=== PATIENT | female | born 1980 | race Caucasian/White ===

== ENCOUNTER 2022-09-04 09:19 | Outpatient (OUT) | payer OTHER, SELFPAY ==
[2022-09-04 10:25] LABS: Erythrocyte Sedimentation Rate 18 mm/hr (<=20)
[2022-09-04 11:12] LABS: Alanine Aminotransferase 35 U/L (14-59); Albumin Level 3.8 g/dL (3.4-5.0); Alkaline Phosphatase 114 U/L (46-116); Anion Gap 13.8; Aspartate Amino Transferase 26 U/L (15-37); BUN Creatinine Ratio 12.4; Bilirubin Total 0.3 mg/dL (0.2-1.0); C Reactive Protein 0.8 mg/dL (<=1.0); Calcium 8.8 mg/dL (8.5-10.1); Carbon Dioxide 25.6 mmol/L (21.0-32.0); Chloride 103 mmol/L (98-107); Estimated GFR (African America >60 (>=60); Estimated GFR (Non-African Ame 58 (>=60); Globulin 3.9 g/dL; Glucose 142 mg/dL (74-106); Potassium 3.4 mmol/L (3.5-5.1); Sodium 139 mmol/L (136-145); Thyroid Stimulating Hormone 1.884 uIU/mL (0.358-3.740); Total Protein 7.7 g/dL (6.4-8.2)
[2022-09-04 11:42] LABS: Free T4 0.64 ng/dL (0.76-1.46)
[2022-09-05 14:11] LABS: Antinuclear Antibodies, IFA Negative (.)
[2022-09-05 15:07] LABS: Albumin 3.9 g/dL (2.9-4.4); Alpha-1-Globulin 0.3 g/dL (0.0-0.4); Gamma Globulin 0.8 g/dL (0.4-1.8); Protein, Total 7.1 g/dL (6.0-8.5)
[2022-09-07 14:07] LABS: Methylmalonic Acid, Serum 168 nmol/L (0-378)
== END 2022-09-04 09:20 | disposition home or self-care (01) ==
LOC: LAB 09:26
PROVIDERS: PCP Nurse Practitioner Family; Visit Provider Physician Assistant Medical
DX: R20.2 Paresthesia of skin (principal); M79.10 Myalgia, unspecified site; M79.606 Pain in leg, unspecified
CPT/HCPCS: 36415; 80053; 82607; 82746; 83921; 84439; 84443; 85652; 86038; 86140

== ENCOUNTER 2022-10-11 10:22 | Outpatient (OUT) | payer OTHER, SELFPAY ==
[2022-10-11 10:55] LABS: Basophils Absolute Auto 0.1 10^3/uL (0.0-0.1); Basophils Percent Auto 0.8 % (0.2-2.0); Eosinophils Absolute Auto 0.2 10^3/uL (0.0-0.7); Eosinophils Percent Auto 1.8 % (0.9-7.0); Hematocrit 40.2 % (36.0-48.0); Immature Granulocytes Abs Auto 0.04 10^3/uL (0.00-0.03); Immature Granulocytes Pct Auto 0.4 % (0.0-0.5); Lymphocytes Absolute Auto 3.2 10^3/uL (1.2-3.8); Lymphocytes Percent Auto 32.9 % (20.5-60.0); Mean Corpuscular HGB Conc 32.3 g/dL (29.9-35.2); Mean Corpuscular Hemoglobin 28.3 pg (26.7-34.0); Mean Corpuscular Volume 87.6 fL (81.0-99.0); Mean Platelet Volume 8.4 fL (9.5-13.5); Monocytes Absolute Auto 0.6 10^3/uL (0.3-0.8); Neutrophils Absolute Auto 5.7 10^3/uL (1.4-6.5); Neutrophils Percent Auto 58.1 % (43.0-75.0); Platelet Count 371 10^3/uL (150-450); Red Blood Count 4.59 10^6/uL (4.20-5.40); Red Cell Distribution Width 14.9 % (11.0-15.0); White Blood Count 9.8 10^3/uL (4.0-11.0)
[2022-10-11 11:35] LABS: Estimated Average Glucose 114 mg/dL; Glycohemoglobin A1C 5.6 % (4.5-6.2)
[2022-10-11 11:50] LABS: Alanine Aminotransferase 49 U/L (14-59); Albumin Globulin Ratio 1.1; Alkaline Phosphatase 109 U/L (46-116); Anion Gap 14.3; Aspartate Amino Transferase 21 U/L (15-37); BUN Creatinine Ratio 14.8; Bilirubin Total 0.3 mg/dL (0.2-1.0); Calcium 8.9 mg/dL (8.5-10.1); Carbon Dioxide 26.7 mmol/L (21.0-32.0); Chloride 101 mmol/L (98-107); Chol HDL Ratio 4.2; Cholesterol 172 mg/dL (<=200); Estimated GFR (African America >60 (>=60); Estimated GFR (Non-African Ame 56 (>=60); Globulin 3.7 g/dL; Glucose 116 mg/dL (74-106); HDL Cholesterol 41 mg/dL (40-60); Sodium 138 mmol/L (136-145); Total Protein 7.7 g/dL (6.4-8.2); Triglycerides 60 mg/dL (<=150)
== END 2022-10-11 10:23 | disposition home or self-care (01) ==
PROVIDERS: PCP Nurse Practitioner Family; Visit Provider Nurse Practitioner Family
DX: R63.5 Abnormal weight gain (principal); E78.5 Hyperlipidemia, unspecified
CPT/HCPCS: 36415; 80053; 80061; 83036; 83540; 85025

== ENCOUNTER 2023-02-07 11:03 | Emergency (ER) | payer OTHER, SELFPAY ==
[2023-02-07 11:05] VITALS: BP 168/97; PULSE 102; RESP 16; TEMP 36.6; O2SAT 99; BMI 41.1
--- NOTE | 2023-02-07 11:28 | ED.GENADUL1 ---
HPI - General Adult General Chief complaint: Skin/Abscess/Foreign Body Stated complaint: LOCALIZED SWELLING AND REDNESS Time Seen by Provider: 02/07/23 11:20 Source: patient Mode of arrival: walk-in History of Present Illness HPI narrative: this patient's here for evaluation or redness at her site of the injection when she recently had influenza and cold vaccine. She's not had previous reactions to either. She stopped her methotrexate before getting this reaction at the advice of her physician. She has rheumatoid arthritis. She's not on any other immunosuppressants. She currently is taking all of her Augmentin, for recently diagnosed urinary tract infection. She does not believe that her facility did a culture of her urine. So she's been on the Augmentin for several days. She does not have any difficulty breathing. She says the areas just little achy and it itches. Related Data Home Medications Medication Instructions Recorded Confirmed amoxicillin 500 mg-potassium 1 tab PO BID 02/07/23 02/07/23 clavulanate 125 mg tablet buspirone 10 mg tablet 10 mg PO BID 02/07/23 02/07/23 cetirizine 5 mg-pseudoephedrine ER 1 tab PO DAILY PRN allergy symptoms 02/07/23 02/07/23 120 mg tablet,extended release,12hr (All Day Allergy-D) cyanocobalamin (vitamin B-12) 1,000 mcg IM .QMONTH 02/07/23 02/07/23 1,000 mcg/mL injection solution duloxetine 20 mg capsule,delayed 20 mg PO QPM 02/07/23 02/07/23 release (Cymbalta) furosemide 20 mg tablet (Lasix) 20 mg PO BID 02/07/23 02/07/23 meloxicam 15 mg tablet 15 mg PO QPM 02/07/23 02/07/23 multivitamin 1 tab PO DAILY 02/07/23 02/07/23 potassium chloride 10 mEq 10 meq PO BID 02/07/23 02/07/23 tablet,extended release quetiapine 50 mg tablet (Seroquel) 50 mg PO QPM 02/07/23 02/07/23 simvastatin 20 mg tablet 20 mg PO QPM 02/07/23 02/07/23 sumatriptan succinate 50 mg tablet See Rx Instructions PO .COMPLEX 02/07/23 02/07/23 (Imitrex) tizanidine 4 mg tablet 12 mg PO QPM 02/07/23 02/07/23 topiramate 25 mg tablet 75 mg PO QPM 02/07/23 02/07/23 trazodone 50 mg tablet 50 mg PO QPM PRN sleep 02/07/23 02/07/23 zolpidem 10 mg tablet (Ambien) 10 mg PO QPM PRN sleep 02/07/23 02/07/23 Allergies Allergy/AdvReac Type Severity Reaction Status Date / Time metformin Allergy Severe Verified 02/07/23 11:09 Sulfa (Sulfonamide Allergy Severe Verified 02/07/23 11:09 Antibiotics) Exam Narrative Exam Narrative: awake alert pleasant slightly elevation of her blood pressure. She does not appear ill or toxic. Her skin and integument do not show any rash with the exception of the area of erythema in her left deltoid area where she receives the injections. Her legs lips mouth tongue are normal with no swelling or difficulty breathing or speaking. She does not have generalized pruritus. There is no lymphangitis. The area of erythema is approximately 6-1/2-7 cm. This is all consistent with a localized reaction/non-anaphylactic and is not cellulitis. Constitutional Vital Signs, click to edit/add: Last Vital Signs Temp 97.9 F 02/07/23 11:05 Pulse 102 H 02/07/23 11:05 Resp 16 02/07/23 11:05 BP 168/97 H 02/07/23 11:05 Pulse Ox 99 02/07/23 11:05 O2 Del Method Room Air 02/07/23 11:05 Course Vital Signs Vital signs: Vital Signs Temperature 97.9 F 02/07/23 11:05 Pulse Rate 102 H 02/07/23 11:05 Respiratory Rate 16 02/07/23 11:05 Blood Pressure 168/97 H 02/07/23 11:05 Pulse Oximetry 99 02/07/23 11:05 Oxygen Delivery Method Room Air 02/07/23 11:05 Temperature 97.9 F 02/07/23 11:05 Pulse Rate 102 H 02/07/23 11:05 Respiratory Rate 16 02/07/23 11:05 Blood Pressure 168/97 H 02/07/23 11:05 Pulse Oximetry 99 02/07/23 11:05 Oxygen Delivery Method Room Air 02/07/23 11:[address] [facility] Narrative Medical decision making narrative: localized reaction from vaccine Discharge Plan Discharge Chief Complaint: Skin/Abscess/Foreign Body Clinical Impression: Accelerated inflammatory response to pneumococcal vaccine Patient Disposition: Home, Self-Care Time of Disposition Decision: 11:31 Prescriptions / Home Meds: No Action amoxicillin-pot clavulanate 500-125 mg tablet 1 tab PO BID buspirone 10 mg tablet 10 mg PO BID cyanocobalamin (vitamin B-12) 1,000 mcg/mL solution 1,000 mcg IM .QMONTH duloxetine [Cymbalta] 20 mg capsule,delayed release(DR/EC) 20 mg PO QPM furosemide [Lasix] 20 mg tablet 20 mg PO BID meloxicam 15 mg tablet 15 mg PO QPM multivitamin Tablet 1 tab PO DAILY potassium chloride 10 mEq tablet extended release 10 meq PO BID quetiapine [Seroquel] 50 mg tablet 50 mg PO QPM simvastatin 20 mg tablet 20 mg PO QPM tizanidine 4 mg tablet 12 mg PO QPM topiramate 25 mg tablet 75 mg PO QPM zolpidem [Ambien] 10 mg tablet 10 mg PO QPM PRN (Reason: sleep) trazodone 50 mg tablet 50 mg PO QPM PRN (Reason: sleep) cetirizine-pseudoephedrine [All Day Allergy-D] 5-120 mg tablet extended release 12 hr 1 tab PO DAILY PRN (Reason: allergy symptoms) sumatriptan succinate [Imitrex] 50 mg tablet See Rx Instructions .ROUTE .COMPLEX Rx Instructions: take 1 tab at onset of headache; if no relief may repeat 1 tab after at least 2 hrs; max = 4 tabs/24 hr Additional Instructions: apply ice to area for several days./May use Benadryl as needed Stand Alone Forms: Portal Instructions Referrals: CALVIN REIS [Primary Care Provider] - 1 week
== END 2023-02-07 11:40 | disposition home or self-care (01) ==
PROVIDERS: Emergency Provider Emergency Medicine Emergency Medical Services; PCP Nurse Practitioner Family
DX: T88.1XXA Other complications following immunization, not elsewhere classified, initial encounter (principal); M06.9 Rheumatoid arthritis, unspecified; Z79.899 Other long term (current) drug therapy; Z87.440 Personal history of urinary (tract) infections
CPT/HCPCS: 99282

== ENCOUNTER 2023-09-29 11:51 | Outpatient (OUT) | payer OTHER, SELFPAY ==
--- OUTSIDE RECORDS SUMMARY | 2023-09-29 11:56 | XMS_ITS | CCD ---
Author Organization [facility]iniSynd Care Team Providers Care Acquisition Manager Name Role Phone MD Boyd Herrera Primary Care Provider [phone] NORTH Reis Attending Provider [phone] CHATO, JENNY Admitting Unavailable CHATO, JENNY Attending Unavailable CHATO, JENNY Consulting Unavailable HOY ., DR CACERES Primary Care Unavailable CHATO, JENNY Admitting Unavailable CHATO, JENNY Attending Unavailable HOY ., DR CACERES Primary Care Unavailable CHATA ., JACEK Consulting Unavailable CHATA ., JACEK Admitting Unavailable HEMEYER ., DR CASTLE Primary Care Unavailable CHATA ., JACEK Attending Unavailable KEITH PETER Consulting Unavailable CHATO, JENNY Attending Unavailable CHATO, JENNY Admitting Unavailable HEMEYER ., DR CASTLE Primary Care Unavailable CHATO, JENNY Attending Unavailable CHATO, JENNY Admitting Unavailable HEMEYER ., DR CASTLE Primary Care Unavailable MD Boyd Herrera Primary Care Provider TATUM Duran Attending Provider MD Huey Sims Referring Provider MD Boyd Herrera Primary Care Provider TATUM Duran Attending Provider MD Huey Sims Referring Provider BLAYNE Dillard Attending Provider MD Boyd Herrera Primary Care Provider BLAYNE Dillard Attending Provider NORTH Ries Attending Provider TATUM Duran Attending Provider MD Huey Sims Referring Provider [phone] TATUM Duran Attending Provider MD Huey Sims Referring Provider MD Boyd Herrera Primary Care Provider [phone] BLAYNE Dillard Attending Provider Boyd Herrera Primary Care Unavailable Jenny Reis Admitting Unavailable Jenny Reis Attending Unavailable Gilma, Disha Attending Unavailable Boyd Herrera Primary Care Unavailable Gilma, Disha Admitting Unavailable Huey Sims Referring Unavailable Boyd Herrera Primary Care Unavailable Nicki Duran Admitting Unavail able Nicki Duran Attending Unavail able Gilma, Disha Attending Unavailable Boyd Herrera Primary Care Unavailable Disha Dillard Admitting Unavailable DISHA DILLARD Attending Unavailable ABUGHARBYEH, AYA Referring Unavailable PERKINS, CARLOS Referring Unavailable PERKINS, CARLOS Attending Unavailable PERKINS, CARLOS Referring Unavailable ABUGHARBYEH, AYA Referring Unavailable PERKINS, CARLOS Attending Unavailable PERKINS, CARLOS Referring Unavailable PERKINS, CARLOS Attending Unavailable PERKINS, CARLOS Referring Unavailable ABUGHARBYEH, AYA Referring Unavailable PERKINS, CARLOS Attending Unavailable PERKINS, CARLOS Referring Unavailable ABUGHARBYEH, AYA Referring Unavailable PERKINS, CARLOS Referring Unavailable PERKINS, CARLOS Attending Unavailable PERKINS, CARLOS Referring Unavailable ABUGHARBYEH, AYA Referring Unavailable ABUGHARBYEH, AYA Attending Unavailable ABUGHARBYEH, AYA Referring Unavailable ABUGHARBYEH, AYA Attending Unavailable PERKINS, CARLOS Attending Unavailable ABUGHARBYEH, AYA Attending Unavailable ABUGHARBYEH, AYA Attending Unavailable ABUGHARBYEH, AYA Attending Unavailable ABUGHARBYEH, AYA Attending Unavailable PERKINS, CARLOS Attending Unavailable ABUGHARBYEH, AYA Referring Unavailable ABUGHARBYEH, AYA Attending Unavailable BALDEV, ESTRELLITA Attending Unavailable PERKINS, CARLOS Referring Unavailable Allergies Allergy Classification Reported Allergen(s) Allergy Type Date of Onset Reaction(s) Facility (8 sources) metFORMIN Drug Allergy 11-05-19 Unknown Reaction, Gastrointestinal Upset [facility] [place] Repository (2 sources) pioglitazone Drug Allergy [facility] Repository (2 sources) Sulfonamides (Antibiotic) Drug allergy (disorder) 12-19-19 14 [facility] [place] Repository (8 sources) pioglitazone; Translations: [pioglitazone] Drug Allergy 11-05-19 Gastrointestinal Upset [facility] (8 sources) Sulfonamides (Antibiotic); Translations: [Sulfa (Sulfonamide Antibiotics)] Propensity to adverse reactions 08-27-19 Unknown Reaction, Difficulty Breathing [facility] (1 source) metFORMIN Drug Allergy 03-26-19 [facility] Repository (1 source) Acarbose; Translations: [ACARBOSE] Drug Allergy 08-27-19 [facility] Repository (1 source) metFORMIN; Translations: [METFORMIN HCL] Drug Allergy 08-27-19 [facility] Repository Medications Current Medications Medication Drug Class(es) Dates Sig (Normalized) Sig (Original) Cetirizine / Pseudoephedrine (6 sources) alpha-Adrenergic Agonist, Histamine-1 Receptor Antagonist Start: 11-03-2022 take 1 tablet by mouth once daily, then take 1 tablet by mouth every twelve hours Cetirizine-Pseud oephedrine (Zyrtec-D) 5-120 mg Tablet Extended Release 12 Hr Active 1 TAB PO Daily November 02, 2022 11:00pm Start: 11-03-2022 take 1 tablet by bentley th every twelve hours, then take 1 tablet by mouth every twelve hours Cetirizine-Pseudoephedrine (Zyrtec-D) 5- 120 mg Tablet Extended Release 12 Hr Active 1 TAB PO Q12H November 02, 2022 11:00pm Start: 11-03-2022 take 1 tablet by bentley th every twelve hours, then take 1 tablet by mouth every twelve hours Cetirizine-Pseudoephedrine (Zyrtec-D) 5- 120 mg Tablet Extended Release 12 Hr Active 1 TAB PO Q12H November 03, 2022 12:00am sprinkle DULoxetine 20 mg delayed release oral capsule (6 sources) Serotonin and Norepinephrine Reuptake Inhibitor Start: 11-03-2022 take 20 mg by mouth at bedtime Duloxetine Active 20 MG PO Bedtime November 02, 2022 11:00pm ferrous sulfate 325 mg oral tablet (7 sources) Start: 11-20-2022 End: 02-20-2023 take 325 mg by mouth once daily Ferrous Sulfate Active 325 MG PO Daily February 20, 2023 10:59am folic acid 1 mg oral tablet (1 source) Start: 03-26-2023 take 5 mg by mouth twice daily Folic Acid Active 5 MG PO Twice daily March 26, 2023 12:00am 1.5 ml fremanezumab-vfrm 150 mg/ml prefilled syringe (6 sources) Start: 11-03-2022 Fremanezumab-V fr m (Ajovy Autoinjector) 225 mg/1.5 mL Auto-Injector Active 225 MG SUBCUT Q30D November 02, 2022 11:00pm furosemide 20 mg oral tablet (6 sources) Loop Diuretic Start: 11-03-2022 take 1 tablet by mouth twice daily Furosemide (Lasix) 20 mg Tablet Active 20 MG PO Twice daily November 02, 2022 11:00pm Start: 11-03-2022 take 1 tablet by bentley th once daily Furosemide (Lasix) 20 mg Tablet Active 20 MG PO Daily November 02, 2022 11:00pm meloxicam 7.5 mg oral tablet (6 sources) Nonsteroidal Anti-inflammatory Drug Start: 11-04-2022 take 2 tablets by mouth at bedtime Meloxicam (Mobic) 7.5 mg Tablet Active 15 MG PO Bedtime November 03, 2022 11:00pm Start: 11-04-2022 take 1 tablet by bentley th once daily Meloxicam (Mobic) 7.5 mg Tablet Active 7.5 MG PO Daily November 03, 2022 11:00pm methotrexate 2.5 mg oral tablet (2 sources) Folate Analog Metabolic Inhibitor Start: 02-20-2023 Methotrexate Sodium (Methotrexate (Anti-Rheumatic)) 2.5 mg Tablet Active 12.5 MG PO every week February 20, 2023 12:00am On thursday night Start: 02-20-2023 take 1 tablet by bentley th every week Methotrexate Sodium (Methotrexate (Anti-Rheumatic)) 2.5 mg Tablet Active 2.5 MG PO every week February 20, 2023 12:00am Multivitamin (Multiple Vitamin) Tablet (6 sources) Start: 11-04-2022 take 1 tablet by mouth once daily Multivitamin (Multiple Vitamin) Tablet Active 1 TAB PO Daily November 03, 2022 11:00pm Start: 11-04-2022 take 1 tablet by bentley th once daily Multivitamin (Multiple Vitamin) Tablet Active 1 TAB PO Daily November 04, 2022 12:00am ondansetron 4 mg oral tablet (6 sources) Serotonin-3 Receptor Antagonist Start: 11-03-2022 take 1 tablet by mouth once daily Ondansetron Hcl (Zofran) 4 mg Tablet Active 4 MG PO Daily November 02, 2022 11:00pm phentermine hydrochloride 37.5 mg oral tablet (6 sources) Sympathomimetic Amine Anorectic Start: 11-04-2022 take 1 tablet by mouth once daily 30 minutes after breakfast Phentermine (Adipex-P) 37.5 mg Tablet Active 37.5 MG PO Daily November 03, 2022 11:00pm must administer 30 minutes before or 1-2 hours after breakfast potassium chloride 10 meq extended release oral tablet (1 source) Start: 03-26-2023 take 10 mEq by mouth twice daily Potassium Chloride Active 10 MEQ PO Twice daily March 26, 2023 12:00am predniSONE 5 mg oral tablet (2 sources) Start: 02-20-2023 Prednisone Active 5 MG PO As Directed February 20, 2023 12:00am see taper instructions QUEtiapine 25 mg oral tablet (6 sources) Atypical Antipsychotic Start: 11-03-2022 take 1 tablet by mouth once daily at bedtime Quetiapine (Seroquel) 25 mg Tablet Active 25 MG PO Daily at bedtime November 02, 2022 11:00pm simvastatin 20 mg oral tablet (6 sources) HMG-CoA Reductase Inhibitor Start: 11-03-2022 take 20 mg by mouth once daily Simvastatin Active 20 MG PO Daily November 02, 2022 11:00pm SUMAtriptan 50 mg oral tablet (6 sources) Serotonin-1b and Serotonin-1d Receptor Agonist Start: 11-03-2022 take 1 tablet by mouth once Sumatriptan Succinate (Imitrex) 50 mg Tablet Active 50 MG PO Once November 02, 2022 11:00pm tiZANidine 4 mg oral tablet (6 sources) Central alpha-2 Adrenergic Agonist Start: 11-03-2022 take 4 mg by mouth once daily at bedtime Tizanidine Active 4 MG PO Daily at bedtime November 02, 2022 11:00pm topiramate 25 mg oral tablet (6 sources) Start: 11-03-2022 take 4 tablets by mouth once daily at bedtime Topiramate (Topamax) 25 mg Tablet Active 100 MG PO Daily at bedtime November 02, 2022 11:00pm 3 tablets Start: 11-03-2022 take 1 tablet by bentley th once daily at bedtime Topiramate (Topamax) 25 mg Tablet Active 25 MG PO Daily at bedtime November 02, 2022 11:00pm 3 tablets traZODone hydrochloride 50 mg oral tablet (6 sources) Serotonin Reuptake Inhibitor Start: 11-03-2022 take 50 mg by mouth once daily at bedtime Trazodone Active 50 MG PO Daily at bedtime November 02, 2022 11:00pm zolpidem tartrate 10 mg oral tablet (6 sources) gamma-Aminobutyri c Acid-ergic Agonist Start: 11-03-2022 take 10 mg by mouth once daily at bedtime Zolpidem Active 10 MG PO Daily at bedtime November 02, 2022 11:00pm Completed/Discontinued Medications Medication Drug Class(es) Dates Sig (Normalized) Sig (Original) 24 hr amphetamine aspartate 5 mg / amphetamine sulfate 5 mg / dextroamphetamine saccharate 5 mg / dextroamphetamine sulfate 5 mg extended release oral capsule (6 sources) Central Nervous System Stimulant Start: 11-03-2022 End: 11-04-2022 take 1 capsule by mouth once daily, then take 1 capsule by mouth every twenty-four hours Dextroamphetamine- Amphetamine (Adderall Xr) 20 mg Capsule,Extended Release 24hr Discontinued 20 MG PO Daily November 02, 2022 11:00pm November 04, 2022 12:40pm lidocaine 0.05 mg/mg medicated patch (6 sources) Antiarrhythmic, Amide Local Anesthetic Start: 11-03-2022 End: 03-26-2023 apply 1 dose topically once daily Lidocaine Discontinued 1 PATCH TOPICAL Daily November 02, 2022 11:00pm March 26, 2023 8:36am leave on most painful area for up to 12 hrs methocarbamol 500 mg oral tablet (6 sources) Muscle Relaxant Start: 11-03-2022 End: 11-04-2022 take 500 mg by mouth three times daily Methocarbamol Discontinued 500 MG PO Three times daily November 02, 2022 11:00pm November 04, 2022 12:41pm Potassium (6 sources) Start: 11-03-2022 End: 03-26-2023 Potassium Discontinued MG TABLET November 02, 2022 11:00pm March 26, 2023 8:39am Start: 11-03-2022 Potassium Acti ve MG TABLET November 02, 2022 11:00pm Start: 11-03-2022 Potassium Acti ve MG TABLET November 03, 2022 12:00am pregabalin 300 mg oral capsule (6 sources) Start: 11-03-2022 End: 02-20-2023 take 1 capsule by mouth twice daily Pregabalin (Lyrica) 300 mg Capsule Discontinued 300 MG PO Twice daily November 02, 2022 11:00pm February 20, 2023 10:28am Problems Active Problems Problem Classification Problem Date Documented Date Episodic/Chronic Deficiency and other anemia (1 source) Anemia, unspecified; Translations: [ANEMIA UNSPECIFIED] Onset: 07-03-2022 Episodic Diabetes mellitus without complication (7 sources) Hyperglycemia, unspecified; Translations: [Impaired glucose tolerance (oral)] Onset: 06-28-2022 Episodic Fever of unknown origin (4 sources) Fever presenting with conditions classified elsewhere; Translations: [Fever, unspecified] Onset: 06-02-2023 Episodic Other aftercare (3 sources) 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; Translations: [OTH PNEUMATIC TUBE FITTER CURRENT DRUG THERAPY] Onset: 08-15-2021 Episodic Other connective tissue disease (2 sources) Fibromyalgia; Translations: [Fibromyalgia] Onset: 11-18-2022 Episodic Other hematologic conditions (5 sources) Protein electrophoresis abnormal; Translations: [Other specified abnormalities of plasma proteins] 11-04-2022 Episodic Other hematologic conditions (6 sources) Other specified abnormalities of plasma proteins; Translations: [Other nonspecific findings on examination of blood] Onset: 02-20-2023 11-20-2022 Episodic Other nervous system disorders (2 sources) Other chronic pain; Translations: [Other chronic pain] Onset: 12-22-2022 Chronic Other non-traumatic joint disorders (2 sources) Other specified arthritis, unspecified site; Translations: [Other specified arthritis, unspecified site] Onset: 02-02-2023 Chronic Residual codes; unclassified (2 sources) Personal history of systemic steroid therapy; Translations: [Personal history of systemic steroid therapy] Onset: 09-21-2023 Episodic Spondylosis; intervertebral disc disorders; other back problems (4 sources) Spondylosis without myelopathy or radiculopathy, lumbosacral region; Translations: [Spondylosis without myelopathy or radiculopathy, lumbar region] Onset: 03-30-2023 Chronic Spondylosis; intervertebral disc disorders; other back problems (12 sources) Sacrococcygeal disorders, not elsewhere classified; Translations: [Radiculopathy, lumbar region] Onset: 11-18-2022 Episodic Unclassified (1 source) CONTACT W/AND (SUSP) EXPOS COVID-19; Translations: [CONTACT W/AND (SUSP) EXPOS COVID-19] Onset: 08-15-2021 Past or Other Problems Problem Classification Problem Date Documented Da te Episodic/Chronic Calculus of urinary tract (1 source) Personal history of urinary calculi; Translations: [PERSONAL HISTORY OF URINARY CALCULI] Onset: 08-15-2021 Episodic Conditions associated with dizziness or vertigo (1 source) Dizziness and giddiness; Translations: [Dizziness and giddiness] Onset: 11-27-2022 Episodic Fluid and electrolyte disorders (1 source) Dehydration; Translations: [DEHYDRATION] Onset: 08-15-2021 Episodic Genitourinary symptoms and ill-defined conditions (2 sources) Dysuria; Translations: [Dysuria] Onset: 02-02-2023 Episodic Malaise and fatigue (3 sources) Weakness; Translations: [WEAKNESS] Onset: 08-12-2021 Episodic Other connective tissue disease (2 sources) Pain in right hand; Translations: [Pain in right hand] Onset: 11-18-2022 Episodic Other connective tissue disease (2 sources) Pain in left hand; Translations: [Pain in left hand] Onset: 11-18-2022 Episodic Other connective tissue disease (2 sources) Pain in right foot; Translations: [Pain in right foot] Onset: 11-18-2022 Episodic Other connective tissue disease (2 sources) Pain in left foot; Translations: [Pain in left foot] Onset: 11-18-2022 Episodic Other connective tissue disease (2 sources) Myalgia, unspecified site; Translations: [Myalgia, unspecified site] Onset: 11-18-2022 Episodic Other lower respiratory disease (2 sources) Chronic cough; Translations: [Chronic cough] Onset: 06-02-2023 Episodic Viral infection (1 source) Viral infection, unspecified; Translations: [VIRAL INFECTION UNSPECIFIED] Onset: 08-15-2021 Episodic Results Test Name Value Interpretation Reference Range Facility CBC WITH AUTO DIFFERENTIALon 09-21-2023 Basophils (Bld) [#/Vol] 0.04 10*3/uL Normal 0.00-0.20 [facility] Comment on above: Performed By: #### L [id number] #### [facility] ([facility]) [address] [place] [address] Basophils/100 WBC (Bld) 0.4 % Normal 0.0-1.0 [facility] Comment on above: Performed By: #### L [id number] #### [facility] ([facility]) [address] [place] [address] Eosinophils (Bld) [#/Vol] 0.11 10*3/uL Normal 0.00-0.50 [facility] Comment on above: Performed By: #### L [id number] #### [facility] ([facility]) [address] [place] [address] Eosinophils/100 WBC (Bld) 1.2 % Normal 0.0-6.0 [facility] Comment on above: Performed By: #### L [id number] #### [facility] ([facility]) [address] [place] [address] Erythrocyte distribution width (RBC) [Ratio] 13.5 % Normal 11.5-15.0 [facility] Comment on above: Performed By: #### L [id number] #### [facility] ([facility]) [address] [place] [address] ERYTHROCYTE MEAN CORPUSCULAR HEMOGLOBIN CONCENTRATION (G/DL) BY AUTOMATED 34.3 g/dL Normal 32.0-35.0 [facility] Comment on above: Performed By: #### L [id number] #### [facility] ([facility]) [address] [place] [address] Hematocrit (Bld) [Volume fraction] 40.5 % Normal 36.0-48.0 [facility] Comment on above: Performed By: #### L [id number] #### [facility] ([facility]) [address] [place] [address] Hemoglobin (Bld) [Mass/Vol] 13.9 g/dL Normal 12.0-15.0 [facility] Comment on above: Performed By: #### L [id number] #### [facility] ([facility]) [address] [place] [address] Immature granulocytes (Bld) [#/Vol] 0.02 10*3/uL Normal 0.00-0.20 [facility] Comment on above: Performed By: #### L [id number] #### [facility] ([facility]) [address] [place] [address] Immature granulocytes/100 WBC (Bld) 0.2 % Normal 0.0-1.0 [facility] Comment on above: Performed By: #### L [id number] #### [facility] ([facility]) [address] [place] [address] Lymphocytes (Bld) [#/Vol] 3.01 10*3/uL Normal 1.20-4.00 [facility] Comment on above: Performed By: #### L [id number] #### [facility] ([facility]) [address] [place] [address] Lymphocytes/100 WBC (Bld) 31.7 % Normal 20.0-45.0 [facility] Comment on above: Performed By: #### L [id number] #### [facility] ([facility]) [address] [place] [address] MCH (RBC) [Entitic mass] 30.6 pg Normal 27.0-33.0 [facility] Comment on above: Performed By: #### L [id number] #### [facility] ([facility]) [address] [place] [address] MCV (RBC) [Entitic vol] 89.2 fL Normal 82.0-98.0 [facility] Comment on above: Performed By: #### L [id number] #### [facility] ([facility]) [address] [place] [address] Monocytes (Bld) [#/Vol] 0.36 10*3/uL Normal 0.10-1.00 [facility] Comment on above: Performed By: #### L [id number] #### [facility] ([facility]) [address] [place] [address] Monocytes/100 WBC (Bld) 3.8 % Low 5.0-12.0 [facility] Comment on above: Performed By: #### L [id number] #### [facility] ([facility]) [address] [place] [address] Neutrophils (Bld) [#/Vol] 5.95 10*3/uL Normal 1.60-7.60 [facility] Comment on above: Performed By: #### L [id number] #### [facility] ([facility]) [address] [place] [address] Neutrophils/100 WBC (Bld) 62.7 % Normal 40.0-72.0 [facility] Comment on above: Performed By: #### L [id number] #### [facility] ([facility]) [address] [place] [address] NRBC (PER 100 WBCS) BY AUTOMATED COUNT 0.0 % Normal 0 [facility] Comment on above: Performed By: #### L [id number] #### [facility] ([facility]) [address] [place] [address] PLATELETS (10*3/UL) IN BLOOD AUTOMATED COUNT 313 10*3/uL Normal 150-400 [facility] Comment on above: Performed By: #### L [id number] #### [facility] ([facility]) [address] [place] [address] RBC (Bld) [#/Vol] 4.54 10*6/uL Normal 3.80-5.00 [facility] Comment on above: Performed By: #### L [id number] #### [facility] ([facility]) [address] [place] [address] WBC (Bld) [#/Vol] 9.49 10*3/uL Normal 4.00-10.60 [facility] Comment on above: Performed By: #### L [id number] #### [facility] ([facility]) [address] [place] [address] COMPREHENSIVE METABOLIC PANE Raimundo 09-21-2023 Albumin [Mass/Vol] 4.5 g/dL Normal 3.5-5.7 [facility] Comment on above: Performed By: #### L [id number] #### [facility] ([facility]) [address] [place] [address] ALP [Catalytic activity/Vol] 59 U/L Normal 34-104 [facility] Comment on above: Performed By: #### L [id number] #### [facility] ([facility]) [address] [place] [address] ALT [Catalytic activity/Vol] 21 U/L Normal 7-52 [facility] Comment on above: Performed By: #### L [id number] #### [facility] ([facility]) [address] [place] [address] Anion gap [Moles/Vol] 12 mmol/L Normal 7-20 [facility] Comment on above: Performed By: #### L [id number] #### [facility] ([facility]) [address] [place] [address] AST [Catalytic activity/Vol] 17 U/L Normal 13-39 [facility] Comment on above: Performed By: #### L [id number] #### [facility] ([facility]) [address] [place] [address] Bilirubin [Mass/Vol] 0.5 mg/dL Normal 0.3-1.0 [facility] Comment on above: Performed By: #### L [id number] #### [facility] ([facility]) [address] [place] [address] Calcium [Mass/Vol] 9.1 mg/dL Normal 8.6-10.3 [facility] Comment on above: Performed By: #### L [id number] #### [facility] ([facility]) [address] [place] [address] Chloride [Moles/Vol] 108 mmol/L High 98-107 [facility] Comment on above: Performed By: #### L [id number] #### [facility] ([facility]) [address] [place] [address] CO2 [Moles/Vol] 23 mmol/L Normal 21-31 [facility] Comment on above: Performed By: #### L [id number] #### [facility] ([facility]) [address] [place] [address] Creatinine [Mass/Vol] 1.16 mg/dL Normal 0.60-1.20 [facility] Comment on above: Performed By: #### L [id number] #### [facility] ([facility]) [address] [place] [address] GLOMERULAR FILTRATION RATE ML/MIN/1.73 SQ M.PREDICTED 60.4 mL/min/1.73m*2 Normal >60.0 [facility] Comment on above: Result Comment: The [facility]???s estimated glomerular filtration rate (eGFR) will no longer include consideration of race in its calculation. The [employer]???s eGFR Task Force developed new recommendations for the estimation of the glomerular filtration rate in the [place] They recommend immediate implementation of the new equation refit without the race variable in all laboratories because the calculation does not include race. In addition to not including race in the calculation and reporting, it included diversity in its development, and has acceptable performance characteristics and potential consequences that do not disproportionately affect any one group of individuals. Performed By: #### L [id number] #### [facility] ([facility]) [address] [place] [address] Glucose [Mass/Vol] 90 mg/dL Normal 70-100 [facility] Comment on above: Performed By: #### L [id number] #### [facility] ([facility]) [address] [place] [address] Potassium [Moles/Vol] 3.9 mmol/L Normal 3.5-5.[address] [facility] Comment on above: Performed By: #### L [id number] #### [facility] ([facility]) [address] [place] [address] Protein [Mass/Vol] 7.1 g/dL Normal 6.0-8.3 [facility] Comment on above: Performed By: #### L [id number] #### [facility] ([facility]) [address] [place] [address] Sodium [Moles/Vol] 139 mmol/L Normal 136-145 [facility] Comment on above: Performed By: #### L [id number] #### [facility] ([facility]) [address] [place] [address] Urea nitrogen [Mass/Vol] 13 mg/dL Normal 7-25 [facility] Comment on above: Performed By: #### L [id number] #### [facility] ([facility]) [address] [place] [address] UREA NITROGEN/CREATININE (MASS RATIO) IN SER/PLAS 11.2 Normal [facility] Comment on above: Performed By: #### L [id number] #### [facility] ([facility]) [address] [place] [address] Follow-Upon 09-21-2023 Follow-Up [id number] Delicia Serrano 1980 F Date Provider Department Center 09/21/2023 3554-[facility]STIANNE [facility] Family History Problem Relation Age of Onset Hypertension Mother Diabetes Mother Hyperlipidemia Mother Anxiety disorder Mother Depression Mother Migraines Mother Hypertension Father Diabetes Father Hyperlipidemia Father Arthritis Maternal Grandfather Cancer Maternal Grandfather Diabetes Maternal Grandfather Stroke Maternal Grandfather Arthritis Maternal Grandmother Cancer Maternal Grandmother Diabetes Maternal Grandmother Miscarriages / Stillbirths Maternal Grandmother Arthritis Paternal Grandfather Diabetes Paternal Grandfather Arthritis Paternal Grandmother Diabetes Paternal Grandmother Asthma Son Hypertension Son defects Daughter GI problems Daughter Cancer Father's Sister Cancer Father's Brother Hypertension Brother Mental illness Brother Family Status - Relation Status Age at Mother Father Maternal Grandfather Maternal Grandmother Paternal Grandfather Paternal Grandmother Son Daughter Father's Sister Father's Brother Brother Level of Service:33304 [place] OFFICE/OUTPATIENT ESTABLISHED MOD MDM 30 MIN (GC) Reason for Visit and Comments: Arthritis [[id number]] - 3 month follow up Normal [facility] HEMOGLOBIN A1Con 09-21-2023 Glucose [Mass/Vol] 105 mg/dL Normal [facility] Comment on above: Performed By: #### L [id number] ####[facility] ([facility])[address] [place] [address] HbA1c (Bld) [Mass fraction] 5.3 % Normal 4.0-6.0 [facility] Comment on above: Performed By: #### L [id number] ####[facility] ([facility]ER)[address] [place] [address] 36on 08-13-2023 36 Last visit 06/30/23 Upcoming visit 09/21/23 Last cbc/cmp 06/30/23 Normal [facility] Abstracton 08-13-2023 Abstract [id number] Delicia Serrano 1980 F Date Provider Department Center 08/13/2023 [facility] BR[facility] Family History Problem Relation Age of Onset Hypertension Mother Diabetes Mother Hyperlipidemia Mother Anxiety disorder Mother Depression Mother Migraines Mother Hypertension Father Diabetes Father Hyperlipidemia Father Arthritis Maternal Grandfather Cancer Maternal Grandfather Diabetes Maternal Grandfather Stroke Maternal Grandfather Arthritis Maternal Grandmother Cancer Maternal Grandmother Diabetes Maternal Grandmother Miscarriages / Stillbirths Maternal Grandmother Arthritis Paternal Grandfather Diabetes Paternal Grandfather Arthritis Paternal Grandmother Diabetes Paternal Grandmother Asthma Son Hypertension Son defects Daughter GI problems Daughter Cancer Father's Sister Cancer Father's Brother Hypertension Brother Mental illness Brother Family Status - Relation Status Age at Mother Father Maternal Grandfather Maternal Grandmother Paternal Grandfather Paternal Grandmother Son Daughter Father's Sister Father's Brother Brother Normal [facility] Refillon 05-30-2024 Refill [id number] ShashiDelicia Mesa 1980 F Date Provider Department Center 08/13/2023 [facility] Family History Problem Relation Age of Onset Hypertension Mother Diabetes Mother Hyperlipidemia Mother Anxiety disorder Mother Depression Mother Migraines Mother Hypertension Father Diabetes Father Hyperlipidemia Father Arthritis Maternal Grandfather Cancer Maternal Grandfather Diabetes Maternal Grandfather Stroke Maternal Grandfather Arthritis Maternal Grandmother Cancer Maternal Grandmother Diabetes Maternal Grandmother Miscarriages / Stillbirths Maternal Grandmother Arthritis Paternal Grandfather Diabetes Paternal Grandfather Arthritis Paternal Grandmother Diabetes Paternal Grandmother Asthma Son Hypertension Son defects Daughter GI problems Daughter Cancer Father's Sister Cancer Father's Brother Hypertension Brother Mental illness Brother Family Status - Relation Status Age at Mother Father Maternal Grandfather Maternal Grandmother Paternal Grandfather Paternal Grandmother Son Daughter Father's Sister Father's Brother Brother Reason for Visit and Comments: Med Refill [[id number]] [facility] ANEItz 08-06-2023 ANES ------ -- Attestation signed by Carlos Perkins MD at 08/28/2023 7:23 AM I saw and evaluated the patient, participating in the head portions of the service. I reviewed the resident???s/fellow's note. I agree with the resident???s/fellow's findings and plan. Carlos Perkins MD -- Patient: Delicia Serrano Pre-sedation Evaluation: Sedation necessary for: Analgesia and Anxiety Requesting service: pain management History of Present Illness: long standing back pain presents for a left SIJ injection Past Medical History: Diagnosis Date Back pain Chronic pain disorder Cluster headache Extremity pain Fibromyalgia, primary Headache Headache, tension-type Joint pain Low back pain Lyme disease Migraine Peripheral neuropathy Principle problems: Patient Active Problem List Diagnosis Date Noted Spondylosis without myelopathy or radiculopathy, lumbosacral region 03/30/2023 Lumbar spondylosis 03/30/2023 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 therapy 03/23/2023 Seronegative arthritis 02/02/2023 Lumbar radiculopathy 01/12/2023 Neuropathy 01/06/2023 Chronic midline low back pain with sciatica 12/22/2022 Current use of steroid medication 12/22/2022 Pseudotumor cerebri 12/22/2022 Radiculopathy, cervical region 12/22/2022 Hyperglycemia 12/22/2022 Pain in both feet 11/18/2022 Pain in both hands 11/18/2022 Myalgia 11/18/2022 Chronic neck pain 11/18/2022 Fibromyalgia 11/18/2022 state, incidental 01/09/2005 Allergies: Allergies Allergen Reactions Sulfa (Sulfonamide Antibiotics) Rash and Shortness of breath Other reaction(s): Unknown Other Reaction(s): Anaphylaxis-Bakers Yeast Metformin Hcl Other Reaction(s): GI Symptoms Pioglitazone Other reaction(s): stomach 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 cetirizine-pseudoephedrine (ZyrTEC-D) 5-120 mg 12 hr tablet Take 1 tablet by mouth if needed in the morning and at bedtime. ClearLax 17 gram/dose powder USE 1 SCOOP BY MOUTH MIXED WITH 8 OUNCES OF FLUID ONCE DAILY FOR 30 DAYS cyanocobalamin (Vitamin B-12) 1,000 mcg/mL injection INJECT 1ML IM MONTHLY DIRECTED diclofenac (Voltaren) 1 % topical gel APPLY VIA EXTERNAL ROUTE DAILY NEEDED FOR 30 DAYS DULoxetine (Cymbalta) [address] capsule Take 20 mg by mouth in the morning. ferrous sulfate 325 (65 Fe) MG tablet Take 1 tablet by mouth in the morning. FreeStyle Yared 3 Sensor device USE DIRECTED AND CHANGE EVERY 2 WEEKS FreeStyle Lite Strips strip furosemide (Lasix) 20 mg tablet Take 20 mg by mouth if needed in the morning and at bedtime. methotrexate 2.5 mg tablet Take 6 tablets (15 mg total) by mouth 1 (one) time per week 72 tablet 1 multivitamin tablet Take 1 tablet by mouth in the morning. OneTouch Delica Plus Lancet 33 gauge misc OneTouch Ultra2 Meter misc See administration instructions. phentermine (Adipex-P) 37.5 mg tablet Taking prn potassium chloride CR (Klor-Con) 10 mEq ER tablet Take 10 mEq by mouth in the morning and at bedtime. QUEtiapine (SEROquel) 50 mg tablet Take 50 mg by mouth with breakfast. simvastatin (Zocor) 20 mg tablet Take 20 mg by mouth in the evening. SUMAtriptan (Imitrex) 50 mg tablet TAKE ONE TABLET BY MOUTH AT LEAST 2 HOURS BETWEEN DOSES NEEDED FOR MIGRAINE FOR 30 DAYS tiZANidine (Zanaflex) 4 mg tablet TAKE THREE TABLETS BY MOUTH AT BEDTIME NEEDED topiramate (Topamax) 100 mg tablet Take 1 mg by mouth at bedtime. TAKE ALONG WITH 25 MG DOSE topiramate (Topamax) 25 mg tablet TAKE THREE TABLETS BY MOUTH DAILY AT BEDTIME traZODone (Desyrel) 50 mg tablet TAKE ONE TABLET BY MOUTH ONCE DAILY AT BEDTIME NEEDED zolpidem (Ambien) 10 mg tablet Take 10 mg by mouth at bedtime. No current facility-administered medications for this encounter. Past Surgical History: has a past surgical history that includes section, classic; Breast surgery (Bilateral); section, classic; Bladder repair; Other surgical history (01/12/2023); and Other surgical history (Bilateral, 06/09/2023). Recent sedation/surgery (24 hours) No Review of Systems: Please check all that apply: Obesity test completed prior to procedure on any menstruating female: none NPO guidelines met: Yes Physical Exam Airway Mallampati: II TM distance: >3 FB Neck ROM: full Cardiovascular Rhythm: re (more content not included)... Normal [facility] HPon 08-06-2023 HP H&P reviewed. The long rodgers was examined and there are no changes to the H&P. Continues to have low back pain Normal [facility] NURSNOTEon 08-06-2023 NURSNOTE Interventional Pain Management Nursing Note / Nurse Post-Call S/P Left SIJ VM left with RTC reminder 08/07/23 1045 Follow Up (Summarize discussion in comments) Patient given contact information for surgery department and physician Yes Normal [facility] Prep for Procedureon 024 Prep for Procedure [id number] Delicia Serrano 1980 F Date Provider Department Center 07/29/2023 CARLOS ROWE MP PROC Medical [facility] Family History Problem Relation Age of Onset Hypertension Mother Diabetes Mother Hyperlipidemia Mother Anxiety disorder Mother Depression Mother Migraines Mother Hypertension Father Diabetes Father Hyperlipidemia Father Arthritis Maternal Grandfather Cancer Maternal Grandfather Diabetes Maternal Grandfather Stroke Maternal Grandfather Arthritis Maternal Grandmother Cancer Maternal Grandmother Diabetes Maternal Grandmother Miscarriages / Stillbirths Maternal Grandmother Arthritis Paternal Grandfather Diabetes Paternal Grandfather Arthritis Paternal Grandmother Diabetes Paternal Grandmother Asthma Son Hypertension Son defects Daughter GI problems Daughter Cancer Father's Sister Cancer Father's Brother Hypertension Brother Mental illness Brother Family Status - Relation Status Age at Mother Father Maternal Grandfather Maternal Grandmother Paternal Grandfather Paternal Grandmother Son Daughter Father's Sister Father's Brother Brother Normal [facility] Follow-Upon 07-09-2023 Follow-Up [id number] Delicia Serrano 1980 F Date Provider Department Center 07/09/2023 ESTRELLITA LINTON MP PAIN Medical [facility]avi Family History Problem Relation Age of Onset Hypertension Mother Diabetes Mother Hyperlipidemia Mother Anxiety disorder Mother Depression Mother Migraines Mother Hypertension Father Diabetes Father Hyperlipidemia Father Arthritis Maternal Grandfather Cancer Maternal Grandfather Diabetes Maternal Grandfather Stroke Maternal Grandfather Arthritis Maternal Grandmother Cancer Maternal Grandmother Diabetes Maternal Grandmother Miscarriages / Stillbirths Maternal Grandmother Arthritis Paternal Grandfather Diabetes Paternal Grandfather Arthritis Paternal Grandmother Diabetes Paternal Grandmother Asthma Son Hypertension Son defects Daughter GI problems Daughter Cancer Father's Sister Cancer Father's Brother Hypertension Brother Mental illness Brother Family Status - Relation Status Age at Mother Father Maternal Grandfather Maternal Grandmother Paternal Grandfather Paternal Grandmother Son Daughter Father's Sister Father's Brother Brother Level of Service:62983 [place] OFFICE/OUTPATIENT ESTABLISHED LOW MDM 20 MIN Reason for Visit and Comments: Back Pain [12] - ИВАН RFA L4/5 L5/S1 - 85%improvement Hip Pain [433541] - Left hip pain Normal [facility] COMPREHENSIVE METABOLIC PANE Raimundo 06-30-2023 Albumin [Mass/Vol] 4.5 g/dL Normal 3.5-5.7 [facility] Comment on above: Performed By: #### L [id number] #### [facility] ([facility]) [address] [place] [address] ALP [Catalytic activity/Vol] 85 U/L Normal 34-104 [facility] Comment on above: Performed By: #### L [id number] #### [facility] ([facility]) [address] [place] [address] ALT [Catalytic activity/Vol] 19 U/L Normal 7-52 [facility] Comment on above: Performed By: #### L [id number] #### [facility] ([facility]) [address] [place] [address] Anion gap [Moles/Vol] 11 mmol/L Normal 7-20 [facility] Comment on above: Performed By: #### L [id number] #### [facility] ([facility]) [address] [place] [address] AST [Catalytic activity/Vol] 18 U/L Normal 13-39 [facility] Comment on above: Performed By: #### L [id number] #### [facility] ([facility]) [address] [place] [address] Bilirubin [Mass/Vol] 0.5 mg/dL Normal 0.3-1.0 [facility] Comment on above: Performed By: #### L [id number] #### [facility] ([facility]) [address] [place] [address] Calcium [Mass/Vol] 9.6 mg/dL Normal 8.6-10.3 [facility] Comment on above: Performed By: #### L [id number] #### [facility] ([facility]) [address] [place] [address] Chloride [Moles/Vol] 104 mmol/L Normal 98-107 [facility] Comment on above: Performed By: #### L [id number] #### [facility] ([facility]) [address] [place] [address] CO2 [Moles/Vol] 26 mmol/L Normal 21-31 [facility] Comment on above: Performed By: #### L [id number] #### [facility] ([facility]) [address] [place] [address] Creatinine [Mass/Vol] 0.97 mg/dL Normal 0.60-1.20 [facility] Comment on above: Performed By: #### L [id number] #### [facility] ([facility]) [address] [place] [address] GLOMERULAR FILTRATION RATE ML/MIN/1.73 SQ M.PREDICTED 74.8 mL/min/1.73m*2 Normal >60.0 [facility] Comment on above: Result Comment: The [facility]???s estimated glomerular filtration rate (eGFR) will no longer include consideration of race in its calculation. The [employer]???s eGFR Task Force developed new recommendations for the estimation of the glomerular filtration rate in the [place] They recommend immediate implementation of the new equation refit without the race variable in all laboratories because the calculation does not include race. In addition to not including race in the calculation and reporting, it included diversity in its development, and has acceptable performance characteristics and potential consequences that do not disproportionately affect any one group of individuals. Performed By: #### L [id number] #### [facility] ([facility]) [address] [place] [address] Glucose [Mass/Vol] 93 mg/dL Normal 70-100 [facility] Comment on above: Performed By: #### L [id number] #### [facility] ([facility]) [address] [place] [address] Potassium [Moles/Vol] 3.9 mmol/L Normal 3.5-5.[address] [facility] Comment on above: Performed By: #### L [id number] #### [facility] ([facility]) [address] [place] [address] Protein [Mass/Vol] 7.0 g/dL Normal 6.0-8.3 [facility] Comment on above: Performed By: #### L [id number] #### [facility] ([facility]) [address] [place] [address] Sodium [Moles/Vol] 137 mmol/L Normal 136-145 [facility] Comment on above: Performed By: #### L [id number] #### [facility] ([facility]) [address] [place] [address] Urea nitrogen [Mass/Vol] 17 mg/dL Normal 7-25 [facility] Comment on above: Performed By: #### L [id number] #### [facility] ([facility]) [address] [place] [address] UREA NITROGEN/CREATININE (MASS RATIO) IN SER/PLAS 17.5 Normal [facility] Comment on above: Performed By: #### L [id number] #### [facility] ([facility]) [address] [place] [address] Follow-Upon 06-30-2023 Follow-Up [id number] Delicia Serrano 1980 F Date Provider Department Center 06/30/2023 Sabrina4CHRISTIANNE SABILLON [facility] Family History Problem Relation Age of Onset Hypertension Mother Diabetes Mother Hyperlipidemia Mother Anxiety disorder Mother Depression Mother Migraines Mother Hypertension Father Diabetes Father Hyperlipidemia Father Arthritis Maternal Grandfather Cancer Maternal Grandfather Diabetes Maternal Grandfather Stroke Maternal Grandfather Arthritis Maternal Grandmother Cancer Maternal Grandmother Diabetes Maternal Grandmother Miscarriages / Stillbirths Maternal Grandmother Arthritis Paternal Grandfather Diabetes Paternal Grandfather Arthritis Paternal Grandmother Diabetes Paternal Grandmother Asthma Son Hypertension Son defects Daughter GI problems Daughter Cancer Father's Sister Cancer Father's Brother Hypertension Brother Mental illness Brother Family Status - Relation Status Age at Mother Father Maternal Grandfather Maternal Grandmother Paternal Grandfather Paternal Grandmother Son Daughter Father's Sister Father's Brother Brother Level of Service:52228 [place] OFFICE/OUTPATIENT ESTABLISHED MOD MDM 30 MIN (GC) Reason for Visit and Comments: Follow-up [[id number]] Normal [facility] HEMOGLOBIN A1Con 06-30-2023 Glucose [Mass/Vol] 88 mg/dL [facility] Comment on above: Performed By: #### L [id number] #### [facility] ([facility]) [address] [place] [address] HbA1c (Bld) [Mass fraction] 4.7 % Normal 4.0-6.0 [facility] Comment on above: Performed By: #### L [id number] #### [facility] ([facility]) [address] [place] [address] Labon 06-30-2023 Lab [id number] Delicia Serrano 1980 F Date Provider Department Center 06/30/2023 2244-[facility] MP LAB RESOURCE MP DRAW Medical Pavi Family History Problem Relation Age of Onset Hypertension Mother Diabetes Mother Hyperlipidemia Mother Anxiety disorder Mother Depression Mother Migraines Mother Hypertension Father Diabetes Father Hyperlipidemia Father Arthritis Maternal Grandfather Cancer Maternal Grandfather Diabetes Maternal Grandfather Stroke Maternal Grandfather Arthritis Maternal Grandmother Cancer Maternal Grandmother Diabetes Maternal Grandmother Miscarriages / Stillbirths Maternal Grandmother Arthritis Paternal Grandfather Diabetes Paternal Grandfather Arthritis Paternal Grandmother Diabetes Paternal Grandmother Asthma Son Hypertension Son defects Daughter GI problems Daughter Cancer Father's Sister Cancer Father's Brother Hypertension Brother Mental illness Brother Family Status - Relation Status Age at Mother Father Maternal Grandfather Maternal Grandmother Paternal Grandfather Paternal Grandmother Son Daughter Father's Sister Father's Brother Brother Normal [facility] URINALYSISon 06-30-2023 BILIRUBIN, TOTAL PRESENCE IN URINE Negative Normal Negative [facility] Comment on above: Order Comment: Micro scopics not performed on urines with negative chemical reactions unless requested on original order. Performed By: #### L [id number] #### [facility] ([facility]) [address] [place] [address] Clarity (U) Clear Normal Clear [facility] Comment on above: Order Comment: Micro scopics not performed on urines with negative chemical reactions unless requested on original order. Performed By: #### L [id number] #### [facility] ([facility]) [address] [place] [address] Color (U) Straw Abnormal Yellow [facility] Comment on above: Order Comment: Micro scopics not performed on urines with negative chemical reactions unless requested on original order. Performed By: #### L [id number] #### [facility] ([facility]) [address] [place] [address] Glucose (U) [Mass/Vol] Negative Normal Negative [facility] Comment on above: Order Comment: Micro scopics not performed on urines with negative chemical reactions unless requested on original order. Performed By: #### L [id number] #### [facility] ([facility]) [address] [place] [address] HEMOGLOBIN PRESENCE IN URINE Negative Normal Negative [facility] Comment on above: Order Comment: Micro scopics not performed on urines with negative chemical reactions unless requested on original order. Performed By: #### L [id number] #### [facility] ([facility]) [address] [place] [address] Ketones Ql (U) Negative Normal Negative [facility] Comment on above: Order Comment: Micro scopics not performed on urines with negative chemical reactions unless requested on original order. Performed By: #### L [id number] #### [facility] ([facility]) [address] [place] [address] LEUKOCYTE ESTERASE PRESENCE IN URINE BY TEST STRIP Negative Normal Negative [facility] Comment on above: Order Comment: Micro scopics not performed on urines with negative chemical reactions unless requested on original order. Performed By: #### L [id number] #### [facility] ([facility]) [address] [place] [address] NITRITE PRESENCE IN URINE Negative Normal Negative [facility] Comment on above: Order Comment: Micro scopics not performed on urines with negative chemical reactions unless requested on original order. Performed By: #### L [id number] #### [facility] ([facility]) [address] [address] pH (U) 5.0 [pH] Normal 5.0-8.0 [facility] Comment on above: Order Comment: Micro scopics not performed on urines with negative chemical reactions unless requested on original order. Performed By: #### L [id number] #### [facility] ([facility]) [address] [place] [address] Protein (U) [Mass/Vol] Negative Normal Negative Un [facility] Comment on above: Order Comment: Micro scopics not performed on urines with negative chemical reactions unless requested on original order. Performed By: #### L [id number] #### [facility] ([facility]) [address] [place] [address] Specific gravity (U) [Rel density] 1.006 Low 1.015-1.020 [facility] Comment on above: Order Comment: Micro scopics not performed on urines with negative chemical reactions unless requested on original order. Performed By: #### L [id number] #### [facility] ([facility]) [address] [place] [address] URINE CULTURE, ROUTINEon Bacteria identified Cx Nom (U) 10,000 - 50,000 CFU/ML Uro-Genital Mariela Normal [facility] Comment on above: Performed By: #### L [id number] ####[facility] ([facility])[address] [address] ANESon 06-09-2023 ANES ------ -- Attestation signed by Carlos Perkins MD at 06/25/2023 11:55 AM I saw and evaluated the patient, participating in the head portions of the service. I reviewed the resident???s/fellow's note. I agree with the resident???s/fellow's findings and plan. Carlos Perkins MD -- Patient: Delicia Serrano Pre-sedation Evaluation: Sedation necessary for: Immobility, Analgesia, and Anxiety Requesting service: Pain management History of Present Illness: 43 yo F with chronic low back pain here for bilateral RFA L4/L5 L5/S1. 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 03/23/2023 Seronegative arthritis 02/02/2023 Lumbar radiculopathy 01/12/2023 Neuropathy 01/06/2023 Chronic midline low back pain with sciatica 12/22/2022 Current use of steroid medication 12/22/2022 Pseudotumor cerebri 12/22/2022 Radiculopathy, cervical region 12/22/2022 Hyperglycemia 12/22/2022 Pain in both feet 11/18/2022 Pain in both hands 11/18/2022 Myalgia 11/18/2022 Chronic neck pain 11/18/2022 Fibromyalgia 11/18/2022 state, incidental 01/09/2005 Allergies: Allergies Allergen Reactions Sulfa (Sulfonamide Antibiotics) Rash and Shortness of breath Other reaction(s): Unknown Other Reaction(s): Anaphylaxis-Bakers Yeast Metformin Hcl Other Reaction(s): GI Symptoms Pioglitazone Other reaction(s): stomach upset 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 14 tablet 0 methotrexate 2.5 mg tablet Take 5 tablets (12.5 mg total) by mouth 1 (one) time per week 60 tablet 0 Ajovy Syringe 225 mg/1.5 mL prefilled syringe INJECT 1.5ML VIA SUBCUTANEOUS ROUTE MONTHLY 30 wvajkio-lajywqgehvkwf-eyix eine (Excedrin Extra Strength) 250-250-65 mg tablet 2 tablets Orally Once a day PRN BD Luer-Diana Syringe 3 mL 23 x 1 syringe USE DIRECTED TO INJECT CYANOCOBALAMIN busPIRone (Buspar) 15 mg tablet Take 15 mg by mouth in the morning and at bedtime. cetirizine-pseudoephedrine (ZyrTEC-D) 5-120 mg 12 hr tablet Take 1 tablet by mouth if needed in the morning and at bedtime. ClearLax 17 gram/dose powder USE 1 SCOOP BY MOUTH MIXED WITH 8 OUNCES OF FLUID ONCE DAILY FOR 30 DAYS cyanocobalamin (Vitamin B-12) 1,000 mcg/mL injection INJECT 1ML IM MONTHLY DIRECTED cyclobenzaprine (Flexeril) 5 mg tablet TAKE ONE TABLET BY MOUTH TWICE A DAY DURING THE DAY NEEDED FOR MUSCLE SPASM -DO NOT TAKE WITH ZANAFLEX diclofenac (Voltaren) 1 % topical gel APPLY VIA EXTERNAL ROUTE DAILY NEEDED FOR 30 DAYS DULoxetine (Cymbalta) [address] capsule Take 20 mg by mouth in the morning. ferrous sulfate 325 (65 Fe) MG tablet Take 1 tablet by mouth in the morning. folic acid (Folvite) 1 mg tablet Take 1 tablet (1 mg) by mouth in the morning and at bedtime. 60 tablet 3 FreeStyle Yared 3 Sensor device USE DIRECTED AND CHANGE EVERY 2 WEEKS FreeStyle Lite Strips strip furosemide (Lasix) 20 mg tablet Take 20 mg by mouth if needed in the morning and at bedtime. meloxicam (Mobic) 15 mg tablet Take 15 mg by mouth in the morning. multivitamin tablet Take 1 tablet by mouth in the morning. OneTouch Delica Plus Lancet 33 gauge misc OneTouch Ultra2 Meter misc See administration instructions. phentermine (Adipex-P) 37.5 mg tablet Taking prn potassium chloride CR (Klor-Con) 10 mEq ER tablet Take 10 mEq by mouth in the morning and at bedtime. QUEtiapine (SEROquel) 50 mg tablet Take 50 mg by mouth with breakfast. simvastatin (Zocor) 20 mg tablet Take 20 mg by mouth in the evening. SUMAtriptan (Imitrex) 50 mg tablet TAKE ONE TABLET BY MOUTH AT LEAST 2 HOURS BETWEEN DOSES NEEDED FOR MIGRAINE FOR 30 DAYS tiZANidine (Zanaflex) 4 mg tablet TAKE THREE TABLETS BY MOUTH AT BEDTIME NEEDED topiramate (Topamax) 100 mg tablet Take 100 mg by mouth at bedtime. topiramate (Topamax) 25 mg tablet TAKE THREE TABLETS BY MOUTH DAILY AT BEDTIME traZODone (Desyrel) 50 mg tablet TAKE ONE TABLET BY MOUTH ONCE DAILY AT BEDTIME NEEDED zolpidem (Ambien) 10 mg tablet Take 10 mg by mouth at bedtime. No current facility-administered medications for this encounter. Past Surgical History: has a past surgical history that includes section, classic; (more content not included)... [facility] NURSNOTEon 06-09-2023 NURSNOTE Interventional Pain Management Nursing Note / Nurse Post-Call Note Narrative Post call reports doing well, no concerns 05/23 pain, RTC 07/08 1100 06/10/23 1247 Physical Condition (Summarize discussion in comments) Have you had trouble breathing? No Have you had a sore throat? No Have you vomited or felt nauseated? No Have you had a fever? No Pain Score 3 Follow Up (Summarize discussion in comments) Have you done any of the following since your surgery? None Patient given contact information for surgery department and physician Yes [facility] Prep for Procedureon 024 Prep for Procedure [id number] Delicia Serrano 1980 F Date Provider Department Center 06/09/2023 CARLOS ROWE MP [facility] Family History Problem Relation Age of Onset Hypertension Mother Diabetes Mother Hyperlipidemia Mother Anxiety disorder Mother Depression Mother Migraines Mother Hypertension Father Diabetes Father Hyperlipidemia Father Arthritis Maternal Grandfather Cancer Maternal Grandfather Diabetes Maternal Grandfather Stroke Maternal Grandfather Arthritis Maternal Grandmother Cancer Maternal Grandmother Diabetes Maternal Grandmother Miscarriages / Stillbirths Maternal Grandmother Arthritis Paternal Grandfather Diabetes Paternal Grandfather Arthritis Paternal Grandmother Diabetes Paternal Grandmother Asthma Son Hypertension Son defects Daughter GI problems Daughter Cancer Father's Sister Cancer Father's Brother Hypertension Brother Mental illness Brother Family Status - Relation Status Age at Mother Father Maternal Grandfather Maternal Grandmother Paternal Grandfather Paternal Grandmother Son Daughter Father's Sister Father's Brother Brother Normal [facility] Orders Onlyon 06-05-2023 Orders Only [id number] Delicia Serrano 1980 Provider Department Center 06/05/2023 Rex-CHRISTIANNE DA SILVA UTCF RHEUM UTCF Family History Problem Relation Age of Onset Hypertension Mother Diabetes Mother Hyperlipidemia Mother Anxiety disorder Mother Depression Mother Migraines Mother Hypertension Father Diabetes Father Hyperlipidemia Father Arthritis Maternal Grandfather Cancer Maternal Grandfather Diabetes Maternal Grandfather Stroke Maternal Grandfather Arthritis Maternal Grandmother Cancer Maternal Grandmother Diabetes Maternal Grandmother Miscarriages / Stillbirths Maternal Grandmother Arthritis Paternal Grandfather Diabetes Paternal Grandfather Arthritis Paternal Grandmother Diabetes Paternal Grandmother Asthma Son Hypertension Son defects Daughter GI problems Daughter Cancer Father's Sister Cancer Father's Brother Hypertension Brother Mental illness Brother Family Status - Relation Status Age at Mother Father Maternal Grandfather Maternal Grandmother Paternal Grandfather Paternal Grandmother Son Daughter Father's Sister Father's Brother Brother Normal [facility] Prep for Procedureon 024 Prep for Procedure [id number] Delicia Serrano 1980 F Date Provider Department Center 06/03/2023 CARLOS ROWE MP [facility] Medical Pavi Family History Problem Relation Age of Onset Hypertension Mother Diabetes Mother Hyperlipidemia Mother Anxiety disorder Mother Depression Mother Migraines Mother Hypertension Father Diabetes Father Hyperlipidemia Father Arthritis Maternal Grandfather Cancer Maternal Grandfather Diabetes Maternal Grandfather Stroke Maternal Grandfather Arthritis Maternal Grandmother Cancer Maternal Grandmother Diabetes Maternal Grandmother Miscarriages / Stillbirths Maternal Grandmother Arthritis Paternal Grandfather Diabetes Paternal Grandfather Arthritis Paternal Grandmother Diabetes Paternal Grandmother Asthma Son Hypertension Son defects Daughter GI problems Daughter Cancer Father's Sister Cancer Father's Brother Hypertension Brother Mental illness Brother Family Status - Relation Status Age at Mother Father Maternal Grandfather Maternal Grandmother Paternal Grandfather Paternal Grandmother Son Daughter Father's Sister Father's Brother Brother Normal [facility] BASIC METABOLIC PANELon 05-14 Anion gap [Moles/Vol] 11 mmol/L Normal 7-20 [facility] Comment on above: Performed By: #### L [id number] #### [facility] ([facility]) [address] [place] [address] Calcium [Mass/Vol] 8.2 mg/dL Low 8.6-10.3 [facility] Comment on above: Performed By: #### L [id number] #### [facility] ([facility]) [address] [place] [address] Chloride [Moles/Vol] 110 mmol/L High 98-107 [facility] Comment on above: Performed By: #### L [id number] #### [facility] ([facility]) [address] [place] [address] CO2 [Moles/Vol] 23 mmol/L Normal 21-31 [facility] Comment on above: Performed By: #### L [id number] #### [facility] ([facility]) [address] [place] [address] Creatinine [Mass/Vol] 0.91 mg/dL Normal 0.60-1.20 [facility] Comment on above: Performed By: #### L [id number] #### [facility] ([facility]) [address] [place] [address] GLOMERULAR FILTRATION RATE ML/MIN/1.73 SQ M.PREDICTED 80.8 mL/min/1.73m*2 Normal >60.0 [facility] Comment on above: Result Comment: The [facility]???s estimated glomerular filtration rate (eGFR) will no longer include consideration of race in its calculation. The National Kidney Foundation???s eGFR Task Force developed new recommendations for the estimation of the glomerular filtration rate in the [place] They recommend immediate implementation of the new equation refit without the race variable in all laboratories because the calculation does not include race. In addition to not including race in the calculation and reporting, it included diversity in its development, and has acceptable performance characteristics and potential consequences that do not disproportionately affect any one group of individuals. Performed By: #### L [id number] #### [facility] ([facility]) [address] [place] [address] Glucose [Mass/Vol] 127 mg/dL High 70-100 [facility] Comment on above: Performed By: #### L [id number] #### [facility] ([facility]) [address] [place] [address] Potassium [Moles/Vol] 3.5 mmol/L Normal 3.5-5.1 [facility] Comment on above: Performed By: #### L [id number] #### [facility] ([facility]) [address] [place] [address] Sodium [Moles/Vol] 140 mmol/L Normal 136-145 [facility] Comment on above: Performed By: #### L [id number] #### [facility] ([facility]) [address] [place] [address] Urea nitrogen [Mass/Vol] 18 mg/dL Normal 7-25 [facility] Comment on above: Performed By: #### L [id number] #### [facility] ([facility]) [address] [place] [address] UREA NITROGEN/CREATININE (MASS RATIO) IN SER/PLAS 19.8 Normal [facility] Comment on above: Performed By: #### L [id number] #### [facility] ([facility]) [address] [facility] [place] [address] BLOOD CULTUREon 06-02-2023 Bacteria identified Cx Nom (Bld) No growth at 5 days Normal [facility] Comment on above: Performed By: #### L [id number] ####[facility] ([facility])[address] [place] [address] C3 COMPLEMENTon 06-02-2023 Magnesium [Mass/Vol] 142.00 mg/dL Normal 79.00-1 52.0 0 [facility] Comment on above: Performed By: #### L [id number] #### [facility] ([facility]) [address] [place] [address] C4 COMPLEMENTon 06-02-2023 Magnesium [Mass/Vol] 38.9 mg/dL High 16-38 [facility] Comment on above: Performed By: #### L [id number] ####[facility] ([facility])[address] [place] [address] Follow-Upon 06-02-2023 Follow-Up [id number] Delicia Serrano 1980 F Date Provider Department Center 06/02/2023 3554-CHRISTIANNE DA SILVA [facility] Family History Problem Relation Age of Onset Hypertension Mother Diabetes Mother Hyperlipidemia Mother Anxiety disorder Mother Depression Mother Migraines Mother Hypertension Father Diabetes Father Hyperlipidemia Father Arthritis Maternal Grandfather Cancer Maternal Grandfather Diabetes Maternal Grandfather Stroke Maternal Grandfather Arthritis Maternal Grandmother Cancer Maternal Grandmother Diabetes Maternal Grandmother Miscarriages / Stillbirths Maternal Grandmother Arthritis Paternal Grandfather Diabetes Paternal Grandfather Arthritis Paternal Grandmother Diabetes Paternal Grandmother Asthma Son Hypertension Son defects Daughter GI problems Daughter Cancer Father's Sister Cancer Father's Brother Hypertension Brother Mental illness Brother Family Status - Relation Status Age at Mother Father Maternal Grandfather Maternal Grandmother Paternal Grandfather Paternal Grandmother Son Daughter Father's Sister Father's Brother Brother Level of Service:36959 [place] OFFICE/OUTPATIENT ESTABLISHED MOD MDM 30 MIN Reason for Visit and Comments: Follow-up [[id number]] - generalized pain; 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 Normal [facility] Labon 06-02-2023 Lab [id number] Delicia Serrano 1980 F Date Provider Department Center 06/02/2023 2244-[facility] LAB RESOURCE MP DRAW Medical Pavi Family History Problem Relation Age of Onset Hypertension Mother Diabetes Mother Hyperlipidemia Mother Anxiety disorder Mother Depression Mother Migraines Mother Hypertension Father Diabetes Father Hyperlipidemia Father Arthritis Maternal Grandfather Cancer Maternal Grandfather Diabetes Maternal Grandfather Stroke Maternal Grandfather Arthritis Maternal Grandmother Cancer Maternal Grandmother Diabetes Maternal Grandmother Miscarriages / Stillbirths Maternal Grandmother Arthritis Paternal Grandfather Diabetes Paternal Grandfather Arthritis Paternal Grandmother Diabetes Paternal Grandmother Asthma Son Hypertension Son defects Daughter GI problems Daughter Cancer Father's Sister Cancer Father's Brother Hypertension Brother Mental illness Brother Family Status - Relation Status Age at Mother Father Maternal Grandfather Maternal Grandmother Paternal Grandfather Paternal Grandmother Son Daughter Father's Sister Father's Brother Brother Normal [facility] URINALYSISon 06-02-2023 BILIRUBIN, TOTAL PRESENCE IN URINE Negative Normal Negative [facility] Comment on above: Performed By: #### L [id number] #### [facility] ([facility]) [address] [place] [address] Clarity (U) Slightly Cloudy Abnormal Clear [facility] Comment on above: Performed By: #### L [id number] #### [facility] ([facility]) [address] [place] [address] Color (U) Dinora Abnormal Yellow [facility] Comment on above: Performed By: #### L [id number] #### [facility] ([facility]) [address] [place] [address] Glucose (U) [Mass/Vol] Negative Normal Negative [facility] Comment on above: Performed By: #### L [id number] #### [facility] ([facility]) [address] [place] [address] HEMOGLOBIN PRESENCE IN URINE Negative Normal Negative [facility] Comment on above: Performed By: #### L [id number] #### [facility] ([facility]) [address] [place] [address] Ketones Ql (U) Negative Normal Negative [facility] Comment on above: Performed By: #### L [id number] #### [facility] ([facility]) [address] [place] [address] LEUKOCYTE ESTERASE PRESENCE IN URINE BY TEST STRIP Negative Normal Negative [facility] Comment on above: Performed By: #### L [id number] #### [facility] ([facility]) [address] [place] [address] NITRITE PRESENCE IN URINE Negative Normal Negative [facility] Comment on above: Performed By: #### L [id number] #### [facility] ([facility]) [address] [place] [address] pH (U) 5.0 [pH] Normal 5.0-8.0 [facility] Comment on above: Performed By: #### L [id number] #### [facility] ([facility]) [address] [place] [address] Protein (U) [Mass/Vol] 30 mg/dL Abnormal Negative [facility] Comment on above: Performed By: #### L [id number] #### [facility] ([facility]) [address] [place] [address] Specific gravity (U) [Rel density] 1.027 High 1.015-1.020 [facility] Comment on above: Performed By: #### L [id number] #### [facility] ([facility]) [address] [place] [address] URINALYSIS MICROSCOPICon CALCIUM OXALATE CRYSTALS (#/HPF) IN URINE Many Abnormal None Seen [facility] Comment on above: Performed By: #### L [id number] #### [facility] ([facility]) [address] [place] [address] CASTS IN URINE Normal [facility] Comment on above: Performed By: #### L [id number] #### [facility] ([facility]) [address] [place] [address] CRYSTALS IN URINE Present Abnormal None Seen [facility] Comment on above: Performed By: #### L [id number] #### [facility] ([facility]) [address] [place] [address] MUCUS (#/HPF) IN URINE SEDIMENT Few Normal None Seen, Occasional, Few [facility] Comment on above: Performed By: #### L [id number] #### [facility] ([facility]) [address] [place] [address] RBC (#/HPF) IN URINE SEDIMENT 3-5 Abnormal None Seen [facility] Comment on above: Performed By: #### L [id number] #### [facility] ([facility]) [address] [place] [address] SQUAMOUS EPITHELIAL CELLS (#/HPF) IN URINE SEDIMENT Many Abnormal None Seen, Occasional [facility] Comment on above: Performed By: #### L [id number] #### [facility] ([facility]) [address] [place] [address] WBC (LEUKOCYTE) (#/HPF) IN URINE SEDIMENT 3-5 Abnormal None Seen [facility] Comment on above: Performed By: #### L [id number] #### [facility] ([facility]) [address] [place] [address] URINE CULTURE, ROUTINEon Bacteria identified Cx Nom (U) GARDNERELLA VAGINALIS Abnormal [facility] Comment on above: Result Comment: 50,0 00 - 100,000 CFU/Ml Gardnerella vaginalis Presumptive Identification Performed By: #### L [id number] ####[facility] ([facility])[address] [place] [address] 36on 06-01-2023 36 PT calling stating t he following: generalized pain; 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 PT reports having cough since Thanks[place] and fever in the last 3 weeks since Lumbar puncture performed at [facility]. APPT offered for Thursday, 06/01. Scheduled to be evaluated. ric Normal [facility] HPon 05-19-2023 HP History Of Present I llness Delicia Serrano is a 43 y.o. female presenting with chronic low back pain here for bilateral RFA L4-L5, L5-S1. Past Medical History She has a past medical history of Back pain, Chronic pain disorder, Cluster headache, Extremity pain, Fibromyalgia, primary, Headache, Headache, tension-type, Joint pain, Low back pain, Lyme disease, Migraine, and Peripheral neuropathy. Surgical History She has a past surgical history that includes section, classic; Breast surgery (Bilateral); section, classic; Bladder repair; and Other surgical history (01/12/2023). Social History She reports that she has never smoked. She has never used smokeless tobacco. She reports that she does not currently use alcohol. She reports that she does not use drugs. Family History Family History Problem Relation Name Age of Onset Hypertension Mother Amanda Diabetes Mother Amanda Hyperlipidemia Mother Amanda Anxiety disorder Mother Amanda Depression Mother Amanda Migraines Mother Amanda Hypertension Father Negro Diabetes Father Negro Hyperlipidemia Father Negro Arthritis Maternal Grandfather Dominick Cancer Maternal Grandfather [place] Diabetes Maternal Grandfather Dominick Stroke Maternal Grandfather [place] Arthritis Maternal Grandmother Raydene Cancer Maternal Grandmother Raydene Diabetes Maternal Grandmother Raydene Miscarriages / Stillbirths Maternal Grandmother Raydene Arthritis Paternal Grandfather Vasiliy Diabetes Paternal Grandfather Vasiliy Arthritis Paternal Grandmother Jane Diabetes Paternal Grandmother Jane Asthma Son Santana Hypertension Son Santana defects Daughter Kathy GI problems Daughter Kathy Cancer Father's Sister Leigh Cancer Father's Brother Gene Hypertension [place] [facility] [place] Allergies Sulfa (sulfonamide antibiotics), Metformin hcl, and Pioglitazone Medications (Not in a hospital admission) Last Recorded Vitals Visit Vitals BP 123/56 (BP Location: Right arm, Patient Position: Sitting) Pulse 73 Resp 18 LMP (LMP Unknown) SpO2 99% OB Status Implant Smoking Status Never Relevant Lab Results Lab Results Component Value Date NA 140 06/02/2023 K 3.5 06/02/2023 CL 110 (H) 06/02/2023 CO2 23 06/02/2023 BUN 18 06/02/2023 CREATININE 0.91 06/02/2023 GLUCOSE 127 (H) 06/02/2023 CALCIUM 8.2 (L) 06/02/2023 ANIONGAP 11 06/02/2023 EGFR 80.8 06/02/2023 BCR 19.8 06/02/2023 Relevant Imaging Results XR chest 2 views Narrative: XR CHEST 2 VIEWS 06/02/2023 11:55 AM Clinical: Cough and fever for 2 weeks Comparison: none Views: 2 Findings: Lung volumes are low. Heart size is normal. No acute consolidation, effusion, or pneumothorax. Impression: Impression: 1. No acute abnormality. Electronically signed: Scout Farfan. Assessment/Plan Active Problems: There are no active Hospital Problems. bilateral RFA L4-L5, L5-S1. Normal [facility] HP History Of Present I llness Delicia Serrano is a 43 y.o. female presenting with low back pain here for lumbar mbb L4-5 L5-S1 #2 Past Medical History She has a past medical history of Back pain, Chronic pain disorder, Cluster headache, Extremity pain, Fibromyalgia, primary, Headache, Headache, tension-type, Joint pain, Low back pain, Lyme disease, Migraine, and Peripheral neuropathy. Surgical History She has a past surgical history that includes section, classic; Breast surgery (Bilateral); section, classic; Bladder repair; and Other surgical history (01/12/2023). Social History She reports that she has never smoked. She has never used smokeless tobacco. She reports that she does not currently use alcohol. She reports that she does not use drugs. Family History Family History Problem Relation Name Age of Onset Hypertension Mother Amanda Diabetes Mother Amanda Hyperlipidemia Mother Amanda Anxiety disorder Mother Amanda Depression Mother Amanda Migraines Mother Amanda Hypertension Father Negro Diabetes Father Negro Hyperlipidemia Father Negro Arthritis Maternal Grandfather Dominick Cancer Maternal Grandfather Dominick Diabetes Maternal Grandfather Dominick Stroke Maternal Grandfather [place] Arthritis Maternal Grandmother Raydene Cancer Maternal Grandmother Raydene Diabetes Maternal Grandmother Raydene Miscarriages / Stillbirths Maternal Grandmother Raydene Arthritis Paternal Grandfather Vasiliy Diabetes Paternal Grandfather Vasiliy Arthritis Paternal Grandmother Jane Diabetes Paternal Grandmother Jane Asthma Son Santana Hypertension Son Santana defects Daughter Kathy GI problems Daughter Kathy Cancer Father's Sister Leigh Cancer Father's Brother Gene Hypertension [place] Mental illness [place] Allergies Sulfa (sulfonamide antibiotics), Metformin hcl, and Pioglitazone Medications (Not in a hospital admission) Airway Assessment and ASA Score Review of Systems Last Recorded Vitals Visit Vitals OB Status Implant Smoking Status Never Physical Exam Relevant Lab Results Lab Results Component Value Date NA 138 04/21/2023 K 3.4 (L) 04/21/2023 CL 105 04/21/2023 CO2 25 04/21/2023 BUN 16 04/21/2023 CREATININE 1.03 04/21/2023 GLUCOSE 108 (H) 04/21/2023 CALCIUM 9.1 04/21/2023 ANIONGAP 11 04/21/2023 EGFR 70.1 04/21/2023 BCR 15.5 04/21/2023 Relevant Imaging Results BILATERAL FACET JT INJ LUMBAR/SACRAL, 1ST LEVEL W/ IMAG - 1 of 2, BILAT FACET JT INJ LUMBAR/SACRAL, 2ND LEVEL W/ IMAG - 1 of 2 Table formatting from the original result was not included. Images from the original result were not included. Interventional Pain Management Procedure Note Staff Staff Role Carlos Perkins MD Proceduralist Keith Boston, RN Nurse Jane Ash, RN Nurse Yvette Roblero, CANDIDO Nurse Procedure BILATERAL FACET JT INJ LUMBAR/SACRAL, 1ST LEVEL W/ IMAG (MEDIAL BRANCH BLOCK) BILAT FACET JT INJ LUMBAR/SACRAL, 2ND LEVEL W/ IMAG (MEDIAL BRANCH BLOCK) Indication Lumbar spondylosis Sedation The patient was not sedated for this procedure. Complications none Estimated Blood Loss none Details of the Procedure LUMBAR MEDIAL BRANCH BLOCK BILATERAL L4-5 and L5-S1 Attending: MD BEE Physician Confirmed and marked the surgical site. CONSENT: Patient has undergone the educational process with this procedure, is aware and fully understands the risks involved: Written consent was obtained. The patient agreed to proceed. PROCEDURE IN DETAIL: The patient was placed in a prone position and appropriately padded and monitored. The back was prepped and draped with chlorohexadine x 2 in usual sterile fashion. The base of the corresponding superior articulating process was identified fluoroscopically and 2ml of 1% lidocaine was then injected for local anesthesia. A 25ga 3.5 inch spinal needle was then advanced under incremental fluoroscopic guidance until contact with the aforementioned bony landmark at Right and left L4/5 and L5/S1 facet joints was identified and confirmed with saved fluoroscopic imaging. If indicated above the target for the dorsal ramus of L5 was ala of sacrum. At each level 1ml of 0.25% bupivacaine + 1mg of dexamethasone was then injected after negative aspiration for blood and CSF. The needles were then styletted and removed. Plan/Recommendation RFA for longer term pain relief Pre-Op Pain Assessment Pain Assessment Pain Score: 7 Pain Type: Acute pain Pain Location: Back Pain Orientation: Left, Right Pain Radiating Towards: bilat lower back Pain Descriptors: Aching, Stabbing, Radiating Pain Frequency: Constant/continuous Pain Onset: Gradual Clinical Progression: Gradually worsening Patient's Stated Pain Goal: 3 Pain Interventions: Rest, Home medication, Warm pack Post-Op Pain Assessment Pain Assessment Pain Score: 0 - No pain Pain Type: Acute pain (more content not included)... [facility] NURSNOTEon 05-19-2023 NURSNOTE Interventional Pain Management Nursing Note / Nurse Post-Call Note Narrative Pt stated she received 80% relief for 6hrs post MBB #2 L4/5,L5/S1. Will schedule RFA. [facility] 36on 05-12-2023 36 Last visit 03/23/23 Upcoming visit 06/23/23 Last cbc/cmp 04/21/23 [facility] Refillon 05-12-2023 Refill [id number] Delicia Serrano 1980 Date Provider Department Center 05/12/2023 SYLVIA BRAR [facility] Family History Problem Relation Age of Onset Hypertension Mother Diabetes Mother Hyperlipidemia Mother Anxiety disorder Mother Depression Mother Migraines Mother Hypertension Father Diabetes Father Hyperlipidemia Father Arthritis Maternal Grandfather Cancer Maternal Grandfather Diabetes Maternal Grandfather Stroke Maternal Grandfather Arthritis Maternal Grandmother Cancer Maternal Grandmother Diabetes Maternal Grandmother Miscarriages / Stillbirths Maternal Grandmother Arthritis Paternal Grandfather Diabetes Paternal Grandfather Arthritis Paternal Grandmother Diabetes Paternal Grandmother Asthma Son Hypertension Son defects Daughter GI problems Daughter Cancer Father's Sister Cancer Father's Brother Hypertension Brother Mental illness Brother Family Status - Relation Status Age at Mother Father Maternal Grandfather Maternal Grandmother Paternal Grandfather Paternal Grandmother Son Daughter Father's Sister Father's Brother Brother Reason for Visit and Comments: Med Refill [[id number]] [facility] Prep for Procedureon 024 Prep for Procedure [id number] Delicia Serrano 1980 Date Provider Department Center 05/11/2023 KEITH VARELA MP PROC Medical [facility]avi Family History Problem Relation Age of Onset Hypertension Mother Diabetes Mother Hyperlipidemia Mother Anxiety disorder Mother Depression Mother Migraines Mother Hypertension Father Diabetes Father Hyperlipidemia Father Arthritis Maternal Grandfather Cancer Maternal Grandfather Diabetes Maternal Grandfather Stroke Maternal Grandfather Arthritis Maternal Grandmother Cancer Maternal Grandmother Diabetes Maternal Grandmother Miscarriages / Stillbirths Maternal Grandmother Arthritis Paternal Grandfather Diabetes Paternal Grandfather Arthritis Paternal Grandmother Diabetes Paternal Grandmother Asthma Son Hypertension Son defects Daughter GI problems Daughter Cancer Father's Sister Cancer Father's Brother Hypertension Brother Mental illness Brother Family Status - Relation Status Age at Mother Father Maternal Grandfather Maternal Grandmother Paternal Grandfather Paternal Grandmother Son Daughter Father's Sister Father's Brother Brother Normal [facility] CBC WITH AUTO DIFFERENTIALon 04-21-2023 Basophils (Bld) [#/Vol] 0.05 10*3/uL Normal 0.00-0.20 [facility] Comment on above: Performed By: #### L [id number] ####[facility] ([facility])[address] [place] [address] Basophils/100 WBC (Bld) 0.5 % Normal 0.0-1.0 [facility] Comment on above: Performed By: #### L [id number] ####[facility] ([facility])[address] [place] [address] Eosinophils (Bld) [#/Vol] 0.16 10*3/uL Normal 0.00-0.50 [facility] Comment on above: Performed By: #### L [id number] ####[facility] ([facility])[address] [place] [address] Eosinophils/100 WBC (Bld) 1.7 % Normal 0.0-6.0 [facility] Comment on above: Performed By: #### L [id number] ####[facility] ([facility])[address] [place] [address] Erythrocyte distribution width (RBC) [Ratio] 15.5 % High 11.5-15.0 [facility] Comment on above: Performed By: #### L [id number] ####[facility] ([facility])[address] [place] [address] ERYTHROCYTE MEAN CORPUSCULAR HEMOGLOBIN CONCENTRATION (G/DL) BY AUTOMATED 32.0 g/dL Normal 32.0-35.0 [facility] Comment on above: Performed By: #### L [id number] ####[facility] ([facility])[address] [place] [address] Hematocrit (Bld) [Volume fraction] 41.2 % Normal 36.0-48.0 [facility] Comment on above: Performed By: #### L [id number] ####[facility] ([facility])[address] [place] [address] Hemoglobin (Bld) [Mass/Vol] 13.2 g/dL Normal 12.0-15.0 [facility] Comment on above: Performed By: #### L [id number] ####[facility] ([facility])[address] [place] [address] Immature granulocytes (Bld) [#/Vol] 0.04 10*3/uL Normal 0.00-0.20 [facility] Comment on above: Performed By: #### L [id number] ####[facility] ([facility])[address] [place] [address] Immature granulocytes/100 WBC (Bld) 0.4 % Normal 0.0-1.0 [facility] Comment on above: Performed By: #### L [id number] ####[facility] ([facility])[address] [place] [address] Lymphocytes (Bld) [#/Vol] 2.02 10*3/uL Normal 1.20-4.00 [facility] Comment on above: Performed By: #### L [id number] ####[facility] ([facility])[address] [place] [address] Lymphocytes/100 WBC (Bld) 22.1 % Normal 20.0-45.0 [facility] Comment on above: Performed By: #### L [id number] ####[facility] ([facility])[address] [place] [address] MCH (RBC) [Entitic mass] 30.0 pg Normal 27.0-33.0 [facility] Comment on above: Performed By: #### L [id number] ####[facility] ([facility] [place] [address] MCV (RBC) [Entitic vol] 93.6 fL Normal 82.0-98.0 [facility] Comment on above: Performed By: #### L [id number] ####[facility] ([facility])[address] [place] [address] Monocytes (Bld) [#/Vol] 0.36 10*3/uL Normal 0.10-1.00 [facility] Comment on above: Performed By: #### L [id number] ####[facility] ([facility])[address] [place] [address] Monocytes/100 WBC (Bld) 3.9 % Low 5.0-12.0 [facility] Comment on above: Performed By: #### L [id number] ####[facility] ([facility])[address] [place] [address] Neutrophils (Bld) [#/Vol] 6.52 10*3/uL Normal 1.60-7.60 [facility] Comment on above: Performed By: #### L [id number] ####[facility] ([facility])[address] [place] [address] Neutrophils/100 WBC (Bld) 71.4 % Normal 40.0-72.0 [facility] Comment on above: Performed By: #### L [id number] ####[facility] ([facility])[address] [place] [address] NRBC (PER 100 WBCS) BY AUTOMATED COUNT 0.0 % Normal 0 [facility] Comment on above: Performed By: #### L [id number] ####[facility] ([facility])[address] [place] [address] PLATELETS (10*3/UL) IN BLOOD AUTOMATED COUNT 339 10*3/uL Normal 150-400 [facility] Comment on above: Performed By: #### L [id number] ####[facility] ([facility])[address] [place] [address] RBC (Bld) [#/Vol] 4.40 10*6/uL Normal 3.80-5.00 [facility] Comment on above: Performed By: #### L [id number] ####[facility] ([facility])[address] [place] [address] WBC (Bld) [#/Vol] 9.15 10*3/uL Normal 4.00-10.60 [facility] Comment on above: Performed By: #### L [id number] ####[facility] ([facility])[address] [place] [address] COMPREHENSIVE METABOLIC PANE Raimundo 04-21-2023 Albumin [Mass/Vol] 4.6 g/dL Normal 3.5-5.7 [facility] Comment on above: Performed By: #### L [id number] #### [facility] ([facility]) [address] [place] [address] ALP [Catalytic activity/Vol] 73 U/L Normal 34-104 [facility] Comment on above: Performed By: #### L [id number] #### [facility] ([facility]) [address] [place] [address] ALT [Catalytic activity/Vol] 20 U/L Normal 7-52 [facility] Comment on above: Performed By: #### L [id number] #### [facility] ([facility]) [address] [place] [address] Anion gap [Moles/Vol] 11 mmol/L Normal 7-20 [facility] Comment on above: Performed By: #### L [id number] #### [facility] ([facility]) [address] [place] [address] AST [Catalytic activity/Vol] 17 U/L Normal 13-39 [facility] Comment on above: Performed By: #### L [id number] #### [facility] ([facility]) [address] [place] [address] Bilirubin [Mass/Vol] 0.3 mg/dL Normal 0.3-1.0 [facility] Comment on above: Performed By: #### L [id number] #### [facility] ([facility]) [address] [place] [address] Calcium [Mass/Vol] 9.1 mg/dL Normal 8.6-10.3 [facility] Comment on above: Performed By: #### L [id number] #### [facility] ([facility]) [address] [place] [address] Chloride [Moles/Vol] 105 mmol/L Normal 98-107 [facility] Comment on above: Performed By: #### L [id number] #### [facility] ([facility]) [address] [place] [address] CO2 [Moles/Vol] 25 mmol/L Normal 21-31 [facility] Comment on above: Performed By: #### L [id number] #### [facility] ([facility]) [address] [place] [address] Creatinine [Mass/Vol] 1.03 mg/dL Normal 0.60-1.20 [facility] Comment on above: Performed By: #### L [id number] #### [facility] ([facility]) [address] [place] [address] GLOMERULAR FILTRATION RATE ML/MIN/1.73 SQ M.PREDICTED 70.1 mL/min/1.73m*2 Normal >60.0 [facility] Comment on above: Result Comment: The [facility]???s estimated glomerular filtration rate (eGFR) will no longer include consideration of race in its calculation. The National Kidney Foundation???s eGFR Task Force developed new recommendations for the estimation of the glomerular filtration rate in the [place] They recommend immediate implementation of the new equation refit without the race variable in all laboratories because the calculation does not include race. In addition to not including race in the calculation and reporting, it included diversity in its development, and has acceptable performance characteristics and potential consequences that do not disproportionately affect any one group of individuals. Performed By: #### L [id number] #### [facility] ([facility]) [address] [place] [address] Glucose [Mass/Vol] 108 mg/dL High 70-100 [facility] Comment on above: Performed By: #### L [id number] #### [facility] ([facility]) [address] [place] [address] Potassium [Moles/Vol] 3.4 mmol/L Low 3.5-5.1 [facility] Comment on above: Performed By: #### L [id number] #### [facility] ([facility]) [address] [place] [address] Protein [Mass/Vol] 7.1 g/dL Normal 6.0-8.3 [facility] Comment on above: Performed By: #### L [id number] #### [facility] ([facility]) [address] [place] [address] Sodium [Moles/Vol] 138 mmol/L Normal 136-145 [facility] Comment on above: Performed By: #### L [id number] #### [facility] ([facility]) [address] [place] [address] Urea nitrogen [Mass/Vol] 16 mg/dL Normal 7-25 [facility] Comment on above: Performed By: #### L [id number] #### [facility] ([facility]) [address] [place] [address] UREA NITROGEN/CREATININE (MASS RATIO) IN SER/PLAS 15.5 Normal [facility] Comment on above: Performed By: #### L [id number] #### [facility] ([facility]) [address] [place] [address] HPon 04-21-2023 HP H&P reviewed. The pa ana maria was examined and there are no changes to the H&P. Patient continues to have back pain in her lumbar Normal [facility] Labon 04-21-2023 Lab [id number] Delicia Serrano 1980 F Date Provider Department Center 04/21/2023 2244-[facility] MP LAB RESOURCE MP DRAW Medical Pavi Family History Problem Relation Age of Onset Hypertension Mother Diabetes Mother Hyperlipidemia Mother Anxiety disorder Mother Depression Mother Migraines Mother Hypertension Father Diabetes Father Hyperlipidemia Father Arthritis Maternal Grandfather Cancer Maternal Grandfather Diabetes Maternal Grandfather Stroke Maternal Grandfather Arthritis Maternal Grandmother Cancer Maternal Grandmother Diabetes Maternal Grandmother Miscarriages / Stillbirths Maternal Grandmother Arthritis Paternal Grandfather Diabetes Paternal Grandfather Arthritis Paternal Grandmother Diabetes Paternal Grandmother Asthma Son Hypertension Son defects Daughter GI problems Daughter Cancer Father's Sister Cancer Father's Brother Hypertension Brother Mental illness Brother Family Status - Relation Status Age at Mother Father Maternal Grandfather Maternal Grandmother Paternal Grandfather Paternal Grandmother Son Daughter Father's Sister Father's Brother Brother [facility] NURSNOTEon 04-21-2023 NURSNOTE Interventional Pain Management Nursing Note / Nurse Post-Call Note MBB#1 completed 04/21 Narrative 04/22/23 1639 Physical Condition (Summarize discussion in comments) Have you had trouble breathing? No Have you had a sore throat? No Have you vomited or felt nauseated? No Pain Score 7 What relieves the pain? Rest Follow Up (Summarize discussion in comments) Have you done any of the following since your surgery? None Patient given contact information for surgery department and physician Yes Diagnostic Block Follow up Questions Pre-procedure Pain Level = _7 Post procedure Pain Level = _0 Hr 1: 0 Hr 2: 0 Hr 3: 0 Hr 4: 0 Hr 5: 1 Hr 6: 2 Hr 7: 3 Hr 8: 5 Result: Patient reports 100% relief for 4 hours. & functionality 80% x 4 hours CURRENT PAIN: 7/10 Denies complications, side effects, problems, or questions about discharge instruction. Plan for MBB#2 on May 16 [facility] POCT GLUCOSE METER UNSOLICIT ED RESULTSon 04-21-2023 Glucose [Mass/Vol] 112 mg/dL High 70-105 [facility] Comment on above: Order Comment: Waive d Testing in the ED is performed under the ED CLIA certificate #[id number]. Result Comment: mweb er Performed By: #### L [id number] ####[facility] ([facility])[address] [place] [address] Prep for Procedureon 024 Prep for Procedure [id number] Delicia Serrano E 1980 F Date Provider Department Center 04/20/2023 YVETTE CHOE MP [facility] Medical Pavi Family History Problem Relation Age of Onset Hypertension Mother Diabetes Mother Hyperlipidemia Mother Anxiety disorder Mother Depression Mother Migraines Mother Hypertension Father Diabetes Father Hyperlipidemia Father Arthritis Maternal Grandfather Cancer Maternal Grandfather Diabetes Maternal Grandfather Stroke Maternal Grandfather Arthritis Maternal Grandmother Cancer Maternal Grandmother Diabetes Maternal Grandmother Miscarriages / Stillbirths Maternal Grandmother Arthritis Paternal Grandfather Diabetes Paternal Grandfather Arthritis Paternal Grandmother Diabetes Paternal Grandmother Asthma Son Hypertension Son defects Daughter GI problems Daughter Cancer Father's Sister Cancer Father's Brother Hypertension Brother Mental illness Brother Family Status - Relation Status Age at Mother Father Maternal Grandfather Maternal Grandmother Paternal Grandfather Paternal Grandmother Son Daughter Father's Sister Father's Brother Brother Normal [facility] Prep for Procedureon 024 Prep for Procedure [id number] Delicia Serrano 1980 F Date Provider Department Center 04/15/2023 3905-SHAMIR CARLISLE MP [facility] [employer] Pavi Family History Problem Relation Age of Onset Hypertension Mother Diabetes Mother Hyperlipidemia Mother Anxiety disorder Mother Depression Mother Migraines Mother Hypertension Father Diabetes Father Hyperlipidemia Father Arthritis Maternal Grandfather Cancer Maternal Grandfather Diabetes Maternal Grandfather Stroke Maternal Grandfather Arthritis Maternal Grandmother Cancer Maternal Grandmother Diabetes Maternal Grandmother Miscarriages / Stillbirths Maternal Grandmother Arthritis Paternal Grandfather Diabetes Paternal Grandfather Arthritis Paternal Grandmother Diabetes Paternal Grandmother Asthma Son Hypertension Son defects Daughter GI problems Daughter Cancer Father's Sister Cancer Father's Brother Hypertension Brother Mental illness Brother Family Status - Relation Status Age at Mother Father Maternal Grandfather Maternal Grandmother Paternal Grandfather Paternal Grandmother Son Daughter Father's Sister Father's Brother Brother Normal [facility] Aerobic Cultureon 03-26-2023 Aerobic Culture CULTURE ADD ON PER D Maykel DILLARD Tube Number for CSF Microbiology: 2 No Growth 2 Days CULTURE ADD ON PER DR. DILLARD Tube Number for CSF Microbiology: 2 No Anaerobes Isolated 3 Days CULTURE ADD ON PER DR. DILLARD Tube Number for CSF Microbiology: 2 Gram Stain Result No Bacteria Seen No White Blood Cells Seen PERFORMED BY: [place] [address] PATHOLOGIST FRONT END DEVELOPER DESIGNER JUNIOR GREEN M.D. [facility] Comment on above: Performed By: #### C SF GLU, CSFCCDIFF, CSF TP #2, CSFCCDIFF #2, CSF TP, CSF GLU #2 #### [address] Cell Count Differential,CSFo n 03-26-2023 Appearance, CSF Clear Normal Clear [facility] Comment on above: Order Comment: Comme nt TUBE 1 Performed By: #### C SF GLU, CSFCCDIFF, CSF TP #2, CSFCCDIFF #2, CSF TP, CSF GLU #2 #### [address] Color, CSF Colorless Normal Colorless [facility] Comment on above: Order Comment: Comme nt TUBE 1 Performed By: #### C SF GLU, CSFCCDIFF, CSF TP #2, CSFCCDIFF #2, CSF TP, CSF GLU #2 #### [address] CSF Supernatant Color Colorless Normal Colorless [facility] Comment on above: Order Comment: Comme nt TUBE 1 Performed By: #### C SF GLU, CSFCCDIFF, CSF TP #2, CSFCCDIFF #2, CSF TP, CSF GLU #2 #### [facility] [address] [place] [address] [place] CSF Volume, Total 12.5 mL [facility] Comment on above: Order Comment: Comme nt TUBE 1 Performed By: #### C SF GLU, CSFCCDIFF, CSF TP #2, CSFCCDIFF #2, CSF TP, CSF GLU #2 #### [facility] [address] [place] [address] [place] Lymphocytes, CSF 56 % Normal 40-80 [facility] Comment on above: Order Comment: Comme nt TUBE 1 Performed By: #### C SF GLU, CSFCCDIFF, CSF TP #2, CSFCCDIFF #2, CSF TP, CSF GLU #2 #### [address] Monocytes, CSF 43 % Normal 15-45 [facility] Comment on above: Order Comment: Comme nt TUBE 1 Performed By: #### C SF GLU, CSFCCDIFF, CSF TP #2, CSFCCDIFF #2, CSF TP, CSF GLU #2 #### [address] Neutrophils, CSF 1 % Normal 0-6 [facility] Comment on above: Order Comment: Comme nt TUBE 1 Performed By: #### C SF GLU, CSFCCDIFF, CSF TP #2, CSFCCDIFF #2, CSF TP, CSF GLU #2 #### [address] RBC, CSF 11 /uL Normal [facility] Comment on above: Order Comment: Comme nt TUBE 1 Result Comment: The reference interval and other method performance specifications have not been established for this body fluid. The test result must be integrated into the clinical context for interpretation. Performed By: #### C SF GLU, CSFCCDIFF, CSF TP #2, CSFCCDIFF #2, CSF TP, CSF GLU #2 #### [address] TNC, CSF 2 /uL Normal 0-5 [facility] Comment on above: Order Comment: Comme nt TUBE 1 Performed By: #### C SF GLU, CSFCCDIFF, CSF TP #2, CSFCCDIFF #2, CSF TP, CSF GLU #2 #### [address] Total Count, CSF 100 Normal [facility] Comment on above: Order Comment: Comme nt TUBE 1 Performed By: #### C SF GLU, CSFCCDIFF, CSF TP #2, CSFCCDIFF #2, CSF TP, CSF GLU #2 #### [facility] [address] [place] [address] [place] Tube Number Tested, CSF Tube Number: 1 Normal [facility] Comment on above: Order Comment: Comme nt TUBE 1 Result Comment: PERF ORMED BY: [place] [address] PATHOLOGIST FRONT END DEVELOPER DESIGNER JUNIOR GREEN M.D. Performed By: #### C SF GLU, CSFCCDIFF, CSF TP #2, CSFCCDIFF #2, CSF TP, CSF GLU #2 #### [place] [address] [place] Cell Count Differential,CSF #2on 03-26-2023 Appearance, CSF Clear Normal Clear [facility] Comment on above: Order Comment: Comme nt TUBE 3 Performed By: #### C SF GLU, CSFCCDIFF, CSF TP #2, CSFCCDIFF #2, CSF TP, CSF GLU #2 #### [facility] [address] [place] [address] [place] Color, CSF Colorless Normal Colorless [facility] Comment on above: Order Comment: Comme nt TUBE 3 Performed By: #### C SF GLU, CSFCCDIFF, CSF TP #2, CSFCCDIFF #2, CSF TP, CSF GLU #2 #### [facility] [address] [place] [address] CSF Supernatant Color Colorless Normal Colorless [facility] Comment on above: Order Comment: Comme nt TUBE 3 Performed By: #### C SF GLU, CSFCCDIFF, CSF TP #2, CSFCCDIFF #2, CSF TP, CSF GLU #2 #### [facility] [address] [place] [address] [place] CSF Volume, Total 12.5 mL [facility] Comment on above: Order Comment: Comme nt TUBE 3 Performed By: #### C SF GLU, CSFCCDIFF, CSF TP #2, CSFCCDIFF #2, CSF TP, CSF GLU #2 #### [facility] [address] [place] [address] [place] Lymphocytes, CSF 33 Normal [facility] Comment on above: Order Comment: Comme nt TUBE 3 Result Comment: The reference interval and other method performance specifications have not been established for this body fluid. The test result must be integrated into the clinical context for interpretation. Performed By: #### C SF GLU, CSFCCDIFF, CSF TP #2, CSFCCDIFF #2, CSF TP, CSF GLU #2 #### [facility] [address] [place] [address] Monocytes, CSF 10 Normal [facility] Comment on above: Order Comment: Comme nt TUBE 3 Result Comment: The reference interval and other method performance specifications have not been established for this body fluid. The test result must be integrated into the clinical context for interpretation. Performed By: #### C SF GLU, CSFCCDIFF, CSF TP #2, CSFCCDIFF #2, CSF TP, CSF GLU #2 #### [facility] [address] [place] [address] Neutrophils, CSF 0 Normal [facility] Comment on above: Order Comment: Comme nt TUBE 3 Result Comment: The reference interval and other method performance specifications have not been established for this body fluid. The test result must be integrated into the clinical context for interpretation. Performed By: #### C SF GLU, CSFCCDIFF, CSF TP #2, CSFCCDIFF #2, CSF TP, CSF GLU #2 #### [facility] [address] [place] [address] RBC, CSF 0 /uL Normal [facility] Comment on above: Order Comment: Comme nt TUBE 3 Result Comment: The reference interval and other method performance specifications have not been established for this body fluid. The test result must be integrated into the clinical context for interpretation. Performed By: #### C SF GLU, CSFCCDIFF, CSF TP #2, CSFCCDIFF #2, CSF TP, CSF GLU #2 #### [facility] [address] [place] [address] TNC, CSF 3 /uL Normal 0-5 [facility] Comment on above: Order Comment: Comme nt TUBE 3 Performed By: #### C SF GLU, CSFCCDIFF, CSF TP #2, CSFCCDIFF #2, CSF TP, CSF GLU #2 #### [place] [address] [place] Tube Number Tested, CSF Tube Number: 3 Normal [facility] Comment on above: Order Comment: Comme nt TUBE 3 Result Comment: PERF ORMED BY: [place] [address] PATHOLOGIST FRONT END DEVELOPER DESIGNER JUNIOR GREEN M.D. Performed By: #### C SF GLU, CSFCCDIFF, CSF TP #2, CSFCCDIFF #2, CSF TP, CSF GLU #2 #### [place] [address] [place] Glucose, CSF #2on 03-26-2023 Glucose, CSF #2 82 mg/dL High 40-70 [facility] Comment on above: Order Comment: Comme nt TUBE 3 Performed By: #### C SF GLU, CSFCCDIFF, CSF TP #2, CSFCCDIFF #2, CSF TP, CSF GLU #2 #### [place] [address] [place] Glucose, Spinal Fluidon 03-16 Glucose, Spinal Fluid 80 mg/dL High 40-70 [facility] Comment on above: Order Comment: Comme nt TUBE 1 Performed By: #### C SF GLU, CSFCCDIFF, CSF TP #2, CSFCCDIFF #2, CSF TP, CSF GLU #2 #### [facility] [address] [place] [address] [place] Gram Stainon 03-26-2023 Microscopic observation Gram stain Nom (Unsp spec) CULTURE ADD ON PER DR. DILLARD Tube Number for CSF Microbiology: 2 Gram Stain Result No Bacteria Seen No White Blood Cells Seen PERFORMED BY: [place] [address] PATHOLOGIST FRONT END DEVELOPER DESIGNER JUNIOR GREEN M.D. [facility] Comment on above: Performed By: #### C SF GLU, CSFCCDIFF, CSF TP #2, CSFCCDIFF #2, CSF TP, CSF GLU #2 #### [address] IR guided lumbar puncture LP on 03-26-2023 IR guided lumbar puncture LP [facility] [place] [address] [place] [address] Interventional Radiology Rpt Signed Patient: Delicia Serrano MR#: [id number] : 1980 Acct:[id number] Age/Sex: 42 / F ADM Date: 03/26/23 Loc: XD Room: Type: [facility] Attending Dr: Disha Dillard PA-C Copies to: Disha Dillard PA-C Ordering Provider: Disha Dillard PA-C Date of Service: 03/26/23 IR/IR guided lumbar puncture LP: PSEUDOTUMOR IR guided lumbar puncture LP 03/26/2023 9:19 AM SIGNS AND SYMPTOMS: Headaches, numbness in right arm and hand INFORMED CONSENT: Reason for procedure was discussed with the patient. The procedure expectations risks benefits options and alternatives were discussed. All the questions were answered. The patient understood the results cannot be guaranteed. The procedure is indicated and risks were acceptable. Consent was obtained. PROCEDURE: A fluoroscopically guided lumbar puncture was performed at the L3-4 level on the right via a right sublaminar approach. The patient was prepped and draped in a sterile manner. 5 mL of lidocaine 1% without epinephrine were used for local anesthesia. A 20-gauge spinal needle was introduced into the subarachnoid space on the right atL3-L4 via a right sublaminar approach. With the patient in the left lateral decubitus position the opening pressure was measured at 17.5 cm CSF. Approximately 12 mL of clear fluid was removed into 4 tubes. The needle was removed and hemostasis was obtained using manual pressure. Cumulative Air Kerma in mGy: 7.38 mGy The patient tolerated the procedure well. No immediate complications were detected. IR/IR guided lumbar puncture LP IMPRESSION: Successful fluoroscopically guided lumbar puncture with opening pressure of 17.5 cm CSF documented. Impression dictated by: Felix Lawson M.D.03/26/2023 11:23 AM Dictation Location: [place] [address] Transcribed By: [facility] 03/26/23 112 Dictated By: Felix Lawson II, MD 03/26/23 1121 Signed By: 03/26/23 1123 Normal [facility] Raimundo 03-26-2023 L ------ Specimen: [id number] Received: 03/26/23 Status: JORGE Arreola Num: [id number] Spec Type: Cytology Subm Dr: JUNIOR STAFF Tissues: A CSF (CSF) Procedures: Cyto Prepstain, DIFF QROHIT MCDERMOTT Age/ Patient Sex Location Account Attending Physician Delicia Serrano 42/F XD [id number] Disha Dillard PA-C SPEC NUM: [id number] RECD: 03/26/23 STATUS: JORGE ARREOLA NUM: [id number] KIMBERLY: 03/26/[address]: JUNIOR STAFF ENTERED: 03/26/[address] [facility] [address]: SPEC TYPE: Cytology DEPT: CECILLE ENTERED BY: [id number] RECV BY: [id number] ORDERED: Cyto Prepstain, DIFF QWIK, PAPSTN ORDERED: Cyto Prepstain, DIFF QWIK, PAPSTN Pathological Diagnosis CSF, cytology: - Negative for malignant cells - Only occasional red blood cells, and at least rare lymphocytes including 1 reactive lymphocyte, and rare other degenerated mononuclear cells are noted Clinical Information Chronic migraines-increased Gross Description Received is 1 ml colorless clear unfixed fluid said to have been obtained as CSF. Cyto spin slides are stained with Papanicolaou and Diff-Quik stains.(CC/nh) CPT Codes 12263 Specimen: [id number] Received: 03/26/23 Status: JORGE Arreola Num: [id number] Spec Type: Cytology [facility] Dr: JUNIOR STAFF Tissues: A CSF (CSF) Procedures: Cyto Prepstain, DIFF QWIK, PAPSTN Patient: Delicia Serrano [id number] (Continued) Signed (signature on file) Gigi-Ayad Schulz MD 03/27/23 1324 Normal [facility] MYELIN BASIC PROTEIN, CSFon 03-26-2023 MYELIN BASIC PROTEIN, CSF Normal [facility] Comment on above: Order Comment: Comme nt TUBE 3 Result Comment: See report. Scanned copy available in EMR. PERFORMED BY: [place] [address] PATHOLOGIST FRONT END DEVELOPER DESIGNER JUNIOR GREEN M.D. Performed By: #### C SF GLU, CSFCCDIFF, CSF TP #2, CSFCCDIFF #2, CSF TP, CSF GLU #2 #### [facility] [address] [place] [address] [place] Total Protein, CSF #2on 03-16 Total Protein, CSF #2 63 mg/dL High 15-45 [facility] Comment on above: Order Comment: Comme nt TUBE 3 Result Comment: PERF ORMED BY: [place] [address] PATHOLOGIST FRONT END DEVELOPER DESIGNER JUNIOR GREEN M.D. Performed By: #### C SF GLU, CSFCCDIFF, CSF TP #2, CSFCCDIFF #2, CSF TP, CSF GLU #2 #### [facility] [address] [place] [address] [place] Total Protein, Spinal Fluido n 03-26-2023 Total Protein, Spinal Fluid 71 mg/dL High 15-45 [facility] Comment on above: Order Comment: Comme nt TUBE 1 Result Comment: PERF ORMED BY: [address] [place] [address] PATHOLOGIST FRONT END DEVELOPER DESIGNER JUNIOR GREEN M.D. Performed By: #### C SF GLU, CSFCCDIFF, CSF TP #2, CSFCCDIFF #2, CSF TP, CSF GLU #2 #### [facility] [address] [id number] [facility] Follow-Upon 03-24-2023 Follow-Up [id number] Delicia Serrano 1980 F Date Provider Department Center 03/24/2023 [facility]E [facility] Family History Problem Relation Age of Onset Hypertension Mother Diabetes Mother Hyperlipidemia Mother Anxiety disorder Mother Depression Mother Migraines Mother Hypertension Father Diabetes Father Hyperlipidemia Father Arthritis Maternal Grandfather Cancer Maternal Grandfather Diabetes Maternal Grandfather Stroke Maternal Grandfather Arthritis Maternal Grandmother Cancer Maternal Grandmother Diabetes Maternal Grandmother Miscarriages / Stillbirths Maternal Grandmother Arthritis Paternal Grandfather Diabetes Paternal Grandfather Arthritis Paternal Grandmother Diabetes Paternal Grandmother Asthma Son Hypertension Son defects Daughter GI problems Daughter Cancer Father's Sister Cancer Father's Brother Hypertension Brother Mental illness Brother Family Status - Relation Status Age at Mother Father Maternal Grandfather Maternal Grandmother Paternal Grandfather Paternal Grandmother Son Daughter Father's Sister Father's Brother Brother Level of Service:79182 [place] OFFICE/OUTPATIENT ESTABLISHED MOD MDM 30 MIN () Reason for Visit and Comments: Follow-up [687429] - C7-T1 INTERLAMINAR EPIDURAL STEROID INJECTION 60% [facility] relief [facility] [place] [address] Date: 03/24/23 Referral Source: No ref. provider found CC: Chief Complaint Patient presents with Follow-up C7-T1 INTERLAMINAR EPIDURAL STEROID INJECTION 60% pain relief SUBJECTIVE: Delicia Serrano is a 42 y.o. female fibromyalgia and cervical pain here for follow up after [facility] C7-T1. She reports 60% pain relief following her epidural. States she occasionally has paresthesias but do not persist. Pain is minimal and is more functional in daily activities. She now complains of arthritic pain in her lower back, exacerbated with bending, twisting and extension. States it is primarily over the belt line, but has also noticed radiation towards her ribs. Denies radicular pain into her legs. Pain is bothersome limiting daily chores. SHEKHAR : 25 Previous Procedure:none Physical Therapy: physical therapy for vertigo September 2019 Previous Pain Provider: none PDMP: Overdose Risk Score 140 #Prescribers 4 #Pharmacies 3 Pain Assessment Pain Assessment: 0-10 Pain Score: 6 Pain Type: Chronic pain Pain Location: Neck Pain Orientation: Right, Left Pain Radiating Towards: Radiates down right arm to hand Pain Descriptors: Aching, Tingling, Burning, Radiating Pain Frequency: Constant/continuous Pain Onset: Ongoing Clinical Progression: Gradually improving Aggravating Factors: Other (Comment) (weather, driving) Pain Interventions: Medication (See MAR), Home medication, Cold applied, Heat applied Past Medical History: Diagnosis Date Back pain Chronic pain disorder Cluster headache Extremity pain Fibromyalgia, primary Headache Headache, tension-type Joint pain Low back pain Lyme disease Migraine Peripheral neuropathy Patient Active Problem List Diagnosis Pain in both feet Pain in both hands Myalgia Neck pain, chronic Fibromyalgia Chronic midline low back pain with sciatica Current use of steroid medication Pseudotumor cerebri Radiculopathy, cervical region Hyperglycemia Neuropathy state, incidental Lumbar radiculopathy Seronegative arthritis 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 Past Surgical History: Procedure Laterality Date BLADDER REPAIR BREAST SURGERY Bilateral SECTION, CLASSIC SECTION, CLASSIC revision OTHER SURGICAL HISTORY 01/12/2023 C7-T1 INTERLAMINAR EPIDURAL STEROID INJECTION Allergies Allergen Reactions Sulfa (Sulfonamide Antibiotics) Rash and Shortness of breath Other reaction(s): Unknown Other Reaction(s): Anaphylaxis-Bakers Yeast Metformin Hcl Other Reaction(s): GI Symptoms Pioglitazone Other reaction(s): stomach upset Family History Problem Relation Name Age of Onset Hypertension Mother Amanda Diabetes Mother Amanda Hyperlipidemia Mother Amanda Anxiety disorder Mother Amanda Depression Mother Amanda Migraines Mother Amanda Hypertension Father Negro Diabetes Father Negro Hyperlipidemia Father Negro Arthritis Maternal Grandfather [place] Cancer Maternal Grandfather [place] Diabetes Maternal Grandfather Dominick Stroke Maternal Grandfather Dominick Arthritis Maternal Grandmother Raydene Cancer Maternal Grandmother Raydene Diabetes Maternal Grandmother Raydene Miscarriages / Stillbirths Maternal Grandmother Raydene Arthritis Paternal Grandfather Vasiliy Diabetes Paternal Grandfather Vasiliy Arthritis Paternal Grandmother Jane Diabetes Paternal Grandmother Jane Asthma Son Santana Hypertension Son Santana defects Daughter Kathy GI problems Daughter Kathy Cancer Father's Sister Leigh Cancer Father's Brother Gene Hypertension [place] Mental illness [place] Review of Systems Constitutional: Negative for fever. Cardiovascular: Negative for chest pain. Gastrointestinal: Negative for abdominal pain. Genitourinary: Negative for dysuria and pelvic pain. Musculoskeletal: Positive for back pain. Neurological: Positive for weakness and headaches. Negative for numbness. Objective BP 132/82 (BP Location: Left arm, Patient Position: Sitting, BP Cuff Size: Adult) Pulse 76 General appearance: Well appearing, in no acute distress, alert. Lungs: Breathing unlabored, no respiratory distress Psych: Mood and affect appropriate. Alert and oriented Skin: Skin color, texture, turgor normal, no rashes or lesions. HEENT: normocephalic, atraumatic, sclera non-icteric. Extremities: No rashes, deformities, skin discoloration. There is non-pitting bilateral upper extremity Upper Extremity Musculoskeletal: No atrophy or tone abnormalities are noted. Gait: normal Assist device: none Alignment spine: normal Tenderness: minimal tenderness over right cervical paraspinals and lumbar facets Range of motion cervical spine: Flexion: normal >60 degrees Extension: normal >60 degrees Left axial rotation: normal >80 degrees Right axial rotation: normal > 80 degrees Pain with (more content not included)... Normal [facility] 37on 03-23-2023 37 - continue current d ose of methotrexate, increase folic acid to twice a day - increase mobic to twice daily if needed for sever pain - do labs ( cbc and CMP ) sometime before your next visit Normal [facility] Follow-Upon 03-23-2023 Follow-Up [id number] Delicia Serrano 1980 F Date Provider Department Center 03/23/2023 Sabrina4-CHRISTIANNE [facility] Family History Problem Relation Age of Onset Hypertension Mother Diabetes Mother Hyperlipidemia Mother Anxiety disorder Mother Depression Mother Migraines Mother Hypertension Father Diabetes Father Hyperlipidemia Father Arthritis Maternal Grandfather Cancer Maternal Grandfather Diabetes Maternal Grandfather Stroke Maternal Grandfather Arthritis Maternal Grandmother Cancer Maternal Grandmother Diabetes Maternal Grandmother Miscarriages / Stillbirths Maternal Grandmother Arthritis Paternal Grandfather Diabetes Paternal Grandfather Arthritis Paternal Grandmother Diabetes Paternal Grandmother Asthma Son Hypertension Son defects Daughter GI problems Daughter Cancer Father's Sister Cancer Father's Brother Hypertension Brother Mental illness Brother Family Status - Relation Status Age at Mother Father Maternal Grandfather Maternal Grandmother Paternal Grandfather Paternal Grandmother Son Daughter Father's Sister Father's Brother Brother Level of Service:55578 [place] OFFICE/OUTPATIENT ESTABLISHED MOD MDM 30 MIN Reason for Visit and Comments: Follow-up [[id number]] Normal [facility] MR LUMBAR SPINE W AND WO CON TRASTon 02-27-2023 MR LUMBAR SPINE W AND WO CONTRAST MR LUMBAR SPINE W AND WO CONTRAST 02/27/2023 11:06 AM CLINICAL INDICATIONS: Low back pain, lumbar radiculopathy PROTOCOL: CONTRAST: 20 mL Dotarem COMPARISON: Lumbar spine x-rays 12/22/2022 FINDINGS: Vertebral body height and alignment is maintained. No abnormal marrow signal or enhancement. Intervertebral disc height and signal intensity is preserved. No evidence of discitis. No extradural fluid collection. No intrathecal mass. Conus medullaris terminates at the T12-L1 level. T12-L1: No spinal stenosis or neural foraminal narrowing. L1-2: No spinal stenosis or neural foraminal narrowing. L2-L3: No spinal stenosis or neural foraminal narrowing. L3-L4: Broad-based disc bulge with bilateral foraminal protrusions. Mild to moderate facet arthropathy. Mild narrowing of the spinal canal with impingement of the lateral recesses. No significant neural foraminal narrowing. L4-L5: Broad-based disc bulge. Moderate to severe bilateral facet arthropathy, greater on the left. Mild narrowing of the spinal canal with impingement of both lateral recesses. No significant neural foraminal narrowing. L5-S1: Broad-based disc bulge. Moderate to severe bilateral facet arthropathy. No spinal stenosis or neural foraminal narrowing. IMPRESSION: * Degenerative disc and facet disease without significant spinal stenosis. *Narrowing of the lateral recesses causing impingement of bilateral L4 and bilateral L5 nerve roots. Electronically signed: Krishna Magana. [facility] 02-12-2023 ANES ------ -- Attestation signed by Carlos Perkins MD at 02/12/2023 11:43 AM I saw and evaluated the patient, participating in the head portions of the service. I reviewed the resident???s note. I agree with the resident???s findings and plan. Carlos Perkins MD -- Patient: Delicia Serrano Pre-sedation Evaluation: Sedation necessary for: Analgesia and Anxiety Requesting service: pain management History of Present Illness: long standing history of neck pain with paresthesias radiating mainly down the right arm Past Medical History: Diagnosis Date Back pain Chronic pain disorder Cluster headache Extremity pain Fibromyalgia, primary Headache Headache, tension-type Joint pain Low back pain Lyme disease Migraine Peripheral neuropathy Principle problems: Patient Active Problem List Diagnosis Date Noted Seronegative arthritis 02/02/2023 Lumbar radiculopathy 01/12/2023 Neuropathy 01/06/2023 Chronic midline low back pain with sciatica 12/22/2022 Current use of steroid medication 12/22/2022 Pseudotumor cerebri 12/22/2022 Radiculopathy, cervical region 12/22/2022 Hyperglycemia 12/22/2022 Pain in both feet 11/18/2022 Pain in both hands 11/18/2022 Myalgia 11/18/2022 Neck pain, chronic 11/18/2022 Fibromyalgia 11/18/2022 state, incidental 01/09/2005 Allergies: Allergies Allergen Reactions Sulfa (Sulfonamide Antibiotics) Rash and Shortness of breath Other reaction(s): Unknown Other Reaction(s): Anaphylaxis-Bakers Yeast Metformin Hcl Other Reaction(s): GI Symptoms Pioglitazone Other reaction(s): 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 20 tablet 0 ochtzhb-ulykzixujqedy-zotu eine (Excedrin Extra Strength) 250-250-65 mg tablet 2 tablets Orally Once a day PRN BD Luer-Diana Syringe 3 mL 23 x 1 syringe USE DIRECTED TO INJECT CYANOCOBALAMIN busPIRone (Buspar) 10 mg tablet Take 10 mg by mouth in the morning and at bedtime. cetirizine-pseudoephedrine (ZyrTEC-D) 5-120 mg 12 hr tablet Take 1 tablet by mouth if needed in the morning and at bedtime. cyanocobalamin (Vitamin B-12) 1,000 mcg/mL injection INJECT 1ML IM MONTHLY DIRECTED DULoxetine (Cymbalta) [address] capsule Take 20 mg by mouth in the morning. ferrous sulfate 325 (65 Fe) MG tablet Take 1 tablet by mouth in the morning. folic acid (Folvite) 1 mg tablet Take 1 tablet (1 mg) by mouth in the morning. 30 tablet 3 FreeStyle Yared 3 Sensor device USE DIRECTED AND CHANGE EVERY 2 WEEKS FreeStyle Lite Strips strip furosemide (Lasix) 20 mg tablet Take 20 mg by mouth if needed in the morning and at bedtime. ibuprofen 800 mg tablet every 8 (eight) hours. lidocaine (Lidoderm) 5 % patch APPLY ONE PATCH VIA EXTERNAL ROUTE ONCE DAILY AND REMOVE AFTER 12 HOURS FOR 30 DAYS 30 DAYS meloxicam (Mobic) 15 mg tablet Take 15 mg by mouth in the morning. meloxicam (Mobic) 7.5 mg tablet Take 7.5 mg by mouth in the morning. methotrexate 2.5 mg tablet Take 5 tablets (12.5 mg total) by mouth 1 (one) time per week Follow directions carefully, and ask to explain any part you do not understand. Take exactly as directed. 20 tablet 3 multivitamin tablet Take 1 tablet by mouth in the morning. OneTouch Delica Plus Lancet 33 gauge misc OneTouch Ultra2 Meter [facility] See administration instructions. potassium chloride CR (Klor-Con) 10 mEq ER tablet Take 10 mEq by mouth in the morning and at bedtime. predniSONE (Deltasone) 5 mg tablet Take 3 tablets daily for 7 days then 2 tablets daily for 7 days then one tablet daily for 7 days (Patient not taking: Reported on 02/02/2023) 42 tablet 0 predniSONE (Deltasone) 5 mg tablet Take 1 tablet (5 mg) by mouth if needed (sever joint pain and swelling) for up to 10 days. 30 tablet 0 pregabalin (Lyrica) 300 mg capsule Take 300 mg by mouth in the morning and at bedtime. QUEtiapine (SEROquel) 50 mg tablet Take 50 mg by mouth with breakfast. simvastatin (Zocor) 20 mg tablet Take 20 mg by mouth in the evening. SUMAtriptan (Imitrex) 50 mg tablet TAKE ONE TABLET BY MOUTH AT LEAST 2 HOURS BETWEEN DOSES NEEDED FOR MIGRAINE FOR 30 DAYS tiZANidine (Zanaflex) 4 mg tablet TAKE THREE TABLETS BY MOUTH AT BEDTIME NEEDED topiramate (Topamax) 25 mg tablet TAKE THREE TABLETS BY MOUTH DAILY AT BEDTIME traZODone (Desyrel) 50 mg tablet TAKE ONE TABLET BY MOUTH ONCE DAILY AT BEDTIME NEEDED Wegovy 0.25 mg/0.5 mL pen injector zolpidem (Ambien) 10 mg tablet Take 10 mg by mouth at bedtime. No c (more content not included)... [facility] 02-12-2023 ------ -- Attestation signed by Carlos Perkins MD at 02/12/2023 11:54 AM I saw and evaluated the patient, participating in the head portions of the service. I reviewed the resident???s note. I agree with the resident???s findings and plan. Carlos Perkins MD -- History Of Present Illness Delicia Serrano is a 42 y.o. female presenting with long standing history of neck pain radiating down the right arm . Patient presents for a VAMSI C7-T1. Past Medical History She has a past medical history of Back pain, Chronic pain disorder, Cluster headache, Extremity pain, Fibromyalgia, primary, Headache, Headache, tension-type, Joint pain, Low back pain, Lyme disease, Migraine, and Peripheral neuropathy. Surgical History She has a past surgical history that includes section, classic; Breast surgery (Bilateral); section, classic; and Bladder repair. Social History She reports that she has never smoked. She has never used smokeless tobacco. She reports that she does not currently use alcohol. She reports that she does not use drugs. Family History Family History Problem Relation Name Age of Onset Hypertension Mother Amanda Diabetes Mother Amanda Hyperlipidemia Mother Amanda Anxiety disorder Mother Amanda Depression Mother Amanda Migraines Mother Amanda Hypertension Father Negro Diabetes Father Negro Hyperlipidemia Father Negro Arthritis Maternal Grandfather Dominick Cancer Maternal Grandfather [place] Diabetes Maternal Grandfather [place] Stroke Maternal Grandfather [place] Arthritis Maternal Grandmother Raydene Cancer Maternal Grandmother Raydene Diabetes Maternal Grandmother Raydene Miscarriages / Stillbirths Maternal Grandmother Raydene Arthritis Paternal Grandfather Vasiliy Diabetes Paternal Grandfather Vasiliy Arthritis Paternal Grandmother Jane Diabetes Paternal Grandmother Jane Asthma Son Santana Hypertension Son Santana defects Daughter Kathy GI problems Daughter Kathy Cancer Father's Sister Leigh Cancer Father's Brother Gene Hypertension [place] Mental illness [place] Allergies Sulfa (sulfonamide antibiotics), Metformin hcl, and Pioglitazone Medications (Not in a hospital admission) Airway Assessment and ASA Score Review of Systems Musculoskeletal: Positive for neck pain. All other systems reviewed and are negative. Last Recorded Vitals Visit Vitals BP 111/61 Comment: right arm Pulse 75 Resp 18 Ht 1.562 m (5' 1.5 ) Wt 104 kg (230 lb) SpO2 99% BMI 42.75 kg/m??? OB Status Implant Smoking Status Never BSA 2.12 m??? Physical Exam General appearance: Well appearing, in no acute distress, alert. Psych: Mood and affect appropriate. Alert and oriented Skin: Skin color, texture, turgor normal, no rashes or lesions. HEENT: normocephalic, atraumatic, sclera non-icteric Relevant Lab Results No results found for: NA, K, CL, CO2, BUN, CREATININE, GLUCOSE, CALCIUM, ANIONGAP, EGFR, BCR Relevant Imaging Results XR lumbar spine 2 or 3 views Narrative: XR LUMBAR SPINE 2-3 VIEWS 12/22/2022 12:35 PM INDICATION: Low back pain COMPARISON: None TECHNIQUE: 3 views of the lumbar spine were obtained. FINDINGS: There are 5 lumbar-type nonrib-bearing vertebrae. Vertebral body alignment is appropriate without spondylolisthesis. Vertebral body heights are well-maintained. There is minimal degenerative disc disease. IUD within the pelvis. Suggestion of 4 mm right renal calculus. Impression: 1.No definite acute osseous abnormality. 2.Right renal calculus. Electronically signed: Tripp Bocanegra. Assessment/Plan Active Problems: There are no active Hospital Problems. VAMSI C7-T1 Normal [facility] POCT GLUCOSE METER UNSOLICIT ED RESULTSon 02-12-2023 Glucose [Mass/Vol] 109 mg/dL High 70-105 [facility] Comment on above: Order Comment: Waive d Testing in the ED is performed under the ED CLIA certificate #[id number]. Result Comment: [id number] Performed By: #### L [id number] ####[facility] (BEAKER)[address] [place] [address] A1C with Estimated Average [facility] 02-11-2023 Glucose [Mass/Vol] 128 mg/dL Normal [facility] Comment on above: Result Comment: PERF ORMED BY: [facility] [address] [place] [address] PATHOLOGIST FRONT END DEVELOPER DESIGNER JUNIOR GREEN M.D. Performed By: #### L IPID, A1C [facility] ####[facility] [id number] [facility] [place] [address] [facility] HbA1c (Bld) [Mass fraction] 6.1 % High 4.3-5.6 [facility] Comment on above: Result Comment: Incr eased risk for diabetes: 5.7 - 6.4 diabetes: >6.4 glycemic control for adults with diabetes: <7.0 Performed By: #### L IPID, A1C WTH eA ####[facility] [id number] [place] [address] [facility] Alanine aminotransferase [En zymatic activity/volume] in Serum or PlasmaOrdered By: Mariana Cortes on 02-11-2023 ALT [Catalytic activity/Vol] 16 U/L 7-52 [facility] Albumin [Mass/volume] in Ser um or PlasmaOrdered By: Mariana Cortes on 02-11-2023 Albumin [Mass/Vol] 3.6 g/dL 2.9-4.4 [facility] Albumin [Mass/volume] in Ser um or Plasma by Bromocresol green (BCG) dye binding methoOrdered By: erinn Cortes on 02-11-2023 Albumin BCG dye [Mass/Vol] 4.2 g/dL 3.5-5.7 [facility] Alkaline phosphatase [Enzyma tic activity/volume] in Serum or PlasmaOrdered By: erinn Cortes on 02-11-2023 ALP [Catalytic activity/Vol] 65 U/L 34-104 [facility] Aspartate aminotransferase [ Enzymatic activity/volume] in Serum or PlasmaOrdered By: erinn Cortes on 02-11-2023 AST [Catalytic activity/Vol] 15 U/L 13-39 [facility] Basophils Auto (Bld) [#/Vol] Ordered By: erinn Cortes on 02-11-2023 Basophils (Bld) [#/Vol] 0.1 10*3/uL 0.0-0.2 [facility] Basophils/100 WBC Auto (Bld) Ordered By: erinn Cortes on 02-11-2023 Basophils/100 WBC (Bld) 0.8 % . [facility] Bilirubin.total [Mass/volume ] in Serum or PlasmaOrdered By: Mariana Cortes on 02-11-2023 Bilirubin [Mass/Vol] 0.4 mg/dL 0.3-1.0 [facility] Calcium [Mass/volume] in Ser um or PlasmaOrdered By: Mariana Cortes on 02-11-2023 Calcium [Mass/Vol] 8.9 mg/dL 8.6-10.3 [facility] Carbon dioxide, total [Moles /volume] in Serum or PlasmaOrdered By: Mariana Nguyen on 02-11-2023 CO2 [Moles/Vol] 23.6 mmol/L 21.0-31.0 [facility] Chloride [Moles/volume] in S gopal or PlasmaOrdered By: erinn Cortes on 02-11-2023 Chloride [Moles/Vol] 109 mmol/L 98-107 [facility] Cholesterol [Mass/volume] in Serum or PlasmaOrdered By: Jenny Reis on 02-11-2023 Cholesterol [Mass/Vol] 177 mg/dL 140-200 [facility] Comment on above: Chol less than 200 m g/dl low riskChol 201-239 mg/dl borderline riskChol 240 mg/dl and greater high risk Cholesterol in LDL Calc [Mas s/Vol]Ordered By: Jenny Reis on 02-11-2023 Cholesterol in LDL [Mass/Vol] 103 mg/dL 0-100 [facility] Comment on above: LDL ATP III CLASSIFI CATIONLDL less than 100 mg/dL OptimalLDL 100-129 mg/dL Near or above optimalLDL 130-159 mg/dL Borderline highLDL 160-189 mg/dL HighLDL greater than 189 mg/dL Very high Cholesterol in VLDL Calc [Ma ss/Vol]Ordered By: Jenny Reis on 02-11-2023 Cholesterol in VLDL [Mass/Vol] 41 mg/dL [facility] Complete Blood Count Auto Di ffon 02-11-2023 Basophils (Bld) [#/Vol] 0.1 10*3/uL Normal 0.0-0.2 [facility] Comment on above: Result Comment: PERF ORMED BY: [facility] [address] [place] [address] PATHOLOGIST FRONT END DEVELOPER DESIGNER JUNIOR GREEN M.D. Performed By: #### K APPA, SPE, NORMAN SERUM ####[facility] ,#### CBC ####[address] Basophils/100 WBC (Bld) 0.8 % Normal . [facility] Comment on above: Performed By: #### K APPA, SPE, NORMAN SERUM ####[facility] ,#### CBC ####[address] Eosinophils (Bld) [#/Vol] 0.2 10*3/uL Normal 0.0-0.45 [facility] Comment on above: Performed By: #### K APPA, SPE, NORMAN SERUM ####[facility] ,#### CBC ####[address] Eosinophils/100 WBC (Bld) 1.8 % Normal . [facility] Comment on above: Performed By: #### K APPA, SPE, NORMAN SERUM ####[facility] ,#### CBC ####[address] Erythrocyte distribution width (RBC) [Ratio] 14.2 % Normal 11.9-15.3 [facility] Comment on above: Performed By: #### K APPA, SPE, NORMAN SERUM ####[facility] ,#### CBC ####[address] Hematocrit (Bld) [Volume fraction] 37.5 % Normal 34.0-46.4 [facility] Comment on above: Performed By: #### K APPA, SPE, NORMAN SERUM ####[facility] ,#### CBC ####[address] Hemoglobin (Bld) [Mass/Vol] 12.6 g/dL Normal 11.8-15.4 [facility] Comment on above: Performed By: #### K APPA, SPE, NORMAN SERUM ####[facility] ,#### CBC ####[address] Lymphocytes (Bld) [#/Vol] 3.3 10*3/uL Normal 1.00-4.8 [facility] Comment on above: Performed By: #### K APPA, SPE, NORMAN SERUM ####[facility] ,#### CBC ####[address] Lymphocytes/100 WBC (Bld) 30.0 % Normal . [facility] Comment on above: Performed By: #### K APPA, SPE, NORMAN SERUM ####[facility] ,#### CBC ####[address] MCH (RBC) [Entitic mass] 29.0 pg Normal 24.7-34.3 [facility] Comment on above: Performed By: #### K APPA, SPE, NORMAN SERUM ####[facility] ,#### CBC ####[address] MCV (RBC) [Entitic vol] 86.3 fL Normal 80-100 [facility] Comment on above: Performed By: #### K APPA, SPE, NORMAN SERUM ####[facility] ,#### CBC ####[address] Mean Corpuscular HGB Conc 33.6 g/dL Normal 32.0-35.0 [facility] Comment on above: Performed By: #### K APPA, SPE, NORMAN SERUM ####[facility] ,#### CBC ####[address] Monocytes (Bld) [#/Vol] 0.4 10*3/uL Normal 0.0-0.8 [facility] Comment on above: Performed By: #### K APPA, SPE, NORMAN SERUM ####[facility] ,#### CBC ####[address] [address] [place] Monocytes/100 WBC (Bld) 4.0 % Normal . [facility] Comment on above: Performed By: #### K APPA, SPE, NORMAN SERUM ####[facility] ,#### CBC ####[place] [address] [place] Neutrophils (Bld) [#/Vol] 7.0 10*3/uL Normal 1.8-7.7 [facility] Comment on above: Performed By: #### K APPA, SPE, NORMAN SERUM ####[facility] ,#### CBC ####[address] Neutrophils/100 WBC (Bld) 63.4 % Normal . [facility] Comment on above: Performed By: #### K APPA, SPE, NORMAN SERUM ####[facility] ,#### CBC ####[address] NRBC% 0.1 /100{WBC} Normal 0-0.5 [facility] Comment on above: Performed By: #### K APPA, SPE, NORMAN SERUM ####[facility] ,#### CBC ####[place] [id number] [facility] Platelet mean volume (Bld) [Entitic vol] 6.4 fL Normal 6.3-10.7 [facility] Comment on above: Performed By: #### K APPA, SPE, NORMAN SERUM ####[facility] ,#### CBC ####[address] [place] [address] [place] Platelets (Bld) [#/Vol] 388 10*3/uL Normal 150-450 [facility] Comment on above: Performed By: #### K APPA, SPE, NORMAN SERUM ####[facility] ,#### CBC ####[address] RBC (Bld) [#/Vol] 4.35 10*6/uL Normal 3.60-5.00 [facility] Comment on above: Performed By: #### K APPA, SPE, NORMAN SERUM ####[facility] ,#### CBC ####[address] WBC (Bld) [#/Vol] 11.1 10*3/uL Normal 3.8-11.6 [facility] Comment on above: Performed By: #### K APPA, SPE, NORMAN SERUM ####[facility] ,#### CBC ####[address] Comprehensive Metabolic Pane raimundo 02-11-2023 Albumin [Mass/Vol] 4.2 g/dL Normal 3.5-5.7 [facility] Comment on above: Performed By: #### F ER, [id number], FE and TIBC, CMP ####[address] Albumin/Globulin [Mass ratio] 1.8 {ratio} Normal [facility] Comment on above: Performed By: #### F ER, [id number], FE and TIBC, CMP ####[address] ALP [Catalytic activity/Vol] 65 U/L Normal 34-104 [facility] Comment on above: Performed By: #### F ER, [id number], FE and TIBC, CMP ####[address] ALT [Catalytic activity/Vol] 16 U/L Normal 7-52 [facility] Comment on above: Performed By: #### F ER, [id number], FE and TIBC, CMP ####[address] Anion gap [Moles/Vol] 13.5 mmol/L Normal 6.0-15.0 [facility] Comment on above: Performed By: #### F ER, [id number], FE and TIBC, CMP ####[address] AST [Catalytic activity/Vol] 15 U/L Normal 13-39 [facility] Comment on above: Performed By: #### F ER, [id number], FE and TIBC, CMP ####[address] Bilirubin [Mass/Vol] 0.4 mg/dL Normal 0.3-1.0 [facility] Comment on above: Performed By: #### F ER, [id number], FE and TIBC, CMP ####[address] Calcium [Mass/Vol] 8.9 mg/dL Normal 8.6-10.3 [facility] Comment on above: Performed By: #### F ER, [id number], FE and TIBC, CMP ####[address] Chloride [Moles/Vol] 109 mmol/L High 98-107 [facility] Comment on above: Performed By: #### F ER, [id number], FE and TIBC, CMP ####[address] CO2 [Moles/Vol] 23.6 mmol/L Normal 21.0-31.0 [facility] Comment on above: Performed By: #### F ER, [id number], FE and TIBC, CMP ####[address] [address] [facility] Creatinine [Mass/Vol] 0.93 mg/dL Normal 0.60-1.20 [facility] Comment on above: Performed By: #### F ER, [id number], FE and TIBC, CMP ####[place] [id number] [facility] Creatinine Clr Calc Pharmacy 91.82 [facility] Comment on above: Performed By: #### F ER, [id number], FE and TIBC, CMP ####[place] [id number] [facility] GFR/1.73 sq M.predicted MDRD (S/P/Bld) [Vol rate/Area] mL/min/{1.73_m2} [facility] Comment on above: Performed By: #### F ER, [id number], FE and TIBC, CMP ####[place] [id number] [facility] Globulin (S) [Mass/Vol] 2.4 g/dL [facility] Comment on above: Performed By: #### F ER, [id number], FE and TIBC, CMP ####[address] Glucose [Mass/Vol] 85 mg/dL Normal 70-100 [facility] Comment on above: Result Comment: [place] Glucose Reference Range is dependent on time and content of last meal. Glucose of more than 200 mg/dL in a nonstressed, ambulatory subject supports the diagnosis of Diabetes Mellitus. ADA recommended reference range Performed By: #### F ER, [id number], FE and TIBC, CMP ####[place] [id number] [facility] Potassium [Moles/Vol] 4.1 mmol/L Normal 3.5-5.1 [facility] Comment on above: Performed By: #### F ER, [id number], FE and TIBC, CMP ####[place] [id number] [facility] Protein [Mass/Vol] 6.6 g/dL Normal 6.4-8.9 [facility] Comment on above: Performed By: #### F ER, [id number], FE and TIBC, CMP ####[place] [id number] [address] Sodium [Moles/Vol] 142 mmol/L Normal 136-145 [facility] Comment on above: Performed By: #### F ER, [id number], FE and TIBC, CMP ####[address] Urea nitrogen [Mass/Vol] 21 mg/dL Normal 7-25 [facility] Comment on above: Performed By: #### F ER, [id number], FE and TIBC, CMP ####[address] Creatinine [Mass/volume] in Serum or PlasmaOrdered By: Mariana Cortes on 02-11-2023 Creatinine [Mass/Vol] 0.93 mg/dL 0.60-1.20 [facility] Eosinophils Auto (Bld) [#/Vo l]Ordered By: erinn Cortes on 02-11-2023 Eosinophils (Bld) [#/Vol] 0.2 10*3/uL 0.0-0.45 [facility] Eosinophils/100 WBC Auto (Bl d)Ordered By: erinn Cortes on 02-11-2023 Eosinophils/100 WBC (Bld) 1.8 % . [facility] Erythrocyte distribution wid th Auto (RBC) [Ratio]Ordered By: erinn Cortes on 02-11-2023 Erythrocyte distribution width (RBC) [Ratio] 14.2 % 11.9-15.3 [facility] Ferritinon 02-11-2023 Ferritin [Mass/Vol] 72.5 ng/mL Normal 11.0-306.8 [facility] Comment on above: Performed By: #### F ER, [id number], FE and TIBC, CMP ####[place] [id number] [place] Ferritin [Mass/volume] in Se rum or PlasmaOrdered By: Mariana SteeleMarthalex on 02-11-2023 Ferritin [Mass/Vol] 72.5 ng/mL 11.0-306.8 [facility] Folate [Mass/volume] in Seru m or PlasmaOrdered By: Mariana SteeleMarthalex on 02-11-2023 Folate [Mass/Vol] 28.0 ng/mL >5.9 [facility] Comment on above: Folate reference ran ge: >5.9 ng/mlThe WHO technical consultation on folate and vitamin [id number] has determined that folate concentrations lessthan 4 ng/ml are considered deficient. Free K+L LT Chains, Qn, Son 02-11-2023 Free Cade Light Chains, S 15.3 mg/L Normal 3.3-19.4 [facility] Comment on above: Performed By: #### C SF GLU, CSFCCDIFF, CSF TP #2, CSFCCDIFF #2, CSF TP, CSF GLU #2 #### [address] Free Lambda Light Chains, S 11.3 mg/L Normal 5.7-26.3 [facility] Comment on above: Performed By: #### C SF GLU, CSFCCDIFF, CSF TP #2, CSFCCDIFF #2, CSF TP, CSF GLU #2 #### [address] Cade/Lambda Ratio, S 1.35 Normal 0.26-1.65 [facility] Comment on above: Result Comment: Perf ormed at: CB - [facility] [address] [id number] Rate Setter: Chato Rincon PhD, Phone: [phone] PERFORMED BY: [place] [address] PATHOLOGIST FRONT END DEVELOPER DESIGNER JUNIOR GREEN M.D. Performed By: #### C SF GLU, CSFCCDIFF, CSF TP #2, CSFCCDIFF #2, CSF TP, CSF GLU #2 #### [address] Globulin Calc (S) [Mass/Vol] Ordered By: Mariana Cortes on 02-11-2023 Globulin (S) [Mass/Vol] 2.4 g/dL [facility] Glucose [Mass/volume] in Ser um or PlasmaOrdered By: Mariana Cortes on 02-11-2023 Glucose [Mass/Vol] 85 mg/dL 70-100 [facility] Comment on above: ADA recommended refe rence rangeRandom Glucose Reference Range is dependent on time and content of last meal. Glucose of more than 200 mg/dL in a nonstressed, ambulatory subject supports the diagnosis of Diabetes Mellitus. Glucose mean value [Mass/vol ume] in Blood Estimated from glycated hemoglobinOrdered By: Jenny Reis on 02-11-2023 Average glucose Estimated from glycated hemoglobin (Bld) [Mass/Vol] 128 mg/dL [facility] Hematocrit Auto (Bld) [Volum e fraction]Ordered By: Mariana Cortes on 02-11-2023 Hematocrit (Bld) [Volume fraction] 37.5 % 34.0-46.4 [facility] Hemoglobin A1c percentageOrd ered By: Jenny Reis on 02-11-2023 HbA1c (Bld) [Mass fraction] 6.1 % 4.3-5.6 [facility] Comment on above: Increased risk for d iabetes: 5.7 - 6.4diabetes: >6.4glycemic control for adults with diabetes: <7.0 Hemoglobin [Mass/volume] in BloodOrdered By: Mariana Cortes on 02-11-2023 Hemoglobin (Bld) [Mass/Vol] 12.6 g/dL 11.8-15.4 [facility] IgA [Mass/volume] in Serum o r PlasmaOrdered By: Mariana Cortes on 02-11-2023 IgA [Mass/Vol] 94 mg/dL 87-352 [facility] IgG [Mass/volume] in Serum o r PlasmaOrdered By: Mariana Cortes on 02-11-2023 IgG [Mass/Vol] 726 mg/dL 586-1602 [facility] IgM [Mass/volume] in Serum o r PlasmaOrdered By: Mariana Cortes on 02-11-2023 IgM [Mass/Vol] 117 mg/dL 26-217 [facility] Comment on above: Performed at: [facility] [place], [place] [id number] Director: Chato Rincon PhD, Phone: [phone] Immunofixation,Serumon 02-11 Immunofixation, Serum Normal . [facility] Comment on above: Result Comment: No m onoclonality detected. Performed By: #### K APPA, SPE, NORMAN SERUM ####[facility] ,#### CBC ####[address] [address] [facility] Immunoglobulin A, Serum 94 mg/dL Normal 87-352 [facility] Comment on above: Performed By: #### K APPA, SPE, NORMAN SERUM ####[facility] ,#### CBC ####[address] [address] [facility] Immunoglobulin G 726 mg/dL Normal 586-1602 [facility] Comment on above: Performed By: #### K APPA, SPE, NORMAN SERUM ####[facility] ,#### CBC ####[address] [address] [place] Immunoglobulin M, Serum 117 mg/dL Normal 26-217 [facility] Comment on above: Result Comment: Perf ormed at: - [facility] [address] [place] [id number] Rate Setter: Chato Rincon PhD, Phone: [phone] Performed By: #### K APPA, SPE, NORMAN SERUM ####[facility] ,#### CBC ####[place] [id number] [facility] Immunoglobulin light chains. kappa.free [Mass/volume] in SerumOrdered By: Mariana Cortes on 11-29-2023 Immunoglobulin light chains.kappa.free (S) [Mass/Vol] 15.3 mg/L 3.3-19.4 [facility] Immunoglobulin light chains. kappa.free/Immunoglobulin light chains.lambda.free [MassOrdered By: Mariana Cortes on 02-11-2023 Immunoglobulin light chains.kappa.free/Immu noglobulin light chains.lambda.free (S) [Mass ratio] 1.35 0.26-1.65 [facility] Comment on above: Performed at: [address] [id number] Director: Chato Rincon PhD, Phone: [phone] Immunoglobulin light chains. lambda.free [Mass/volume] in Serum or PlasmaOrdered By: Mariana Cortes on 02-11-2023 Immunoglobulin light chains.lambda.free [Mass/Vol] 11.3 mg/L 5.7-26.3 [facility] Iron [Mass/volume] in Serum or PlasmaOrdered By: Mariana Cortes on 02-11-2023 Iron [Mass/Vol] 69 ug/dL 50-212 [facility] Iron and TIBC Profileon 01-15 % Iron Saturation 20.6 % Normal 20-50 [facility] Comment on above: Performed By: #### F ER, [id number], FE and TIBC, CMP ####[facility] [id number] [place] [address] [facility] Iron [Mass/Vol] 69 ug/dL Normal 50-212 [facility] Comment on above: Performed By: #### F ER, [id number], FE and TIBC, CMP ####[facility] [id number] [place] [address] [facility] Total Iron Binding Capacity 335 ug/dL Normal 255-450 [facility] Comment on above: Performed By: #### F ER, [id number], FE and TIBC, CMP ####[facility] [id number] [place] [address] [facility] Transferrin [Mass/Vol] 239 mg/dL Normal 203-362 [facility] Comment on above: Performed By: #### F ER, [id number], FE and TIBC, CMP ####[facility] [place] [id number] [facility] Iron binding capacity [Mass/ volume] in Serum or PlasmaOrdered By: Mariana Cortes on 02-11-2023 Iron binding capacity [Mass/Vol] 335 ug/dL 255-450 [facility] Iron saturation [Mass Fracti on] in Serum or PlasmaOrdered By: erinn Cortes on 02-11-2023 Iron saturation [Mass fraction] 20.6 % 20-50 [facility] Leukocytes [#/volume] correc [place] for nucleated erythrocytes in Blood by Automated counOrdered By: erinn Cortes on 02-11-2023 WBC corrected for nucl RBC Auto (Bld) [#/Vol] 11.1 10*3/uL 3.8-11.6 [facility] Lipid Panelon 02-11-2023 Cholesterol [Mass/Vol] 177 mg/dL Normal 140-200 [facility] Comment on above: Result Comment: Chol less than 200 mg/dl low risk Chol 201-239 mg/dl borderline risk Chol 240 mg/dl and greater high risk Performed By: #### L IPID, [address] eA ####[place] [address] [address] Cholesterol in HDL [Mass/Vol] 33 mg/dL Normal 23-92 [facility] Comment on above: Result Comment: HDL CHOL ATP-III CLASSIFICATION Cardiovascular Risk HDL > or equal to 60 mg/dL LOW HDL < 40 mg/dL HIGH Performed By: #### L IPID, [address] eA ####[place] [address] [place] [address] [facility] Cholesterol.total/Chol esterol in HDL [Mass ratio] 5.4 {ratio} Normal <5.0 [facility] Comment on above: Result Comment: PERF ORMED BY: [facility] [address] [place] [id number] PATHOLOGIST FRONT END DEVELOPER DESIGNER JUNIOR GREEN M.D. Performed By: #### L IPID, [address] eA ####[facility] LDL Cholesterol,Calculated 103 mg/dL High 0-100 [facility] Comment on above: Result Comment: LDL ATP III CLASSIFICATION LDL less than 100 mg/dL Optimal LDL 100-129 mg/dL Near or above optimal LDL 130-159 mg/dL Borderline high LDL 160-189 mg/dL High LDL greater than 189 mg/dL Very high Performed By: #### L IPID, A1C WT eA ####[address] Triglyceride w/Reflex 207 mg/dL High 0-149 [facility] Comment on above: Result Comment: TRIG ATP III CLASSIFICATION TRIG less than 150 mg/dL Normal TRIG 150-199 mg/dL Borderline high TRIG 200-500 mg/dL High TRIG greater than 500 mg/dL Very high Standard traceable to the Center for Disease Conrtrol and Prevention (CDC) test method. Performed By: #### L IPID, A1C [facility] eA ####[address] VLDL CHOLESTEROL 41 mg/dL Normal [facility] Comment on above: Performed By: #### L IPID, A1C [facility] eA ####[address] Lymphocytes Auto (Bld) [#/Vo l]Ordered By: Mariana Cortes on 02-11-2023 Lymphocytes (Bld) [#/Vol] 3.3 10*3/uL 1.00-4.8 [facility] Lymphocytes/100 WBC Auto (Bl d)Ordered By: Mariana Cortes on 02-11-2023 Lymphocytes/100 WBC (Bld) 30.0 % . [facility] MCH Auto (RBC) [Entitic mass ]Ordered By: Mariana Cortes on 02-11-2023 MCH (RBC) [Entitic mass] 29.0 pg 24.7-34.3 [facility] MCHC Auto (RBC) [Mass/Vol]Or dered By: Mariana Cortes on 02-11-2023 MCHC (RBC) [Mass/Vol] 33.6 g/dL 32.0-35.0 [facility] MCV Auto (RBC) [Entitic vol] Ordered By: Mariana Cortes on 02-11-2023 MCV (RBC) [Entitic vol] 86.3 fL 80-100 [facility] Monocytes Auto (Bld) [#/Vol] Ordered By: erinn Alatorre-Wendy on 02-11-2023 Monocytes (Bld) [#/Vol] 0.4 10*3/uL 0.0-0.8 [facility] Monocytes/100 WBC Auto (Bld) Ordered By: erinn Cortes on 02-11-2023 Monocytes/100 WBC (Bld) 4.0 % . [facility] Neutrophils Auto (Bld) [#/Vo l]Ordered By: erinn Cortes on 02-11-2023 Neutrophils (Bld) [#/Vol] 7.0 10*3/uL 1.8-7.7 [facility] Neutrophils/100 WBC Auto (Bl d)Ordered By: erinn Cortes on 02-11-2023 Neutrophils/100 WBC (Bld) 63.4 % . [facility] No Panel InformationOrdered By: erinn Cortes on 02-11-2023 Protein Electrophoresis M-Antwan Not observed g/dL Not Observed [facility] Protein Electrophoresis Note See comment . [facility] Comment on above: Protein electrophore sis scan will follow via computer,mail, or seam hammerer delivery. Serum Immunofixation See comment . [facility] Comment on above: No monoclonality det ected. Estimated GFR (CKD-EPI) > 60.0 mL/Min [facility] Creatinine Clearance (Chem 91.82 [facility] Nucleated erythrocytes [Pres ence] in Blood by Automated countOrdered By: Mariana Cortes on 02-11-2023 Nucleated RBC Auto Ql (Bld) 0.1 /100{WBC} 0-0.5 [facility] Platelet mean volume Auto (B ld) [Entitic vol]Ordered By: erinn Cortes on 02-11-2023 Platelet mean volume (Bld) [Entitic vol] 6.4 fL 6.3-10.7 [facility] Platelets Auto (Bld) [#/Vol] Ordered By: Luisd Sophia on 02-11-2023 Platelets (Bld) [#/Vol] 388 10*3/uL 150-450 [facility] Potassium [Moles/volume] in Serum or PlasmaOrdered By: Mariana Cortes on 02-11-2023 Potassium [Moles/Vol] 4.1 mmol/L 3.5-5.1 [facility] Protein Electrophoresis, Ser umon 02-11-2023 Albumin [Mass/Vol] 3.6 g/dL Normal 2.9-4.4 [facility] Comment on above: Performed By: #### K APPA, SPE, NORMAN SERUM ####[facility] ,#### CBC ####[address] Albumin/Globulin [Mass ratio] 1.2 {ratio} Normal 0.7-1.7 [facility] Comment on above: Performed By: #### K APPA, SPE, NORMAN SERUM ####[facility] ,#### CBC ####[address] Dgrzh-1-Ehcolepm 0.3 g/dL Normal 0.0-0.4 [facility] Comment on above: Performed By: #### K APPA, SPE, NORMAN SERUM ####[facility] ,#### CBC ####[place] [address] [place] Kmcno-0-Ougcnjnc 0.9 g/dL Normal 0.4-1.0 [facility] Comment on above: Performed By: #### K APPA, SPE, NORMAN SERUM ####[facility] ,#### CBC ####[place] [id number] [place] Beta Globulin 1.1 g/dL Normal 0.7-1.3 [facility] Comment on above: Performed By: #### K APPA, SPE, NORMAN SERUM ####[facility] ,#### CBC ####[place] [id number] [facility] Gamma Globulin 0.8 g/dL Normal 0.4-1.8 [facility] Comment on above: Performed By: #### K APPA, SPE, NORMAN SERUM ####[facility] ,#### CBC ####[place] [id number] [facility] Globulin (S) [Mass/Vol] 3.0 g/dL Normal 2.2-3.9 [facility] Comment on above: Performed By: #### K APPA, SPE, NORMAN SERUM ####[facility] ,#### CBC ####[address] M-Antwan Not Observed Normal Not Observed [facility] Comment on above: Performed By: #### K APPA, SPE, NORMAN SERUM ####[facility] ,#### CBC ####[place] [id number] [facility] Protein [Mass/Vol] 6.6 g/dL Normal 6.0-8.5 [facility] Comment on above: Performed By: #### K APPA, SPE, NORMAN SERUM ####[facility] ,#### CBC ####[place] [id number] [facility] SPE-Note Normal . [facility] Comment on above: Result Comment: Prot ein electrophoresis scan will follow via computer, mail, or seam hammerer delivery. Performed By: #### K APPA, SPE, NORMAN SERUM ####[facility] ,#### CBC ####[place] [id number] [facility] Protein [Mass/volume] in Ser um or PlasmaOrdered By: Mariana Cortes on 02-11-2023 Protein [Mass/Vol] 6.6 g/dL 6.0-8.5 [facility] Protein [Mass/Vol] 6.6 g/dL 6.4-8.9 [facility] RBC Auto (Bld) [#/Vol]Ordere d By: Mariana Cortes on 02-11-2023 RBC (Bld) [#/Vol] 4.35 10*6/uL 3.60-5.00 [facility] Serum globulin measurement ( mass/volume)Ordered By: Mariana Cortes on 02-11-2023 Globulin (S) [Mass/Vol] 3.0 g/dL 2.2-3.9 [facility] Serum or plasma albumin/glob ulin mass ratioOrdered By: Mariana Cortes on 02-11-2023 Albumin/Globulin [Mass ratio] 1.2 {ratio} 0.7-1.7 [facility] Albumin/Globulin [Mass ratio] 1.8 {ratio} [facility] Serum or plasma alpha 1 glob ulin measurement by electrophoresis (mass/volume)Ordered By: Mariana Cortes on 02-11-2023 Alpha 1 globulin Elph [Mass/Vol] 0.3 g/dL 0.0-0.4 [facility] Serum or plasma alpha 2 glob ulin measurement by electrophoresis (mass/volume)Ordered By: Mariana Cortes on 02-11-2023 Alpha 2 globulin Elph [Mass/Vol] 0.9 g/dL 0.4-1.0 [facility] Serum or plasma anion gap de terminationOrdered By: Mariana Cortes on 02-11-2023 Anion gap [Moles/Vol] 13.5 mmol/L 6.0-15.0 [facility] Serum or plasma beta globuli n measurement by electrophoresis (mass/volume)Ordered By: Mariana Cortes on 02-11-2023 Beta globulin Elph [Mass/Vol] 1.1 g/dL 0.7-1.3 [facility] Serum or plasma gamma globul in measurement by electrophoresis (mass/volume)Ordered By: Mariana Cortes on 02-11-2023 Gamma globulin Elph [Mass/Vol] 0.8 g/dL 0.4-1.8 [facility] Serum or plasma high density lipoprotein (HDL) cholesterol measurementOrdered By: Jenny Reis on 02-11-2023 Cholesterol in HDL [Mass/Vol] 33 mg/dL 23-92 [facility] Comment on above: HDL CHOL ATP-III CLA SSIFICATION Cardiovascular RiskHDL > or equal to 60 mg/dL LOWHDL < 40 mg/dL HIGH Serum or plasma total choles terol/high density lipoprotein (HDL) cholesterol mass ratOrdered By: Jenny Reis on 02-11-2023 Cholesterol.total/Chol esterol in HDL [Mass ratio] 5.4 {ratio} <5.0 [facility] Sodium [Moles/volume] in Ser um or PlasmaOrdered By: erinn Cortes on 02-11-2023 Sodium [Moles/Vol] 142 mmol/L 136-145 [facility] Transferrin [Mass/volume] in Serum or PlasmaOrdered By: Mariana Cortes on 02-11-2023 Transferrin [Mass/Vol] 239 mg/dL 203-362 [facility] Triglyceride [Mass/volume] i n Serum or PlasmaOrdered By: Jenny Reis on 02-11-2023 Triglyceride [Mass/Vol] 207 mg/dL 0-149 [facility] Comment on above: TRIG ATP III CLASSIF ICATIONTRIG less than 150 mg/dL NormalTRIG 150-199 mg/dL Borderline highTRIG 200-500 mg/dL High TRIG greater than 500 mg/dL Very highStandard traceable to the Center for Disease Conrtrol and Prevention (CDC) test method. Urea nitrogen [Mass/volume] in Serum or PlasmaOrdered By: Mariana Cortes on 02-11-2023 Urea nitrogen [Mass/Vol] 21 mg/dL 7-25 [facility] Vit. B12/Folate Profileon Cobalamin (Vitamin B12) [Mass/Vol] 343 pg/mL Normal 180-914 [facility] Comment on above: Performed By: #### F ER, [id number], FE and TIBC, CMP ####[facility] [place] [address] [facility] Folate 28.0 ng/mL Normal >5.9 [facility] Comment on above: Result Comment: Francesca te reference range: >5.9 ng/ml The WHO technical consultation on folate and vitamin b12 deficiencies has determined that folate concentrations less than 4 ng/ml are considered deficient. PERFORMED BY: [facility] [address] [address] PATHOLOGIST FRONT END DEVELOPER DESIGNER JUNIOR GREEN M.D. Performed By: #### F ER, [id number], FE and TIBC, CMP ####[facility] [id number] [place] [address] [facility] Vitamin B12 ser/plasOrdered By: Mariana Cortes on 02-11-2023 Cobalamin (Vitamin B12) [Mass/Vol] 343 pg/mL 180-914 [facility] WBC Auto (Bld) [#/Vol]Ordere d By: Mariana Cortes on 02-11-2023 WBC (Bld) [#/Vol] 11.1 10*3/uL 3.8-11.6 [facility] 36on 02-09-2023 [address] Riley ballard Mailbox. Once signed mail to patient. Normal [facility] Letter (Out)on 02-09-2023 Letter (Out) [id number] Delicia Serrano 1980 F Date Provider Department Center 02/09/2023 CHRISTIANNE LIPSCOMB [facility] R[facility]UM [facility] Family History Problem Relation Age of Onset Hypertension Mother Diabetes Mother Hyperlipidemia Mother Anxiety disorder Mother Depression Mother Migraines Mother Hypertension Father Diabetes Father Hyperlipidemia Father Arthritis Maternal Grandfather Cancer Maternal Grandfather Diabetes Maternal Grandfather Stroke Maternal Grandfather Arthritis Maternal Grandmother Cancer Maternal Grandmother Diabetes Maternal Grandmother Miscarriages / Stillbirths Maternal Grandmother Arthritis Paternal Grandfather Diabetes Paternal Grandfather Arthritis Paternal Grandmother Diabetes Paternal Grandmother Asthma Son Hypertension Son defects Daughter GI problems Daughter Cancer Father's Sister Cancer Father's Brother Hypertension Brother Mental illness Brother Family Status - Relation Status Age at Mother Father Maternal Grandfather Maternal Grandmother Paternal Grandfather Paternal Grandmother Son Daughter Father's Sister Father's Brother Brother Normal [facility] Orders Onlyon 02-03-2023 Orders Only [id number] Delicia Serrano 1980 Provider Department Center 02/03/2023 CHRISTIANNE LIPSCOMB [facility] Family History Problem Relation Age of Onset Hypertension Mother Diabetes Mother Hyperlipidemia Mother Anxiety disorder Mother Depression Mother Migraines Mother Hypertension Father Diabetes Father Hyperlipidemia Father Arthritis Maternal Grandfather Cancer Maternal Grandfather Diabetes Maternal Grandfather Stroke Maternal Grandfather Arthritis Maternal Grandmother Cancer Maternal Grandmother Diabetes Maternal Grandmother Miscarriages / Stillbirths Maternal Grandmother Arthritis Paternal Grandfather Diabetes Paternal Grandfather Arthritis Paternal Grandmother Diabetes Paternal Grandmother Asthma Son Hypertension Son defects Daughter GI problems Daughter Cancer Father's Sister Cancer Father's Brother Hypertension Brother Mental illness Brother Family Status - Relation Status Age at Mother Father Maternal Grandfather Maternal Grandmother Paternal Grandfather Paternal Grandmother Son Daughter Father's Sister Father's Brother Brother Normal [facility] Follow-Upon 02-02-2023 Follow-Up [id number] Delicia Serrano 1980 Provider Department Center 02/02/2023 CHRISTIANNE LIPSCOMB [facility] Family History Problem Relation Age of Onset Hypertension Mother Diabetes Mother Hyperlipidemia Mother Anxiety disorder Mother Depression Mother Migraines Mother Hypertension Father Diabetes Father Hyperlipidemia Father Arthritis Maternal Grandfather Cancer Maternal Grandfather Diabetes Maternal Grandfather Stroke Maternal Grandfather Arthritis Maternal Grandmother Cancer Maternal Grandmother Diabetes Maternal Grandmother Miscarriages / Stillbirths Maternal Grandmother Arthritis Paternal Grandfather Diabetes Paternal Grandfather Arthritis Paternal Grandmother Diabetes Paternal Grandmother Asthma Son Hypertension Son defects Daughter GI problems Daughter Cancer Father's Sister Cancer Father's Brother Hypertension Brother Mental illness Brother Family Status - Relation Status Age at Mother Father Maternal Grandfather Maternal Grandmother Paternal Grandfather Paternal Grandmother Son Daughter Father's Sister Father's Brother Brother Level of Service:04752 [place] OFFICE/OUTPATIENT ESTABLISHED MOD MDM 30-39 MIN Reason for Visit and Comments: Follow-up [[id number]] - recheck after steroid treatment Normal [facility] URINALYSISon 02-02-2023 BILIRUBIN, TOTAL PRESENCE IN URINE Negative Normal Negative [facility] Comment on above: Performed By: #### L [id number] #### [facility] ([facility]) [address] [place] [address] Clarity (U) Slightly Cloudy Abnormal Clear [facility] Comment on above: Performed By: #### L [id number] #### [facility] ([facility]) [address] [place] [address] Color (U) Yellow Normal Yellow [facility] Comment on above: Performed By: #### L [id number] #### [facility] ([facility]) [address] [place] [address] Glucose (U) [Mass/Vol] Negative Normal Negative [facility] Comment on above: Performed By: #### L [id number] #### [facility] ([facility]) [address] [place] [address] HEMOGLOBIN PRESENCE IN URINE Negative Normal Negative [facility] Comment on above: Performed By: #### L [id number] #### [facility] ([facility]) [address] [place] [address] Ketones Ql (U) Trace Abnormal Negative [facility] Comment on above: Performed By: #### L [id number] #### [facility] ([facility]) [address] [place] [address] LEUKOCYTE ESTERASE PRESENCE IN URINE BY TEST STRIP Negative Normal Negative [facility] Comment on above: Performed By: #### L [id number] #### [facility] ([facility]) [address] [place] [address] NITRITE PRESENCE IN URINE Negative Normal Negative [facility] Comment on above: Performed By: #### L [id number] #### [facility] ([facility]) [address] [place] [address] pH (U) 6.0 [pH] Normal 5.0-8.0 [facility] Comment on above: Performed By: #### L [id number] #### [facility] ([facility]) [address] [place] [address] Protein (U) [Mass/Vol] 30 mg/dL Abnormal Negative [facility] Comment on above: Performed By: #### L [id number] #### [facility] ([facility]) [address] [place] [address] Specific gravity (U) [Rel density] 1.027 High 1.015-1.020 [facility] Comment on above: Performed By: #### L [id number] #### [facility] ([facility]) [address] [place] [address] URINALYSIS MICROSCOPICon CALCIUM OXALATE CRYSTALS (#/HPF) IN URINE Many Abnormal None Seen [facility] Comment on above: Performed By: #### L [id number] #### [facility] ([facility]) [address] [place] [address] CASTS IN URINE Present Abnormal None Seen [facility] Comment on above: Performed By: #### L [id number] #### [facility] ([facility]) [address] [place] [address] CRYSTALS IN URINE Present Abnormal None Seen [facility] Comment on above: Performed By: #### L [id number] #### [facility] ([facility]) [address] [place] [address] HYALINE CASTS /LPF IN URINE SEDIMENT BY MICROSCOPY 2 /LPF High <1 [facility] Comment on above: Performed By: #### L [id number] #### [facility] ([facility]) [address] [place] [address] MUCUS (#/HPF) IN URINE SEDIMENT Many Abnormal None Seen, Occasional, Few [facility] Comment on above: Performed By: #### L [id number] #### [facility] ([facility]) [address] [place] [address] RBC (#/HPF) IN URINE SEDIMENT 3-5 Abnormal None Seen [facility] Comment on above: Performed By: #### L [id number] #### [facility] ([facility]) [address] [place] [address] SQUAMOUS EPITHELIAL CELLS (#/HPF) IN URINE SEDIMENT Many Abnormal None Seen, Occasional [facility] Comment on above: Performed By: #### L [id number] #### [facility] ([facility]) [address] [place] [address] WBC (LEUKOCYTE) (#/HPF) IN URINE SEDIMENT 0-2 Abnormal None Seen [facility] Comment on above: Performed By: #### L [id number] #### [facility] ([facility]) [address] [facility] [place] [address] YEAST, BUDDING (#/HPF) IN URINE Occasional Abnormal None Seen [facility] Comment on above: Performed By: #### L [id number] #### [facility] ([facility]) [address] [place] [address] Office Visiton 01-08-2023 Follow-up visit [id number] Delicia Serrano 1980 F Date Provider Department Center 01/08/2023 CARLOS ROWE [facility] Family History Problem Relation Age of Onset Hypertension Mother Diabetes Mother Hyperlipidemia Mother Anxiety disorder Mother Depression Mother Migraines Mother Hypertension Father Diabetes Father Hyperlipidemia Father Arthritis Maternal Grandfather Cancer Maternal Grandfather Diabetes Maternal Grandfather Stroke Maternal Grandfather Arthritis Maternal Grandmother Cancer Maternal Grandmother Diabetes Maternal Grandmother Miscarriages / Stillbirths Maternal Grandmother Arthritis Paternal Grandfather Diabetes Paternal Grandfather Arthritis Paternal Grandmother Diabetes Paternal Grandmother Asthma Son Hypertension Son defects Daughter GI problems Daughter Cancer Father's Sister Cancer Father's Brother Hypertension Brother Mental illness Brother Family Status - Relation Status Age at Mother Father Maternal Grandfather Maternal Grandmother Paternal Grandfather Paternal Grandmother Son Daughter Father's Sister Father's Brother Brother Level of Service:[id number] [place] OFFICE/OUTPATIENT NEW MODERATE MDM 45-59 MINUTES (GC) Reason for Visit and Comments: New Patient [632] - Neck and Low Back Pain Normal [facility] Follow-Upon 12-22-2022 Follow-Up [id number] Delicia Serrano 1980 F Date Provider Department Center 12/22/2022 CHRISTIANNE LIPSCOMB [facility] R[facility] Family History Problem Relation Age of Onset Hypertension Mother Diabetes Mother Hyperlipidemia Mother Anxiety disorder Mother Depression Mother Hypertension Father Diabetes Father Hyperlipidemia Father Arthritis Maternal Grandfather Cancer Maternal Grandfather Diabetes Maternal Grandfather Stroke Maternal Grandfather Arthritis Maternal Grandmother Cancer Maternal Grandmother Diabetes Maternal Grandmother Miscarriages / Stillbirths Maternal Grandmother Arthritis Paternal Grandfather Diabetes Paternal Grandfather Arthritis Paternal Grandmother Diabetes Paternal Grandmother Asthma Son Hypertension Son defects Daughter Cancer Father's Sister Cancer Father's Brother Hypertension Brother Mental illness Brother Family Status - Relation Status Age at Mother Father Maternal Grandfather Maternal Grandmother Paternal Grandfather Paternal Grandmother Son Daughter Father's Sister Father's Brother Brother Level of Service:[id number] [place] OFFICE/OUTPATIENT ESTABLISHED MOD MDM 30-39 MIN Reason for Visit and Comments: Follow-up [[id number]] [facility] 36on 12-17-2022 37 Spoke w/ kaye from doc office and relayed Dr. Smart's message [facility] 36on 12-15-2022 36 Called office and sp kristian w/ office nurse she sates most recent MRI was done to compkare previous MRI. 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 They are faxing the report to our office for you to view. Please advise [facility] 36on 12-11-2022 36 Monica SINGH) from Dr. Quintero's office called to state based on pt MRI results they are potentially going to do a lumbar puncture. She called to ask if there was any testing you would like to add to the potential CSF studies. Please advise [facility] MR head/brain wo/w [facility] MR head/brain wo/w con [facility] Main [address] [address] MRI Report Signed Patient: Delicia Serarno MR#: [id number] : 1980 Acct:[id number] Age/Sex: 42 / F ADM Date: 11/27/22 Loc: MR Room: Type: [facility] Attending Dr: Disha Dillard PA-C Copies to: Disha Dillard PA-C Ordering Provider: Disha Dillard PA-C Date of Service: 11/27/22 MR/MR head/brain wo/w con: R42, R20.2, M79.10 MR head/brain wo/w con 11/27/2022 4:56 PM SIGN AND SYMPTOMS: Headaches, chronic migraines, numbness in right arm and hand PROTOCOL: Multiplanar multisequence MR images of the brain were obtained with and without IV contrast CONTRAST: 20 mL of intravenous ProHance COMPARISON: 05/07/2018 FINDINGS: Extra axial spaces: Age appropriate Hemorrhage: None. Ventricular system: Within normal limits. Basal cisterns: Within normal limits and not effaced. Cerebral parenchyma: Normal in signal. Midline shift: None.. Cerebellum: Within normal limits. Brainstem: Within normal limits. OTHER: Calvarium: Normal marrow signal. Vascular system: Satisfactory flow voids within the anterior and posterior circulation. There is narrowing of the posterior lateral transverse sinuses. This is unchanged. Visualized Paranasal sinuses: Within normal limits. Visualized Orbits: Within normal limits. Visualized upper cervical spine: Within normal limits. Sella and skull base: There is flattening of the pituitary within the sella. This is unchanged. MR/MR head/brain wo/w con IMPRESSION: No acute intracranial pathology or abnormal postcontrast enhancement. Flattening of the pituitary within the sella and narrowing of the posterior lateral transverse sinuses is noted. These findings can be seen in patients with intracranial hypertension. Impression dictated by: Felix Lawson M.D.11/27/2022 8:39 PM Dictation Location: [place] [address] Transcribed By: [facility] 11/27/222038 Dictated By: Felix Lawson II, MD 11/27/222030 Signed By: 11/27/222038 [facility] XR pre/post mri xrayon 11-27 XR pre/post mri xray [facility] [place] [address] MRI Report Signed Patient: Delicia Serrano MR#: [id number] : 1980 Acct:[id number] Age/Sex: 42 / F ADM Date: 11/27/22 Loc: MR Room: Type: [facility] Attending Dr: Disha Dillard PA-C Copies to: Disha Dillard PA-C Ordering Provider: Disha Dillard PA-C Date of Service: 11/27/22 MR/MR cervical spine wo/w con: R42, R20.2, M79.10 ([id number]) XR/XR pre/post mri xray: R42, R20.2, M79.10 MR cervical spine wo/w con, XR pre/post mri xray 11/27/2022 4:56 PM SIGNS AND SYMPTOMS: Numbness in right arm and hand, chronic migraine headaches, paresthesias, myalgia PROTOCOL: Multiplanar multisequence MR images of the cervical spine were obtained with and without IV contrast. Radiographs of the cervical spine were obtained including lateral and bilateral oblique. CONTRAST: 20 mL of intravenous ProHance. COMPARISON: 06/25/2020. FINDINGS: Radiographs of the cervical spine: The bones are in anatomic alignment. There is preservation of vertebral body heights and intervertebral discs. There is no fracture or subluxation. The prevertebral soft tissues are within normal limits. MRI cervical spine: The bones of the cervical spine are in anatomic alignment. There is preservation of vertebral body heights and intervertebral disc spaces. The marrow signal is within normal limits. The cord is normal in signal. No epidural or paraspinous fluid collection is appreciated. The visualized paraspinous soft tissues are within normal limits. The prevertebral soft tissues are within normal limits. There is flattening of the pituitary within the sella. There is no abnormal postcontrast enhancement. At C2-C3: There is a normal disc, central canal, and neural foramen. At C3-C4: There is uncovertebral joint spurring bilaterally contributing to wuba-dr-ftucmhbh bilateral neural foraminal narrowing without significant spinal canal stenosis. This is unchanged. At C4-C5: There is a normal disc, central canal, and neural foramen. At C5-C6: There is a normal disc, central canal, and neural foramen. At C6-C7: There is a normal disc, central canal, and neural foramen. At C7-T1: There is a normal disc, central canal, and neural foramen. MR/MR cervical spine wo/w con IMPRESSION: At C3-C4: There is uncovertebral joint spurring bilaterally contributing to jmyr-ha-iopwygfh bilateral neural foraminal narrowing without significant spinal canal stenosis. This is unchanged. No cord compression or cord signal abnormality. No abnormal postcontrast enhancement. Incidental note is made of flattening of the pituitary within the sella. Impression dictated by: Felix Lawson M.D.11/27/2022 8:45 PM Dictation Location: [place] [address] Transcribed By: [facility] 11/27/222044 Dictated By: Felix Lawson II, MD 11/27/222038 Signed By: 11/27/222044 [facility] ANAon 11-18-2022 DEEPA TITER <1:40 Normal <=1:40 [facility] Comment on above: Result Comment: Test performed using ELDA IFA DEEPA Hep-2 Test, a pre-standardized assay designed for the qualitative and semi-quantitative detection of antinuclear antibodies. Performed By: #### L [id number] #### [facility] ([facility]) [address] [place] [address] C-REACTIVE PROTEINon 023 C REACTIVE PROTEIN (MG/L) IN SER/PLAS 10.2 mg/L High 0.0-7.0 [facility] Comment on above: Performed By: #### L [id number] #### [facility] ([facility]) [address] [place] [address] CKon 11-18-2022 CREATINE KINASE (U/L) IN SER/PLAS 212.0 U/L Normal 30.0-223.0 [facility] Comment on above: Performed By: #### L [id number] ####[facility] ([facility])[address] [place] [address] CYCLIC CITRUL PEPTIDE ANTIBO DY, IGG AND IGAon 11-18-2022 CYCLIC CITRULLINATED PEPTIDE AB, IGG/A 2 Units Normal 0-19 [facility] Comment on above: Result Comment: INTE RPRETIVE INFORMATION: Cyclic Citrullinated Peptide Ab, IgG/A 19 Units or less ................... Negative 20-39 Units ........................ Weak Positive 40-59 Units ........................ Moderate Positive 60 Units or greater ................ Strong Positive A positive result for cyclic citrullinated peptide (CCP) antibodies in conjunction with consistent clinical features may be suggestive of rheumatoid arthritis (RA). Anti-CCP, IgG/IgA antibodies are present in about 66-74 percent of RA patients and have specificities of 96-99 percent. Detection of IgA antibodies in addition to the usual IgG antibodies enhances the sensitivity due to some RA patients having IgA antibodies to CCP in the absence of IgG. These autoantibodies may be present in the preclinical phase of disease, are associated with future RA development, and may predict radiographic joint destruction. Patients with weak positive results should be monitored and testing repeated. Performed By: [facility] [address] [place] [address] Asset Protection Associate: Long Rey MD, PhD CLIA Number: [id number] Performed By: #### L [id number] #### [facility] ([facility]) [address] [place] [address] Office Visiton 11-18-2022 Follow-up visit [id number] Delicia Serrano 1980 Date Provider Department Center 11/18/2022 CHRISTIANNE LIPSCOMB [facility] Family History Problem Relation Age of Onset Hypertension Mother Diabetes Mother Hyperlipidemia Mother Hypertension Father Diabetes Father Hyperlipidemia Father Family Status - Relation Status Age at Mother Father Level of Service:79891 [place] OFFICE/OUTPATIENT NEW MODERATE MDM 45-59 MINUTES (GC) Reason for Visit and Comments: New Patient [632] - Joint pain.Muscle pain Normal [facility] Orders Onlyon 11-18-2022 Orders Only [id number] Delicia Serrano 1980 F Date Provider Department Center 11/18/2022 355CHRISTIANNE CORRALES [facility] Family History Problem Relation Age of Onset Hypertension Mother Diabetes Mother Hyperlipidemia Mother Hypertension Father Diabetes Father Hyperlipidemia Father Family Status - Relation Status Age at Mother Father Normal [facility] RHEUMATOID FACTORon 11-19-19 23 Rheumatoid factor Qn [IU]/mL Normal 0-20 [facility] Comment on above: Performed By: #### L [id number] #### [facility] ([facility]) [address] [place] [address] SEDIMENTATION RATEon 023 SEDIMENTATION RATE, ERYTHROCYTE 19 mm/hr Normal <=20 [facility] Comment on above: Performed By: #### L [id number] ####[facility] ([facility])[address] [place] [address] CT abdomen pelvis w conon CT abdomen pelvis w con [facility] Main [place] [address] [place] [address] CT Scan Report Signed Patient: Delicia Serrano MR#: [id number] : 1980 Acct:[id number] Age/Sex: 42 / F ADM Date: 11/13/22 Loc: Room: Type: [facility] Attending Dr: Nicki Duran APRN Copies to: Nicki Duran APRN Ordering Provider: Nicki Duran APRN Date of Service: 11/13/22 CT/CT chest w con: chest heaviness abdominal pain ([id number]) CT/CT abdomen pelvis w con: chest heaviness abdominal pain CT CHEST, ABDOMEN AND PELVIS WITH INTRAVENOUS CONTRAST: CLINICAL HISTORY: Diffuse pain. Fatigue, dizziness COMPARISON: Outside CT chest 08/13/2020 TECHNIQUE: TECHNIQUE: Spiral images were obtained through the chest, abdomen and pelvis following the administration of IV contrast. This CT exam was performed using one or more following dose reduction techniques: Automated exposure control, adjustment of the mA and/or kV according to patient size, or use of iterative reconstruction technique. FINDINGS: CT chest: Mediastinum:Thoracic aorta appears normal in caliber. Pulmonary trunk appears nondilated. No pleural effusion. No lymphadenopathy. The esophagus is grossly unremarkable. Lungs:Dependent atelectatic changes. No consolidation pneumothorax or pleural effusion. Soft tissues/Bones: Soft tissues demonstrate no acute findings. Osseous structures demonstrate minimal degenerative change. CT abdomen and pelvis: Organs:Liver gallbladder portal vein spleen pancreas and adrenal glands all appear unremarkable. 4 mm stone right kidney. Subcentimeter low-attenuation lesions are seen within the kidneys, too small for accurate characterization. Abdominal aorta appears normal in caliber. GI: Stomach is grossly unremarkable. Small bowel appears nondilated. No acute colonic abnormality.[ Pelvis:[IUD is in place. No adnexal mass. Urinary bladder is grossly unremarkable.] Peritoneum/Retroperitoneum :No free air, free fluid or lymphadenopathy.[ Abd wall/Bones:Abdominal wall demonstrates no acute findings. Osseous structures demonstrate minimal degenerative change.[ CT/CT chest w con IMPRESSION: No acute findings seen within the chest, abdomen or pelvis. Right nephrolithiasis. Impression dictated by: Moose Velazco Jr., D.O.11/13/2022 11:44 AM Dictation Location: [place] [address] Transcribed By: [facility] 11/13/22 1144 Dictated By: Moose Velazco Jr, DO 11/13/22 1136 Signed By: 11/13/22 1144 Normal [facility] Alanine aminotransferase [En zymatic activity/volume] in Serum or PlasmaOrdered By: Nicki Duran on 11-04-2022 ALT [Catalytic activity/Vol] 20 U/L 7-52 [facility] Albumin [Mass/volume] in Ser um or PlasmaOrdered By: Nicki Duran on 11-04-2022 Albumin [Mass/Vol] 3.6 g/dL 2.9-4.4 [facility] Albumin [Mass/volume] in Ser um or Plasma by Bromocresol green (BCG) dye binding methoOrdered By: Nicki Duran on 11-04-2022 Albumin BCG dye [Mass/Vol] 4.3 g/dL 3.5-5.7 [facility] Alkaline phosphatase [Enzyma tic activity/volume] in Serum or PlasmaOrdered By: Nicki Duran on 11-04-2022 ALP [Catalytic activity/Vol] 94 U/L 34-104 [facility] Aspartate aminotransferase [ Enzymatic activity/volume] in Serum or PlasmaOrdered By: Nicki Duran on 11-04-2022 AST [Catalytic activity/Vol] 15 U/L 13-39 [facility] Basophils Auto (Bld) [#/Vol] Ordered By: Nicki Roger on 11-04-2022 Basophils (Bld) [#/Vol] 0.1 10*3/uL 0.0-0.2 [facility] Basophils/100 WBC Auto (Bld) Ordered By: Nicki Roger on 11-04-2022 Basophils/100 WBC (Bld) 0.7 % . [facility] Bilirubin.total [Mass/volume ] in Serum or PlasmaOrdered By: Nicki Roger on 11-04-2022 Bilirubin [Mass/Vol] 0.3 mg/dL 0.3-1.0 [facility] Calcium [Mass/volume] in Ser um or PlasmaOrdered By: Nicki Roger on 11-04-2022 Calcium [Mass/Vol] 8.9 mg/dL 8.6-10.3 [facility] Carbon dioxide, total [Moles /volume] in Serum or PlasmaOrdered By: Nicki Roger on 11-04-2022 CO2 [Moles/Vol] 23.8 mmol/L 21.0-31.0 [facility] Chloride [Moles/volume] in S gopal or PlasmaOrdered By: Nicki Roger on 11-04-2022 Chloride [Moles/Vol] 110 mmol/L 98-107 [facility] Complete Blood Count Auto Di ffon 11-04-2022 Basophils (Bld) [#/Vol] 0.1 10*3/uL Normal 0.0-0.2 [facility] Comment on above: Result Comment: PERF ORMED BY: [place] [address] PATHOLOGIST FRONT END DEVELOPER DESIGNER JUNIOR GREEN M.D. Performed By: #### C SF GLU, CSFCCDIFF, CSF TP #2, CSFCCDIFF #2, CSF TP, CSF GLU #2 #### [facility] [address] Basophils/100 WBC (Bld) 0.7 % Normal . [facility] Comment on above: Performed By: #### C SF GLU, CSFCCDIFF, CSF TP #2, CSFCCDIFF #2, CSF TP, CSF GLU #2 #### [address] Eosinophils (Bld) [#/Vol] 0.5 10*3/uL High 0.0-0.45 [facility] Comment on above: Performed By: #### C SF GLU, CSFCCDIFF, CSF TP #2, CSFCCDIFF #2, CSF TP, CSF GLU #2 #### [address] Eosinophils/100 WBC (Bld) 3.7 % Normal . [facility] Comment on above: Performed By: #### C SF GLU, CSFCCDIFF, CSF TP #2, CSFCCDIFF #2, CSF TP, CSF GLU #2 #### [address] Erythrocyte distribution width (RBC) [Ratio] 15.3 % Normal 11.9-15.3 [facility] Comment on above: Performed By: #### C SF GLU, CSFCCDIFF, CSF TP #2, CSFCCDIFF #2, CSF TP, CSF GLU #2 #### [address] Hematocrit (Bld) [Volume fraction] 40.8 % Normal 34.0-46.4 [facility] Comment on above: Performed By: #### C SF GLU, CSFCCDIFF, CSF TP #2, CSFCCDIFF #2, CSF TP, CSF GLU #2 #### [address] Hemoglobin (Bld) [Mass/Vol] 13.5 g/dL Normal 11.8-15.4 [facility] Comment on above: Performed By: #### C SF GLU, CSFCCDIFF, CSF TP #2, CSFCCDIFF #2, CSF TP, CSF GLU #2 #### [address] Lymphocytes (Bld) [#/Vol] 4.0 10*3/uL Normal 1.00-4.8 [facility] Comment on above: Performed By: #### C SF GLU, CSFCCDIFF, CSF TP #2, CSFCCDIFF #2, CSF TP, CSF GLU #2 #### [address] Lymphocytes/100 WBC (Bld) 29.2 % Normal . [facility] Comment on above: Performed By: #### C SF GLU, CSFCCDIFF, CSF TP #2, CSFCCDIFF #2, CSF TP, CSF GLU #2 #### [address] MCH (RBC) [Entitic mass] 28.4 pg Normal 24.7-34.3 [facility] Comment on above: Performed By: #### C SF GLU, CSFCCDIFF, CSF TP #2, CSFCCDIFF #2, CSF TP, CSF GLU #2 #### [address] MCV (RBC) [Entitic vol] 85.7 fL Normal 80-100 [facility] Comment on above: Performed By: #### C SF GLU, CSFCCDIFF, CSF TP #2, CSFCCDIFF #2, CSF TP, CSF GLU #2 #### [address] Mean Corpuscular HGB Conc 33.1 g/dL Normal 32.0-35.0 [facility] Comment on above: Performed By: #### C SF GLU, CSFCCDIFF, CSF TP #2, CSFCCDIFF #2, CSF TP, CSF GLU #2 #### [address] Monocytes (Bld) [#/Vol] 0.7 10*3/uL Normal 0.0-0.8 [facility] Comment on above: Performed By: #### C SF GLU, CSFCCDIFF, CSF TP #2, CSFCCDIFF #2, CSF TP, CSF GLU #2 #### [address] Monocytes/100 WBC (Bld) 5.1 % Normal . [facility] Comment on above: Performed By: #### C SF GLU, CSFCCDIFF, CSF TP #2, CSFCCDIFF #2, CSF TP, CSF GLU #2 #### [address] Neutrophils (Bld) [#/Vol] 8.3 10*3/uL High 1.8-7.7 [facility] Comment on above: Performed By: #### C SF GLU, CSFCCDIFF, CSF TP #2, CSFCCDIFF #2, CSF TP, CSF GLU #2 #### [address] Neutrophils/100 WBC (Bld) 61.3 % Normal . [facility] Comment on above: Performed By: #### C SF GLU, CSFCCDIFF, CSF TP #2, CSFCCDIFF #2, CSF TP, CSF GLU #2 #### [address] NRBC% 0.2 /100{WBC} Normal 0-0.5 [facility] Comment on above: Performed By: #### C SF GLU, CSFCCDIFF, CSF TP #2, CSFCCDIFF #2, CSF TP, CSF GLU #2 #### [address] Platelet mean volume (Bld) [Entitic vol] 6.9 fL Normal 6.3-10.7 [facility] Comment on above: Performed By: #### C SF GLU, CSFCCDIFF, CSF TP #2, CSFCCDIFF #2, CSF TP, CSF GLU #2 #### [place] [address] [place] Platelets (Bld) [#/Vol] 385 10*3/uL Normal 150-450 [facility] Comment on above: Performed By: #### C SF GLU, CSFCCDIFF, CSF TP #2, CSFCCDIFF #2, CSF TP, CSF GLU #2 #### [address] RBC (Bld) [#/Vol] 4.76 10*6/uL Normal 3.60-5.00 [facility] Comment on above: Performed By: #### C SF GLU, CSFCCDIFF, CSF TP #2, CSFCCDIFF #2, CSF TP, CSF GLU #2 #### [facility] [address] WBC (Bld) [#/Vol] 13.6 10*3/uL High 3.8-11.6 [facility] Comment on above: Performed By: #### C SF GLU, CSFCCDIFF, CSF TP #2, CSFCCDIFF #2, CSF TP, CSF GLU #2 #### [facility] [address] Comprehensive Metabolic Pane raimundo 11-04-2022 Albumin [Mass/Vol] 4.3 g/dL Normal 3.5-5.7 [facility] Comment on above: Performed By: #### C SF GLU, CSFCCDIFF, CSF TP #2, CSFCCDIFF #2, CSF TP, CSF GLU #2 #### [facility] [address] Albumin/Globulin [Mass ratio] 1.8 {ratio} Normal [facility] Comment on above: Performed By: #### C SF GLU, CSFCCDIFF, CSF TP #2, CSFCCDIFF #2, CSF TP, CSF GLU #2 #### [address] ALP [Catalytic activity/Vol] 94 U/L Normal 34-104 [facility] Comment on above: Performed By: #### C SF GLU, CSFCCDIFF, CSF TP #2, CSFCCDIFF #2, CSF TP, CSF GLU #2 #### [facility] [address] ALT [Catalytic activity/Vol] 20 U/L Normal 7-52 [facility] Comment on above: Performed By: #### C SF GLU, CSFCCDIFF, CSF TP #2, CSFCCDIFF #2, CSF TP, CSF GLU #2 #### [facility] [address] Anion gap [Moles/Vol] 11.1 mmol/L Normal 6.0-15.0 [facility] Comment on above: Performed By: #### C SF GLU, CSFCCDIFF, CSF TP #2, CSFCCDIFF #2, CSF TP, CSF GLU #2 #### [facility] [address] [place] [address] AST [Catalytic activity/Vol] 15 U/L Normal 13-39 [facility] Comment on above: Performed By: #### C SF GLU, CSFCCDIFF, CSF TP #2, CSFCCDIFF #2, CSF TP, CSF GLU #2 #### [address] Bilirubin [Mass/Vol] 0.3 mg/dL Normal 0.3-1.0 [facility] Comment on above: Performed By: #### C SF GLU, CSFCCDIFF, CSF TP #2, CSFCCDIFF #2, CSF TP, CSF GLU #2 #### [address] Calcium [Mass/Vol] 8.9 mg/dL Normal 8.6-10.3 [facility] Comment on above: Performed By: #### C SF GLU, CSFCCDIFF, CSF TP #2, CSFCCDIFF #2, CSF TP, CSF GLU #2 #### [place] [address] [place] Chloride [Moles/Vol] 110 mmol/L High 98-107 [facility] Comment on above: Performed By: #### C SF GLU, CSFCCDIFF, CSF TP #2, CSFCCDIFF #2, CSF TP, CSF GLU #2 #### [facility] [address] [place] [address] [place] CO2 [Moles/Vol] 23.8 mmol/L Normal 21.0-31.0 [facility] Comment on above: Performed By: #### C SF GLU, CSFCCDIFF, CSF TP #2, CSFCCDIFF #2, CSF TP, CSF GLU #2 #### [address] [place] [address] [place] Creatinine [Mass/Vol] 0.98 mg/dL Normal 0.60-1.20 [facility] Comment on above: Performed By: #### C SF GLU, CSFCCDIFF, CSF TP #2, CSFCCDIFF #2, CSF TP, CSF GLU #2 #### [facility] [address] [place] [address] [place] Creatinine Clr Calc Pharmacy 88.00 [facility] Comment on above: Performed By: #### C SF GLU, CSFCCDIFF, CSF TP #2, CSFCCDIFF #2, CSF TP, CSF GLU #2 #### [facility] [address] [place] [address] [place] GFR/1.73 sq M.predicted MDRD (S/P/Bld) [Vol rate/Area] mL/min/{1.73_m2} [facility] Comment on above: Performed By: #### C SF GLU, CSFCCDIFF, CSF TP #2, CSFCCDIFF #2, CSF TP, CSF GLU #2 #### [facility] [address] Globulin (S) [Mass/Vol] 2.4 g/dL [facility] Comment on above: Performed By: #### C SF GLU, CSFCCDIFF, CSF TP #2, CSFCCDIFF #2, CSF TP, CSF GLU #2 #### [facility] [address] Glucose [Mass/Vol] 115 mg/dL High 70-100 [facility] Comment on above: Result Comment: [facility] Glucose Reference Range is dependent on time and content of last meal. Glucose of more than 200 mg/dL in a nonstressed, ambulatory subject supports the diagnosis of Diabetes Mellitus. ADA recommended reference range Performed By: #### C SF GLU, CSFCCDIFF, CSF TP #2, CSFCCDIFF #2, CSF TP, CSF GLU #2 #### [facility] [address] Potassium [Moles/Vol] 3.9 mmol/L Normal 3.5-5.1 [facility] Comment on above: Performed By: #### C SF GLU, CSFCCDIFF, CSF TP #2, CSFCCDIFF #2, CSF TP, CSF GLU #2 #### [facility] [address] Protein [Mass/Vol] 6.7 g/dL Normal 6.4-8.9 [facility] Comment on above: Performed By: #### C SF GLU, CSFCCDIFF, CSF TP #2, CSFCCDIFF #2, CSF TP, CSF GLU #2 #### [facility] [address] Sodium [Moles/Vol] 141 mmol/L Normal 136-145 [facility] Comment on above: Performed By: #### C SF GLU, CSFCCDIFF, CSF TP #2, CSFCCDIFF #2, CSF TP, CSF GLU #2 #### [facility] [address] Urea nitrogen [Mass/Vol] 14 mg/dL Normal 7-25 [facility] Comment on above: Performed By: #### C SF GLU, CSFCCDIFF, CSF TP #2, CSFCCDIFF #2, CSF TP, CSF GLU #2 #### [facility] [address] Copperon 11-04-2022 Copper 117 ug/dL Normal 80-158 [facility] Comment on above: Result Comment: This test was developed and its performance characteristics determined by [employer]. It has not been cleared or approved by the Food and Drug Administration. Detection Limit = 5 Performed at: [address] [id number] Rate Setter: Juan Tejada MD, Phone: [phone] Performed By: #### C SF GLU, CSFCCDIFF, CSF TP #2, CSFCCDIFF #2, CSF TP, CSF GLU #2 #### [facility] [address] [place] [id number] [facility] Creatinine [Mass/volume] in Serum or PlasmaOrdered By: Nicki Duran on 11-04-2022 Creatinine [Mass/Vol] 0.98 mg/dL 0.60-1.20 [facility] Eosinophils Auto (Bld) [#/Vo l]Ordered By: Nicki Duran on 11-04-2022 Eosinophils (Bld) [#/Vol] 0.5 10*3/uL 0.0-0.45 [facility] Eosinophils/100 WBC Auto (Bl d)Ordered By: Nicki Duran on 11-04-2022 Eosinophils/100 WBC (Bld) 3.7 % . [facility] Erythrocyte distribution wid th Auto (RBC) [Ratio]Ordered By: Nicki Duran on 11-04-2022 Erythrocyte distribution width (RBC) [Ratio] 15.3 % 11.9-15.3 [facility] Ferritinon 11-04-2022 Ferritin [Mass/Vol] 25.8 ng/mL Normal 11.0-306.8 [facility] Comment on above: Result Comment: PERF ORMED BY: [place] [address] PATHOLOGIST FRONT END DEVELOPER DESIGNER JUNIOR GREEN M.D. Performed By: #### C SF GLU, CSFCCDIFF, CSF TP #2, CSFCCDIFF #2, CSF TP, CSF GLU #2 #### [facility] [address] [place] [address] Ferritin [Mass/volume] in Se rum or PlasmaOrdered By: Nicki Wooddalton on 11-04-2022 Ferritin [Mass/Vol] 25.8 ng/mL 11.0-306.8 [facility] Free K+L LT Chains, Qn, Son 11-04-2022 Free Cade Light Chains, S 15.9 mg/L Normal 3.3-19.4 [facility] Comment on above: Performed By: #### C SF GLU, CSFCCDIFF, CSF TP #2, CSFCCDIFF #2, CSF TP, CSF GLU #2 #### [facility] [address] [place] [address] Free Lambda Light Chains, S 7.8 mg/L Normal 5.7-26.3 [facility] Comment on above: Performed By: #### C SF GLU, CSFCCDIFF, CSF TP #2, CSFCCDIFF #2, CSF TP, CSF GLU #2 #### [facility] [address] Cade/Lambda Ratio, S 2.04 High 0.26-1.65 [facility] Comment on above: Result Comment: Perf ormed at: CB - [facility] [address], [place], [place] [id number] Rate Setter: Chato Rincon PhD, Phone: [phone] PERFORMED BY: [place] [address] PATHOLOGIST FRONT END DEVELOPER DESIGNER JUNIOR GREEN M.D. Performed By: #### C SF GLU, CSFCCDIFF, CSF TP #2, CSFCCDIFF #2, CSF TP, CSF GLU #2 #### [address] Globulin Calc (S) [Mass/Vol] Ordered By: Nicki Duran on 11-04-2022 Globulin (S) [Mass/Vol] 2.4 g/dL [facility] Glucose [Mass/volume] in Ser um or PlasmaOrdered By: Nicki Duran on 11-04-2022 Glucose [Mass/Vol] 115 mg/dL 70-100 [facility] Comment on above: ADA recommended refe rence rangeRandom Glucose Reference Range is dependent on time and content of last meal. Glucose of more than 200 mg/dL in a nonstressed, ambulatory subject supports the diagnosis of Diabetes Mellitus. Hematocrit Auto (Bld) [Volum e fraction]Ordered By: Nicki Duran on 11-04-2022 Hematocrit (Bld) [Volume fraction] 40.8 % 34.0-46.4 [facility] Hemoglobin [Mass/volume] in BloodOrdered By: Nicki Duarn on 11-04-2022 Hemoglobin (Bld) [Mass/Vol] 13.5 g/dL 11.8-15.4 [facility] IgA [Mass/volume] in Serum o r PlasmaOrdered By: Nicki Duran on 11-04-2022 IgA [Mass/Vol] 92 mg/dL 87-352 [facility] IgG [Mass/volume] in Serum o r PlasmaOrdered By: Nicki Roger on 11-04-2022 IgG [Mass/Vol] 676 mg/dL 586-1602 [facility] IgM [Mass/volume] in Serum o r PlasmaOrdered By: Nicki Roger on 11-04-2022 IgM [Mass/Vol] 105 mg/dL 26-217 [facility] Immunofixation,Serumon 11-04 Immunofixation, Serum Normal . [facility] Comment on above: Result Comment: No m onoclonality detected. Performed By: #### C SF GLU, CSFCCDIFF, CSF TP #2, CSFCCDIFF #2, CSF TP, CSF GLU #2 #### [facility] [address] [id number] [place] Immunoglobulin A, Serum 92 mg/dL Normal 87-352 [facility] Comment on above: Performed By: #### C SF GLU, CSFCCDIFF, CSF TP #2, CSFCCDIFF #2, CSF TP, CSF GLU #2 #### [facility] [address] [place] [address] [place] Immunoglobulin G 676 mg/dL Normal 586-1602 [facility] Comment on above: Performed By: #### C SF GLU, CSFCCDIFF, CSF TP #2, CSFCCDIFF #2, CSF TP, CSF GLU #2 #### [facility] [address] [place] [address] [place] Immunoglobulin M, Serum 105 mg/dL Normal 26-217 [facility] Comment on above: Performed By: #### C SF GLU, CSFCCDIFF, CSF TP #2, CSFCCDIFF #2, CSF TP, CSF GLU #2 #### [facility] [address] [place] [address] [place] Immunoglobulin light chains. kappa.free [Mass/volume] in SerumOrdered By: Nicki Duran on 11-04-2022 Immunoglobulin light chains.kappa.free (S) [Mass/Vol] 15.9 mg/L 3.3-19.4 [facility] Immunoglobulin light chains. kappa.free/Immunoglobulin light chains.lambda.free [MassOrdered By: Nicki Roger on 11-04-2022 Immunoglobulin light chains.kappa.free/Immu noglobulin light chains.lambda.free (S) [Mass ratio] 2.04 0.26-1.65 [facility] Comment on above: Performed at: [address] [id number] Director: Chato Rincon PhD, Phone: [phone] Immunoglobulin light chains. lambda.free [Mass/volume] in Serum or PlasmaOrdered By: Nicki Roger on 11-04-2022 Immunoglobulin light chains.lambda.free [Mass/Vol] 7.8 mg/L 5.7-26.3 [facility] Iron [Mass/volume] in Serum or PlasmaOrdered By: Nicki Duran on 11-04-2022 Iron [Mass/Vol] 55 ug/dL 50-212 [facility] Iron and TIBC Profileon 10-15 % Iron Saturation 14.1 % Low 20-50 [facility] Comment on above: Performed By: #### C SF GLU, CSFCCDIFF, CSF TP #2, CSFCCDIFF #2, CSF TP, CSF GLU #2 #### [facility] [address] [place] [id number] [place] Iron [Mass/Vol] 55 ug/dL Normal 50-212 [facility] Comment on above: Performed By: #### C SF GLU, CSFCCDIFF, CSF TP #2, CSFCCDIFF #2, CSF TP, CSF GLU #2 #### [facility] [address] [place] [id number] [place] Total Iron Binding Capacity 391 ug/dL Normal 255-450 [facility] Comment on above: Performed By: #### C SF GLU, CSFCCDIFF, CSF TP #2, CSFCCDIFF #2, CSF TP, CSF GLU #2 #### [facility] [address] [place] [id number] [place] Transferrin [Mass/Vol] 279 mg/dL Normal 203-362 [facility] Comment on above: Performed By: #### C SF GLU, CSFCCDIFF, CSF TP #2, CSFCCDIFF #2, CSF TP, CSF GLU #2 #### [facility] [address] [place] [id number] [place] Iron binding capacity [Mass/ volume] in Serum or PlasmaOrdered By: Nicki Duran on 11-04-2022 Iron binding capacity [Mass/Vol] 391 ug/dL 255-450 [facility] Iron saturation [Mass Fracti on] in Serum or PlasmaOrdered By: Nicki Duran on 11-04-2022 Iron saturation [Mass fraction] 14.1 % 20-50 [facility] LDH Lactate Dehydrogenaseon 11-04-2022 LDH Lactate Dehydrogenase 153 U/L Normal 140-271 [facility] Comment on above: Performed By: #### C SF GLU, CSFCCDIFF, CSF TP #2, CSFCCDIFF #2, CSF TP, CSF GLU #2 #### [facility] [address] [place] [address] [place] Lactate dehydrogenase [Enzym atic activity/volume] in Serum or Plasma by Lactate to pyOrdered By: Nicki Duran on 11-04-2022 LDH Lactate to pyruvate reaction [Catalytic activity/Vol] 153 U/L 140-271 [facility] Leukocytes [#/volume] correc [place] for nucleated erythrocytes in Blood by Automated counOrdered By: Nicki Duran on 11-04-2022 WBC corrected for nucl RBC Auto (Bld) [#/Vol] 13.6 10*3/uL 3.8-11.6 [facility] Lymphocytes Auto (Bld) [#/Vo l]Ordered By: Nicki Duran on 11-04-2022 Lymphocytes (Bld) [#/Vol] 4.0 10*3/uL 1.00-4.8 [facility] Lymphocytes/100 WBC Auto (Bl d)Ordered By: Nicki Duran on 11-04-2022 Lymphocytes/100 WBC (Bld) 29.2 % . [facility] MCH Auto (RBC) [Entitic mass ]Ordered By: Nicki Duran on 11-04-2022 MCH (RBC) [Entitic mass] 28.4 pg 24.7-34.3 [facility] MCHC Auto (RBC) [Mass/Vol]Or dered By: Nicki Duran on 11-04-2022 MCHC (RBC) [Mass/Vol] 33.1 g/dL 32.0-35.0 [facility] MCV Auto (RBC) [Entitic vol] Ordered By: Nicki Roger on 11-04-2022 MCV (RBC) [Entitic vol] 85.7 fL 80-100 [facility] Monocyte %Ordered By: Nicki Erinn bradley on 11-04-2022 Monocyte % 117 ug/dL 80-158 [facility] Comment on above: This test was develo ped and its performance characteristicsdetermined by LOG607. It has not been cleared orapproved by the Food and Drug Administration. Detection Limit = 5Performed at: [facility] [employer] [id number] Director: Juan Tejada MD, Phone: [phone] Monocytes Auto (Bld) [#/Vol] Ordered By: Nicki Duran on 11-04-2022 Monocytes (Bld) [#/Vol] 0.7 10*3/uL 0.0-0.8 [facility] Monocytes/100 WBC Auto (Bld) Ordered By: Nicki Duran on 11-04-2022 Monocytes/100 WBC (Bld) 5.1 % . [facility] Neutrophils Auto (Bld) [#/Vo l]Ordered By: Nicki Duran on 11-04-2022 Neutrophils (Bld) [#/Vol] 8.3 10*3/uL 1.8-7.7 [facility] Neutrophils/100 WBC Auto (Bl d)Ordered By: Nicki Duran on 11-04-2022 Neutrophils/100 WBC (Bld) 61.3 % . [facility] No Panel InformationOrdered By: Nicki Duran on 11-04-2022 Estimated GFR (CKD-EPI) > 60.0 mL/Min [facility] Creatinine Clearance (Chem 88.00 [facility] Protein Electrophoresis M-Antwan Not observed g/dL Not Observed [facility] Protein Electrophoresis Note See comment . [facility] Comment on above: Protein electrophore sis scan will follow via computer,mail, or seam hammerer delivery.Performed at: [facility] [employer] [place], [place] [id number] Director: Chato Rincon PhD, Phone: [phone] Serum Immunofixation See comment . [facility] Comment on above: No monoclonality det ected. Nucleated erythrocytes [Pres ence] in Blood by Automated countOrdered By: Nicki Duran on 11-04-2022 Nucleated RBC Auto Ql (Bld) 0.2 /100{WBC} 0-0.5 [facility] Platelet mean volume Auto (B ld) [Entitic vol]Ordered By: Nicki Duran on 11-04-2022 Platelet mean volume (Bld) [Entitic vol] 6.9 fL 6.3-10.7 [facility] Platelets Auto (Bld) [#/Vol] Ordered By: Nicki Duran on 11-04-2022 Platelets (Bld) [#/Vol] 385 10*3/uL 150-450 [facility] Potassium [Moles/volume] in Serum or PlasmaOrdered By: Nicki Duran on 11-04-2022 Potassium [Moles/Vol] 3.9 mmol/L 3.5-5.1 [facility] Protein Electrophoresis, Ser umon 11-04-2022 Albumin [Mass/Vol] 3.6 g/dL Normal 2.9-4.4 [facility] Comment on above: Performed By: #### C SF GLU, CSFCCDIFF, CSF TP #2, CSFCCDIFF #2, CSF TP, CSF GLU #2 #### [facility] [address] Albumin/Globulin [Mass ratio] 1.2 {ratio} Normal 0.7-1.7 [facility] Comment on above: Performed By: #### C SF GLU, CSFCCDIFF, CSF TP #2, CSFCCDIFF #2, CSF TP, CSF GLU #2 #### [facility] [address] [place] [address] [place] Eerix-1-Yftwwhnk 0.3 g/dL Normal 0.0-0.4 [facility] Comment on above: Performed By: #### C SF GLU, CSFCCDIFF, CSF TP #2, CSFCCDIFF #2, CSF TP, CSF GLU #2 #### [address] Sxvpg-3-Uumtghlh 0.9 g/dL Normal 0.4-1.0 [facility] Comment on above: Performed By: #### C SF GLU, CSFCCDIFF, CSF TP #2, CSFCCDIFF #2, CSF TP, CSF GLU #2 #### [address] Beta Globulin 1.1 g/dL Normal 0.7-1.3 [facility] Comment on above: Performed By: #### C SF GLU, CSFCCDIFF, CSF TP #2, CSFCCDIFF #2, CSF TP, CSF GLU #2 #### [address] Gamma Globulin 0.8 g/dL Normal 0.4-1.8 [facility] Comment on above: Performed By: #### C SF GLU, CSFCCDIFF, CSF TP #2, CSFCCDIFF #2, CSF TP, CSF GLU #2 #### [address] Globulin (S) [Mass/Vol] 3.0 g/dL Normal 2.2-3.9 [facility] Comment on above: Performed By: #### C SF GLU, CSFCCDIFF, CSF TP #2, CSFCCDIFF #2, CSF TP, CSF GLU #2 #### [address] M-Antwan Not Observed Normal Not Observed [facility] Comment on above: Performed By: #### C SF GLU, CSFCCDIFF, CSF TP #2, CSFCCDIFF #2, CSF TP, CSF GLU #2 #### [address] Protein [Mass/Vol] 6.6 g/dL Normal 6.0-8.5 [facility] Comment on above: Performed By: #### C SF GLU, CSFCCDIFF, CSF TP #2, CSFCCDIFF #2, CSF TP, CSF GLU #2 #### [facility] [address] [place] [address] [place] SPE-Note Normal . [facility] Comment on above: Result Comment: Prot ein electrophoresis scan will follow via computer, mail, or seam hammerer delivery. Performed at: [facility] [address] [id number] Rate Setter: Chato Rincon PhD, Phone: [phone] Performed By: #### C SF GLU, CSFCCDIFF, CSF TP #2, CSFCCDIFF #2, CSF TP, CSF GLU #2 #### [facility] [address] [place] [id number] [place] Protein [Mass/volume] in Ser um or PlasmaOrdered By: Nicki Duran on 11-04-2022 Protein [Mass/Vol] 6.7 g/dL 6.4-8.9 [facility] Protein [Mass/Vol] 6.6 g/dL 6.0-8.5 [facility] RBC Auto (Bld) [#/Vol]Ordere d By: Nicki Duran on 11-04-2022 RBC (Bld) [#/Vol] 4.76 10*6/uL 3.60-5.00 [facility] Serum globulin measurement ( mass/volume)Ordered By: Nicki Duran on 11-04-2022 Globulin (S) [Mass/Vol] 3.0 g/dL 2.2-3.9 [facility] Serum or plasma albumin/glob ulin mass ratioOrdered By: Nicki Duran on 11-04-2022 Albumin/Globulin [Mass ratio] 1.8 {ratio} [facility] Albumin/Globulin [Mass ratio] 1.2 {ratio} 0.7-1.7 [facility] Serum or plasma alpha 1 glob ulin measurement by electrophoresis (mass/volume)Ordered By: Nicki Duran on 11-04-2022 Alpha 1 globulin Elph [Mass/Vol] 0.3 g/dL 0.0-0.4 [facility] Serum or plasma alpha 2 glob ulin measurement by electrophoresis (mass/volume)Ordered By: Nicki Duran on 11-04-2022 Alpha 2 globulin Elph [Mass/Vol] 0.9 g/dL 0.4-1.0 [facility] Serum or plasma anion gap de terminationOrdered By: Nicki Roger on 11-04-2022 Anion gap [Moles/Vol] 11.1 mmol/L 6.0-15.0 [facility] Serum or plasma beta globuli n measurement by electrophoresis (mass/volume)Ordered By: Nicki Duran on 11-04-2022 Beta globulin Elph [Mass/Vol] 1.1 g/dL 0.7-1.3 [facility] Serum or plasma gamma globul in measurement by electrophoresis (mass/volume)Ordered By: Nicki Duran on 11-04-2022 Gamma globulin Elph [Mass/Vol] 0.8 g/dL 0.4-1.8 [facility] Sodium [Moles/volume] in Ser um or PlasmaOrdered By: Nicki Duran on 11-04-2022 Sodium [Moles/Vol] 141 mmol/L 136-145 [facility] Transferrin [Mass/volume] in Serum or PlasmaOrdered By: Nicki Duran on 11-04-2022 Transferrin [Mass/Vol] 279 mg/dL 203-362 [facility] Urea nitrogen [Mass/volume] in Serum or PlasmaOrdered By: Nicki Roger on 11-04-2022 Urea nitrogen [Mass/Vol] 14 mg/dL 7-25 [facility] WBC Auto (Bld) [#/Vol]Ordere d By: Nicki Duran on 11-04-2022 WBC (Bld) [#/Vol] 13.6 10*3/uL 3.8-11.6 [facility] INSULINon 06-30-2022 Insulin 16.0 uIU/mL Normal 2.6-24.9 [facility] Comment on above: Performed By: #### I NSULIN #### [facility] [address] [address] [address] Moriah Schulz CBC AUTO DIFFon 06-28-2022 BASO # 0.1 103/ul Normal 0.0-0.1 [facility] Comment on above: Performed By: #### C BC #### [facility] [address] [place] [address] Dr. Moriah Schulz Basophils/100 WBC (Bld) 0.6 % Normal 0.2-2.0 [facility] Comment on above: Performed By: #### C BC #### [facility] [address] [place] [address] Dr. Moriah Schulz EO # 0.3 103/ul Normal 0.0-0.7 [facility] Comment on above: Performed By: #### C BC #### [facility] [address] [place] [address] Dr. Moriah Schulz Eosinophils/100 WBC (Bld) 3.0 % Normal 0.9-7.0 [facility] Comment on above: Performed By: #### C BC #### [facility] [address] [place] [address] Dr. Moriah Schulz Erythrocyte distribution width (RBC) [Ratio] 14.9 % Normal 11.0-15.0 [facility] Comment on above: Performed By: #### C BC #### [facility] [address] [place] [address] Dr. Moriah Schulz Hematocrit (Bld) [Volume fraction] 36.9 % Normal 36.0-48.0 [facility] Comment on above: Performed By: #### C BC #### [facility] [address] [place] [address] Dr. Moriah Schulz Hemoglobin (Bld) [Mass/Vol] 12.1 g/dL Normal 12.0-16.0 [facility] Comment on above: Performed By: #### C BC #### [facility] [address] [place] [address] Dr. Moriah Schulz IG # 0.03 10e3/ul Normal 0.00-0.03 [facility] Comment on above: Performed By: #### C BC #### [facility] [address] [place] [address] Dr. Moriah Schulz IG % 0.3 % Normal 0.0-0.5 [facility] Comment on above: Performed By: #### C BC #### [facility] [address] [place] [address] Dr. Moriah Schulz LYMPH # 2.8 103/ul Normal 1.2-3.8 [facility] Comment on above: Performed By: #### C BC #### [facility] [address] [place] [address] Dr. Moriah Schulz Lymphocytes/100 WBC (Bld) 29.1 % Normal 20.5-60.0 [facility] Comment on above: Performed By: #### C BC #### [facility] [address] [place] [address] Dr. Moriah Schulz MANUAL DIFF REQ NO Normal [facility] Comment on above: Performed By: #### C BC #### [facility] [address] [place] [address] Dr. Moriah Schulz MCH (RBC) [Entitic mass] 28.5 pg Normal 26.7-34.0 [facility] Comment on above: Performed By: #### C BC #### [facility] [address] [place] [address] Dr. Moriah Schulz MCHC (RBC) [Mass/Vol] 32.8 g/dL Normal 29.9-35.2 [facility] Comment on above: Performed By: #### C BC #### [facility] [address] [place] [address] Dr. Moriah Schulz MCV (RBC) [Entitic vol] 86.8 fL Normal 81.0-99.0 [facility] Comment on above: Performed By: #### C BC #### [facility] [address] [place] [address] Dr. Moriah Schulz MONO # 0.5 103/ul Normal 0.3-0.8 [facility] Comment on above: Performed By: #### C BC #### [facility] [address] [place] [address] Dr. Moriah Schulz Monocytes/100 WBC (Bld) 5.1 % Normal 1.7-12.0 [facility] Comment on above: Performed By: #### C BC #### [facility] [address] [address] [address] Moriah Schulz NEUT # 5.9 103/ul Normal 1.4-6.5 [facility] Comment on above: Performed By: #### C BC #### [facility] [address] [place] [address] Dr. Moriah Schulz Neutrophils/100 WBC (Bld) 61.9 % Normal 43.0-75.0 [facility] Comment on above: Performed By: #### C BC #### [facility] [address] [place] [address] Dr. Moriah Schulz Platelet mean volume (Bld) [Entitic vol] 8.2 fL Critically low 9.5-13.5 [facility] Comment on above: Performed By: #### C BC #### [facility] [address] [place] [address] Dr. Moriah Schulz PLT 280 103/ul Normal 150-450 [facility] Comment on above: Performed By: #### C BC #### [facility] [address] [place] [address] Dr. Moriah Schulz RBC 4.25 106/ul Normal 4.20-5.40 [facility] Comment on above: Performed By: #### C BC #### [facility] [address] [place] [address] Dr. Moriah Schulz WBC 9.6 103/ul Normal 4.0-11.0 [facility] Comment on above: Performed By: #### C BC #### [facility] [address] [place] [address] Dr. Moriah Schulz FREE THYROXINE INDEX T7on FTI 2.01 Normal 1.30-4.50 [facility] Comment on above: Performed By: #### T 7, CMP, LIPID, TSH #### [facility] [address] [place] [address] Dr. Moriah Schulz T3U 30.0 % Normal 30.0-39.0 [facility] Comment on above: Performed By: #### T 7, CMP, LIPID, TSH #### [facility] [address] [place] [address] Dr. Moriah Schulz T4 [Mass/Vol] 6.70 ug/dL Normal 4.80-13.90 [facility] Comment on above: Performed By: #### T 7, CMP, LIPID, TSH #### [facility] [address] [address] [address] Moriah Schulz GLYCOHEMOGLOBIN A1Con 2022 ADA RECOMMENDATION SEE BELOW Normal [facility] Comment on above: Result Comment: ADA RECOMMENDED LIMIT 4.0 - 6.0 ADA THERAPEUTIC TARGET < 7.0 ACTION SUGGESTED > 7.0 Performed By: #### A 1C ####[facility] [id number] [address]Dr. Moriah Schulz HbA1c (Bld) [Mass fraction] 5.2 % Normal 4.5-6.2 [facility] Comment on above: Performed By: #### A 1C ####[facility] [id number] [address]Dr. Moriah Schulz IRONon 06-28-2022 Iron [Mass/Vol] 47.0 ug/dL Critically low 50.0-170.0 [facility] Comment on above: Performed By: #### I SANDY ####[facility] [id number] [place], [place] [address]Dr. Moriah Schulz LIPID PROFILEon 06-28-2022 CHOL-HDL RATIO NORM SEE BELOW Normal [facility] Comment on above: Result Comment: 3.3 - 4.4 LOW RISK 4.4 - 7.1 AVERAGE RISK 7.1 - 11.0 MODERATE RISK >11.0 HIGH RISK Performed By: #### T 7, CMP, LIPID, TSH #### [facility] [address] [place] [address] Dr. Moriah Schulz Cholesterol [Mass/Vol] 260 mg/dL Critically high <=200 [facility] Comment on above: Performed By: #### T 7, CMP, LIPID, TSH #### [facility] [address] [address] [address] Moriah Schulz Cholesterol in HDL [Mass/Vol] 41 mg/dL Normal 40-60 [facility] Comment on above: Performed By: #### T 7, CMP, LIPID, TSH #### [facility] [address] [address] [address] Moriah Schulz Cholesterol in LDL [Mass/Vol] 192.6 mg/dL Normal [facility] [facility] Comment on above: Performed By: #### T 7, CMP, LIPID, TSH #### [facility] [address] [place] [address] Dr. Moriah Schulz Cholesterol.total/Chol esterol in HDL [Mass ratio] 6.3 {ratio} Normal [facility] Comment on above: Performed By: #### T 7, CMP, LIPID, TSH #### [facility] [place] [address] [address] [address] Moriah Schulz HDL NORMAL > or = 60 mg/dl - LO W CARDIOVASCULAR RISK <40 mg/dl - HIGH CARDIOVASCULAR RISK Normal [facility] Comment on above: Performed By: #### T 7, CMP, LIPID, TSH #### [facility] [address] [place] [address] Dr. Moriah Schulz LDL CALC NORMAL SEE BELOW Normal [facility] Comment on above: Result Comment: <100 mg/dl OPTIMAL 100 - 129 mg/dl NEAR OR ABOVE OPTIMAL 130 - 159 mg/dl BORDERLINE HIGH 160 - 189 mg/dl HIGH >190 mg/dl VERY HIGH Performed By: #### T 7, CMP, LIPID, TSH #### [facility] [address] [place] [address] Dr. Moriah Schulz Triglyceride [Mass/Vol] 132 mg/dL Normal <=150 [facility] [place] Comment on above: Performed By: #### T 7, CMP, LIPID, TSH #### [facility] [address] [place] [address] Dr. Moriah Schulz VLDL CALC 26.4 mg/dL Normal [facility] Comment on above: Performed By: #### T 7, CMP, LIPID, TSH #### [facility] [address] [place] [address] Dr. Moriah Schulz PROF 14(COMP METB)on 023 Albumin [Mass/Vol] 3.7 g/dL Normal 3.4-5.0 [facility] Comment on above: Performed By: #### T 7, CMP, LIPID, TSH #### [facility] [address] [address] [address] Moriah Schulz Albumin/Globulin [Mass ratio] 1.0 {ratio} Normal [facility] Comment on above: Performed By: #### T 7, CMP, LIPID, TSH #### [facility] [address] [address] [address] Moriah Schulz ALP [Catalytic activity/Vol] 90 U/L Normal 46-116 [facility] Comment on above: Performed By: #### T 7, CMP, LIPID, TSH #### [facility] [address] [address] [address] Moriah Schulz ALT [Catalytic activity/Vol] 38 U/L Normal 14-59 [facility] Comment on above: Performed By: #### T 7, CMP, LIPID, TSH #### [facility] [address] [address] [address] Moriah Schulz Anion gap [Moles/Vol] 12.4 mmol/L Normal [facility] Comment on above: Performed By: #### T 7, CMP, LIPID, TSH #### [facility] [address] [address] [address] Moriah Schulz AST [Catalytic activity/Vol] 15 U/L Normal 15-37 [facility] Comment on above: Performed By: #### T 7, CMP, LIPID, TSH #### [facility] [address] [address] [address] Moriah Schulz Bilirubin [Mass/Vol] 0.3 mg/dL Normal 0.2-1.0 [facility] Comment on above: Performed By: #### T 7, CMP, LIPID, TSH #### [facility] [address] [place] [address] Dr. Moriah Schulz Calcium [Mass/Vol] 8.8 mg/dL Normal 8.5-10.1 [facility] Comment on above: Performed By: #### T 7, CMP, LIPID, TSH #### [facility] [address] [place] [address] Dr. Moriah Schulz Chloride [Moles/Vol] 101 mmol/L Normal 98-107 [facility] Comment on above: Performed By: #### T 7, CMP, LIPID, TSH #### [facility] [address] [address] [address] Moriah Schulz CO2 [Moles/Vol] 29.2 mmol/L Normal 21.0-32.0 [facility] Comment on above: Performed By: #### T 7, CMP, LIPID, TSH #### [facility] [address] [address] [address] Moriah Schulz Creatinine [Mass/Vol] 0.99 mg/dL Normal 0.55-1.02 [facility] Comment on above: Performed By: #### T 7, CMP, LIPID, TSH #### [facility] [address] [place] [address] Dr. Moriah Schulz EGFR-AF IRISH >60 Normal >=60 [facility] Comment on above: Performed By: #### T 7, CMP, LIPID, TSH #### [facility] [address] [place] [address] Dr. Moriah Schulz EGFR-NON AF IRISH >60 Normal >=60 [facility] Comment on above: Performed By: #### T 7, CMP, LIPID, TSH #### [facility] [address] [place] [address] Dr. Moriah Schulz Globulin (S) [Mass/Vol] 3.7 g/dL Normal [facility] Comment on above: Performed By: #### T 7, CMP, LIPID, TSH #### [facility] [address] [place] [address] Dr. Moriah Schulz Glucose [Mass/Vol] 103 mg/dL Normal [facility] Comment on above: Performed By: #### T 7, CMP, LIPID, TSH #### [facility] [address] [place] [address] Dr. Moriah Schulz Performed By: #### A 1C ####[facility] [address] [address]Dr. Moriah Schulz Potassium [Moles/Vol] 3.6 mmol/L Normal 3.5-5.1 [facility] Comment on above: Performed By: #### T 7, CMP, LIPID, TSH #### [facility] [address] [address] [address] Moriah Schulz Protein [Mass/Vol] 7.4 g/dL Normal 6.4-8.2 [facility] Comment on above: Performed By: #### T 7, CMP, LIPID, TSH #### [facility] [address] [place] [address] Dr. Moriah Schulz Sodium [Moles/Vol] 139 mmol/L Normal 136-145 [facility] Comment on above: Performed By: #### T 7, CMP, LIPID, TSH #### [facility] [address] [place] [address] Dr. Moriah Schulz Urea nitrogen [Mass/Vol] 14.0 mg/dL Normal 7.0-18.0 [facility] Comment on above: Performed By: #### T 7, CMP, LIPID, TSH #### [facility] [address] [place] [address] Dr. Moriah Schulz Urea nitrogen/Creatinine [Mass ratio] 14.1 mg/mg Normal [facility] Comment on above: Performed By: #### T 7, CMP, LIPID, TSH #### [facility] [address] [place] [address] Dr. Moriah Schulz TSHon 06-28-2022 TSH 3.338 uIU/mL Normal 0.358-3.740 [facility] Comment on above: Performed By: #### T 7, CMP, LIPID, TSH #### [facility] [address] [place] [address] Dr. Moriah Schulz Albumin [Mass/volume] in Ser um or PlasmaOrdered By: Jenny Reis on 11-21-2021 Albumin [Mass/Vol] 4.1 g/dL 3.2-5.5 [facility] Basophils Auto (Bld) [#/Vol] Ordered By: Jenny Reis on 11-21-2021 Basophils (Bld) [#/Vol] 0.1 10*3/uL 0.0-0.2 [facility] Basophils/100 WBC Auto (Bld) Ordered By: Jenny Reis on 11-21-2021 Basophils/100 WBC (Bld) 0.8 % . [facility] Blood hemoglobin measurement (mass/volume)Ordered By: Jenny Reis on 11-21-2021 Hemoglobin (Bld) [Mass/Vol] 13.4 g/dL 11.8-15.4 [facility] Blood leukocytes automated c ount (number/volume)Ordered By: Jenny Reis on 11-21-2021 WBC (Bld) [#/Vol] 13.9 10*3/uL 4.5-11.0 [facility] Cholesterol [Mass/volume] in Serum or PlasmaOrdered By: Jenny Reis on 11-21-2021 Cholesterol [Mass/Vol] 240 mg/dL 140-200 [facility] Comment on above: Chol less than 200 m g/dl low risk Chol 201-239 mg/dl borderline risk Chol 240 mg/dl and greater high risk Cholesterol in LDL Calc [Mas s/Vol]Ordered By: Jenny Reis on 11-21-2021 Cholesterol in LDL [Mass/Vol] 143 mg/dL 0-100 [facility] Comment on above: LDL ATP III CLASSIFI CATION LDL less than 100 mg/dL Optimal LDL 100-129 mg/dL Near or above optimal LDL 130-159 mg/dL Borderline high LDL 160-189 mg/dL High LDL greater than 189 mg/dL Very high Cholesterol in VLDL Calc [Ma ss/Vol]Ordered By: Jenny Reis on 11-21-2021 Cholesterol in VLDL [Mass/Vol] 59 mg/dL [facility] Creatinine and Glomerular fi ltration rate.predicted panel (S/P/Bld)Ordered By: Jenny Reis on 11-21-2021 Creatinine [Mass/Vol] 0.99 mg/dL 0.44-1.03 [facility] Eosinophils Auto (Bld) [#/Vo l]Ordered By: Jenny Reis on 11-21-2021 Eosinophils (Bld) [#/Vol] 0.4 10*3/uL 0.0-0.45 [facility] Eosinophils/100 WBC Auto (Bl d)Ordered By: Jenny Reis on 11-21-2021 Eosinophils/100 WBC (Bld) 3.1 % . [facility] Erythrocyte distribution wid th Auto (RBC) [Ratio]Ordered By: Jenny Reis on 11-21-2021 Erythrocyte distribution width (RBC) [Ratio] 15.3 % 11.9-15.3 [facility] Estimated glomerular filtrat ion rate (GFR) non- AmericanOrdered By: Jenny Reis on 11-21-2021 GFR/1.73 sq M.predicted among non-blacks MDRD (S/P/Bld) [Vol rate/Area] > 60 mL/Min [facility] Globulin Calc (S) [Mass/Vol] Ordered By: Jenny Reis on 11-21-2021 Globulin (S) [Mass/Vol] 2.9 g/dL [facility] Glucose mean value [Mass/vol ume] in Blood Estimated from glycated hemoglobinOrdered By: Jenny Reis on 11-21-2021 Average glucose Estimated from glycated hemoglobin (Bld) [Mass/Vol] 128 mg/dL [facility] Hematocrit Auto (Bld) [Volum e fraction]Ordered By: Jenny Reis on 11-21-2021 Hematocrit (Bld) [Volume fraction] 40.5 % 34.0-46.4 [facility] Hemoglobin A1c percentageOrd ered By: Jenny Reis on 11-21-2021 HbA1c (Bld) [Mass fraction] 6.1 % 4.3-5.6 [facility] Comment on above: Increased risk for d iabetes: 5.7 - 6.4 diabetes: >6.4 glycemic control for adults with diabetes: <7.0 Iron [Mass/volume] in Serum or PlasmaOrdered By: Jenny Reis on 11-21-2021 Iron [Mass/Vol] 54 ug/dL 40-150 [facility] Laboratory - Hematology and Cell countsOrdered By: Jenny Reis on 11-21-2021 Nucleated RBC/100 WBC (Bld) [Ratio] 0.1 % 0-0.5 [facility] Lymphocytes Auto (Bld) [#/Vo l]Ordered By: Jenny Reis on 11-21-2021 Lymphocytes (Bld) [#/Vol] 2.6 10*3/uL 1.00-4.8 [facility] Lymphocytes/100 WBC Auto (Bl d)Ordered By: Jenny Reis on 11-21-2021 Lymphocytes/100 WBC (Bld) 18.6 % . [facility] MCH Auto (RBC) [Entitic mass ]Ordered By: Jenny Reis on 11-21-2021 MCH (RBC) [Entitic mass] 28.2 pg 24.7-34.3 [facility] MCHC Auto (RBC) [Mass/Vol]Or dered By: Jenny Reis on 11-21-2021 MCHC (RBC) [Mass/Vol] 33.2 g/dL 32.0-35.0 [facility] MCV Auto (RBC) [Entitic vol] Ordered By: Jenny Reis on 11-21-2021 MCV (RBC) [Entitic vol] 85.2 fL 80-100 [facility] Monocytes Auto (Bld) [#/Vol] Ordered By: Jenny Reis on 11-21-2021 Monocytes (Bld) [#/Vol] 0.7 10*3/uL 0.0-0.8 [facility] Monocytes/100 WBC Auto (Bld) Ordered By: Jenny Reis on 11-21-2021 Monocytes/100 WBC (Bld) 4.7 % . [facility] Neutrophils Auto (Bld) [#/Vo l]Ordered By: Jenny Reis on 11-21-2021 Neutrophils (Bld) [#/Vol] 10.1 10*3/uL 1.8-7.7 [facility] Neutrophils/100 WBC Auto (Bl d)Ordered By: Jenny Reis on 11-21-2021 Neutrophils/100 WBC (Bld) 72.8 % . [facility] No Panel InformationOrdered By: Jenny Reis on 11-21-2021 Estimated GFR () > 60 mL/Min [facility] Comment on above: GFR estimated refere nce range: According to KDOQI guidelines, <60 ml/min/1.73m2 is sufficient to diagnose a patient with chronic kidney disease. Pharmacy Creatinine Clearance (Chem N/A [facility] Platelet mean volume Auto (B ld) [Entitic vol]Ordered By: Jenny Reis on 11-21-2021 Platelet mean volume (Bld) [Entitic vol] 6.4 fL 6.3-10.7 [facility] Platelets Auto (Bld) [#/Vol] Ordered By: Jenny Reis on 11-21-2021 Platelets (Bld) [#/Vol] 467 10*3/uL 150-450 [facility] Protein [Mass/volume] in Ser um or PlasmaOrdered By: Jenny Reis on 11-21-2021 Protein [Mass/Vol] 7.0 g/dL 6.1-7.9 [facility] RBC Auto (Bld) [#/Vol]Ordere d By: Jenny Reis on 11-21-2021 RBC (Bld) [#/Vol] 4.75 10*6/uL 3.60-5.00 [facility] Serum or plasma alanine henderson otransferase measurement without P-5'-P (enzymatic activiOrdered By: Jenny Reis on 11-21-2021 ALT No additional P-5'-P [Catalytic activity/Vol] 22 U/L 10-60 [facility] Serum or plasma albumin/glob ulin mass ratioOrdered By: Jenny Reis on 11-21-2021 Albumin/Globulin [Mass ratio] 1.4 {ratio} [facility] Serum or plasma alkaline nataliia sphatase measurement (enzymatic activity/volume)Ordered By: Jenny Reis on 11-21-2021 ALP [Catalytic activity/Vol] 84 U/L 32-92 [facility] Serum or plasma anion gap de terminationOrdered By: Jenny Reis on 11-21-2021 Anion gap [Moles/Vol] 15.1 mmol/L 6.0-15.0 [facility] Serum or plasma aspartate am inotransferase measurement (enzymatic activity/volume)Ordered By: Jenny Reis on 11-21-2021 AST [Catalytic activity/Vol] 22 U/L 10-42 [facility] Serum or plasma calcium everardo urement (mass/volume)Ordered By: Jenny Reis on 11-21-2021 Calcium [Mass/Vol] 9.0 mg/dL 8.2-10.2 [facility] Serum or plasma chloride jero surement (moles/volume)Ordered By: Jenny Reis on 11-21-2021 Chloride [Moles/Vol] 101 mmol/L 95-114 [facility] Serum or plasma glucose everardo urement (mass/volume)Ordered By: Jenny Reis on 11-21-2021 Glucose [Mass/Vol] 102 mg/dL 70-100 [facility] Comment on above: ADA recommended refe rence range Random Glucose Reference Range is dependent on time and content of last meal. Glucose of more than 200 mg/dL in a nonstressed, ambulatory subject supports the diagnosis of Diabetes Mellitus. Serum or plasma high density lipoprotein (HDL) cholesterol measurementOrdered By: Jenny Reis on 11-21-2021 Cholesterol in HDL [Mass/Vol] 37 mg/dL 35-85 [facility] Comment on above: HDL CHOL ATP-III CLA SSIFICATION Cardiovascular Risk HDL > or equal to 60 mg/dL LOW HDL < 40 mg/dL HIGH Serum or plasma potassium me asurement (moles/volume)Ordered By: Jenny Reis on 11-21-2021 Potassium [Moles/Vol] 3.9 mmol/L 3.5-5.1 [facility] Serum or plasma sodium measu rement (moles/volume)Ordered By: Jenny Reis on 11-21-2021 Sodium [Moles/Vol] 135 mmol/L 136-146 [facility] Serum or plasma total biliru bin measurement (mass/volume)Ordered By: Jenny Reis on 11-21-2021 Bilirubin [Mass/Vol] 0.6 mg/dL 0.3-1.2 [facility] Serum or plasma total carbon dioxide measurement (moles/volume)Ordered By: Jenny Reis on 11-21-2021 CO2 [Moles/Vol] 22.8 mmol/L 22.0-30.0 [facility] Serum or plasma total choles terol/high density lipoprotein (HDL) cholesterol mass ratOrdered By: Jenny Reis on 11-21-2021 Cholesterol.total/Chol esterol in HDL [Mass ratio] 6.5 {ratio} <5.0 [facility] Serum or plasma urea nitroge n measurement (mass/volume)Ordered By: Jenny Reis on 11-21-2021 Urea nitrogen [Mass/Vol] 10 mg/dL 9-23 [facility] Triglyceride [Mass/volume] i n Serum or PlasmaOrdered By: Jenny Reis on 11-21-2021 Triglyceride [Mass/Vol] 299 mg/dL 35-149 [facility] Comment on above: TRIG ATP III CLASSIF ICATION TRIG less than 150 mg/dL Normal TRIG 150-199 mg/dL Borderline high TRIG 200-500 mg/dL High TRIG greater than 500 mg/dL Very high Standard traceable to the Center for Disease Conrtrol and Prevention (CDC) test method. CBC AUTO DIFFon 08-12-2021 BASO # 0.1 103/ul Normal 0.0-0.1 [facility] Comment on above: Performed By: #### C BC ####[facility] [address] [address]Dr. Moriah Schulz Basophils/100 WBC (Bld) 0.6 % Normal 0.2-2.0 [facility] Comment on above: Performed By: #### C BC ####[facility] [address] [address]Dr. Inatrang Schulz EO # 0.3 103/ul Normal 0.0-0.7 [facility] Comment on above: Performed By: #### C BC ####[facility] [address] [place], [place] [address]Dr. Moriah Schulz Eosinophils/100 WBC (Bld) 2.4 % Normal 0.9-7.0 [facility] Comment on above: Performed By: #### C BC ####[facility] [address] [address]Dr. Moriah Schulz Erythrocyte distribution width (RBC) [Ratio] 13.4 % Normal 11.0-15.0 [facility] Comment on above: Performed By: #### C BC ####[facility] [address] [place], [place] [address]Dr. Moriah Schulz Hematocrit (Bld) [Volume fraction] 38.5 % Normal 36.0-48.0 [facility] Comment on above: Performed By: #### C BC ####[facility] [address] [address]Dr. Moriah Schulz Hemoglobin (Bld) [Mass/Vol] 12.4 g/dL Normal 12.0-16.0 [facility] Comment on above: Performed By: #### C BC ####[facility] [address] [address]Dr. Moriah Schulz IG # 0.05 10e3/ul Critically high 0.00-0.03 [facility] Comment on above: Performed By: #### C BC ####[facility] [address] [place], [place] [address]Dr. Moriah Schulz IG % 0.4 % Normal 0.0-0.5 [facility] Comment on above: Performed By: #### C BC ####[facility] [address] [place], [place] [address]Dr. Moriah Schulz LYMPH # 3.3 103/ul Normal 1.2-3.8 [facility] Comment on above: Performed By: #### C BC ####[facility] [address] [place], [place] [address]Dr. Moriah Schulz Lymphocytes/100 WBC (Bld) 24.0 % Normal 20.5-60.0 [facility] Comment on above: Performed By: #### C BC ####[facility] [address] [place], [place] [address]Dr. Moriah Schulz MANUAL DIFF REQ NO Normal [facility] Comment on above: Performed By: #### C BC ####[facility] [address] [place], [place] [address]Dr. Moriah Schulz MCH (RBC) [Entitic mass] 28.6 pg Normal 26.7-34.0 [facility] Comment on above: Performed By: #### C BC ####[facility] [address] [place], [place] [address]Dr. Moriah Schulz MCHC (RBC) [Mass/Vol] 32.2 g/dL Normal 29.9-35.2 [facility] Comment on above: Performed By: #### C BC ####[facility] [address] [id number]. Moriah Schulz MCV (RBC) [Entitic vol] 88.9 fL Normal 81.0-99.0 [facility] Comment on above: Performed By: #### C BC ####[facility] [address] [id number]. Moriah Schulz MONO # 0.7 103/ul Normal 0.3-0.8 [facility] Comment on above: Performed By: #### C BC ####[facility] [address] [id number]. Moriah Schulz Monocytes/100 WBC (Bld) 5.2 % Normal 1.7-12.0 [facility] Comment on above: Performed By: #### C BC ####[facility] [address] [place], [place] [address]Dr. Moriah Schulz NEUT # 9.1 103/ul Critically high 1.4-6.5 [facility] Comment on above: Performed By: #### C BC ####[facility] [id number] [place], [place] [id number]. Moriah Schulz Neutrophils/100 WBC (Bld) 67.4 % Normal 43.0-75.0 [facility] Comment on above: Performed By: #### C BC ####[facility] [address] [place], [place] [id number]. Moriah Schulz Platelet mean volume (Bld) [Entitic vol] 8.4 fL Critically low 9.5-13.5 [facility] Comment on above: Performed By: #### C BC ####[facility] [address] [id number]. Moriah Schulz PLT 358 103/ul Normal 150-450 [facility] Comment on above: Performed By: #### C BC ####[facility] [address] [id number]. Moriah Schulz RBC 4.33 106/ul Normal 4.20-5.40 [facility] Comment on above: Performed By: #### C BC ####[facility] [address] [place], [place] [address]RbAdrienne Schulz WBC 13.6 103/ul Critically high 4.0-11.0 [facility] Comment on above: Performed By: #### C BC ####[facility] [address] [place], [place] [address]NqAdrienne Schulz [facility]16 SARS-CoV-2 (COVID-19) RNA TONY+probe Ql (Unsp spec) Not detected Normal NOT DETECTED [facility] Comment on above: Result Comment: When diagnostic testing is negative, the possibility of a false negative should be considered in the context of a patient's recent exposures and the presence of clinical signs and symptoms consistent with SARS-CoV-2. This test is not yet approved or cleared by the [place] FDA. When there are no FDA-approved or cleared tests available, and other criteria are met, FDA can make tests available under an emergency access mechanism called an Emergency Use Authorization (EUA). The EUA for this test is supported by the [place] of Health and Human Service's declaration that circumstances exist to justify the emergency use of in vitro diagnostics for the detection and/or diagnosis of the virus that causes COVID-19. This EUA will remain in effect for the duration of the COVID-19 declaration justifying emergency of IVDs, unless it is terminated or revoked by the FDA (after which the test may no longer be used). Performed By: #### C VDTB #### [facility] Laboratory [address] [place] [address] Dr. Moriah Schulz ER URINE PROFILEon 2 Bilirubin Ql (U) Negative Normal NEGATIVE [facility] Comment on above: Performed By: #### E CHIN RANKIN #### [facility] Laboratory [address] [place] [address] Dr. Moriah Schulz Clarity (U) CLEAR Normal CLEAR The [facility] Comment on above: Performed By: #### E CHIN RANKIN #### [facility] [address] [place] [address] Dr. Moriah Schulz Color (U) YELLOW Normal YELLOW The [facility] Comment on above: Performed By: #### E RUR, UMICRO #### [facility] [address] [place] [address] Dr. Moriah STAFFORD A micrscopic examina tion will be performed if indicated. Normal The [facility] Comment on above: Performed By: #### RAMON ROGERRO #### [facility] [address] [place] [address] Dr. Moriah Schulz Glucose Ql (U) Negative Normal NEGATIVE The [facility] Comment on above: Performed By: #### Moshe RANKIN UMICRO #### [facility] [address] [place] [address] Dr. Moriah Schulz Hemoglobin Ql (U) SMALL Abnormal NEGATIVE The [facility] Comment on above: Performed By: #### Moshe RANKIN UMICRO #### [facility] [address] [place] [address] Dr. Moriah Schulz Ketones Ql (U) Negative Normal NEGATIVE The [facility] Comment on above: Performed By: #### Moshe RANKIN UMICRO #### [facility] [address] [place] [address] Dr. Moriah Schulz LEUKOCYTES Negative Normal NEGATIVE [facility] Comment on above: Performed By: #### RAMON ROGERRO #### [facility] [address] [place] [address] Dr. Moriah Schulz Nitrite Ql (U) Negative Normal NEGATIVE The [facility] Comment on above: Performed By: #### CHRISTIAN ROGERICRO #### [facility] [address] [place] [address] Dr. Moriah Schulz pH (U) 5.5 [pH] Normal 5-9 The [facility] Comment on above: Performed By: #### RAMON ROGERRO #### [facility] [address] [place] [address] Dr. Moriah Schulz SPEC GRAVITY >=1.030 Abnormal 1.005-<=1.0 25 The [facility] Comment on above: Performed By: #### RAMON ROGERRO #### [facility] [address] [place] [address] Dr. Moriah Schulz UA PROTEIN Negative Normal NEGATIVE/ TRACE The [facility] Comment on above: Performed By: #### CHIN ROGER #### [facility] [address] [place] [address] Dr. Moriah Schulz UR MICRO IND INDICATED Normal [facility] Comment on above: Performed By: #### CHIN ROGER #### [facility] [address] [place] [address] Dr. Moriah Schulz Urobilinogen Qn (U) 0.2 {Hanny'U}/dL Normal 0.2 - 1. 0 [facility] Comment on above: Performed By: #### CHIN ROGER #### [facility] [address] [place] [address] Dr. Moriah Schulz INFLUENZA A AND B AGon 08-12 [facility] SEE BELOW Normal [facility] Comment on above: Result Comment: Nega tive for Flu A protein angiten. Infection due to Flu A cannot be ruled out. Flu A angiten in the sample may be below the detection limit of the test. Performed By: #### I NFLUAB #### [facility] [address] [place] [address] Dr. Moriah Schulz INFLUBNEGH SEE BELOW Normal [facility] Comment on above: Result Comment: Nega tive for Flu B protein antigen. Infection due to Flu B cannot be ruled out. Flu B antigen in the sample may be below the detection limit of the test. Performed By: #### I NFLUAB #### [facility] [address] [place] [address] Dr. Moriah Schulz INFLUENZA A AG Negative Normal NEGATIVE SEE COMMENT [facility] Comment on above: Performed By: #### I NFLUAB #### [facility] [address] [place] [address] Dr. Moriah Schulz INFLUENZA B AG Negative Normal NEGATIVE SEE COMMENT [facility] Comment on above: Performed By: #### I NFLUAB #### [facility] [address] [place] [address] Dr. Moriah Schulz INTERNAL CONTROLS Within Normal Limits Normal Wi thin Normal Limits [facility] Comment on above: Performed By: #### I NFLUAB #### [facility] [address] [place], [place] [address] Dr. Moriah Schulz PROF 14(COMP METB)on 022 Albumin [Mass/Vol] 3.5 g/dL Normal 3.4-5.0 [facility] Comment on above: Performed By: #### C MP ####[facility] [address] [place] [id number] Schulz Albumin/Globulin [Mass ratio] 1.0 {ratio} Normal [facility] Comment on above: Performed By: #### C MP ####[facility] [address] [place] [address]DrAdrienne Schulz ALP [Catalytic activity/Vol] 101 U/L Normal 46-116 [facility] Comment on above: Performed By: #### C MP ####[facility] [address] [place] [address]DrAdrienne Schulz ALT [Catalytic activity/Vol] 25 U/L Normal 14-59 [facility] Comment on above: Performed By: #### C MP ####[facility] [address] [place] [address]DrAdrienne Schulz Anion gap [Moles/Vol] 11.4 mmol/L Normal [facility] Comment on above: Performed By: #### C MP ####[facility] [address] [place] [address]DrAdrienne Schulz AST [Catalytic activity/Vol] 11 U/L Critically low 15-37 [facility] Comment on above: Performed By: #### C MP ####[facility] [address] [place] [phone] Schulz Bilirubin [Mass/Vol] 0.3 mg/dL Normal 0.2-1.0 The [facility] Comment on above: Performed By: #### C MP ####[facility] [address] [place] [phone] Schulz Calcium [Mass/Vol] 8.9 mg/dL Normal 8.5-10.1 The [facility] Comment on above: Performed By: #### C MP ####[facility] [address] [place] [address]Dr. Moriah Schulz Chloride [Moles/Vol] 105 mmol/L Normal 98-107 [facility] Comment on above: Performed By: #### C MP ####[facility] [address] [place] [address]Dr. Moriah Schulz CO2 [Moles/Vol] 27.3 mmol/L Normal 21.0-32.0 The [facility] Comment on above: Performed By: #### C MP ####[facility] [address] [place], [place] [address]Dr. Moriah Schulz Creatinine [Mass/Vol] 0.91 mg/dL Normal 0.55-1.02 The [facility] Comment on above: Performed By: #### C MP ####[facility] [address] [place], [place] [address]Dr. Moriah Schulz EGFR-AF IRISH >60 Normal >=60 The [facility] Comment on above: Performed By: #### C MP ####[facility] [address] [place], [place] [address]Dr. Moriah Schulz EGFR-NON AF IRISH >60 Normal >=60 The [facility] Comment on above: Performed By: #### C MP ####[facility] [address] [place], [place] [address]Dr. Moriah Schulz Globulin (S) [Mass/Vol] 3.5 g/dL Normal The [facility] Comment on above: Performed By: #### C MP ####[facility] [address] [place], [place] [address]Dr. Moriah Schulz Glucose [Mass/Vol] 104 mg/dL Normal 74-106 The [facility] Comment on above: Performed By: #### C MP ####[facility] [address] [place], [place] [address]Dr. Moriah Schulz Potassium [Moles/Vol] 3.7 mmol/L Normal 3.5-5.1 The [facility] Comment on above: Performed By: #### C MP ####[facility] [address] [place] [address]Dr. Moriah Schulz Protein [Mass/Vol] 7.0 g/dL Normal 6.4-8.2 The [facility] Comment on above: Performed By: #### C MP ####[facility] [address] [place] [address]Dr. Moriah Schulz Sodium [Moles/Vol] 140 mmol/L Normal 136-145 The [facility] Comment on above: Performed By: #### C MP ####[facility] [address] [place] [address]Dr. Moriah Schulz Urea nitrogen [Mass/Vol] 15.0 mg/dL Normal 7.0-18.0 The [facility] Comment on above: Performed By: #### C MP ####[facility] [address] [place] [address]Dr. Inatrang Schulz Urea nitrogen/Creatinine [Mass ratio] 16.5 mg/mg Normal The [facility] Comment on above: Performed By: #### C MP ####[facility] [address] [place], [place] [address]Dr. Moriah Zeus URINE MICROSCOPIC ONLYon BACTERIA TRACE Abnormal NONE SEEN The [facility] Comment on above: Performed By: #### RAMON ROGERRO ####[facility] [address] [place] [address]Dr. Moriah Schulz Bacteria identified Cx Nom (U) NOT INDICATED Normal The [facility] Comment on above: Performed By: #### RAMON ROGERRO ####[facility] [address] [place], [place] [address]Dr. Moriah Schulz CAST NONE SEEN Normal NONE SEEN The [facility] Comment on above: Performed By: #### RAMON ROGERRO ####[facility] [address] [place], [place] [address]Dr. Moriah Schulz Crystals LM Nom (Urine sed) NONE SEEN Normal NONE SEEN The [facility] Comment on above: Performed By: #### RAMON ROGERRO ####[facility] [address] [place] [phone]. Moriah Schulz Epithelial cells LM Ql (Urine sed) MODERATE Abnormal NONE SEEN /RARE The [facility] Comment on above: Performed By: #### CHIN ROGER ####[facility] [address] [place] [phone]. Moriah Schulz MUCOUS NONE SEEN Normal NONE SEEN The [facility] Comment on above: Performed By: #### CHIN ROGER ####[facility] [address] [place] [phone]. Moriah Schulz RBC 2-5 Abnormal 0-2 The [facility] Comment on above: Performed By: #### CHIN ROGER ####[facility] [address] [place] [address]Dr. Moriah Schulz WBC 2-5 Abnormal NONE SEEN The [facility] Comment on above: Performed By: #### CHIN ROGER ####[facility] [address] [place] [phone]. Moriah Schulz XR CHEST 1 Von 08-12-2021 XR CHEST 1 V EXAM: XR CHEST 1 V a t 1414 hours HISTORY: COUGH COMPARISON: 08/13/2020 TECHNIQUE: AP upright portable chest x-ray FINDINGS: Heart is not enlarged and the vasculature is not distended. No acute infiltrate, effusion or pneumothorax is identified. The study slightly limited by shallow inspiration. IMPRESSION: No acute infiltrate or evidence of cardiac decompensation. The overall appearance of the chest has not changed significantly. Electronically authenticated by: ANA LAURA PARKER Date: 2021-08-12 15:05 Normal [facility] Q - VARICELLA-ZOSTER AB (IGG )on 07-10-2021 VARICELLA ZOSTER VIRUS ANTIBODY (IGG) 1373.00 index Normal [facility] [employer] Comment on above: Order Comment: [facility] performed at: [facility], [facility], [address] [place] [address], [address] [place] [address], [id number], Asset Protection Associate: Cresencio Bella MD [facility] Collection Date/Time: [id number] [facility] Results Received Date/Time: [facility] Reported Date/Time: Result Comment: Inde x Interpretation --------- <135.00 Negative - Antibody not detected 135.00 - 164.99 Equivocal > or = 165.00 Positive - Antibody detected A positive result indicates that the patient has antibody to VZV but does not differentiate between an active or past infection. The clinical diagnosis must be interpreted in conjunction with the clinical signs and symptoms of the patient. This assay reliably measures immunity due to previous infection but may not be sensitive enough to detect antibodies induced by vaccination. Thus, a negative result in a vaccinated individual does not necessarily indicate susceptibility to VZV infection. A more sensitive test for vaccination-induced immunity is Varicella Zoster Virus Antibody Immunity Screen, ACIF. Performed By: #### 4 [id number] #### [facility] [address] [place] [address] Coding Summary.on 08-07-2020 Coding Summary. [id number] Gh0bWw +PGhlYWQ+GV4ZQMPfQ84xlIDyi T8XX2vYCZ7NBBJNODHDTR2GGT4 gePR8LTujM3CtqpXl ZqmfjDCsRH59DNg6DKZ1bIfdQI aqkD7awTIkK4x6BkPsQI47oQ24 AJjsHPTxShV5IaYxicyzvZXs Z9uvBfAfuMLwUch+PHRhYmxlIH yuNDMsVZkoBWByVbTxdMvtAV3s Pp9lUXXkNZVffTjxaHNiLzAw e9fxEUKlECegRW6ztZgtX4PprV P2NWZpn0p0Ns42dOG+PHRkIHN0 yTtsRDnnz229VeCel6zvMQA5 lEJeCGjpJNV9G06ge6C9AJGnTE NkNRV4gRI2eC4sjAcsxctkN3Qy rSLxTqA9DGI0cHNiiK2xrSav tchjsH5iDvr+B73HNR5SOURZIK 1GQvk1L8GcZxkxoUI+ET21JBIa OG29bHItwSFpe7kqlFt8VwDe WQZaFDL7jPnkNJkse6OaOTPyO1 2amBAub4G4KIPabYqpeUHpLzFj wTM8tO4bKSjblaydl8krnmna Fkayl6ovxt94lB36G75xKQkaOQ DkRTS9XXXoFGWzjSbrhr1plL0l Ii8+HQjht6apy6fwmQd1NvSz NVZwayMjoWnhTVL8b2NtZg17K8 SjdSwos1AeFan3yl78bXCtl1P1 xNL6VBlkHFCzqO1xUGufNyU3 TCTdFgXehM43bCVfNPagMy7nxL nnnAbsRM4cKBAgjjruZATqpG6n SXIkeULvnBqnPK8cHSRfacxl z565RnNvALE8SSBwiPRqU6AicI 0aMfKnDBQtGBPnQ7UrkVWbLJjp U869SZbsOnC4VNZsshZzR9Ix OVJzlQprSaF1e7D4Yb5Ha8Cbny qsZCH5OEhlUFV8FwH8KnCkMfM3 P0TfKyv7HTSelTosAC8rD4Bq DXDqlvpfraclrFE0TDGnKVQcjD 09yVSiDBroYg6fg3S0g702ZCOx XZQzlV84Sy1zhNzfUGXuhGVS iX0gqlptx5ldypadXwBuRQPmVW n4LGo9NQKecJowHdErCNG1PaN6 VKP9zORuqL8chXftbyjelS9o Oyc+Z46fxB4bRPY0RVQ8vigtDX AgbjUoRL61YO02H2AoDutiqLLc bGU+MCMyxeYfcNcpLQ1tMjDg u1zvv5SaJGccF2LjCCCdAMnoNc z1CHLuQKA1tRD6lI3vWMUySHye p7B0uYC7U0GmhiOgxj7nl9yk RGJzXDioR90guFRkp5V8HBFinB D2WWLedMfoYpBxbA38Deh+PGNv uRnwi8SjFkpeu8dpp4hklAt5 JdQoPEEwynOotRdnTHU1m2ZpVs 21E89fYUjeOZSpFQOmMYXiZEIi mLlnxr3dxI8lDo8+PGNvbCB3 wLH8zX7dJDChJcF7PWfeJ882Qb GonVTkYdrma4vcr5muhTq6BaGv ULGjsbBmlGetGBQ6f2DhGp83 U43iZVbvBHViCABpYWKlXKQarS acmj7zjM4lZk9+PS6uo1tlpc54 nQ99hUI+SNZiIGH4eXzsJSgn JJWjiW7nADwyJcV9HKKjOkCqaV 61hHUjHAsuDv0euVejwGanNU1y MWRrihgif938PaCri9fqPERf iGVoRQjlNAX2L25uc8F1VWVqPZ OgINT9dPS4kZ9gcMnteuqehVLx yBcdzvTlfZqdUZlcYAzlW594 IHRvcDsnPlBhdGllbnQgTmFtZT g5C7IpPdp7IFMxtXgqEO8mxGOm TCiyQc8yyGofoJtxKF2xOEFo fbfzw909IqFnv4ddELMdgFVnZE ukQHW3A35pj2G2BKMfYRBmQEB0 iSU9iA1dvRdzecvziGAhrScw ytAvrMytEAgdGEfvJ896XTQzhZ tdCyEewkIfPXYhxLK9NJ40ER24 cBKxr6J6oZA0F6MiCVVwyhos thblmRD9LSTzWYIveZ11Ps9knT ufSf8iDKOrXKT0DYTjtPOuE8Bc xX3aEoXaALTpSMQyZ4AemCJi WRytX227KNkoUbC5AXOsmwEtD7 OvPCVieCeoYsH5h7I9Gd6CM0P2 LW20HU93aNKfi0E8sWB8G6Ie KRNjcyaokzrahGH0GXNwJVHteZ 33Ly4csLttSo5tSQThLZX8EHQv eJLfL0RitY7gPpVbDMHpTBJb S7HkfCSmJOyaL593TJcfBrQ8ZQ OtaeYiM9QuGDBarYpxDhI8s8M4 Jx6VKWr5XN22GV12qBVqt7W0 mAF8T4AnJXKkbuoagopmaZO2MC AwOWGhgV44Ri3nmFotJg7uMMAt JAY2XYUdtDPzV6CbyX2zNmCu NMTiMFWcO3FqzEFcYXlkL308UO eaKjN3KRAtmfQjH4WrRAVdnPwn TxL9d0D4Xc3MOAAlNR36MFI0 fMB0AE23GD09I9ZkZuboqDTplT U+PHRhYmxlIHdpZHRoPScxMDAl LgRsmFgrTQ2sDe0qCRJkCGBw gCdmvLJmAmAuk3jvELNuVDeeQE 1cqLttB0RwqTC4OPTwg0j8Tc62 J94qI2OpiBQ+NANntKP1xRT4 vA1jOmSrYzG9HFzyF701KfVpzM TiNtnbt2uwe7pkfDw9RiJ8PMMa pzYfmEmuKKB5y0QoUe79X70b IHdpZHRoPSIxNSUiIHZhbGlnbj 4aqW0sGq2+RTJqyKN0eFL8gK2b ZwIvHkH2NRkqS668DpTszPTz Ewqil2uts1ikgAf1VtHeTTPnbv ZfmMvxQRI6x9SpJq24F4YrbBwr y5OmWha0hk15zOTas3I2gDE2 I4PiONYxpyjmvKHfgZmwJD8hSV YcbkpvWMOexI1mCWCfT1s7PvLk GaC7VYyrJ5BhhpH0MDOsmEGm UCbiOPS3T43sy7A7WLQzXLHdFJ Q9iDZ9uD4mjMmcijjlgBCvqWhg ulSuiUhyRAobUVxxA292NGIi hEsaQXKanE5gIDIjqFNsoZvbUD 3iZYPbyrqkGrOOBLegIK3ZXzOO BMK8X2KgHze6DZYgcUfoQG8z pSJeNOpqTj3ebVhzjRcgYH7jDK WcfrypIGXcoZ5iJWTomMMbrVwf CL2sHCNqlccdn038SnVvOUD3 FMMoxFCqT1QghQ5cRhZpPZAlPE KbD1AghYVeVQssA899PSxeReM3 WKWbceHfD2BwQZVgrChgLeA6 f3I8Lb5yBu2rLA7uEXqsQI81WZ 95cSZor1Q0rEF4E0MpYKIxikhg wlsakPK7MZOwMGOwlR80fGEf XDpkXo8lo0X8c911JEXkZSRfmL 92Iq9piLsvUJQsxHOLbZ8dtbze q8cpadvxTaOhDTHjKYn3UFk8 NZTbgZbfUxWcFCI0PtU8XNK9hF PvtT9moBtfpddybE0yIvn+Mzkg PJSxzxA3O8SfMwm0PQQlyJsz GL4dtZRuUNfsAn3kpBdmgYojPP 3yXCNtgeqyXDOhbC9cHJUinJEn hCeoDC0iTJFzwhawo149BeYv ALU7VOBbfYAaH9TlbP2pMdAjDK JkCMHhU4VypAExUHwiV987MUao QcO6UHPfvxCzO9NtRYZagJon PhI6z0W0Zn0CQD9vvRM0A2LfIj h5TYBkaRwzMX0bdZKaOMmtAa0u aMnhpYbfON3gQLCgxbsnGOGk tS6aPZRqrZKzvOsvMD1aSLCzdp lnf356PbVmOYV9ZPEdbCNlA2Xj rI8cOrAqEETbBBNtZ5ZdlRQi GFpuD163VUorNpA7QDFkjwYbH3 DjQAXzbCofTeS0h1Z3Ii4EcGEm W4DbW5z1Z1TzHviyjNF+PC90 BVViKD13wDAhfUAep0xznBy6Ry NiNFAzFQX2pRmtHCbxa4VvIGGv I19abXDkz7Z0AQSgqVxorKCu MjHrdXW9kV0hWCtnawymh0pmjw vaHiire2hsus69oZ72P83oVLoh RROwZLFcDDNxLBJseCzhsh7c mJ2aGi6+KMDijJM3sJW6fP3xAy LdSzB5MDijL882MvWmmYZwHmil p9avs2hsyIl6QgDrACCdgcMm mXhcJVO8q0PeQh83G37bASpuJH WbSUWoSKVpJNXqsXmjxp3neY8g Ii8+PN7om8ozyz20iZ80pED+ VBAjRYJ6aQyoJKvnLQHeiO3dCU bfIxO3VRJnTrDfrW49aYIhBUdf Lx3csSfysAwuMC3zFMOdwgcf p487ZuVjl7vbGEHdvRNgLRarZK W7E81pz5P4ENBdNEJuJNY5hMD4 pX8yfUubqvjvsKMnyUjqcrRu uXxyLHxgYCfnJ370WJGoiAsdVy HocDOlI0zpxoYCOJ4hWklkcDQ+ JXRyPFR7uTwxQWbvJUQrjQ4g IPDwU2r7EuNkXtU6XDwzL8Xukq W9WNEwaSHnMQVyzLCBtD1bjuqb x8exjjwiZsNzXVPrZCh8WDc5 MNKrbOloAkMpUAU7AxU4OXA3bS TfeE6ocYqcpryldQ8oYac+RklO OjwvdGQ+OKLxGKK0tBdrODum SIShpX9nFWKyL1h5QnCqDiJ2LA eaG8GzerF2KJIjwBTjQYBetJPY cF6biefuk6lqaejsZhTaRWNp QGr4OXq9MFOsdQrtGyXgAXW3To E7VCC6xJFjyT6qqZtaqlzguP7q Oyc+TVJOOjwvdGQ+PHRkIHN0 wOfvRRrxYGNprK8kMRSbK0m6Ee YwDeR1PHiuX9SeprK6YDMbwIHu WWLjiPRGbV4nhtlfy2hvomqb BcWpZDKgVRg8JOh6ZNQnhYqsEs JkAUA4KqO0BEI1zLAzlP2dqLbj qtczeM4gFiq+GGD3KML2CM70 DC21K9UvEmdlzVTntJG+PHRhYm xlIHdpZHRoPScxMDAlJyBzdHls CM9oFx1fHREgNNTpmIvgaXYm OiBj (more content not included)... Normal [facility] Auto Diffon 07-28-2020 Basophils/100 WBC (Bld) 0.5 % Normal 0.0-2.0 [facility] Comment on above: Order Comment: Order Added by Discern Expert. Performed By: #### 1 [id number], [id number], [id number], [id number], [id number] #### [facility] [address] [place] [address] Basophils/Leukocytes Auto (Bld) [Pure # fraction] 0.1 E9/L Normal 0.0-0.2 [facility] Comment on above: Order Comment: Order Added by Discern Expert. Performed By: #### 1 [id number], [id number], [id number], [id number], [id number], [id number] #### [facility] [address] [place] [address] Eosinophils/100 WBC (Bld) 0.1 % Normal 0.0-8.0 [facility] Comment on above: Order Comment: Order Added by Discern Expert. Performed By: #### 1 [id number], [id number], [id number], [id number], [id number], [id number], [id number] #### [facility] [address] [place] [address] Eosinophils/Leukocytes Auto (Bld) [Pure # fraction] 0.0 E9/L Normal 0.0-0.5 [facility] Comment on above: Order Comment: Order Added by Discern Expert. Performed By: #### 1 [id number], [id number], [id number], [id number], 9861452, [id number], [id number] #### [facility] [address] [place] [address] Lymphocytes/100 WBC (Bld) 13.7 % Low 14.0-50.0 [facility] Comment on above: Order Comment: Order Added by Discern Expert. Performed By: #### 1 [id number], [id number], [id number], [id number], [id number], [id number], [id number] #### [facility] [address] [place] [address] Lymphocytes/Leukocytes Auto (Bld) [Pure # fraction] 1.5 E9/L Normal 1.0-4.0 [facility] Comment on above: Order Comment: Order Added by Discern Expert. Performed By: #### 1 [id number], [id number], [id number], [id number], [id number], [id number], [id number] #### [facility] [address] [place] [address] Monocytes/100 WBC (Bld) 2.3 % Low 4.0-14.0 [facility] Comment on above: Order Comment: Order Added by [employer] Expert. Performed By: #### 1 [id number], [id number], [id number], [id number] #### [facility] [address] [place] [address] Monocytes/Leukocytes Auto (Bld) [Pure # fraction] 0.2 E9/L Normal 0.2-1.0 [facility] Comment on above: Order Comment: Order Added by Discern Expert. Performed By: #### 1 [id number], [id number], [id number], [id number], [id number] #### [facility] [address] [place] [address] Neutrophils/100 WBC (Bld) 83.4 % High 36.0-75.0 [facility] Comment on above: Order Comment: Order Added by Discern Expert. Performed By: #### 1 [id number], [id number], [id number], [id number], [id number], [id number] #### [facility] [address] [place] [address] Neutrophils/Leukocytes Auto (Bld) [Pure # fraction] 8.8 E9/L High 2.0-7.5 [facility] Comment on above: Order Comment: Order Added by Discern Expert. Performed By: #### 1 [id number], 65981126, 5855178, 7393806, 3054357, 7111984, 11468972 #### [facility] [address] [place] [address] BMPon 07-28-2020 Creatinine [Mass/Vol] 1.0 mg/dL Normal 0.5-1.3 [facility] Comment on above: Performed By: #### 1 [id number], 10197353, 3794914, 8620947, 2109108, 8689980, 05912978 #### [facility] [address] [place] [address] Urea nitrogen [Mass/Vol] 13 mg/dL Normal 5-21 [facility] Comment on above: Performed By: #### 1 [id number], 80308667, 4061151, 6641551, 0250617, 2407220, 18885986 #### [facility] [address] [place] [address] Urea nitrogen/Creatinine [Mass ratio] 13 No Units Normal 10-20 [facility] Comment on above: Performed By: #### 1 [id number], 93146723, 4919575, 6461514, 9193836, 6017328, 98822289 #### [facility] [address] [place] [address] Anion gap [Moles/Vol] 15 mmol/L Normal 6-16 [facility] Comment on above: Performed By: #### 1 [id number], 98211357, 3267912, 4067700, 5428890, 2693530, 65719984 #### [facility] [address] [place] [address] Calcium [Mass/Vol] 7.9 mg/dL Low 8.9-11.1 [facility] Comment on above: Performed By: #### 1 3214002, 80186484, 0677753, 8117002, 8973780, 9146642, 99873072 #### [facility] [address] [place] [address] Chloride [Moles/Vol] 98 mmol/L Low 101-111 [facility] Comment on above: Performed By: #### 1 9462310, 38815624, 7383907, 9766776, 9071968, 8777736, 34958349 #### [facility] [address] [place] [address] CO2 [Moles/Vol] 25 mmol/L Normal 21-31 [facility] Comment on above: Performed By: #### 1 7039848, 74883480, 3748252, 8394142, 5531704, 8712766, 49557063 #### [facility] [address] [place] [address] Glucose [Mass/Vol] 104 mg/dL Normal 55-199 [facility] Comment on above: Result Comment: If t his glucose result represents a fasting glucose, interpretation should refer to the following reference range: 55-99 mg/dL Performed By: #### 1 0792618, 92327138, 7103801, 2553123, 2675757, 3094914, 78959716 #### [facility] [address] [place] [address] Potassium [Moles/Vol] 2.9 mmol/L Low 3.5-5.3 [facility] Comment on above: Performed By: #### 1 0078014, 39882899, 6112976, 9757606, 7871024, 4637902, 20267881 #### [facility] [address] [place] [address] Sodium [Moles/Vol] 135 mmol/L Normal 135-145 [facility] Comment on above: Performed By: #### 1 3642738, 20969662, 1032496, 9711906, 0224798, 0098527, 56330000 #### [facility] [address] [place], [place] [id number] CBC w/ Auto Diffon Erythrocyte distribution width (RBC) [Ratio] 15.2 % High 10.9-14.2 [facility] Comment on above: Performed By: #### 1 9542732, 69158062, 1333538, 6056269, 1747318, 9042261, 47217092 #### [facility] [address] [place] [address] Hematocrit (Bld) [Volume fraction] 36.7 % Normal 34.0-46.0 [facility] Comment on above: Performed By: #### 1 1747291, 82651308, 6164476, 5732710, 5276432, 2587825, 23873620 #### [facility] [address] [place] [address] Hemoglobin (Bld) [Mass/Vol] 12.3 g/dL Normal 12.0-16.0 [facility] Comment on above: Performed By: #### 1 5801167, 76518994, 5404038, 6921584, 0261472, 9010480, 65339529 #### [facility] [address] [place] [address] MCH (RBC) [Entitic mass] 28.1 pg Normal 27.0-34.0 [facility] Comment on above: Performed By: #### 1 7803094, 71187184, 4431023, 0067522, 5390809, 3952334, 61359173 #### [facility] [address] [place] [address] MCHC (RBC) [Mass/Vol] 33.4 g/dL Normal 31.4-36.0 [facility] Comment on above: Performed By: #### 1 1358494, 66078052, 5680007, 3420666, 6244150, 0151070, 73442051 #### [facility] [address] [place] [address] MCV (RBC) [Entitic vol] 84.1 fL Normal 80.0-100.0 [facility] Comment on above: Performed By: #### 1 5051612, 32810421, 1283454, 0866357, 6871126, 0762891, 82149745 #### [facility] [address] [place] [address] Platelet mean volume (Bld) [Entitic vol] 6.6 fL Normal 6.4-10.8 [facility] Comment on above: Performed By: #### 1 8328822, 74579751, 5818053, 5092807, 1099141, 6837236, 81477392 #### [facility] [address] [place] [address] Platelets (Bld) [#/Vol] 203.0 E9/L Normal 150.0-500.0 [facility] Comment on above: Result Comment: Plat elet count verified using smear estimate Slide reviewed by [email or web address]. Performed By: #### 1 8345733, 27697157, 2718674, 0556246, 2432752, 6626813, 96461712 #### [facility] [address] [place] [address] RBC (Bld) [#/Vol] 4.4 E12/L Normal 4.3-5.9 [facility] Comment on above: Performed By: #### 1 3639355, 47024745, 6488735, 9251401, 3321122, 9584511, 75547221 #### [facility] [address] [place] [address] WBC corrected for nucl RBC Auto (Bld) [#/Vol] 10.6 E9/L Normal 4.0-11.0 [facility] Comment on above: Performed By: #### 1 0898220, 60955830, 6485391, 5537727, 2509355, 7844788, 22770756 #### [facility] [address] [place] [address] CTA Cheston 07-28-2020 CTA Chest Exam Date/Time: 07/28/2020 00:13 EDT Reason for Exam: PE suspected, low/intermediate prob, positive D-dimer;Other (please specify) Report IMPRESSION: NO EVIDENCE OF PULMONARY EMBOLI. MODERATELY EXTENSIVE PULMONARY CONSOLIDATIONS TYPICAL FOR Covid-19 BRONCHOPNEUMONIA. MILD PROBABLY REACTIVE LYMPHADENOPATHY. EXAM: CTA Chest DATE: 07/28/2020 CLINICAL HISTORY: Cough fever, and shortness of breath. Covid-19 positive. COMPARISON: None available. TECHNIQUE: Spiral enhanced images were obtained of the chest after the infusion of approximately 75 mL of Isovue 370 contrast with pulmonary artery CTA protocol. Routine and volume rendered images were performed on a three-dimensional workstation. All CT scans at this facility use dose modulation, iterative reconstruction, and/or weight based dosing when appropriate to reduce radiation dose to as low as reasonably achievable. FINDINGS: No filling defects are identified within the pulmonary arterial vasculature to suggest pulmonary emboli. The thoracic aorta is normal in caliber without significant atherosclerotic plaquing or dissection. The heart is not enlarged. Moderately extensive rounded pulmonary consolidations aren't typical for Covid-19 bronchopneumonia. Mild mediastinal and hilar lymphadenopathy is probably reactive. There are no significant pleural or pericardial effusions. There are no fractures identified. The limited images of the upper abdomen are noncontributory. Report Prosthetic breast implants are incidentally noted. FINAL REPORT Dictated: 07/28/2020 10:12 am Ash Pacheco MD Signed (Electronic Signature): 07/28/2020 10:12 am Signed by: Ash Pacheco MD Transcribed by: KATHY Technologist: STARLA Technical Comments GFR (mL/min/1/73m2) >60 Contrast: Isovue 370 Contrast amount in ml's: 75 Normal [facility] D-Dimeron 07-28-2020 Fibrin D-dimer FEU (PPP) [Mass/Vol] 1122 ng/mL Abnormal 215-500 [facility] Comment on above: Result Comment: Resu lts Verified By Repeat Analysis Results Called To Travis Nuñez/SANDRA By Sandra Nick And Read Back For Confirmation On 07/27/2020 22:54:23 EDT. This D-Dimer assay may be used in conjunction with a non-high clinical pretest probability assessment to exclude deep-vein thrombosis(DVT). For exclusion of venous thrombosis or pulmonary embolism the analyte D-Dimer should not be used as an aid in patients with: Therapeutic dose anticoagulant therapy for >24 hours Fibrinolytic therapy within previous 7 days Trauma or surgery within previous 4 weeks Disseminated malignacies Aortic aneurysm Sepsis, severe infections, pneumonia, severe skin infections Liver cirrhosis Performed By: #### 1 [id number], 95256552, 3626695, 9655137, 1085984, 1039382, 00016390 #### [facility] [address] [place] [address] Discharge Instructionson Discharge Instructions [id number]:127 Normal [facility] ED Clinical Summaryon 2020 ED Clinical Summary (Inserted Image. Alaina ble to display) [place] [id number] ED Clinical Summary Person Information Name: DELICIA SERRANO [place] Age: 40 Years : 1980 Sex: Female Language: Maltese PCP: CORRINE ORDAZ MD Marital Status: Single Visit Id: Visit Reason: Cough; Headache; SORE THROAT, FEVER, DIFF BREATHING, COUGH Speciality: Acuity: 3 Enc Type: Emergency Med Service: Emergency Arrival: 07/27/2020 21:19:07 Discharge: 07/28/2020 01:30:00 LOS: 000 04:11 Checkin: 07/27/2020 21:19:07 Checkout: 07/28/2020 01:30:00 Dispo Type: Home (Routine DC) EVENTS: Event Name Event Status Request Date/Time Start Date/Time Complete Date/Time Arrive Complete 07/27/2020 21:19:07 07/27/2020 21:19:07 07/27/2020 21:19:07 Document Home Meds Request 07/27/2020 21:19:07 Triage Complete 07/27/2020 21:19:07 07/27/2020 21:28:52 07/27/2020 21:28:52 Bed Assign Complete 07/27/2020 21:29:02 07/27/2020 21:29:02 07/27/2020 21:29:02 Dr Exam Complete 07/27/2020 21:29:02 07/27/2020 21:41:29 07/27/2020 21:41:29 RN Exam Complete 07/27/2020 21:29:02 07/27/2020 21:35:36 07/27/2020 21:35:36 Registration Complete 07/27/2020 21:32:27 07/27/2020 21:32:27 07/27/2020 21:32:27 Reg Complete Request 07/27/2020 21:32:27 Reg Bed Request Complete 07/27/2020 21:32:27 07/27/2020 21:32:27 07/27/2020 21:32:27 Registration Complete 07/27/2020 21:41:29 07/27/2020 22:08:27 07/27/2020 22:08:27 Pending Labs Complete 07/27/2020 21:49:45 07/28/2020 01:04:09 Lab Complete 07/27/2020 21:49:45 07/27/2020 22:16:30 07/27/2020 22:54:26 EKG Complete 07/27/2020 21:49:45 07/27/2020 21:59:30 Patient Care Request 07/27/2020 21:49:45 RT Request 07/27/2020 21:49:45 X-Ray Complete 07/27/2020 21:49:45 07/27/2020 22:03:16 07/27/2020 22:32:51 Pending Labs Complete 07/27/2020 22:16:31 07/27/2020 22:16:31 07/27/2020 22:31:51 Lab Complete 07/27/2020 22:16:31 07/27/2020 22:16:31 07/27/2020 22:31:51 Wet Read Request 07/27/2020 22:32:51 Pending Labs Complete 07/27/2020 22:45:47 07/27/2020 22:45:47 07/27/2020 22:45:55 Lab Complete 07/27/2020 22:45:47 07/27/2020 22:45:47 07/27/2020 22:45:55 CT Complete 07/27/2020 23:26:16 07/27/2020 23:33:02 07/28/2020 00:13:50 Discharge Complete 07/28/2020 00:55:52 07/28/2020 02:18:35 07/28/2020 02:18:35 Transfer Complete 07/28/2020 02:18:35 07/28/2020 02:18:35 07/28/2020 02:18:35 ADDRESS: [address] [place] [phone] [facility] DOC NOTES: MEDICAL INFORMATION: Prescriptions Given: PATIENT EDUCATION INFORMATION: Instructions: COVID-19 Frequently Asked Questions Follow up: With: Address: When: CORRINE ORDAZ [address] [place] [address] [phone] Business (1) In 3 days 07/31/2020 Comments: Call your doctor Thursday to schedule for monoclonal atibodies. return if breathing worsens as discussed. monitor your oxygen level at home as discussed DIAGNOSIS: 1:Upper respiratory infection; 2:Pneumonia due to COVID-19 virus Normal [facility] ED Note-Physicianon 07-29-19 ED Note-Physician Basic Information Time Seen: Felipe Baez MD 07/27/2020 21:41 Chief Complaint Cough and fever since Thursday. Sputum, unknown color. Feels like cannot catch breath today. History of Present Illness presents with cough, fever, shortness of breath that started earlier this week. Cough is productive but she is not sure of the color of the phlegm. She presents now because she feels more short of breath. Review of Systems Constitutional: mild fever, no chills, no sweats, no weakness Respiratory: mild shortness of breath, moderate cough, no orthopnea, no wheezing Cardiovascular: no chest pain, no palpitations, no edema Additional ROS info: Except as noted in the above Review of Systems and in the History of Present Illness all other systems have been reviewed and are negative or noncontributory. Physical Exam Vitals & Measurements T: 38.1 ?C (Oral) HR: 82(Peripheral) RR: 20 BP: 115/79 SpO2: 95% General: alert, no acute distress Skin: warm, dry Head: no trauma, normocephalic Neck: Trachea midline, no adenopathy, no tenderness Eye: normal conjunctiva, sclera clear ENMT: , oral mucosa moist, Cardiovascular: regular rate and rhythm, normal peripheral perfusion Respiratory: Lungs CTA, respirations non labored Chest wall: no deformity. Gastrointestinal: soft, non distended, no tenderness, no guarding. Back: No tenderness, Normal ROM, Normal alignment. Extremities: no deformity, no trauma Neurological: oriented x 4, LOC appropriate for age, CN intact, motor strength equal & normal bilaterally, sensation equal & normal bilaterally, speech normal Psychiatric: cooperative, affect appropriate for age, normal judgement, normal psychiatric thoughts. Medical Decision Making patient presents with cough and shortness of breath. Found to be COVID19 positive and also found to have COVID19 pneumonia. Discharged home with a pulse oximeter and advised to followup with her doctor for monoclonal antibodies Assessment/Plan 1. Upper respiratory infection (J06.9: Acute upper respiratory infection, unspecified) 2. Pneumonia due to COVID-19 virus (U07.1: COVID-19) Orders: Automated Diff Basic Metabolic Panel CBC w/ Auto Diff CTA Chest D-Dimer ECG 12 Lead Adult ED Cardiac Monitoring eGFR Oxygen Saturation Oxygen Therapy PT & PTT Rapid COVID Antigen ([facility]) Saline Lock Insert Troponin 0 Hr. Troponin 3 Hr. Troponin 6 Hr. Troponin 9 Hr. XR Chest Single View Disposition Plan Discharge Prescription List Prescriptions No active prescription medications Follow-up No qualifying data available Problem List/Past Medical History Ongoing No qualifying data Historical No qualifying data Medications Inpatient No active inpatient medications Home No active home medications Allergies sulfamethizole (Unknown) Lab Results WBC: 10.6 E9/L (07/27/20 22:10:00) RBC: 4.4 E12/L (07/27/20 22:10:00) Hgb: 12.3 gm/dL (07/27/20 22:10:00) Hct: 36.7 % (07/27/20 22:10:00) MCV: 84.1 fL (07/27/20 22:10:00) MCH: 28.1 pg (07/27/20:10:00) MCHC: 33.4 gm/dL (07/27/20 22:10:00) RDW: 15.2 % High (07/27/20 22:10:00) Platelet: 203 E9/L (07/27/20 22:10:00) MPV: 6.6 fL (07/27/20 22:10:00) Neutro Auto: 83.4 % High (07/27/20 22:10:00) Lymph Auto: 13.7 % Low (07/27/20 22:10:00) Will Auto: 2.3 % Low (07/27/20 22:10:00) Eos Auto: 0.1 % (07/27/20 22:10:00) Basophil Auto: 0.5 % (07/27/20 22:10:00) Neutro Absolute: 8.8 E9/L High (07/27/20 22:10:00) Lymph Absolute: 1.5 E9/L (07/27/20 22:10:00) Will Absolute: 0.2 E9/L (07/27/20 22:10:00) Eos Absolute: 0 E9/L (07/27/20 22:10:00) Basophil Absolute: 0.1 E9/L (07/27/20 22:10:00) PT: 13.7 second(s) High (07/27/20 22:10:00) INR: 1.2 (07/27/20 22:10:00) PTT: 21.2 second(s) Low (07/27/20 22:10:00) D-Dimer: 1122 ng/mL Critical (07/27/20 22:10:00) Glucose Lvl: 104 mg/dL (07/27/20:10:00) BUN: 13 mg/dL (07/27/20:10:00) Creatinine: 1 mg/dL (07/27/20:10:00) eGFR: >60 (07/27/20:10:) eGFR AA: >60 (07/27/20:10:) BUN/Creat Ratio: 13 (07/27/20:10:) Sodium Lvl: 135 mmol/L (07/27/20:10:00) Potassium Lvl: 2.9 mmol/L Low (07/27/20:10:00) Chloride: 98 mmol/L Low (07/27/20:10:00) CO2: 25 mmol/L (07/27/20:10:) AGAP: 15 mEq/L (07/27/20:10:00) Calcium Lvl: 7.9 mg/dL Low (07/27/20:10:00) Troponin: 3.5 pg/mL Low (07/27/20:10:00) Rapid COVID Ag: Detected Critical (07/27/20:55:00) Rapid COV Int NEG Ctl: Pass (07/27/20:55:00) Rapid COV Int POS Ctl: Pass (07/27/20:55:00) First Test: Unknown (07/27/20:55:00) Employed in Healthcare: NO (07/27/20:55:00) Symptomatic as defined by CDC: YES (07/27/20:55:00) Hospitalized?: NO (07/27/20:55:00) ICU: NO (07/27/20:55:00) Resides in a Congregate Care Setting: NO (07/27/20:55:00) ?: Unknown (07/27/20:55:00) Diagnostic Results XR Chest Single View * Preliminary * 07/28/20 00:51:58 POSITIVE: diffuse mild infiltrat (more content not included)... Normal [facility] Comment on above: Result Comment: Elec tronically Signed By: Felipe Baez MD\.br\Date and Time Signed: 07/28/20 00:53 EDT ED Patient Summaryon 021 ED Patient Summary (Inserted Image. Alaina ble to display) [address] [address] Patient Discharge Instructions Person Information Name: DELICIA SERRANO Age: 40 Years Arrival Date: 07/27/2020 21:19:07 Discharge Diagnosis: 1:Upper respiratory infection; 2:Pneumonia due to COVID-19 virus Primary Care Physician: CORRINE ORDAZ MD Provider Information Primary Provider: Felipe Baez MD Advanced Assistant Chief Engineer:None The exam and treatment you received in the Emergency Department were for an urgent problem and are not intended as complete care. It is important that you follow up with a doctor, nurse practitioner, or physician?s assistant scientist for ongoing care. If your symptoms become worse or you do not improve as expected and you are unable to reach your usual health care provider, you should return to the Emergency Department. We are available 24 hours a day. DELICIA SERRANO has been given the following list of patient education materials, prescriptions and follow-up instructions: Follow-up Instructions: With: Address: When: CORRINE ORDAZ [address] [place] [phone] Business (1) In 3 days 07/31/2020 Comments: Call your doctor Thursday to schedule for monoclonal atibodies. return if breathing worsens as discussed. monitor your oxygen level at home as discussed In the event that this physician does not participate in your insurance network, please consult with your insurance company to find a nearby participating provider. Patient Education Materials: COVID-19 Frequently Asked Questions A MESSAGE TO ALL PATIENTS REGARDING OPIOIDS PRESCRIPTION OPIOIDS: WHAT YOU NEED TO KNOW Prescription opioids can be used to help relieve godldjrp-tt-vpxqmg pain and are often prescribed following a surgery or injury, or for certain health conditions. These medications can be an important part of the treatment but also come with serious risks. It is important to work with your healthcare provider to make sure you are getting the safest, most effective care. WHAT ARE THE RISKS AND SIDE EFFECTS OF OPIOID USE? Prescription opioids carry serious risks of addiction and overdose, especially with prolonged use. An opioid overdose, often marked by slowed breathing, can cause sudden . The use of prescription opioids can have a number of side effects as well, even when taken as directed: ? Tolerance?meaning you might need to take more of the medication for the same pain relief ? Physical dependence?meaning you have symptoms of withdrawal when a medication is stopped ? Increased sensitivity to pain ? Constipation ? Nausea, vomiting, and dry mouth ? Sleepiness and dizziness ? Confusion ? Depression ? Low levels of testosterone that can result in lower sex drive, energy, and strength ? Itching and sweating RISKS ARE GREATER WITH: ? History of drug misuse, substance use disorder, or overdose ? Mental health conditions (such as depression or anxiety) ? Sleep apnea ? Older age (65 years and older) ? Avoid alcohol while taking prescription opioids. Also, unless specifically advised by your health care provider, medications to avoid include: ? Benzodiazepines (such as Xanax or Valium) ? Muscle relaxants (such as Soma or Flexeril) ? Hypnotics (such as Ambien or Lunesta) ? Other prescription opioids KNOW YOUR OPTIONS Talk to your health care provider about ways to manage your pain that don?t involve prescription opioids. Some of these options may actually work better and have fewer risks and side effects. Options may include: ? Pain relievers such as acetaminophen, ibuprofen, and naproxen ? Some medication that are also used for depression or seizures ? Physical therapy and exercise ? Cognitive behavioral therapy, a psychological, goal-directed approach, in which patients learn how to modify physical, behavioral, and emotional triggers of pain and stress. IF YOU ARE PRESCRIBED OPIOIDS FOR PAIN: ? Never take opioids in greater amounts or more often than prescribed. ? Follow up with your primary health care provider. o Work together to create a plan on how to manage your pain. o Talk about ways to help manage your pain that don?t involve prescription opioids. o Talk about any and all concerns and side effects. ? Help prevent misuse and abuse o Never sell or share prescription opioids. o Never use another person?s prescription opioids. ? Store prescription opioids in a secure place and out of reach of others (this may include visitors, children, friends, and family). ? Safely dispose of unused prescription opioids: Find your community drug take-back program or your pharmacy mail-back program, or flush them down the toilet, following guidance from the Food and Drug Administration (www.fda.gov/Drugs/Resourc esForYou). ? Visit www.cdc.gov/drugoverdose to learn about the risks of opioids (more content not included)... Normal [facility] PT & PTTon 07-28-2020 aPTT Coag (PPP) [Time] 21.2 second(s) Low 25.1-36.5 [facility] Comment on above: Result Comment: Hepa rin therapeutic range (represented by Anti-Factor Xa activity of 0.2 - 0.4 U/mL) corresponds to PTT of 56.6 - 109.0 sec. Performed By: #### 1 [id number], [id number], 2996028, 3063473, 7572974, 1141534, [id number] #### [facility] [address] [place] [address] INR Coag (PPP) [Relative time] 1.2 {INR} Invalid Interpretation Code [facility] Comment on above: Result Comment: INR results are specifically intended to assess patients stabilized on long-term Anticoagulation therapy suggested INR?s ?Less Intensive Anticoagulation? 2.0 ? 3.0 Conventional Range 3.0 ? 4.5 Performed By: #### 1 [id number], 24807316, 9329428, 4137017, 1781548, 8920475, [id number] #### [facility] [address] [place] [address] PT Coag (PPP) [Time] 13.7 second(s) High 10.2-12.9 [facility] Comment on above: Performed By: #### 1 [id number], 19479985, 3660655, 2141789, 8357459, 8140719, [id number] #### [facility] [address] [place] [address] RAD - Preliminary Cat Scan R eporton 07-28-2020 RAD - Preliminary Cat Scan Report [id number]:127 Normal [facility] Rapid COVID Antigen ([facility])on 07-28-2020 Rapid COV Int NEG Ctl Pass Normal Fis her [facility] Comment on above: Performed By: #### 2 [id number] #### [facility] [address] [place] [address] Rapid COV Int POS Ctl Pass Normal Fis her [facility] Comment on above: Performed By: #### 2 [id number] #### [facility] [address] [place] [address] SARS-CoV-2 (COVID-19) RNA TONY+probe Ql (Unsp spec) Detected Abnormal Not Detected [facility] Comment on above: Result Comment: Resu lts Called To Shell Payan By [id number] And Read Back For Confirmation On 07/27/2020 22:20:45 EDT. Results faxed to [facility]. The [employer]? System for Rapid Detection of SARS-CoV-2 is a chromatographic digital immunoassay intended for the direct and qualitative detection of SARS-CoV-2 nucleocapsid antigens in nasal swabs from individuals who are suspected of COVID-19 by their healthcare provider within the first five days of the onset of symptoms. Negative results should be treated as presumptive, do not rule out SARS-CoV-2 infection and should not be used as the sole basis for treatment or patient management decisions, including infection control decisions. Negative results should be considered in the context of a patient?s recent exposures, history and the presence of clinical signs and symptoms consistent with COVID-19, and confirmed with a molecular assay, if necessary, for patient management. For in vitro diagnostic use. In the [place], only for use under an Emergency Use Authorization. In the [place], this test has not been FDA cleared or approved; this test has been authorized by FDA under an EUA for use by authorized laboratories; use by laboratories certified under the CLIA, 42 U.S.C. ?263a, that meet requirements to perform moderate, high, or waived complexity tests and at the Point of Care (POC), i.e., in patient care settings operating under a CLIA Certificate of Waiver, Certificate of Compliance, or Certificate of Accreditation. This test has been authorized only for the detection of proteins from SARS-CoV-2, not for any other viruses or pathogens; and, in the [place], this test is only authorized for the duration of the declaration that circumstances exist justifying the authorization of emergency use of in vitro diagnostics for detection and/or diagnosis of the virus that causes COVID-19 under Section 564(b)(1) of the Act, 21 U.S.C. ? 360bbb-3(b)(1), unless the authorization is terminated or revoked sooner. Performed By: #### 2 [id number] #### [facility] [address] [place] [address] Troponin 0 Hr.on 07-28-2020 Troponin I.cardiac [Mass/Vol] 3.50 pg/mL Low 10.10-27.10 [facility] Comment on above: Result Comment: The 95% CI (Confidence Interval) PPV (Positive Predictive Value) for myocardial infarction in females is 38 pg/mL, in males 51 pg/mL. The results should be used in conjunction with clinical conditions of myocardial infarction. (Access High Sensitivity Troponin I Instructions For Use, [employer], October 2017) Performed By: #### 1 [id number] #### [facility] [address] [place] [address] XR Chest Single Viewon 07-28 XR Chest Single View Exam Date/Time: 07/27/2020 22:32 EDT Reason for Exam: Chest pain Report IMPRESSION: Bilateral airspace infiltrates EXAM: XR Chest Single View CLINICAL HISTORY: Shortness of breath Chest pain COMPARISONS: 05/03/2008 FINDINGS: Diffuse bilateral airspace opacities. Consider Covid- 19. No effusions. No pneumothorax. Heart and mediastinum within normal limits FINAL REPORT Dictated: 07/28/2020 9:27 am Vladislav Jeffery MD Signed (Electronic Signature): 07/28/2020 9:27 am Signed by: Vladislav Jeffery MD Transcribed by: KATHY Technologist: STARLA Thompson [facility] eGFRon 07-28-2020 GFR/1.73 sq M.predicted among blacks MDRD (S/P/Bld) [Vol rate/Area] mL/min/{1.73_m2} Normal >=59 [facility] Comment on above: Order Comment: Order added by Discern Expert. Result Comment: eGFR is race adjusted. AA=. Performed By: #### 1 [id number] #### [facility] [address] [place] [address] GFR/1.73 sq M.predicted among non-blacks MDRD (S/P/Bld) [Vol rate/Area] mL/min/{1.73_m2} Normal >=59 [facility] Comment on above: Order Comment: Order added by Discern Expert. Result Comment: Contact Lens Technician cassie kidney disease could be indicated at eGFR's of less than 60 mL/min/1.73m2. Kidney failure is indicated at less than 15 mL/min/1.73m2. Performed By: #### 1 [id number] #### [facility] [address] [place] [address] Consent for Treatmenton 07-14 Consent for Treatment [id number]:127 Normal [facility] Physician Orderon 07-27-2020 Physician Order [id number]:127 Normal [facility] Rapid COVID Antigen ([facility])on 07-27-2020 Employed in Healthcare NO Normal [facility] Comment on above: Performed By: #### 2 [id number] #### [facility] [address] [place] [address] First Test Unknown [facility] Comment on above: Performed By: #### 2 [id number] #### [facility] [address] [place] [address] Hospitalized? NO Normal [facility] Comment on above: Performed By: #### 2 [id number] #### [facility] [address] [place] [address] ICU NO Normal [facility] Comment on above: Performed By: #### 2 [id number] #### [facility] [address] [place] [address] ? Unknown Normal [facility] Comment on above: Performed By: #### 2 [id number] #### [facility] [address] [place] [address] Resides in a Community Health Care Setting NO Normal [facility] Comment on above: Performed By: #### 2 [id number] #### [facility] [address] [place] [address] Symptomatic as defined by CDC YES Normal [facility] Comment on above: Performed By: #### 2 [id number] #### [facility] [address] [place] [address] Vital Signs Date Time Vital Sign Value Performing Clinician Vanessa garcia 03-26-2023 10:10-0500 Diastolic blood pressure 70 mm[Hg] MD Boyd Herrera Work Phone: [facility] 03-26-2023 10:10-0500 Heart rate 71 /min MD Boyd Herrera Work Phone: [facility] 03-26-2023 10:10-0500 Respiratory rate 16 /min MD Boyd Herrera Work Phone: [facility] 03-26-2023 10:10-0500 SaO2% (BldA) [Mass fraction] 96 % MD Boyd Herrera Work Phone: [facility] 03-26-2023 10:10-0500 Systolic blood pressure 118 mm[Hg] MD Boyd Herrera Work Phone: [facility] 03-26-2023 08:30-0500 Body height 157.48 cm MD Boyd Herrera Work Phone: [facility] 03-26-2023 08:30-0500 Body weight 99.79 kg MD Boyd Herrera Work Phone: [facility] 02-20-2023 10:30-0500 Body weight 105.23 kg MD Boyd Herrera Work Phone: [facility] 02-20-2023 10:30-0500 Diastolic blood pressure 81 mm[Hg] MD Boyd Herrera Work Phone: [facility] 02-20-2023 10:30-0500 Respiratory rate 16 /min MD Boyd Herrera Work Phone: [facility] 02-20-2023 10:30-0500 SaO2% (BldA) [Mass fraction] 98 % MD Boyd Herrera Work Phone: [facility] 02-20-2023 10:30-0500 Systolic blood pressure 126 mm[Hg] MD Boyd Herrera Work Phone: [facility] 11-20-2022 10:35-0400 Body temperature 97.8 [degF] MD Boyd Herrera Work Phone: [facility] 11-20-2022 10:35-0400 Body weight 107.5 kg MD Boyd Herrera Work Phone: [facility] 11-20-2022 10:35-0400 Diastolic blood pressure 74 mm[Hg] MD Boyd Herrera Work Phone: [facility] 11-20-2022 10:35-0400 Heart rate 84 /min MD Boyd Herrera Work Phone: [facility] 11-20-2022 10:35-0400 Respiratory rate 16 /min MD Boyd Herrera Work Phone: [facility] 11-20-2022 10:35-0400 SaO2% (BldA) [Mass fraction] 98 % MD Boyd Herrera Work Phone: [facility] 11-20-2022 10:35-0400 Systolic blood pressure 106 mm[Hg] MD Boyd Herrera Work Phone: [facility] 11-04-2022 13:50-0400 Body temperature 97.8 [degF] MD Boyd Herrera Work Phone: [facility] 11-04-2022 13:50-0400 Body weight 109.31 kg MD Boyd Herrera Work Phone: [facility] 11-04-2022 13:50-0400 Diastolic blood pressure 75 mm[Hg] MD Boyd Herrera Work Phone: [facility] 11-04-2022 13:50-0400 Heart rate 104 /min MD Boyd Herrera Work Phone: [facility] 11-04-2022 13:50-0400 Respiratory rate 16 /min MD Boyd Herrera Work Phone: [facility] 11-04-2022 13:50-0400 SaO2% (BldA) [Mass fraction] 98 % MD Boyd Herrera Work Phone: [facility] 11-04-2022 13:50-0400 Systolic blood pressure 112 mm[Hg] MD Boyd Herrera Work Phone: [facility] 11-04-2022 13:30-0400 Body height 157.48 cm MD Boyd Herrera Work Phone: [facility] Encounters Encounter Date Encounter Type Care Provider Facility Start: 09-21-2023 ambulatory CHRISTIANNE DA SILVA [facility] Start: 09-21-2023 End: 09-[facility]-20[facility] Start: 08-11-2023 End: 08-11-2023 ambulatory DISHA DILLARD Not Available Start: 08-06-2023 End: 08-06-[facility] Start: 07-09-2023 ambulatory ESTRELLITA DE PAZ [facility] Start: 06-30-2023 ambulatory CHRISTIANNE DA SILVA [facility] Start: 06-30-2023 End: 06-30-2023 ambulatory CHRISTIANNE [facility] Start: 06-09-2023 End: 06-09-2023 ambulatory [facility] Start: 06-02-2023 End: [facility] Start: 06-02-2023 End: 06-02-2023 ambulatory [facility] Start: 05-19-2023 End: 05-19-2023 ambulatory [facility] Start: 04-21-2023 ambulatory [facility] Start: 04-21-2023 End: 04-21-2023 ambulatory [facility] Start: 03-26-2023 End: 03-26-2023 ambulatory Disha Dillard Facility:[facility] Start: 03-26-2023 End: 03-26-2023 ambulatory MD Boyd Herrera Work Phone: [facility] Work Phone: Start: 03-26-2023 End: 03-26-2023 Patient encounter procedure MD Boyd Herrera Work Phone: [facility] Work Phone: Start: 03-24-2023 ambulatory [facility] Start: 03-23-2023 End: 03-23-2023 ambulatory CHRISTIANNE [facility] Start: 02-27-2023 End: 02-27-2023 ambulatory [facility] Start: 02-20-2023 ambulatory Huey Sims Facilit y:[facility] Start: 02-20-2023 End: 02-20-2023 ambulatory MD Boyd Herrera Work Phone: [facility] Work Phone: Start: 02-20-2023 End: 02-20-2023 Registered Recurring MD Boyd Herrera Work Phone: [facility] Work Phone: Start: 02-12-2023 End: 02-12-2023 ambulatory [facility] Start: 02-11-2023 End: 02-11-2023 ambulatory Boyd Herrera Facility:[facility] Start: 02-11-2023 Registered Recurring MD Max Herrera Work Phone: [facility] Work Phone: Start: 02-11-2023 End: 02-11-2023 ambulatory MD Boyd Herrera Work Phone: [facility] Work Phone: Start: 02-11-2023 End: 02-11-2023 Patient encounter procedure MD Boyd Herrera Work Phone: [facility] [place] Work Phone: Start: 02-02-2023 End: 02-02-2023 ambulatory [facility] Start: 01-08-2023 ambulatory [facility] Start: 12-22-2022 End: 12-22-2022 ambulatory [facility] Start: 12-22-2022 End: 12-22-2022 ambulatory [facility] Start: 12-04-2022 End: 12-04-2022 ambulatory [facility] Start: 11-27-2022 End: 11-27-2022 ambulatory Disha Dillard Facility:[facility] Start: 11-27-2022 End: 11-27-2022 ambulatory MD Boyd Herrera Work Phone: [facility] Work Phone: Start: 11-27-2022 End: 11-27-2022 Patient encounter procedure MD Boyd Herrera Work Phone: [facility] [place] Work Phone: Start: 11-20-2022 ambulatory MD Boyd cesar Work Phone: [facility] Work Phone: Start: 11-20-2022 Registered Recurring MD [facility] Start: 11-18-2022 End: 11-18-2022 ambulatory [facility] Start: 11-18-2022 End: 11-18-2022 ambulatory [facility] Start: 11-04-2022 End: 11-04-2022 ambulatory MD Boyd Herrera Work Phone: [facility] Work Phone: Start: 11-04-2022 End: 11-04-2022 Registered Recurring MD Boyd Her[facility]: Start: 07-31-2022 ambulatory JENNY REIS Facility: [facility] Start: 06-28-2022 End: 06-29-2022 ambulatory JENNY REIS Facility:[facility] Start: 05-08-2022 ambulatory JENNY REIS Facility: [facility] Start: 12-12-2021 ambulatory JENNY REIS Facility: [facility] Start: 11-21-2021 End: 11-21-2021 Patient encounter procedure MD Boyd Herrera Work Phone: [facility] [place] Start: 08-12-2021 End: 08-12-2021 ambulatory JACEK BRIZUELA . Facility:[facility] Procedures Date Procedure Procedure Detail Performing Clinician Start: 11-27-2022 XR pre/post mri xray MD Boyd Herrera Work Phone: Start: 11-27-2022 MRI of head MD Boyd Herrera Work Phone: Start: 11-27-2022 MRI of cervical spin e with contrast MD Boyd Herrera Work Phone: Start: 11-13-2022 Computed tomography of abdomen and pelvis with contrast MD Boyd Herrera Work Phone: Start: 11-13-2022 CT of thorax with contrast MD Boyd Herrera Work Phone: Plan of Treatment Date Care Activity Detail Author Start: 03-26-2023 Aerobic Culture Aerobic Culture [facility] Start: 03-26-2023 Anaerobic Culture Anaerobic Culture [facility] Start: 03-26-2023 Microscopic observation [Identifier] in Unspecified specimen by Gram stain [facility] Start: 03-26-2023 [facility] Start: 03-26-2023 End: 03-26-2023 [facility] Start: 03-26-2023 Cerebrospinal fluid culture [facility] Start: 02-11-2023 End: 02-11-2023 [facility] Start: 11-21-2021 [facility] Work Phone: Albumin [Mass/volume ] in Cerebral spinal fluid [facility] Albumin [Mass/volume ] in Serum or Plasma [facility] Albumin [Mass/volume ] in Serum or Plasma [facility] Albumin/Globulin ratio [facility] Bacteria identified in Unspecified specimen by Aerobe culture [facility] Bacteria identified in Unspecified specimen by Anaerobe culture [facility] Cell count, cerebros yo fluid [facility] Cerebrospinal fluid examination [facility] Cerebrospinal fluid IgG ratio and IgG index [facility] Comprehensive metabo lic 1999 panel - Serum or Plasma [facility] Comprehensive metabo lic 1999 panel - Serum or Plasma [facility] Comprehensive metabo lic 1999 panel - Serum or Plasma [facility] Copper measurement [facility] CT Abdomen and Pelvi s W contrast IV [facility] CT Chest W contrast IV [facility] Electrophoresis: [id number] [facility] Electrophoresis: [id number] [facility] Electrophoresis: beta-globulin [facility] Electrophoresis: adonay ma globulin [facility] Evaluation of cerebr ospinal fluid [facility] Fluid sample volume measurement [facility] Globulin [Mass/volum e] in Serum [facility] Glucose measurement estimated from glycated hemoglobin [facility] IgA [Mass/volume] in Serum or Plasma [facility] IgG [Mass/volume] in Cerebral spinal fluid [facility] IgG [Mass/volume] in Serum or Plasma [facility] IgG [Mass/volume] in Serum or Plasma [facility] IgG clearance/Albumi n clearance [Ratio] in Serum and CSF [facility] IgG synthesis rate [Mass/time] in Serum and CSF by calculation [facility] IgM [Mass/volume] in Serum or Plasma [facility] Insulin [Units/volum e] in Serum or Plasma [facility] Work Phone: Cade light chains.f ree [Mass/volume] in Serum [facility] Cade light chains.free/Lambda light chains.free [Mass Ratio] in Serum [facility] Lambda light chains. free [Mass/volume] in Serum or Plasma [facility] Patient Education [facility] Lum ar Puncture Discharge Instructions [facility] Work Phone: Protein [Mass/volume ] in Serum or Plasma [facility] Protein fractions.oligoclonal bands.intrathecal [Presence] in Serum and CSF [facility] Rheumatoid factor [Units/volume] in Serum or Plasma [facility] Work Phone: Serum immunofixation [facility] Thyrotropin [Units/v olume] in Serum or Plasma [facility] Work Phone: Thyroxine (T4) free index in Serum or Plasma by calculation [facility] Work Phone: Thyroxine measurement [facility] Work Phone: Triiodothyronine (T3 ) [Mass/volume] in Serum or Plasma [facility] Work Phone: Triiodothyronine res in uptake (T3RU) in Serum or Plasma [facility] Work Phone: [facility] Payers Date Payer Category Payer Unknown [id number] 1981 Unknown [id number] 1981 Unknown [id number] 1981 Unknown [id number] 1981 Unknown [id number] 1981 Unknown [id number] 1959 Self-pay [id number] 1958 Unknown [id number] Private Health Insurance [facility] [id number] Private Health Insurance [facility] [id number] Unknown Insurance No Card [id number] Unknown [id number] Unknown [id number] Unknown [id number] Unknown [id number] Social History Date Type Detail Facility Tobacco smoking stat us AKIS Unknown if ever smoked [facility] Work Phone: Start: 1980 Sex Assigned At Female F [facility] Start: 11-04-2022 End: 02-20-2023 Tobacco smoking status NHIS Never smoked tobacco (finding) [facility] Clinical Notes 07-28-2020 to 09-21-2023 Note Date & Type Note Facility 09-21-2023 Note ------ Attestation signed by Christianne Da Silva MD at 09/21/2023 1:53 PM I personally saw and examined the patient on the same date of service as resident/fellow . I discussed the findings and therapeutic plan with the resident/fellow . I agree with the documentation, except for any edits/updates below. Teaching Physician's Revisions Fibromyalgia is poorly controlled, difficult to assess if arthritis symptoms improved on methotrexate or not, will get further testing as below Has failed multiple treatment for fibromyalgia due to side effects, will switch Cymbalta to Savella ------ Subjective Patient ID: Delicia Serrano is a 43 y.o. female who presents for Arthritis (3 month follow up). Patient has a history of seronegative inflammatory arthritis, fibromyalgia who presents for follow up At her last appointment her methotrexate dose was increased to 15 mg weekly. She reports she is not doing too well. She reports she feels like she has been hit by a bus when she wakes up in the [employer]. She reports pain and stiffness in all of her joints, shoulders, wrists, small joints, hips, knees. She reports the increased dose of methotrexate has not helped. She takes a pill of prednisone 10 mg if she has a bad day. She reports the pattern of her joint pain and stiffness does not follow a routine and can be bad the whole day or better the next day. She reports swelling of her joints in her hands bilaterally. She reports she hasmuscle tenderness whenever her son or someone else pokes her or touches her.She denies fevers, chills, rashes, dry eyes, dry mouth. Weakness. She is on cymbalta 20 mg which she thinks helps because when she comes off it she has screaming pain in her lower extremities (which bother her the most right now). She has tried higher doses but they make her sleepy. Lyrica and gabapentin did not help the pain and made her gain weight. Review of Systems Constitutional: Negative for chills and fever. HENT: Negative for ear pain, rhinorrhea, sinus pain and sore throat. Respiratory: Negative for cough, chest tightness, shortness of breath and wheezing. Cardiovascular: Negative for chest pain and leg swelling. Gastrointestinal: Negative for diarrhea, nausea and vomiting. Genitourinary: Negative for dysuria and hematuria. Musculoskeletal: Positive for arthralgias and back pain. Skin: Negative for rash. Objective Visit Vitals BP 106/75 (BP Location: Left arm, Patient Position: Sitting, BP Cuff Size: Large adult) Pulse 99 Physical Exam Vitals and nursing note reviewed. Constitutional: Appearance: Normal appearance. HENT: Head: Normocephalic and atraumatic. Mouth/Throat: Mouth: Mucous membranes are moist. Pharynx: Oropharynx is clear. Eyes: Extraocular Movements: Extraocular movements intact. Conjunctiva/sclera: Conjunctivae normal. Pupils: Pupils are equal, round, and reactive to light. Cardiovascular: Rate and Rhythm: Regular rhythm. Pulses: Normal pulses. Heart sounds: Normal heart sounds. No murmur heard. Pulmonary: Effort: Pulmonary effort is normal. No respiratory distress. Breath sounds: Normal breath sounds. No wheezing. Abdominal: General: Bowel sounds are normal. There is no distension. Palpations: Abdomen is soft. Tenderness: There is no guarding. Musculoskeletal: General: Normal range of motion. Cervical back: Normal range of motion and neck supple. Right lower leg: No edema. Left lower leg: No edema. Skin: General: Skin is warm. Neurological: General: No focal deficit present. Mental Status: She is alert and oriented to person, place, and time. Mental status is at baseline. Cranial Nerves: No cranial nerve deficit. Sensory: No sensory deficit. Psychiatric: Mood and Affect: Mood normal. Behavior: Behavior normal. Thought Content: Thought content normal. Judgment: Judgment normal. Assessment/Plan 42-year-old female presented today for follow-up for seronegative inflammatory arthritis and fibromyalgia. Inflammatory arthropathy -Seronegative based on clinical features and presence of synovitis on Limited musculoskeletal exam of the wrist last visit -Good response to prednisone trial initially - On Methotrexate to 15 mg weekly (increased at previous visit) - Reports no imrovement since methotrexate dose was increased. Reports she takes prednisone PRN but it doesn't help much. Reports ongoing swelling and pain in joints diffusely. Pain and stiffness currently not following pattern of inflammation Plan: - Refill prednisone taken PRN for increased joint pain/stiffness - Continue methotrexate 15 mg weekly and folic acid 1 mg every day - Obtain MRI of right hand to assess for inflammation -Risks and benefits of methotrexate were discussed including but not limited to inc (more content not included)... [facility] 07-09-2023 [place] [address] Referral Source: No ref. provider found 07/09/23 CC: Chief Complaint Patient presents with Back Pain ИВАН RFA L4/5 L5/S1 - 85%improvement Hip Pain Left hip pain Pain Assessment Pain Assessment: 0-10 Pain Score: 1 Pain Type: Chronic pain Pain Location: Back Pain Orientation: Lower Pain Descriptors: Dull, Aching Pain Frequency: Intermittent Pain Onset: Ongoing Clinical Progression: Gradually improving Aggravating Factors: Other (Comment), Walking (lifting and walking too to long) Pain Interventions: Home medication, Heat applied Response to Interventions: ИВАН RFA L4/5 L5/S1 - 85%improvement 43 year old female here for follow up for chronic low back pain. She recently had a RFA L4/5 L5/S1 85 % improvement in her low back pain. She currently has pain in her left hip. She states her pain is worse with walking and in her left hip area and radiates into her buttock. She states she is hoping to get her function back and is hoping with these procedures she will be able to reduce her medications as well as be able to start walking her dog and maybe even work more. SUBJECTIVE: Delicia Serrano is a 43 y.o. female fibromyalgia and cervical pain here for follow up after VAMSI C7-T1. She reports 60% pain relief following her epidural. States she occasionally has paresthesias but do not persist. Pain is minimal and is more functional in daily activities. She now complains of arthritic pain in her lower back, exacerbated with bending, twisting and extension. States it is primarily over the belt line, but has also noticed radiation towards her ribs. Denies radicular pain into her legs. Pain is bothersome limiting daily chores. SHEKHAR : 25 Previous Procedure:none Physical Therapy: physical therapy for vertigo September 2019 Previous Pain Provider: none PDMP: Overdose Risk Score 140 #Prescribers 4 #Pharmacies 3 Past Medical History: Diagnosis Date Back pain Chronic pain disorder Cluster headache Extremity pain Fibromyalgia, primary Headache Headache, tension-type Joint pain Low back pain Lyme disease Migraine Peripheral neuropathy Patient Active Problem List Diagnosis Pain in both feet Pain in both hands Myalgia Chronic neck pain Fibromyalgia Chronic midline low back pain with sciatica Current use of steroid medication Pseudotumor cerebri Radiculopathy, cervical region Hyperglycemia Neuropathy state, incidental Lumbar radiculopathy Seronegative arthritis 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 therapy Spondylosis without myelopathy or radiculopathy, lumbosacral region Lumbar spondylosis Past Surgical History: Procedure Laterality Date BLADDER REPAIR BREAST SURGERY Bilateral SECTION, CLASSIC SECTION, CLASSIC revision OTHER SURGICAL HISTORY 01/12/2023 C7-T1 INTERLAMINAR EPIDURAL STEROID INJECTION Allergies Allergen Reactions Sulfa (Sulfonamide Antibiotics) Rash and Shortness of breath Other reaction(s): Unknown Other Reaction(s): Anaphylaxis-Bakers Yeast Metformin Hcl Other Reaction(s): GI Symptoms Pioglitazone Other reaction(s): stomach upset Family History Problem Relation Name Age of Onset Hypertension Mother Amanda Diabetes Mother Amanda Hyperlipidemia Mother Amanda Anxiety disorder Mother Amanda Depression Mother Amanda Migraines Mother Amanda Hypertension Father Negro Diabetes Father Negro Hyperlipidemia Father Negro Arthritis Maternal Grandfather [place] Cancer Maternal Grandfather Dominick Diabetes Maternal Grandfather [place] Stroke Maternal Grandfather Dominick Arthritis Maternal Grandmother Raydene Cancer Maternal Grandmother Raydene Diabetes Maternal Grandmother Raydene Miscarriages / Stillbirths Maternal Grandmother Raydene Arthritis Paternal Grandfather Vasiliy Diabetes Paternal Grandfather Vasiliy Arthritis Paternal Grandmother Jane Diabetes Paternal Grandmother Jane Asthma Son Santana Hypertension Son Santana defects Daughter Kathy GI problems Daughter Kathy Cancer Father's Sister Leigh Cancer Father's Brother Gene Hypertension [place] Mental illness [place] Review of Systems Constitutional: Negative for fever. Cardiovascular: Negative for chest pain. Gastrointestinal: Negative for abdominal pain. Genitourinary: Negative for dysuria and pelvic pain. Musculoskeletal: Positive for back pain. Neurological: Positive for weakness and headaches. Negative for numbness. Objective There were no vitals taken for this visit. General appearance: Well appearing, in no acute distress, alert. Lungs: Breathing unlabored, no respiratory distress Psych: Mood and affect appropriate. Alert and oriented Skin: Skin color, texture, turgor normal, no rashes or lesions. HEENT: normocephalic, atraumatic, sclera non-icteric. Extremities: No rashes, deformities, skin discol (more content not included)... [facility] 07-09-2023 [place] [address] Referral Source: No ref. provider found 07/09/23 CC: Chief Complaint Patient presents with Back Pain ИВАН RFA L4/5 L5/S1 - 85%improvement Hip Pain Left hip pain Pain Assessment Pain Assessment: 0-10 Pain Score: 1 Pain Type: Chronic pain Pain Location: Back Pain Orientation: Lower Pain Descriptors: Dull, Aching Pain Frequency: Intermittent Pain Onset: Ongoing Clinical Progression: Gradually improving Aggravating Factors: Other (Comment), Walking (lifting and walking too to long) Pain Interventions: Home medication, Heat applied Response to Interventions: ИВАН RFA L4/5 L5/S1 - 85%improvement 43 year old female here for follow up for chronic low back pain. She recently had a RFA L4/5 L5/S1 85 % improvement in her low back pain. She currently has pain in her left hip. She states her pain is worse with walking and in her left hip area and radiates into her buttock. She states she is hoping to get her function back and is hoping with these procedures she will be able to reduce her medications as well as be able to start walking her dog and maybe even work more. SUBJECTIVE: Delicia Serrano is a 43 y.o. female fibromyalgia and cervical pain here for follow up after VAMSI C7-T1. She reports 60% pain relief following her epidural. States she occasionally has paresthesias but do not persist. Pain is minimal and is more functional in daily activities. She now complains of arthritic pain in her lower back, exacerbated with bending, twisting and extension. States it is primarily over the belt line, but has also noticed radiation towards her ribs. Denies radicular pain into her legs. Pain is bothersome limiting daily chores. SHEKHAR : 25 Previous Procedure:none Physical Therapy: physical therapy for vertigo September 2019 Previous Pain Provider: none PDMP: Overdose Risk Score 140 #Prescribers 4 #Pharmacies 3 Past Medical History: Diagnosis Date Back pain Chronic pain disorder Cluster headache Extremity pain Fibromyalgia, primary Headache Headache, tension-type Joint pain Low back pain Lyme disease Migraine Peripheral neuropathy Patient Active Problem List Diagnosis Pain in both feet Pain in both hands Myalgia Chronic neck pain Fibromyalgia Chronic midline low back pain with sciatica Current use of steroid medication Pseudotumor cerebri Radiculopathy, cervical region Hyperglycemia Neuropathy state, incidental Lumbar radiculopathy Seronegative arthritis 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 therapy Spondylosis without myelopathy or radiculopathy, lumbosacral region Lumbar spondylosis Past Surgical History: Procedure Laterality Date BLADDER REPAIR BREAST SURGERY Bilateral SECTION, CLASSIC SECTION, CLASSIC revision OTHER SURGICAL HISTORY 01/12/2023 C7-T1 INTERLAMINAR EPIDURAL STEROID INJECTION Allergies Allergen Reactions Sulfa (Sulfonamide Antibiotics) Rash and Shortness of breath Other reaction(s): Unknown Other Reaction(s): Anaphylaxis-Bakers Yeast Metformin Hcl Other Reaction(s): GI Symptoms Pioglitazone Other reaction(s): stomach upset Family History Problem Relation Name Age of Onset Hypertension Mother Amanda Diabetes Mother Amanda Hyperlipidemia Mother Amanda Anxiety disorder Mother Amanda Depression Mother Amanda Migraines Mother Amanda Hypertension Father Negro Diabetes Father Negro Hyperlipidemia Father Negro Arthritis Maternal Grandfather Dominick Cancer Maternal Grandfather Dominick Diabetes Maternal Grandfather [place] Stroke Maternal Grandfather [place] Arthritis Maternal Grandmother Raydene Cancer Maternal Grandmother Raydene Diabetes Maternal Grandmother Raydene Miscarriages / Stillbirths Maternal Grandmother Raydene Arthritis Paternal Grandfather Vasiliy Diabetes Paternal Grandfather Vasiliy Arthritis Paternal Grandmother Jane Diabetes Paternal Grandmother Jane Asthma Son Asntana Hypertension Son Santana defects Daughter Kathy GI problems Daughter Kathy Cancer Father's Sister Leigh Cancer Father's Brother Gene Hypertension [place] Mental illness [place] Review of Systems Constitutional: Negative for fever. Cardiovascular: Negative for chest pain. Gastrointestinal: Negative for abdominal pain. Genitourinary: Negative for dysuria and pelvic pain. Musculoskeletal: Positive for back pain. Neurological: Positive for weakness and headaches. Negative for numbness. Objective There were no vitals taken for this visit. General appearance: Well appearing, in no acute distress, alert. Lungs: Breathing unlabored, no respiratory distress Psych: Mood and affect appropriate. Alert and oriented Skin: Skin color, texture, turgor normal, no rashes or lesions. HEENT: normocephalic, atraumatic, sclera non-icteric. Extremities: No rashes, deformities, skin discol (more content not included)... [facility] 06-30-2023 Note ------ Attestation signed by Christianne Da Silva MD at 06/30/2023 12:57 PM I personally saw and examined the patient on the same date of service as resident/fellow . I discussed the findings and therapeutic plan with the resident/fellow . I agree with the documentation, except for any edits/updates below. Teaching Physician's Revisions: Recently recovered from UTI, has had no fevers recently, reports chronic cough, chest x-ray has been unremarkable, this is unlikely to be related to methotrexate advised patient to follow-up with PCP for further management and workup Has active synovitis in multiple MCPs and PIPs on exam today will increase methotrexate to 15 mg/week ------ Subjective Patient ID: Delicia Serrano is a 43 y.o. female who presents for Follow-up. 06/30/2023 Patient presents to the clinic today for her follow-up visit. She reports improvement in her symptoms, was seen 4 weeks ago with fever and cough, there were concerns that methotrexate might have caused her fevers so she was instructed to hold Methotrexate, CXR was unremarkable, labs were unremarkable except for urine culture with gardenella and discussed with her. She completed augmentin course and had fever once after her course, patient resumed Methotrexate after her fevers stopped. She continues to have cough, productive of clear-yellowish sputum, worse in the morning. Reports very bad left hip pain, worse with laying on her left side. Review of Systems Constitutional: Negative for appetite change, chills, fatigue and fever. HENT: Negative for ear pain, rhinorrhea, sinus pain and sore throat. Eyes: Negative for pain and visual disturbance. Respiratory: Negative for cough, chest tightness, shortness of breath and wheezing. Cardiovascular: Negative for chest pain and leg swelling. Gastrointestinal: Negative for abdominal pain, blood in stool, constipation, diarrhea, nausea and vomiting. Genitourinary: Negative for dysuria, flank pain, frequency, hematuria and urgency. Musculoskeletal: Positive for arthralgias, back pain, joint swelling, myalgias and neck pain. Skin: Negative for rash. Neurological: Negative for dizziness, seizures, syncope, speech difficulty, weakness, numbness and headaches. Psychiatric/Behavioral: Negative for agitation and confusion. The patient is not nervous/anxious. Objective Visit Vitals BP 93/68 (BP Location: Left arm, Patient Position: Sitting) Pulse 96 Physical Exam Vitals and nursing note reviewed. Constitutional: Appearance: Normal appearance. HENT: Head: Normocephalic and atraumatic. Mouth/Throat: Mouth: Mucous membranes are moist. Pharynx: Oropharynx is clear. Eyes: Extraocular Movements: Extraocular movements intact. Conjunctiva/sclera: Conjunctivae normal. Pupils: Pupils are equal, round, and reactive to light. Cardiovascular: Rate and Rhythm: Normal rate and regular rhythm. Pulses: Normal pulses. Heart sounds: Normal heart sounds. No murmur heard. Pulmonary: Effort: Pulmonary effort is normal. No respiratory distress. Breath sounds: Normal breath sounds. No wheezing. Abdominal: General: Bowel sounds are normal. There is no distension. Palpations: Abdomen is soft. Tenderness: There is no guarding. Musculoskeletal: General: Normal range of motion. Cervical back: Normal range of motion and neck supple. Right lower leg: No edema. Left lower leg: No edema. Comments: Left SI joint tenderness Skin: General: Skin is warm. Neurological: General: No focal deficit present. Mental Status: She is alert and oriented to person, place, and time. Mental status is at baseline. Cranial Nerves: No cranial nerve deficit. Sensory: No sensory deficit. Psychiatric: Mood and Affect: Mood normal. Behavior: Behavior normal. Thought Content: Thought content normal. Judgment: Judgment normal. General: Alert, cooperative, appears well, no acute distress Neuro: alert and oriented, moves all extremities Psychiatric: Good eye contact, normal affect. Normal speech. Skin (limited): no rash on exposed skin surfaces. Normal nails. Extremities: No clubbing, cyanosis, or edema. No periungual erythema. Musculoskeletal: wrists without effusions. Hands: normal ROM, MCPs, PIPs, DIPs without effusions or synovitis.. Tenderness is present along second and third MCPs and PIPs Assessment/Plan 42-year-old female presented today for follow-up, reports joint pain worse in the wrist and hand associated with morning stiffness and swelling, with 50% improvement on prednisone Inflammatory arthropathy- improving -Seronegative based on clinical features and presence of synovitis on Limited musculoskeletal exam of the wrist last visit -Good response to prednisone trial -Increase Methotrexate to 15 mg weekly -- obta (more content not included)... [facility] 06-02-2023 Note Subjective Patient ID: Delicia Serrano is a 43 y.o. female who presents for Follow-up (generalized pain; has chronic cough and fever/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). HPI Review of Systems Objective Visit Vitals BP 107/72 (BP Location: Left arm, Patient Position: Sitting) Pulse 93 Physical Exam Assessment/Plan Diagnosis Plan 1. Chronic cough XR chest 2 views 2. Fever, unspecified fever cause Urinalysis Urine culture, routine Blood culture Basic metabolic panel Respiratory virus PCR panel SARS-CoV-2 PCR 3. Seronegative arthritis C4 complement C3 complement Orders Placed This Encounter Procedures Urine culture, routine Standing Status: Future Number of Occurrences: 1 Standing Expiration Date: 06/01/2024 Order Specific Question: Release to Patient Answer: Immediately Blood culture Standing Status: Future Number of Occurrences: 1 Standing Expiration Date: 06/01/2024 Order Specific Question: Release to Patient Answer: Immediately Respiratory virus PCR panel Standing Status: Future Number of Occurrences: 1 Standing Expiration Date: 06/01/2024 Order Specific Question: Release to Patient Answer: Immediately SARS-CoV-2 PCR Standing Status: Future Standing Expiration Date: 06/01/2024 Order Specific Question: Is this test for diagnosis or screening? Answer: Diagnosis of ill patient Order Specific Question: Symptomatic for COVID-19 as defined by CDC? Answer: Yes Order Specific Question: Symptoms Answer: Chills Order Specific Question: Symptoms Answer: Cough Order Specific Question: Symptoms Answer: Diarrhea Order Specific Question: Symptoms Answer: Fatigue Order Specific Question: Symptoms Answer: Fever Order Specific Question: Symptoms Answer: Joint pain Order Specific Question: Symptoms Answer: Muscle pain Order Specific Question: Symptoms Answer: Severe headache Order Specific Question: Hospitalized for COVID-19? Answer: No Order Specific Question: Admitted to ICU for COVID-19? 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 Answer: No Order Specific Question: ? Answer: No Order Specific Question: Release to Patient Answer: Immediately XR chest 2 views Standing Status: Future Number of Occurrences: 1 Standing Expiration Date: 06/01/2024 Scheduling Instructions: The phone number to contact [facility] Radiology is Once you have been placed into the phone tree, it will prompt with the following options. 1 - CT scheduling 2 - MRI scheduling 3 - Ultrasound scheduling 4 - X-ray, Nuclear Medicine, Mammograms scheduling 5 - Reports/Image requests or general questions Order Specific Question: Is the patient ? Answer: No Order Specific Question: Release to Patient Answer: Immediately Urinalysis Standing Status: Future Number of Occurrences: 1 Standing Expiration Date: 06/01/2024 Order Specific Question: Release to Patient Answer: Immediately C4 complement Standing Status: Future Number of Occurrences: 1 Standing Expiration Date: 06/01/2024 Order Specific Question: Release to Patient Answer: Immediately C3 complement Standing Status: Future Number of Occurrences: 1 Standing Expiration Date: 06/01/2024 Order Specific Question: Release to Patient Answer: Immediately Basic metabolic panel Standing Status: Future Number of Occurrences: 1 Standing Expiration Date: 06/01/2024 Order Specific Question: Release to Patient Answer: Immediately Recent Results (from the past 36 hour(s)) Urinalysis Collection Time: 06/02/23 11:29 AM Result Value Ref Range Color, Urine [place] (A) Yellow Clarity, Urine Slightly Cloudy (A) Clear pH, Urine 5.0 5.0 - 8.0 pH Leukocytes, Urine Negative Negative Nitrite, Urine Negative Negative Protein, Urine 30 (A) Negative mg/dL Glucose, Urine Negative Negative mg/dL Bilirubin, Urine Negative Negative Specific [place], Urine 1.027 (H) 1.015 - 1.020 Ketones, Urine Negative Negative mg/dL Blood, Urine Negative Negative Urine culture, routine Collection Time: 06/02/23 11:29 AM Specimen: Urine, Clean Catch Result Value Ref Range Urine Culture No growth at 18-24 hours C4 complement Collection Time: 06/02/23 11:29 AM Result Value Ref Range C4 Complement 38.9 (H) 16 - 38 mg/dL C3 complement Collection Time: 06/02/23 11:29 AM Result Value Ref Range C3 Complement 142.00 79.00 - 152.00 mg/dL Basic metabolic panel Collection Time: 06/02/23 11:29 AM Result Value Ref Range Sodium 140 136 - 145 mmol/L Potassium 3.5 3.5 - 5.1 mmol/L Chloride 110 (H) 98 - 107 mmol/L CO2 23 21 - 31 mmol/L BUN 18 7 - 25 mg/dL Creatinine 0.91 0.60 - 1.20 mg/dL Glucose 127 (H) 70 - 100 mg/dL Calcium 8.2 (L) 8.6 - 10.3 mg/dL Anion Gap 11 7 - (more content not included)... [facility] 06-02-2023 Note Subjective Patient ID: Delicia Serrano is a 43 y.o. female who presents for Follow-up (generalized pain; has chronic cough and fever/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). HPI She presents today for follow-up and evaluation of multiple acute symptoms, reports that she has been having cough for a while was treated with antibiotics with no improvement, for the past 2 weeks has been having high fevers up to 102, she has diffuse myalgia arthralgia, she feels dizzy, upon standing up noted that her heart rate increased to 130s Her PCP is concerned about the cough being caused from methotrexate She has recently had lumbar puncture for treatment of intracranial hypertension Review of Systems Constitutional: Positive for fatigue and fever. HENT: Negative for mouth sores, sore throat and trouble swallowing. Respiratory: Positive for cough. Negative for shortness of breath. Musculoskeletal: Positive for arthralgias and myalgias. Objective Visit Vitals BP 107/72 (BP Location: Left arm, Patient Position: Sitting) Pulse 93 Physical Exam General: Alert, cooperative, appears well, no acute distress HEENT: Head normocephalic, atraumatic. Conjunctivae clear, no scleral icterus, Skin (limited): no rash on exposed skin surfaces Musculoskeletal: . Hands: normal ROM, MCPs, PIPs, DIPs without effusions or synovitis. Enthesitis: None Tender points: Diffuse Assessment/Plan 42-year-old female presented today for follow-up, reports joint pain worse in the wrist and hand associated with morning stiffness and swelling, with 50% improvement on prednisone Fever Reports chronic cough and new fever for the past 2 weeks, myalgia arthralgia and dizziness, the symptoms are not likely related to methotrexate, will need to rule out infection, workup was ordered today, chest x-ray did not show any evidence of methotrexate lung toxicity or infection Encourage patient to call PCP to discuss further workup for fevers Blood pressure is stable in the office today Inflammatory arthropathy- Seronegative based on clinical features and presence of synovitis on Limited musculoskeletal exam of the wrist last visit Good response to prednisone trial And methotrexate initially Hold methotrexate due to possible infection Back pain Currently follows up with pain management for injections Fibromyalgia Intracranial hypertension Diagnosis Plan 1. Chronic cough XR chest 2 views 2. Fever, unspecified fever cause Urinalysis Urine culture, routine Blood culture Basic metabolic panel Respiratory virus PCR panel SARS-CoV-2 PCR 3. Seronegative arthritis C4 complement C3 complement Orders Placed This Encounter Procedures Urine culture, routine Standing Status: Future Number of Occurrences: 1 Standing Expiration Date: 06/01/2024 Order Specific Question: Release to Patient Answer: Immediately Blood culture Standing Status: Future Number of Occurrences: 1 Standing Expiration Date: 06/01/2024 Order Specific Question: Release to Patient Answer: Immediately Respiratory virus PCR panel Standing Status: Future Number of Occurrences: 1 Standing Expiration Date: 06/01/2024 Order Specific Question: Release to Patient Answer: Immediately SARS-CoV-2 PCR Standing Status: Future Standing Expiration Date: 06/01/2024 Order Specific Question: Is this test for diagnosis or screening? Answer: Diagnosis of ill patient Order Specific Question: Symptomatic for COVID-19 as defined by CDC? Answer: Yes Order Specific Question: Symptoms Answer: Chills Order Specific Question: Symptoms Answer: Cough Order Specific Question: Symptoms Answer: Diarrhea Order Specific Question: Symptoms Answer: Fatigue Order Specific Question: Symptoms Answer: Fever Order Specific Question: Symptoms Answer: Joint pain Order Specific Question: Symptoms Answer: Muscle pain Order Specific Question: Symptoms Answer: Severe headache Order Specific Question: Hospitalized for COVID-19? Answer: No Order Specific Question: Admitted to ICU for COVID-19? 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 Answer: No Order Specific Question: ? Answer: No Order Specific Question: Release to Patient Answer: Immediately XR chest 2 views Standing Status: Future Number of Occurrences: 1 Standing Expiration Date: 06/01/2024 Scheduling Instructions: The phone number to contact [facility] Radiology is Once you have been placed into the phone tree, it will prompt with the following options. 1 - CT scheduling 2 - MRI scheduling 3 - Ultrasound scheduling 4 - X-ray, Nuclear Medicine, Mammograms scheduling 5 - Reports/Image requests or general questions Order Specific Question: Is the patient ? An (more content not included)... [facility] 04-21-2023 Note Interventional Pain Management Nursing Note / Nurse Post-Call Note S/p ИВАН MBB L4/5 L5/S1 #1 Post call VM left to call department with results of procedure. [facility] 03-24-2023 Note Pain Medicine Medical [address] [address] Date: 03/24/23 Referral Source: No ref. provider found CC: Chief Complaint Patient presents with Follow-up C7-T1 INTERLAMINAR EPIDURAL STEROID INJECTION 60% pain relief SUBJECTIVE: Delicia Serrano is a 42 y.o. female fibromyalgia and cervical pain here for follow up after VAMSI C7-T1. She reports 60% pain relief following her epidural. States she occasionally has paresthesias but do not persist. Pain is minimal and is more functional in daily activities. She now complains of arthritic pain in her lower back, exacerbated with bending, twisting and extension. States it is primarily over the belt line, but has also noticed radiation towards her ribs. Denies radicular pain into her legs. Pain is bothersome limiting daily chores. SHEKHAR : 25 Previous Procedure:none Physical Therapy: physical therapy for vertigo September 2019 Previous Pain Provider: none PDMP: Overdose Risk Score 140 #Prescribers 4 #Pharmacies 3 Pain Assessment Pain Assessment: 0-10 Pain Score: 6 Pain Type: Chronic pain Pain Location: Neck Pain Orientation: Right, Left Pain Radiating Towards: Radiates down right arm to hand Pain Descriptors: Aching, Tingling, Burning, Radiating Pain Frequency: Constant/continuous Pain Onset: Ongoing Clinical Progression: Gradually improving Aggravating Factors: Other (Comment) (weather, driving) Pain Interventions: Medication (See MAR), Home medication, Cold applied, Heat applied Past Medical History: Diagnosis Date Back pain Chronic pain disorder Cluster headache Extremity pain Fibromyalgia, primary Headache Headache, tension-type Joint pain Low back pain Lyme disease Migraine Peripheral neuropathy Patient Active Problem List Diagnosis Pain in both feet Pain in both hands Myalgia Neck pain, chronic Fibromyalgia Chronic midline low back pain with sciatica Current use of steroid medication Pseudotumor cerebri Radiculopathy, cervical region Hyperglycemia Neuropathy state, incidental Lumbar radiculopathy Seronegative arthritis 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 Past Surgical History: Procedure Laterality Date BLADDER REPAIR BREAST SURGERY Bilateral SECTION, CLASSIC SECTION, CLASSIC revision OTHER SURGICAL HISTORY 01/12/2023 C7-T1 INTERLAMINAR EPIDURAL STEROID INJECTION Allergies Allergen Reactions Sulfa (Sulfonamide Antibiotics) Rash and Shortness of breath Other reaction(s): Unknown Other Reaction(s): Anaphylaxis-Bakers Yeast Metformin Hcl Other Reaction(s): GI Symptoms Pioglitazone Other reaction(s): stomach upset Family History Problem Relation Name Age of Onset Hypertension Mother Amanda Diabetes Mother Amanda Hyperlipidemia Mother Amanda Anxiety disorder Mother Amanda Depression Mother Amanda Migraines Mother Amanda Hypertension Father Negro Diabetes Father Negro Hyperlipidemia Father Negro Arthritis Maternal Grandfather Dominick Cancer Maternal Grandfather Dominick Diabetes Maternal Grandfather [place] Stroke Maternal Grandfather [place] Arthritis Maternal Grandmother Raydene Cancer Maternal Grandmother Raydene Diabetes Maternal Grandmother Raydene Miscarriages / Stillbirths Maternal Grandmother Raydene Arthritis Paternal Grandfather Vasiliy Diabetes Paternal Grandfather Vasiliy Arthritis Paternal Grandmother Jane Diabetes Paternal Grandmother Jane Asthma Son Santana Hypertension Son Santana defects Daughter Kathy GI problems Daughter Kathy Cancer Father's Sister Leigh Cancer Father's Brother Gene Hypertension [place] Mental illness [place] Review of Systems Constitutional: Negative for fever. Cardiovascular: Negative for chest pain. Gastrointestinal: Negative for abdominal pain. Genitourinary: Negative for dysuria and pelvic pain. Musculoskeletal: Positive for back pain. Neurological: Positive for weakness and headaches. Negative for numbness. Objective BP 132/82 (BP Location: Left arm, Patient Position: Sitting, BP Cuff Size: Adult) Pulse 76 General appearance: Well appearing, in no acute distress, alert. Lungs: Breathing unlabored, no respiratory distress Psych: Mood and affect appropriate. Alert and oriented Skin: Skin color, texture, turgor normal, no rashes or lesions. HEENT: normocephalic, atraumatic, sclera non-icteric. Extremities: No rashes, deformities, skin discoloration. There is non-pitting bilateral upper extremity Upper Extremity Musculoskeletal: No atrophy or tone abnormalities are noted. Gait: normal Assist device: none Alignment spine: normal Tenderness: minimal tenderness over right cervical paraspinals and lumbar facets Range of motion cervical spine: Flexion: normal >60 degrees Extension: normal >60 degrees Left axial rotation: normal >80 degrees Right axial rotation: normal > 80 degrees Pain with (more content not included)... [facility] 03-23-2023 Note PAIN INCREASES WHE G OING FROM SITTING TO STANDING PAIN INCREASES TO 4/10 [facility] 03-23-2023 Note Subjective Patient ID: Delicia Serrano is a 42 y.o. female who presents for Follow-up. HPI Today she reports improvement in her pain, she is not sure if the improvement is due to methotrexate or to cervical epidural injection done by pain management, morning stiffness in the hand however is improving, she reports itching and hair loss, had some oral ulceration when she first started methotrexate but now have resolved Review of Systems Constitutional: Positive for fatigue. Negative for fever. Genitourinary: Positive for dysuria. Musculoskeletal: Positive for arthralgias, back pain, joint swelling, myalgias and neck pain. Skin: Negative for rash. Neurological: Negative for weakness. Objective Visit Vitals BP 124/76 (BP Location: Left arm, Patient Position: Sitting) Pulse 82 Physical Exam General: Alert, cooperative, appears well, no acute distress Neuro: alert and oriented, moves all extremities Psychiatric: Good eye contact, normal affect. Normal speech. Skin (limited): no rash on exposed skin surfaces. Normal nails. Extremities: No clubbing, cyanosis, or edema. No periungual erythema. Musculoskeletal: wrists without effusions. Hands: normal ROM, MCPs, PIPs, DIPs without effusions or synovitis.. Tenderness is present along second and third MCPs and PIPs Assessment/Plan 42-year-old female presented today for follow-up, reports joint pain worse in the wrist and hand associated with morning stiffness and swelling, with 50% improvement on prednisone Inflammatory arthropathy- improving Seronegative based on clinical features and presence of synovitis on Limited musculoskeletal exam of the wrist last visit Good response to prednisone trial Continue methotrexate 5 tablets daily, will increase folic acid to 1 tablet twice a day secondary to hair loss Risks and benefits of methotrexate were discussed including but not limited to increased chance for infection, nausea, hair loss, oral ulcers, liver toxicity, bone marrow toxicity, etc. Methotrexate is teratogenic and patient should not get while on this medication. She has IUD the need for regular lab monitoring for potential methotrexate toxicity/side effects was discussed with patient. Patient should not drink alcohol while on this medication. 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 - Comprehensive metabolic panel; Future - CBC and differential; Future Diagnosis Plan 1. 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 therapy Comprehensive metabolic panel CBC and differential 2. Seronegative arthritis folic acid (Folvite) 1 mg tablet Comprehensive metabolic panel CBC and differential Orders Placed This Encounter Procedures Comprehensive metabolic panel Standing Status: Future Standing Expiration Date: 03/23/2024 Order Specific Question: Release to Patient Answer: Immediately CBC and differential Standing Status: Future Standing Expiration Date: 03/23/2024 Order Specific Question: Release to Patient Answer: Immediately No results found for this or any previous visit (from the past 36 hour(s)). Follow up in about 3 months (around 06/22/2023). [facility] 02-02-2023 Note Subjective Patient ID: Delicia Serrano is a 42 y.o. female who presents for Follow-up (recheck after steroid treatment). HPI She presents today for follow-up, reports almost 50 % improvement with prednisone and peripheral joint pain and swelling, reports significant improvement in her fatigue with prednisone, still complain of diffuse muscle aches, lower back pain radiating down her legs and neck pain, no new concerns Review of Systems Constitutional: Positive for fatigue. Negative for fever. Genitourinary: Positive for dysuria. Musculoskeletal: Positive for arthralgias, back pain, joint swelling, myalgias and neck pain. Skin: Negative for rash. Neurological: Negative for weakness. Objective Visit Vitals BP 137/82 (BP Location: Left arm, Patient Position: Sitting) Pulse 108 Physical Exam General: Alert, cooperative, appears well, no acute distress Neuro: alert and oriented, moves all extremities Psychiatric: Good eye contact, normal affect. Normal speech. Skin (limited): no rash on exposed skin surfaces. Normal nails. Extremities: No clubbing, cyanosis, or edema. No periungual erythema. Musculoskeletal: unremarkable exam of both elbows, wrists without effusions. Hands: normal ROM, MCPs, PIPs, DIPs without effusions or synovitis.. No synovitis of feet. Enthesitis: None Assessment/Plan 42-year-old female presented today for follow-up, reports joint pain worse in the wrist and hand associated with morning stiffness and swelling, with 50% improvement on prednisone Inflammatory arthropathy Seronegative based on clinical features and presence of synovitis on Limited musculoskeletal exam of the wrist last visit Good response to prednisone trial We will start methotrexate 5 tablets weekly we discussed side effects at length today Risks and benefits of methotrexate were discussed including but not limited to increased chance for infection, nausea, hair loss, oral ulcers, liver toxicity, bone marrow toxicity, etc. Methotrexate is teratogenic and patient should not get while on this medication. She has IUD the need for regular lab monitoring for potential methotrexate toxicity/side effects was discussed with patient. Patient should not drink alcohol while on this medication. Back pain Shooting from the C-spine down, she reports low back pain associated with sciatica symptoms, lumbar x-ray was unremarkable we will get an MRI Fibromyalgia Intracranial hypertension Diagnoses and all orders for this visit: Seronegative arthritis - methotrexate 2.5 mg tablet; Take 5 tablets (12.5 mg total) by mouth 1 (one) time per week Follow directions carefully, and ask to explain any part you do not understand. Take exactly as directed. - folic acid (Folvite) 1 mg tablet; Take 1 tablet (1 mg) by mouth in the morning. - predniSONE (Deltasone) 5 mg tablet; Take 1 tablet (5 mg) by mouth if needed (sever joint pain and swelling) for up to 10 days. 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 Seronegative arthritis methotrexate 2.5 mg tablet folic acid (Folvite) 1 mg tablet predniSONE (Deltasone) 5 mg tablet 2. Lumbar radiculopathy MR lumbar spine w and wo contrast 3. Dysuria Urinalysis Urinalysis Urinalysis microscopic 4. 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 Fibromyalgia Orders Placed This Encounter Procedures MR lumbar spine w and wo contrast Standing Status: Future Standing Expiration Date: 02/03/2024 Scheduling Instructions: The phone number to contact [facility] Radiology is Once you have been placed into the phone tree, it will prompt with the following options. 1 - CT scheduling 2 - MRI scheduling 3 - Ultrasound scheduling 4 - X-ray, Nuclear Medicine, Mammograms scheduling 5 - Reports/Image requests or general questions Order Specific Question: Is the patient ? Answer: No Order Specific Question: What is the patient's sedation requirement? Answer: No Sedation Order Specific Question: Release to Patient Answer: Immediately Urinalysis Standing Status: Future Number of Occurrences: 1 Standing Expiration Date: 02/03/2024 Order Specific Question: Release to Patient Answer: Immediately Urinalysis microscopic Order Specific Question: Release to Patient Answer: Immediately Recent Results (from the past 36 hour(s)) Urinalysis Collection Time: 02/02/23 12:10 PM Result Value Ref Range Color, Urine Yellow Yellow Clarity, Urine Slightly Cloudy (A) Clear pH, Urine 6.0 5.0 - 8.0 pH Leukocytes, Urine Negative Negative Nitrite, Urine Negative Negative Protein, Urine 30 (A) Negative mg/dL Glucose, Urine Negative Negative mg/dL Bilirubin, Urine Negative Negative Specific [place], Urine 1.027 (H) 1.015 - 1.020 Ketones, Urine Trace (A) Negative mg/dL (more content not included)... [facility] 01-08-2023 Note ------ Attestation signed by Carlos Perkins MD at 01/12/2023 7:59 AM I personally saw and examined the patient on the same date of service as resident/fellow Dr Fitch. I discussed the findings and therapeutic plan with the resident/fellow Dr Fitch. I agree with the documentation, except for any edits/updates below. Teaching Physician's Revisions: Diagnosis Plan 1. Neck pain, chronic Ambulatory referral to Pain Medicine 2. Intervertebral disc disorders with radiculopathy, lumbar region 3. Radiculopathy, cervical region 4. Cervical radiculopathy at C5 EPIDURAL CERVICAL/THORACIC W/ IMAG GUIDANCE FL in Pain Clinic ------ Pain Medicine Medical [address] [address] Date:01/08/23 Referral Source: Christianne Da Silva MD CC: Chief Complaint Patient presents with New Patient Neck and Low Back Pain SUBJECTIVE: Delicia Serrano is a 42 y.o. female who presents for initial consultation with a chief complaint of Neck to head pain with associated back pain . She would like to focus on her neck and headpain today. The patient has had this pain for August of 2022. Initiating event was reported as gradual. Pain is located in the neck and head and is radiating to the left shoulder. The pain has worsened. The pain quality is described as aching and dull. The pain is constant. Today, the pain intensity is rated as a 4 on a scale of 0-10. Patient reports associated symptoms of tightness . Pain is alleviated with muscle relaxer's. Pain is exacerbated with standing or sitting still, sleeping. Pain interferes with ADLs of working . The patient reports 3 hours of uninterrupted sleep per night. Patient has a past medical history of vertigo/ pseudo tumor cerebri. SHEKHAR : 25 Previous Procedure:none Physical Therapy: physical therapy for vertigo September 2019 Previous Pain Provider: none PDMP: Overdose Risk Score 140 #Prescribers 4 #Pharmacies 3 Pain Assessment Pain Assessment: 0-10 Pain Score: 4 Pain Type: Chronic pain Pain Location: Neck Pain Orientation: Right, Left Pain Radiating Towards: Head, between shoulder blades Pain Descriptors: Shooting, Sharp, Burning, Throbbing, Radiating Pain Frequency: Constant/continuous Pain Onset: Ongoing Clinical Progression: Not changed Aggravating Factors: Other (Comment) (weather, driving) Result of Injury: No Work-Related Injury: No Pain Interventions: Medication (See MAR), Home medication, Cold applied, Heat applied Multiple Pain Sites: Two (Low Back Pain) Past Medical History: Diagnosis Date Back pain Chronic pain disorder Cluster headache Extremity pain Fibromyalgia, primary Headache Headache, tension-type Joint pain Low back pain Lyme disease Migraine Peripheral neuropathy Patient Active Problem List Diagnosis Pain in both feet Pain in both hands Myalgia Neck pain, chronic Fibromyalgia Chronic midline low back pain with sciatica Current use of steroid medication Pseudotumor cerebri Cervical radiculopathy at C5 Hyperglycemia Neuropathy state, incidental Past Surgical History: Procedure Laterality Date BLADDER REPAIR BREAST SURGERY Bilateral SECTION, CLASSIC SECTION, CLASSIC revision Allergies Allergen Reactions Sulfa (Sulfonamide Antibiotics) Rash and Shortness of breath Other reaction(s): Unknown Other Reaction(s): Anaphylaxis-Bakers Yeast Metformin Hcl Other Reaction(s): GI Symptoms Pioglitazone Other reaction(s): stomach upset Family History Problem Relation Name Age of Onset Hypertension Mother Amanda Diabetes Mother Amanda Hyperlipidemia Mother Amanda Anxiety disorder Mother Amanda Depression Mother Amanda Migraines Mother Amanda Hypertension Father Negro Diabetes Father Negro Hyperlipidemia Father Negro Arthritis Maternal Grandfather Dominick Cancer Maternal Grandfather Dominick Diabetes Maternal Grandfather Dominick Stroke Maternal Grandfather Dominick Arthritis Maternal Grandmother Raydene Cancer Maternal Grandmother Raydene Diabetes Maternal Grandmother Raydene Miscarriages / Stillbirths Maternal Grandmother Raydene Arthritis Paternal Grandfather Vasiliy Diabetes Paternal Grandfather Vasiliy Arthritis Paternal Grandmother Jane Diabetes Paternal Grandmother Jane Asthma Son Santana Hypertension Son Santana defects Daughter Kathy GI problems Daughter Kathy Cancer Father's Sister Leigh Cancer Father's Brother Gene Hypertension [place] Mental illness [place] Review of Systems Objective BP 151/83 (BP Location: Right arm, Patient Position: Sitting, BP Cuff Size: Adult) Pulse 84 Ht 1.562 m (5' 1.5 ) Wt 104 kg (230 lb) BMI 42.75 kg/m??? General appearance: Well appearing, in no acute distress, alert. Lungs: Br (more content not included)... [facility] 12-22-2022 Note Subjective Patient ID: Delicia Serrano is a 42 y.o. female who presents for Follow-up. HPI She presents today for follow-up, reports continued pain and stiffness all over, she reports that her worst pain is at the wrist today, she reports swelling in both wrists and hands with morning stiffness lasting up to 2 hours, she is undergoing evaluation of intracranial hypertension Review of Systems Constitutional: Positive for fatigue. Negative for fever. Respiratory: Negative for shortness of breath. Musculoskeletal: Positive for arthralgias, joint swelling, myalgias, neck pain and neck stiffness. Skin: Negative for rash. Objective Visit Vitals BP 101/66 (BP Location: Left arm, Patient Position: Sitting) Pulse 84 Physical Exam General: Alert, cooperative, appears well, no acute distress HEENT: Head normocephalic, atraumatic. Conjunctivae clear, Psychiatric: Good eye contact, normal affect. Normal speech. Skin (limited): no rash on exposed skin surfaces. Normal nails. Extremities: No clubbing, cyanosis, or edema. No periungual erythema. Musculoskeletal: Hands: normal ROM, MCPs, PIPs, DIPs with diffuse tenderness worse MCPs and PIPs, no obvious swelling Tender points: Diffuse Assessment/Plan 42-year-old female presented today for evaluation of joint pain, workup so far showed negative DEEPA, anti CCP, RF, normal ESR/ CRP Diagnoses and all orders for this visit: Pain in both hands No history of psoriasis or IBD, negative serology as above She reports swelling and prolonged morning stiffness > 2 hours Limited MSK US done in both wrists, showed positive power doppler signal in both wrists worse on R side, no effusion or erosions were detected . US exam of 2nd and 3rd MCPs showed no abnormalities Will start prednisone trail to assess for seronegative arthritis, the history of swelling and prolonged stiffness is suggestive of that possibility - predniSONE (Deltasone) 5 mg tablet; Take 3 tablets daily for 7 days then 2 tablets daily for 7 days then one tablet daily for 7 days Chronic midline low back pain with sciatica, sciatica laterality unspecified - XR lumbar spine 2 or 3 views; Future Current use of steroid medication We discussed side effects of steroids including but not limited to: thinning of bones, thinning of skin, weight gain, higher risk of infections, more difficulties with glycemic control, sleep disturbances, avascular necrosis, etc. Patient is agreeable to proceed with steroid treatment. She is under evaluation for diabetes, monitor blood sugar closely while on steroids Pseudotumor cerebri Reviewed MRI of brain report, plan for LP per neurolfei, no need for CSF testing for rheumatological diseases, she does not have symptoms suggestive of SLE and the negative DEEPA is reliable to role out that diagnosis Cervical radiculopathy at C5 She has an upcoming appointment with pain management Fibromyalgia She is on lyrica and mobic , duloxetine with minimal improvement RTC in 3 weeks Diagnosis Plan 1. Pain in both hands predniSONE (Deltasone) 5 mg tablet 2. Chronic midline low back pain with sciatica, sciatica laterality unspecified XR lumbar spine 2 or 3 views 3. Current use of steroid medication 4. Pseudotumor cerebri Orders Placed This Encounter Procedures XR lumbar spine 2 or 3 views Standing Status: Future Standing Expiration Date: 12/23/2023 Scheduling Instructions: The phone number to contact [facility] Radiology is Once you have been placed into the phone tree, it will prompt with the following options. 1 - CT scheduling 2 - MRI scheduling 3 - Ultrasound scheduling 4 - X-ray, Nuclear Medicine, Mammograms scheduling 5 - Reports/Image requests or general questions Order Specific Question: Is the patient ? Answer: No Order Specific Question: Release to Patient Answer: Immediately No results found for this or any previous visit (from the past 36 hour(s)). Follow up in about 4 weeks (around 01/19/2023). [facility] 11-20-2022 Progress note Note Date/Time November 20, 2022 11:09[facility] at [address] [address] Hem/Onc Follow Up Note - OP Signed Patient: Delicia Serrano MR#: [id number] : 1980 Acct:[id number] Age/Sex: 42 / F Type: REG RCR Copies to: MD Huey Valdovinos MD~ Subjective Date/Time of Service: Date of Service: 11/20/2022 Time of Service: 11:07 Chief Complaint: Patient is here today for a 2 week follow up visit for abnormalSPEP and go over CT scans HPI: Delicia is a 42 year old female with a history of anxiety, depression, insomnia, migraines headaches, HILARY, vertigo, and paresthesia. Surgical history includes breast augmentation, cystoscopy, placement of ear tubes and appendectomy. Medications include simvastatin, Adderall, Lasix, Seroquel, lidocaine patch, Zyrtec, trazodone, methocarbamol, duloxetine, Imitrex, Ajovy, tizanidine, Lyrica, Mobic, Zofran, Adipex, Topamax, and zolpidem. Family cancer history includes her father with skin cancer, maternal grandfather with glioblastoma, maternal grandmother with a reproductive organ cancer, and paternal aunt with kidney cancer. She is referred by Dr. Sims for an abnormal SPEP and paresthesia. Most recent labs from August 2022 note creatinine 1.05. Calcium, total protein and albumin WNL. B12 mildly low, she has since initiated monthly injections. Folate WNL. DEEPA negative. M-spike/SPEP notes asymmetrical gamma. CBC last done in June2022 with normal wbc, hgb and platelets. On exam, she is very fatigued and has dizziness. She denies shortness of breath but does note chest pressure/heaviness that has been worked up by cardiology with EKG and ECHO without significant findings to date. She will feel like she has a fever maybe once every couple of weeks, but does not routinely check her temperature. She denies chills, but does admit to drenching night sweats a few times per week as well as drenching sweats during the day. She denies weight loss despite being on Adipex, which has decreased her appetite. She does have persistent abdominal pain without n/v or black, tarry stool. She has had migraines that have been significantly increased lately. She has not had a menstrual cycle in years d/t her IUD. She has constant pain everywhere, and has numbness and tingling in her arm, hands and legs. She also notes diffuse swelling for which she takes Lasix every day. 11/20/2022: She is here for the results of her CAT scan of chest abdomen and pelvis and alsofor the myeloma labs as well as iron studies and copper as well as LDH levels. Copper and LDH came back normal and iron studies came back borderline low normaland the myeloma labs revealed no M protein however kappa lambda both were elevated with a slightly elevated kappa over lambda ratio. Patient complains ofmore swelling in the fingers and puffiness and she is so on 11/18/2022 rheumatology has an order for the testing and labs and x-rays which are done thelast couple of days but no results yet. She is rescheduled for the MRI of the brain and MRI of the spine to be done on 11/29/2022. Rest of review systems negative. Subjective/ROS - Narrative: Head: Patient denied any headaches or vision changes Thoracic: Patient denied any shortness of breath or cough or hemoptysis Cardiovascular patient denies any chest pain or leg edema GI: Patient denies any nausea vomiting rectal bleed diarrhea : Patient denied gross hematuria. Hematology: Patient denied any bleeding from any source. No easy bruising. Lymphatic: No enlarged LAP anywhere. Skin: Normal skin exam no rashes or suspicious lesions. Neurological patient denies any headache or dizziness or focal weakness or sensory changes. [facility] - Medical History Medical History: Medical History (Last Updated 11/03/22 @ 13:31 by Brandy Alessandro) Anxiety Depression Insomnia Migraine headache HILARY (obstructive sleep apnea) Vertigo - Surgical History Surgical History: Surgical History (Last Updated 11/03/22 @ 13:30 by Brandy Francois) H/O breast augmentation H/O cystoscopy History of placement of ear tubes Hx of appendectomy - Family History Family History: Family History (Last Updated 11/03/22 @ 13:35 by Brandy Francois) Mother Hypercholesteremia Hypertension Father Hypercholesteremia Hypertension - Social History Smoking Status: Never smoker Home Medications & Allergies Allergies metformin Adverse Reaction (Verified 11/20/22 10:32) Unknown Reaction pioglitazone [From Actos] Adverse Reaction (Verified 11/20/22 10:32) Gastrointestinal Upset Sulfa (Sulfonamide Antibiotics) Adverse Reaction (Verified 11/20/22 10:32) Unknown Reaction Home Medications cetirizine 5 mg-pseudoephedrine ER 120 mg tablet,extended release,12hr (Zyrtec-D) 1 tab PO Q12H 11/03/22 [History Confirmed 11/20/22] duloxetine 20 mg capsule,delayed release sprinkle 20 mg PO DAILY 11/03/22 [History Confirmed 11/20/22] fremanezumab-vfrm 225 mg/1.5 mL subcutaneous auto-injector (Ajovy) 225 mg [id number] 11/03/22 [History Confirmed 11/20/22] furosemide 20 mg tablet (Lasix) 20 mg PO DAILY 11/03/22 [History Confirmed 11/20/22] lidocaine 5 % topical patch 1 patch topical DAILY 11/03/22 [History Confirmed 11/20/22] ondansetron HCl 4 mg tablet 4 mg PO DAILY 11/03/22 [History Confirmed 11/20/22] potassium 99 mg tablet mg 11/03/22 [History] pregabalin 300 mg capsule (Lyrica) 300 mg PO BID 11/03/22 [History Confirmed 11/20/22] quetiapine 25 mg tablet (Seroquel) 25 mg PO QHS 11/03/22 [History Confirmed 11/20/22] simvastatin 20 mg tablet 20 mg PO DAILY 11/03/22 [History Confirmed 11/20/22] sumatriptan succinate 50 mg tablet (Imitrex) 50 mg PO ONCE 11/03/22 [History Confirmed 11/20/22] tizanidine 4 mg tablet 4 mg PO QHS PRN Muscle Spasm 11/03/22 [History Confirmed 11/20/22] topiramate 25 mg tablet (Topamax) 25 mg PO QHS 11/03/22 [History Confirmed 11/20/22] trazodone 50 mg tablet 50 mg PO QHS PRN Insomnia 11/03/22 [History Confirmed 11/20/22] zolpidem 10 mg tablet 10 mg PO QHS 11/03/22 [History Confirmed 11/20/22] meloxicam 7.5 mg tablet 7.5 mg PO DAILY 11/04/22 [History Confirmed 11/20/22] multivitamin 1 tab PO DAILY 11/04/22 [History Confirmed 11/20/22] phentermine 37.5 mg tablet (Adipex-P) 37.5 mg PO DAILY 11/04/22 [History Confirmed 11/20/22] ferrous sulfate 325 mg (65 mg iron) tablet 325 mg PO DAILY #90 tabs 11/20/22 [Rx] Objective - Height/Weight Height/Weight: Height 5 ft 2 in Weight 107.501 kg - Vital Signs Vital Signs: 11/20/22 10:35 Temperature 97.8 F Pulse Rate [Left Brachial] 84 Respiratory Rate 16 Blood Pressure [Left Arm] 106/74 02 Sat by Pulse Oximetry 98 Oxygen Delivery Method Room Air Physical Exam Narrative: ECOG PS 0 CONSTITUTIONAL: The patient is in no acute distress. HEAD / FACE: Normocephalic. EYES: Pupils are equal and reactive to light. Conjunctivae and lids are benign in appearance. Ocular movement intact. EARS: Hearing grossly intact. NOSE / MOUTH / THROAT: Nose, mouth, tongue and oropharynx are benign in appearance. No signs of inflammation. NECK / THYROID: Neck is supple. Thyroid is symmetrical, without thyromegaly, masses or palpable nodules. LYMPHATIC: No palpable cervical, supraclavicular, axillary, or inguinal adenopathy. RESPIRATORY: Normal to inspection. Lungs clear to auscultation and percussion. No wheezing, rales, rhonchi or rubs. Normal effort. CARDIOVASCULAR: Regular rate and rhythm. No murmurs, gallops, or rubs. ABDOMEN: Bowel sounds normoactive. Soft, nontender, non-distended. No splenomegaly. No palpable masses. INTEGUMENTARY: The skin is unremarkable. No rashes. She has a pea sized red/purple spot on her right breast without swelling or irritation. It is not raised. She will see dermatology for eval MUSCULOSKELETAL: Normal musculature, but she has swollen joints of the hands bilaterally.. EXTREMITIES: No edema, cyanosis or clubbing. NEUROLOGICAL: Alert and oriented. Cranial nerves intact. No gross motor or sensory deficits. PSYCHIATRIC: No anxiety or evidence of depression. - ECOG Performance Status ECOG Score: 1 Results - Labs Labs: Diagram of Most Recent CBC and CMP 11/04/22 15:07 11/04/22 15:07 Labs on 11/04/2022 revealed WBC of 13.6 hemoglobin 13.5 platelet 385,000. Absolute neutrophil count is 8.3. Absolute eosinophil count 0.5. Creatinine 0.98. Calcium is 8.9. Ferritin is 25 iron is 55 iron saturation is 14%. The TIBC is279. AST is 15 ALT 29 alk phos of 94. Total bilirubin 0.3. Her LDH was [id number]. Serum protein electrophoresis revealed no M protein however her kappa overlambda ratio was 2.04 which was slightly elevated kappa was 15.9 and the lambda was 7.8. Copper was normal 117. IgE G was 676 normal IgM was normal 105 and IgA was normal at 92. Rheumatoid factor was less than 10. Serum immunofixationshows no M protein. Assessment and Plan (1) Abnormal SPEP Labs from August 2022 with SPEP noting asymmetrical gamma We discussed this finding and that this is negative for monoclonal protein. We reviewed possible causes for this result and for abnormal proteins in the blood. Previous cbc in June did not show any anemia or other cell line abnormalities at that time. She has significant paresthesias and has been worked up with neurology, continues to follow with Dr. Sims and has also been referred to rheumatology She has upcoming brain and spine MRI thru neurology We will check a cbc, cmp, ldh, iron studies, copper, immunofixation, free light chains, and repeat spep We also will order CT of c/a/p given her diffuse symptoms including abdominal pain and chest heaviness. She will follow-up for results and determination if additional testing will be necessary at that time. B12 deficiency recently initiated monthly B12 injections with her pcp folate ok 11/20/22 visit: Labs on 11/04/2022 revealed WBC of 13.6 hemoglobin 13.5 platelet 385,000. Absolute neutrophil count is 8.3. Absolute eosinophil count 0.5. Creatinine 0.98. Calcium is 8.9. Ferritin is 25 iron is 55 iron saturation is 14%. The TIBC is 279. AST is 15 ALT 29 alk phos of 94. Total bilirubin 0.3. Her LDH was normal 153. Serum protein electrophoresis revealed no M protein however herkappa over lambda ratio was 2.04 which was slightly elevated kappa was 15.9 and the lambda was 7.8. Copper was normal 117. IgE G was 676 normal IgM was [id number] and IgA was normal at 92. Rheumatoid factor was less than 10. Serum immunofixation shows no M protein. Diagnoses at this point: Inflammatory related elevated free light chains without M protein on immunofixation. Borderline iron deficiency without anemia. B12 deficiency. Mild leukocytosis based on neutrophilia. Swollen fingers likely inflammatory arthritis. Plan as defer management of inflammatory arthritis to rheumatology. She has been evaluated by them with further labs and images as of 11/18/2022. I recommend starting ferrous sulfate 325 mg once a day for next 3 months. Continue monthly B12 injection at her primary care physician. Repeat CBC CMP iron studies B12 folate and myeloma labs in 3 months and if the showed no abnormalities we will get her discharged from our practice at that point. If the iron deficiency persist then we will need to give her IV iron infusion as she stated she does not have medical. Anymore since she was placed on IUD. - Time with Patient Time Spent with Patient (Follow Up Visit): 25 minutes Coordination of Care & Counseling Time: Greater than 50% of time spent with patient was for coordination of care (as documented) and [id number] counseling of patient and/or family. Dictated By: Mariana Cortes MD DD/ [id number] Signed By: <Electronically signed by Mariana Cortes MD> 11/20/22 1110 [facility] Work Phone: [phone] 630-381109-05-2023 Note Attestation signed by Christianne Da Silva MD at 11/18/2022 11:53 AM I personally saw and examined the patient on the same date of service as resident/fellow . I discussed the findings and therapeutic plan with the resident/fellow . I agree with the documentation, except for any edits/updates below. Teaching Physician's Revisions: 42 YO F presented today for evaluation of joint and muscle pain She does have elements of fibromyalgia that is worsening secondary to uncontrolled radiculopathy and insomnia She is Cymbalta , mobic and lyrica We will do further workup to r/o inflammatory arthritis. She denies history of psoriasis or IBD , no synovitis or nail changes on exam today Ref to pain management for further management of radiculopathy pain Consider optimizing Cymbalta dose next visit Subjective Patient ID: Delicia Serrano is a 42 y.o. right hand dominant female who presents for New Patient (Joint pain.Muscle pain). HPI She has a PMH of Migraines, prediabetes, obesity, chronic left C5 radiculopathy, and right carpal tunnel syndrome. She complains of 5-6 year history of bilateral lower extremity and right upper extremity numbness and pain and bilateral upper extremity weakness. She also complains of diffuse joint aches during this time. She complains of pain in almpst all joints includinbg in the neck and low back. Her bilateral hip pain is the most severe followed by bilateral 1st MTP joints. These symptoms seem to have been progressively worsening. No aggravating factors. Alleviating factors have included medications. Mobic helps with muscle pains. Did not tolerate ibuprofen with due to heartburn. Cymbalta helped with leg pain. She is unsure if lyrica helps much. Tizanidine does help with myalgias. She has been on simvastatin for 2 months, no change in myalgias. She takes lasix twice daily for lower extremity edema. She has been taking adipex for 2 months. MRI cervical spine 06/25/20 notable for uncovertebral spurring with mild to moderate neural forminal narrowing without canal stenosis. EMG of bilateral upper extremities from 05/2020 showed carpal tunnel syndrome on the right and a chronic C5 radiculopathy on the left. EMG of bilateral lower extremities from 2019 was normal. Review of Systems Constitutional: Positive for diaphoresis and fever (occasional). Negative for appetite change, chills and unexpected weight change. HENT: Positive for trouble swallowing. Negative for hearing loss and mouth sores. Dry mouth Eyes: Negative for pain, redness and itching. Respiratory: Negative for apnea, cough, choking and shortness of breath. Cardiovascular: Negative for chest pain and palpitations. Chest heaviness Gastrointestinal: Positive for abdominal pain. Negative for blood in stool, constipation, diarrhea and nausea. Endocrine: Negative for cold intolerance, heat intolerance, polydipsia, polyphagia and polyuria. Genitourinary: Negative for decreased urine volume, difficulty urinating, dyspareunia, dysuria, flank pain, frequency, genital sores, hematuria, menstrual problem, pelvic pain, urgency, vaginal bleeding, vaginal discharge and vaginal pain. Musculoskeletal: Positive for arthralgias, back pain, gait problem, joint swelling, myalgias and neck pain. Negative for neck stiffness. Skin: Negative for color change, rash and wound. Allergic/Immunologic: Positive for environmental allergies. Negative for food allergies and immunocompromised state. Neurological: Positive for weakness, numbness and headaches. Vertigo Hematological: Negative for adenopathy. Bruises/bleeds easily. Psychiatric/Behavioral: Positive for decreased concentration, dysphoric mood and sleep disturbance. Negative for agitation, behavioral problems and suicidal ideas. The patient is not nervous/anxious. Objective Visit Vitals BP 98/67 (BP Location: Left arm, Patient Position: Sitting) Pulse 78 Physical Exam General: Pleasant, sitting comfortably in the room in no acute distress HEENT:No obvious deformities. No scleral injection. CVS: extremities well perfused, no peripheral cyanosis in exposed areas Lung: normal effort of breathing, no accessory muscle usage Psyche: mood and affect appropriate and normal Skin: there is no petechiae, purpura noted.Skin is also warm and dry to touch. Neurologically: Alert, oriented, followed commands, sensation intact to light touch. Frankel's sign is bilaterally negative. Bilateral patellar reflexes 2+. No clonus present in bilateral ankles. Musculoskeletal exam: Moves all extremities spontaneously. No hypermobility present Diffusely tender to deep muscle palpation in bilateral lower extremities Diffusely tender to deep muscle palpation in right upper extremity Right 3rd-5th PIP tender to palpat (more content not included)...[facility]08-23-2023 Consult note Author Nicki Duran [facility] November 05, 2022 4:26pm Note Date/Time November 04, 2022 3: 55pm [facility] [place] [address] Hem/Onc Consult Note - OP Signed Patient: Delicia Serrano MR#: [id number] : 1980 Acct:[id number] Age/Sex: 42 / F Type: REG RCR Copies to: MD Huey Valdovinos MD~ HPI Date/Time of Service: Date of Service: 11/04/2022 Time of Service: 15:55 Referring Provider/PCP: Referring Provider: Huey Sims MD PCP: Boyd Herrera MD - History of Present Illness Reason for Consultation: paresthesia, abnormal spep Chief Complaint: Patient is here today for a referral from Dr. Huey Sims for paresthesia and abnormal SPEP HPI: Delicia is a 42 year old female with a history of anxiety, depression, insomnia, migraines headaches, HILARY, vertigo, and paresthesia. Surgical history includes breast augmentation, cystoscopy, placement of ear tubes and appendectomy. Medications include simvastatin, Adderall, Lasix, Seroquel, lidocaine patch, Zyrtec, trazodone, methocarbamol, duloxetine, Imitrex, Ajovy, tizanidine, Lyrica, Mobic, Zofran, Adipex, Topamax, and zolpidem. Family cancer history includes her father with skin cancer, maternal grandfather with glioblastoma, maternal grandmother with a reproductive organ cancer, and paternal aunt with kidney cancer. She is referred by Dr. Sims for an abnormal SPEP and paresthesia. Most recent labs from August 2022 note creatinine 1.05. Calcium, total protein and albumin WNL. B12 mildly low, she has since initiated monthly injections. Folate WNL. DEPEA negative. M-spike/SPEP notes asymmetrical gamma. CBC last done in June2022 with normal wbc, hgb and platelets. On exam, she is very fatigued and has dizziness. She denies shortness of breath but does note chest pressure/heaviness that has been worked up by cardiology with EKG and ECHO without significant findings to date. She will feel like she has a fever maybe once every couple of weeks, but does not routinely check her temperature. She denies chills, but does admit to drenching night sweats a few times per week as well as drenching sweats during the day. She denies weight loss despite being on Adipex, which has decreased her appetite. She does have persistent abdominal pain without n/v or black, tarry stool. She has had migraines that have been significantly increased lately. She has not had a menstrual cycle in years d/t her IUD. She has constant pain everywhere, and has numbness and tingling in her arm, hands and legs. She also notes diffuse swelling for which she takes Lasix every day. [facility] - Medical History Medical History: Medical History (Last Updated 11/03/22 @ 13:31 by Brandy Francois) Anxiety Depression Insomnia Migraine headache HILARY (obstructive sleep apnea) Vertigo - Surgical History Surgical History: Surgical History (Last Updated 11/03/22 @ 13:30 by Brandy Francois) H/O breast augmentation H/O cystoscopy History of placement of ear tubes Hx of appendectomy - Family History Family History: Family History (Last Updated 11/03/22 @ 13:35 by Brandy Francois) Mother Hypercholesteremia Hypertension Father Hypercholesteremia Hypertension - Social History Smoking Status: Never smoker Home Medications & Allergies Allergies metformin Adverse Reaction (Verified 11/04/22 13:40) Unknown Reaction pioglitazone [From Actos] Adverse Reaction (Verified 11/04/22 13:40) Gastrointestinal Upset Sulfa (Sulfonamide Antibiotics) Adverse Reaction (Verified 11/04/22 13:40) Unknown Reaction Home Medications cetirizine 5 mg-pseudoephedrine ER 120 mg tablet,extended release,12hr (Zyrtec- D) 1 tab PO Q12H 11/03/22 [History Confirmed 11/03/22] duloxetine 20 mg capsule,delayed release sprinkle 20 mg PO DAILY 11/03/22 [History Confirmed 11/03/22] fremanezumab-vfrm 225 mg/1.5 mL subcutaneous auto-injector (Ajovy) 225 mg [id number] 11/03/22 [History Confirmed 11/03/22] furosemide 20 mg tablet (Lasix) 20 mg PO DAILY 11/03/22 [History Confirmed 11/03/22] lidocaine 5 % topical patch 1 patch topical DAILY 11/03/22 [History Confirmed 11/03/22] ondansetron HCl 4 mg tablet 4 mg PO DAILY 11/03/22 [History Confirmed 11/03/22] potassium 99 mg tablet mg 11/03/22 [History] pregabalin 300 mg capsule (Lyrica) 300 mg PO BID 11/03/22 [History Confirmed 11/03/22] quetiapine 25 mg tablet (Seroquel) 25 mg PO QHS 11/03/22 [History Confirmed 11/03/22] simvastatin 20 mg tablet 20 mg PO DAILY 11/03/22 [History Confirmed 11/03/22] sumatriptan succinate 50 mg tablet (Imitrex) 50 mg PO ONCE 11/03/22 [History Confirmed 11/03/22] tizanidine 4 mg tablet 4 mg PO QHS PRN Muscle Spasm 11/03/22 [History Confirmed 11/03/22] topiramate 25 mg tablet (Topamax) 25 mg PO QHS 11/03/22 [History Confirmed 11/03/22] trazodone 50 mg tablet 50 mg PO QHS PRN Insomnia 11/03/22 [History Confirmed 11/03/22] zolpidem 10 mg tablet 10 mg PO QHS 11/03/22 [History Confirmed 11/03/22] meloxicam 7.5 mg tablet 7.5 mg PO DAILY 11/04/22 [History Confirmed 11/04/22] multivitamin 1 tab PO DAILY 11/04/22 [History Confirmed 11/04/22] phentermine 37.5 mg tablet (Adipex-P) 37.5 mg PO DAILY 11/04/22 [History Confirmed 11/04/22] Objective - Height/Weight Height/Weight: Height 5 ft 2 in Weight 109.316 kg - Vital Signs Vital Signs: 11/04/22 13:50 Temperature 97.8 F Pulse Rate [Left Brachial] 104 H Respiratory Rate 16 Blood Pressure [Left Arm] 112/75 02 Sat by Pulse Oximetry 98 Oxygen Delivery Method Room Air Physical Exam Narrative: ECOG PS 0 CONSTITUTIONAL: The patient is in no acute distress. HEAD / FACE: Normocephalic. EYES: Pupils are equal and reactive to light. Conjunctivae and lids are benign in appearance. Ocular movement intact. EARS: Hearing grossly intact. NOSE / MOUTH / THROAT: Nose, mouth, tongue and oropharynx are benign in appearance. No signs of inflammation. NECK / THYROID: Neck is supple. Thyroid is symmetrical, without thyromegaly, masses or palpable nodules. LYMPHATIC: No palpable cervical, supraclavicular, axillary, or inguinal adenopathy. RESPIRATORY: Normal to inspection. Lungs clear to auscultation and percussion. No wheezing, rales, rhonchi or rubs. Normal effort. CARDIOVASCULAR: Regular rate and rhythm. No murmurs, gallops, or rubs. ABDOMEN: Bowel sounds normoactive. Soft, nontender, non-distended. No splenomegaly. No palpable masses. INTEGUMENTARY: The skin is unremarkable. No rashes. She has a pea sized red/purple spot on her right breast without swelling or irritation. It is not raised. She will see dermatology for eval MUSCULOSKELETAL: Normal musculature, no joint deformities or abnormalities, normal range of motion for all four extremities. EXTREMITIES: No edema, cyanosis or clubbing. NEUROLOGICAL: Alert and oriented. Cranial nerves intact. No gross motor or sensory deficits. PSYCHIATRIC: No anxiety or evidence of depression. Assessment and Plan (1) Abnormal SPEP Labs from August 2022 with SPEP noting asymmetrical gamma We discussed this finding and that this is negative for monoclonal protein. We reviewed possible causes for this result and for abnormal proteins in the blood. Previous cbc in June did not show any anemia or other cell line abnormalities at that time. She has significant paresthesias and has been worked up with neurology, continues to follow with Dr. Sims and has also been referred to rheumatology She has upcoming brain and spine MRI thru neurology We will check a cbc, cmp, ldh, iron studies, copper, immunofixation, free light chains, and repeat spep We also will order CT of c/a/p given her diffuse symptoms including abdominal pain and chest heaviness. She will follow-up for results and determination if additional testing will be necessary at that time. B12 deficiency recently initiated monthly B12 injections with her pcp folate ok - Time with Patient Coordination of Care & Counseling Time: Greater than 50% of time spent with patient was for coordination of care (as documented) and [id number] counseling of patient and/or family. Dictated By: Nicki Duran APRN DD/ [id number] Signed By: <Electronically signed by TATUM Duran> 11/05/22 1418 [facility] Work Phone: [phone] NoteInfectious Disease COVID-19 Frequently Asked Questions COVID-19 (coronavirus disease) is an infection that is caused by a large family of viruses. Some viruses cause illness in people and others cause illness in animals like camels, cats, and bats. In some cases, the viruses that cause illness in animals can spread to humans. Where did the coronavirus come from? In February 2019, [place] told the World Health Organization (WHO) of several cases of lung disease (human respiratory illness). These cases were linked to an open seafood and livestock market in the city of [facility]. The link to the seafood and livestock market suggests that the virus may have spread from animals to humans. However, since that first outbreak in February, the virus has also been shownto spread from person to person. What is the name of the disease and the virus? Disease name Early on, this disease was called novel coronavirus. This is because scientists determined that thedisease was caused by a new (novel) respiratory virus. The World Health Organization (WHO) has now named the disease COVID-19, or coronavirus disease. Virus name The virus that causes the disease is called severe acute respiratory syndrome coronavirus 2 (SARS-CoV-2). More information on disease and virus naming World Health Organization (WHO): www.who.int/emergencies/diseases/gcjpn-legzfhogrjr-1709/technical-g uidance/wfxjmi-edc-shyefuhswbs-disease-(covid-2019)-kgw-pje-jhkwb-vpai-hzeovc-qo Who is at risk for complications from coronavirus disease? Some people may be at higher risk for complications from coronavirus disease. This includes older adults and people who have chronic diseases, such as heart disease, diabetes, and lung disease. If you are at higher risk for complications, take these extra precautions: ? Avoid close contact with people who are sick or have a fever or cough. Stay at least 3?6 ft (1?2 m) away from them, if possible. ? Wash your hands often with soap and water for at least 20 seconds. ? Avoid touching your face, mouth, nose, or eyes. ? Keep supplies on hand at home, such as food, medicine, and cleaning supplies. ? Stay home as much as possible. ? Avoid social gatherings and travel. How does coronavirus disease spread? The virus that causes coronavirus disease spreads easily from person to person (is contagious). There are also cases of community-spread disease. This means the disease has spread to: ? People who have no known contact with other infected people. ? People who have not traveled to areas where there are known cases. It appears to spread from one person to another through droplets from coughing or sneezing. Can I get the virus from touching surfaces or objects? There is still a lot that we do not know about the virus that causes coronavirus disease. Scientists are basing a lot of information on what they know about similar viruses, such as: ? Viruses cannot generally survive on surfaces for long. They need a human body (host) to survive. ? It is more likely that the virus is spread by close contact with people who are sick (direct contact), such as through: ? Shaking hands or hugging. ? Breathing in respiratory droplets that travel through the air. This can happen when an infected person coughs or sneezes on or near other people. ? It is less likely that the virus is spread when a person touches a surface or object that has thevirus on it (indirect contact). The virus may be able to enter the body if the person touches a surface or object and then touches his or her face, eyes, nose, or mouth. Can a person spread the virus without having symptoms of the disease? It may be possible for the virus to spread before a person has symptoms of the disease, but this ismost likely not the main way the virus is spreading. It is more likely for the virus to spread by being in close contact with people who are sick and breathing in the respiratory droplets of a sick person's cough or sneeze. What are the symptoms of coronavirus disease? Symptoms vary from person to person and can range from mild to severe. Symptoms may include: ? Fever. ? Cough. ? Tiredness, weakness, or fatigue. ? Fast breathing or feeling short of breath. These symptoms can appear anywhere from 2 to 14 days after you have been exposed to the virus. If you develop symptoms, call your health care provider. People with severe symptoms may need hospital care. If I am exposed to the virus, how long does it take before symptoms start? Symptoms of coronavirus disease may appear anywhere from 2 to 14 days after a person has been exposed to the virus. If you develop symptoms, call your health care provider. Should I be tested for this virus? Your health care provider will decide whether to test you based on your symptoms, history of exposure, and your risk factors. How does a health care provider test for this virus? Health care providers will collect samples to send for testing. Samples may in (more content not included)...[facility] Author Nicki Duran [facility] November 05, 2022 4:26pm Note Date/Time November 04, 2022 3: 55pm [facility] [place] [address] Hem/Onc Consult Note - OP Signed Patient: Delicia Serrano MR#: [id number] : 1980 Acct:[id number] Age/Sex: 42 / F Type: REG RCR Copies to: MD Huey Valdovinos MD~ HPI Date/Time of Service: Date of Service: 11/04/2022 Time of Service: 15:55 Referring Provider/PCP: Referring Provider: Huey Sims MD PCP: Boyd Herrera MD - History of Present Illness Reason for Consultation: paresthesia, abnormal spep Chief Complaint: Patient is here today for a referral from Dr. Huey Sims for paresthesia and abnormal SPEP HPI: Delicia is a 42 year old female with a history of anxiety, depression, insomnia, migraines headaches, HILARY, vertigo, and paresthesia. Surgical history includes breast augmentation, cystoscopy, placement of ear tubes and appendectomy. Medications include simvastatin, Adderall, Lasix, Seroquel, lidocaine patch, Zyrtec, trazodone, methocarbamol, duloxetine, Imitrex, Ajovy, tizanidine, Lyrica, Mobic, Zofran, Adipex, Topamax, and zolpidem. Family cancer history includes her father with skin cancer, maternal grandfather with glioblastoma, maternal grandmother with a reproductive organ cancer, and paternal aunt with kidney cancer. She is referred by Dr. Sims for an abnormal SPEP and paresthesia. Most recent labs from August 2022 note creatinine 1.05. Calcium, total protein and albumin WNL. B12 mildly low, she has since initiated monthly injections. Folate WNL. DEEPA negative. M-spike/SPEP notes asymmetrical gamma. CBC last done in June2022 with normal wbc, hgb and platelets. On exam, she is very fatigued and has dizziness. She denies shortness of breath but does note chest pressure/heaviness that has been worked up by cardiology with EKG and ECHO without significant findings to date. She will feel like she has a fever maybe once every couple of weeks, but does not routinely check her temperature. She denies chills, but does admit to drenching night sweats a few times per week as well as drenching sweats during the day. She denies weight loss despite being on Adipex, which has decreased her appetite. She does have persistent abdominal pain without n/v or black, tarry stool. She has had migraines that have been significantly increased lately. She has not had a menstrual cycle in years d/t her IUD. She has constant pain everywhere, and has numbness and tingling in her arm, hands and legs. She also notes diffuse swelling for which she takes Lasix every day. [facility] - Medical History Medical History: Medical History (Last Updated 11/03/22 @ 13:31 by Brandy Francois) Anxiety Depression Insomnia Migraine headache HILARY (obstructive sleep apnea) Vertigo - Surgical History Surgical History: Surgical History (Last Updated 11/03/22 @ 13:30 by Brandy Francois) H/O breast augmentation H/O cystoscopy History of placement of ear tubes Hx of appendectomy - Family History Family History: Family History (Last Updated 11/03/22 @ 13:35 by Brandy Francois) Mother Hypercholesteremia Hypertension Father Hypercholesteremia Hypertension - Social History Smoking Status: Never smoker Home Medications & Allergies Allergies metformin Adverse Reaction (Verified 11/04/22 13:40) Unknown Reaction pioglitazone [From Actos] Adverse Reaction (Verified 11/04/22 13:40) Gastrointestinal Upset Sulfa (Sulfonamide Antibiotics) Adverse Reaction (Verified 11/04/22 13:40) Unknown Reaction Home Medications cetirizine 5 mg-pseudoephedrine ER 120 mg tablet,extended release,12hr (Zyrtec- D) 1 tab PO Q12H 11/03/22 [History Confirmed 11/03/22] duloxetine 20 mg capsule,delayed release sprinkle 20 mg PO DAILY 11/03/22 [History Confirmed 11/03/22] fremanezumab-vfrm 225 mg/1.5 mL subcutaneous auto-injector (Ajovy) 225 mg [id number] 11/03/22 [History Confirmed 11/03/22] furosemide 20 mg tablet (Lasix) 20 mg PO DAILY 11/03/22 [History Confirmed 11/03/22] lidocaine 5 % topical patch 1 patch topical DAILY 11/03/22 [History Confirmed 11/03/22] ondansetron HCl 4 mg tablet 4 mg PO DAILY 11/03/22 [History Confirmed 11/03/22] potassium 99 mg tablet mg 11/03/22 [History] pregabalin 300 mg capsule (Lyrica) 300 mg PO BID 11/03/22 [History Confirmed 11/03/22] quetiapine 25 mg tablet (Seroquel) 25 mg PO QHS 11/03/22 [History Confirmed 11/03/22] simvastatin 20 mg tablet 20 mg PO DAILY 11/03/22 [History Confirmed 11/03/22] sumatriptan succinate 50 mg tablet (Imitrex) 50 mg PO ONCE 11/03/22 [History Confirmed 11/03/22] tizanidine 4 mg tablet 4 mg PO QHS PRN Muscle Spasm 11/03/22 [History Confirmed 11/03/22] topiramate 25 mg tablet (Topamax) 25 mg PO QHS 11/03/22 [History Confirmed 11/03/22] trazodone 50 mg tablet 50 mg PO QHS PRN Insomnia 11/03/22 [History Confirmed 11/03/22] zolpidem 10 mg tablet 10 mg PO QHS 11/03/22 [History Confirmed 11/03/22] meloxicam 7.5 mg tablet 7.5 mg PO DAILY 11/04/22 [History Confirmed 11/04/22] multivitamin 1 tab PO DAILY 11/04/22 [History Confirmed 11/04/22] phentermine 37.5 mg tablet (Adipex-P) 37.5 mg PO DAILY 11/04/22 [History Confirmed 11/04/22] Objective - Height/Weight Height/Weight: Height 5 ft 2 in Weight 109.316 kg - Vital Signs Vital Signs: 11/04/22 13:50 Temperature 97.8 F Pulse Rate [Left Brachial] 104 H Respiratory Rate 16 Blood Pressure [Left Arm] 112/75 02 Sat by Pulse Oximetry 98 Oxygen Delivery Method Room Air Physical Exam Narrative: ECOG PS 0 CONSTITUTIONAL: The patient is in no acute distress. HEAD / FACE: Normocephalic. EYES: Pupils are equal and reactive to light. Conjunctivae and lids are benign in appearance. Ocular movement intact. EARS: Hearing grossly intact. NOSE / MOUTH / THROAT: Nose, mouth, tongue and oropharynx are benign in appearance. No signs of inflammation. NECK / THYROID: Neck is supple. Thyroid is symmetrical, without thyromegaly, masses or palpable nodules. LYMPHATIC: No palpable cervical, supraclavicular, axillary, or inguinal adenopathy. RESPIRATORY: Normal to inspection. Lungs clear to auscultation and percussion. No wheezing, rales, rhonchi or rubs. Normal effort. CARDIOVASCULAR: Regular rate and rhythm. No murmurs, gallops, or rubs. ABDOMEN: Bowel sounds normoactive. Soft, nontender, non-distended. No splenomegaly. No palpable masses. INTEGUMENTARY: The skin is unremarkable. No rashes. She has a pea sized red/purple spot on her right breast without swelling or irritation. It is not raised. She will see dermatology for eval MUSCULOSKELETAL: Normal musculature, no joint deformities or abnormalities, normal range of motion for all four extremities. EXTREMITIES: No edema, cyanosis or clubbing. NEUROLOGICAL: Alert and oriented. Cranial nerves intact. No gross motor or sensory deficits. PSYCHIATRIC: No anxiety or evidence of depression. Assessment and Plan (1) Abnormal SPEP Labs from August 2022 with SPEP noting asymmetrical gamma We discussed this finding and that this is negative for monoclonal protein. We reviewed possible causes for this result and for abnormal proteins in the blood. Previous cbc in June did not show any anemia or other cell line abnormalities at that time. She has significant paresthesias and has been worked up with neurology, continues to follow with Dr. Sims and has also been referred to rheumatology She has upcoming brain and spine MRI thru neurology We will check a cbc, cmp, ldh, iron studies, copper, immunofixation, free light chains, and repeat spep We also will order CT of c/a/p given her diffuse symptoms including abdominal pain and chest heaviness. She will follow-up for results and determination if additional testing will be necessary at that time. B12 deficiency recently initiated monthly B12 injections with her pcp folate ok - Time with Patient Coordination of Care & Counseling Time: Greater than 50% of time spent with patient was for coordination of care (as documented) and [id number] counseling of patient and/or family. Dictated By: Nicki Duran APRN DD/ [id number] Signed By: <Electronically signed by TATUM Duran> 11/05/22 1626 [facility] Work Phone: Evaluation noteNo assessment information available [facility] Work Phone: Evaluation note* Diagnosis Onset Date Resolution Status Abnormal SPEP acute [facility] Work Phone: Progress note Author aMriana Cortes [facility] November 20, 2022 11:13am Note Date/Time November 20, 2022 11:09am [facility] [place] [address] Hem/Onc Follow Up Note - OP Signed Patient: Delicia Serrano MR#: [id number] : 1980 Acct:[id number] Age/Sex: 42 / F Type: REG RCR Copies to: MD Huey Valdovinos MD~ Subjective Date/Time of Service: Date of Service: 11/20/2022 Time of Service: 11:07 Chief Complaint: Patient is here today for a 2 week follow up visit for abnormalSPEP and go over CT scans HPI: Delicia is a 42 year old female with a history of anxiety, depression, insomnia, migraines headaches, HILARY, vertigo, and paresthesia. Surgical history includes breast augmentation, cystoscopy, placement of ear tubes and appendectomy. Medications include simvastatin, Adderall, Lasix, Seroquel, lidocaine patch, Zyrtec, trazodone, methocarbamol, duloxetine, Imitrex, Ajovy, tizanidine, Lyrica, Mobic, Zofran, Adipex, Topamax, and zolpidem. Family cancer history includes her father with skin cancer, maternal grandfather with glioblastoma, maternal grandmother with a reproductive organ cancer, and paternal aunt with kidney cancer. She is referred by Dr. Sims for an abnormal SPEP and paresthesia. Most recent labs from August 2022 note creatinine 1.05. Calcium, total protein and albumin WNL. B12 mildly low, she has since initiated monthly injections. Folate WNL. DEEPA negative. M-spike/SPEP notes asymmetrical gamma. CBC last done in June2022 with normal wbc, hgb and platelets. On exam, she is very fatigued and has dizziness. She denies shortness of breath but does note chest pressure/heaviness that has been worked up by cardiology with EKG and ECHO without significant findings to date. She will feel like she has a fever maybe once every couple of weeks, but does not routinely check her temperature. She denies chills, but does admit to drenching night sweats a few times per week as well as drenching sweats during the day. She denies weight loss despite being on Adipex, which has decreased her appetite. She does have persistent abdominal pain without n/v or black, tarry stool. She has had migraines that have been significantly increased lately. She has not had a menstrual cycle in years d/t her IUD. She has constant pain everywhere, and has numbness and tingling in her arm, hands and legs. She also notes diffuse swelling for which she takes Lasix every day. 11/20/2022: She is here for the results of her CAT scan of chest abdomen and pelvis and alsofor the myeloma labs as well as iron studies and copper as well as LDH levels. Copper and LDH came back normal and iron studies came back borderline low normaland the myeloma labs revealed no M protein however kappa lambda both were elevated with a slightly elevated kappa over lambda ratio. Patient complains ofmore swelling in the fingers and puffiness and she is so on 11/18/2022 rheumatology has an order for the testing and labs and x-rays which are done thelast couple of days but no results yet. She is rescheduled for the MRI of the brain and MRI of the spine to be done on 11/29/2022. Rest of review systems negative. Subjective/ROS - Narrative: Head: Patient denied any headaches or vision changes Thoracic: Patient denied any shortness of breath or cough or hemoptysis Cardiovascular patient denies any chest pain or leg edema GI: Patient denies any nausea vomiting rectal bleed diarrhea : Patient denied gross hematuria. Hematology: Patient denied any bleeding from any source. No easy bruising. Lymphatic: No enlarged LAP anywhere. Skin: Normal skin exam no rashes or suspicious lesions. Neurological patient denies any headache or dizziness or focal weakness or sensory changes. [facility] - Medical History Medical History: Medical History (Last Updated 11/03/22 @ 13:31 by Brandy Francois) Anxiety Depression Insomnia Migraine headache HILARY (obstructive sleep apnea) Vertigo - Surgical History Surgical History: Surgical History (Last Updated 11/03/22 @ 13:30 by Brandy Francois) H/O breast augmentation H/O cystoscopy History of placement of ear tubes Hx of appendectomy - Family History Family History: Family History (Last Updated 11/03/22 @ 13:35 by Brandy Francois) Mother Hypercholesteremia Hypertension Father Hypercholesteremia Hypertension - Social History Smoking Status: Never smoker Home Medications & Allergies Allergies metformin Adverse Reaction (Verified 11/20/22 10:32) Unknown Reaction pioglitazone [From Actos] Adverse Reaction (Verified 11/20/22 10:32) Gastrointestinal Upset Sulfa (Sulfonamide Antibiotics) Adverse Reaction (Verified 11/20/22 10:32) Unknown Reaction Home Medications cetirizine 5 mg-pseudoephedrine ER 120 mg tablet,extended release,12hr (Zyrtec- D) 1 tab PO Q12H 11/03/22 [History Confirmed 11/20/22] duloxetine 20 mg capsule,delayed release sprinkle 20 mg PO DAILY 11/03/22 [History Confirmed 11/20/22] fremanezumab-vfrm 225 mg/1.5 mL subcutaneous auto-injector (Ajovy) 225 mg [id number] 11/03/22 [History Confirmed 11/20/22] furosemide 20 mg tablet (Lasix) 20 mg PO DAILY 11/03/22 [History Confirmed 11/20/22] lidocaine 5 % topical patch 1 patch topical DAILY 11/03/22 [History Confirmed 11/20/22] ondansetron HCl 4 mg tablet 4 mg PO DAILY 11/03/22 [History Confirmed 11/20/22] potassium 99 mg tablet mg 11/03/22 [History] pregabalin 300 mg capsule (Lyrica) 300 mg PO BID 11/03/22 [History Confirmed 11/20/22] quetiapine 25 mg tablet (Seroquel) 25 mg PO QHS 11/03/22 [History Confirmed 11/20/22] simvastatin 20 mg tablet 20 mg PO DAILY 11/03/22 [History Confirmed 11/20/22] sumatriptan succinate 50 mg tablet (Imitrex) 50 mg PO ONCE 11/03/22 [History Confirmed 11/20/22] tizanidine 4 mg tablet 4 mg PO QHS PRN Muscle Spasm 11/03/22 [History Confirmed 11/20/22] topiramate 25 mg tablet (Topamax) 25 mg PO QHS 11/03/22 [History Confirmed 11/20/22] trazodone 50 mg tablet 50 mg PO QHS PRN Insomnia 11/03/22 [History Confirmed 11/20/22] zolpidem 10 mg tablet 10 mg PO QHS 11/03/22 [History Confirmed 11/20/22] meloxicam 7.5 mg tablet 7.5 mg PO DAILY 11/04/22 [History Confirmed 11/20/22] multivitamin 1 tab PO DAILY 11/04/22 [History Confirmed 11/20/22] phentermine 37.5 mg tablet (Adipex-P) 37.5 mg PO DAILY 11/04/22 [History Confirmed 11/20/22] ferrous sulfate 325 mg (65 mg iron) tablet 325 mg PO DAILY #90 tabs 11/20/22 [Rx] Objective - Height/Weight Height/Weight: Height 5 ft 2 in Weight 107.501 kg - Vital Signs Vital Signs: 11/20/22 10:35 Temperature 97.8 F Pulse Rate [Left Brachial] 84 Respiratory Rate 16 Blood Pressure [Left Arm] 106/74 02 Sat by Pulse Oximetry 98 Oxygen Delivery Method Room Air Physical Exam Narrative: ECOG PS 0 CONSTITUTIONAL: The patient is in no acute distress. HEAD / FACE: Normocephalic. EYES: Pupils are equal and reactive to light. Conjunctivae and lids are benign in appearance. Ocular movement intact. EARS: Hearing grossly intact. NOSE / MOUTH / THROAT: Nose, mouth, tongue and oropharynx are benign in appearance. No signs of inflammation. NECK / THYROID: Neck is supple. Thyroid is symmetrical, without thyromegaly, masses or palpable nodules. LYMPHATIC: No palpable cervical, supraclavicular, axillary, or inguinal adenopathy. RESPIRATORY: Normal to inspection. Lungs clear to auscultation and percussion. No wheezing, rales, rhonchi or rubs. Normal effort. CARDIOVASCULAR: Regular rate and rhythm. No murmurs, gallops, or rubs. ABDOMEN: Bowel sounds normoactive. Soft, nontender, non-distended. No splenomegaly. No palpable masses. INTEGUMENTARY: The skin is unremarkable. No rashes. She has a pea sized red/purple spot on her right breast without swelling or irritation. It is not raised. She will see dermatology for eval MUSCULOSKELETAL: Normal musculature, but she has swollen joints of the hands bilaterally.. EXTREMITIES: No edema, cyanosis or clubbing. NEUROLOGICAL: Alert and oriented. Cranial nerves intact. No gross motor or sensory deficits. PSYCHIATRIC: No anxiety or evidence of depression. - ECOG Performance Status ECOG Score: 1 Results - Labs Labs: Diagram of Most Recent CBC and CMP 11/04/22 15:07 11/04/22 15:07 Labs on 11/04/2022 revealed WBC of 13.6 hemoglobin 13.5 platelet 385,000. Absolute neutrophil count is 8.3. Absolute eosinophil count 0.5. Creatinine 0.98. Calcium is 8.9. Ferritin is 25 iron is 55 iron saturation is 14%. The TIBC is279. AST is 15 ALT 29 alk phos of 94. Total bilirubin 0.3. Her LDH was [id number]. Serum protein electrophoresis revealed no M protein however her kappa overlambda ratio was 2.04 which was slightly elevated kappa was 15.9 and the lambda was 7.8. Copper was normal 117. IgE G was 676 normal IgM was normal 105 and IgA was normal at 92. Rheumatoid factor was less than 10. Serum immunofixationshows no M protein. Assessment and Plan (1) Abnormal SPEP Labs from August 2022 with SPEP noting asymmetrical gamma We discussed this finding and that this is negative for monoclonal protein. We reviewed possible causes for this result and for abnormal proteins in the blood. Previous cbc in June did not show any anemia or other cell line abnormalities at that time. She has significant paresthesias and has been worked up with neurology, continues to follow with Dr. Sims and has also been referred to rheumatology She has upcoming brain and spine MRI thru neurology We will check a cbc, cmp, ldh, iron studies, copper, immunofixation, free light chains, and repeat spep We also will order CT of c/a/p given her diffuse symptoms including abdominal pain and chest heaviness. She will follow-up for results and determination if additional testing will be necessary at that time. B12 deficiency recently initiated monthly B12 injections with her pcp folate ok 11/20/22 visit: Labs on 11/04/2022 revealed WBC of 13.6 hemoglobin 13.5 platelet 385,000. Absolute neutrophil count is 8.3. Absolute eosinophil count 0.5. Creatinine 0.98. Calcium is 8.9. Ferritin is 25 iron is 55 iron saturation is 14%. The TIBC is 279. AST is 15 ALT 29 alk phos of 94. Total bilirubin 0.3. Her LDH was normal 153. Serum protein electrophoresis revealed no M protein however herkappa over lambda ratio was 2.04 which was slightly elevated kappa was 15.9 and the lambda was 7.8. Copper was normal 117. IgE G was 676 normal IgM was [id number] and IgA was normal at 92. Rheumatoid factor was less than 10. Serum immunofixation shows no M protein. Diagnoses at this point: Inflammatory related elevated free light chains without M protein on immunofixation. Borderline iron deficiency without anemia. B12 deficiency. Mild leukocytosis based on neutrophilia. Swollen fingers likely inflammatory arthritis. Plan as defer management of inflammatory arthritis to rheumatology. She has been evaluated by them with further labs and images as of 11/18/2022. I recommend starting ferrous sulfate 325 mg once a day for next 3 months. Continue monthly B12 injection at her primary care physician. Repeat CBC CMP iron studies B12 folate and myeloma labs in 3 months and if the showed no abnormalities we will get her discharged from our practice at that point. If the iron deficiency persist then we will need to give her IV iron infusion as she stated she does not have medical. Anymore since she was placed on IUD. - Time with Patient Time Spent with Patient (Follow Up Visit): 25 minutes Coordination of Care & Counseling Time: Greater than 50% of time spent with patient was for coordination of care (as documented) and [id number] counseling of patient and/or family. Dictated By: Mariana Cortes MD DD/ [id number] Signed By: <Electronically signed by Mariana Cortes MD> 11/20/22 1113 [facility] Work Phone: Summary Purpose Family History No Family History Records Found Relationship Condition Age at Onset Recorded Date/T shirley Not Specified Hypercholesterolemia Unknown Hypertension Unknown father Hypercholesterolemia Unknown Advance Directives No Advanced Directives Records Found Advance Directive Response Recorded Date/ Time Advance Directives No April 3:12pm Advance Directive Response Recorded Date/ Time Advance Directives No April 2:12pm Chief Complaint and Reason for Visit Chief Complaint Z00.00 Chief Complaint asymmetrical gamma Chief Complaint asymmetrical gamma Reason for Visit Abnormal SPEP Chief Complaint asymmetrical gamma R42 R20.2 M79.10 Reason for Visit Abnormal SPEP Chief Complaint R42 R20.2 M79.10 R73.9 asymmetrical gamma Reason for Visit Abnormal SPEP 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 Reason for Visit Abnormal SPEP Additional Source Comments INFORMATION SOURCE (unrecogn ized section and content) DATE CREATED AUTHOR [facility]11/[facility] DATE CREATED AUTHOR AUTHOR'S ORGANIZ ATION 07/14/2021 [facility]ist DATE CREATED AUTHOR AUTHOR'S ORGANIZ ATION [facility]22[facility]2022 [facility] DATE CREATED AUTHOR AUTHOR'S ORGANIZ ATION 04/02/2023 [facility] DATE CREATED AUTHOR AUTHOR'S ORGANIZ ATION 08/12/2023 [facility] dical Specialists EPIC DATE CREATED AUTHOR AUTHOR'S SALO ATION 09/22/2023 [facility] Care Teams (unrecognized sec tion and content) Team Status: Active Member Role Status Dates Boyd Herrera MD Primary Care Provider Active Team Status: Inactive Member Role Status Dates Boyd Herrera MD Primary Care Provider Active Disha Dillard PA-C Attending Provider Active Team Status: Active Member Role Status Dates Boyd Herrera MD Primary Care Provider Active Nicki Duran APRN Attending Provider Mehdi Sims MD Referring Provider Active Team Status: Inactive Member Role Status Dates Boyd Herrera MD Primary Care Provider Active Jenny Reis NP-C Attending Provider Active Goals (unrecognized section and content) Goals may be documented in a n alternate sectionGoals may be documented in an alternate sectionGoals may be documented in an alternate sectionGoals may be documented in an alternate sectionGoals may be documented in an alternate sectionGoals may be documented in an alternate sectionGoals may be documented in an alternate section FOR RECORDS PERTAINING TO PATIENTS WHO ARE OR HAVE BEEN ENROLLED IN A CHEMICAL DEPENDENCY/SUBSTANCEABUSE PROGRAM, SOME INFORMATION MAY BE OMITTED. This clinical summary was aggregated from multiple sources. Caution should be exercised in using it in the provision of clinical care. This summary normalizes information from multiple sources, and as a consequence, information in this document may materially change the coding, format and clinical context of patient data. In addition, data may be omitted in some cases. CLINICAL DECISIONS SHOULD BE BASED ON THE PRIMARY CLINICAL RECORDS. [employer] provides no warranty or guarantee of the accuracy or completeness of information in this document.
[2023-09-29 12:20] LABS: Bilirubin Urine NEGATIVE (NEGATIVE); Blood Urine NEGATIVE (NEGATIVE); Clarity Urine CLEAR (CLEAR); Color Urine YELLOW (YELLOW); Glucose Urine UA NEGATIVE (NEGATIVE); Ketones Urine TRACE mg/dL (NEGATIVE); Leukocyte Esterase Urine NEGATIVE (NEGATIVE); Nitrite Urine NEGATIVE (NEGATIVE); Protein Urine NEGATIVE (NEG/TRACE); Specific Gravity Urine >=1.030 (1.005-1.025); Urobilinogen Urine 0.2 EU/dL (0.2-1.0)
[2023-09-29 12:39] LABS: Bacteria Urine MODERATE #/HPF (NONE SEEN); Crystals Seen? Seen #/HPF (None Seen); Mucus Urine LARGE (NONE SEEN); RBC Urine 0-2 #/HPF (0-2); Squamous Epithelial Cell Urine MODERATE #/LPF (NONE/RARE)
[2023-09-29 12:40] LABS: Calcium Oxalate Crystals Urine FEW; Cast Seen? NONE SEEN #/LPF (NONE SEEN)
== END 2023-09-29 11:52 | disposition home or self-care (01) ==
LOC: LAB 11:53
PROVIDERS: PCP Nurse Practitioner Family; Visit Provider Nurse Practitioner Family
DX: R30.0 Dysuria (principal)
CPT/HCPCS: 81001; 87086

== ENCOUNTER 2023-10-02 14:29 | Outpatient (OUT) | payer OTHER, SELFPAY ==
--- OUTSIDE RECORDS SUMMARY | 2023-10-02 14:34 | XMS_ITS | CCD ---
Author Organization [facility] [employer] Care Team Providers Care Abseiling Instructor Name Role Phone MD Boyd Herrera Primary Care Provider [phone] NORTH Reis Attending Provider CHATO, JENNY Admitting Unavailable CHATO, JENNY Attending [...] Attending Provider MD Huey Sims Referring Provider [phone] MD Boyd Herrera Primary Care Provider TATUM Duran Attending Provider MD Huey Sims Referring Provider [phone] BLAYNE Dillard Attending Provider [phone] MD Boyd Herrera Primary Care Provider BLAYNE Dillard Attending Provider NORTH Reis Attending Provider TATUM Duran Attending Provider MD Huey Sims Referring Provider [phone] TATUM Duran Attending Provider MD Huey Sims Referring Provider [phone] MD Boyd Herrera Primary Care Provider [phone] BLAYNE Dillard Attending Provider [phone] Boyd Herrera Primary Care Unavailable Jenny Reis [...] Unknown Reaction, Gastrointestinal Upset [facility] Repository (2 sources) pioglitazone Drug Allergy [facility] Repository (2 sources) Sulfonamides (Antibiotic) Drug allergy (disorder) 12-19-19 14 [facility] Repository (8 sources) pioglitazone; Translations: [pioglitazone] Drug Allergy 11-05-19 Gastrointestinal Upset [facility] (8 sources) Sulfonamides (Antibiotic); Translations: [Sulfa (Sulfonamide Antibiotics)] Propensity to adverse reactions 08-27-19 Unknown Reaction, Difficulty Breathing [facility] (1 source) metFORMIN Drug Allergy 03-26-19 [facility] Repository (1 source) Acarbose; Translations: [ACARBOSE] Drug Allergy 08-27-19 [facility] Repository (1 source) metFORMIN; Translations: [METFORMIN HCL] Drug Allergy 08-27-19 [facility] Repository Medications Current Medications Medication Drug Class(es) [...] 06-02-2023 Episodic Other aftercare (3 sources) 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 [address] Eosinophils (Bld) [#/Vol] 0.11 10*3/uL Normal 0.00-0.50 [facility] Comment on above: Performed By: #### L [id number] #### [facility] (BEAKER) [address] [place] [address] Eosinophils/100 WBC (Bld) 1.2 % Normal 0.0-6.0 [facility] Comment on above: Performed By: #### L [id number] #### [facility] (BEAKER) [address] [place] [address] Erythrocyte distribution width (RBC) [Ratio] 13.5 % Normal 11.5-15.0 [facility] Comment on above: Performed By: #### L [id number] #### [facility] ([facility]) [address] [place] [address] ERYTHROCYTE MEAN CORPUSCULAR HEMOGLOBIN CONCENTRATION (G/DL) BY AUTOMATED 34.3 g/dL Normal 32.0-35.0 [facility] Comment on above: Performed By: #### L [id number] #### [facility] ([facility]AK[facility]) [address] [place] [address] Hematocrit (Bld) [Volume fraction] 40.5 % Normal 36.0-48.0 [facility] Comment on above: Performed By: #### L [id number] #### [facility] (BEAKER) [address] [place] [address] Hemoglobin (Bld) [Mass/Vol] 13.9 g/dL Normal 12.0-15.0 [facility] Comment on above: Performed By: #### L [id number] #### [facility] ([facility] [address] [place] [address] Immature granulocytes (Bld) [#/Vol] 0.02 10*3/uL Normal 0.00-0.20 [facility] Comment on above: Performed By: #### L [id number] #### [facility] ([facility]) [address] [place] [address] Immature granulocytes/100 WBC (Bld) 0.2 % Normal 0.0-1.0 [facility] Comment on above: Performed By: #### L [id number] #### [facility] ([facility] [address] [facility] [place] [address] Lymphocytes (Bld) [#/Vol] 3.01 10*3/uL Normal 1.20-4.00 [facility] Comment on above: Performed By: #### L [id number] #### [facility] ([facility] [address] [place] [address] Lymphocytes/100 WBC (Bld) 31.7 % Normal 20.0-45.0 [facility] Comment on above: Performed By: #### L [id number] #### [facility] ([facility] [address] [place] [address] MCH (RBC) [Entitic mass] 30.6 pg Normal 27.0-33.0 [facility] Comment on above: Performed By: #### L [id number] #### [facility] (BEAKER) [address] [place] [address] MCV (RBC) [Entitic vol] 89.2 fL Normal 82.0-98.0 [facility] Comment on above: Performed By: #### L [id number] #### [facility] ([facility]) [address] [place] [address] Monocytes (Bld) [#/Vol] 0.36 10*3/uL Normal 0.10-1.00 [facility] Comment on above: Performed By: #### L [id number] #### [facility] ([facility]) [address] [place] [address] Monocytes/100 WBC (Bld) 3.8 % Low 5.0-12.0 [facility] Comment on above: Performed By: #### L [id number] #### [facility] ([facility]) [address] [place] [address] Neutrophils (Bld) [#/Vol] 5.95 10*3/uL Normal 1.60-7.60 [facility] Comment on above: Performed By: #### L [id number] #### [facility] ([facility]) [address] [place] [address] Neutrophils/100 WBC (Bld) 62.7 % Normal 40.0-72.0 [facility] Comment on above: Performed By: #### L [id number] #### [facility] ([facility]) [address] [place] [address] NRBC (PER 100 WBCS) BY AUTOMATED COUNT 0.0 % Normal 0 [facility] Comment on above: Performed By: #### L [id number] #### [facility] ([facility]) [address] [place] [address] PLATELETS (10*3/UL) IN BLOOD AUTOMATED COUNT 313 10*3/uL Normal 150-400 [facility] Comment on above: Performed By: #### L [id number] #### [facility] ([facility]) [address] [place] [address] RBC (Bld) [#/Vol] 4.54 10*6/uL Normal 3.80-5.00 [facility] Comment on above: Performed By: #### L [id number] #### [facility] ([facility] [address] [place] [address] WBC (Bld) [#/Vol] 9.49 10*3/uL Normal 4.00-10.60 [facility] Comment on above: Performed By: #### L [id number] #### [facility] (BEAKER) [address] [place] [address] COMPREHENSIVE METABOLIC PANE Raimundo 09-21-2023 Albumin [Mass/Vol] 4.5 g/dL Normal 3.5-5.7 [facility] Comment on above: Performed By: #### L [id number] #### [facility] ([facility] [address] [place] [address] ALP [Catalytic activity/Vol] 59 U/L Normal 34-104 [facility] Comment on above: Performed By: #### L [id number] #### [facility] ([facility] [address] [place] [address] ALT [Catalytic activity/Vol] 21 U/L Normal 7-52 [facility] Comment on above: Performed By: #### L [id number] #### [facility] ([facility] [address] [place] [address] Anion gap [Moles/Vol] 12 mmol/L Normal 7-20 [facility] Comment on above: Performed By: #### L [id number] #### [facility] ([facility]) [address] [place] [address] AST [Catalytic activity/Vol] 17 U/L Normal 13-39 [facility] Comment on above: Performed By: #### L [id number] #### [facility] ([facility]) [address] [place] [address] Bilirubin [Mass/Vol] 0.5 mg/dL Normal 0.3-1.0 [facility] Comment on above: Performed By: #### L [id number] #### [facility] ([facility]) [address] [place] [address] Calcium [Mass/Vol] 9.1 mg/dL Normal 8.6-10.3 [facility] Comment on above: Performed By: #### L [id number] #### [facility] ([facility]) [address] [place] [address] Chloride [Moles/Vol] 108 mmol/L High 98-107 [facility] Comment on above: Performed By: #### L [id number] #### [facility] ([facility]) [address] [place] [address] CO2 [Moles/Vol] 23 mmol/L Normal 21-31 [facility] Comment on above: Performed By: #### L [id number] #### [facility] ([facility]) [address] [place] [address] Creatinine [Mass/Vol] 1.16 mg/dL Normal 0.60-1.20 [facility] Comment on above: Performed By: #### L [id number] #### [facility] ([facility]) [address] [place] [address] GLOMERULAR FILTRATION RATE ML/MIN/1.73 SQ M.PREDICTED 60.4 mL/min/1.73m*2 Normal >60.0 [facility] Comment on above: Result Comment: The [facility]???s estimated glomerular filtration rate (eGFR) will no [...] individuals. Performed By: #### L [id number] #### [facility] ([facility]) [address] [place] [address] Glucose [Mass/Vol] 90 mg/dL Normal 70-100 [facility] Comment on above: Performed By: #### L [id number] #### [facility] ([facility]) [address] [place] [address] Potassium [Moles/Vol] 3.9 mmol/L Normal 3.5-5.1 [facility] Comment on above: Performed By: #### L [id number] #### [facility] ([facility]AKER) [address] [place] [address] Protein [Mass/Vol] 7.1 g/dL Normal 6.0-8.3 [facility] Comment on above: Performed By: #### L [id number] #### [facility] ([facility]ER) [address] [place] [address] Sodium [Moles/Vol] 139 mmol/L Normal 136-145 [facility] Comment on above: Performed By: #### L [id number] #### [facility] ([facility]ER) [address] [place] [address] Urea nitrogen [Mass/Vol] 13 mg/dL Normal 7-25 [facility] Comment on above: Performed By: #### L [id number] #### [facility] ([facility]ER) [address] [place] [address] UREA NITROGEN/CREATININE (MASS RATIO) IN SER/PLAS 11.2 Normal [facility] Comment on above: Performed By: #### L [id number] #### [facility] ([facility]AKER) [address] [place] [address] Follow-Upon 09-21-2023 Follow-Up [id number] Delicia Serrano 1980 F Date Provider Department [...] Father's Sister Father's Brother Brother Level of Service:45546 [place] OFFICE/OUTPATIENT ESTABLISHED MOD MDM 30 MIN (GC) Reason for Visit and Comments: Arthritis [[id number]] - 3 month follow up Normal [facility] HEMOGLOBIN A1Con 09-21-2023 Glucose [Mass/Vol] 105 mg/dL Normal [facility] Comment on above: Performed By: #### L [id number] ####[facility] (BEAKER)[address] [place] [address] HbA1c (Bld) [Mass fraction] 5.3 % Normal 4.0-6.0 [facility] Comment on above: Performed By: #### L [id number] ####[facility] (BEAKER)[address] [place] [address] 36on 08-13-2023 36 Last visit 06/30/23 Upcoming visit 09/21/23 Last cbc/cmp 06/30/23 Normal [facility] Abstracton 08-13-2023 Abstract [id number] Delicia Serrano 1980 F Date Provider Department Center 08/13/2023 SYLVIA BRAR [facility] RHEUM Heraclio Heal Family History Problem [...] Daughter Father's Sister Father's Brother Brother Normal [facility] Refillon 05-30-2024 Refill [id number] ShashiDelicia Mesa 1980 F Date Provider Department Center 08/13/2023 SYLVIA BR[facility] RHEUM Heraclio Heal Family History Problem [...] Reason for Visit and Comments: Med Refill [[id number]] [facility] ANEItz 08-06-2023 ANES ------ -- Attestation [...] lumbosacral region 03/30/2023 Lumbar spondylosis 03/30/2023 Other correction (current) drug therapy 03/23/2023 Seronegative arthritis 02/02/2023 [...] GI Symptoms Pioglitazone Other reaction(s): stomach upset 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 Normal [facility] HPon 08-06-2023 HP H&P reviewed. The long rodgers was examined and there are no changes to the H&P. Continues to have low back pain Normal [facility] NURSNOTEon 08-06-2023 NURSNOTE Interventional Pain Management Nursing Note / Nurse Post-Call S/P Left SIJ VM left with RTC reminder 08/07/23 1045 Follow Up (Summarize discussion in comments) Patient given contact information for surgery department and physician Yes Normal [facility] Prep for Procedureon 024 Prep for Procedure [id number] Delicia Serrano 1980 F Date Provider Department [...] Daughter Father's Sister Father's Brother Brother Normal [facility] Follow-Upon 07-09-2023 Follow-Up [id number] Delicia Serrano 1980 F Date Provider Department [...] Father's Sister Father's Brother Brother Level of Service:53687 [place] OFFICE/OUTPATIENT ESTABLISHED LOW MDM 20 MIN Reason for Visit and Comments: Back Pain [12] - ИВАН RFA L4/5 L5/S1 - 85%improvement Hip Pain [442513] - Left hip pain Normal [facility] COMPREHENSIVE METABOLIC PANE Raimundo 06-30-2023 Albumin [Mass/Vol] 4.5 g/dL Normal 3.5-5.7 [facility] Comment on above: Performed By: #### L [id number] #### [facility] ([facility]) [address] [place] [address] ALP [Catalytic activity/Vol] 85 U/L Normal 34-104 [facility] Comment on above: Performed By: #### L [id number] #### [facility] ([facility]) [address] [place] [address] ALT [Catalytic activity/Vol] 19 U/L Normal 7-52 [facility] Comment on above: Performed By: #### L [id number] #### [facility] ([facility]) [address] [place] [address] Anion gap [Moles/Vol] 11 mmol/L Normal 7-20 [facility] Comment on above: Performed By: #### L [id number] #### [facility] ([facility]ER) [address] [place] [address] AST [Catalytic activity/Vol] 18 U/L Normal 13-39 [facility] Comment on above: Performed By: #### L [id number] #### [facility] ([facility]ER) [address] [place] [address] Bilirubin [Mass/Vol] 0.5 mg/dL Normal 0.3-1.0 [facility] Comment on above: Performed By: #### L [id number] #### [facility] ([facility]) [address] [place] [address] Calcium [Mass/Vol] 9.6 mg/dL Normal 8.6-10.3 [facility] Comment on above: Performed By: #### L [id number] #### [facility] ([facility]) [address] [place] [address] Chloride [Moles/Vol] 104 mmol/L Normal 98-107 [facility] Comment on above: Performed By: #### L [id number] #### [facility] ([facility]) [address] [place] [address] CO2 [Moles/Vol] 26 mmol/L Normal 21-31 [facility] Comment on above: Performed By: #### L [id number] #### [facility] ([facility]) [address] [place] [address] Creatinine [Mass/Vol] 0.97 mg/dL Normal 0.60-1.20 [facility] Comment on above: Performed By: #### L [id number] #### [facility] ([facility]) [address] [place] [address] GLOMERULAR FILTRATION RATE ML/MIN/1.73 SQ M.PREDICTED 74.8 mL/min/1.73m*2 Normal >60.0 [facility] Comment on above: Result Comment: The [facility]???s estimated glomerular filtration rate (eGFR) will no [...] individuals. Performed By: #### L [id number] #### [facility] (BEAKER) [address] [place] [address] Glucose [Mass/Vol] 93 mg/dL Normal 70-100 [facility] Comment on above: Performed By: #### L [id number] #### [facility] ([facility] [address] [place] [address] Potassium [Moles/Vol] 3.9 mmol/L Normal 3.5-5.1 [facility] Comment on above: Performed By: #### L [id number] #### [facility] ([facility] [address] [place] [address] Protein [Mass/Vol] 7.0 g/dL Normal 6.0-8.3 [facility] Comment on above: Performed By: #### L [id number] #### [facility] ([facility] [address] [place] [address] Sodium [Moles/Vol] 137 mmol/L Normal 136-145 [facility] Comment on above: Performed By: #### L [id number] #### [facility] ([facility] [address] [place] [address] Urea nitrogen [Mass/Vol] 17 mg/dL Normal 7-25 [facility] Comment on above: Performed By: #### L [id number] #### [facility] ([facility] [address] [place] [address] UREA NITROGEN/CREATININE (MASS RATIO) IN SER/PLAS 17.5 Normal [facility] Comment on above: Performed By: #### L [id number] #### [facility] ([facility]) [address] [place] [address] Follow-Upon 06-30-2023 Follow-Up [id number] Delicia Serrano 1980 F Date Provider Department Center 06/30/2023 Sabrina4CHRISTIANNE SABILLON [facility] R[facility]UM Heraclio Heal Family History Problem [...] Father's Sister Father's Brother Brother Level of Service:81957 [place] OFFICE/OUTPATIENT ESTABLISHED MOD MDM 30 MIN (GC) Reason for Visit and Comments: Follow-up [[id number]] Normal [facility] HEMOGLOBIN A1Con 06-30-2023 Glucose [Mass/Vol] 88 mg/dL Normal [facility] Comment on above: Performed By: #### L [id number] #### [facility] ([facility]) [address] [place] [address] HbA1c (Bld) [Mass fraction] 4.7 % Normal 4.0-6.0 [facility] Comment on above: Performed By: #### L [id number] #### [facility] ([facility]ER) [address] [place] [address] Labon 06-30-2023 Lab [id number] Delicia Serrano 1980 F Date Provider Department Center 06/30/2023 [id number] LAB RESOURCE MP DRAW [...] Daughter Father's Sister Father's Brother Brother Normal [facility] URINALYSISon 06-30-2023 BILIRUBIN, TOTAL PRESENCE IN URINE Negative Normal Negative [facility] Comment on above: Order Comment: Micro scopics not performed on urines with negative chemical reactions unless requested on original order. Performed By: #### L [id number] #### [facility] ([facility] [address] [place] [address] Clarity (U) Clear Normal Clear [facility] Comment on above: Order Comment: Micro scopics not performed on urines with negative chemical reactions unless requested on original order. Performed By: #### L [id number] #### [facility] ([facility]) [address] [place] [address] Color (U) Straw Abnormal Yellow [facility] Comment on above: Order Comment: Micro scopics not performed on urines with negative chemical reactions unless requested on original order. Performed By: #### L [id number] #### [facility] ([facility]) [address] [place] [address] Glucose (U) [Mass/Vol] Negative Normal [facility] Comment on above: Order Comment: Micro scopics not performed on urines with negative chemical reactions unless requested on original order. Performed By: #### L [id number] #### [facility] ([facility]) [address] [place] [address] HEMOGLOBIN PRESENCE IN URINE Negative Normal Negative [facility] Comment on above: Order Comment: Micro scopics not performed on urines with negative chemical reactions unless requested on original order. Performed By: #### L [id number] #### [facility] ([facility] [address] [place] [address] Ketones Ql (U) Negative Normal Negative [facility] Comment on above: Order Comment: Micro scopics not performed on urines with negative chemical reactions unless requested on original order. Performed By: #### L [id number] #### [facility] ([facility]) [address] [place] [address] LEUKOCYTE ESTERASE PRESENCE IN URINE BY TEST STRIP Negative Normal Negative [facility] Comment on above: Order Comment: Micro scopics not performed on urines with negative chemical reactions unless requested on original order. Performed By: #### L [id number] #### [facility] ([facility]) [address] [place] [address] NITRITE PRESENCE IN URINE Negative Normal Negative [facility] Comment on above: Order Comment: Micro scopics not performed on urines with negative chemical reactions unless requested on original order. Performed By: #### L [id number] #### [facility] ([facility]) [address] [address] pH (U) 5.0 [pH] Normal 5.0-8.0 [facility] Comment on above: Order Comment: Micro scopics not performed on urines with negative chemical reactions unless requested on original order. Performed By: #### L [id number] #### [facility] ([facility]) [address] [place] [address] Protein (U) [Mass/Vol] Negative Normal Negative Un [facility] Comment on above: Order Comment: Micro scopics not performed on urines with negative chemical reactions unless requested on original order. Performed By: #### L [id number] #### [facility] ([facility]) [address] [place] [address] Specific gravity (U) [Rel density] 1.006 Low 1.015-1.020 [facility] Comment on above: Order Comment: Micro scopics not performed on urines with negative chemical reactions unless requested on original order. 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 [facility] NURSNOTEon 06-09-2023 NURSNOTE Interventional Pain Management [...] information for surgery department and physician Yes [facility] Prep for Procedureon 024 Prep for Procedure [id number] Delicia Serrano 1980 F Date Provider Department Center 06/09/2023 CARLOS ROWE MP [facility] Family History Problem Relation Age of Onset [...] Daughter Father's Sister Father's Brother Brother Normal [facility] Orders Onlyon 06-05-2023 Orders Only [id number] Delicia Serrano 1980 Provider Department Center 06/05/2023 [...] Daughter Father's Sister Father's Brother Brother Normal [facility] Prep for Procedureon 024 Prep for Procedure [id number] Delicia Serrano 1980 F Date Provider Department [...] Daughter Father's Sister Father's Brother Brother Normal [facility] BASIC METABOLIC PANELon 05-14 Anion gap [Moles/Vol] 11 mmol/L Normal 7-20 [facility] Comment on above: Performed By: #### L [id number] #### [facility] (BEAKER) [address] [place] [address] Calcium [Mass/Vol] 8.2 mg/dL Low 8.6-10.3 [facility] Comment on above: Performed By: #### L [id number] #### [facility] (BEAKER) [address] [place] [address] Chloride [Moles/Vol] 110 mmol/L High 98-107 [facility] Comment on above: Performed By: #### L [id number] #### [facility] (BEAKER) [address] [place] [address] CO2 [Moles/Vol] 23 mmol/L Normal 21-31 [facility] Comment on above: Performed By: #### L [id number] #### [facility] (BEAKER) [address] [place] [address] Creatinine [Mass/Vol] 0.91 mg/dL Normal 0.60-1.20 [facility] Comment on above: Performed By: #### L [id number] #### [facility] (BEAKER) [address] [place] [address] GLOMERULAR FILTRATION RATE ML/MIN/1.73 SQ M.PREDICTED 80.8 mL/min/1.73m*2 Normal >60.0 [facility] Comment on above: Result Comment: [facility]???s estimated glomerular filtration rate (eGFR) will no [...] individuals. Performed By: #### L [id number] #### [facility] ([facility]) [address] [place] [address] Glucose [Mass/Vol] 127 mg/dL High 70-100 [facility] Comment on above: Performed By: #### L [id number] #### [facility] ([facility]) [address] [place] [address] Potassium [Moles/Vol] 3.5 mmol/L Normal 3.5-5.1 [facility] Comment on above: Performed By: #### L [id number] #### [facility] ([facility]) [address] [place] [address] Sodium [Moles/Vol] 140 mmol/L Normal 136-145 [facility] Comment on above: Performed By: #### L [id number] #### [facility] ([facility]) [address] [place] [address] Urea nitrogen [Mass/Vol] 18 mg/dL Normal 7-25 [facility] Comment on above: Performed By: #### L [id number] #### [facility] ([facility]) [address] [place] [address] UREA NITROGEN/CREATININE (MASS RATIO) IN SER/PLAS 19.8 Normal [facility] Comment on above: Performed By: #### L [id number] #### [facility] ([facility]) [address] [facility] [place] [address] BLOOD CULTUREon 06-02-2023 Bacteria identified Cx Nom (Bld) No growth at 5 days Normal [facility] Comment on above: Performed By: #### L [id number] ####[facility] ([facility])[address] [place] [address] C3 COMPLEMENTon 06-02-2023 Magnesium [Mass/Vol] 142.00 mg/dL Normal 79.00-1 52.0 0 [facility] Comment on above: Performed By: #### L [id number] #### [facility] (BEAKER) [address] [place] [address] C4 COMPLEMENTon 06-02-2023 Magnesium [Mass/Vol] 38.9 mg/dL High 16-38 [facility] Comment on above: Performed By: #### L [id number] ####[facility] (BEAKER)[address] [place] [address] Follow-Upon 06-02-2023 Follow-Up [id number] Delicia Serrano 1980 F Date Provider Department [...] Father's Sister Father's Brother Brother Level of Service:549[address] [place] OFFICE/OUTPATIENT ESTABLISHED MOD MDM 30 MIN Reason for Visit and Comments: Follow-up [010956] - generalized pain; 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 Normal [facility] Labon 06-02-2023 Lab [id number] Delicia Serrano 1980 F Date Provider Department Center 06/02/2023 2244-[facility] MP LAB RESOURCE MP DRAW [...] Daughter Father's Sister Father's Brother Brother Normal [facility] URINALYSISon 06-02-2023 BILIRUBIN, TOTAL PRESENCE IN URINE Negative Normal Negative [facility] Comment on above: Performed By: #### L [id number] #### [facility] (BEAKER) [address] [place] [address] Clarity (U) Slightly Cloudy Abnormal Clear [facility] Comment on above: Performed By: #### L [id number] #### [facility] (BEAKER) [address] [place] [address] Color (U) Dinora Abnormal Yellow [facility] Comment on above: Performed By: #### L [id number] #### [facility] (BEAKER) [address] [place] [address] Glucose (U) [Mass/Vol] Negative Normal Negative [facility] Comment on above: Performed By: #### L [id number] #### [facility] (BEAKER) [address] [place] [address] HEMOGLOBIN PRESENCE IN URINE Negative Normal Negative [facility] Comment on above: Performed By: #### L [id number] #### [facility] (BEAKER) [address] [place] [address] Ketones Ql (U) Negative Normal Negative [facility] Comment on above: Performed By: #### L [id number] #### [facility] (BEAKER) [address] [place] [address] LEUKOCYTE ESTERASE PRESENCE IN URINE BY TEST STRIP Negative Normal Negative [facility] Comment on above: Performed By: #### L [id number] #### [facility] ([facility]) [address] [place] [address] NITRITE PRESENCE IN URINE Negative Normal Negative [facility] Comment on above: Performed By: #### L [id number] #### [facility] ([facility]) [address] [place] [address] pH (U) 5.0 [pH] Normal 5.0-8.0 [facility] Comment on above: Performed By: #### L [id number] #### [facility] ([facility]) [address] [place] [address] Protein (U) [Mass/Vol] 30 mg/dL Abnormal Negative [facility] Comment on above: Performed By: #### L [id number] #### [facility] ([facility]) [address] [place] [address] Specific gravity (U) [Rel density] 1.027 High 1.015-1.020 [facility] Comment on above: Performed By: #### L [id number] #### [facility] ([facility]) [address] [place] [address] URINALYSIS MICROSCOPICon CALCIUM OXALATE CRYSTALS (#/HPF) IN URINE Many Abnormal None Seen [facility] Comment on above: Performed By: #### L [id number] #### [facility] ([facility]) [address] [place] [address] CASTS IN URINE Normal [facility] Comment on above: Performed By: #### L [id number] #### [facility] ([facility]) [address] [place] [address] CRYSTALS IN URINE Present Abnormal None Seen [facility] Comment on above: Performed By: #### L [id number] #### [facility] ([facility]) [address] [place] [address] MUCUS (#/HPF) IN URINE SEDIMENT Few Normal None Seen, Occasional, Few [facility] Comment on above: Performed By: #### L [id number] #### [facility] ([facility]) [address] [place] [address] RBC (#/HPF) IN URINE SEDIMENT 3-5 Abnormal None Seen [facility] Comment on above: Performed By: #### L [id number] #### [facility] ([facility]) [address] [place] [address] SQUAMOUS EPITHELIAL CELLS (#/HPF) IN URINE SEDIMENT Many Abnormal None Seen, Occasional [facility] Comment on above: Performed By: #### L [id number] #### [facility] ([facility]) [address] [place] [address] WBC (LEUKOCYTE) (#/HPF) IN URINE SEDIMENT 3-5 Abnormal None Seen [facility] Comment on above: Performed By: #### L [id number] #### [facility] ([facility]) [address] [place] [address] URINE CULTURE, ROUTINEon Bacteria identified Cx Nom (U) GARDNERELLA VAGINALIS Abnormal [facility] Comment on above: Result Comment: 50,0 00 - 100,000 CFU/Ml Gardnerella vaginalis Presumptive Identification Performed By: #### L [id number] ####[facility] ([facility])[address] [place] [address] 36on 06-01-2023 36 PT calling stating t he following: generalized pain; 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 PT reports having cough since Thanksgi and fever in the last 3 weeks since Lumbar puncture performed at [facility]. APPT offered for Thursday, 06/01. Scheduled to be evaluated. ric Normal [facility] HPon 05-19-2023 HP History Of Present I [...] Arthritis Maternal Grandfather Dominick Cancer Maternal Grandfather [place] Diabetes Maternal Grandfather Dominick Stroke Maternal Grandfather [place] Arthritis Maternal Grandmother Raydene Cancer Maternal [...] Hospital Problems. bilateral RFA L4-L5, L5-S1. Normal [facility] HP History Of Present I llness Delicia [...] Diabetes Maternal Grandfather Dominick Stroke Maternal Grandfather [place] Arthritis Maternal Grandmother Raydene Cancer Maternal [...] Type: Acute pain (more content not included)... [facility] NURSNOTEon 05-19-2023 NURSNOTE Interventional Pain Management Nursing Note / Nurse Post-Call Note Narrative Pt stated she received 80% relief for 6hrs post MBB #2 L4/5,L5/S1. Will schedule RFA. [facility] 36on 05-12-2023 36 Last visit 03/23/23 Upcoming visit 06/23/23 Last cbc/cmp 04/21/23 [facility] Refillon 05-12-2023 Refill [id number] Delicia Serrano 1980 Date Provider Department Center [...] Reason for Visit and Comments: Med Refill [[id number]] [facility] Prep for Procedureon 024 Prep for Procedure [id number] Delicia Serrano 1980 Date Provider Department Center [...] Daughter Father's Sister Father's Brother Brother Normal [facility] CBC WITH AUTO DIFFERENTIALon 04-21-2023 Basophils (Bld) [#/Vol] 0.05 10*3/uL Normal 0.00-0.20 [facility] Comment on above: Performed By: #### L [id number] ####[facility] (BEAKER)[address] [place] [address] Basophils/100 WBC (Bld) 0.5 % Normal 0.0-1.0 [facility] Comment on above: Performed By: #### L [id number] ####[facility] (BEAKER)[address] [place] [address] Eosinophils (Bld) [#/Vol] 0.16 10*3/uL Normal 0.00-0.50 [facility] Comment on above: Performed By: #### L [id number] ####[facility] (BEAKER)[address] [place] [address] Eosinophils/100 WBC (Bld) 1.7 % Normal 0.0-6.0 [facility] Comment on above: Performed By: #### L [id number] ####[facility] (BEAKER)[address] [place] [address] Erythrocyte distribution width (RBC) [Ratio] 15.5 % High 11.5-15.0 [facility] Comment on above: Performed By: #### L [id number] ####[facility] (BEAKER)[address] [place] [address] ERYTHROCYTE MEAN CORPUSCULAR HEMOGLOBIN CONCENTRATION (G/DL) BY AUTOMATED 32.0 g/dL Normal 32.0-35.0 [facility] Comment on above: Performed By: #### L [id number] ####[facility] (BEAKER)[address] [place] [address] Hematocrit (Bld) [Volume fraction] 41.2 % Normal 36.0-48.0 [facility] Comment on above: Performed By: #### L [id number] ####[facility] (BEAKER)[address] [place] [address] Hemoglobin (Bld) [Mass/Vol] 13.2 g/dL Normal 12.0-15.0 [facility] Comment on above: Performed By: #### L [id number] ####[facility] (BEAKER)[address] [place] [address] Immature granulocytes (Bld) [#/Vol] 0.04 10*3/uL Normal 0.00-0.20 [facility] Comment on above: Performed By: #### L [id number] ####[facility] (BEAKER)[address] [place] [address] Immature granulocytes/100 WBC (Bld) 0.4 % Normal 0.0-1.0 [facility] Comment on above: Performed By: #### L [id number] ####[facility] (BEAKER)[address] [place] [address] Lymphocytes (Bld) [#/Vol] 2.02 10*3/uL Normal 1.20-4.00 [facility] Comment on above: Performed By: #### L [id number] ####[facility] (BEAKER)[address] [place] [address] Lymphocytes/100 WBC (Bld) 22.1 % Normal 20.0-45.0 [facility] Comment on above: Performed By: #### L [id number] ####[facility] (BEAKER)[address] [place] [address] MCH (RBC) [Entitic mass] 30.0 pg Normal 27.0-33.0 [facility] Comment on above: Performed By: #### L [id number] ####[facility] [place] [address] MCV (RBC) [Entitic vol] 93.6 fL Normal 82.0-98.0 [facility] Comment on above: Performed By: #### L [id number] ####[facility] ([facility])[address] [place] [address] Monocytes (Bld) [#/Vol] 0.36 10*3/uL Normal 0.10-1.00 [facility] Comment on above: Performed By: #### L [id number] ####[facility] ([facility])[address] [place] [address] Monocytes/100 WBC (Bld) 3.9 % Low 5.0-12.0 [facility] Comment on above: Performed By: #### L [id number] ####[facility] ([facility])[address] [place] [address] Neutrophils (Bld) [#/Vol] 6.52 10*3/uL Normal 1.60-7.60 [facility] Comment on above: Performed By: #### L [id number] ####[facility] ([facility])[address] [place] [address] Neutrophils/100 WBC (Bld) 71.4 % Normal 40.0-72.0 [facility] Comment on above: Performed By: #### L [id number] ####[facility] ([facility])[address] [place] [address] NRBC (PER 100 WBCS) BY AUTOMATED COUNT 0.0 % Normal 0 [facility] Comment on above: Performed By: #### L [id number] ####[facility] (BEAKER)[address] [place] [address] PLATELETS (10*3/UL) IN BLOOD AUTOMATED COUNT 339 10*3/uL Normal 150-400 [facility] Comment on above: Performed By: #### L [id number] ####[facility] ([facility])[address] [place] [address] RBC (Bld) [#/Vol] 4.40 10*6/uL Normal 3.80-5.00 [facility] Comment on above: Performed By: #### L [id number] ####[facility] ([facility])[address] [place] [address] WBC (Bld) [#/Vol] 9.15 10*3/uL Normal 4.00-10.60 [facility] Comment on above: Performed By: #### L [id number] ####[facility] ([facility])[address] [place] [address] COMPREHENSIVE METABOLIC PANE Raimundo 04-21-2023 Albumin [Mass/Vol] 4.6 g/dL Normal 3.5-5.7 [facility] Comment on above: Performed By: #### L [id number] #### [facility] ([facility]) [address] [place] [address] ALP [Catalytic activity/Vol] 73 U/L Normal 34-104 [facility] Comment on above: Performed By: #### L [id number] #### [facility] ([facility]) [address] [place] [address] ALT [Catalytic activity/Vol] 20 U/L Normal 7-52 [facility] Comment on above: Performed By: #### L [id number] #### [facility] ([facility]) [address] [place] [address] Anion gap [Moles/Vol] 11 mmol/L Normal 7-20 [facility] Comment on above: Performed By: #### L [id number] #### [facility] ([facility] [address] [place] [address] AST [Catalytic activity/Vol] 17 U/L Normal 13-39 [facility] Comment on above: Performed By: #### L [id number] #### [facility] (BEAKER) [address] [place] [address] Bilirubin [Mass/Vol] 0.3 mg/dL Normal 0.3-1.0 [facility] Comment on above: Performed By: #### L [id number] #### [facility] ([facility] [address] [place] [address] Calcium [Mass/Vol] 9.1 mg/dL Normal 8.6-10.3 [facility] Comment on above: Performed By: #### L [id number] #### [facility] ([facility] [address] [place] [address] Chloride [Moles/Vol] 105 mmol/L Normal 98-107 [facility] Comment on above: Performed By: #### L [id number] #### [facility] ([facility]) [address] [place] [address] CO2 [Moles/Vol] 25 mmol/L Normal 21-31 [facility] Comment on above: Performed By: #### L [id number] #### [facility] ([facility] [address] [place] [address] Creatinine [Mass/Vol] 1.03 mg/dL Normal 0.60-1.20 [facility] Comment on above: Performed By: #### L [id number] #### [facility] ([facility]) [address] [place] [address] GLOMERULAR FILTRATION RATE ML/MIN/1.73 SQ M.PREDICTED 70.1 mL/min/1.73m*2 Normal >60.0 [facility] Comment on above: Result Comment: [facility]???s estimated glomerular filtration rate (eGFR) will no [...] individuals. Performed By: #### L [id number] #### [facility] ([facility]) [address] [place] [address] Glucose [Mass/Vol] 108 mg/dL High 70-100 [facility] Comment on above: Performed By: #### L [id number] #### [facility] ([facility]) [address] [place] [address] Potassium [Moles/Vol] 3.4 mmol/L Low 3.5-5.1 [facility] Comment on above: Performed By: #### L [id number] #### [facility] ([facility]) [address] [place] [address] Protein [Mass/Vol] 7.1 g/dL Normal 6.0-8.3 [facility] Comment on above: Performed By: #### L [id number] #### [facility] ([facility]) [address] [place] [address] Sodium [Moles/Vol] 138 mmol/L Normal 136-145 [facility] Comment on above: Performed By: #### L [id number] #### [facility] ([facility]) [address] [place] [address] Urea nitrogen [Mass/Vol] 16 mg/dL Normal 7-25 [facility] Comment on above: Performed By: #### L [id number] #### [facility] ([facility]) [address] [place] [address] UREA NITROGEN/CREATININE (MASS RATIO) IN SER/PLAS 15.5 Normal [facility] Comment on above: Performed By: #### L [id number] #### [facility] ([facility]) [address] [place] [address] HPon 04-21-2023 HP H&P reviewed. The pa ana maria was examined and there are no changes to the H&P. Patient continues to have back pain in her lumbar Normal [facility] Labon 04-21-2023 Lab [id number] Delicia Serrano 1980 F Date Provider Department Center 04/21/2023 2244-[facility] MP LAB RESOURCE MP DRAW [...] Son Daughter Father's Sister Father's Brother Brother [facility] NURSNOTEon 04-21-2023 NURSNOTE Interventional Pain Management [...] instruction. Plan for MBB#2 on May 16 [facility] POCT GLUCOSE METER UNSOLICIT ED RESULTSon 04-21-2023 Glucose [Mass/Vol] 112 mg/dL High 70-105 [facility] Comment on above: Order Comment: Waive d Testing in the ED is performed under the ED CLIA certificate #[id number]. Result Comment: mweb er Performed By: #### L [id number] ####[facility] (BEAKER)[address] [place] [address] Prep for Procedureon 024 Prep for Procedure [id number] Delicia Serrano E 1980 F Date Provider [...] Daughter Father's Sister Father's Brother Brother Normal [facility] Prep for Procedureon 024 Prep for Procedure [id number] Delicia Serrano 1980 F Date Provider Department Center 04/15/2023 3905-[facility] [employer] Pavi Family History Problem Relation Age of [...] Daughter Father's Sister Father's Brother Brother Normal [facility] Aerobic Cultureon 03-26-2023 Aerobic Culture CULTURE ADD [...] No White Blood Cells Seen PERFORMED BY: [place] [address] PATHOLOGIST RESTAURANT AND BAR MANAGER JUNIOR [employer]EN M.D. [facility] Comment on above: Performed By: #### C SF GLU, CSFCCDIFF, CSF TP #2, CSFCCDIFF #2, CSF TP, CSF GLU #2 #### [address] Cell Count Differential,CSFo n 03-26-2023 Appearance, CSF Clear Normal Clear [facility] Comment on above: Order Comment: Comme nt TUBE 1 Performed By: #### C SF GLU, CSFCCDIFF, CSF TP #2, CSFCCDIFF #2, CSF TP, CSF GLU #2 #### [address] Color, CSF Colorless Normal Colorless [facility] Comment on above: Order Comment: Comme nt TUBE 1 Performed By: #### C SF GLU, CSFCCDIFF, CSF TP #2, CSFCCDIFF #2, CSF TP, CSF GLU #2 #### [address] CSF Supernatant Color Colorless Normal Colorless [facility] Comment on above: Order Comment: Comme nt TUBE 1 Performed By: #### C SF GLU, CSFCCDIFF, CSF TP #2, CSFCCDIFF #2, CSF TP, CSF GLU #2 #### [facility] [address] [place] [address] [place] CSF Volume, Total 12.[address] [facility] Comment on above: Order Comment: Comme nt TUBE 1 Performed By: #### C SF GLU, CSFCCDIFF, CSF TP #2, CSFCCDIFF #2, CSF TP, CSF GLU #2 #### [facility] [address] [place] [address] [place] Lymphocytes, CSF 56 % Normal 40-80 [facility] Comment on above: Order Comment: Comme nt TUBE 1 Performed By: #### C SF GLU, CSFCCDIFF, CSF TP #2, CSFCCDIFF #2, CSF TP, CSF GLU #2 #### [address] Monocytes, CSF 43 % Normal 15-45 [facility] Comment on above: Order Comment: Comme nt TUBE 1 Performed By: #### C SF GLU, CSFCCDIFF, CSF TP #2, CSFCCDIFF #2, CSF TP, CSF GLU #2 #### [address] Neutrophils, CSF 1 % Normal 0-6 [facility] Comment on above: Order Comment: Comme nt TUBE 1 Performed By: #### C SF GLU, CSFCCDIFF, CSF TP #2, CSFCCDIFF #2, CSF TP, CSF GLU #2 #### [address] RBC, CSF 11 /uL Normal [facility] Comment on above: Order Comment: Comme nt TUBE 1 Result Comment: The reference interval and other method performance specifications have not been established for this body fluid. The test result must be integrated into the clinical context for interpretation. Performed By: #### C SF GLU, CSFCCDIFF, CSF TP #2, CSFCCDIFF #2, CSF TP, CSF GLU #2 #### [address] TNC, CSF 2 /uL Normal 0-5 [facility] Comment on above: Order Comment: Comme nt TUBE 1 Performed By: #### C SF GLU, CSFCCDIFF, CSF TP #2, CSFCCDIFF #2, CSF TP, CSF GLU #2 #### [address] Total Count, CSF 100 Normal [facility] Comment on above: Order Comment: Comme nt TUBE 1 Performed By: #### C SF GLU, CSFCCDIFF, CSF TP #2, CSFCCDIFF #2, CSF TP, CSF GLU #2 #### [facility] [address] [place] [address] [place] Tube Number Tested, CSF Tube Number: 1 Normal [facility] Comment on above: Order Comment: Comme nt TUBE 1 Result Comment: PERF ORMED BY: [place] [address] PATHOLOGIST RESTAURANT AND BAR MANAGER J[employer]EN M.D. Performed By: #### C SF GLU, CSFCCDIFF, CSF TP #2, CSFCCDIFF #2, CSF TP, CSF GLU #2 #### [place] [address] [place] Cell Count Differential,CSF #2on 03-26-2023 Appearance, CSF Clear Normal Clear [facility] Comment on above: Order Comment: Comme nt TUBE 3 Performed By: #### C SF GLU, CSFCCDIFF, CSF TP #2, CSFCCDIFF #2, CSF TP, CSF GLU #2 #### [facility] [address] [place] [address] [place] Color, CSF Colorless Normal Colorless [facility] Comment on above: Order Comment: Comme nt TUBE 3 Performed By: #### C SF GLU, CSFCCDIFF, CSF TP #2, CSFCCDIFF #2, CSF TP, CSF GLU #2 #### [facility] [address] [place] [address] CSF Supernatant Color Colorless Normal Colorless [facility] Comment on above: Order Comment: Comme nt TUBE 3 Performed By: #### C SF GLU, CSFCCDIFF, CSF TP #2, CSFCCDIFF #2, CSF TP, CSF GLU #2 #### [facility] [address] [place] [address] [place] CSF Volume, Total 12.[address] [facility] Comment on above: Order Comment: Comme nt TUBE 3 Performed By: #### C SF GLU, CSFCCDIFF, CSF TP #2, CSFCCDIFF #2, CSF TP, CSF GLU #2 #### [facility] [address] [place] [address] [place] Lymphocytes, CSF 33 Normal [facility] Comment on above: Order Comment: Comme nt TUBE 3 Result Comment: The reference interval and other method performance specifications have not been established for this body fluid. The test result must be integrated into the clinical context for interpretation. Performed By: #### C SF GLU, CSFCCDIFF, CSF TP #2, CSFCCDIFF #2, CSF TP, CSF GLU #2 #### [facility] [address] [place] [address] Monocytes, CSF 10 Normal [facility] Comment on above: Order Comment: Comme nt TUBE 3 Result Comment: The reference interval and other method performance specifications have not been established for this body fluid. The test result must be integrated into the clinical context for interpretation. Performed By: #### C SF GLU, CSFCCDIFF, CSF TP #2, CSFCCDIFF #2, CSF TP, CSF GLU #2 #### [facility] [address] [place] [address] Neutrophils, CSF 0 Normal [facility] Comment on above: Order Comment: Comme nt TUBE 3 Result Comment: The reference interval and other method performance specifications have not been established for this body fluid. The test result must be integrated into the clinical context for interpretation. Performed By: #### C SF GLU, CSFCCDIFF, CSF TP #2, CSFCCDIFF #2, CSF TP, CSF GLU #2 #### [facility] [address] [place] [address] RBC, CSF 0 /uL Normal [facility] Comment on above: Order Comment: Comme nt TUBE 3 Result Comment: The reference interval and other method performance specifications have not been established for this body fluid. The test result must be integrated into the clinical context for interpretation. Performed By: #### C SF GLU, CSFCCDIFF, CSF TP #2, CSFCCDIFF #2, CSF TP, CSF GLU #2 #### [facility] [address] [place] [address] TNC, CSF 3 /uL Normal 0-5 [facility] Comment on above: Order Comment: Comme nt TUBE 3 Performed By: #### C SF GLU, CSFCCDIFF, CSF TP #2, CSFCCDIFF #2, CSF TP, CSF GLU #2 #### [place] [address] [place] Tube Number Tested, CSF Tube Number: 3 Normal [facility] Comment on above: Order Comment: Comme nt TUBE 3 Result Comment: PERF ORMED BY: [place] [address] PATHOLOGIST RESTAURANT AND BAR MANAGER JUNIOR GREEN M.D. Performed By: #### C SF GLU, CSFCCDIFF, CSF TP #2, CSFCCDIFF #2, CSF TP, CSF GLU #2 #### [place] [address] [place] Glucose, CSF #2on 03-26-2023 Glucose, CSF #2 82 mg/dL High 40-70 [facility] Comment on above: Order Comment: Comme nt TUBE 3 Performed By: #### C SF GLU, CSFCCDIFF, CSF TP #2, CSFCCDIFF #2, CSF TP, CSF GLU #2 #### [place] [address] [place] Glucose, Spinal Fluidon 03-16 Glucose, Spinal Fluid 80 mg/dL High 40-70 [facility] Comment on above: Order Comment: Comme nt TUBE 1 Performed By: #### C SF GLU, CSFCCDIFF, CSF TP #2, CSFCCDIFF #2, CSF TP, CSF GLU #2 #### [facility] [address] [place] [address] [place] Gram Stainon 03-26-2023 Microscopic observation Gram stain Nom (Unsp spec) CULTURE ADD ON PER DR. DILLARD Tube Number for CSF Microbiology: 2 Gram Stain Result No Bacteria Seen No White Blood Cells Seen PERFORMED BY: [place] [address] PATHOLOGIST RESTAURANT AND BAR MANAGER JUNIOR GREEN M.D. [facility] Comment on above: Performed By: #### C SF GLU, CSFCCDIFF, CSF TP #2, CSFCCDIFF #2, CSF TP, CSF GLU #2 #### [address] IR guided lumbar puncture LP on 03-26-2023 IR guided lumbar puncture LP [facility] [place] [address] [place] [address] Interventional Radiology Rpt Signed Patient: Delicia Serrano MR#: [id number] : 1980 Acct:[id number] Age/Sex: 42 / F ADM Date: 03/26/23 Loc: XD Room: Type: [facility] Attending Dr: Disha Dillard PA-C Copies to: [...] Felix Lawson M.D.03/26/2023 11:23 AM Dictation Location: [place] [address] Transcribed By: [facility] 03/26/23 112 Dictated By: Felix Lawson II, MD 03/26/23 1121 Signed By: 03/26/23 1123 Normal [facility] Raimundo 03-26-2023 L ------ Specimen: [id number] Received: 03/26/23 Status: JORGE Arreola Num: [id number] Spec Type: Cytology Subm Dr: JUNIOR STAFF Tissues: A CSF (CSF) Procedures: Cyto Prepstain, DIFF QROHIT MCDERMOTT Age/ Patient Sex Location Account Attending Physician Delicia Serrano 42/F XD [id number] Disha Dillard PA-C SPEC NUM: [id number] RECD: 03/26/23 STATUS: JORGE ARREOLA NUM: [id number] KIMBERLY: 03/26/[address]: JUNIOR STAFF ENTERED: 03/26/[address] [facility] [address]: SPEC TYPE: Cytology DEPT: [place] ENTERED BY: [id number] RECV BY: [id number] ORDERED: Cyto Prepstain, DIFF QWIK, PAPSTN ORDERED: [...] with Papanicolaou and Diff-Quik stains.(CC/nh) CPT Codes 60731 Specimen: [id number] Received: 03/26/23 Status: JORGE Arreola Num: [id number] Spec Type: Cytology [facility] Dr: JUNIOR STAFF Tissues: A CSF (CSF) Procedures: Cyto Prepstain, DIFF QWIK, PAPSTN Patient: Delicia Serrano [id number] (Continued) Signed (signature on file) Gigi-Ayad Schulz MD 03/27/23 1324 Normal [facility] MYELIN BASIC PROTEIN, CSFon 03-26-2023 MYELIN BASIC PROTEIN, CSF Normal [facility] Comment on above: Order Comment: Comme nt TUBE 3 Result Comment: See report. Scanned copy available in EMR. PERFORMED BY: [place] [address] PATHOLOGIST RESTAURANT AND BAR MANAGER JUNIOR GREEN M.D. Performed By: #### C SF GLU, CSFCCDIFF, CSF TP #2, CSFCCDIFF #2, CSF TP, CSF GLU #2 #### [facility] [address] [place] [address] [place] Total Protein, CSF #2on 03-16 Total Protein, CSF #2 63 mg/dL High 15-45 [facility] Comment on above: Order Comment: Comme nt TUBE 3 Result Comment: PERF ORMED BY: [place] [address] PATHOLOGIST RESTAURANT AND BAR MANAGER JUNIOR GREEN M.D. Performed By: #### C SF GLU, CSFCCDIFF, CSF TP #2, CSFCCDIFF #2, CSF TP, CSF GLU #2 #### [facility] [address] [place] [address] [place] Total Protein, Spinal Fluido n 03-26-2023 Total Protein, Spinal Fluid 71 mg/dL High 15-45 [facility] Comment on above: Order Comment: Comme nt TUBE 1 Result Comment: PERF ORMED BY: [address] [place] [address] PATHOLOGIST RESTAURANT AND BAR MANAGER JUNIOR GREEN M.D. Performed By: #### C SF GLU, CSFCCDIFF, CSF TP #2, CSFCCDIFF #2, CSF TP, CSF GLU #2 #### [facility] [address] [id number] [facility] Follow-Upon 03-24-2023 Follow-Up [id number] Delicia Serrano 1980 F Date Provider Department [...] Father's Sister Father's Brother Brother Level of Service:70083 [place] OFFICE/OUTPATIENT ESTABLISHED MOD MDM 30 MIN () Reason for Visit and Comments: Follow-up [071705] - C7-T1 INTERLAMINAR EPIDURAL STEROID INJECTION 60% [facility] [place] [address] Date: 03/24/23 Referral Source: No ref. 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 Normal [facility] 37on 03-23-2023 37 - continue current d ose of methotrexate, increase folic acid to twice a day - increase mobic to twice daily if needed for sever pain - do labs ( cbc and CMP ) sometime before your next visit Normal [facility] Follow-Upon 03-23-2023 Follow-Up [id number] Delicia Serrano 1980 F Date Provider Department Center 03/23/2023 Sabrina4-CHRISTIANNE DA SILVA [facility] RHEUM [facility] Family History Problem [...] Father's Sister Father's Brother Brother Level of Service:06460 [place] OFFICE/OUTPATIENT ESTABLISHED MOD MDM 30 MIN Reason for Visit and Comments: Follow-up [197368] Normal [facility] MR LUMBAR SPINE W AND WO CON [...] L5 nerve roots. Electronically signed: Krishna Magana. 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 20 tablet 0 xjmjjml-rzvvsmzqtphdo-dcpg eine (Excedrin Extra Strength) 250-250-65 mg tablet [...] Lancet 33 gauge misc OneTouch Ultra2 Meter [facility] See administration instructions. potassium chloride CR (Klor-Con) [...] bedtime. No c (more content not included)... [facility] 02-12-2023 ------ -- Attestation signed by Carlos [...] Arthritis Maternal Grandfather Dominick Cancer Maternal Grandfather [place] Diabetes Maternal Grandfather [place] Stroke Maternal Grandfather [place] Arthritis Maternal Grandmother Raydene Cancer Maternal [...] no active Hospital Problems. VAMSI C7-T1 Normal [facility] POCT GLUCOSE METER UNSOLICIT ED RESULTSon 02-12-2023 Glucose [Mass/Vol] 109 mg/dL High 70-105 [facility] Comment on above: Order Comment: Waive d Testing in the ED is performed under the ED CLIA certificate #[id number]. Result Comment: [email or web address] Performed By: #### L [id number] ####[facility] ([facility])[address] [place] [address] A1C with Estimated Average G [facility] 02-11-2023 Glucose [Mass/Vol] 128 mg/dL Normal [facility] Comment on above: Result Comment: PERF ORMED BY: [facility] [address] [address] PATHOLOGIST RESTAURANT AND BAR MANAGER JUNIOR GREEN M.D. Performed By: #### L IPID, [facility]C [facility] ####[facility] [id number] [place] [address] [facility] HbA1c (Bld) [Mass fraction] 6.1 % High 4.3-5.6 [facility] Comment on above: Result Comment: Incr eased risk for diabetes: 5.7 - 6.4 diabetes: >6.4 glycemic control for adults with diabetes: <7.0 Performed By: #### L IPID, A1C WTH eA ####[facility] [id number] [place] [address] [facility] Alanine aminotransferase [En zymatic activity/volume] in Serum or PlasmaOrdered By: Mariana Cortes on 02-11-2023 ALT [Catalytic activity/Vol] 16 U/L 7-52 [facility] Albumin [Mass/volume] in Ser um or PlasmaOrdered By: Mariana Cortes on 02-11-2023 Albumin [Mass/Vol] 3.6 g/dL 2.9-4.4 [facility] Albumin [Mass/volume] in Ser um or Plasma by Bromocresol green (BCG) dye binding methoOrdered By: erinn Cortes on 02-11-2023 Albumin BCG dye [Mass/Vol] 4.2 g/dL 3.5-5.7 [facility] Alkaline phosphatase [Enzyma tic activity/volume] in Serum or PlasmaOrdered By: erinn Cortes on 02-11-2023 ALP [Catalytic activity/Vol] 65 U/L 34-104 [facility] Aspartate aminotransferase [ Enzymatic activity/volume] in Serum or PlasmaOrdered By: erinn Cortes on 02-11-2023 AST [Catalytic activity/Vol] 15 U/L 13-39 [facility] Basophils Auto (Bld) [#/Vol] Ordered By: erinn Cortes on 02-11-2023 Basophils (Bld) [#/Vol] 0.1 10*3/uL 0.0-0.2 [facility] Basophils/100 WBC Auto (Bld) Ordered By: erinn Cortes on 02-11-2023 Basophils/100 WBC (Bld) 0.8 % . [facility] Bilirubin.total [Mass/volume ] in Serum or PlasmaOrdered By: Mariana Cortes on 02-11-2023 Bilirubin [Mass/Vol] 0.4 mg/dL 0.3-1.0 [facility] Calcium [Mass/volume] in Ser um or PlasmaOrdered By: Mariana Cortes on 02-11-2023 Calcium [Mass/Vol] 8.9 mg/dL 8.6-10.3 [facility] Carbon dioxide, total [Moles /volume] in Serum or PlasmaOrdered By: Mariana Nguyen on 02-11-2023 CO2 [Moles/Vol] 23.6 mmol/L 21.0-31.0 [facility] Chloride [Moles/volume] in S gopal or PlasmaOrdered By: erinn Cortes on 02-11-2023 Chloride [Moles/Vol] 109 mmol/L 98-107 [facility] Cholesterol [Mass/volume] in Serum or PlasmaOrdered By: Jenny Reis on 02-11-2023 Cholesterol [Mass/Vol] 177 mg/dL 140-200 [facility] Comment on above: Chol less than 200 m g/dl low riskChol 201-239 mg/dl borderline riskChol 240 mg/dl and greater high risk Cholesterol in LDL Calc [Mas s/Vol]Ordered By: Jenny Reis on 02-11-2023 Cholesterol in LDL [Mass/Vol] 103 mg/dL 0-100 [facility] Comment on above: LDL ATP III CLASSIFI CATIONLDL less than 100 mg/dL OptimalLDL 100-129 mg/dL Near or above optimalLDL 130-159 mg/dL Borderline highLDL 160-189 mg/dL HighLDL greater than 189 mg/dL Very high Cholesterol in VLDL Calc [Ma ss/Vol]Ordered By: Jenny Reis on 02-11-2023 Cholesterol in VLDL [Mass/Vol] 41 mg/dL [facility] Complete Blood Count Auto Di ffon 02-11-2023 Basophils (Bld) [#/Vol] 0.1 10*3/uL Normal 0.0-0.2 [facility] Comment on above: Result Comment: PERF ORMED BY: [facility] [address] [place] [address] PATHOLOGIST RESTAURANT AND BAR MANAGER JUNIOR GREEN M.D. Performed By: #### K APPA, SPE, NORMAN SERUM ####[facility] ,#### CBC ####[address] Basophils/100 WBC (Bld) 0.8 % Normal . [facility] Comment on above: Performed By: #### K APPA, SPE, NORMAN SERUM ####[facility] ,#### CBC ####[address] Eosinophils (Bld) [#/Vol] 0.2 10*3/uL Normal 0.0-0.45 [facility] Comment on above: Performed By: #### K APPA, SPE, NORMAN SERUM ####[facility] ,#### CBC ####[address] Eosinophils/100 WBC (Bld) 1.8 % Normal . [facility] Comment on above: Performed By: #### K APPA, SPE, NORMAN SERUM ####[facility] ,#### CBC ####[address] Erythrocyte distribution width (RBC) [Ratio] 14.2 % Normal 11.9-15.3 [facility] Comment on above: Performed By: #### K APPA, SPE, NORMAN SERUM ####[facility] ,#### CBC ####[address] Hematocrit (Bld) [Volume fraction] 37.5 % Normal 34.0-46.4 [facility] Comment on above: Performed By: #### K APPA, SPE, NORMAN SERUM ####[facility] ,#### CBC ####[address] Hemoglobin (Bld) [Mass/Vol] 12.6 g/dL Normal 11.8-15.4 [facility] Comment on above: Performed By: #### K APPA, SPE, NORMAN SERUM ####[facility] ,#### CBC ####[address] Lymphocytes (Bld) [#/Vol] 3.3 10*3/uL Normal 1.00-4.8 [facility] Comment on above: Performed By: #### K APPA, SPE, NORMAN SERUM ####[facility] ,#### CBC ####[address] Lymphocytes/100 WBC (Bld) 30.0 % Normal . [facility] Comment on above: Performed By: #### K APPA, SPE, NORMAN SERUM ####[facility] ,#### CBC ####[address] MCH (RBC) [Entitic mass] 29.0 pg Normal 24.7-34.3 [facility] Comment on above: Performed By: #### K APPA, SPE, NORMAN SERUM ####[facility] ,#### CBC ####[address] MCV (RBC) [Entitic vol] 86.3 fL Normal 80-100 [facility] Comment on above: Performed By: #### K APPA, SPE, NORMAN SERUM ####[facility] ,#### CBC ####[address] Mean Corpuscular HGB Conc 33.6 g/dL Normal 32.0-35.0 [facility] Comment on above: Performed By: #### K APPA, SPE, NORMAN SERUM ####[facility] ,#### CBC ####[address] Monocytes (Bld) [#/Vol] 0.4 10*3/uL Normal 0.0-0.8 [facility] Comment on above: Performed By: #### K APPA, SPE, NORMAN SERUM ####[facility] ,#### CBC ####[address] [address] [place] Monocytes/100 WBC (Bld) 4.0 % Normal . [facility] Comment on above: Performed By: #### K APPA, SPE, NORMAN SERUM ####[facility] ,#### CBC ####[place] [address] [place] Neutrophils (Bld) [#/Vol] 7.0 10*3/uL Normal 1.8-7.7 [facility] Comment on above: Performed By: #### K APPA, SPE, NORAMN SERUM ####[facility] ,#### CBC ####[address] Neutrophils/100 WBC (Bld) 63.4 % Normal . [facility] Comment on above: Performed By: #### K APPA, SPE, NORMAN SERUM ####[facility] ,#### CBC ####[address] NRBC% 0.1 /100{WBC} Normal 0-0.5 [facility] Comment on above: Performed By: #### K APPA, SPE, NORMAN SERUM ####[facility] ,#### CBC ####[place] [id number] [facility] Platelet mean volume (Bld) [Entitic vol] 6.4 fL Normal 6.3-10.7 [facility] Comment on above: Performed By: #### K APPA, SPE, NORMAN SERUM ####[facility] ,#### CBC ####[address] [place] [address] [place] Platelets (Bld) [#/Vol] 388 10*3/uL Normal 150-450 [facility] Comment on above: Performed By: #### K APPA, SPE, NORMAN SERUM ####[facility] ,#### CBC ####[address] RBC (Bld) [#/Vol] 4.35 10*6/uL Normal 3.60-5.00 [facility] Comment on above: Performed By: #### K APPA, SPE, NORMAN SERUM ####[facility] ,#### CBC ####[address] WBC (Bld) [#/Vol] 11.1 10*3/uL Normal 3.8-11.6 [facility] Comment on above: Performed By: #### K APPA, SPE, NORMAN SERUM ####[facility] ,#### CBC ####[address] Comprehensive Metabolic Pane raimundo 02-11-2023 Albumin [Mass/Vol] 4.2 g/dL Normal 3.5-5.7 [facility] Comment on above: Performed By: #### F ER, [id number], FE and TIBC, CMP ####[address] Albumin/Globulin [Mass ratio] 1.8 {ratio} Normal [facility] Comment on above: Performed By: #### F ER, [id number], FE and TIBC, CMP ####[address] ALP [Catalytic activity/Vol] 65 U/L Normal 34-104 [facility] Comment on above: Performed By: #### F ER, [id number], FE and TIBC, CMP ####[address] ALT [Catalytic activity/Vol] 16 U/L Normal 7-52 [facility] Comment on above: Performed By: #### F ER, [id number], FE and TIBC, CMP ####[address] Anion gap [Moles/Vol] 13.5 mmol/L Normal 6.0-15.0 [facility] Comment on above: Performed By: #### F ER, [id number], FE and TIBC, CMP ####[address] AST [Catalytic activity/Vol] 15 U/L Normal 13-39 [facility] Comment on above: Performed By: #### F ER, [id number], FE and TIBC, CMP ####[address] Bilirubin [Mass/Vol] 0.4 mg/dL Normal 0.3-1.0 [facility] Comment on above: Performed By: #### F ER, [id number], FE and TIBC, CMP ####[address] Calcium [Mass/Vol] 8.9 mg/dL Normal 8.6-10.3 [facility] Comment on above: Performed By: #### F ER, [id number], FE and TIBC, CMP ####[address] Chloride [Moles/Vol] 109 mmol/L High 98-107 [facility] Comment on above: Performed By: #### F ER, [id number], FE and TIBC, CMP ####[address] CO2 [Moles/Vol] 23.6 mmol/L Normal 21.0-31.0 [facility] Comment on above: Performed By: #### F ER, [id number], FE and TIBC, CMP ####[address] [address] [facility] Creatinine [Mass/Vol] 0.93 mg/dL Normal 0.60-1.20 [facility] Comment on above: Performed By: #### F ER, [id number], FE and TIBC, CMP ####[place] [id number] [facility] Creatinine Clr Calc Pharmacy 91.82 [facility] Comment on above: Performed By: #### F ER, [id number], FE and TIBC, CMP ####[place] [id number] [facility] GFR/1.73 sq M.predicted MDRD (S/P/Bld) [Vol rate/Area] mL/min/{1.73_m2} [facility] Comment on above: Performed By: #### F ER, [id number], FE and TIBC, CMP ####[place] [id number] [facility] Globulin (S) [Mass/Vol] 2.4 g/dL [facility] Comment on above: Performed By: #### F ER, [id number], FE and TIBC, CMP ####[address] Glucose [Mass/Vol] 85 mg/dL Normal 70-100 [facility] Comment on above: Result Comment: [place] Glucose Reference Range is dependent on time and content of last meal. Glucose of more than 200 mg/dL in a nonstressed, ambulatory subject supports the diagnosis of Diabetes Mellitus. ADA recommended reference range Performed By: #### F ER, [id number], FE and TIBC, CMP ####[place] [id number] [facility] Potassium [Moles/Vol] 4.1 mmol/L Normal 3.5-5.1 [facility] Comment on above: Performed By: #### F ER, [id number], FE and TIBC, CMP ####[place] [id number] [facility] Protein [Mass/Vol] 6.6 g/dL Normal 6.4-8.9 [facility] Comment on above: Performed By: #### F ER, [id number], FE and TIBC, CMP ####[place] [id number] [address] Sodium [Moles/Vol] 142 mmol/L Normal 136-145 [facility] Comment on above: Performed By: #### F ER, [id number], FE and TIBC, CMP ####[address] Urea nitrogen [Mass/Vol] 21 mg/dL Normal 7-25 [facility] Comment on above: Performed By: #### F ER, [id number], FE and TIBC, CMP ####[address] Creatinine [Mass/volume] in Serum or PlasmaOrdered By: Mariana Cortes on 02-11-2023 Creatinine [Mass/Vol] 0.93 mg/dL 0.60-1.20 [facility] Eosinophils Auto (Bld) [#/Vo l]Ordered By: erinn Cortes on 02-11-2023 Eosinophils (Bld) [#/Vol] 0.2 10*3/uL 0.0-0.45 [facility] Eosinophils/100 WBC Auto (Bl d)Ordered By: erinn Cortes on 02-11-2023 Eosinophils/100 WBC (Bld) 1.8 % . [facility] Erythrocyte distribution wid th Auto (RBC) [Ratio]Ordered By: erinn Cortes on 02-11-2023 Erythrocyte distribution width (RBC) [Ratio] 14.2 % 11.9-15.3 [facility] Ferritinon 02-11-2023 Ferritin [Mass/Vol] 72.5 ng/mL Normal 11.0-306.8 [facility] Comment on above: Performed By: #### F ER, [id number], FE and TIBC, CMP ####[place] [id number] [place] Ferritin [Mass/volume] in Se rum or PlasmaOrdered By: Mariana SteeleMarthalex on 02-11-2023 Ferritin [Mass/Vol] 72.5 ng/mL 11.0-306.8 [facility] Folate [Mass/volume] in Seru m or PlasmaOrdered By: Mariana SteeleMarthalex on 02-11-2023 Folate [Mass/Vol] 28.0 ng/mL >5.9 [facility] Comment on above: Folate reference ran ge: >5.9 ng/mlThe WHO technical consultation on folate and vitamin [id number] has determined that folate concentrations lessthan 4 ng/ml are considered deficient. Free K+L LT Chains, Qn, Son 02-11-2023 Free Emma Light Chains, S 15.3 mg/L Normal 3.3-19.4 [facility] Comment on above: Performed By: #### C SF GLU, CSFCCDIFF, CSF TP #2, CSFCCDIFF #2, CSF TP, CSF GLU #2 #### [address] Free Lambda Light Chains, S 11.3 mg/L Normal 5.7-26.3 [facility] Comment on above: Performed By: #### C SF GLU, CSFCCDIFF, CSF TP #2, CSFCCDIFF #2, CSF TP, CSF GLU #2 #### [address] Emma/Lambda Ratio, S 1.35 Normal 0.26-1.65 [facility] Comment on above: Result Comment: Perf ormed at: CB - [facility] [address] [id number] Pleater: Chato Rincon PhD, Phone: [phone] PERFORMED BY: [place] [address] PATHOLOGIST RESTAURANT AND BAR MANAGER JUNIOR GREEN M.D. Performed By: #### C SF GLU, CSFCCDIFF, CSF TP #2, CSFCCDIFF #2, CSF TP, CSF GLU #2 #### [address] Globulin Calc (S) [Mass/Vol] Ordered By: Mariana Cortes on 02-11-2023 Globulin (S) [Mass/Vol] 2.4 g/dL [facility] Glucose [Mass/volume] in Ser um or PlasmaOrdered [...] from glycated hemoglobin (Bld) [Mass/Vol] 128 mg/dL [facility] Hematocrit Auto (Bld) [Volum e fraction]Ordered By: Mariana Cortes on 02-11-2023 Hematocrit (Bld) [Volume fraction] 37.5 % 34.0-46.4 [facility] Hemoglobin A1c percentageOrd ered By: Jenny Reis on 02-11-2023 HbA1c (Bld) [Mass fraction] 6.1 % 4.3-5.6 [facility] Comment on above: Increased risk for d iabetes: 5.7 - 6.4diabetes: >6.4glycemic control for adults with diabetes: <7.0 Hemoglobin [Mass/volume] in BloodOrdered By: Mariana Cortes on 02-11-2023 Hemoglobin (Bld) [Mass/Vol] 12.6 g/dL 11.8-15.4 [facility] IgA [Mass/volume] in Serum o r PlasmaOrdered By: Mariana Cortes on 02-11-2023 IgA [Mass/Vol] 94 mg/dL 87-352 [facility] IgG [Mass/volume] in Serum o r PlasmaOrdered By: Mariana Cortes on 02-11-2023 IgG [Mass/Vol] 726 mg/dL [phone] [facility] IgM [Mass/volume] in Serum o r PlasmaOrdered By: Mariana Cortes on 02-11-2023 IgM [Mass/Vol] 117 mg/dL 26-217 [facility] Comment on above: Performed at: [facility] [place], [place] [id number] Director: Chato Rincon PhD, Phone: [phone] Immunofixation,Serumon 02-11 Immunofixation, Serum Normal . [facility] Comment on above: Result Comment: No m onoclonality detected. Performed By: #### K APPA, SPE, NORMAN SERUM ####[facility] ,#### CBC ####[address] [address] [facility] Immunoglobulin A, Serum 94 mg/dL Normal 87-352 [facility] Comment on above: Performed By: #### K APPA, SPE, NORMAN SERUM ####[facility] ,#### CBC ####[address] [address] [facility] Immunoglobulin G 726 mg/dL Normal 586-1602 [facility] Comment on above: Performed By: #### K APPA, SPE, NORMAN SERUM ####[facility] ,#### CBC ####[address] [address] [place] Immunoglobulin M, Serum 117 mg/dL Normal 26-217 [facility] Comment on above: Result Comment: Perf ormed at: - [facility] [address] [id number] Pleater: Chato Rincon PhD, Phone: [phone] Performed By: #### K APPA, SPE, NORMAN SERUM ####[facility] ,#### CBC ####[place] [id number] [facility] Immunoglobulin light chains. kappa.free [Mass/volume] in SerumOrdered By: Mariana Cortes on 11-29-2023 Immunoglobulin light chains.kappa.free (S) [Mass/Vol] 15.3 mg/L 3.3-19.4 [facility] Immunoglobulin light chains. kappa.free/Immunoglobulin light chains.lambda.free [MassOrdered By: Mariana Cortes on 02-11-2023 Immunoglobulin light chains.kappa.free/Immu noglobulin light chains.lambda.free (S) [Mass ratio] 1.35 0.26-1.65 [facility] Comment on above: Performed at: [address] [id number] Director: Chato Rincon PhD, Phone: [phone] Immunoglobulin light chains. lambda.free [Mass/volume] in Serum or PlasmaOrdered By: Mariana Cortes on 02-11-2023 Immunoglobulin light chains.lambda.free [Mass/Vol] 11.3 mg/L 5.7-26.3 [facility] Iron [Mass/volume] in Serum or PlasmaOrdered By: Mariana Cortes on 02-11-2023 Iron [Mass/Vol] 69 ug/dL 50-212 [facility] Iron and TIBC Profileon 01-15 % Iron Saturation 20.6 % Normal 20-50 [facility] Comment on above: Performed By: #### F ER, [id number], FE and TIBC, CMP ####[facility] [address] [place] [address] [facility] Iron [Mass/Vol] 69 ug/dL Normal 50-212 [facility] Comment on above: Performed By: #### F ER, [id number], FE and TIBC, CMP ####[facility] [id number] [place] [address] [facility] Total Iron Binding Capacity 335 ug/dL Normal 255-450 [facility] Comment on above: Performed By: #### F ER, [id number], FE and TIBC, CMP ####[facility] [address] [place] [address] [facility] Transferrin [Mass/Vol] 239 mg/dL Normal 203-362 [facility] Comment on above: Performed By: #### F ER, [id number], FE and TIBC, CMP ####[facility] [id number] [facility] Iron binding capacity [Mass/ volume] in Serum or PlasmaOrdered By: Mariana Cortes on 02-11-2023 Iron binding capacity [Mass/Vol] 335 ug/dL 255-450 [facility] Iron saturation [Mass Fracti on] in Serum or PlasmaOrdered By: erinn Cortes on 02-11-2023 Iron saturation [Mass fraction] 20.6 % 20-50 [facility] Leukocytes [#/volume] correc [place] for nucleated erythrocytes in Blood by Automated counOrdered By: erinn Cortes on 02-11-2023 WBC corrected for nucl RBC Auto (Bld) [#/Vol] 11.1 10*3/uL 3.8-11.6 [facility] Lipid Panelon 02-11-2023 Cholesterol [Mass/Vol] 177 mg/dL Normal 140-200 [facility] Comment on above: Result Comment: Chol less than 200 mg/dl low risk Chol 201-239 mg/dl borderline risk Chol 240 mg/dl and greater high risk Performed By: #### L IPID, [address] eA ####[place] [address] [address] Cholesterol in HDL [Mass/Vol] 33 mg/dL Normal 23-92 [facility] Comment on above: Result Comment: HDL CHOL ATP-III CLASSIFICATION Cardiovascular Risk HDL > or equal to 60 mg/dL LOW HDL < 40 mg/dL HIGH Performed By: #### L IPID, [address] eA ####[place] [address] [place] [address] [facility] Cholesterol.total/Chol esterol in HDL [Mass ratio] 5.4 {ratio} Normal <5.0 [facility] Comment on above: Result Comment: PERF ORMED BY: [facility] [address] [place] [id number] PATHOLOGIST RESTAURANT AND BAR MANAGER JUNIOR GREEN M.D. Performed By: #### L IPID, [address] eA ####[facility] LDL Cholesterol,Calculated 103 mg/dL High 0-100 [facility] Comment on above: Result Comment: LDL ATP III CLASSIFICATION LDL less than 100 mg/dL Optimal LDL 100-129 mg/dL Near or above optimal LDL 130-159 mg/dL Borderline high LDL 160-189 mg/dL High LDL greater than 189 mg/dL Very high Performed By: #### L IPID, A1C WT eA ####[address] Triglyceride w/Reflex 207 mg/dL High 0-149 [facility] Comment on above: Result Comment: TRIG ATP III CLASSIFICATION TRIG less than 150 mg/dL Normal TRIG 150-199 mg/dL Borderline high TRIG 200-500 mg/dL High TRIG greater than 500 mg/dL Very high Standard traceable to the Center for Disease Conrtrol and Prevention (CDC) test method. Performed By: #### L IPID, A1C [facility] eA ####[address] VLDL CHOLESTEROL 41 mg/dL Normal [facility] Comment on above: Performed By: #### L IPID, A1C [facility] eA ####[address] Lymphocytes Auto (Bld) [#/Vo l]Ordered By: Mariana Cortes on 02-11-2023 Lymphocytes (Bld) [#/Vol] 3.3 10*3/uL 1.00-4.8 [facility] Lymphocytes/100 WBC Auto (Bl d)Ordered By: Mariana Cortes on 02-11-2023 Lymphocytes/100 WBC (Bld) 30.0 % . [facility] MCH Auto (RBC) [Entitic mass ]Ordered By: Mariana Cortes on 02-11-2023 MCH (RBC) [Entitic mass] 29.0 pg 24.7-34.3 [facility] MCHC Auto (RBC) [Mass/Vol]Or dered By: Mariana Cortes on 02-11-2023 MCHC (RBC) [Mass/Vol] 33.6 g/dL 32.0-35.0 [facility] MCV Auto (RBC) [Entitic vol] Ordered By: Mariana Cortes on 02-11-2023 MCV (RBC) [Entitic vol] 86.3 fL 80-100 [facility] Monocytes Auto (Bld) [#/Vol] Ordered By: erinn Alatorre-Wendy on 02-11-2023 Monocytes (Bld) [#/Vol] 0.4 10*3/uL 0.0-0.8 [facility] Monocytes/100 WBC Auto (Bld) Ordered By: erinn Cortes on 02-11-2023 Monocytes/100 WBC (Bld) 4.0 % . [facility] Neutrophils Auto (Bld) [#/Vo l]Ordered By: erinn Cortes on 02-11-2023 Neutrophils (Bld) [#/Vol] 7.0 10*3/uL 1.8-7.7 [facility] Neutrophils/100 WBC Auto (Bl d)Ordered By: erinn Cortes on 02-11-2023 Neutrophils/100 WBC (Bld) 63.4 % . [facility] No Panel InformationOrdered By: erinn Cortes on 02-11-2023 Protein Electrophoresis M-Antwan Not observed g/dL Not Observed [facility] Protein Electrophoresis Note See comment . [facility] Comment on above: Protein electrophore sis scan will follow via computer,mail, or cad designer delivery. Serum Immunofixation See comment . [facility] Comment on above: No monoclonality det ected. Estimated GFR (CKD-EPI) > 60.0 mL/Min [facility] Pharmacy Creatinine Clearance (Chem 91.82 [facility] Nucleated erythrocytes [Pres ence] in Blood by Automated countOrdered By: Mariana Cortes on 02-11-2023 Nucleated RBC Auto Ql (Bld) 0.1 /100{WBC} 0-0.5 [facility] Platelet mean volume Auto (B ld) [Entitic vol]Ordered By: erinn Cortes on 02-11-2023 Platelet mean volume (Bld) [Entitic vol] 6.4 fL 6.3-10.7 [facility] Platelets Auto (Bld) [#/Vol] Ordered By: Luisd Sophia on 02-11-2023 Platelets (Bld) [#/Vol] 388 10*3/uL 150-450 [facility] Potassium [Moles/volume] in Serum or PlasmaOrdered By: Mariana Cortes on 02-11-2023 Potassium [Moles/Vol] 4.1 mmol/L 3.5-5.1 [facility] Protein Electrophoresis, Ser umon 02-11-2023 Albumin [Mass/Vol] 3.6 g/dL Normal 2.9-4.4 [facility] Comment on above: Performed By: #### K APPA, SPE, NORMAN SERUM ####[facility] ,#### CBC ####[address] Albumin/Globulin [Mass ratio] 1.2 {ratio} Normal 0.7-1.7 [facility] Comment on above: Performed By: #### K APPA, SPE, NORMAN SERUM ####[facility] ,#### CBC ####[address] Ytfsz-3-Vlzynbfi 0.3 g/dL Normal 0.0-0.4 [facility] Comment on above: Performed By: #### K APPA, SPE, NORMAN SERUM ####[facility] ,#### CBC ####[place] [address] [place] Dsjrm-1-Nbddcvvy 0.9 g/dL Normal 0.4-1.0 [facility] Comment on above: Performed By: #### K APPA, SPE, NORMAN SERUM ####[facility] ,#### CBC ####[place] [id number] [place] Beta Globulin 1.1 g/dL Normal 0.7-1.3 [facility] Comment on above: Performed By: #### K APPA, SPE, NORMAN SERUM ####[facility] ,#### CBC ####[place] [id number] [facility] Gamma Globulin 0.8 g/dL Normal 0.4-1.8 [facility] Comment on above: Performed By: #### K APPA, SPE, NORMAN SERUM ####[facility] ,#### CBC ####[place] [id number] [facility] Globulin (S) [Mass/Vol] 3.0 g/dL Normal 2.2-3.9 [facility] Comment on above: Performed By: #### K APPA, SPE, NORMAN SERUM ####[facility] ,#### CBC ####[address] M-Antwan Not Observed Normal Not Observed [facility] Comment on above: Performed By: #### K APPA, SPE, NORMAN SERUM ####[facility] ,#### CBC ####[place] [id number] [facility] Protein [Mass/Vol] 6.6 g/dL Normal 6.0-8.5 [facility] Comment on above: Performed By: #### K APPA, SPE, NORMAN SERUM ####[facility] ,#### CBC ####[place] [id number] [facility] SPE-Note Normal . [facility] Comment on above: Result Comment: Prot ein electrophoresis scan will follow via computer, mail, or cad designer delivery. Performed By: #### K APPA, SPE, NORMAN SERUM ####[facility] ,#### CBC ####[place] [id number] [facility] Protein [Mass/volume] in Ser um or PlasmaOrdered By: Mariana Cortes on 02-11-2023 Protein [Mass/Vol] 6.6 g/dL 6.0-8.5 [facility] Protein [Mass/Vol] 6.6 g/dL 6.4-8.9 [facility] RBC Auto (Bld) [#/Vol]Ordere d By: Mariana Cortes on 02-11-2023 RBC (Bld) [#/Vol] 4.35 10*6/uL 3.60-5.00 [facility] Serum globulin measurement ( mass/volume)Ordered By: Mariana Cortes on 02-11-2023 Globulin (S) [Mass/Vol] 3.0 g/dL 2.2-3.9 [facility] Serum or plasma albumin/glob ulin mass ratioOrdered By: Mariana Cortes on 02-11-2023 Albumin/Globulin [Mass ratio] 1.2 {ratio} 0.7-1.7 [facility] Albumin/Globulin [Mass ratio] 1.8 {ratio} [facility] Serum or plasma alpha 1 glob ulin measurement by electrophoresis (mass/volume)Ordered By: Mariana Cortes on 02-11-2023 Alpha 1 globulin Elph [Mass/Vol] 0.3 g/dL 0.0-0.4 [facility] Serum or plasma alpha 2 glob ulin measurement by electrophoresis (mass/volume)Ordered By: Mariana Cortes on 02-11-2023 Alpha 2 globulin Elph [Mass/Vol] 0.9 g/dL 0.4-1.0 [facility] Serum or plasma anion gap de terminationOrdered By: Mariana Cortes on 02-11-2023 Anion gap [Moles/Vol] 13.5 mmol/L 6.0-15.0 [facility] Serum or plasma beta globuli n measurement by electrophoresis (mass/volume)Ordered By: Mariana Cortes on 02-11-2023 Beta globulin Elph [Mass/Vol] 1.1 g/dL 0.7-1.3 [facility] Serum or plasma gamma globul in measurement by electrophoresis (mass/volume)Ordered By: Mariana Cortes on 02-11-2023 Gamma globulin Elph [Mass/Vol] 0.8 g/dL 0.4-1.8 [facility] Serum or plasma high density lipoprotein (HDL) cholesterol measurementOrdered By: Jenny Reis on 02-11-2023 Cholesterol in HDL [Mass/Vol] 33 mg/dL 23-92 [facility] Comment on above: HDL CHOL ATP-III CLA SSIFICATION Cardiovascular RiskHDL > or equal to 60 mg/dL LOWHDL < 40 mg/dL HIGH Serum or plasma total choles terol/high density lipoprotein (HDL) cholesterol mass ratOrdered By: Jenny Reis on 02-11-2023 Cholesterol.total/Chol esterol in HDL [Mass ratio] 5.4 {ratio} <5.0 [facility] Sodium [Moles/volume] in Ser um or PlasmaOrdered By: erinn Cortes on 02-11-2023 Sodium [Moles/Vol] 142 mmol/L 136-145 [facility] Transferrin [Mass/volume] in Serum or PlasmaOrdered By: Mariana Cortes on 02-11-2023 Transferrin [Mass/Vol] 239 mg/dL 203-362 [facility] Triglyceride [Mass/volume] i n Serum or PlasmaOrdered By: Jenny Reis on 02-11-2023 Triglyceride [Mass/Vol] 207 mg/dL 0-149 [facility] Comment on above: TRIG ATP III CLASSIF ICATIONTRIG less than 150 mg/dL NormalTRIG 150-199 mg/dL Borderline highTRIG 200-500 mg/dL High TRIG greater than 500 mg/dL Very highStandard traceable to the Center for Disease Conrtrol and Prevention (CDC) test method. Urea nitrogen [Mass/volume] in Serum or PlasmaOrdered By: Mariana Cortes on 02-11-2023 Urea nitrogen [Mass/Vol] 21 mg/dL 7-25 [facility] Vit. B12/Folate Profileon Cobalamin (Vitamin B12) [Mass/Vol] 343 pg/mL Normal 180-914 [facility] Comment on above: Performed By: #### F ER, [id number], FE and TIBC, CMP ####[facility] [place] [address] [facility] Folate 28.0 ng/mL Normal >5.9 [facility] Comment on above: Result Comment: Francesca te reference range: >5.9 ng/ml The WHO technical consultation on folate and vitamin b12 deficiencies has determined that folate concentrations less than 4 ng/ml are considered deficient. PERFORMED BY: [facility] [address] [place] [address] PATHOLOGIST RESTAURANT AND BAR MANAGER JUNIOR GREEN M.D. Performed By: #### F ER, [id number], FE and TIBC, CMP ####[facility] [id number] [place] [address] [facility] Vitamin B12 ser/plasOrdered By: Mariana Cortes on 02-11-2023 Cobalamin (Vitamin B12) [Mass/Vol] 343 pg/mL 180-914 [facility] WBC Auto (Bld) [#/Vol]Ordere d By: Mariana Cortes on 02-11-2023 WBC (Bld) [#/Vol] 11.1 10*3/uL 3.8-11.6 [facility] 36on 02-09-2023 [address] Riley ballard Mailbox. Once signed mail to patient. Normal [facility] Letter (Out)on 02-09-2023 Letter (Out) [id number] Delicia Serrano 1980 F Date Provider Department Center 02/09/2023 CHRISTIANNE LIPSCOMB [facility] RHEUM [facility] Family History Problem Relation Age of Onset [...] Daughter Father's Sister Father's Brother Brother Normal [facility] Orders Onlyon 02-03-2023 Orders Only [id number] Delicia Serrano 1980 Provider Department Center 02/03/2023 CHRISTIANNE LIPSCOMB [facility] R[facility]UM [facility] Family History Problem Relation Age of Onset [...] Daughter Father's Sister Father's Brother Brother Normal [facility] Follow-Upon 02-02-2023 Follow-Up [id number] Delicia Serrano 1980 Provider Department Center 02/02/2023 CHRISTIANNE LIPSCOMB [facility] RHEUM [facility] Family History Problem [...] Father's Sister Father's Brother Brother Level of Service:33714 [place] OFFICE/OUTPATIENT ESTABLISHED MOD MDM 30-39 MIN Reason for Visit and Comments: Follow-up [483795] - recheck after steroid treatment Normal [facility] URINALYSISon 02-02-2023 BILIRUBIN, TOTAL PRESENCE IN URINE Negative Normal Negative [facility] Comment on above: Performed By: #### L [id number] #### [facility] [address] [place] [address] Clarity (U) Slightly Cloudy Abnormal Clear [facility] Comment on above: Performed By: #### L [id number] #### [facility] [address] [place] [address] Color (U) Yellow Normal Yellow [facility] Comment on above: Performed By: #### L [id number] #### [facility] ([facility]) [address] [place] [address] Glucose (U) [Mass/Vol] Negative Normal [facility] Comment on above: Performed By: #### L [id number] #### [facility] ([facility]) [address] [place] [address] HEMOGLOBIN PRESENCE IN URINE Negative Normal Negative [facility] Comment on above: Performed By: #### L [id number] #### [facility] ([facility]) [address] [place] [address] Ketones Ql (U) Trace Abnormal Negative [facility] Comment on above: Performed By: #### L [id number] #### [facility] ([facility] [address] [place] [address] LEUKOCYTE ESTERASE PRESENCE IN URINE BY TEST STRIP Negative Normal Negative [facility] Comment on above: Performed By: #### L [id number] #### [facility] ([facility] [address] [place] [address] NITRITE PRESENCE IN URINE Negative Normal Negative [facility] Comment on above: Performed By: #### L [id number] #### [facility] ([facility]) [address] [place] [address] pH (U) 6.0 [pH] Normal 5.0-8.0 [facility] Comment on above: Performed By: #### L [id number] #### [facility] ([facility] [address] [place] [address] Protein (U) [Mass/Vol] 30 mg/dL Abnormal Negative [facility] Comment on above: Performed By: #### L [id number] #### [facility] ([facility]) [address] [place] [address] Specific gravity (U) [Rel density] 1.027 High 1.015-1.020 [facility] Comment on above: Performed By: #### L [id number] #### [facility] ([facility]) [address] [place] [address] URINALYSIS MICROSCOPICon CALCIUM OXALATE CRYSTALS (#/HPF) IN URINE Many Abnormal None Seen [facility] Comment on above: Performed By: #### L AB348 #### [facility] ([facility]) [address] [place] [address] CASTS IN URINE Present Abnormal None Seen [facility] Comment on above: Performed By: #### L [id number] #### [facility] ([facility]) [address] [place] [address] CRYSTALS IN URINE Present Abnormal None Seen [facility] Comment on above: Performed By: #### L [id number] #### [facility] ([facility]) [address] [place] [address] HYALINE CASTS /LPF IN URINE SEDIMENT BY MICROSCOPY 2 /LPF High <1 [facility] Comment on above: Performed By: #### L [id number] #### [facility] ([facility]) [address] [place] [address] MUCUS (#/HPF) IN URINE SEDIMENT Many Abnormal None Seen, Occasional, Few [facility] Comment on above: Performed By: #### L [id number] #### [facility] ([facility] [address] [place] [address] RBC (#/HPF) IN URINE SEDIMENT 3-5 Abnormal None Seen [facility] Comment on above: Performed By: #### L [id number] #### [facility] ([facility]) [address] [place] [address] SQUAMOUS EPITHELIAL CELLS (#/HPF) IN URINE SEDIMENT Many Abnormal None Seen, Occasional [facility] Comment on above: Performed By: #### L [id number] #### [facility] ([facility]) [address] [place] [address] WBC (LEUKOCYTE) (#/HPF) IN URINE SEDIMENT 0-2 Abnormal None Seen [facility] Comment on above: Performed By: #### L [id number] #### [facility] ([facility]) [address] [facility] [place] [address] YEAST, BUDDING (#/HPF) IN URINE Occasional Abnormal None Seen [facility] Comment on above: Performed By: #### L [id number] #### [facility] ([facility]) [address] [place] [address] Office Visiton 01-08-2023 Follow-up visit [id number] Delicia Serrano 1980 F Date Provider Department [...] Father's Sister Father's Brother Brother Level of Service:25640 [place] OFFICE/OUTPATIENT NEW MODERATE MDM 45-59 MINUTES (GC) Reason for Visit and Comments: New Patient [632] - Neck and Low Back Pain Normal [facility] Follow-Upon 12-22-2022 Follow-Up [id number] Delicia Serrano 1980 F Date Provider Department Center 12/22/2022 CHRISTIANNE LIPSCOMB [facility] R[facility]UM [facility] Family History Problem [...] Father's Sister Father's Brother Brother Level of Service:01807 [place] OFFICE/OUTPATIENT ESTABLISHED MOD MDM 30-39 MIN Reason for Visit and Comments: Follow-up [804661] [facility] 36on 12-17-2022 36 Spoke w/ kaye from doc office and relayed Dr. Smart's message [facility] 36on 12-15-2022 36 Called office and sp kristian w/ office nurse she sates most recent MRI was done to [facility] previous MRI. 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 They are faxing the report to our office for you to view. Please advise [facility] 36on 12-11-2022 36 Monica SINGH) from Dr. Quintero's office called to state based on pt MRI results they are potentially going to do a lumbar puncture. She called to ask if there was any testing you would like to add to the potential CSF studies. Please advise [facility] MR head/brain wo/w [facility] MR head/brain wo/w con [facility] Main [address] [address] MRI Report Signed Patient: Delicia Serrano MR#: [id number] : 1980 Acct:[id number] Age/Sex: 42 / F ADM Date: 11/27/22 Loc: MR Room: Type: [facility] Attending Dr: Disha Dillard PA-C Copies to: [...] Felix Lawson M.D.11/27/2022 8:39 PM Dictation Location: [place] [address] Transcribed By: [facility] 11/27/222038 Dictated By: Felix Lawson II, MD 11/27/222030 Signed By: 11/27/222038 [facility] XR pre/post mri xrayon 11-27 XR pre/post mri xray [facility] [facility] [address] MRI Report Signed Patient: Delicia Serrano MR#: [id number] : 1980 Acct:[id number] Age/Sex: 42 / F ADM Date: 11/27/22 Loc: MR Room: Type: [facility] Attending Dr: Disha Dillard PA-C Copies to: Disha Dillard PA-C Ordering Provider: Disha Dillard PA-C Date of Service: 11/27/22 MR/MR cervical spine wo/w con: R42, R20.2, M79.10 ([id number]) XR/XR pre/post mri xray: R42, R20.2, M79.10 [...] is uncovertebral joint spurring bilaterally contributing to [id number] bilateral neural foraminal narrowing without significant spinal [...] is uncovertebral joint spurring bilaterally contributing to [id number] bilateral neural foraminal narrowing without significant spinal canal stenosis. This is unchanged. No cord compression or cord signal abnormality. No abnormal postcontrast enhancement. Incidental note is made of flattening of the pituitary within the sella. Impression dictated by: Felix Lawson M.D.11/27/2022 8:45 PM Dictation Location: [place] [address] Transcribed By: [facility] 11/27/222044 Dictated By: Felix Lawson II, MD 11/27/222038 Signed By: 11/27/222044 [facility] ANAon 11-18-2022 DEEPA TITER <1:40 Normal <=1:40 [facility] Comment on above: Result Comment: Test performed using ELDA IFA DEEPA Hep-2 Test, a pre-standardized assay designed for the qualitative and semi-quantitative detection of antinuclear antibodies. Performed By: #### L [id number] #### [facility] ([facility]) [address] [place] [address] C-REACTIVE PROTEINon 023 C REACTIVE PROTEIN (MG/L) IN SER/PLAS 10.2 mg/L High 0.0-7.0 [facility] Comment on above: Performed By: #### L [id number] #### [facility] ([facility]) [address] [place] [address] CKon 11-18-2022 CREATINE KINASE (U/L) IN SER/PLAS 212.0 U/L Normal 30.0-223.0 [facility] Comment on above: Performed By: #### L AB62 ####[facility] ([facility])[address] [place] [address] CYCLIC CITRUL PEPTIDE ANTIBO DY, IGG AND IGAon 11-18-2022 CYCLIC CITRULLINATED PEPTIDE AB, IGG/A 2 Units Normal 0-19 [facility] Comment on above: Result Comment: INTE RPRETIVE [...] be monitored and testing repeated. Performed By: [employer] [address] [place] [address] Assembler [employer] Spider: Long Rey MD, PhD CLIA Number: [id number] Performed By: #### L AB147 #### [facility] ([facility]) [address] [place] [address] Office Visiton 11-18-2022 Follow-up visit [id number] Delicia Serrano 1980 Date Provider Department Center 11/18/2022 CHRISTIANNE LIPSCOMB [facility] Family History Problem Relation Age of Onset Hypertension Mother Diabetes Mother Hyperlipidemia Mother Hypertension Father Diabetes Father Hyperlipidemia Father Family Status - Relation Status Age at Mother Father Level of Service:[address]133 [place] OFFICE/OUTPATIENT NEW MODERATE MDM 45-59 MINUTES (GC) Reason for Visit and Comments: New Patient [632] - Joint pain.Muscle pain Normal [facility] Orders Onlyon 11-18-2022 Orders Only [id number] Delicia Serrano 1980 F Date Provider Department Center 11/18/2022 355CHRISTIANNE CORRALES [facility] Family History Problem Relation Age of Onset Hypertension Mother Diabetes Mother Hyperlipidemia Mother Hypertension Father Diabetes Father Hyperlipidemia Father Family Status - Relation Status Age at Mother Father Normal [facility] RHEUMATOID FACTORon 11-19-19 23 Rheumatoid factor Qn [IU]/mL Normal 0-20 [facility] Comment on above: Performed By: #### L [id number] #### [facility] ([facility]) [address] [place] [address] SEDIMENTATION RATEon 023 SEDIMENTATION RATE, ERYTHROCYTE 19 mm/hr Normal <=20 [facility] Comment on above: Performed By: #### L [id number] ####[facility] ([facility])[address] [place] [address] CT abdomen pelvis w conon CT abdomen pelvis w con [facility] [place] [address] [place] [address] CT Scan Report Signed Patient: Delicia Serrano MR#: [id number] : 1980 Acct:[id number] Age/Sex: 42 / F ADM Date: 11/13/22 Loc: Room: Type: [facility] Attending Dr: Nicki Duran APRN Copies to: Nicki Duran APRN Ordering Provider: Nicki Duran APRN Date of Service: 11/13/22 CT/CT chest w con: chest heaviness abdominal pain ([id number]) CT/CT abdomen pelvis w con: chest heaviness [...] Velazco Jr., D.O.11/13/2022 11:44 AM Dictation Location: [place] [address] Transcribed By: [facility] 11/13/22 1144 Dictated By: Moose Velazco Jr, DO 11/13/22 1136 Signed By: 11/13/22 1144 Normal [facility] Alanine aminotransferase [En zymatic activity/volume] in Serum or PlasmaOrdered By: Nicki Duran on 11-04-2022 ALT [Catalytic activity/Vol] 20 U/L 7-52 [facility] Albumin [Mass/volume] in Ser um or PlasmaOrdered By: Nicki Duran on 11-04-2022 Albumin [Mass/Vol] 3.6 g/dL 2.9-4.4 [facility] Albumin [Mass/volume] in Ser um or Plasma by Bromocresol green (BCG) dye binding methoOrdered By: Nicki Duran on 11-04-2022 Albumin BCG dye [Mass/Vol] 4.3 g/dL 3.5-5.7 [facility] Alkaline phosphatase [Enzyma tic activity/volume] in Serum or PlasmaOrdered By: Nicki Duran on 11-04-2022 ALP [Catalytic activity/Vol] 94 U/L 34-104 [facility] Aspartate aminotransferase [ Enzymatic activity/volume] in Serum or PlasmaOrdered By: Nicki Duran on 11-04-2022 AST [Catalytic activity/Vol] 15 U/L 13-39 [facility] Basophils Auto (Bld) [#/Vol] Ordered By: Nicki Roger on 11-04-2022 Basophils (Bld) [#/Vol] 0.1 10*3/uL 0.0-0.2 [facility] Basophils/100 WBC Auto (Bld) Ordered By: Nicki Roger on 11-04-2022 Basophils/100 WBC (Bld) 0.7 % . [facility] Bilirubin.total [Mass/volume ] in Serum or PlasmaOrdered By: Nicki Roger on 11-04-2022 Bilirubin [Mass/Vol] 0.3 mg/dL 0.3-1.0 [facility] Calcium [Mass/volume] in Ser um or PlasmaOrdered By: Nicki Roger on 11-04-2022 Calcium [Mass/Vol] 8.9 mg/dL 8.6-10.3 [facility] Carbon dioxide, total [Moles /volume] in Serum or PlasmaOrdered By: Nicki Roger on 11-04-2022 CO2 [Moles/Vol] 23.8 mmol/L 21.0-31.0 [facility] Chloride [Moles/volume] in S gopal or PlasmaOrdered By: Nicki Roger on 11-04-2022 Chloride [Moles/Vol] 110 mmol/L 98-107 [facility] Complete Blood Count Auto Di ffon 11-04-2022 Basophils (Bld) [#/Vol] 0.1 10*3/uL Normal 0.0-0.2 [facility] Comment on above: Result Comment: PERF ORMED BY: [place] [address] PATHOLOGIST RESTAURANT AND BAR MANAGER JUNIOR GREEN M.D. Performed By: #### C SF GLU, CSFCCDIFF, CSF TP #2, CSFCCDIFF #2, CSF TP, CSF GLU #2 #### [facility] [address] Basophils/100 WBC (Bld) 0.7 % Normal . [facility] Comment on above: Performed By: #### C SF GLU, CSFCCDIFF, CSF TP #2, CSFCCDIFF #2, CSF TP, CSF GLU #2 #### [address] Eosinophils (Bld) [#/Vol] 0.5 10*3/uL High 0.0-0.45 [facility] Comment on above: Performed By: #### C SF GLU, CSFCCDIFF, CSF TP #2, CSFCCDIFF #2, CSF TP, CSF GLU #2 #### [address] Eosinophils/100 WBC (Bld) 3.7 % Normal . [facility] Comment on above: Performed By: #### C SF GLU, CSFCCDIFF, CSF TP #2, CSFCCDIFF #2, CSF TP, CSF GLU #2 #### [address] Erythrocyte distribution width (RBC) [Ratio] 15.3 % Normal 11.9-15.3 [facility] Comment on above: Performed By: #### C SF GLU, CSFCCDIFF, CSF TP #2, CSFCCDIFF #2, CSF TP, CSF GLU #2 #### [address] Hematocrit (Bld) [Volume fraction] 40.8 % Normal 34.0-46.4 [facility] Comment on above: Performed By: #### C SF GLU, CSFCCDIFF, CSF TP #2, CSFCCDIFF #2, CSF TP, CSF GLU #2 #### [address] Hemoglobin (Bld) [Mass/Vol] 13.5 g/dL Normal 11.8-15.4 [facility] Comment on above: Performed By: #### C SF GLU, CSFCCDIFF, CSF TP #2, CSFCCDIFF #2, CSF TP, CSF GLU #2 #### [address] Lymphocytes (Bld) [#/Vol] 4.0 10*3/uL Normal 1.00-4.8 [facility] Comment on above: Performed By: #### C SF GLU, CSFCCDIFF, CSF TP #2, CSFCCDIFF #2, CSF TP, CSF GLU #2 #### [address] Lymphocytes/100 WBC (Bld) 29.2 % Normal . [facility] Comment on above: Performed By: #### C SF GLU, CSFCCDIFF, CSF TP #2, CSFCCDIFF #2, CSF TP, CSF GLU #2 #### [address] MCH (RBC) [Entitic mass] 28.4 pg Normal 24.7-34.3 [facility] Comment on above: Performed By: #### C SF GLU, CSFCCDIFF, CSF TP #2, CSFCCDIFF #2, CSF TP, CSF GLU #2 #### [address] MCV (RBC) [Entitic vol] 85.7 fL Normal 80-100 [facility] Comment on above: Performed By: #### C SF GLU, CSFCCDIFF, CSF TP #2, CSFCCDIFF #2, CSF TP, CSF GLU #2 #### [address] Mean Corpuscular HGB Conc 33.1 g/dL Normal 32.0-35.0 [facility] Comment on above: Performed By: #### C SF GLU, CSFCCDIFF, CSF TP #2, CSFCCDIFF #2, CSF TP, CSF GLU #2 #### [address] Monocytes (Bld) [#/Vol] 0.7 10*3/uL Normal 0.0-0.8 [facility] Comment on above: Performed By: #### C SF GLU, CSFCCDIFF, CSF TP #2, CSFCCDIFF #2, CSF TP, CSF GLU #2 #### [address] Monocytes/100 WBC (Bld) 5.1 % Normal . [facility] Comment on above: Performed By: #### C SF GLU, CSFCCDIFF, CSF TP #2, CSFCCDIFF #2, CSF TP, CSF GLU #2 #### [address] Neutrophils (Bld) [#/Vol] 8.3 10*3/uL High 1.8-7.7 [facility] Comment on above: Performed By: #### C SF GLU, CSFCCDIFF, CSF TP #2, CSFCCDIFF #2, CSF TP, CSF GLU #2 #### [address] Neutrophils/100 WBC (Bld) 61.3 % Normal . [facility] Comment on above: Performed By: #### C SF GLU, CSFCCDIFF, CSF TP #2, CSFCCDIFF #2, CSF TP, CSF GLU #2 #### [address] NRBC% 0.2 /100{WBC} Normal 0-0.5 [facility] Comment on above: Performed By: #### C SF GLU, CSFCCDIFF, CSF TP #2, CSFCCDIFF #2, CSF TP, CSF GLU #2 #### [address] Platelet mean volume (Bld) [Entitic vol] 6.9 fL Normal 6.3-10.7 [facility] Comment on above: Performed By: #### C SF GLU, CSFCCDIFF, CSF TP #2, CSFCCDIFF #2, CSF TP, CSF GLU #2 #### [place] [address] [place] Platelets (Bld) [#/Vol] 385 10*3/uL Normal 150-450 [facility] Comment on above: Performed By: #### C SF GLU, CSFCCDIFF, CSF TP #2, CSFCCDIFF #2, CSF TP, CSF GLU #2 #### [address] RBC (Bld) [#/Vol] 4.76 10*6/uL Normal 3.60-5.00 [facility] Comment on above: Performed By: #### C SF GLU, CSFCCDIFF, CSF TP #2, CSFCCDIFF #2, CSF TP, CSF GLU #2 #### [facility] [address] WBC (Bld) [#/Vol] 13.6 10*3/uL High 3.8-11.6 [facility] Comment on above: Performed By: #### C SF GLU, CSFCCDIFF, CSF TP #2, CSFCCDIFF #2, CSF TP, CSF GLU #2 #### [facility] [address] Comprehensive Metabolic Pane raimundo 11-04-2022 Albumin [Mass/Vol] 4.3 g/dL Normal 3.5-5.7 [facility] Comment on above: Performed By: #### C SF GLU, CSFCCDIFF, CSF TP #2, CSFCCDIFF #2, CSF TP, CSF GLU #2 #### [facility] [address] Albumin/Globulin [Mass ratio] 1.8 {ratio} Normal [facility] Comment on above: Performed By: #### C SF GLU, CSFCCDIFF, CSF TP #2, CSFCCDIFF #2, CSF TP, CSF GLU #2 #### [address] ALP [Catalytic activity/Vol] 94 U/L Normal 34-104 [facility] Comment on above: Performed By: #### C SF GLU, CSFCCDIFF, CSF TP #2, CSFCCDIFF #2, CSF TP, CSF GLU #2 #### [facility] [address] ALT [Catalytic activity/Vol] 20 U/L Normal 7-52 [facility] Comment on above: Performed By: #### C SF GLU, CSFCCDIFF, CSF TP #2, CSFCCDIFF #2, CSF TP, CSF GLU #2 #### [facility] [address] Anion gap [Moles/Vol] 11.1 mmol/L Normal 6.0-15.0 [facility] Comment on above: Performed By: #### C SF GLU, CSFCCDIFF, CSF TP #2, CSFCCDIFF #2, CSF TP, CSF GLU #2 #### [facility] [address] [place] [address] AST [Catalytic activity/Vol] 15 U/L Normal 13-39 [facility] Comment on above: Performed By: #### C SF GLU, CSFCCDIFF, CSF TP #2, CSFCCDIFF #2, CSF TP, CSF GLU #2 #### [address] Bilirubin [Mass/Vol] 0.3 mg/dL Normal 0.3-1.0 [facility] Comment on above: Performed By: #### C SF GLU, CSFCCDIFF, CSF TP #2, CSFCCDIFF #2, CSF TP, CSF GLU #2 #### [address] Calcium [Mass/Vol] 8.9 mg/dL Normal 8.6-10.3 [facility] Comment on above: Performed By: #### C SF GLU, CSFCCDIFF, CSF TP #2, CSFCCDIFF #2, CSF TP, CSF GLU #2 #### [place] [address] [place] Chloride [Moles/Vol] 110 mmol/L High 98-107 [facility] Comment on above: Performed By: #### C SF GLU, CSFCCDIFF, CSF TP #2, CSFCCDIFF #2, CSF TP, CSF GLU #2 #### [facility] [address] [place] [address] [place] CO2 [Moles/Vol] 23.8 mmol/L Normal 21.0-31.0 [facility] Comment on above: Performed By: #### C SF GLU, CSFCCDIFF, CSF TP #2, CSFCCDIFF #2, CSF TP, CSF GLU #2 #### [address] [place] [address] [place] Creatinine [Mass/Vol] 0.98 mg/dL Normal 0.60-1.20 [facility] Comment on above: Performed By: #### C SF GLU, CSFCCDIFF, CSF TP #2, CSFCCDIFF #2, CSF TP, CSF GLU #2 #### [facility] [address] [place] [address] [place] Creatinine Clr Calc Pharmacy 88.00 [facility] Comment on above: Performed By: #### C SF GLU, CSFCCDIFF, CSF TP #2, CSFCCDIFF #2, CSF TP, CSF GLU #2 #### [facility] [address] [place] [address] [place] GFR/1.73 sq M.predicted MDRD (S/P/Bld) [Vol rate/Area] mL/min/{1.73_m2} [facility] Comment on above: Performed By: #### C SF GLU, CSFCCDIFF, CSF TP #2, CSFCCDIFF #2, CSF TP, CSF GLU #2 #### [facility] [address] Globulin (S) [Mass/Vol] 2.4 g/dL [facility] Comment on above: Performed By: #### C SF GLU, CSFCCDIFF, CSF TP #2, CSFCCDIFF #2, CSF TP, CSF GLU #2 #### [facility] [address] Glucose [Mass/Vol] 115 mg/dL High 70-100 [facility] Comment on above: Result Comment: [facility] Glucose Reference Range is dependent on time and content of last meal. Glucose of more than 200 mg/dL in a nonstressed, ambulatory subject supports the diagnosis of Diabetes Mellitus. ADA recommended reference range Performed By: #### C SF GLU, CSFCCDIFF, CSF TP #2, CSFCCDIFF #2, CSF TP, CSF GLU #2 #### [facility] [address] Potassium [Moles/Vol] 3.9 mmol/L Normal 3.5-5.1 [facility] Comment on above: Performed By: #### C SF GLU, CSFCCDIFF, CSF TP #2, CSFCCDIFF #2, CSF TP, CSF GLU #2 #### [facility] [address] Protein [Mass/Vol] 6.7 g/dL Normal 6.4-8.9 [facility] Comment on above: Performed By: #### C SF GLU, CSFCCDIFF, CSF TP #2, CSFCCDIFF #2, CSF TP, CSF GLU #2 #### [facility] [address] Sodium [Moles/Vol] 141 mmol/L Normal 136-145 [facility] Comment on above: Performed By: #### C SF GLU, CSFCCDIFF, CSF TP #2, CSFCCDIFF #2, CSF TP, CSF GLU #2 #### [facility] [address] Urea nitrogen [Mass/Vol] 14 mg/dL Normal 7-25 [facility] Comment on above: Performed By: #### C SF GLU, CSFCCDIFF, CSF TP #2, CSFCCDIFF #2, CSF TP, CSF GLU #2 #### [facility] [address] Copperon 11-04-2022 Copper 117 ug/dL Normal 80-158 [facility] Comment on above: Result Comment: This test was developed and its performance characteristics determined by [employer]. It has not been cleared or approved by the Food and Drug Administration. Detection Limit = 5 Performed at: [address] [id number] Pleater: Juan Tejada MD, Phone: [phone] Performed By: #### C SF GLU, CSFCCDIFF, CSF TP #2, CSFCCDIFF #2, CSF TP, CSF GLU #2 #### [facility] [address] [place] [id number] [facility] Creatinine [Mass/volume] in Serum or PlasmaOrdered By: Nicki Duran on 11-04-2022 Creatinine [Mass/Vol] 0.98 mg/dL 0.60-1.20 [facility] Eosinophils Auto (Bld) [#/Vo l]Ordered By: Nicki Duran on 11-04-2022 Eosinophils (Bld) [#/Vol] 0.5 10*3/uL 0.0-0.45 [facility] Eosinophils/100 WBC Auto (Bl d)Ordered By: Nicki Duran on 11-04-2022 Eosinophils/100 WBC (Bld) 3.7 % . [facility] Erythrocyte distribution wid th Auto (RBC) [Ratio]Ordered By: Nicki Duran on 11-04-2022 Erythrocyte distribution width (RBC) [Ratio] 15.3 % 11.9-15.3 [facility] Ferritinon 11-04-2022 Ferritin [Mass/Vol] 25.8 ng/mL Normal 11.0-306.8 [facility] Comment on above: Result Comment: PERF ORMED BY: [place] [address] PATHOLOGIST RESTAURANT AND BAR MANAGER JUNIOR GREEN M.D. Performed By: #### C SF GLU, CSFCCDIFF, CSF TP #2, CSFCCDIFF #2, CSF TP, CSF GLU #2 #### [facility] [address] [place] [address] Ferritin [Mass/volume] in Se rum or PlasmaOrdered By: Nicki Wooddalton on 11-04-2022 Ferritin [Mass/Vol] 25.8 ng/mL 11.0-306.8 [facility] Free K+L LT Chains, Qn, Son 11-04-2022 Free Emma Light Chains, S 15.9 mg/L Normal 3.3-19.4 [facility] Comment on above: Performed By: #### C SF GLU, CSFCCDIFF, CSF TP #2, CSFCCDIFF #2, CSF TP, CSF GLU #2 #### [facility] [address] [place] [address] Free Lambda Light Chains, S 7.8 mg/L Normal 5.7-26.3 [facility] Comment on above: Performed By: #### C SF GLU, CSFCCDIFF, CSF TP #2, CSFCCDIFF #2, CSF TP, CSF GLU #2 #### [facility] [address] Emma/Lambda Ratio, S 2.04 High 0.26-1.65 [facility] Comment on above: Result Comment: Perf ormed at: CB - [facility] [address], [place], [place] [id number] Pleater: Chato Rincon PhD, Phone: [phone] PERFORMED BY: [place] [address] PATHOLOGIST RESTAURANT AND BAR MANAGER JUNIOR GREEN M.D. Performed By: #### C SF GLU, CSFCCDIFF, CSF TP #2, CSFCCDIFF #2, CSF TP, CSF GLU #2 #### [address] Globulin Calc (S) [Mass/Vol] Ordered By: Nicki Duran on 11-04-2022 Globulin (S) [Mass/Vol] 2.4 g/dL [facility] Glucose [Mass/volume] in Ser um or PlasmaOrdered [...] Hematocrit (Bld) [Volume fraction] 40.8 % 34.0-46.4 [facility] Hemoglobin [Mass/volume] in BloodOrdered By: Nicki Duran on 11-04-2022 Hemoglobin (Bld) [Mass/Vol] 13.5 g/dL 11.8-15.4 [facility] IgA [Mass/volume] in Serum o r PlasmaOrdered By: Nicki Druan on 11-04-2022 IgA [Mass/Vol] 92 mg/dL 87-352 [facility] IgG [Mass/volume] in Serum o r PlasmaOrdered By: Nicki Roger on 11-04-2022 IgG [Mass/Vol] 676 mg/dL 586-1602 [facility] IgM [Mass/volume] in Serum o r PlasmaOrdered By: Nicki Roger on 11-04-2022 IgM [Mass/Vol] 105 mg/dL 26-217 [facility] Immunofixation,Serumon 11-04 Immunofixation, Serum Normal . [facility] Comment on above: Result Comment: No m onoclonality detected. Performed By: #### C SF GLU, CSFCCDIFF, CSF TP #2, CSFCCDIFF #2, CSF TP, CSF GLU #2 #### [facility] [address] [place] [id number] [place] Immunoglobulin A, Serum 92 mg/dL Normal 87-352 [facility] Comment on above: Performed By: #### C SF GLU, CSFCCDIFF, CSF TP #2, CSFCCDIFF #2, CSF TP, CSF GLU #2 #### [facility] [address] [place] [address] [place] Immunoglobulin G 676 mg/dL Normal 586-1602 [facility] Comment on above: Performed By: #### C SF GLU, CSFCCDIFF, CSF TP #2, CSFCCDIFF #2, CSF TP, CSF GLU #2 #### [facility] [address] [place] [address] [place] Immunoglobulin M, Serum 105 mg/dL Normal 26-217 [facility] Comment on above: Performed By: #### C SF GLU, CSFCCDIFF, CSF TP #2, CSFCCDIFF #2, CSF TP, CSF GLU #2 #### [facility] [address] [place] [address] [place] Immunoglobulin light chains. kappa.free [Mass/volume] in SerumOrdered By: Nicki Duran on 11-04-2022 Immunoglobulin light chains.kappa.free (S) [Mass/Vol] 15.9 mg/L 3.3-19.4 [facility] Immunoglobulin light chains. kappa.free/Immunoglobulin light chains.lambda.free [MassOrdered By: Nicki Roger on 11-04-2022 Immunoglobulin light chains.kappa.free/Immu noglobulin light chains.lambda.free (S) [Mass ratio] 2.04 0.26-1.65 [facility] Comment on above: Performed at: [address] [id number] Director: Chato Rincon PhD, Phone: [phone] Immunoglobulin light chains. lambda.free [Mass/volume] in Serum or PlasmaOrdered By: Nicki Roger on 11-04-2022 Immunoglobulin light chains.lambda.free [Mass/Vol] 7.8 mg/L 5.7-26.3 [facility] Iron [Mass/volume] in Serum or PlasmaOrdered By: Nicki Duran on 11-04-2022 Iron [Mass/Vol] 55 ug/dL 50-212 [facility] Iron and TIBC Profileon 10-15 % Iron Saturation 14.1 % Low 20-50 [facility] Comment on above: Performed By: #### C SF GLU, CSFCCDIFF, CSF TP #2, CSFCCDIFF #2, CSF TP, CSF GLU #2 #### [facility] [address] [place] [id number] [place] Iron [Mass/Vol] 55 ug/dL Normal 50-212 [facility] Comment on above: Performed By: #### C SF GLU, CSFCCDIFF, CSF TP #2, CSFCCDIFF #2, CSF TP, CSF GLU #2 #### [facility] [address] [place] [id number] [place] Total Iron Binding Capacity 391 ug/dL Normal 255-450 [facility] Comment on above: Performed By: #### C SF GLU, CSFCCDIFF, CSF TP #2, CSFCCDIFF #2, CSF TP, CSF GLU #2 #### [facility] [address] [place] [id number] [place] Transferrin [Mass/Vol] 279 mg/dL Normal 203-362 [facility] Comment on above: Performed By: #### C SF GLU, CSFCCDIFF, CSF TP #2, CSFCCDIFF #2, CSF TP, CSF GLU #2 #### [facility] [address] [place] [id number] [place] Iron binding capacity [Mass/ volume] in Serum or PlasmaOrdered By: Nicki Duran on 11-04-2022 Iron binding capacity [Mass/Vol] 391 ug/dL 255-450 [facility] Iron saturation [Mass Fracti on] in Serum or PlasmaOrdered By: Nicki Duran on 11-04-2022 Iron saturation [Mass fraction] 14.1 % 20-50 [facility] LDH Lactate Dehydrogenaseon 11-04-2022 LDH Lactate Dehydrogenase 153 U/L Normal 140-271 [facility] Comment on above: Performed By: #### C SF GLU, CSFCCDIFF, CSF TP #2, CSFCCDIFF #2, CSF TP, CSF GLU #2 #### [facility] [address] [place] [address] [place] Lactate dehydrogenase [Enzym atic activity/volume] in Serum or Plasma by Lactate to pyOrdered By: Nicki Duran on 11-04-2022 LDH Lactate to pyruvate reaction [Catalytic activity/Vol] 153 U/L 140-271 [facility] Leukocytes [#/volume] correc [place] for nucleated erythrocytes in Blood by Automated counOrdered By: Nicki Duran on 11-04-2022 WBC corrected for nucl RBC Auto (Bld) [#/Vol] 13.6 10*3/uL 3.8-11.6 [facility] Lymphocytes Auto (Bld) [#/Vo l]Ordered By: Nicki Duran on 11-04-2022 Lymphocytes (Bld) [#/Vol] 4.0 10*3/uL 1.00-4.8 [facility] Lymphocytes/100 WBC Auto (Bl d)Ordered By: Nicki Duran on 11-04-2022 Lymphocytes/100 WBC (Bld) 29.2 % . [facility] MCH Auto (RBC) [Entitic mass ]Ordered By: Nicki Duran on 11-04-2022 MCH (RBC) [Entitic mass] 28.4 pg 24.7-34.3 [facility] MCHC Auto (RBC) [Mass/Vol]Or dered By: Nicki Duran on 11-04-2022 MCHC (RBC) [Mass/Vol] 33.1 g/dL 32.0-35.0 [facility] MCV Auto (RBC) [Entitic vol] Ordered By: Nicki Roegr on 11-04-2022 MCV (RBC) [Entitic vol] 85.7 fL 80-100 [facility] Monocyte %Ordered By: Nicki Erinn bradley on 11-04-2022 Monocyte % 117 ug/dL 80-158 [facility] Comment on above: This test was develo ped and its performance characteristicsdetermined by [employer]. It has not been cleared orapproved by the Food and Drug Administration. Detection Limit = 5Performed at: [facility] [address] [id number] Director: Juan Tejada MD, Phone: [phone] Monocytes Auto (Bld) [#/Vol] Ordered By: Nicki Duran on 11-04-2022 Monocytes (Bld) [#/Vol] 0.7 10*3/uL 0.0-0.8 [facility] Monocytes/100 WBC Auto (Bld) Ordered By: Nicki Duran on 11-04-2022 Monocytes/100 WBC (Bld) 5.1 % . [facility] Neutrophils Auto (Bld) [#/Vo l]Ordered By: Nicki Duran on 11-04-2022 Neutrophils (Bld) [#/Vol] 8.3 10*3/uL 1.8-7.7 [facility] Neutrophils/100 WBC Auto (Bl d)Ordered By: Nicki Duran on 11-04-2022 Neutrophils/100 WBC (Bld) 61.3 % . [facility] No Panel InformationOrdered By: Nicki Duran on 11-04-2022 Estimated GFR (CKD-EPI) > 60.0 mL/Min [facility] Pharmacy Creatinine Clearance (Chem 88.00 [facility] Protein Electrophoresis M-Antwan Not observed g/dL Not Observed [facility] Protein Electrophoresis Note See comment . [facility] Comment on above: Protein electrophore sis scan will follow via computer,mail, or cad designer delivery.Performed at: [facility] CenterRgjjst[address] [place], [place] [id number] Director: Chato Rincon PhD, Phone: [phone] Serum Immunofixation See comment . [facility] Comment on above: No monoclonality det ected. Nucleated erythrocytes [Pres ence] in Blood by Automated countOrdered By: Nicki Duran on 11-04-2022 Nucleated RBC Auto Ql (Bld) 0.2 /100{WBC} 0-0.5 [facility] Platelet mean volume Auto (B ld) [Entitic vol]Ordered By: Nicki Duran on 11-04-2022 Platelet mean volume (Bld) [Entitic vol] 6.9 fL 6.3-10.7 [facility] Platelets Auto (Bld) [#/Vol] Ordered By: Nicki Duran on 11-04-2022 Platelets (Bld) [#/Vol] 385 10*3/uL 150-450 [facility] Potassium [Moles/volume] in Serum or PlasmaOrdered By: Nicki Duran on 11-04-2022 Potassium [Moles/Vol] 3.9 mmol/L 3.5-5.1 [facility] Protein Electrophoresis, Ser umon 11-04-2022 Albumin [Mass/Vol] 3.6 g/dL Normal 2.9-4.4 [facility] Comment on above: Performed By: #### C SF GLU, CSFCCDIFF, CSF TP #2, CSFCCDIFF #2, CSF TP, CSF GLU #2 #### [facility] [address] Albumin/Globulin [Mass ratio] 1.2 {ratio} Normal 0.7-1.7 [facility] Comment on above: Performed By: #### C SF GLU, CSFCCDIFF, CSF TP #2, CSFCCDIFF #2, CSF TP, CSF GLU #2 #### [facility] [address] [place] [address] [place] [id number] 0.3 g/dL Normal 0.0-0.4 [facility] Comment on above: Performed By: #### C SF GLU, CSFCCDIFF, CSF TP #2, CSFCCDIFF #2, CSF TP, CSF GLU #2 #### [address] [id number] 0.9 g/dL Normal 0.4-1.0 [facility] Comment on above: Performed By: #### C SF GLU, CSFCCDIFF, CSF TP #2, CSFCCDIFF #2, CSF TP, CSF GLU #2 #### [address] Beta Globulin 1.1 g/dL Normal 0.7-1.3 [facility] Comment on above: Performed By: #### C SF GLU, CSFCCDIFF, CSF TP #2, CSFCCDIFF #2, CSF TP, CSF GLU #2 #### [address] Gamma Globulin 0.8 g/dL Normal 0.4-1.8 [facility] Comment on above: Performed By: #### C SF GLU, CSFCCDIFF, CSF TP #2, CSFCCDIFF #2, CSF TP, CSF GLU #2 #### [address] Globulin (S) [Mass/Vol] 3.0 g/dL Normal 2.2-3.9 [facility] Comment on above: Performed By: #### C SF GLU, CSFCCDIFF, CSF TP #2, CSFCCDIFF #2, CSF TP, CSF GLU #2 #### [address] M-Antwan Not Observed Normal Not Observed [facility] Comment on above: Performed By: #### C SF GLU, CSFCCDIFF, CSF TP #2, CSFCCDIFF #2, CSF TP, CSF GLU #2 #### [address] Protein [Mass/Vol] 6.6 g/dL Normal 6.0-8.5 [facility] Comment on above: Performed By: #### C SF GLU, CSFCCDIFF, CSF TP #2, CSFCCDIFF #2, CSF TP, CSF GLU #2 #### [facility] [address] [place] [address] [place] SPE-Note Normal . [facility] Comment on above: Result Comment: Prot ein electrophoresis scan will follow via computer, mail, or cad designer delivery. Performed at: [facility] [address] [id number] Pleater: Chato Rincon PhD, Phone: [phone] Performed By: #### C SF GLU, CSFCCDIFF, CSF TP #2, CSFCCDIFF #2, CSF TP, CSF GLU #2 #### [facility] [address] [place] [id number] [place] Protein [Mass/volume] in Ser um or PlasmaOrdered By: Nicki Duran on 11-04-2022 Protein [Mass/Vol] 6.7 g/dL 6.4-8.9 [facility] Protein [Mass/Vol] 6.6 g/dL 6.0-8.5 [facility] RBC Auto (Bld) [#/Vol]Ordere d By: Nicki Duran on 11-04-2022 RBC (Bld) [#/Vol] 4.76 10*6/uL 3.60-5.00 [facility] Serum globulin measurement ( mass/volume)Ordered By: Nicki Duran on 11-04-2022 Globulin (S) [Mass/Vol] 3.0 g/dL 2.2-3.9 [facility] Serum or plasma albumin/glob ulin mass ratioOrdered By: Nicki Duran on 11-04-2022 Albumin/Globulin [Mass ratio] 1.8 {ratio} [facility] Albumin/Globulin [Mass ratio] 1.2 {ratio} 0.7-1.7 [facility] Serum or plasma alpha 1 glob ulin measurement by electrophoresis (mass/volume)Ordered By: Nicki Duran on 11-04-2022 Alpha 1 globulin Elph [Mass/Vol] 0.3 g/dL 0.0-0.4 [facility] Serum or plasma alpha 2 glob ulin measurement by electrophoresis (mass/volume)Ordered By: Nicki Duran on 11-04-2022 Alpha 2 globulin Elph [Mass/Vol] 0.9 g/dL 0.4-1.0 [facility] Serum or plasma anion gap de terminationOrdered By: Nicki Roger on 11-04-2022 Anion gap [Moles/Vol] 11.1 mmol/L 6.0-15.0 [facility] Serum or plasma beta globuli n measurement by electrophoresis (mass/volume)Ordered By: Nicki Duran on 11-04-2022 Beta globulin Elph [Mass/Vol] 1.1 g/dL 0.7-1.3 [facility] Serum or plasma gamma globul in measurement by electrophoresis (mass/volume)Ordered By: Nicki Duran on 11-04-2022 Gamma globulin Elph [Mass/Vol] 0.8 g/dL 0.4-1.8 [facility] Sodium [Moles/volume] in Ser um or PlasmaOrdered By: Nicki Duran on 11-04-2022 Sodium [Moles/Vol] 141 mmol/L 136-145 [facility] Transferrin [Mass/volume] in Serum or PlasmaOrdered By: Nicki Duran on 11-04-2022 Transferrin [Mass/Vol] 279 mg/dL 203-362 [facility] Urea nitrogen [Mass/volume] in Serum or PlasmaOrdered By: Nicki Roger on 11-04-2022 Urea nitrogen [Mass/Vol] 14 mg/dL 7-25 [facility] WBC Auto (Bld) [#/Vol]Ordere d By: Nicki Duran on 11-04-2022 WBC (Bld) [#/Vol] 13.6 10*3/uL 3.8-11.6 [facility] INSULINon 06-30-2022 Insulin 16.0 uIU/mL Normal 2.6-24.9 [facility] Comment on above: Performed By: #### I NSULIN #### [facility] [address] [address] [address] Moriah Schulz CBC AUTO DIFFon 06-28-2022 BASO # 0.1 103/ul Normal 0.0-0.1 [facility] Comment on above: Performed By: #### C BC #### [facility] [address] [place] [address] Dr. Moriah Schulz Basophils/100 WBC (Bld) 0.6 % Normal 0.2-2.0 [facility] Comment on above: Performed By: #### C BC #### [facility] [address] [place] [address] Dr. Moriah Schulz EO # 0.3 103/ul Normal 0.0-0.7 [facility] Comment on above: Performed By: #### C BC #### [facility] [address] [place] [address] Dr. Moriah Schulz Eosinophils/100 WBC (Bld) 3.0 % Normal 0.9-7.0 [facility] Comment on above: Performed By: #### C BC #### [facility] [address] [place] [address] Dr. Moriah Schulz Erythrocyte distribution width (RBC) [Ratio] 14.9 % Normal 11.0-15.0 [facility] Comment on above: Performed By: #### C BC #### [facility] [address] [place] [address] Dr. Moriah Schulz Hematocrit (Bld) [Volume fraction] 36.9 % Normal 36.0-48.0 [facility] Comment on above: Performed By: #### C BC #### [facility] [address] [place] [address] Dr. Moriah Schulz Hemoglobin (Bld) [Mass/Vol] 12.1 g/dL Normal 12.0-16.0 [facility] Comment on above: Performed By: #### C BC #### [facility] [address] [place] [address] Dr. Moriah Schulz IG # 0.03 10e3/ul Normal 0.00-0.03 [facility] Comment on above: Performed By: #### C BC #### [facility] [address] [place] [address] Dr. Moriah Schulz IG % 0.3 % Normal 0.0-0.5 [facility] Comment on above: Performed By: #### C BC #### [facility] [address] [place] [address] Dr. Moriah Schulz LYMPH # 2.8 103/ul Normal 1.2-3.8 [facility] Comment on above: Performed By: #### C BC #### [facility] [address] [place] [address] Dr. Moriah Schulz Lymphocytes/100 WBC (Bld) 29.1 % Normal 20.5-60.0 [facility] Comment on above: Performed By: #### C BC #### [facility] [address] [place] [address] Dr. Moriah Schulz MANUAL DIFF REQ NO Normal [facility] Comment on above: Performed By: #### C BC #### [facility] [address] [place] [address] Dr. Moriah Schulz MCH (RBC) [Entitic mass] 28.5 pg Normal 26.7-34.0 [facility] Comment on above: Performed By: #### C BC #### [facility] [address] [place] [address] Dr. Moriah Schulz MCHC (RBC) [Mass/Vol] 32.8 g/dL Normal 29.9-35.2 [facility] Comment on above: Performed By: #### C BC #### [facility] [address] [place] [address] Dr. Moriah Schulz MCV (RBC) [Entitic vol] 86.8 fL Normal 81.0-99.0 [facility] Comment on above: Performed By: #### C BC #### [facility] [address] [place] [address] Dr. Moriah Schulz MONO # 0.5 103/ul Normal 0.3-0.8 [facility] Comment on above: Performed By: #### C BC #### [facility] [address] [place] [address] Dr. Moriah Schulz Monocytes/100 WBC (Bld) 5.1 % Normal 1.7-12.0 [facility] Comment on above: Performed By: #### C BC #### [facility] [address] [address] [address] Moriah Schulz NEUT # 5.9 103/ul Normal 1.4-6.5 [facility] Comment on above: Performed By: #### C BC #### [facility] [address] [place] [address] Dr. Moriah Schulz Neutrophils/100 WBC (Bld) 61.9 % Normal 43.0-75.0 [facility] Comment on above: Performed By: #### C BC #### [facility] [address] [place] [address] Dr. Moriah Schulz Platelet mean volume (Bld) [Entitic vol] 8.2 fL Critically low 9.5-13.5 [facility] Comment on above: Performed By: #### C BC #### [facility] [address] [place] [address] Dr. Moriah Schulz PLT 280 103/ul Normal 150-450 [facility] Comment on above: Performed By: #### C BC #### [facility] [address] [place] [address] Dr. Moriah Schulz RBC 4.25 106/ul Normal 4.20-5.40 [facility] Comment on above: Performed By: #### C BC #### [facility] [address] [place] [address] Dr. Moriah Schulz WBC 9.6 103/ul Normal 4.0-11.0 [facility] Comment on above: Performed By: #### C BC #### [facility] [address] [place] [address] Dr. Moriah Schulz FREE THYROXINE INDEX T7on FTI 2.01 Normal 1.30-4.50 [facility] Comment on above: Performed By: #### T 7, CMP, LIPID, TSH #### [facility] [address] [place] [address] Dr. Moriah Schulz T3U 30.0 % Normal 30.0-39.0 [facility] Comment on above: Performed By: #### T 7, CMP, LIPID, TSH #### [facility] [address] [place] [address] Dr. Moriah Scuhlz T4 [Mass/Vol] 6.70 ug/dL Normal 4.80-13.90 [facility] Comment on above: Performed By: #### T 7, CMP, LIPID, TSH #### [facility] [address] [address] [address] Moriah Schulz GLYCOHEMOGLOBIN A1Con 2022 ADA RECOMMENDATION SEE BELOW Normal [facility] Comment on above: Result Comment: ADA RECOMMENDED LIMIT 4.0 - 6.0 ADA THERAPEUTIC TARGET < 7.0 ACTION SUGGESTED > 7.0 Performed By: #### A 1C ####[facility] [id number] [address]Dr. Moriah Schulz HbA1c (Bld) [Mass fraction] 5.2 % Normal 4.5-6.2 [facility] Comment on above: Performed By: #### A 1C ####[facility] [id number] [place] [address]Dr. Moriah Schulz IRONon 06-28-2022 Iron [Mass/Vol] 47.0 ug/dL Critically low 50.0-170.0 [facility] Comment on above: Performed By: #### I SANDY ####[facility] [id number] [place], [place] [address]Dr. Moriah Schulz LIPID PROFILEon 06-28-2022 CHOL-HDL RATIO NORM SEE BELOW Normal [facility] Comment on above: Result Comment: 3.3 - 4.4 LOW RISK 4.4 - 7.1 AVERAGE RISK 7.1 - 11.0 MODERATE RISK >11.0 HIGH RISK Performed By: #### T 7, CMP, LIPID, TSH #### [facility] [address] [place] [address] Dr. Moriah Schulz Cholesterol [Mass/Vol] 260 mg/dL Critically high <=200 [facility] Comment on above: Performed By: #### T 7, CMP, LIPID, TSH #### [facility] [address] [address] [address] Moriah Schulz Cholesterol in HDL [Mass/Vol] 41 mg/dL Normal 40-60 [facility] Comment on above: Performed By: #### T 7, CMP, LIPID, TSH #### [facility] [address] [address] [address] Moriah Schulz Cholesterol in LDL [Mass/Vol] 192.6 mg/dL Normal [facility] Comment on above: Performed By: #### T 7, CMP, LIPID, TSH #### [facility] [address] [place] [address] Dr. Moriah Schulz Cholesterol.total/Chol esterol in HDL [Mass ratio] 6.3 {ratio} Normal [facility] Comment on above: Performed By: #### T 7, CMP, LIPID, TSH #### [facility] [address] [address] [address] Moriah Schulz HDL NORMAL > or = 60 mg/dl - LO W CARDIOVASCULAR RISK <40 mg/dl - HIGH CARDIOVASCULAR RISK Normal [facility] Comment on above: Performed By: #### T 7, CMP, LIPID, TSH #### [facility] [address] [place] [address] Dr. Moriah Schulz LDL CALC NORMAL SEE BELOW Normal [facility] Comment on above: Result Comment: <100 mg/dl OPTIMAL 100 - 129 mg/dl NEAR OR ABOVE OPTIMAL 130 - 159 mg/dl BORDERLINE HIGH 160 - 189 mg/dl HIGH >190 mg/dl VERY HIGH Performed By: #### T 7, CMP, LIPID, TSH #### [facility] [address] [place] [address] Dr. Moriah Schulz Triglyceride [Mass/Vol] 132 mg/dL Normal <=150 [facility] Comment on above: Performed By: #### T 7, CMP, LIPID, TSH #### [facility] [address] [place] [address] Dr. Moriah Schulz VLDL CALC 26.4 mg/dL Normal [facility] Comment on above: Performed By: #### T 7, CMP, LIPID, TSH #### [facility] [address] [place] [address] Dr. Moriah Schulz PROF 14(COMP METB)on 023 Albumin [Mass/Vol] 3.7 g/dL Normal 3.4-5.0 [facility] Comment on above: Performed By: #### T 7, CMP, LIPID, TSH #### [facility] [address] [address] [address] Moriah Schulz Albumin/Globulin [Mass ratio] 1.0 {ratio} Normal [facility] Comment on above: Performed By: #### T 7, CMP, LIPID, TSH #### [facility] [address] [address] [address] Moriah Schulz ALP [Catalytic activity/Vol] 90 U/L Normal 46-116 [facility] Comment on above: Performed By: #### T 7, CMP, LIPID, TSH #### [facility] [address] [address] [address] Moriah Schulz ALT [Catalytic activity/Vol] 38 U/L Normal 14-59 [facility] Comment on above: Performed By: #### T 7, CMP, LIPID, TSH #### [facility] [address] [address] [address] Moriah Schulz Anion gap [Moles/Vol] 12.4 mmol/L Normal [facility] Comment on above: Performed By: #### T 7, CMP, LIPID, TSH #### [facility] [address] [address] [address] Moriah Schulz AST [Catalytic activity/Vol] 15 U/L Normal 15-37 [facility] Comment on above: Performed By: #### T 7, CMP, LIPID, TSH #### [facility] [address] [address] [address] Moriah Schulz Bilirubin [Mass/Vol] 0.3 mg/dL Normal 0.2-1.0 [facility] Comment on above: Performed By: #### T 7, CMP, LIPID, TSH #### [facility] [address] [place] [address] Dr. Moriah Schulz Calcium [Mass/Vol] 8.8 mg/dL Normal 8.5-10.1 [facility] Comment on above: Performed By: #### T 7, CMP, LIPID, TSH #### [facility] [address] [place] [address] Dr. Moirah Schulz Chloride [Moles/Vol] 101 mmol/L Normal 98-107 [facility] Comment on above: Performed By: #### T 7, CMP, LIPID, TSH #### [facility] [address] [address] [address] Moriah Schulz CO2 [Moles/Vol] 29.2 mmol/L Normal 21.0-32.0 [facility] Comment on above: Performed By: #### T 7, CMP, LIPID, TSH #### [facility] [address] [address] [address] Moriah Schulz Creatinine [Mass/Vol] 0.99 mg/dL Normal 0.55-1.02 [facility] Comment on above: Performed By: #### T 7, CMP, LIPID, TSH #### [facility] [address] [place] [address] Dr. Moriah Schulz EGFR-AF TRISTANIAN >60 Normal >=60 [facility] Comment on above: Performed By: #### T 7, CMP, LIPID, TSH #### [facility] [address] [place] [address] Dr. Moriah Schulz EGFR-NON AF TRISTANIAN >60 Normal >=60 [facility] Comment on above: Performed By: #### T 7, CMP, LIPID, TSH #### [facility] [address] [place] [address] Dr. Moriah Schulz Globulin (S) [Mass/Vol] 3.7 g/dL Normal [facility] Comment on above: Performed By: #### T 7, CMP, LIPID, TSH #### [facility] [address] [place] [address] Dr. Moriah Schulz Glucose [Mass/Vol] 103 mg/dL Normal [facility] Comment on above: Performed By: #### T 7, CMP, LIPID, TSH #### [facility] [address] [place] [address] Dr. Moriah Schulz Performed By: #### A 1C ####[facility] [id number] [address]Dr. Moriah Schulz Potassium [Moles/Vol] 3.6 mmol/L Normal 3.5-5.1 [facility] Comment on above: Performed By: #### T 7, CMP, LIPID, TSH #### [facility] [address] [address] [address] Moriah Schulz Protein [Mass/Vol] 7.4 g/dL Normal 6.4-8.2 [facility] Comment on above: Performed By: #### T 7, CMP, LIPID, TSH #### [facility] [address] [place] [address] Dr. Moriah Schulz Sodium [Moles/Vol] 139 mmol/L Normal 136-145 [facility] Comment on above: Performed By: #### T 7, CMP, LIPID, TSH #### [facility] [address] [place] [address] Dr. Moriah Schulz Urea nitrogen [Mass/Vol] 14.0 mg/dL Normal 7.0-18.0 [facility] Comment on above: Performed By: #### T 7, CMP, LIPID, TSH #### [facility] [address] [place] [address] Dr. Moriah Schulz Urea nitrogen/Creatinine [Mass ratio] 14.1 mg/mg Normal [facility] Comment on above: Performed By: #### T 7, CMP, LIPID, TSH #### [facility] [address] [place] [address] Dr. Moriah Schulz TSHon 06-28-2022 TSH 3.338 uIU/mL Normal 0.358-3.740 [facility] Comment on above: Performed By: #### T 7, CMP, LIPID, TSH #### [facility] [address] [place] [address] Dr. Moriah Schulz Albumin [Mass/volume] in Ser um or PlasmaOrdered By: Jenny Reis on 11-21-2021 Albumin [Mass/Vol] 4.1 g/dL 3.2-5.5 [facility] Basophils Auto (Bld) [#/Vol] Ordered By: Jenny Reis on 11-21-2021 Basophils (Bld) [#/Vol] 0.1 10*3/uL 0.0-0.2 [facility] Basophils/100 WBC Auto (Bld) Ordered By: Jenny Reis on 11-21-2021 Basophils/100 WBC (Bld) 0.8 % . [facility] Blood hemoglobin measurement (mass/volume)Ordered By: Jenny Reis on 11-21-2021 Hemoglobin (Bld) [Mass/Vol] 13.4 g/dL 11.8-15.4 [facility] Blood leukocytes automated c ount (number/volume)Ordered By: Jenny Reis on 11-21-2021 WBC (Bld) [#/Vol] 13.9 10*3/uL 4.5-11.0 [facility] Cholesterol [Mass/volume] in Serum or PlasmaOrdered By: Jenny Reis on 11-21-2021 Cholesterol [Mass/Vol] 240 mg/dL 140-200 [facility] Comment on above: Chol less than 200 m g/dl low risk Chol 201-239 mg/dl borderline risk Chol 240 mg/dl and greater high risk Cholesterol in LDL Calc [Mas s/Vol]Ordered By: Jenny Reis on 11-21-2021 Cholesterol in LDL [Mass/Vol] 143 mg/dL 0-100 [facility] Comment on above: LDL ATP III CLASSIFI CATION LDL less than 100 mg/dL Optimal LDL 100-129 mg/dL Near or above optimal LDL 130-159 mg/dL Borderline high LDL 160-189 mg/dL High LDL greater than 189 mg/dL Very high Cholesterol in VLDL Calc [Ma ss/Vol]Ordered By: Jenny Reis on 11-21-2021 Cholesterol in VLDL [Mass/Vol] 59 mg/dL [facility] Creatinine and Glomerular fi ltration rate.predicted panel (S/P/Bld)Ordered By: Jenny Reis on 11-21-2021 Creatinine [Mass/Vol] 0.99 mg/dL 0.44-1.03 [facility] Eosinophils Auto (Bld) [#/Vo l]Ordered By: Jenny Reis on 11-21-2021 Eosinophils (Bld) [#/Vol] 0.4 10*3/uL 0.0-0.45 [facility] Eosinophils/100 WBC Auto (Bl d)Ordered By: Jenny Reis on 11-21-2021 Eosinophils/100 WBC (Bld) 3.1 % . [facility] Erythrocyte distribution wid th Auto (RBC) [Ratio]Ordered By: Jenny Reis on 11-21-2021 Erythrocyte distribution width (RBC) [Ratio] 15.3 % 11.9-15.3 [facility] Estimated glomerular filtrat ion rate (GFR) non- AmericanOrdered By: Jenny Reis on 11-21-2021 GFR/1.73 sq M.predicted among non-blacks MDRD (S/P/Bld) [Vol rate/Area] > 60 mL/Min [facility] Globulin Calc (S) [Mass/Vol] Ordered By: Jenny Reis on 11-21-2021 Globulin (S) [Mass/Vol] 2.9 g/dL [facility] Glucose mean value [Mass/vol ume] in Blood Estimated from glycated hemoglobinOrdered By: Jenny Reis on 11-21-2021 Average glucose Estimated from glycated hemoglobin (Bld) [Mass/Vol] 128 mg/dL [facility] Hematocrit Auto (Bld) [Volum e fraction]Ordered By: Jenny Reis on 11-21-2021 Hematocrit (Bld) [Volume fraction] 40.5 % 34.0-46.4 [facility] Hemoglobin A1c percentageOrd ered By: Jenny Reis on 11-21-2021 HbA1c (Bld) [Mass fraction] 6.1 % 4.3-5.6 [facility] Comment on above: Increased risk for d iabetes: 5.7 - 6.4 diabetes: >6.4 glycemic control for adults with diabetes: <7.0 Iron [Mass/volume] in Serum or PlasmaOrdered By: Jenny Reis on 11-21-2021 Iron [Mass/Vol] 54 ug/dL 40-150 [facility] Laboratory - Hematology and Cell countsOrdered By: Jenny Reis on 11-21-2021 Nucleated RBC/100 WBC (Bld) [Ratio] 0.1 % 0-0.5 [facility] Lymphocytes Auto (Bld) [#/Vo l]Ordered By: Jenny Reis on 11-21-2021 Lymphocytes (Bld) [#/Vol] 2.6 10*3/uL 1.00-4.8 [facility] Lymphocytes/100 WBC Auto (Bl d)Ordered By: Jenny Reis on 11-21-2021 Lymphocytes/100 WBC (Bld) 18.6 % . [facility] MCH Auto (RBC) [Entitic mass ]Ordered By: Jenny Reis on 11-21-2021 MCH (RBC) [Entitic mass] 28.2 pg 24.7-34.3 [facility] MCHC Auto (RBC) [Mass/Vol]Or dered By: Jenny Reis on 11-21-2021 MCHC (RBC) [Mass/Vol] 33.2 g/dL 32.0-35.0 [facility] MCV Auto (RBC) [Entitic vol] Ordered By: Jenny Reis on 11-21-2021 MCV (RBC) [Entitic vol] 85.2 fL 80-100 [facility] Monocytes Auto (Bld) [#/Vol] Ordered By: Jenny Reis on 11-21-2021 Monocytes (Bld) [#/Vol] 0.7 10*3/uL 0.0-0.8 [facility] Monocytes/100 WBC Auto (Bld) Ordered By: Jenny Reis on 11-21-2021 Monocytes/100 WBC (Bld) 4.7 % . [facility] Neutrophils Auto (Bld) [#/Vo l]Ordered By: Jenny Reis on 11-21-2021 Neutrophils (Bld) [#/Vol] 10.1 10*3/uL 1.8-7.7 [facility] Neutrophils/100 WBC Auto (Bl d)Ordered By: Jenny Reis on 11-21-2021 Neutrophils/100 WBC (Bld) 72.8 % . [facility] No Panel InformationOrdered By: Jenny Reis on 11-21-2021 Estimated GFR () > 60 mL/Min [facility] Comment on above: GFR estimated refere nce range: According to KDOQI guidelines, <60 ml/min/1.73m2 is sufficient to diagnose a patient with chronic kidney disease. Pharmacy Creatinine Clearance (Chem N/A [facility] Platelet mean volume Auto (B ld) [Entitic vol]Ordered By: Jenny Reis on 11-21-2021 Platelet mean volume (Bld) [Entitic vol] 6.4 fL 6.3-10.7 [facility] Platelets Auto (Bld) [#/Vol] Ordered By: Jenny Reis on 11-21-2021 Platelets (Bld) [#/Vol] 467 10*3/uL 150-450 [facility] Protein [Mass/volume] in Ser um or PlasmaOrdered By: Jenny Reis on 11-21-2021 Protein [Mass/Vol] 7.0 g/dL 6.1-7.9 [facility] RBC Auto (Bld) [#/Vol]Ordere d By: Jenny Reis on 11-21-2021 RBC (Bld) [#/Vol] 4.75 10*6/uL 3.60-5.00 [facility] Serum or plasma alanine henderson otransferase measurement without P-5'-P (enzymatic activiOrdered By: Jenny Reis on 11-21-2021 ALT No additional P-5'-P [Catalytic activity/Vol] 22 U/L 10-60 [facility] Serum or plasma albumin/glob ulin mass ratioOrdered By: Jenny Reis on 11-21-2021 Albumin/Globulin [Mass ratio] 1.4 {ratio} [facility] Serum or plasma alkaline nataliia sphatase measurement (enzymatic activity/volume)Ordered By: Jenny Reis on 11-21-2021 ALP [Catalytic activity/Vol] 84 U/L 32-92 [facility] Serum or plasma anion gap de terminationOrdered By: Jenny Reis on 11-21-2021 Anion gap [Moles/Vol] 15.1 mmol/L 6.0-15.0 [facility] Serum or plasma aspartate am inotransferase measurement (enzymatic activity/volume)Ordered By: Jenny Reis on 11-21-2021 AST [Catalytic activity/Vol] 22 U/L 10-42 [facility] Serum or plasma calcium everardo urement (mass/volume)Ordered By: Jenny Reis on 11-21-2021 Calcium [Mass/Vol] 9.0 mg/dL 8.2-10.2 [facility] Serum or plasma chloride jero surement (moles/volume)Ordered By: Jenny Reis on 11-21-2021 Chloride [Moles/Vol] 101 mmol/L 95-114 [facility] Serum or plasma glucose everardo urement (mass/volume)Ordered [...] Cholesterol in HDL [Mass/Vol] 37 mg/dL 35-85 [facility] Comment on above: HDL CHOL ATP-III CLA SSIFICATION Cardiovascular Risk HDL > or equal to 60 mg/dL LOW HDL < 40 mg/dL HIGH Serum or plasma potassium me asurement (moles/volume)Ordered By: Jenny Reis on 11-21-2021 Potassium [Moles/Vol] 3.9 mmol/L 3.5-5.1 [facility] Serum or plasma sodium measu rement (moles/volume)Ordered By: Jenny Reis on 11-21-2021 Sodium [Moles/Vol] 135 mmol/L 136-146 [facility] Serum or plasma total biliru bin measurement (mass/volume)Ordered By: Jenny Reis on 11-21-2021 Bilirubin [Mass/Vol] 0.6 mg/dL 0.3-1.2 [facility] Serum or plasma total carbon dioxide measurement (moles/volume)Ordered By: Jenny Reis on 11-21-2021 CO2 [Moles/Vol] 22.8 mmol/L 22.0-30.0 [facility] Serum or plasma total choles terol/high density lipoprotein (HDL) cholesterol mass ratOrdered By: Jenny Reis on 11-21-2021 Cholesterol.total/Chol esterol in HDL [Mass ratio] 6.5 {ratio} <5.0 [facility] Serum or plasma urea nitroge n measurement (mass/volume)Ordered By: Jenny Reis on 11-21-2021 Urea nitrogen [Mass/Vol] 10 mg/dL 9-23 [facility] Triglyceride [Mass/volume] i n Serum or PlasmaOrdered By: Jenny Reis on 11-21-2021 Triglyceride [Mass/Vol] 299 mg/dL 35-149 [facility] Comment on above: TRIG ATP III CLASSIF ICATION TRIG less than 150 mg/dL Normal TRIG 150-199 mg/dL Borderline high TRIG 200-500 mg/dL High TRIG greater than 500 mg/dL Very high Standard traceable to the Center for Disease Conrtrol and Prevention (CDC) test method. CBC AUTO DIFFon 08-12-2021 BASO # 0.1 103/ul Normal 0.0-0.1 [facility] Comment on above: Performed By: #### C BC ####[facility] [address] [place] [address]Dr. Moriah Schulz Basophils/100 WBC (Bld) 0.6 % Normal 0.2-2.0 [facility] Comment on above: Performed By: #### C BC ####[facility] [address] [place] [address]Dr. Inatrang Schulz EO # 0.3 103/ul Normal 0.0-0.7 [facility] Comment on above: Performed By: #### C BC ####[facility] [address] [place], [place] [address]Dr. Moriah Schulz Eosinophils/100 WBC (Bld) 2.4 % Normal 0.9-7.0 [facility] Comment on above: Performed By: #### C BC ####[facility] [address] [place] [address]Dr. Moriah Schulz Erythrocyte distribution width (RBC) [Ratio] 13.4 % Normal 11.0-15.0 [facility] Comment on above: Performed By: #### C BC ####[facility] [address] [place], [place] [address]Dr. Moriah Schulz Hematocrit (Bld) [Volume fraction] 38.5 % Normal 36.0-48.0 [facility] Comment on above: Performed By: #### C BC ####[facility] [address] [place] [address]Dr. Moriah Schulz Hemoglobin (Bld) [Mass/Vol] 12.4 g/dL Normal 12.0-16.0 [facility] Comment on above: Performed By: #### C BC ####[facility] [address] [place] [address]Dr. Moriah Schulz IG # 0.05 10e3/ul Critically high 0.00-0.03 [facility] Comment on above: Performed By: #### C BC ####[facility] [address] [place], [place] [address]Dr. Moriah Schulz IG % 0.4 % Normal 0.0-0.5 [facility] Comment on above: Performed By: #### C BC ####[facility] [address] [place], [place] [address]Dr. Moriah Schulz LYMPH # 3.3 103/ul Normal 1.2-3.8 [facility] Comment on above: Performed By: #### C BC ####[facility] [address] [place], [place] [address]Dr. Moriah Schulz Lymphocytes/100 WBC (Bld) 24.0 % Normal 20.5-60.0 [facility] Comment on above: Performed By: #### C BC ####[facility] [address] [place], [place] [address]Dr. Moriah Schulz MANUAL DIFF REQ NO Normal [facility] Comment on above: Performed By: #### C BC ####[facility] [address] [place], [place] [address]Dr. Moriah Schulz MCH (RBC) [Entitic mass] 28.6 pg Normal 26.7-34.0 [facility] Comment on above: Performed By: #### C BC ####[facility] [address] [place], [place] [address]Dr. Moriah Schulz MCHC (RBC) [Mass/Vol] 32.2 g/dL Normal 29.9-35.2 [facility] Comment on above: Performed By: #### C BC ####[facility] [address] [place] [id number]. Moriah Schulz MCV (RBC) [Entitic vol] 88.9 fL Normal 81.0-99.0 [facility] Comment on above: Performed By: #### C BC ####[facility] [address] [place] [id number]. Moriah Schulz MONO # 0.7 103/ul Normal 0.3-0.8 [facility] Comment on above: Performed By: #### C BC ####[facility] [address] [place] [phone]. Moriah Schulz Monocytes/100 WBC (Bld) 5.2 % Normal 1.7-12.0 [facility] Comment on above: Performed By: #### C BC ####[facility] [address] [place], [place] [address]Dr. Moriah Schulz NEUT # 9.1 103/ul Critically high 1.4-6.5 [facility] Comment on above: Performed By: #### C BC ####[facility] [address] [place], [place] [id number]. Moriah Schulz Neutrophils/100 WBC (Bld) 67.4 % Normal 43.0-75.0 [facility] Comment on above: Performed By: #### C BC ####[facility] [address] [place], [place] [id number]. Moriah Schulz Platelet mean volume (Bld) [Entitic vol] 8.4 fL Critically low 9.5-13.5 [facility] Comment on above: Performed By: #### C BC ####[facility] [address] [place] [phone]. Moriah Schulz PLT 358 103/ul Normal 150-450 [facility] Comment on above: Performed By: #### C BC ####[facility] [address] [place] [phone]. Moriah Schulz RBC 4.33 106/ul Normal 4.20-5.40 [facility] Comment on above: Performed By: #### C BC ####[facility] [address] [place], [place] [address]QxAdrienne Schulz WBC 13.6 103/ul Critically high 4.0-11.0 [facility] Comment on above: Performed By: #### C BC ####[facility] [address] [place], [place] [address]TsAdrienne Schulz [facility]16 SARS-CoV-2 (COVID-19) RNA TONY+probe Ql (Unsp spec) Not detected Normal NOT DETECTED The [facility] Comment on above: Result Comment: When diagnostic [...] for this test is supported by the [place] of Health and Human Service's declaration that [...] By: #### C VDTB #### [facility] [address] [place] [address] Dr. Moriah Schulz ER URINE PROFILEon 2 Bilirubin Ql (U) Negative Normal NEGATIVE [facility] Comment on above: Performed By: #### E CHIN RANKIN #### [facility] [address] [place] [address] Dr. Moriah Schulz Clarity (U) CLEAR Normal CLEAR [facility] Comment on above: Performed By: #### E CHIN RANKIN #### [facility] [address] [place] [address] Dr. Moriah Schulz Color (U) YELLOW Normal YELLOW The [facility] Comment on above: Performed By: #### E RUR, UMICRO #### [facility] [address] [place] [address] Dr. Moriah STAFFORD A micrscopic examina tion will be performed if indicated. Normal [facility] Comment on above: Performed By: #### RAMON ROGERRO #### [facility] [address] [place] [address] Dr. Moriah Schulz Glucose Ql (U) Negative Normal NEGATIVE The [facility] Comment on above: Performed By: #### Moshe RANKIN UMICRO #### [facility] [address] [place] [address] Dr. Moriah Schulz Hemoglobin Ql (U) SMALL Abnormal NEGATIVE The [facility] Comment on above: Performed By: #### Moshe RANKIN UMICRO #### [facility] [address] [place] [address] Dr. Moriah Schulz Ketones Ql (U) Negative Normal NEGATIVE The [facility] Comment on above: Performed By: #### Moshe RANKIN UMICRO #### [facility] [address] [place] [address] Dr. Moriah Schulz LEUKOCYTES Negative Normal NEGATIVE [facility] Comment on above: Performed By: #### RAMON ROGERRO #### [facility] [address] [place] [address] Dr. Moriah Schulz Nitrite Ql (U) Negative Normal NEGATIVE The [facility] Comment on above: Performed By: #### CHRISTIAN ROGERICRO #### [facility] [address] [place] [address] Dr. Moriah Schulz pH (U) 5.5 [pH] Normal 5-9 [facility] Comment on above: Performed By: #### RAMON ROGERRO #### [facility] [address] [place] [address] Dr. Moriah Schulz SPEC GRAVITY >=1.030 Abnormal 1.005-<=1.0 25 The [facility] Comment on above: Performed By: #### RAMON ROGERRO #### [facility] [address] [place] [address] Dr. Moriah Schulz UA PROTEIN Negative Normal NEGATIVE/ TRACE The [facility] Comment on above: Performed By: #### CHIN ROGER #### [facility] [address] [place] [address] Dr. Moriah Schulz UR MICRO IND INDICATED Normal [facility] Comment on above: Performed By: #### CHIN ROGER #### [facility] [address] [place] [address] Dr. Moriah Schulz Urobilinogen Qn (U) 0.2 {Hanny'U}/dL Normal 0.2 - 1. 0 [facility] Comment on above: Performed By: #### CHIN ROGER #### [facility] [address] [place] [address] Dr. Moriah Schulz INFLUENZA A AND B AGon 08-12 [facility] SEE BELOW Normal [facility] Comment on above: Result Comment: Nega tive for Flu A protein angiten. Infection due to Flu A cannot be ruled out. Flu A angiten in the sample may be below the detection limit of the test. Performed By: #### I NFLUAB #### [facility] [address] [place] [address] Dr. Moriah Schulz INFLUBNEGH SEE BELOW Normal [facility] Comment on above: Result Comment: Nega tive for Flu B protein antigen. Infection due to Flu B cannot be ruled out. Flu B antigen in the sample may be below the detection limit of the test. Performed By: #### I NFLUAB #### [facility] [address] [place] [address] Dr. Moriah Schulz INFLUENZA A AG Negative Normal NEGATIVE SEE COMMENT [facility] Comment on above: Performed By: #### I NFLUAB #### [facility] [address] [place] [address] Dr. Moriah Schulz INFLUENZA B AG Negative Normal NEGATIVE SEE COMMENT [facility] Comment on above: Performed By: #### I NFLUAB #### [facility] [address] [place] [address] Dr. Moriah Schulz INTERNAL CONTROLS Within Normal Limits Normal Wi thin Normal Limits [facility] Comment on above: Performed By: #### I NFLUAB #### [facility] [address] [place], [place] [address] Dr. Moriah Schulz PROF 14(COMP METB)on 022 Albumin [Mass/Vol] 3.5 g/dL Normal 3.4-5.0 [facility] Comment on above: Performed By: #### C MP ####[facility] [address] [place] [phone] Schulz Albumin/Globulin [Mass ratio] 1.0 {ratio} Normal [facility] Comment on above: Performed By: #### C MP ####[facility] [address] [place] [address]DrAdrienne Schulz ALP [Catalytic activity/Vol] 101 U/L Normal 46-116 [facility] Comment on above: Performed By: #### C MP ####[facility] [address] [place] [address]DrAdrienne Schulz ALT [Catalytic activity/Vol] 25 U/L Normal 14-59 [facility] Comment on above: Performed By: #### C MP ####[facility] [address] [place] [address]DrAdrienne Schulz Anion gap [Moles/Vol] 11.4 mmol/L Normal Th [facility] Comment on above: Performed By: #### C MP ####[facility] [address] [place] [address]DrAdrienne Schulz AST [Catalytic activity/Vol] 11 U/L Critically low 15-37 [facility] Comment on above: Performed By: #### C MP ####[facility] [address] [place] [phone] Schulz Bilirubin [Mass/Vol] 0.3 mg/dL Normal 0.2-1.0 [facility] Comment on above: Performed By: #### C MP ####[facility] [address] [place] [phone] Schulz Calcium [Mass/Vol] 8.9 mg/dL Normal 8.5-10.1 [facility] Comment on above: Performed By: #### C MP ####[facility] [address] [place] [address]Dr. Moriah Schulz Chloride [Moles/Vol] 105 mmol/L Normal 98-107 [facility] Comment on above: Performed By: #### C MP ####[facility] [address] [place] [address]Dr. Moriah Schulz CO2 [Moles/Vol] 27.3 mmol/L Normal 21.0-32.0 [facility] Comment on above: Performed By: #### C MP ####[facility] [address] [place], [place] [address]Dr. Moriah Schulz Creatinine [Mass/Vol] 0.91 mg/dL Normal 0.55-1.02 [facility] Comment on above: Performed By: #### C MP ####[facility] [address] [place], [place] [address]Dr. Moriah Schulz EGFR-AF TRISTANIAN >60 Normal >=60 [facility] Comment on above: Performed By: #### C MP ####[facility] Mnfitqcrlp[address] [place], [place] [address]Dr. Moriah Schulz EGFR-NON AF TRISTANIAN >60 Normal >=60 [facility] Comment on above: Performed By: #### C MP ####[facility] Gtowrtmnxn[address] [place], [place] [address]Dr. Moriah Schulz Globulin (S) [Mass/Vol] 3.5 g/dL Normal [facility] Comment on above: Performed By: #### C MP ####[facility] [address]ud[address] [place], [place] [address]Dr. Moriah Schulz Glucose [Mass/Vol] 104 mg/dL Normal 74-106 [facility] Comment on above: Performed By: #### C MP ####[facility] K[address] [place], [place] [address]Dr. Moriah Schulz Potassium [Moles/Vol] 3.7 mmol/L Normal 3.5-5.1 [facility] Comment on above: Performed By: #### C MP ####[facility] [address] [place] [address]Dr. Moriah Schulz Protein [Mass/Vol] 7.0 g/dL Normal 6.4-8.2 [facility] Comment on above: Performed By: #### C MP ####[facility] [address] [place] [address]Dr. Moriah Schulz Sodium [Moles/Vol] 140 mmol/L Normal 136-145 [facility] Comment on above: Performed By: #### C MP ####[facility] [address]ung[address] [place] [address]Dr. Moriah Schulz Urea nitrogen [Mass/Vol] 15.0 mg/dL Normal 7.0-18.0 [facility] Comment on above: Performed By: #### C MP ####[facility] Z[address]burde[address] [place] [address]Dr. Inatrang Schulz Urea nitrogen/Creatinine [Mass ratio] 16.5 mg/mg Normal [facility] Comment on above: Performed By: #### C MP ####[facility] N[address]tw[address] [place], [place] [address]Dr. Moriah Zeus URINE MICROSCOPIC ONLYon BACTERIA TRACE Abnormal NONE SEEN The [facility] Comment on above: Performed By: #### RAMON ROGERRO ####[facility] [address] [place] [address]Dr. Moriah Schulz Bacteria identified Cx Nom (U) NOT INDICATED Normal [facility] Comment on above: Performed By: #### RAMON ROGERRO ####[facility] Sl[address]adiscq[address] [place], [place] [address]Dr. Moriah Schulz CAST NONE SEEN Normal NONE SEEN The [facility] Comment on above: Performed By: #### RAMON ROGERRO ####[facility] B[address] [place], [place] [address]Dr. Moriah Schulz Crystals LM Nom (Urine sed) NONE SEEN Normal NONE SEEN The [facility] Comment on above: Performed By: #### RAMON ROGERRO ####[facility] [address] [place] [phone]. Moriah Schulz Epithelial cells LM Ql (Urine sed) MODERATE Abnormal NONE SEEN /RARE [facility] Comment on above: Performed By: #### CHIN ROGER ####[facility] [address] [place] [phone]. Moriah Schulz MUCOUS NONE SEEN Normal NONE SEEN The [facility] Comment on above: Performed By: #### CHIN ROGER ####[facility] [address] [place] [phone]. Moriah Schulz RBC 2-5 Abnormal 0-2 [facility] Comment on above: Performed By: #### CHIN ROGER ####[facility] [address]cp[address] [place] [address]Dr. Moriah Schulz WBC 2-5 Abnormal NONE SEEN The [facility] Comment on above: Performed By: #### CHIN ROGER ####[facility] [address]qs[address] [place] [phone]. Moriah Schulz XR CHEST 1 Von 08-12-2021 [...] Date: 2021-08-12 15:05 Normal [facility] Q - VARICELLA-ZOSTER AB (IGG )on 07-10-2021 VARICELLA ZOSTER VIRUS ANTIBODY (IGG) 1373.00 index Normal [facility]iac Cath Rn Comment on above: Order Comment: [facility] Testing performed at: QPT, [facility], [address] [place] [address], [address] [place] [address], [id number], [employer]: Cresencio Bella MD [facility] Collection Date/Time: [id number] [facility] Results Received Date/Time: [facility] Reported Date/Time: [...] 4 439 #### [facility] Default [address] [place] [address] Coding Summary.on 08-07-2020 Coding Summary. [id number] Gh0bWw +PGhlYWQ+OU2HKYDvG11qgWDsg L2TW2zDWT9BACRPHPFJPI8SOB4 lnGX8WFeuC0OgktAh SvxbcTOqBX83ESp1ZWZ2lEaoVS htjA5nsXHwR1e0TfIoYR09qG58 WRteNJPtUqO3IcLntbyzwHOu A9ttJsEbcBToBna+PHRhYmxlIH riRNExUZesVAOoNvCmaLchWU8c Xl3wANYxAIKnqUzhhCHwQtAt e8srBLOzKMgwZC7maXdoO8NjlI Z3HFLte2p2Gf09vCL+PHRkIHN0 mCmpYBeqh291FpQnb0pqTWT1 rDPvKMifOYJ6V02zh5Z2DCVaAS KvBYF1rKD2hK4btBwuylcuR0Gb yYYjKvH6IFV8wELdsL1abYsf tzeyiD8rEpf+O83DHF2RQHGBXZ 7DDqw3Z6LxVesnkRO+VZ17XLUj TN14sRCwwHOes6owkQo1YsWq KSElRTU4jPkzEAohk8NqNNYrC3 9tmINar5O2ARHpzJbwmQEzGpMa nPJ7qO7zVUitgwfco2exbodz Gyzeo1bcqb01sM44W07hORaiMV ToZTK8XFLfIQQmyRqpxk8rgN8i Ii8+JUrac7vuv3jowAz4MsNs LSYudxZkkIljYDU8p4FnHx54N1 RpfBkvq2HaTyv9xo48pDXrc3Y3 wUE2YZgqTRGrcN2pPNewMyG1 QBQcMfJknA38vHPoREysIz7mvY raoBvzWW6tWSIowyhlUROgwJ8s UHUemBCopGsxRT1bKXVnsdtc y215DqQrILI1EVOvaFLwX8HdpP 3gZzVcHDDlCCVhT8CctMSxAAjn K531AKsxLnR1QWAiudVaE5Lc UDNohXjyMuF0p0N0Dm3Hi3Dsqp clJHF4MMadIDX1LuG0DcQtQdI2 Z5LlYoh6EEHysHszCO2rS6Su PBUcvjguamkjiNA5YFHbNKEvtT 03mAYjQKgoAs4bm1J8x049KURy APZmzB27Nl9qdXjcKKBywVTZ tD6hsqlug1ogeyhpLuTnHUUmCT a0VCs9KWUpzJsgCwExXAL9QxK9 JTW9fRLosF8exMchprzatU8a Oyc+J49axU6jCFW6TRP3xhbtBF PxjhBnOK45XS73C3JvZkxdhCEk bGU+XRHiibQulXaxAD0mLxCu w2pgl3CcYWmvC7MxHEOcUFscJj r4RUUkEPQ0gPF7mF7aRPArBGqr m9A3uJF1M7VwsfOulv8yl1wa VCYwWJysV35auCIdz4J0GGTvcK F2NWFjwCsvIpIpiQ46Dyq+PGNv zLtjg0TwJzegh5flv7dysVp8 IiGjYOXhbzJdtLbwCXP5k1DlFl 65H37aRUudGACkKTLoGNLvDVEy kXlvog0hpJ2nNf0+PGNvbCB3 uWJ1cG7yBRDkZaR6NGanW876Bl EwlQRiRrhun5lyk4xfbEv7YwXv AWIsxeGjjHhvXDX7n9BsFt99 E99kENnsEQXaYYDdVKMzMNQggK spui8kaW2jDf8+PZ9nk0bzmd18 eY18pNA+KRPlAGO4cAjqCVer VNVynU0aWQjxFuW1DTFcEyKuxW 49kZReKZmpGc4acAcbaGknUD4r ORTkzvqtz815MwHjf6nlHFEr pHHsDRdcGCB0R41bu6O5NJMtWK DrEHB9xDZ0cD9uuOzszxsjlDJz aKuokePajVbdRDwySJxfH484 IHRvcDsnPlBhdGllbnQgTmFtZT o8G8WgGsu0BQUovGfaUJ8iwGUp LWeuBt8tdZzujHzvCQ5wENTe doqua561RzDnt5jeXZRxaSJgPI nnALQ2C15tn1M2BOQsLDCtEKD1 yXZ1eK8cxMqbnmvihSIetQsx xzIhnNlyCMapZNmoQ670EVGdvZ rrAlGhvyIbCSIjzAE9RN15EG69 yYTqf5K4cGB4V1WkKLGaeqbb bqouuVE4QOSkWIUutI89Fo7pkW myRy0vAHGtZMV0TAGnlUZxS3Lp rG6mRuHpVXCoPKJiA0QbjSFs XRezP281UZslBqV3ZRVucbZfC0 TmHVIjdDvbUeZ4s4I6Mf3UL3H4 HI20WY62lYJso0Z1rFM8G6Cm DLHgevcseemnaLP4JJQtCTXduK 81Zf2gwGejEh7dGOLnFDD5LDIw mRYbS0IxiO5bJgTkPAMrBXVc Z0QqrGXeVXnrI146GAybLeV2QR DxefBeQ6ZwSPWhjSccSgU7b7Y7 Ub0XVMe0UD15AW53dJYvw2M1 uXO0N0NoOWPncbriwdznpKN7IJ MbVLMcxA15Nn2jrTubAm5kLAKh IBO6NKTqgZMdG6DxhG4vEsCk KDWtKPNgS0GtcRZiHHtnX306TH dmCvQ3EENcvcAaU7KdEXKpzLby ZzB2k4Q5Lm8XVYOfNI29OAI4 kEO8UB84ET12A2IjRpgrkJJwxT U+PHRhYmxlIHdpZHRoPScxMDAl FaSlvUwzWY4tRv6sLVFsDJLd hFydlAGaNuQgg8avPEOkRKknCO 8rxAnyK4SlpLG2PBKip6e4Ks52 A85mP1VvwYH+WLFjkZF8iVU1 kB6uWfUdPnX3RAwvC121CmRvhZ CsGozoq4ghi2bljQo3YrZ3HPVo bhEebNjmHNH8u7IgWy24A20f IHdpZHRoPSIxNSUiIHZhbGlnbj 9goU5aXd7+SSZqpET3lUC6kC1m GdDiKaF8VUnqY011ZeVvhRId Ozcwd8thu8tmbBy9SkVkHPUuws RdzLriCRL0g4GgSm16Z6YmvRfz p4QoGgv6jf75vMTkd7W6gCU5 T6MtQXGoruabpEMzdQewGX4wBX EccwbuKAWyxR3qOXSdQ4y0JvBe XdZ0BCmjY8JwmpC3WXZugBOw KNcuFFF8L18gc8K8HDUtPQRmZJ Y8vNF0dN1tcXualngxhSVemCpi fnRpaHgeCRblQIuqE380RIYa rSoaUWQznG6uCERsyBDrfQjoPT 4aIBZiwzrePnEBBTalPJ3RDePW WSE6K4VtLqt2YBQiaQtkCS4z rLWqVMrbNk9lbHdxqKtxWH0oHZ CoqzsdTIRmzA3iTUMmcIWmcRav ZF3dLLGmqpwjh784XcSiFJQ7 NMUklGXsF8AmpL3dBkAwFCJbAK NgT3NxbXNdEYxwZ697LClmRhL8 OXYuilSuH0RfFTLbwDyiIlN8 a6I6Os7qPq3fAS2yXMcwOC92VZ 74xIBht0D7xQN5L0YxWMGhfwmo wnheoBW5AEDuCXErjF12uTNx PUcpAl6dw9Z0m742FGMcJAFouV 16Wn9soLjbMUGkoODMyW5rawhp c9lxegvhQyZoDFToUYa0GJi3 ESLunNfiHaHeCVS0EgL5BOF3kY HlmT3ysAnesuozcM9dBrv+Mzkg LYNhatP9I6VhJkp2RAAagOru TE0mqXAhDCfjKi1qxKslpChpYR 0iXPMdiihcRHRleX3aZMYbdDQb fLluMR0mWSMsetqul069ZnKv EWP2GYBpaTNwZ2WmcH7nIkBeIX JyIYRgO1SliOUvKRruB057OBku JfP6FWAinkUtU2RdWZGpoJii OpW5r5W4Tk8ZPT2bfBZ2D2LjIi q5SFMnvBuhCE5xcMGqFWuaTh7r iXlusXkqKD8qXBBkuwilLXHh zI4vIDBpvGOokMriTQ6lQBTdua vgm699XjQbILL3DHMamKDoE1Xr oX1dSnMuEIBtXGCuC6BstFBf BMznY231BIntWqE7BTSuriSpO5 FuOFMecWwuRrR0p3U3Gw8WvQGh J9CjF1o7N0ZnPfkicMO+PC90 QFKdXD77yTBuhMIun4ryjXc8Rj MvYRPhZPQ8hLjiPSrox7UqOBLw J49dzQPvl4Y3XADgzDrgdJRl GcDeyJR0lF1yHKtgocmex6hezd vsCdlhk4vsvt80bX90P81jSZow QHXqUUOiQRVjBITtqApszd1u eS9pEv4+QNHgzEN8uHH8oZ7fQf IbOsW0QDafU124FnUpdAUfRfmt l3yxu7zajBe4ZeWqMAMsppLu cUkrUNV5k4MjEi26K19uTXzcEY BlHCTvCMStWOIxsPlcdo9fzE6b Ii8+OL2mb0mnay31nZ87kBT+ NHNqJRW1gUmoBMzzSZTqcD7wRK cqNaO1KZPfNdGefV50zQQkXWme Ml7nmIhuuHboEC6aWZTvntpo t599WwZqw0woPMJkaCLvFAugAQ G7D97dd5L6AAUlAIYuICW5tVJ3 zA0srHwlyynarGGflLqfzpTq dQfeYJseOEmvR185XQOqtFjrQb LjlOHiD8pvpoRMKA2yBlmjeIM+ QYGgOYZ0tZvkCPbuNHUpbV2t NVSdC4v1QwDzZzR3SIpsT7Qqpu Z9ACWzcROvOFIocLSSvK5wxwob t8kicuykSlKpHZWoNJw0HVg1 VKZnpCfaKfXuRSE6JuC9TET9rL WvxY8biRvynfsobT5cMnf+RklO OjwvdGQ+UFPhUXT6xXebTWqo MYEshK6bEVEdZ7q4TuFkWqH9ZO jgK0GanyI2EEFgnXHpCHVipCVV lF0frwbdj9uqzwooBqLsKORj MHr2JEk0MJCeqDwcPjLmUKA0Jw C2GCY5jNAglL6luBjpylajuL9n Oyc+TVJOOjwvdGQ+PHRkIHN0 gQakDSwyTFUvcB9hWIYfX0j3Pf BrAdR2WKbfO0MtswW6KRHygOUa JGUhoQTDbR8olywmy3bfjmly SrRtJFPsPAv0YYr9HYVsjZsjXy XpNSV4ZmA7SHQ0rYLnqS6vbCtf xwpqqH8qIon+TDX7OCZ1BY13 DF40P5DoQmsegOClkDV+PHRhYm xlIHdpZHRoPScxMDAlJyBzdHls EN2zKd7nBHMeSRRgyHvggJCi OiBj (more content not included)... Normal [facility] Auto Diffon 07-28-2020 Basophils/100 WBC (Bld) 0.5 % Normal 0.0-2.0 [facility] Comment on above: Order Comment: Order Added by Discern Expert. Performed By: #### 1 [id number], 33770352, 6167332, 8818910, 6435973, 4408764, 45992030 #### [facility] Laboratory [address] [place] [address] Basophils/Leukocytes Auto (Bld) [Pure # fraction] 0.1 E9/L Normal 0.0-0.2 [facility] Comment on above: Order Comment: Order Added by Discern Expert. Performed By: #### 1 5594705, 22527663, 7964199, 9024843, 8186331, 1630374, 80223888 #### [facility] Laboratory [address] [place] [address] Eosinophils/100 WBC (Bld) 0.1 % Normal 0.0-8.0 [facility] Comment on above: Order Comment: Order Added by Discern Expert. Performed By: #### 1 0264276, 31001594, 1971592, 4842636, 5977616, 0595318, 55786686 #### [facility] Laboratory [address] [place] [address] Eosinophils/Leukocytes Auto (Bld) [Pure # fraction] 0.0 E9/L Normal 0.0-0.5 [facility] Comment on above: Order Comment: Order Added by Discern Expert. Performed By: #### 1 4230475, 61856479, 8462890, 1179156, 9013635, 3619216, 72352150 #### [facility] [address] [place] [address] Lymphocytes/100 WBC (Bld) 13.7 % Low 14.0-50.0 [facility] Comment on above: Order Comment: Order Added by Discern Expert. Performed By: #### 1 9616533, 96588073, 5035229, 2686189, 8289737, 4186814, 60398509 #### [facility] [address] [place] [address] Lymphocytes/Leukocytes Auto (Bld) [Pure # fraction] 1.5 E9/L Normal 1.0-4.0 [facility] Comment on above: Order Comment: Order Added by Discern Expert. Performed By: #### 1 0296741, 08231620, 7407741, 2590988, 3329761, 0698943, 05634583 #### [facility] [address] [place] [address] Monocytes/100 WBC (Bld) 2.3 % Low 4.0-14.0 [facility] Comment on above: Order Comment: Order Added by Emerson Expert. Performed By: #### 1 9513004, 18950140, 4877042, 2960722, 1591544, 0827775, 26084200 #### [facility] Laboratory [address] [place] [address] Monocytes/Leukocytes Auto (Bld) [Pure # fraction] 0.2 E9/L Normal 0.2-1.0 [facility] Comment on above: Order Comment: Order Added by Discern Expert. Performed By: #### 1 7477241, 19499633, 3597381, 3914129, 5296761, 2739888, 54273477 #### [facility] [address] [place] [address] Neutrophils/100 WBC (Bld) 83.4 % High 36.0-75.0 [facility] Comment on above: Order Comment: Order Added by Discern Expert. Performed By: #### 1 1137844, 47490735, 3985687, 7610992, 2828477, 2536730, 80274465 #### [facility] [address] [place] [address] Neutrophils/Leukocytes Auto (Bld) [Pure # fraction] 8.8 E9/L High 2.0-7.5 [facility] Comment on above: Order Comment: Order Added by Discern Expert. Performed By: #### 1 4931216, 75870069, 7905311, 0655841, 0097773, 4721419, 98686556 #### [facility] [address] [place] [address] BMPon 07-28-2020 Creatinine [Mass/Vol] 1.0 mg/dL Normal 0.5-1.3 [facility] Comment on above: Performed By: #### 1 2710366, 31317157, 6055944, 0013592, 8337278, 3370535, 78375460 #### [facility] [address] [place] [address] Urea nitrogen [Mass/Vol] 13 mg/dL Normal 5-21 [facility] Comment on above: Performed By: #### 1 8640495, 44944080, 3054691, 8709206, 2752329, 5731441, 88974970 #### [facility] [address] [place] [address] Urea nitrogen/Creatinine [Mass ratio] 13 No Units Normal 10-20 [facility] Comment on above: Performed By: #### 1 9690664, 24457311, 7040883, 3001067, 2499638, 7952429, 32559023 #### [facility] [address] [place] [address] Anion gap [Moles/Vol] 15 mmol/L Normal 6-16 [facility] Comment on above: Performed By: #### 1 4390891, 29171825, 3622048, 7860146, 1535207, 0618760, 37396561 #### [facility] [address] [place] [address] Calcium [Mass/Vol] 7.9 mg/dL Low 8.9-11.1 [facility] Comment on above: Performed By: #### 1 4659338, 96507815, 6757592, 0397844, 4752015, 5279913, 63389700 #### [facility] [address] [place] [address] Chloride [Moles/Vol] 98 mmol/L Low 101-111 [facility] Comment on above: Performed By: #### 1 9976599, 95397389, 6204070, 4672456, 4438468, 6780768, 65299000 #### [facility] [address] [place] [address] CO2 [Moles/Vol] 25 mmol/L Normal 21-31 [facility] Comment on above: Performed By: #### 1 9130667, 12785810, 3314429, 2012888, 7881717, 0611619, 27191167 #### [facility] [address] [place] [address] Glucose [Mass/Vol] 104 mg/dL Normal 55-199 [facility] Comment on above: Result Comment: If t his glucose result represents a fasting glucose, interpretation should refer to the following reference range: 55-99 mg/dL Performed By: #### 1 2183252, 12007128, 4273351, 4234571, 5864674, 4435160, 40717780 #### [facility] [address] [place] [address] Potassium [Moles/Vol] 2.9 mmol/L Low 3.5-5.3 [facility] Comment on above: Performed By: #### 1 7758209, 93725384, 5086469, 0693808, 4821752, 7049642, 89292265 #### [facility] [address] [place] [address] Sodium [Moles/Vol] 135 mmol/L Normal 135-145 [facility] Comment on above: Performed By: #### 1 8326245, 29295413, 0653608, 9630629, 9204978, 7081708, 03357040 #### [facility] Laboratory [address] [place], [place] [address] CBC w/ Auto Diffon Erythrocyte distribution width (RBC) [Ratio] 15.2 % High 10.9-14.2 [facility] Comment on above: Performed By: #### 1 9951091, 96224583, 8182271, 5940366, 2550671, 2224007, 38466978 #### [facility] [address] [place] [address] Hematocrit (Bld) [Volume fraction] 36.7 % Normal 34.0-46.0 [facility] Comment on above: Performed By: #### 1 9998798, 86431937, 4290726, 7973741, 1143213, 4358334, 36242988 #### [facility] [address] [place] [address] Hemoglobin (Bld) [Mass/Vol] 12.3 g/dL Normal 12.0-16.0 [facility] Comment on above: Performed By: #### 1 4483316, 82596696, 8553244, 2176660, 1527922, 0702083, 04598709 #### [facility] [address] [place] [address] MCH (RBC) [Entitic mass] 28.1 pg Normal 27.0-34.0 [facility] Comment on above: Performed By: #### 1 4584966, 72800395, 6865539, 4128673, 9598650, 1599753, 13762828 #### [facility] [address] [place] [address] MCHC (RBC) [Mass/Vol] 33.4 g/dL Normal 31.4-36.0 [facility] Comment on above: Performed By: #### 1 6953978, 62829206, 3917634, 1694428, 3035999, 8743802, 98108703 #### [facility] [address] [place] [id number] MCV (RBC) [Entitic vol] 84.1 fL Normal 80.0-100.0 [facility] Comment on above: Performed By: #### 1 7336400, 68836654, 4248502, 7100618, 7675420, 4901744, 33628691 #### [facility] [address] [place] [address] Platelet mean volume (Bld) [Entitic vol] 6.6 fL Normal 6.4-10.8 [facility] Comment on above: Performed By: #### 1 0657235, 22535366, 8581228, 7602486, 8708525, 5557662, 84872651 #### [facility] [address] [place] [address] Platelets (Bld) [#/Vol] 203.0 E9/L Normal 150.0-500.0 [facility] Comment on above: Result Comment: Plat elet count verified using smear estimate Slide reviewed by [email or web address]. Performed By: #### 1 1657222, 55310909, 0150145, 5967866, 3093350, 5076499, 04308723 #### [facility] [address] [place] [address] RBC (Bld) [#/Vol] 4.4 E12/L Normal 4.3-5.9 [facility] Comment on above: Performed By: #### 1 7707118, 32634557, 0343039, 1091539, 7543947, 1833309, 97244457 #### [facility] [address] [place] [address] WBC corrected for nucl RBC Auto (Bld) [#/Vol] 10.6 E9/L Normal 4.0-11.0 [facility] Comment on above: Performed By: #### 1 6771804, 28428179, 1150004, 0790839, 4190171, 0944171, 93714132 #### [facility] [address] [place] [address] CTA Cheston 07-28-2020 CTA Chest Exam Date/Time: [...] 370 Contrast amount in ml's: 75 Normal [facility] D-Dimeron 07-28-2020 Fibrin D-dimer FEU (PPP) [Mass/Vol] 1122 ng/mL Abnormal 215-500 [facility] Comment on above: Result Comment: Resu lts [...] infections Liver cirrhosis Performed By: #### 1 9136314, 52909146, 5186844, 8885229, 7279330, 7684648, 99877443 #### [facility] Laboratory [address] [place] [address] Discharge Instructionson Discharge Instructions [id number] Normal [facility] ED Clinical Summaryon 2020 ED Clinical Summary (Inserted Image. Alaina ble to display) [place] [id number] ED Clinical Summary Person Information Name: DELICIA [...] 07/28/2020 02:18:35 07/28/2020 02:18:35 07/28/2020 02:18:35 ADDRESS: [address] [place] [id number] [facility] DOC NOTES: MEDICAL INFORMATION: Prescriptions Given: PATIENT EDUCATION INFORMATION: Instructions: COVID-19 Frequently Asked Questions Follow up: With: Address: When: CORRINE ORDAZ [address] [place] [address] [phone] Business (1) In 3 days 07/31/2020 Comments: Call your doctor Thursday to schedule for monoclonal atibodies. return if breathing worsens as discussed. monitor your oxygen level at home as discussed DIAGNOSIS: 1:Upper respiratory infection; 2:Pneumonia due to COVID-19 virus Normal [facility] ED Note-Physicianon 07-29-19 ED Note-Physician Basic Information [...] Lymph Auto: 13.7 % Low (07/27/20 22:10:00) [place] Auto: 2.3 % Low (07/27/20 22:10:00) Eos Auto: 0.1 % (07/27/20 22:10:00) Basophil Auto: 0.5 % (07/27/20 22:10:00) Neutro Absolute: 8.8 E9/L High (07/27/20 22:10:00) Lymph Absolute: 1.5 E9/L (07/27/20 22:10:00) [place] Absolute: 0.2 E9/L (07/27/20 22:10:00) Eos Absolute: [...] Summary (Inserted Image. Alaina ble to display) [address] [address] Patient Discharge Instructions Person Information Name: DELICIA SERRANO Age: 40 Years Arrival Date: 07/27/2020 21:19:07 Discharge Diagnosis: 1:Upper respiratory infection; 2:Pneumonia due to COVID-19 virus Primary Care Physician: CORRINE ORDAZ MD Provider Information Primary Provider: Felipe Baez MD Advanced Mail Opener:None The exam and treatment you received in the Emergency Department were for an urgent problem and are not intended as complete care. It is important that you follow up with a doctor, nurse practitioner, or physician?s unit assistant for ongoing care. If your symptoms become worse or you do not improve as expected and you are unable to reach your usual health care provider, you should return to the Emergency Department. We are available 24 hours a day. DELICIA SERRANO has been given the following list of patient education materials, prescriptions and follow-up instructions: Follow-up Instructions: With: Address: When: CORRINE ORDAZ [address] [place] [address] [phone] Business (1) In 3 days 07/31/2020 Comments: [...] opioids can be used to help relieve fwupdlgn-ym-ifrbcy pain and are often prescribed following a [...] of opioids (more content not included)... Normal [facility] PT & PTTon 07-28-2020 aPTT Coag (PPP) [Time] 21.2 second(s) Low 25.1-36.5 [facility] Comment on above: Result Comment: Hepa rin therapeutic range (represented by Anti-Factor Xa activity of 0.2 - 0.4 U/mL) corresponds to PTT of 56.6 - 109.0 sec. Performed By: #### 1 [id number], [id number], [id number], [id number], [id number], [id number] #### [facility] [address] [place] [address] INR Coag (PPP) [Relative time] 1.2 {INR} Invalid Interpretation Code [facility] Comment on above: Result Comment: INR results are specifically intended to assess patients stabilized on long-term Anticoagulation therapy suggested INR?s ?Less Intensive Anticoagulation? 2.0 ? 3.0 Conventional Range 3.0 ? 4.5 Performed By: #### 1 [id number], [id number], [id number], [id number], [id number], [id number] #### [facility] [address] [place] [address] PT Coag (PPP) [Time] 13.7 second(s) High 10.2-12.9 [facility] Comment on above: Performed By: #### 1 [id number], [id number], [id number], [id number], [id number], [id number], [id number] #### [facility] [address] [place] [address] RAD - Preliminary Cat Scan R eporton 07-28-2020 RAD - Preliminary Cat Scan Report [id number] Normal [facility] Rapid COVID Antigen ([facility])on 07-28-2020 Rapid COV Int NEG Ctl Pass Normal Fis her [facility] Comment on above: Performed By: #### 2 [id number] #### [facility] [address] [place] [address] Rapid COV Int POS Ctl Pass Normal Fis her [facility] Comment on above: Performed By: #### 2 [id number] #### [facility] [address] [place] [address] SARS-CoV-2 (COVID-19) RNA TONY+probe Ql (Unsp spec) Detected Abnormal Not Detected [facility] Comment on above: Result Comment: Resu lts Called To [employer] By [id number] And Read Back For Confirmation On 07/27/2020 22:20:45 EDT. Results faxed to [facility]. The VISUAL NACERTitor? System for Rapid Detection of SARS-CoV-2 is [...] or revoked sooner. Performed By: #### 2 [id number] #### [facility] [address] [place] [address] Troponin 0 Hr.on 07-28-2020 Troponin I.cardiac [Mass/Vol] 3.50 pg/mL Low 10.10-27.10 [facility] Comment on above: Result Comment: The 95% CI (Confidence Interval) PPV (Positive Predictive Value) for myocardial infarction in females is 38 pg/mL, in males 51 pg/mL. The results should be used in conjunction with clinical conditions of myocardial infarction. (Access High Sensitivity Troponin I Instructions For Use, Iftikhar Soocial, October 2017) Performed By: #### 1 [id number], [id number], [id number] #### [facility] [address] [place] [address] XR Chest Single Viewon 07-28 XR Chest [...] MD Transcribed by: KATHY Technologist: STARLA Thompson [facility] eGFRon 07-28-2020 GFR/1.73 sq M.predicted among blacks MDRD (S/P/Bld) [Vol rate/Area] mL/min/{1.73_m2} Normal >=59 [facility] Comment on above: Order Comment: Order added by Discern Expert. Result Comment: eGFR is race adjusted. AA=. Performed By: #### 1 [id number], [id number] #### [facility] [address] [place] [address] GFR/1.73 sq M.predicted among non-blacks MDRD (S/P/Bld) [Vol rate/Area] mL/min/{1.73_m2} Normal >=59 [facility] Comment on above: Order Comment: Order added by Discern Expert. Result Comment: Motorcycle Designer cassie kidney disease could be indicated at eGFR's of less than 60 mL/min/1.73m2. Kidney failure is indicated at less than 15 mL/min/1.73m2. Performed By: #### 1 [id number], [id number] #### [facility] [address] [place] [address] Consent for Treatmenton 07-14 Consent for Treatment [id number]:127 Normal [facility] Physician Orderon 07-27-2020 Physician Order [id number]:127 Normal [facility] Rapid COVID Antigen ([facility])on 07-27-2020 Employed in Healthcare NO Normal [facility] Comment on above: Performed By: #### 2 [id number] #### [facility] [address] [place] [address] First Test Unknown [facility] Comment on above: Performed By: #### 2 [id number] #### [facility] [address] [place] [address] Hospitalized? NO Normal [facility] Comment on above: Performed By: #### 2 [id number] #### [facility] [address] [place] [address] ICU NO Normal [facility] Comment on above: Performed By: #### 2 [id number] #### [facility] [address] [place] [address] ? Unknown Normal [facility] Comment on above: Performed By: #### 2 [id number] #### [facility] [address] [place] [address] Resides in a [facility] Care Setting NO Normal [facility] Comment on above: Performed By: #### 2 [id number] #### [facility] [address] [place] [address] Symptomatic as defined by CDC YES Normal [facility] Comment on above: Performed By: #### 2 [id number] #### [facility] [address] [place] [address] Vital Signs Date Time Vital Sign Value Performing Clinician Vanessa garcia 03-26-2023 10:10-0500 Diastolic blood pressure 70 mm[Hg] MD Boyd Herrera Work Phone: [facility] 03-26-2023 10:10-0500 Heart rate 71 /min MD Boyd Herrera Work Phone: [facility] 03-26-2023 10:10-0500 Respiratory rate 16 /min MD Boyd Herrera Work Phone: [facility] 03-26-2023 10:10-0500 SaO2% (BldA) [Mass fraction] 96 % MD Boyd Herrera Work Phone: [facility] 03-26-2023 10:10-0500 Systolic blood pressure 118 mm[Hg] MD Boyd Herrera Work Phone: [facility] 03-26-2023 08:30-0500 Body height 157.48 cm MD Boyd Herrera Work Phone: [facility] 03-26-2023 08:30-0500 Body weight 99.79 kg MD Boyd Herrera Work Phone: [facility] 02-20-2023 10:30-0500 Body weight 105.23 kg MD Boyd Herrera Work Phone: [facility] 02-20-2023 10:30-0500 Diastolic blood pressure 81 mm[Hg] MD Boyd Herrera Work Phone: [facility] 02-20-2023 10:30-0500 Respiratory rate 16 /min MD Boyd Herrera Work Phone: [facility] 02-20-2023 10:30-0500 SaO2% (BldA) [Mass fraction] 98 % MD Boyd Herrera Work Phone: [facility] 02-20-2023 10:30-0500 Systolic blood pressure 126 mm[Hg] MD Boyd Herrera Work Phone: [facility] 11-20-2022 10:35-0400 Body temperature 97.8 [degF] MD Boyd Herrera Work Phone: [facility] 11-20-2022 10:35-0400 Body weight 107.5 kg MD Boyd Herrera Work Phone: [facility] 11-20-2022 10:35-0400 Diastolic blood pressure 74 mm[Hg] MD Boyd Herrera Work Phone: [facility] 11-20-2022 10:35-0400 Heart rate 84 /min MD Boyd Herrera Work Phone: [facility] 11-20-2022 10:35-0400 Respiratory rate 16 /min MD Boyd Herrera Work Phone: [facility] 11-20-2022 10:35-0400 SaO2% (BldA) [Mass fraction] 98 % MD Boyd Herrera Work Phone: [facility] 11-20-2022 10:35-0400 Systolic blood pressure 106 mm[Hg] MD Boyd Herrera Work Phone: [facility] 11-04-2022 13:50-0400 Body temperature 97.8 [degF] MD Boyd Herrera Work Phone: [facility] 11-04-2022 13:50-0400 Body weight 109.31 kg MD Boyd Herrera Work Phone: [facility] 11-04-2022 13:50-0400 Diastolic blood pressure 75 mm[Hg] MD Boyd Herrera Work Phone: [facility] 11-04-2022 13:50-0400 Heart rate 104 /min MD Boyd Herrera Work Phone: [facility] 11-04-2022 13:50-0400 Respiratory rate 16 /min MD Boyd Herrera Work Phone: [facility] 11-04-2022 13:50-0400 SaO2% (BldA) [Mass fraction] 98 % MD Boyd Herrera Work Phone: [facility] 11-04-2022 13:50-0400 Systolic blood pressure 112 mm[Hg] MD Boyd Herrera Work Phone: [facility] 11-04-2022 13:30-0400 Body height 157.48 cm MD Boyd Herrera Work Phone: [facility] Encounters Encounter Date Encounter Type Care Provider Facility Start: 09-21-2023 ambulatory CHRISTIANNE DA SILVA [facility] Start: 09-21-2023 End: 09-21-20[facility] Start: 08-11-2023 End: 08-11-2023 ambulatory DISHA DILLARD Not Available Start: 08-06-2023 End: 08-06-[facility]: 07-09-2023 ambulatory ESTRELLITA DE PAZ [facility] Start: 06-30-2023 ambulatory CHRISTIANNE DA SILVA [facility] Start: 06-30-2023 End: 06-30-2023 ambulatory [facility]STIANNE [facility] Start: 06-09-2023 End: 06-09-2023 ambulatory [facility] Start: 06-02-2023 End: 06-[facility] Start: 06-02-2023 End: 06-02-[address] [facility] Start: 05-19-2023 End: 05-19-2023 ambulatory [facility] Start: 04-21-2023 ambulatory CHRISTIANNE [facility] Start: 04-21-2023 End: 04-21-2023 ambulatory [facility] Start: 03-26-2023 End: 03-26-2023 ambulatory Disha Dillard Facility:[facility] Start: 03-26-2023 End: 03-26-2023 ambulatory MD Boyd Herrera Work Phone: [facility] Work Phone: Start: 03-26-2023 End: 03-26-2023 Patient encounter procedure MD Boyd Herrera Work Phone: [facility] Work Phone: Start: 03-24-[address] [facility] Start: 03-23-2023 End: 03-23-2023 ambulatory [facility]RISTIANNE [facility] Start: 02-27-2023 End: 02-27-[address] [facility] Start: 02-20-2023 ambulatory Huey Sims Facilit y:[facility] Start: 02-20-2023 End: 02-20-2023 ambulatory MD Boyd Herrera Work Phone: [facility] Work Phone: Start: 02-20-2023 End: 02-20-2023 Registered Recurring MD Boyd Herrera Work Phone: [facility] Work Phone: Start: 02-12-2023 End: 02-12-2023 ambulatory [facility] Start: 02-11-2023 End: 02-11-2023 ambulatory Boyd Herrera Facility:[facility] Start: 02-11-2023 Registered Recurring MD Max Herrera Work Phone: [facility] Work Phone: Start: 02-11-2023 End: 02-11-2023 ambulatory MD Boyd Herrera Work Phone: [facility] Work Phone: Start: 02-11-2023 End: 02-11-2023 Patient encounter procedure MD Boyd Herrera Work Phone: [facility] [place] Work Phone: Start: 02-02-2023 End: 02-02-[address] [facility] Start: 01-08-[address] [facility] Start: 12-22-2022 End: 12-22-[address] [facility] Start: 12-22-2022 End: 12-22-[address] [facility] Start: 12-04-2022 End: 12-04-2022 ambulatory [facility] Start: 11-27-2022 End: 11-27-2022 ambulatory Disha Dillard Facility:[facility] Start: 11-27-2022 End: 11-27-2022 ambulatory MD Boyd Herrera Work Phone: [facility] Work Phone: Start: 11-27-2022 End: 11-27-2022 Patient encounter procedure MD Boyd Herrera Work Phone: [facility] [place] Work Phone: Start: 11-20-2022 ambulatory MD Boyd cesar Work Phone: [facility] Work Phone: Start: 11-20-2022 Registered Recurring MD [facility] Start: 11-18-2022 End: 11-18-[address] [facility] Start: 11-18-2022 End: 11-18-[address] [facility] Start: 11-04-2022 End: 11-04-2022 ambulatory MD Boyd Herrera Work Phone: [facility] Work Phone: Start: 11-04-2022 End: 11-04-2022 Registered Recurring MD Boyd Her[facility] [place] Work [facility]: Start: 07-31-2022 ambulatory JENNY REIS Facility: [facility] Start: 06-28-2022 End: 06-29-2022 ambulatory JENNY REIS Facility:[facility] Start: 05-08-2022 ambulatory JENNY REIS Facility: [facility] Start: 12-12-2021 ambulatory JENNY REIS Facility: [facility] Start: 11-21-2021 End: 11-21-2021 Patient encounter procedure MD Boyd Herrera Work Phone: [facility] [place] Start: 08-12-2021 End: 08-12-2021 ambulatory JACEK BRIZUELA [...] Author Start: 03-26-2023 Aerobic Culture Aerobic Culture [facility] Start: 03-26-2023 Anaerobic Culture Anaerobic Culture [facility] Start: 03-26-2023 Microscopic observation [Identifier] in Unspecified specimen by Gram stain [facility] Start: 03-26-2023 [facility] Start: 03-26-2023 End: 03-26-2023 [facility] Start: 03-26-2023 Cerebrospinal fluid culture [facility] Start: 02-11-2023 End: 02-11-2023 [facility] Start: 11-21-2021 [facility] Work Phone: Albumin [Mass/volume ] in Cerebral spinal fluid [facility] Albumin [Mass/volume ] in Serum or Plasma [facility] Albumin [Mass/volume ] in Serum or Plasma [facility] Albumin/Globulin ratio [facility] Bacteria identified in Unspecified specimen by Aerobe culture [facility] Bacteria identified in Unspecified specimen by Anaerobe culture [facility] Cell count, cerebros yo fluid [facility] Cerebrospinal fluid examination [facility] Cerebrospinal fluid IgG ratio and IgG index [facility] Comprehensive metabo lic 1999 panel - Serum or Plasma [facility] Comprehensive metabo lic 1999 panel - Serum or Plasma [facility] Comprehensive metabo lic 1999 panel - Serum or Plasma [facility] Copper measurement [facility] CT Abdomen and Pelvi s W contrast IV [facility] CT Chest W contrast IV [facility] Electrophoresis: [id number] [facility] Electrophoresis: [id number] [facility] Electrophoresis: beta-globulin [facility] Electrophoresis: adonay ma globulin [facility] Evaluation of cerebr ospinal fluid [facility] Fluid sample volume measurement [facility] Globulin [Mass/volum e] in Serum [facility] Glucose measurement estimated from glycated hemoglobin [facility] IgA [Mass/volume] in Serum or Plasma [facility] IgG [Mass/volume] in Cerebral spinal fluid [facility] IgG [Mass/volume] in Serum or Plasma [facility] IgG [Mass/volume] in Serum or Plasma [facility] IgG clearance/Albumi n clearance [Ratio] in Serum and CSF [facility] IgG synthesis rate [Mass/time] in Serum and CSF by calculation [facility] IgM [Mass/volume] in Serum or Plasma [facility] Insulin [Units/volum e] in Serum or Plasma [facility] Work Phone: Emma light chains.f ree [Mass/volume] in Serum [facility] Emma light chains.free/Lambda light chains.free [Mass Ratio] in Serum [facility] Lambda light chains. free [Mass/volume] in Serum or Plasma [facility] Patient Education [facility] Lum ar Puncture Discharge Instructions [facility] Work Phone: Protein [Mass/volume ] in Serum or Plasma [facility] Protein fractions.oligoclonal bands.intrathecal [Presence] in Serum and CSF [facility] Rheumatoid factor [Units/volume] in Serum or Plasma [facility] Work Phone: Serum immunofixation [facility] Thyrotropin [Units/v olume] in Serum or Plasma [facility] Work Phone: Thyroxine (T4) free index in Serum or Plasma by calculation [facility] Work Phone: Thyroxine measurement [facility] Work Phone: Triiodothyronine (T3 ) [Mass/volume] in Serum or Plasma [facility] Work Phone: Triiodothyronine res in uptake (T3RU) in Serum or Plasma [facility] Work Phone: [facility] Payers Date Payer Category Payer Unknown [id number] 1980 Unknown [id number] 1981 Unknown [id number] 1981 Unknown [id number] 593 1981 Unknown [id number] 593 1981 Unknown [id number] [id number] 1959 Self-pay [id number] 1958 Unknown [id number] Private Health Insurance [facility] [id number] Private Health Insurance [facility] [id number] Unknown Insurance No Card [id number] Unknown [id number] Unknown [id number] Unknown [id number] Unknown [id number] Social History Date Type Detail Facility Tobacco smoking stat us INIS Unknown if ever smoked [facility] Work Phone: Start: 1980 Sex Assigned At Female F [facility] Start: 11-04-2022 End: 02-20-2023 Tobacco smoking status NHIS Never smoked tobacco (finding) [facility] Clinical Notes 07-28-2020 to 09-21-2023 Note Date [...] bus when she wakes up in the [place]. She reports pain and stiffness in all [...] limited to inc (more content not included)... [facility] 07-09-2023 [place] [address] Referral Source: No ref. provider found 07/09/23 [...] state, incidental Lumbar radiculopathy Seronegative arthritis Other correction (current) drug therapy Spondylosis without myelopathy or [...] Negro Hyperlipidemia Father Negro Arthritis Maternal Grandfather [place] Cancer Maternal Grandfather Dominick Diabetes Maternal Grandfather [place] Stroke Maternal Grandfather Dominick Arthritis Maternal [...] deformities, skin discol (more content not included)... [facility] 07-09-2023 [place] [address] Referral Source: No ref. provider found 07/09/23 [...] state, incidental Lumbar radiculopathy Seronegative arthritis Other correction (current) drug therapy Spondylosis without myelopathy or [...] Cancer Maternal Grandfather Dominick Diabetes Maternal Grandfather [place] Stroke Maternal Grandfather [place] Arthritis Maternal Grandmother Raydene Cancer Maternal [...] deformities, skin discol (more content not included)... [facility] 06-30-2023 Note ------ Attestation signed by Christianne [...] weekly -- obta (more content not included)... [facility] 06-02-2023 Note Subjective Patient ID: Delicia Serrano [...] Scheduling Instructions: The phone number to contact [facility] Radiology is Once you have [...] Negative mg/dL Bilirubin, Urine Negative Negative Specific [place], Urine 1.027 (H) 1.015 - 1.020 Ketones, [...] 11 7 - (more content not included)... [facility] 06-02-2023 Note Subjective Patient ID: Delicia Serrano [...] Scheduling Instructions: The phone number to contact [facility] Radiology is Once you have been placed into the phone tree, it will prompt with the following options. 1 - CT scheduling 2 - MRI scheduling 3 - Ultrasound scheduling 4 - X-ray, Nuclear Medicine, Mammograms scheduling 5 - Reports/Image requests or general questions Order Specific Question: Is the patient ? An (more content not included)... [facility] 04-21-2023 Note Interventional Pain Management Nursing Note / Nurse Post-Call Note S/p ИВАН MBB L4/5 L5/S1 #1 Post call VM left to call department with results of procedure. [facility] 03-24-2023 Note Pain Medicine Medical [address] [address] Date: 03/24/23 Referral Source: No ref. 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 - Comprehensive metabolic panel; Future - CBC and differential; Future Diagnosis Plan 1. Other correction (current) drug therapy Comprehensive metabolic panel CBC [...] up in about 3 months (around 06/22/2023). 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 Seronegative arthritis methotrexate 2.5 mg tablet folic acid (Folvite) 1 mg tablet predniSONE (Deltasone) 5 mg tablet 2. Lumbar radiculopathy MR lumbar spine w and wo contrast 3. Dysuria Urinalysis Urinalysis Urinalysis microscopic 4. 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 Fibromyalgia Orders Placed This Encounter Procedures MR lumbar spine w and wo contrast Standing Status: Future Standing Expiration Date: 02/03/2024 Scheduling Instructions: The phone number to contact [facility] Radiology is Once you have [...] Negative mg/dL Bilirubin, Urine Negative Negative Specific [place], Urine 1.027 (H) 1.015 - 1.020 Ketones, Urine Trace (A) Negative mg/dL (more content not included)... [facility] 01-08-2023 Note ------ Attestation signed by Carlos [...] in Pain Clinic ------ Pain Medicine Medical [address] [address] Date:01/08/23 Referral Source: Christianne Da Silva MD [...] alert. Lungs: Br (more content not included)... [facility] 12-22-2022 Note Subjective Patient ID: Delicia Serrano [...] Scheduling Instructions: The phone number to contact [facility] Radiology is Once you have [...] up in about 4 weeks (around 01/19/2023). [facility] 11-20-2022 Progress note Note Date/Time November 20, 2022 11:09[facility] at [address] [address] Hem/Onc Follow Up Note - OP Signed Patient: Delicia Serrano MR#: [id number] : 1980 Acct:[id number] Age/Sex: 42 / F Type: REG RCR [...] dizziness or focal weakness or sensory changes. [facility] - Medical History Medical History: Medical [...] mg/1.5 mL subcutaneous auto-injector (Ajovy) 225 mg [id number] 11/03/22 [History Confirmed 11/20/22] furosemide 20 mg [...] 94. Total bilirubin 0.3. Her LDH was [id number]. Serum protein electrophoresis revealed no M protein [...] IgE G was 676 normal IgM was [id number] and IgA was normal at 92. Rheumatoid [...] for coordination of care (as documented) and swhx-ty-aden counseling of patient and/or family. Dictated By: Mariana Cortes MD DD/ 1107 Signed By: <Electronically signed by Mariana Cortes MD> 11/20/[address] [facility] Work Phone: 1([phone]) 147-401109-05-2023 Note Attestation signed by Christianne Da Silva [...] PIP tender to palpat (more content not included)...[facility]08-23-2023 Consult note Author Nicki Duran [facility] November 05, 2022 4:26pm Note Date/Time November 04, 2022 3: 55pm [facility] [place] [address] Hem/Onc Consult Note - OP Signed Patient: Delicia Serrano MR#: [id number] : 1980 Acct:[id number] Age/Sex: 42 / F Type: REG RCR [...] for which she takes Lasix every day. [facility] - Medical History Medical History: Medical [...] mg/1.5 mL subcutaneous auto-injector (Ajovy) 225 mg [id number] 11/03/22 [History Confirmed 11/03/22] furosemide 20 mg [...] for coordination of care (as documented) and [id number] counseling of patient and/or family. Dictated By: Nicki Duran APRN DD/ 1555 Signed By: <Electronically signed by TATUM Duran> 11/05/22 [address] [facility] Work Phone: [phone] 342-661605-15-2021 NoteInfectious Disease COVID-19 Frequently Asked Questions COVID-19 (coronavirus disease) is an infection that is caused by a large family of viruses. Some viruses cause illness in people and others cause illness in animals like camels, cats, and bats. In some cases, the viruses that cause illness in animals can spread to humans. Where did the coronavirus come from? In February 2019, [place] told the World Health Organization (WHO) of several cases of lung disease (human respiratory illness). These cases were linked to an open seafood and livestock market in the city of [facility]. The link to the seafood and livestock [...] and virus naming World Health Organization (WHO): www.who.int/emergencies/diseases/xjstt-fydgvvegcmo-7007/technical-g uidance/kocbha-jzq-zhcizyzitno-disease-(covid-2019)-ezi-erl-pzsvt-xepy-zvlfaa-my Who is at risk for complications from [...] testing. Samples may in (more content not included)...[facility] Author Nicki Duran [facility] November 05, 2022 4:26pm Note Date/Time November 04, 2022 3: 55pm [facility] [place] [address] Hem/Onc Consult Note - OP Signed Patient: Delicia Serrano MR#: [id number] : 1980 Acct:[id number] Age/Sex: 42 / F Type: REG RCR [...] for which she takes Lasix every day. [facility] - Medical History Medical History: Medical [...] mg/1.5 mL subcutaneous auto-injector (Ajovy) 225 mg [id number] 11/03/22 [History Confirmed 11/03/22] furosemide 20 mg [...] for coordination of care (as documented) and jikr-pc-[id number] counseling of patient and/or family. Dictated By: Nicki Duran APRN DD/ 1555 Signed By: <Electronically signed by TATUM Duran> 11/05/[address] [facility] Work Phone: Evaluation noteNo assessment information available [facility] Work Phone: Evaluation note* Diagnosis Onset Date Resolution Status Abnormal SPEP acute [facility] Work Phone: Progress note Author Mariana Cortes [facility] November 20, 2022 11:13am Note Date/Time November 20, 2022 11:09am [facility] [place] [address] Hem/Onc Follow Up Note - OP Signed Patient: Delicia Serrano MR#: [id number] : 1980 Acct:[id number] Age/Sex: 42 / F Type: REG RCR [...] dizziness or focal weakness or sensory changes. [facility] - Medical History Medical History: Medical [...] mg/1.5 mL subcutaneous auto-injector (Ajovy) 225 mg [id number] 11/03/22 [History Confirmed 11/20/22] furosemide 20 mg [...] 94. Total bilirubin 0.3. Her LDH was [id number]. Serum protein electrophoresis revealed no M protein [...] IgE G was 676 normal IgM was [id number] and IgA was normal at 92. Rheumatoid [...] for coordination of care (as documented) and aqlh-[id number] counseling of patient and/or family. Dictated By: Mariana Cortes MD DD/ 1107 Signed By: <Electronically signed by Mariana Cortes MD> 11/20/[address] [facility] Work Phone: Summary Purpose Family History No [...] and content) DATE CREATED AUTHOR 08/11/2020 [facility] DATE CREATED AUTHOR AUTHOR'S ORGANIZ ATION 07/14/2021 [facility] DATE CREATED AUTHOR AUTHOR'S ORGANIZ ATION 07/22/2022 [facility] DATE CREATED AUTHOR AUTHOR'S ORGANIZ ATION 04/02/2023 [facility] DATE CREATED AUTHOR AUTHOR'S ORGANIZ ATION 08/12/2023 [facility] EPIC DATE CREATED AUTHOR AUTHOR'S SALO ATION 09/22/2023 [facility] Care Teams (unrecognized sec tion and [...] BE BASED ON THE PRIMARY CLINICAL RECORDS. [employer] provides no warranty or guarantee of the accuracy or completeness of information in this document.
== END 2023-10-02 14:30 | disposition home or self-care (01) ==
LOC: CARD 14:29
PROVIDERS: PCP Nurse Practitioner Family; Visit Provider Nurse Practitioner Family
DX: R55 Syncope and collapse (principal)
CPT/HCPCS: 93242

== ENCOUNTER 2023-12-29 13:59 | Outpatient (OUT) | payer OTHER, SELFPAY ==
--- NOTE | 2023-12-29 14:00 | CA_ITS ---
Patient Name: FABIOLA SERRANO MR#: [id number] : 1980 Exam Date: 12/29/2023 Ordering Doctor: DR. PERLITA SANFORD M.D. ECHOCARDIOGRAM REPORT PROCEDURE: CA ECHO DOPPLER COMPLETE INDICATIONS: Syncope and collapse, abnormal ECG, breast implants COMPARISON: None. DESCRIPTION: COMPLETE ECHOCARDIOGRAM Real-time transthoracic echocardiography with 2D, M-mode, spectral and color flow Doppler performed. QUALITY: Technical quality was good. LEFT VENTRICLE: Normal chamber size. Normal left ventricular wall thickness. LV EF: Normal left ventricular ejection fraction 55%, no regional wall motion abnormalities DIASTOLIC: Normal diastolic function. ATRIAL SEPTUM: Visually appears intact. LEFT ATRIUM: Normal chamber size. RIGHT ATRIUM: Normal chamber size. RIGHT VENTRICLE: Normal chamber size. Normal right ventricular systolic function. TRICUSPID VALVE: Normal mobility and thickness. No stenosis with trivial regurgitation. MITRAL VALVE: Normal mobility and thickness. No evidence of mitral valve stenosis. There is no mitral annular calcification. No mitral regurgitation. AORTIC VALVE: Normal trileaflet appearance. No visible sclerosis. Normal leaflet mobility. No evidence of aortic valve stenosis. No aortic regurgitation. AORTIC ROOT: Normal diameter and appearance. PULMONIC VALVE: Normal thickness and mobility. No stenosis. No regurgitation. PERICARDIUM: No evidence of pericardial effusion. IVC: Collapes with inspirations. PLEURA: CONCLUSION: Normal left ventricular systolic function without wall motion abnormalities, ejection fraction 55% Normal left ventricular diastolic function Normal right ventricle size and systolic function No evidence of pulmonary hypertension No significant valvular abnormalities Adult Echocardiography Procedure Report Left Ventricle LVEDD (3.7 - 5.6 cm): 3.73 cm LVESD (2.2 - 4.0 cm): 1.81 cm LVIVS thickness (0.6 - 1.2 cm): 0.72 cm LVPW thickness (0.5 - 1.0 cm): 0.87 cm e': E - e': 6.27 LVOT Max Gradient: 3.86 mm[Hg] LVOT Area (cm2): 0.98 m/s Peak Velocity (LVOT): 0.98 m/s Mean Velocity (LVOT): 0.68 m/s LVOT Diameter 1.86 cm Left Ventricular Ejection Fraction: Left Atrium LA Volume Index (2D A2C): Left Atrium Systolic Dimension: 2.62 cm Mitral Valve MV E to A Ratio: 0.96 MV Max Gradient: MV Mean Gradient: Mitral Valve A-Wave Peak Velocity: 0.84 m/s Mitral Valve E-Wave Peak Velocity: 0.80 m/s Cardiovascular Orifice Area: Right Ventricle RV Internal Diastolic Dimension: Aorta AO Root Diam: 2.81 cm Ascending Ao Diam: 2.47 cm Aortic Valve AoV Area (Peak Serjio): 1.98 cm2, 1.98 cm2 AoV Area (VTI): 2.13 cm2, 2.13 cm2 Deceleration [place]: Pressure Half-Time: Peak Velocity(Antegrade Flow): 1.35 m/s Peak Gradient(Antegrade Flow): 7.25 mm[Hg] Mean Velocity(Antegrade Flow): 0.86 m/s Mean Gradient(Antegrade Flow): 3.51 mm[Hg] Velocity Time Integral: 25.43 cm Tricuspid Valve Peak Velocity (Regurgitant Flow): Peak Velocity: Pulmonic Valve Mean Gradient: 3.65 mm[Hg] Mean Velocity: 0.88 m/s Peak Velocity: 1.40 m/s, 1.02 m/s Peak Gradient: 4.15 mm[Hg], 7.81 mm[Hg] Right Atrium Right Atrium Systolic Pressure: 16.92 ml, 16.92 ml Dictated by: Perlita Sanford MD on 12/29/2023 at 16:54 Approved by: Perlita Sanford MD on 12/29/2023 at 17:00
--- OUTSIDE RECORDS SUMMARY | 2023-12-29 14:21 | XMS_ITS | CCD ---
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 Name Role Phone MD Boyd Herrera Primary Care Provider [phone] NORTH Swartz Attending Provider [phone] CHATO, JENNY Admitting Unavailable CHATO, JENNY Attending [...] Primary Care Unavailable CHATO, JENNY Attending Unavailable HCATO, JENNY Admitting Unavailable HEMEYER ., DR CASTLE Primary Care Unavailable MD Boyd Herrera Primary Care Provider TATUM Duran Attending Provider MD Huey Sims Referring Provider MD Boyd Herrera Primary Care Provider TATUM Duran Attending Provider MD Huey Sims Referring Provider BLAYNE Dillard Attending Provider [phone] MD Boyd Herrera Primary Care Provider BLAYNE Dillard Attending Provider NORTH Swartz Attending Provider TATUM Duran Attending Provider MD Huey Sims Referring Provider [phone] TATUM Duran Attending Provider MD Huey Sims Referring Provider [phone] MD Boyd Herrera Primary Care Provider [phone] BLAYNE Dillard Attending Provider Boyd Herrera Primary Care Unavailable Jenny Swartz Admitting Unavailable Jenny Swartz Attending Unavailable Gilma, Disha Attending Unavailable Boyd Herrera Primary Care Unavailable Gilma, Disha Admitting Unavailable Huey Sims Referring Unavailable Boyd Herrera Primary Care Unavailable Nicki Duran Admitting Unavail able Nicki Duran Attending Unavail able Disha Dillard Attending Unavailable Boyd Herrera Primary Care Unavailable Disha Dillard Admitting Unavailable DISHA DILLARD Attending Unavailable DISHA DILLARD Attending Unavailable DISHA DILLARD Attending Unavailable PERKINS, CARLOS Attending Unavailable PERKINS, CARLOS Referring Unavailable ABUGHARBYEH, AYA Referring Unavailable BALDEV, ESTRELLITA Referring Unavailable PERKINS, CARLOS Attending Unavailable PERKINS, CARLOS Referring Unavailable PERKINS, CARLOS Referring Unavailable PERKINS, CARLOS Referring Unavailable PERKINS, CARLOS Referring Unavailable PERKINS, CARLOS Attending Unavailable PERKINS, CARLOS Referring Unavailable ABUGHARBYEH, AYA Attending Unavailable PREKINS, CARLOS Attending Unavailable ABUGHARBYEH, AYA Referring Unavailable ABUGHARBYEH, AYA Attending Unavailable BALDEV, ESTRELLITA Attending Unavailable PERKINS, CARLOS Attending Unavailable PERKINS, CARLOS Referring Unavailable ABUGHARBYEH, AYA Referring Unavailable ABUGHARBYEH, AYA Referring Unavailable PERKINS, CARLOS Attending Unavailable PERKINS, CARLOS Referring Unavailable BALDEV, ESTRELLITA Attending Unavailable ABUGHARBYEH, AYA Attending Unavailable ABUGHARBYEH, AYA Attending Unavailable YVETTE ROBLERO Attending Unavailable PERKINS, CARLOS Attending Unavailable PERLITA COOPER Attending Unavailable ABUGHARBYEH, AYA Attending Unavailable ABUGHARBYEH, AYA Attending Unavailable PERKINS, CARLOS Attending Unavailable Allergies Allergy Classification Reported Allergen(s) Allergy Type Date of Onset Reaction(s) Facility (8 sources) metFORMIN Drug Allergy 11-05-19 Unknown Reaction, Gastrointestinal Upset [facility] (2 sources) pioglitazone Drug Allergy [facility] (2 sources) Sulfonamides (Antibiotic) Drug allergy (disorder) 12-19-19 14 [facility] (8 sources) pioglitazone; Translations: [pioglitazone] Drug Allergy 11-05-19 Gastrointestinal Upset [facility] (8 sources) Sulfonamides (Antibiotic); Translations: [Sulfa (Sulfonamide Antibiotics)] Propensity to adverse reactions 08-27-19 Unknown Reaction, Difficulty Breathing [facility] (1 source) metFORMIN Drug Allergy 03-26-19 [facility] Repository (1 source) metFORMIN; Translations: [METFORMIN HCL] Drug Allergy 08-27-19 [facility] Repository Medications Current Medications Medication Drug Class(es) [...] (6 sources) Start: 11-03-2022 Fremanezumab-V fr m (Atira Systemsovy Autoinjector) 225 mg/1.5 mL Auto-Injector Active 225 [...] Start: 11-03-2022 take 1 tablet by bentley once daily at bedtime Topiramate (Topamax) 25 [...] Problem Classification Problem Date Documented Date Episodic/Chronic Conduction disorders (2 sources) Atrioventricular block, second degree; Translations: [Atrioventricular block, second degree] Onset: 12-18-2023 Chronic Deficiency and other anemia (1 source) Anemia, unspecified; Translations: [ANEMIA UNSPECIFIED] Onset: 07-03-2022 Episodic Hypertension with complications and secondary hypertension (2 sources) Hypertensive heart disease without heart failure; Translations: [Hypertensive heart disease without heart failure] Onset: 12-18-2023 Chronic Other hematologic conditions (5 sources) Protein electrophoresis abnormal; Translations: [Other specified abnormalities of plasma proteins] 11-04-2022 Episodic Other hematologic conditions (6 sources) Other specified abnormalities of plasma proteins; Translations: [Other nonspecific findings on examination of blood] Onset: 02-20-2023 11-20-2022 Episodic Other nervous system disorders (2 sources) Other chronic pain; Translations: [Other chronic pain] Onset: 03-30-2023 Chronic Other non-traumatic joint disorders (2 sources) Other specified arthritis, unspecified site; Translations: [Other specified arthritis, unspecified site] Onset: 02-02-2023 Chronic Other screening for suspected conditions (not mental disorders or infectious disease) (2 sources) Abnormal electrocardiogram [ECG] [EKG]; Translations: [Abnormal electrocardiogram (ECG) (EKG)] Onset: 12-18-2023 Episodic Spondylosis; intervertebral disc disorders; other back problems (4 sources) Spondylosis without myelopathy or radiculopathy, lumbosacral region; Translations: [Spondylosis without myelopathy or radiculopathy, lumbar region] Onset: 03-30-2023 Chronic Spondylosis; intervertebral disc disorders; other back problems (12 sources) Cervicalgia; Translations: [Radiculopathy, cervical region] Onset: 12-22-2022 Episodic Syncope (2 sources) Syncope and collapse; Translations: [Syncope and collapse] Onset: 12-18-2023 Episodic Unclassified (1 source) CONTACT W/AND (SUSP) [...] Translations: [Dizziness and giddiness] Onset: 11-27-2022 Episodic Diabetes mellitus without complication (7 sources) Hyperglycemia, unspecified; Translations: [Impaired glucose tolerance (oral)] Onset: 06-28-2022 Episodic Fever of unknown origin (4 sources) Fever presenting with conditions classified elsewhere; Translations: [Fever, unspecified] Onset: 06-02-2023 Episodic Fluid and electrolyte disorders (1 source) Dehydration; Translations: [DEHYDRATION] Onset: 08-15-2021 Episodic Genitourinary symptoms and ill-defined conditions (2 sources) Dysuria; Translations: [Dysuria] Onset: 02-02-2023 Episodic Malaise and fatigue (3 sources) Weakness; Translations: [WEAKNESS] Onset: 08-12-2021 Episodic Other aftercare (3 sources) Other senior living (current) drug therapy; Translations: [OTH [facility] CURRENT DRUG THERAPY] Onset: 08-15-2021 Episodic Other connective tissue disease (2 sources) Fibromyalgia; Translations: [Fibromyalgia] Onset: 11-18-2022 Episodic Other connective tissue disease (2 sources) Pain in right hand; Translations: [Pain in right hand] Onset: 11-18-2022 Episodic Other connective tissue disease (2 sources) Pain in left hand; Translations: [Pain in left hand] Onset: 11-18-2022 Episodic Other lower respiratory disease (2 sources) Chronic cough; Translations: [Chronic cough] Onset: 06-02-2023 Episodic Residual codes; unclassified (2 sources) Personal history of systemic steroid therapy; Translations: [Personal history of systemic steroid therapy] Onset: 09-21-2023 Episodic Viral infection (1 source) Viral infection, unspecified; Translations: [VIRAL INFECTION UNSPECIFIED] Onset: 08-15-2021 Episodic Results Test Name Value Interpretation Reference Range Facility Office Visiton 12-18-2023 Follow-up visit [id number] Delicia Serrano 1980 F Date Provider Department Center 12/18/2023 [id number]-OOQIYBPERLITA COOPER KIRK [facility] Family History Problem Relation Age of Onset [...] Father's Sister Father's Brother Brother Level of Service:15943 [place] OFFICE/OUTPATIENT NEW MODERATE MDM 45 MINUTES Reason for Visit and Comments: New Patient [632] - 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 Normal [facility] Follow-Upon 12-15-2023 Follow-Up [id number] Delicia Serrano 1980 Date Provider Department Center 12/15/2023 [id number]-TCICXYVETTE ROBLERO MP [facility] Family History Problem Relation Age [...] Father's Sister Father's Brother Brother Level of Service:54319 [place] OFFICE/OUTPATIENT ESTABLISHED LOW MDM 20 MIN Reason for Visit and Comments: Follow-up [[id number]] - Lt SIJ [facility] 3612-09-2023 36 Last Visit: 09/21/23 Upcoming Visit: 12/21/23 Last CBC/CMP: 09/21/23 [facility] 12-08-2023 Refill [id number] Delicia Serrano 1980 F Date Provider Department Center 12/08/2023 Jaydon4-JUDITH BARBOSA [facility] Family History Problem [...] Reason for Visit and Comments: Med Refill [[id number]] [facility] 11-11-2023 36 Last Visit: 09/21/23 Upcoming Visit: 12/21/23 [facility] 11-11-2023 Refill [id number] Delicia Serrano 1980 F Date Provider Department Center 11/11/2023 JARED KNIGHT [facility] Family History Problem [...] Reason for Visit and Comments: Med Refill [[id number]] [facility] 11-10-2023 Refill [id number] eDlicia Serrano 1980 F Date Provider Department Center 11/10/2023 170-ESTRELLITA DE PAZ MP [facility] Family History Problem [...] Reason for Visit and Comments: Med Refill [[id number]] [facility] ANEItz 10-27-2023 ANES ------ -- Attestation signed by Carlos Perkins MD at 10/31/2023 9:22 AM GC: I saw this patient. I personally performed the critical/head portions that determines the level of service. I was directly involved in the management and treatment plan of the patient. I reviewed fellow Dr Healy's note and agree with the documentation -- Patient: Delicia Serrano Pre-sedation Evaluation: Sedation necessary for: The need for minimal IV sedation to allow for patient to safely undergo the diagnostic/therapeutic procedure has been established by the patients long history of chronic pain and intolerance to oral sedation for prior procedures. The goal of sedation is to allow patient to normally respond to verbal commands without impairing airway reflexes or cardiopulmonary functions and minimize potential risks of needle displacement with movement. In addition as we are a training institution some procedures may require prolonged periods where the patient is required to be motionless or remain in a painful position warrant the use of anxiolysis for best patient outcome. Patient informed of the risks benefits and alternatives a refuses to have procedure without IV sedation as previously tried and failed to tolerate. Requesting service: Pain Medicine History of Present Illness: 43 year old female here for left SI Joint injection with fluoroscopy Past Medical History: Diagnosis Date Back pain Chronic pain disorder Cluster headache Extremity pain Fibromyalgia, primary Headache Headache, tension-type Joint pain Low back pain Lyme disease Migraine Peripheral neuropathy Principle problems: Patient Active Problem List Diagnosis Date Noted Abnormal SPEP 09/28/2023 Brachial neuritis or radiculitis 08/08/2023 Carpal tunnel syndrome 08/08/2023 Chronic migraine without aura, with intractable migraine, so stated, with status migrainosus 08/08/2023 Degenerative disc disease, cervical 08/08/2023 Disturbance of skin sensation 08/08/2023 Insomnia 08/08/2023 Leg pain 08/08/2023 Malaise and fatigue 08/08/2023 Migraine 08/08/2023 Obstructive sleep apnea 08/08/2023 Paresthesia 08/08/2023 Shortness of breath on exertion 08/08/2023 Sleep disturbances 08/08/2023 Tension headache 08/08/2023 Vertigo 08/08/2023 Vestibular dysfunction 08/08/2023 Spondylosis without myelopathy or radiculopathy, lumbosacral region 03/30/2023 Lumbar spondylosis 03/30/2023 Other manager terminal (current) drug therapy 03/23/2023 Seronegative arthritis 02/02/2023 [...] GI Symptoms Pioglitazone Other reaction(s): stomach upset 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 Do not crush or chew. 30 capsule 1 ferrous sulfate 325 (65 Fe) MG tablet Take 1 tablet by mouth in the morning. folic acid (Folvite) 1 mg tablet Take 1 tablet (1 mg) by mouth in the morning. 90 tablet 0 FreeStyle Yared 3 Sensor device USE DIRECTED AND CHANGE EVERY 2 WEEKS FreeStyle Lite Strips strip furosemide (Lasix) 20 mg tablet Take 20 mg by mouth if needed in the morning and at bedtime. methotrexate 2.5 mg tablet Take 6 tablets (15 mg total) by mouth 1 (one) time per week 72 tablet 1 multivita (more content not included)... [facility] HPon 10-27-2023 HP H&P reviewed. The long ana maria was examined and there are no changes to the H&P. [facility] NURSNOTEon 10-27-2023 NURSNOTE Interventional Pain Management Nursing Note / Nurse Post-Call Note 10/28/23 1021 Physical Condition (Summarize discussion in comments) Have you had trouble breathing? No Have you had a sore throat? No Have you vomited or felt nauseated? No Have you had a fever? No Pain Score 2 Follow Up (Summarize discussion in comments) Patient given contact information for surgery department and physician Yes S/P Left SIJ injection. Patient reports post procedure pain being a 2. Patient did not have any questions or concerns. Patient reminded of next appointment. [facility] Follow-Upon 09-30-2023 Follow-Up [id number] Delicia Serrano 1980 F Date Provider Department Center 09/30/2023 Goran-ESTRELLITA DE PAZ MP [facility] Family History Problem [...] Father's Sister Father's Brother Brother Level of Service:92592 [place] OFFICE/OUTPATIENT ESTABLISHED LOW MDM 20 MIN Reason for Visit and Comments: Follow-up [[id number]] - LEFT SIJ INJECTION - 0% pain relief Normal [facility] CBC WITH AUTO DIFFERENTIALon 09-21-2023 Basophils (Bld) [#/Vol] 0.04 10*3/uL Normal 0.00-0.20 [facility] Comment on above: Performed By: #### L [id number] #### [facility] ([facility] [address] [place] [address] Basophils/100 WBC (Bld) 0.4 % Normal 0.0-1.0 [facility] Comment on above: Performed By: #### L [id number] #### [facility] ([facility] [address] [place] [address] Eosinophils (Bld) [#/Vol] 0.11 10*3/uL Normal 0.00-0.50 [facility] Comment on above: Performed By: #### L [id number] #### [facility] ([facility]) [address] [place] [address] Eosinophils/100 WBC (Bld) 1.2 % Normal 0.0-6.0 [facility] Comment on above: Performed By: #### L [id number] #### [facility] ([facility]) [address] [place] [address] Erythrocyte distribution width (RBC) [Ratio] 13.5 % Normal 11.5-15.0 [facility] Comment on above: Performed By: #### L [id number] #### [facility] ([facility]) [address] [place] [address] ERYTHROCYTE MEAN CORPUSCULAR HEMOGLOBIN CONCENTRATION (G/DL) BY AUTOMATED 34.3 g/dL Normal 32.0-35.0 [facility] Comment on above: Performed By: #### L [id number] #### [facility] ([facility]) [address] [place] [address] Hematocrit (Bld) [Volume fraction] 40.5 % Normal 36.0-48.0 [facility] Comment on above: Performed By: #### L [id number] #### [facility] ([facility]) [address] [place] [address] Hemoglobin (Bld) [Mass/Vol] 13.9 g/dL Normal 12.0-15.0 [facility] Comment on above: Performed By: #### L [id number] #### [facility] ([facility] [address] [place] [address] Immature granulocytes (Bld) [#/Vol] 0.02 10*3/uL Normal 0.00-0.20 [facility] Comment on above: Performed By: #### L [id number] #### [facility] ([facility] [address] [place] [address] Immature granulocytes/100 WBC (Bld) 0.2 % Normal 0.0-1.0 [facility] Comment on above: Performed By: #### L [id number] #### [facility] ([facility] [address] [place] [address] Lymphocytes (Bld) [#/Vol] 3.01 10*3/uL Normal 1.20-4.00 [facility] Comment on above: Performed By: #### L [id number] #### [facility] ([facility] [address] [place] [address] Lymphocytes/100 WBC (Bld) 31.7 % Normal 20.0-45.0 [facility] Comment on above: Performed By: #### L [id number] #### [facility] ([facility]) [address] [place] [address] MCH (RBC) [Entitic mass] 30.6 pg Normal 27.0-33.0 [facility] Comment on above: Performed By: #### L [id number] #### [facility] ([facility]) [address] [place] [address] MCV (RBC) [Entitic vol] 89.2 fL Normal 82.0-98.0 [facility] Comment on above: Performed By: #### L [id number] #### [facility] ([facility] [address] [place] [address] Monocytes (Bld) [#/Vol] 0.36 10*3/uL Normal 0.10-1.00 [facility] Comment on above: Performed By: #### L [id number] #### [facility] ([facility] [address] [place] [address] Monocytes/100 WBC (Bld) 3.8 % Low 5.0-12.0 [facility] Comment on above: Performed By: #### L [id number] #### [facility] ([facility] [address] [place] [address] Neutrophils (Bld) [#/Vol] 5.95 10*3/uL Normal 1.60-7.60 [facility] Comment on above: Performed By: #### L [id number] #### [facility] ([facility] [address] [place] [address] Neutrophils/100 WBC (Bld) 62.7 % Normal 40.0-72.0 [facility] Comment on above: Performed By: #### L [id number] #### [facility] ([facility] [address] [place] [address] NRBC (PER 100 WBCS) BY AUTOMATED COUNT 0.0 % Normal 0 [facility] Comment on above: Performed By: #### L [id number] #### [facility] ([facility] [address] [place] [address] PLATELETS (10*3/UL) IN BLOOD AUTOMATED COUNT 313 10*3/uL Normal 150-400 [facility] Comment on above: Performed By: #### L [id number] #### [facility] ([facility] [address] [place] [address] RBC (Bld) [#/Vol] 4.54 10*6/uL Normal 3.80-5.00 [facility] Comment on above: Performed By: #### L [id number] #### [facility] ([facility]) [address] [place] [address] WBC (Bld) [#/Vol] 9.49 10*3/uL Normal 4.00-10.60 [facility] Comment on above: Performed By: #### L [id number] #### [facility] ([facility] [address] [place] [address] COMPREHENSIVE METABOLIC PANE Raimundo 09-21-2023 Albumin [Mass/Vol] 4.5 g/dL Normal 3.5-5.7 [facility] Comment on above: Performed By: #### L [id number] #### [facility] ([facility] [address] [place] [address] ALP [Catalytic activity/Vol] 59 U/L Normal 34-104 [facility] Comment on above: Performed By: #### L [id number] #### [facility] ([facility] [address] [place] [address] ALT [Catalytic activity/Vol] 21 U/L Normal 7-52 [facility] Comment on above: Performed By: #### L [id number] #### [facility] ([facility] [address] [place] [address] Anion gap [Moles/Vol] 12 mmol/L Normal 7-20 [facility] Comment on above: Performed By: #### L [id number] #### [facility] ([facility] [address] [place] [address] AST [Catalytic activity/Vol] 17 U/L Normal 13-39 [facility] Comment on above: Performed By: #### L [id number] #### [facility] ([facility] [address] [place] [address] Bilirubin [Mass/Vol] 0.5 mg/dL Normal 0.3-1.0 [facility] Comment on above: Performed By: #### L [id number] #### [facility] ([facility]) [address] [place] [address] Calcium [Mass/Vol] 9.1 mg/dL Normal 8.6-10.3 [facility] Comment on above: Performed By: #### L [id number] #### [facility] ([facility] [address] [place] [address] Chloride [Moles/Vol] 108 mmol/L High 98-107 [facility] Comment on above: Performed By: #### L [id number] #### [facility] ([facility] [address] [place] [address] CO2 [Moles/Vol] 23 mmol/L Normal 21-31 [facility] Comment on above: Performed By: #### L [id number] #### [facility] ([facility] [address] [place] [address] Creatinine [Mass/Vol] 1.16 mg/dL Normal 0.60-1.20 [facility] Comment on above: Performed By: #### L [id number] #### [facility] ([facility] [address] [place] [address] GLOMERULAR FILTRATION RATE ML/MIN/1.73 SQ M.PREDICTED 60.4 mL/min/1.73m*2 Normal >60.0 [facility] Comment on above: Result Comment: [facility]???s estimated glomerular filtration rate (eGFR) will no [...] individuals. Performed By: #### L [id number] #### [facility] ([facility] [address] [place] [address] Glucose [Mass/Vol] 90 mg/dL Normal 70-100 [facility] Comment on above: Performed By: #### L [id number] #### [facility] ([facility]) [address] [place] [address] Potassium [Moles/Vol] 3.9 mmol/L Normal 3.5-5.1 [facility] Comment on above: Performed By: #### L [id number] #### [facility] ([facility]) [address] [place] [address] Protein [Mass/Vol] 7.1 g/dL Normal 6.0-8.3 [facility] Comment on above: Performed By: #### L [id number] #### [facility] ([facility]) [address] [place] [address] Sodium [Moles/Vol] 139 mmol/L Normal 136-145 [facility] Comment on above: Performed By: #### L [id number] #### [facility] ([facility]) [address] [place] [address] Urea nitrogen [Mass/Vol] 13 mg/dL Normal 7-25 [facility] Comment on above: Performed By: #### L [id number] #### [facility] (BEAKER) [address] [place] [address] UREA NITROGEN/CREATININE (MASS RATIO) IN SER/PLAS 11.[address] [facility] Comment on above: Performed By: #### L [id number] #### [facility] (BEAKER) [address] [place] [address] Follow-Upon 09-21-2023 Follow-Up [id number] Delicia Serrano 1980 F Date Provider Department Center 09/21/2023 3554-CHRISTIANNE DA SILVA [facility] RHEUM [facility] Family History Problem [...] Father's Sister Father's Brother Brother Level of Service:35324 [place] OFFICE/OUTPATIENT ESTABLISHED MOD MDM 30 MIN (GC) Reason for Visit and Comments: Arthritis [[id number]] - [address] [facility] HEMOGLOBIN A1Con 09-21-2023 Glucose [Mass/Vol] 105 mg/dL Normal [facility] Comment on above: Performed By: #### L [id number] #### [facility] (BEAKER) [address] [place] [address] HbA1c (Bld) [Mass fraction] 5.3 % Normal 4.0-6.0 [facility] Comment on above: Performed By: #### L [id number] #### [facility] (BEAKER) [address] [place] [address] Labon 09-21-2023 Lab [id number] Delicia Serrano 1980 F Date Provider Department Center 09/21/2023 2244-[facility] MP LAB RESOURCE MP DRAW Medical Pavi [...] Daughter Father's Sister Father's Brother Brother Normal [facility] 36on 08-13-2023 36 Last visit 06/30/23 Upcoming visit 09/21/23 Last cbc/cmp 06/30/[address] [facility] Abstracton 08-13-2023 Abstract [id number] Delicia Serrano 1980 Provider Department Center 08/13/2023 SYLVIA BRAR Donovan RHEUM Her[facility] Heal Family History Problem Relation [...] Son Daughter Father's Sister Father's Brother Brother [facility] Refillon 08-13-2023 Refill [id number] Delicia Serrano 1980 Provider Department [place] 08/13/2023 SYLVIA BRAR RHEUM [facility] Family History Problem Relation [...] Reason for Visit and Comments: Med Refill [[id number]] [facility] Aviva 08-06-2023 ANES ------ -- Attestation signed by [...] lumbosacral region 03/30/2023 Lumbar spondylosis 03/30/2023 Other manager terminal (current) drug therapy 03/23/2023 Seronegative arthritis 02/02/2023 [...] GI Symptoms Pioglitazone Other reaction(s): stomach upset 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 phentermine (Adipex-P) 37.5 mg [...] Rhythm: re (more content not included)... Normal [facility] HPon 08-06-2023 HP H&P reviewed. The long rodgers was examined and there are no changes to the H&P. Continues to have low back pain Normal [facility] NURSNOTEon 08-06-2023 NURSNOTE Interventional Pain Management Nursing Note / Nurse Post-Call S/P Left SIJ VM left with RTC reminder 08/07/23 1045 Follow Up (Summarize discussion in comments) Patient given contact information for surgery department and physician Yes Normal [facility] Prep for Procedureon 024 Prep for Procedure [id number] Delicia Serrano 1980 F Date Provider Department Center 07/29/2023 CARLOS ROWE MP [facility] Family History Problem Relation Age of [...] Daughter Father's Sister Father's Brother Brother Normal [facility] Follow-Upon 07-09-2023 Follow-Up [id number] Delicia Serrano 1980 F Date Provider Department Center 07/09/2023 170-ESTRELLITA DE PAZ MP PAIN Medical Pavi Family History Problem [...] Father's Sister Father's Brother Brother Level of Service:10508 [place] OFFICE/OUTPATIENT ESTABLISHED LOW MDM 20 MIN Reason for Visit and Comments: Back Pain [12] - ИВАН RFA L4/5 L5/S1 - 85%improvement Hip Pain [010729] - Left hip pain Normal [facility] COMPREHENSIVE METABOLIC PANE Raimundo 06-30-2023 Albumin [Mass/Vol] 4.5 g/dL Normal 3.5-5.7 [facility] Comment on above: Performed By: #### L [id number] #### [facility] (BEAKER) [address] [place] [address] ALP [Catalytic activity/Vol] 85 U/L Normal 34-104 [facility] Comment on above: Performed By: #### L [id number] #### [facility] (BEAKER) [address] [place] [address] ALT [Catalytic activity/Vol] 19 U/L Normal 7-52 [facility] Comment on above: Performed By: #### L [id number] #### [facility] ([facility] [address] [place] [address] Anion gap [Moles/Vol] 11 mmol/L Normal 7-20 [facility] Comment on above: Performed By: #### L [id number] #### [facility] ([facility] [address] [place] [address] AST [Catalytic activity/Vol] 18 U/L Normal 13-39 [facility] Comment on above: Performed By: #### L [id number] #### [facility] ([facility] [address] [place] [address] Bilirubin [Mass/Vol] 0.5 mg/dL Normal 0.3-1.0 [facility] Comment on above: Performed By: #### L [id number] #### [facility] ([facility] [address] [place] [address] Calcium [Mass/Vol] 9.6 mg/dL Normal 8.6-10.3 [facility] Comment on above: Performed By: #### L [id number] #### [facility] ([facility] [address] [place] [address] Chloride [Moles/Vol] 104 mmol/L Normal 98-107 [facility] Comment on above: Performed By: #### L [id number] #### [facility] ([facility]) [address] [place] [address] CO2 [Moles/Vol] 26 mmol/L Normal 21-31 [facility] Comment on above: Performed By: #### L [id number] #### [facility] ([facility]) [address] [place] [address] Creatinine [Mass/Vol] 0.97 mg/dL Normal 0.60-1.20 [facility] Comment on above: Performed By: #### L [id number] #### [facility] (BEAKER) [address] [place] [address] GLOMERULAR FILTRATION RATE ML/MIN/1.73 SQ M.PREDICTED 74.8 mL/min/1.73m*2 Normal >60.0 [facility] Comment on above: Result Comment: The [facility]???s estimated glomerular filtration rate (eGFR) will no [...] individuals. Performed By: #### L [id number] #### [facility] ([facility] [address] [place] [address] Glucose [Mass/Vol] 93 mg/dL Normal 70-100 [facility] Comment on above: Performed By: #### L [id number] #### [facility] ([facility] [address] [place] [address] Potassium [Moles/Vol] 3.9 mmol/L Normal 3.5-5.1 [facility] Comment on above: Performed By: #### L [id number] #### [facility] ([facility] [address] [place] [address] Protein [Mass/Vol] 7.0 g/dL Normal 6.0-8.3 [facility] Comment on above: Performed By: #### L [id number] #### [facility] ([facility]) [address] [place] [address] Sodium [Moles/Vol] 137 mmol/L Normal 136-145 [facility] Comment on above: Performed By: #### L [id number] #### [facility] (BEAKER) [address] [place] [address] Urea nitrogen [Mass/Vol] 17 mg/dL Normal 7-25 [facility] Comment on above: Performed By: #### L [id number] #### [facility] (BEAKER) [address] [place] [address] UREA NITROGEN/CREATININE (MASS RATIO) IN SER/PLAS 17.[address] [facility] Comment on above: Performed By: #### L [id number] #### [facility] (BEAKER) [address] [place] [address] Follow-Upon 06-30-2023 Follow-Up [id number] Delicia Serrano 1980 F Date Provider Department Center 06/30/2023 3554-CHRISTIANNE DA SILVA C RHEUM [facility] Family History Problem Relation [...] Father's Sister Father's Brother Brother Level of Service:98753 [place] OFFICE/OUTPATIENT ESTABLISHED MOD MDM 30 MIN (GC) Reason for Visit and Comments: Follow-up [584011] Normal [facility] HEMOGLOBIN A1Con 06-30-2023 Glucose [Mass/Vol] 88 mg/dL Normal [facility] Comment on above: Performed By: #### L [id number] #### [facility] ([facility]) [address] [place] [address] HbA1c (Bld) [Mass fraction] 4.7 % Normal 4.0-6.0 [facility] Comment on above: Performed By: #### L [id number] #### [facility] (BEAKER) [address] [place] [address] Labon 06-30-2023 Lab [id number] Delicia Serrano 1980 F Date Provider Department Center 06/30/2023 2244-[facility] MP LAB RESOURCE MP DRAW Medical Pavi [...] Daughter Father's Sister Father's Brother Brother Normal [facility] URINALYSISon 06-30-2023 BILIRUBIN, TOTAL PRESENCE IN URINE Negative Normal Negative [facility] Comment on above: Order Comment: Micro scopics not performed on urines with negative chemical reactions unless requested on original order. Performed By: #### L [id number] #### [facility] (AKER) [address] [place] [address] Clarity (U) Clear Normal Clear [facility] Comment on above: Order Comment: Micro scopics not performed on urines with negative chemical reactions unless requested on original order. Performed By: #### L [id number] #### [facility] (BEAKER) [address] [place] [address] Color (U) Straw Abnormal Yellow [facility] Comment on above: Order Comment: Micro scopics not performed on urines with negative chemical reactions unless requested on original order. Performed By: #### L [id number] #### [facility] ([facility] [address] [place] [address] Glucose (U) [Mass/Vol] Negative Normal [facility] Comment on above: Order Comment: Micro scopics not performed on urines with negative chemical reactions unless requested on original order. Performed By: #### L [id number] #### [facility] ([facility]) [address] [place] [address] HEMOGLOBIN PRESENCE IN URINE Negative Normal Negative [facility] Comment on above: Order Comment: Micro scopics not performed on urines with negative chemical reactions unless requested on original order. Performed By: #### L [id number] #### [facility] ([facility]) [address] [place] [address] Ketones Ql (U) Negative Normal Negative [facility] Comment on above: Order Comment: Micro scopics not performed on urines with negative chemical reactions unless requested on original order. Performed By: #### L [id number] #### [facility] ([facility])) [address] [place] [address] LEUKOCYTE ESTERASE PRESENCE IN URINE BY TEST STRIP Negative Normal Negative [facility] Comment on above: Order Comment: Micro scopics not performed on urines with negative chemical reactions unless requested on original order. Performed By: #### L [id number] #### [facility] ([facility] [address] [place] [address] NITRITE PRESENCE IN URINE Negative Normal Negative [facility] Comment on above: Order Comment: Micro scopics not performed on urines with negative chemical reactions unless requested on original order. Performed By: #### L [id number] #### [facility] ([facility] [address] [place] [address] pH (U) 5.0 [pH] Normal 5.0-8.0 [facility] Comment on above: Order Comment: Micro scopics not performed on urines with negative chemical reactions unless requested on original order. Performed By: #### L [id number] #### [facility] ([facility])) [address] [place] [address] Protein (U) [Mass/Vol] Negative Normal Negative [facility] Comment on above: Order Comment: Micro scopics not performed on urines with negative chemical reactions unless requested on original order. Performed By: #### L [id number] #### [facility] (BEAKER) [address] [place] [address] Specific gravity (U) [Rel density] 1.006 Low 1.015-1.020 [facility] Comment on above: Order Comment: Micro scopics not performed on urines with negative chemical reactions unless requested on original order. Performed By: #### L [id number] #### [facility] (BEAKER) [address] [place] [id number] URINE CULTURE, ROUTINEon Bacteria identified Cx Nom (U) 10,000 - 50,000 CFU/ML Uro-Genital Mariela Normal 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 phentermine (Adipex-P) 37.5 mg [...] includes section, classic; (more content not included)... Normal [facility] NURSNOTEon 06-09-2023 NURSNOTE Interventional Pain Management Nursing [...] for surgery department and physician Yes Normal [facility] Prep for Procedureon 024 Prep for Procedure [id number] Delicia Serrano 1980 F Date Provider Department Center 06/09/2023 CARLOS ROWE [facility] Family History Problem Relation Age of [...] Daughter Father's Sister Father's Brother Brother Normal [facility] Orders Onlyon 06-05-2023 Orders Only [id number] Delicia Serrano 1980 F Date Provider Department Center 06/05/2023 Rex-CHRISTIANNE DA SILVA [facility] RHEUM [facility] Family History Problem Relation Age of Onset [...] Daughter Father's Sister Father's Brother Brother Normal [facility] Prep for Procedureon 024 Prep for Procedure [id number] Delicia Serrano 1980 F Date Provider Department Center 06/03/2023 CARLOS ROWE [facility] Medical Pavi Family History Problem Relation Age [...] Daughter Father's Sister Father's Brother Brother Normal [facility] BASIC METABOLIC PANELon 05-14 Anion gap [Moles/Vol] 11 mmol/L Normal 7-20 [facility] Comment on above: Performed By: #### L [id number] #### [facility] (BEAKER) [address] [place] [address] Calcium [Mass/Vol] 8.2 mg/dL Low 8.6-10.3 [facility] Comment on above: Performed By: #### L [id number] #### [facility] (BEAKER) [address] [place] [address] Chloride [Moles/Vol] 110 mmol/L High 98-107 [facility] Comment on above: Performed By: #### L [id number] #### [facility] (BEAKER) [address] [place] [address] CO2 [Moles/Vol] 23 mmol/L Normal 21-31 [facility] Comment on above: Performed By: #### L [id number] #### [facility] ([facility] [address] [place] [address] Creatinine [Mass/Vol] 0.91 mg/dL Normal 0.60-1.20 [facility] Comment on above: Performed By: #### L [id number] #### [facility] ([facility] [address] [place] [address] GLOMERULAR FILTRATION RATE ML/MIN/1.73 SQ M.PREDICTED 80.8 mL/min/1.73m*2 Normal >60.0 [facility] Comment on above: Result Comment: The [facility]???s estimated glomerular filtration rate (eGFR) will no [...] individuals. Performed By: #### L [id number] #### [facility] ([facility] [address] [place] [address] Glucose [Mass/Vol] 127 mg/dL High 70-100 [facility] Comment on above: Performed By: #### L [id number] #### [facility] ([facility] [address] [place] [address] Potassium [Moles/Vol] 3.5 mmol/L Normal 3.5-5.1 [facility] Comment on above: Performed By: #### L [id number] #### [facility] ([facility])) [address] [place] [address] Sodium [Moles/Vol] 140 mmol/L Normal 136-145 [facility] Comment on above: Performed By: #### L [id number] #### [facility] ([facility]) [address] [place] [address] Urea nitrogen [Mass/Vol] 18 mg/dL Normal 7-25 [facility] Comment on above: Performed By: #### L [id number] #### [facility] ([facility]) [address] [place] [address] UREA NITROGEN/CREATININE (MASS RATIO) IN SER/PLAS 19.[address] [facility] Comment on above: Performed By: #### L [id number] #### [facility] ([facility])) [address] [place] [address] BLOOD CULTUREon 06-02-2023 Bacteria identified Cx Nom (Bld) No growth at [address] [facility] Comment on above: Performed By: #### L [id number] ####[facility] ([facility] [place] [address] C3 COMPLEMENTon 06-02-2023 Magnesium [Mass/Vol] 142.00 mg/dL Normal 79.00-[address] [facility] Comment on above: Performed By: #### L [id number] ####[facility] ([facility] [place] [address] C4 COMPLEMENTon 06-02-2023 Magnesium [Mass/Vol] 38.9 mg/dL High 16-38 [facility] Comment on above: Performed By: #### L [id number] #### [facility] ([facility])) [address] [place] [address] Follow-Upon 06-02-2023 Follow-Up [id number] Delicia Serrano 1980 F Date Provider Department Center 06/02/2023 CHRISTIANNE LIPSCOMB C RHEUM [facility] Family History Problem Relation [...] Father's Sister Father's Brother Brother Level of Service:43254 [place] OFFICE/OUTPATIENT ESTABLISHED MOD MDM 30 MIN Reason for Visit and Comments: Follow-up [[id number]] - generalized pain; 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 Normal [facility] Labon 06-02-2023 Lab [id number] Delicia Serrano 1980 F Date Provider Department Center 06/02/2023 2244-[facility] MP LAB RESOURCE MP DRAW Medical Pavi [...] Daughter Father's Sister Father's Brother Brother Normal [facility] URINALYSISon 06-02-2023 BILIRUBIN, TOTAL PRESENCE IN URINE Negative Normal Negative [facility] Comment on above: Performed By: #### L [id number] #### [facility] (BEAKER) [address] [place] [address] Clarity (U) Slightly Cloudy Abnormal Clear [facility] Comment on above: Performed By: #### L [id number] #### [facility] (BEAKER) [address] [place] [address] Color (U) Dinora Abnormal Yellow [facility] Comment on above: Performed By: #### L [id number] #### [facility] ([facility] [address] [place] [address] Glucose (U) [Mass/Vol] Negative Normal [facility] Comment on above: Performed By: #### L [id number] #### [facility] ([facility] [address] [place] [address] HEMOGLOBIN PRESENCE IN URINE Negative Normal Negative [facility] Comment on above: Performed By: #### L [id number] #### [facility] ([facility])) [address] [place] [address] Ketones Ql (U) Negative Normal Negative [facility] Comment on above: Performed By: #### L [id number] #### [facility] ([facility])) [address] [place] [address] LEUKOCYTE ESTERASE PRESENCE IN URINE BY TEST STRIP Negative Normal Negative [facility] Comment on above: Performed By: #### L [id number] #### [facility] ([facility])) [address] [place] [address] NITRITE PRESENCE IN URINE Negative Normal Negative [facility] Comment on above: Performed By: #### L [id number] #### [facility] ([facility] [address] [place] [address] pH (U) 5.0 [pH] Normal 5.0-8.0 [facility] Comment on above: Performed By: #### L [id number] #### [facility] ([facility] [address] [place] [address] Protein (U) [Mass/Vol] 30 mg/dL Abnormal Negative [facility] Comment on above: Performed By: #### L [id number] #### [facility] ([facility] [address] [place] [address] Specific gravity (U) [Rel density] 1.027 High 1.015-1.020 [facility] Comment on above: Performed By: #### L [id number] #### [facility] ([facility] [address] [place] [address] URINALYSIS MICROSCOPICon CALCIUM OXALATE CRYSTALS (#/HPF) IN URINE Many Abnormal None Seen [facility] Comment on above: Performed By: #### L [id number] #### [facility] ([facility] [address] [place] [address] CASTS IN URINE Normal [facility] Comment on above: Performed By: #### L [id number] #### [facility] ([facility] [address] [place] [address] CRYSTALS IN URINE Present Abnormal None Seen [facility] Comment on above: Performed By: #### L [id number] #### [facility] ([facility] ([facility] [address] [place] [address] MUCUS (#/HPF) IN URINE SEDIMENT Few Normal None Seen, Occasional, Few [facility] Comment on above: Performed By: #### L [id number] #### [facility] ([facility] [address] [place] [address] RBC (#/HPF) IN URINE SEDIMENT 3-[address] [facility] Comment on above: Performed By: #### L [id number] #### [facility] ([facility] [address] [place] [address] SQUAMOUS EPITHELIAL CELLS (#/HPF) IN URINE SEDIMENT Many Abnormal None Seen, Occasional [facility] Comment on above: Performed By: #### L [id number] #### [facility] ([facility] ([facility])) [address] [place] [address] WBC (LEUKOCYTE) (#/HPF) IN URINE SEDIMENT 3-[address] [facility] Comment on above: Performed By: #### L [id number] #### [facility] ([facility] [address] [place] [address] URINE CULTURE, ROUTINEon Bacteria identified Cx Nom (U) GARDNERELLA VAGINALIS Abnormal [facility] Comment on above: Result Comment: 50,0 00 - 100,000 CFU/Ml Gardnerella vaginalis Presumptive Identification Performed By: #### L [id number] ####[facility] (BEAKER)[address] [place] [address] 36on 06-01-2023 36 PT calling stating t he following: generalized pain; 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 PT reports having cough since Thanksgiving and fever in the last 3 weeks since Lumbar puncture performed at [facility]. APPT offered for Thursday, 06/01. Scheduled to be evaluated. ric Normal [facility] HPon 05-19-2023 HP History Of Present I [...] Arthritis Maternal Grandfather Dominick Cancer Maternal Grandfather Levelland Diabetes Maternal Grandfather Levelland Stroke Maternal Grandfather Levelland Arthritis Maternal Grandmother Raydene Cancer Maternal Grandmother [...] Role Carlos Perkins MD Proceduralist Keith Boston, CANDIDO Nurse Jane Ash, RN Nurse Yvette Roblero, [...] Type: Acute pain (more content not included)... [facility] HP History Of Present I llness [...] Negro Hyperlipidemia Father Negro Arthritis Maternal Grandfather Levelland Cancer Maternal Grandfather Levelland Diabetes Maternal Grandfather Levelland Stroke Maternal Grandfather Levelland Arthritis Maternal Grandmother Raydene Cancer Maternal Grandmother [...] Hospital Problems. bilateral RFA L4-L5, L5-S1. Normal [facility] NURSNOTEon 05-19-2023 NURSNOTE Interventional Pain Management Nursing Note / Nurse Post-Call Note Narrative Pt stated she received 80% relief for 6hrs post MBB #2 L4/5,L5/S1. Will schedule RFA. Normal [facility] 36on 05-12-2023 36 Last visit 03/23/23 Upcoming visit 06/23/23 Last cbc/cmp 04/21/23 [facility] Refillon 05-12-2023 Refill [id number] Delicia Serrano 1980 F Date Provider Department Center 05/12/2023 SYLVIA BRAR [...] Reason for Visit and Comments: Med Refill [[id number]] Normal [facility] Prep for Procedureon 024 Prep for Procedure [id number] Delicia Serrano 1980 F Date Provider Department Center 05/11/2023 KEITH VARELA [...] Daughter Father's Sister Father's Brother Brother Normal [facility] CBC WITH AUTO DIFFERENTIALon 04-21-2023 Basophils (Bld) [#/Vol] 0.05 10*3/uL Normal 0.00-0.20 [facility] Comment on above: Performed By: #### L [id number] #### [facility] ([facility]ER) [address] [place] [address] Basophils/100 WBC (Bld) 0.5 % Normal 0.0-1.0 [facility] Comment on above: Performed By: #### L [id number] #### [facility] ([facility]) [address] [place] [address] Eosinophils (Bld) [#/Vol] 0.16 10*3/uL Normal 0.00-0.50 [facility] Comment on above: Performed By: #### L [id number] #### [facility] ([facility] [address] [place] [address] Eosinophils/100 WBC (Bld) 1.7 % Normal 0.0-6.0 [facility] Comment on above: Performed By: #### L [id number] #### [facility] ([facility])) [address] [place] [address] Erythrocyte distribution width (RBC) [Ratio] 15.5 % High 11.5-15.0 [facility] Comment on above: Performed By: #### L [id number] #### [facility] ([facility] [address] [place] [address] ERYTHROCYTE MEAN CORPUSCULAR HEMOGLOBIN CONCENTRATION (G/DL) BY AUTOMATED 32.0 g/dL Normal 32.0-35.0 [facility] Comment on above: Performed By: #### L [id number] #### [facility] ([facility])) [address] [place] [address] Hematocrit (Bld) [Volume fraction] 41.2 % Normal 36.0-48.0 [facility] Comment on above: Performed By: #### L [id number] #### [facility] ([facility])) [address] [place] [address] Hemoglobin (Bld) [Mass/Vol] 13.2 g/dL Normal 12.0-15.0 [facility] Comment on above: Performed By: #### L [id number] #### [facility] ([facility])) [address] [place] [address] Immature granulocytes (Bld) [#/Vol] 0.04 10*3/uL Normal 0.00-0.20 [facility] Comment on above: Performed By: #### L [id number] #### [facility] (BEAKER) [address] [place] [address] Immature granulocytes/100 WBC (Bld) 0.4 % Normal 0.0-1.0 [facility] Comment on above: Performed By: #### L [id number] #### [facility] ([facility])) [address] [place] [address] Lymphocytes (Bld) [#/Vol] 2.02 10*3/uL Normal 1.20-4.00 [facility] Comment on above: Performed By: #### L [id number] #### [facility] ([facility])) [address] [place] [address] Lymphocytes/100 WBC (Bld) 22.1 % Normal 20.0-45.0 [facility] Comment on above: Performed By: #### L [id number] #### [facility] ([facility] [address] [place] [address] MCH (RBC) [Entitic mass] 30.0 pg Normal 27.0-33.0 [facility] Comment on above: Performed By: #### L [id number] #### [facility] ([facility])) [address] [place] [address] MCV (RBC) [Entitic vol] 93.6 fL Normal 82.0-98.0 [facility] Comment on above: Performed By: #### L [id number] #### [facility] ([facility]) [address] [place] [address] Monocytes (Bld) [#/Vol] 0.36 10*3/uL Normal 0.10-1.00 [facility] Comment on above: Performed By: #### L [id number] #### [facility] ([facility]) [address] [place] [address] Monocytes/100 WBC (Bld) 3.9 % Low 5.0-12.0 [facility] Comment on above: Performed By: #### L [id number] #### [facility] ([facility]) [address] [place] [address] Neutrophils (Bld) [#/Vol] 6.52 10*3/uL Normal 1.60-7.60 [facility] Comment on above: Performed By: #### L [id number] #### [facility] ([facility]) [address] [place] [address] Neutrophils/100 WBC (Bld) 71.4 % Normal 40.0-72.0 [facility] Comment on above: Performed By: #### L [id number] #### [facility] ([facility])) [address] [place] [id number] NRBC (PER 100 WBCS) BY AUTOMATED COUNT 0.0 % Normal 0 [facility] Comment on above: Performed By: #### L [id number] #### [facility] ([facility])) [address] [place] [id number] PLATELETS (10*3/UL) IN BLOOD AUTOMATED COUNT 339 10*3/uL Normal 150-400 [facility] Comment on above: Performed By: #### L [id number] #### [facility] ([facility])) [address] [place] [address] RBC (Bld) [#/Vol] 4.40 10*6/uL Normal 3.80-5.00 [facility] Comment on above: Performed By: #### L [id number] #### [facility] ([facility] [address] [place] [address] WBC (Bld) [#/Vol] 9.15 10*3/uL Normal 4.00-10.60 [facility] Comment on above: Performed By: #### L [id number] #### [facility] ([facility]) [address] [place] [address] COMPREHENSIVE METABOLIC PANE Raimundo 04-21-2023 Albumin [Mass/Vol] 4.6 g/dL Normal 3.5-5.7 [facility] Comment on above: Performed By: #### L [id number] #### [facility] ([facility]) [address] [place] [address] ALP [Catalytic activity/Vol] 73 U/L Normal 34-104 [facility] Comment on above: Performed By: #### L [id number] #### [facility] ([facility]) [address] [place] [address] ALT [Catalytic activity/Vol] 20 U/L Normal 7-52 [facility] Comment on above: Performed By: #### L [id number] #### [facility] ([facility])) [address] [place] [address] Anion gap [Moles/Vol] 11 mmol/L Normal 7-20 [facility] Comment on above: Performed By: #### L [id number] #### [facility] ([facility])) [address] [place] [address] AST [Catalytic activity/Vol] 17 U/L Normal 13-39 [facility] Comment on above: Performed By: #### L [id number] #### [facility] ([facility])) [address] [place] [address] Bilirubin [Mass/Vol] 0.3 mg/dL Normal 0.3-1.0 [facility] Comment on above: Performed By: #### L [id number] #### [facility] ([facility] [address] [place] [address] Calcium [Mass/Vol] 9.1 mg/dL Normal 8.6-10.3 [facility] Comment on above: Performed By: #### L [id number] #### [facility] ([facility]) [address] [place] [address] Chloride [Moles/Vol] 105 mmol/L Normal 98-107 [facility] Comment on above: Performed By: #### L [id number] #### [facility] ([facility]) [address] [place] [address] CO2 [Moles/Vol] 25 mmol/L Normal 21-31 [facility] Comment on above: Performed By: #### L [id number] #### [facility] ([facility])) [address] [place] [address] Creatinine [Mass/Vol] 1.03 mg/dL Normal 0.60-1.20 [facility] Comment on above: Performed By: #### L [id number] #### [facility] ([facility] [address] [place] [address] GLOMERULAR FILTRATION RATE ML/MIN/1.73 SQ M.PREDICTED 70.1 mL/min/1.73m*2 Normal >60.0 [facility] Comment on above: Result Comment: [facility]???s estimated glomerular filtration rate (eGFR) will no [...] individuals. Performed By: #### L [id number] #### [facility] ([facility])) [address] [place] [address] Glucose [Mass/Vol] 108 mg/dL High 70-100 [facility] Comment on above: Performed By: #### L [id number] #### [facility] ([facility] [address] [place] [address] Potassium [Moles/Vol] 3.4 mmol/L Low 3.5-5.1 [facility] Comment on above: Performed By: #### L [id number] #### [facility] ([facility] [address] [place] [address] Protein [Mass/Vol] 7.1 g/dL Normal 6.0-8.3 [facility] Comment on above: Performed By: #### L [id number] #### [facility] ([facility] [address] [place] [address] Sodium [Moles/Vol] 138 mmol/L Normal 136-145 [facility] Comment on above: Performed By: #### L [id number] #### [facility] ([facility] [address] [place] [address] Urea nitrogen [Mass/Vol] 16 mg/dL Normal 7-25 [facility] Comment on above: Performed By: #### L [id number] #### [facility] ([facility] [address] [place] [address] UREA NITROGEN/CREATININE (MASS RATIO) IN SER/PLAS 15.[address] [facility] Comment on above: Performed By: #### L [id number] #### [facility] ([facility] [address] [place] [address] HPon 04-21-2023 HP H&P reviewed. The pa ana maria was examined and there are no changes to the H&P. Patient continues to have back pain in her lumbar Normal [facility] Labon 04-21-2023 Lab [id number] Delicia Serrano 1980 F Date Provider Department Center 04/21/2023 2244-[facility] MP LAB RESOURCE MP DRAW Medical Pavi [...] Daughter Father's Sister Father's Brother Brother Normal [facility] NURSNOTEon 04-21-2023 NURSNOTE Interventional Pain Management Nursing Note / Nurse Post-Call Note MBB#1 completed 04/21 Narrative 04/22/23 8709 Physical Condition (Summarize discussion in comments) Have [...] functionality 80% x 4 hours CURRENT PAIN: 09/22 Denies complications, side effects, problems, or questions about discharge instruction. Plan for MBB#2 on May 16 [facility] POCT GLUCOSE METER UNSOLICIT ED RESULTSon 04-21-2023 Glucose [Mass/Vol] 112 mg/dL High 70-105 [facility] Comment on above: Order Comment: Waive d Testing in the ED is performed under the ED CLIA certificate #[id number]. Result Comment: mweb er Performed By: #### L [id number] #### [facility] ([facility]) [address] [place] [address] Prep for Procedureon 024 Prep for Procedure [id number] Delicia Serrano 1980 F Date Provider Department Center 04/20/2023 162YVETTE NEWBY MP [facility] Family History Problem Relation Age of [...] Daughter Father's Sister Father's Brother Brother Normal [facility] Prep for Procedureon 024 Prep for Procedure [id number] Delicia Serrano 1980 F Date Provider Department Center 04/15/2023 SHAMIR VALDEZ MP [facility] Family History Problem Relation Age of [...] Daughter Father's Sister Father's Brother Brother Normal [facility] Aerobic Cultureon 03-26-2023 Aerobic Culture CULTURE ADD ON PER Erinn DILLARD Tube Number for CSF Microbiology: 2 No Growth 2 Days CULTURE ADD ON PER DR. DILLARD Tube Number for CSF Microbiology: 2 No Anaerobes Isolated 3 Days CULTURE ADD ON PER DR. DILLARD Tube Number for CSF Microbiology: 2 Gram Stain Result No Bacteria Seen No White Blood Cells Seen PERFORMED BY: [place] [address] PATHOLOGIST CREATIVE SERVICES COORDINATOR JUNIOR GREEN M.D. [facility] Comment on above: Performed By: #### C SF GLU, CSFCCDIFF, CSF TP #2, CSFCCDIFF #2, CSF TP, CSF GLU #2 #### [facility] [address] [place] [address] [place] Cell Count Differential,CSFo n 03-26-2023 Appearance, CSF Clear Normal Clear [facility] Comment on above: Order Comment: Comme nt TUBE 1 Performed By: #### C SF GLU, CSFCCDIFF, CSF TP #2, CSFCCDIFF #2, CSF TP, CSF GLU #2 #### [facility] [address] [place] [address] [place] Color, CSF Colorless Normal Colorless [facility] Comment on above: Order Comment: Comme nt TUBE 1 Performed By: #### C SF GLU, CSFCCDIFF, CSF TP #2, CSFCCDIFF #2, CSF TP, CSF GLU #2 #### [facility] [address] [place] [address] CSF Supernatant Color Colorless Normal Colorless [facility] Comment on above: Order Comment: Comme nt TUBE 1 Performed By: #### C SF GLU, CSFCCDIFF, CSF TP #2, CSFCCDIFF #2, CSF TP, CSF GLU #2 #### [facility] [address] [place] [address] CSF Volume, Total 12.5 mL Normal [facility] Comment on above: Order Comment: Comme nt TUBE 1 Performed By: #### C SF GLU, CSFCCDIFF, CSF TP #2, CSFCCDIFF #2, CSF TP, CSF GLU #2 #### [facility] [address] [place] [address] Lymphocytes, CSF 56 % Normal 40-80 [facility] Comment on above: Order Comment: Comme nt TUBE 1 Performed By: #### C SF GLU, CSFCCDIFF, CSF TP #2, CSFCCDIFF #2, CSF TP, CSF GLU #2 #### [facility] [address] [place] [address] [place] Monocytes, CSF 43 % Normal 15-45 [facility] Comment on above: Order Comment: Comme nt TUBE 1 Performed By: #### C SF GLU, CSFCCDIFF, CSF TP #2, CSFCCDIFF #2, CSF TP, CSF GLU #2 #### [facility] [address] [place] [address] [place] Neutrophils, CSF 1 % Normal 0-6 [facility] Comment on above: Order Comment: Comme nt TUBE 1 Performed By: #### C SF GLU, CSFCCDIFF, CSF TP #2, CSFCCDIFF #2, CSF TP, CSF GLU #2 #### [facility] [address] [place] [address] RBC, CSF 11 /uL [facility] Comment on above: Order Comment: Comme nt TUBE 1 Result Comment: The reference interval and other method performance specifications have not been established for this body fluid. The test result must be integrated into the clinical context for interpretation. Performed By: #### C SF GLU, CSFCCDIFF, CSF TP #2, CSFCCDIFF #2, CSF TP, CSF GLU #2 #### [address] TNC, CSF 2 /uL Normal 0-5 [facility] Comment on above: Order Comment: Comme nt TUBE 1 Performed By: #### C SF GLU, CSFCCDIFF, CSF TP #2, CSFCCDIFF #2, CSF TP, CSF GLU #2 #### [address] Total Count, CSF 100 Normal [facility] Comment on above: Order Comment: Comme nt TUBE 1 Performed By: #### C SF GLU, CSFCCDIFF, CSF TP #2, CSFCCDIFF #2, CSF TP, CSF GLU #2 #### [address] Tube Number Tested, CSF Tube Number: 1 Normal [facility] Comment on above: Order Comment: Comme nt TUBE 1 Result Comment: PERF ORMED BY: [place] [address] PATHOLOGIST CREATIVE SERVICES COORDINATOR JUNIOR GREEN M.D. Performed By: #### C SF GLU, CSFCCDIFF, CSF TP #2, CSFCCDIFF #2, CSF TP, CSF GLU #2 #### [address] Cell Count Differential,CSF #2on 03-26-2023 Appearance, CSF Clear Normal Clear [facility] Comment on above: Order Comment: Comme nt TUBE 3 Performed By: #### C SF GLU, CSFCCDIFF, CSF TP #2, CSFCCDIFF #2, CSF TP, CSF GLU #2 #### [address] Color, CSF Colorless Normal Colorless [facility] Comment on above: Order Comment: Comme nt TUBE 3 Performed By: #### C SF GLU, CSFCCDIFF, CSF TP #2, CSFCCDIFF #2, CSF TP, CSF GLU #2 #### [address] CSF Supernatant Color Colorless Normal Colorless [facility] Comment on above: Order Comment: Comme nt TUBE 3 Performed By: #### C SF GLU, CSFCCDIFF, CSF TP #2, CSFCCDIFF #2, CSF TP, CSF GLU #2 #### [address] CSF Volume, Total 12.5 mL [facility] Comment on above: Order Comment: Comme nt TUBE 3 Performed By: #### C SF GLU, CSFCCDIFF, CSF TP #2, CSFCCDIFF #2, CSF TP, CSF GLU #2 #### [address] Lymphocytes, CSF 33 [facility] Comment on above: Order Comment: Comme nt TUBE 3 Result Comment: The reference interval and other method performance specifications have not been established for this body fluid. The test result must be integrated into the clinical context for interpretation. Performed By: #### C SF GLU, CSFCCDIFF, CSF TP #2, CSFCCDIFF #2, CSF TP, CSF GLU #2 #### [facility] [address] [place] [address] Monocytes, CSF 10 [facility] Comment on above: Order Comment: Comme nt TUBE 3 Result Comment: The reference interval and other method performance specifications have not been established for this body fluid. The test result must be integrated into the clinical context for interpretation. Performed By: #### C SF GLU, CSFCCDIFF, CSF TP #2, CSFCCDIFF #2, CSF TP, CSF GLU #2 #### [facility] [address] [place] [address] Neutrophils, CSF 0 [facility] Comment on above: Order Comment: Comme nt TUBE 3 Result Comment: The reference interval and other method performance specifications have not been established for this body fluid. The test result must be integrated into the clinical context for interpretation. Performed By: #### C SF GLU, CSFCCDIFF, CSF TP #2, CSFCCDIFF #2, CSF TP, CSF GLU #2 #### [address] RBC, CSF 0 /uL Normal [facility] Comment on above: Order Comment: Comme nt TUBE 3 Result Comment: The reference interval and other method performance specifications have not been established for this body fluid. The test result must be integrated into the clinical context for interpretation. Performed By: #### C SF GLU, CSFCCDIFF, CSF TP #2, CSFCCDIFF #2, CSF TP, CSF GLU #2 #### [address] TNC, CSF 3 /uL Normal 0-5 [facility] Comment on above: Order Comment: Comme nt TUBE 3 Performed By: #### C SF GLU, CSFCCDIFF, CSF TP #2, CSFCCDIFF #2, CSF TP, CSF GLU #2 #### [address] Tube Number Tested, CSF Tube Number: 3 Normal [facility] Comment on above: Order Comment: Comme nt TUBE 3 Result Comment: PERF ORMED BY: [place] [address] PATHOLOGIST CREATIVE SERVICES COORDINATOR JUNIOR GREEN M.D. Performed By: #### C SF GLU, CSFCCDIFF, CSF TP #2, CSFCCDIFF #2, CSF TP, CSF GLU #2 #### [address] Glucose, CSF #2on 03-26-2023 Glucose, CSF #2 82 mg/dL High 40-70 [facility] Comment on above: Order Comment: Comme nt TUBE 3 Performed By: #### C SF GLU, CSFCCDIFF, CSF TP #2, CSFCCDIFF #2, CSF TP, CSF GLU #2 #### [address] Glucose, Spinal Fluidon 03-16 Glucose, Spinal Fluid 80 mg/dL High 40-70 [facility] Comment on above: Order Comment: Comme nt TUBE 1 Performed By: #### C SF GLU, CSFCCDIFF, CSF TP #2, CSFCCDIFF #2, CSF TP, CSF GLU #2 #### [address] Gram Stainon 03-26-2023 Microscopic observation Gram stain Nom (Unsp spec) CULTURE ADD ON PER DR. DILLARD Tube Number for CSF Microbiology: 2 Gram Stain Result No Bacteria Seen No White Blood Cells Seen PERFORMED BY: [place] [address] PATHOLOGIST CREATIVE SERVICES COORDINATOR JUNIOR GREEN M.D. [facility] Comment on above: Performed By: #### C SF GLU, CSFCCDIFF, CSF TP #2, CSFCCDIFF #2, CSF TP, CSF GLU #2 #### [address] IR guided lumbar puncture LP on 03-26-2023 IR guided lumbar puncture LP [facility] [place] [address] [place] [address] Interventional Radiology Rpt Signed Patient: Delicia Serrano MR#: [id number] : 1980 Acct:[id number] Age/Sex: 42 / F ADM Date: 03/26/23 Loc: XD Room: Type: [facility] Attending Dr: Disha Dillard PA-C Copies [...] Felix Lawson M.D.03/26/2023 11:23 AM Dictation Location: [place] [address] Transcribed By: ZAHIRA 03/26/231122 Dictated By: Felix Lawson II, MD 03/26/231120 Signed By: 03/26/231122 [facility] 03-26-2023 L ------ Specimen: [id number] Received: 03/26/23 Status: JORGE Vincent Num: [id number] Spec Type: Cytology Subm Dr: NON STAFF Tissues: A CSF (CSF) Procedures: Cyto Prepstain, DIFF QWIK, PAPSTN Age/ Patient Sex Location Account Attending Physician Delicia Serrano 42/F XD [id number] Disha Dillard BLAYNE SPEC NUM: [id number] RECD: 03/26/23 STATUS: JORGE VINCENT NUM: [id number] KIMBERLY: 03/26/[address] [facility] [address]: JUNIOR STAFF ENTERED: 03/26/[address] [facility] [address]: SL[place] TYPE: Cytology DEPT: CNG ENTERED BY: [id number] RECV BY: [id number] ORDERED: Cyto Prepstain, DIFF QWIK, PAPSTN ORDERED: [...] slides are stained with Papanicolaou and Diff-Quik stains.(CC/ct) CPT Codes 05551 Specimen: [id number] Received: 03/26/23-1034 Status: JORGE Vincent Num: [id number] Spec Type: Cytology Subm Dr: NON STAFF Tissues: A CSF (CSF) Procedures: Cyto Prepstain, DIFF QWIK, PAPSTN Patient: Delicia Serrano [id number] (Continued) Signed (signature on file) Danny Schulz MD 03/27/23 1324 Normal [facility] MYELIN BASIC PROTEIN, CSFon 03-26-2023 MYELIN BASIC PROTEIN, CSF Normal [facility] Comment on above: Order Comment: Comme nt TUBE 3 Result Comment: See report. Scanned copy available in EMR. PERFORMED BY: [facility] [place] [address] PATHOLOGIST CREATIVE SERVICES COORDINATOR JUNIOR GREEN M.D. Performed By: #### C SF GLU, CSFCCDIFF, CSF TP #2, CSFCCDIFF #2, CSF TP, CSF GLU #2 #### [facility] [address] [place] [address] [place] Total Protein, CSF #2on 03-16 Total Protein, CSF #2 63 mg/dL High 15-45 [facility] Comment on above: Order Comment: Comme nt TUBE 3 Result Comment: PERF ORMED BY: [place] [address] PATHOLOGIST CREATIVE SERVICES COORDINATOR JUNIOR GREEN M.D. Performed By: #### C SF GLU, CSFCCDIFF, CSF TP #2, CSFCCDIFF #2, CSF TP, CSF GLU #2 #### [facility] [address] [place] [address] [place] Total Protein, Spinal Fluido n 03-26-2023 Total Protein, Spinal Fluid 71 mg/dL High [facility] Comment on above: Order Comment: Comme nt TUBE 1 Result Comment: PERF ORMED BY: [place] [address] PATHOLOGIST CREATIVE SERVICES COORDINATOR JUNIOR GREEN M.D. Performed By: #### C SF GLU, CSFCCDIFF, CSF TP #2, CSFCCDIFF #2, CSF TP, CSF GLU #2 #### [address] Follow-Upon 03-24-2023 Follow-Up [id number] Delicia Serrano 1980 F Date Provider Department Center 03/24/2023 CARLOS ROWE PAIN Medical Pavi Family History [...] Father's Sister Father's Brother Brother Level of Service:58013 [place] OFFICE/OUTPATIENT ESTABLISHED MOD MDM 30 MIN (GC) Reason for Visit and Comments: Follow-up [419177] - C7-T1 INTERLAMINAR EPIDURAL STEROID INJECTION 60% pain relief Normal [facility] HPon 03-24-2023 Pain Medicine Medical [address] [address] Date: 03/24/23 Referral Source: No ref. 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 Normal [facility] 37on 03-23-2023 37 - continue current d ose of methotrexate, increase folic acid to twice a day - increase mobic to twice daily if needed for sever pain - do labs ( cbc and CMP ) sometime before your next visit Normal [facility] Follow-Upon 03-23-2023 Follow-Up [id number] Delicia Serrano 1980 F Date Provider Department Center 03/23/2023 3554-[facility] RHEUM [facility] Family History Problem [...] Father's Sister Father's Brother Brother Level of Service:[address]2728 [place] OFFICE/OUTPATIENT ESTABLISHED MOD MDM 30 MIN Reason for Visit and Comments: Follow-up [674264] Normal [facility] MR LUMBAR SPINE W AND WO CON [...] L5 nerve roots. Electronically signed: Krishna Magana. 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 20 tablet 0 vzhfqdt-rzzeopabeofyn-lafy eine (Excedrin Extra Strength) 250-250-65 mg tablet [...] OneTouch Ultra2 Meter misc See administration instructions. potassium chloride CR (Klor-Con) [...] bedtime. No c (more content not included)... [facility] 02-12-2023 ------ -- Attestation signed by Carlos [...] Cancer Maternal Grandfather Dominick Diabetes Maternal Grandfather [place] Stroke Maternal Grandfather Dominick Arthritis Maternal Grandmother [...] no active Hospital Problems. VAMSI C7-T[address] [facility] POCT GLUCOSE METER UNSOLICIT ED RESULTSon 02-12-2023 Glucose [Mass/Vol] 109 mg/dL High 70-105 [facility] Comment on above: Order Comment: Waive d Testing in the ED is performed under the ED CLIA certificate #[id number]. Result Comment: [email or web address] Performed By: #### L [id number] #### [facility] (BEAKER) [address] [place] [address] A1C with Estimated Average G shaquille 02-11-2023 Glucose [Mass/Vol] 128 mg/dL Normal [facility] Comment on above: Result Comment: PERF ORMED BY: [facility] [address] [place] [address] PATHOLOGIST CREATIVE SERVICES COORDINATOR JUNIOR GREEN M.D. Performed By: #### L IPID, A1C WT eA ####[place] [id number] [place] [address] [facility] HbA1c (Bld) [Mass fraction] 6.1 % High 4.3-5.6 [facility] Comment on above: Result Comment: Incr eased risk for diabetes: 5.7 - 6.4 diabetes: >6.4 glycemic control for adults with diabetes: <7.0 Performed By: #### L IPID, A1C WT eA ####[facility] [address] [place] [address] [facility] Alanine aminotransferase [En zymatic activity/volume] in Serum or PlasmaOrdered By: Mariana Cortes on 02-11-2023 ALT [Catalytic activity/Vol] 16 U/L 7-52 [facility] Albumin [Mass/volume] in Ser um or PlasmaOrdered By: Mariana Cortes on 02-11-2023 Albumin [Mass/Vol] 3.6 g/dL 2.9-4.4 [facility] Albumin [Mass/volume] in Ser um or Plasma by Bromocresol green (BCG) dye binding methoOrdered By: Mariana Cortes on 02-11-2023 Albumin BCG dye [Mass/Vol] 4.2 g/dL 3.5-5.7 [facility] Alkaline phosphatase [Enzyma tic activity/volume] in Serum or PlasmaOrdered By: [facility] lex on 02-11-2023 ALP [Catalytic activity/Vol] 65 U/L 34-104 [facility] Aspartate aminotransferase [ Enzymatic activity/volume] in Serum or PlasmaOrdered By: [facility] trey on 02-11-2023 AST [Catalytic activity/Vol] 15 U/L 13-39 [facility] Basophils Auto (Bld) [#/Vol] Ordered By: [facility] trey on 02-11-2023 Basophils (Bld) [#/Vol] 0.1 10*3/uL 0.0-0.2 [facility] Basophils/100 WBC Auto (Bld) Ordered By: [facility] trey on 02-11-2023 Basophils/100 WBC (Bld) 0.8 % . [facility] Bilirubin.total [Mass/volume ] in Serum or PlasmaOrdered By: erinn trey on 02-11-2023 Bilirubin [Mass/Vol] 0.4 mg/dL 0.3-1.0 [facility] Calcium [Mass/volume] in Ser um or PlasmaOrdered By: [facility] trey on 02-11-2023 Calcium [Mass/Vol] 8.9 mg/dL 8.6-10.3 [facility] Carbon dioxide, total [Moles /volume] in Serum or PlasmaOrdered By: erinn trey on 02-11-2023 CO2 [Moles/Vol] 23.6 mmol/L 21.0-31.0 [facility] Chloride [Moles/volume] in S gopal or PlasmaOrdered By: [facility] tery on 02-11-2023 Chloride [Moles/Vol] 109 mmol/L 98-107 [facility] Cholesterol [Mass/volume] in Serum or PlasmaOrdered By: Jenny Swartz on 02-11-2023 Cholesterol [Mass/Vol] 177 mg/dL 140-200 [facility] Comment on above: Chol less than 200 m g/dl low riskChol 201-239 mg/dl borderline riskChol 240 mg/dl and greater high risk Cholesterol in LDL Calc [Mas s/Vol]Ordered By: Jenny Swartz on 02-11-2023 Cholesterol in LDL [Mass/Vol] 103 mg/dL 0-100 [facility] Comment on above: LDL ATP III CLASSIFI CATIONLDL less than 100 mg/dL OptimalLDL 100-129 mg/dL Near or above optimalLDL 130-159 mg/dL Borderline highLDL 160-189 mg/dL HighLDL greater than 189 mg/dL Very high Cholesterol in VLDL Calc [Ma ss/Vol]Ordered By: Jenny Swartz on 02-11-2023 Cholesterol in VLDL [Mass/Vol] 41 mg/dL [facility] Complete Blood Count Auto Di ffon 02-11-2023 Basophils (Bld) [#/Vol] 0.1 10*3/uL Normal 0.0-0.2 [facility] Comment on above: Result Comment: PERF ORMED BY: [facility] [address] [place] [address] PATHOLOGIST CREATIVE SERVICES COORDINATOR JUNIOR GREEN M.D. Performed By: #### K APPA, SPE, NORMAN SERUM ####[facility] ,#### CBC ####[place] [id number] [place] Basophils/100 WBC (Bld) 0.8 % Normal . [facility] Comment on above: Performed By: #### K APPA, SPE, NORMAN SERUM ####[facility] ,#### CBC ####[place] [id number] [place] Eosinophils (Bld) [#/Vol] 0.2 10*3/uL Normal 0.0-0.45 [facility] Comment on above: Performed By: #### K APPA, SPE, NORMAN SERUM ####[facility] ,#### CBC ####[place] [id number] [place] Eosinophils/100 WBC (Bld) 1.8 % Normal . [facility] Comment on above: Performed By: #### K APPA, SPE, NORMAN SERUM ####[facility] ,#### CBC ####[address] Erythrocyte distribution width (RBC) [Ratio] 14.2 % Normal 11.9-15.3 [facility] Comment on above: Performed By: #### K APPA, SPE, NORMAN SERUM ####[facility] ,#### CBC ####[address] Hematocrit (Bld) [Volume fraction] 37.5 % Normal 34.0-46.4 [facility] Comment on above: Performed By: #### K APPA, SPE, NORMAN SERUM ####[facility] ,#### CBC ####[address] Hemoglobin (Bld) [Mass/Vol] 12.6 g/dL Normal 11.8-15.4 [facility] Comment on above: Performed By: #### K APPA, SPE, NORMAN SERUM ####[facility] ,#### CBC ####[address] Lymphocytes (Bld) [#/Vol] 3.3 10*3/uL Normal 1.00-4.8 [facility] Comment on above: Performed By: #### K APPA, SPE, NORMAN SERUM ####[facility] ,#### CBC ####[address] Lymphocytes/100 WBC (Bld) 30.0 % Normal . [facility] Comment on above: Performed By: #### K APPA, SPE, NORMAN SERUM ####[facility] ,#### CBC ####[address] MCH (RBC) [Entitic mass] 29.0 pg Normal 24.7-34.3 [facility] Comment on above: Performed By: #### K APPA, SPE, NORMAN SERUM ####[facility] ,#### CBC ####[address] MCV (RBC) [Entitic vol] 86.3 fL Normal 80-100 [facility] Comment on above: Performed By: #### K APPA, SPE, NORMAN SERUM ####[facility] ,#### CBC ####[address] Mean Corpuscular HGB Conc 33.6 g/dL Normal 32.0-35.0 [facility] Comment on above: Performed By: #### K APPA, SPE, NORMAN SERUM ####[facility] ,#### CBC ####[address] Monocytes (Bld) [#/Vol] 0.4 10*3/uL Normal 0.0-0.8 [facility] Comment on above: Performed By: #### K APPA, SPE, NORMAN SERUM ####[facility] ,#### CBC ####[address] Monocytes/100 WBC (Bld) 4.0 % Normal . [facility] Comment on above: Performed By: #### K APPA, SPE, NORMAN SERUM ####[facility] ,#### CBC ####[address] Neutrophils (Bld) [#/Vol] 7.0 10*3/uL Normal 1.8-7.7 [facility] Comment on above: Performed By: #### K APPA, SPE, NORMAN SERUM ####[facility] ,#### CBC ####[address] Neutrophils/100 WBC (Bld) 63.4 % Normal . [facility] Comment on above: Performed By: #### K APPA, SPE, NORMAN SERUM ####[facility] ,#### CBC ####[address] NRBC% 0.1 /100{WBC} Normal 0-0.5 [facility] Comment on above: Performed By: #### K APPA, SPE, NORMAN SERUM ####[facility] ,#### CBC ####[address] Platelet mean volume (Bld) [Entitic vol] 6.4 fL Normal 6.3-10.7 [facility] Comment on above: Performed By: #### K APPA, SPE, NORMAN SERUM ####[facility] ,#### CBC ####[address] Platelets (Bld) [#/Vol] 388 10*3/uL Normal 150-450 [facility] Comment on above: Performed By: #### K APPA, SPE, NORMAN SERUM ####[facility] ,#### CBC ####[address] RBC (Bld) [#/Vol] 4.35 10*6/uL Normal 3.60-5.00 [facility] Comment on above: Performed By: #### K APPA, SPE, NORMAN SERUM ####[facility] ,#### CBC ####[address] WBC (Bld) [#/Vol] 11.1 10*3/uL Normal 3.8-11.6 [facility] Comment on above: Performed By: #### K APPA, SPE, NORMAN SERUM ####[facility] ,#### CBC ####[place] [id number] [facility] Comprehensive Metabolic Pane raimundo 02-11-2023 Albumin [Mass/Vol] 4.2 g/dL Normal 3.5-5.7 [facility] Comment on above: Performed By: #### F ER, [id number], FE and TIBC, CMP ####[place] [id number] [facility] Albumin/Globulin [Mass ratio] 1.8 {ratio} Normal [facility] Comment on above: Performed By: #### F ER, [id number], FE and TIBC, CMP ####[address] ALP [Catalytic activity/Vol] 65 U/L Normal 34-104 [facility] Comment on above: Performed By: #### F ER, [id number], FE and TIBC, CMP ####[address] ALT [Catalytic activity/Vol] 16 U/L Normal 7-52 [facility] Comment on above: Performed By: #### F ER, [id number], FE and TIBC, CMP ####[address] Anion gap [Moles/Vol] 13.5 mmol/L Normal 6.0-15.0 [facility] Comment on above: Performed By: #### F ER, [id number], FE and TIBC, CMP ####[address] AST [Catalytic activity/Vol] 15 U/L Normal 13-39 [facility] Comment on above: Performed By: #### F ER, [id number], FE and TIBC, CMP ####[address] Bilirubin [Mass/Vol] 0.4 mg/dL Normal 0.3-1.0 [facility] Comment on above: Performed By: #### F ER, [id number], FE and TIBC, CMP ####[address] Calcium [Mass/Vol] 8.9 mg/dL Normal 8.6-10.3 [facility] Comment on above: Performed By: #### F ER, [id number], FE and TIBC, CMP ####[place] [id number] [facility] Chloride [Moles/Vol] 109 mmol/L High 98-107 [facility] Comment on above: Performed By: #### F ER, [id number], FE and TIBC, CMP ####[address] CO2 [Moles/Vol] 23.6 mmol/L Normal 21.0-31.0 [facility] Comment on above: Performed By: #### F ER, [id number], FE and TIBC, CMP ####[address] Creatinine [Mass/Vol] 0.93 mg/dL Normal 0.60-1.20 [facility] Comment on above: Performed By: #### F ER, [id number], FE and TIBC, CMP ####[address] Creatinine Clr Calc Pharmacy 91.82 [facility] Comment on above: Performed By: #### F ER, [id number], FE and TIBC, CMP ####[address] GFR/1.73 sq M.predicted MDRD (S/P/Bld) [Vol rate/Area] mL/min/{1.73_m2} [facility] Comment on above: Performed By: #### F ER, [id number], FE and TIBC, CMP ####[address] Globulin (S) [Mass/Vol] 2.4 g/dL [facility] Comment on above: Performed By: #### F ER, [id number], FE and TIBC, CMP ####[address] [address] [facility] Glucose [Mass/Vol] 85 mg/dL Normal 70-100 [facility] Comment on above: Result Comment: [place] Glucose Reference Range is dependent on time and content of last meal. Glucose of more than 200 mg/dL in a nonstressed, ambulatory subject supports the diagnosis of Diabetes Mellitus. ADA recommended reference range Performed By: #### F ER, [id number], FE and TIBC, CMP ####[address] [address] [facility] Potassium [Moles/Vol] 4.1 mmol/L Normal 3.5-5.1 [facility] Comment on above: Performed By: #### F ER, [id number], FE and TIBC, CMP ####[place] [id number] [facility] Protein [Mass/Vol] 6.6 g/dL Normal 6.4-8.9 [facility] Comment on above: Performed By: #### F ER, [id number], FE and TIBC, CMP ####[place] [address] [facility] Sodium [Moles/Vol] 142 mmol/L Normal 136-145 [facility] Comment on above: Performed By: #### F ER, [id number], FE and TIBC, CMP ####[place] [address] [facility] Urea nitrogen [Mass/Vol] 21 mg/dL Normal 7-25 [facility] Comment on above: Performed By: #### F ER, [id number], FE and TIBC, CMP ####[place] [id number] [facility] Creatinine [Mass/volume] in Serum or PlasmaOrdered By: Mariana Cortes on 02-11-2023 Creatinine [Mass/Vol] 0.93 mg/dL 0.60-1.20 [facility] Eosinophils Auto (Bld) [#/Vo l]Ordered By: Mherinn Cortes on 02-11-2023 Eosinophils (Bld) [#/Vol] 0.2 10*3/uL 0.0-0.45 [facility] Eosinophils/100 WBC Auto (Bl d)Ordered By: erinn Cuellartrey on 02-11-2023 Eosinophils/100 WBC (Bld) 1.8 % . [facility] Erythrocyte distribution wid th Auto (RBC) [Ratio]Ordered By: erinn Cuellartrey on 02-11-2023 Erythrocyte distribution width (RBC) [Ratio] 14.2 % 11.9-15.3 [facility] Ferritinon 02-11-2023 Ferritin [Mass/Vol] 72.5 ng/mL Normal 11.0-306.8 [facility] Comment on above: Performed By: #### F ER, [id number], FE and TIBC, CMP ####[facility] [id number] Ferritin [Mass/volume] in Se rum or PlasmaOrdered By: erinn Cuellartrey on 02-11-2023 Ferritin [Mass/Vol] 72.5 ng/mL 11.0-306.8 [facility] Folate [Mass/volume] in Seru m or PlasmaOrdered By: erinn Cuellarnj on 02-11-2023 Folate [Mass/Vol] 28.0 ng/mL >5.9 [facility] Comment on above: Folate reference ran ge: >5.9 ng/mlThe WHO technical consultation on folate and vitamin [id number] has determined that folate concentrations lessthan 4 ng/ml are considered deficient. Free K+L LT Chains, Qn, Son 02-11-2023 Free [place] Light Chains, S 15.3 mg/L Normal 3.3-19.4 [facility] Comment on above: Performed By: #### C SF GLU, CSFCCDIFF, CSF TP #2, CSFCCDIFF #2, CSF TP, CSF GLU #2 #### [facility] [address] Free [place] Light Chains, S 11.3 mg/L Normal 5.7-26.3 [facility] Comment on above: Performed By: #### C SF GLU, CSFCCDIFF, CSF TP #2, CSFCCDIFF #2, CSF TP, CSF GLU #2 #### [address] [place]/Lambda Ratio, S 1.35 Normal 0.26-1.65 [facility] Comment on above: Result Comment: Perf ormed at: CB - [facility] [address] [id number] Life Skills Coordinator Volunteer: Chato Rincon PhD, Phone: [phone] PERFORMED BY: [place] [address] PATHOLOGIST CREATIVE SERVICES COORDINATOR JUNIOR GREEN M.D. Performed By: #### C SF GLU, CSFCCDIFF, CSF TP #2, CSFCCDIFF #2, CSF TP, CSF GLU #2 #### [address] Globulin Calc (S) [Mass/Vol] Ordered By: Mariana Cortes on 02-11-2023 Globulin (S) [Mass/Vol] 2.4 g/dL [facility] Glucose [Mass/volume] in Ser um or PlasmaOrdered By: Mariana Cortes on 02-11-2023 Glucose [Mass/Vol] 85 mg/dL 70-100 [facility] Comment on above: ADA recommended refe rence rangeRandom Glucose Reference Range is dependent on time and content of last meal. Glucose of more than 200 mg/dL in a nonstressed, ambulatory subject supports the diagnosis of Diabetes Mellitus. Glucose mean value [Mass/vol ume] in Blood Estimated from glycated hemoglobinOrdered By: Jenny Swartz on 02-11-2023 Average glucose Estimated from glycated hemoglobin (Bld) [Mass/Vol] 128 mg/dL [facility] Hematocrit Auto (Bld) [Volum e fraction]Ordered By: Mariana Cortes on 02-11-2023 Hematocrit (Bld) [Volume fraction] 37.5 % 34.0-46.4 [facility] Hemoglobin A1c percentageOrd ered By: Jenny Swartz on 02-11-2023 HbA1c (Bld) [Mass fraction] 6.1 % 4.3-5.6 [facility] Comment on above: Increased risk for erinn foremantes: 5.7 - 6.4diabetes: >6.4glycemic control for adults with diabetes: <7.0 Hemoglobin [Mass/volume] in BloodOrdered By: erinn Cortes on 02-11-2023 Hemoglobin (Bld) [Mass/Vol] 12.6 g/dL 11.8-15.4 [facility] IgA [Mass/volume] in Serum o r PlasmaOrdered By: [facility] IvetteMaylex on 02-11-2023 IgA [Mass/Vol] 94 mg/dL 87-352 [facility] IgG [Mass/volume] in Serum o r PlasmaOrdered By: [facility] Sophia on 02-11-2023 IgG [Mass/Vol] 726 mg/dL 586-1602 [facility] IgM [Mass/volume] in Serum o r PlasmaOrdered By: [facility] Sophia on 02-11-2023 IgM [Mass/Vol] 117 mg/dL 26-217 [facility] Comment on above: Performed at: [address] Director: Chato Rincon PhD, Phone: [phone] Immunofixation,Serumon 02-11 Immunofixation, Serum Normal . [facility] Comment on above: Result Comment: No m onoclonality detected. Performed By: #### K APPA, SPE, NORMAN SERUM ####[facility] ,#### CBC ####[facility] [address] [place] [address] [place] Immunoglobulin A, Serum 94 mg/dL Normal 87-352 [facility] Comment on above: Performed By: #### K APPA, SPE, NORMAN SERUM ####[facility] ,#### CBC ####[facility] [address] [place] [address] [place] Immunoglobulin G 726 mg/dL Normal 586-1602 [facility] Comment on above: Performed By: #### K APPA, SPE, NORMAN SERUM ####[facility] ,#### CBC ####[facility] Immunoglobulin M, Serum 117 mg/dL Normal 26-217 [facility] Comment on above: Result Comment: Perf ormed at: - [facility] [place] [address] [place] [id number] Life Skills Coordinator Volunteer: Chato Rincon PhD, Phone: [phone] Performed By: #### K APPA, SPE, NORMAN SERUM ####[facility] ,#### CBC ####[facility] Immunoglobulin light chains. kappa.free [Mass/volume] in SerumOrdered By: Mariana Cortes on 02-11-2023 Immunoglobulin light chains.kappa.free (S) [Mass/Vol] 15.3 mg/L 3.3-19.4 [facility] Immunoglobulin light chains. kappa.free/Immunoglobulin light chains.lambda.free [MassOrdered By: Mariana Cortes on 02-11-2023 Immunoglobulin light chains.kappa.free/Immu noglobulin light chains.lambda.free (S) [Mass ratio] 1.35 0.26-1.65 [facility] Comment on above: Performed at: - [facility] [address] [id number] Director: Chato Rincon PhD, Phone: [phone] Immunoglobulin light chains. lambda.free [Mass/volume] in Serum or PlasmaOrdered By: Mariana Cortes on 02-11-2023 Immunoglobulin light chains.lambda.free [Mass/Vol] 11.3 mg/L 5.7-26.3 [facility] Iron [Mass/volume] in Serum or PlasmaOrdered By: Mariana Cortes on 02-11-2023 Iron [Mass/Vol] 69 ug/dL 50-212 [facility] Iron and TIBC Profileon 01-15 % Iron Saturation 20.6 % Normal 20-50 [facility] Comment on above: Performed By: #### F ER, [id number], FE and TIBC, CMP ####[facility] [id number] [place] [address] [facility] Iron [Mass/Vol] 69 ug/dL Normal 50-212 [facility] Comment on above: Performed By: #### F ER, [id number], FE and TIBC, CMP ####[facility] [address] [place] [address] [facility] Total Iron Binding Capacity 335 ug/dL Normal 255-450 [facility] Comment on above: Performed By: #### F ER, [id number], FE and TIBC, CMP ####[place] [id number] [place] [address] [facility] Transferrin [Mass/Vol] 239 mg/dL Normal 203-362 [facility] Comment on above: Performed By: #### F ER, [id number], FE and TIBC, CMP ####[facility] [id number] [place] [address] [facility] Iron binding capacity [Mass/ volume] in Serum or PlasmaOrdered By: Mariana Cortes on 02-11-2023 Iron binding capacity [Mass/Vol] 335 ug/dL 255-450 [facility] Iron saturation [Mass Fracti on] in Serum or PlasmaOrdered By: Mariana Cortes on 02-11-2023 Iron saturation [Mass fraction] 20.6 % 20-50 [facility] Leukocytes [#/volume] correc [place]in[place] for nucleated erythrocytes in Blood by Automated counOrdered By: Mariana Cortes on 02-11-2023 WBC corrected for nucl RBC Auto (Bld) [#/Vol] 11.1 10*3/uL 3.8-11.6 [facility] Lipid Panelon 02-11-2023 Cholesterol [Mass/Vol] 177 mg/dL Normal 140-200 [facility] Comment on above: Result Comment: Chol less than 200 mg/dl low risk Chol 201-239 mg/dl borderline risk Chol 240 mg/dl and greater high risk Performed By: #### L IPID, [address] eA ####[place] [id number] [place] [id number] [facility] Cholesterol in HDL [Mass/Vol] 33 mg/dL Normal 23-92 [facility] Comment on above: Result Comment: HDL CHOL ATP-III CLASSIFICATION Cardiovascular Risk HDL > or equal to 60 mg/dL LOW HDL < 40 mg/dL HIGH Performed By: #### L IPID, [address] eA ####[address] Cholesterol.total/Chol esterol in HDL [Mass ratio] 5.4 {ratio} Normal <5.0 [facility] Comment on above: Result Comment: PERF ORMED BY: [facility] [address] [place] [address] PATHOLOGIST CREATIVE SERVICES COORDINATOR JUNIOR GREEN M.D. Performed By: #### L IPID, [address] eA ####[address] LDL Cholesterol,Calculated 103 mg/dL High 0-100 [facility] Comment on above: Result Comment: LDL ATP III CLASSIFICATION LDL less than 100 mg/dL Optimal LDL 100-129 mg/dL Near or above optimal LDL 130-159 mg/dL Borderline high LDL 160-189 mg/dL High LDL greater than 189 mg/dL Very high Performed By: #### L IPID, [address] eA ####[address] Triglyceride w/Reflex 207 mg/dL High 0-149 [facility] Comment on above: Result Comment: TRIG ATP III CLASSIFICATION TRIG less than 150 mg/dL Normal TRIG 150-199 mg/dL Borderline high TRIG 200-500 mg/dL High TRIG greater than 500 mg/dL Very high Standard traceable to the Center for Disease Conrtrol and Prevention (CDC) test method. Performed By: #### L IPID, [address] eA ####[place] [id number] [place] [id number] [facility] VLDL CHOLESTEROL 41 mg/dL Normal [facility] Comment on above: Performed By: #### L IPID, [address] eA ####[facility] [id number] [place] [id number] [facility] Lymphocytes Auto (Bld) [#/Vo l]Ordered By: Mariana Cortes on 02-11-2023 Lymphocytes (Bld) [#/Vol] 3.3 10*3/uL 1.00-4.8 [facility] Lymphocytes/100 WBC Auto (Bl d)Ordered By: Mariana Cortes on 02-11-2023 Lymphocytes/100 WBC (Bld) 30.0 % . [facility] MCH Auto (RBC) [Entitic mass ]Ordered By: Mariana Cortes on 02-11-2023 MCH (RBC) [Entitic mass] 29.0 pg 24.7-34.3 [facility] MCHC Auto (RBC) [Mass/Vol]Or dered By: Mariana Cortes on 02-11-2023 MCHC (RBC) [Mass/Vol] 33.6 g/dL 32.0-35.0 [facility] MCV Auto (RBC) [Entitic vol] Ordered By: Mariana Cortes on 02-11-2023 MCV (RBC) [Entitic vol] 86.3 fL 80-100 [facility] Monocytes Auto (Bld) [#/Vol] Ordered By: Mariana Cortes on 02-11-2023 Monocytes (Bld) [#/Vol] 0.4 10*3/uL 0.0-0.8 [facility] Monocytes/100 WBC Auto (Bld) Ordered By: Mariana Cortes on 02-11-2023 Monocytes/100 WBC (Bld) 4.0 % . [facility] Neutrophils Auto (Bld) [#/Vo l]Ordered By: Mariana Cortes on 02-11-2023 Neutrophils (Bld) [#/Vol] 7.0 10*3/uL 1.8-7.7 [facility] Neutrophils/100 WBC Auto (Bl d)Ordered By: Mariana Cortes on 02-11-2023 Neutrophils/100 WBC (Bld) 63.4 % . [facility] No Panel InformationOrdered By: Mariana Cortes on 02-11-2023 Protein Electrophoresis M-Antwan Not observed g/dL Not Observed [facility] Protein Electrophoresis Note See comment . [facility] Comment on above: Protein electrophore sis scan will follow via computer,mail, or corporate trainer delivery. Serum Immunofixation See comment . [facility] Comment on above: No monoclonality det ected. Estimated GFR (CKD-EPI) > 60.0 mL/Min [facility] Creatinine Clearance (Chem 91.82 [facility] Nucleated erythrocytes [Pres ence] in Blood by Automated countOrdered By: erinn Cortes on 02-11-2023 Nucleated RBC Auto Ql (Bld) 0.1 /100{WBC} 0-0.5 [facility] Platelet mean volume Auto (B ld) [Entitic vol]Ordered By: erinn Cortes on 02-11-2023 Platelet mean volume (Bld) [Entitic vol] 6.4 fL 6.3-10.7 [facility] Platelets Auto (Bld) [#/Vol] Ordered By: erinn Cortes on 02-11-2023 Platelets (Bld) [#/Vol] 388 10*3/uL 150-450 [facility] Potassium [Moles/volume] in Serum or PlasmaOrdered By: Mariana Cortes on 02-11-2023 Potassium [Moles/Vol] 4.1 mmol/L 3.5-5.1 [facility] Protein Electrophoresis, Ser umon 02-11-2023 Albumin [Mass/Vol] 3.6 g/dL Normal 2.9-4.4 [facility] Comment on above: Performed By: #### K APPA, SPE, NORMAN SERUM ####[facility] ,#### CBC ####[facility] Albumin/Globulin [Mass ratio] 1.2 {ratio} Normal 0.7-1.7 [facility] Comment on above: Performed By: #### K APPA, SPE, NORMAN SERUM ####[facility] ,#### CBC ####[address] Aiujt-5-Ugynacbo 0.3 g/dL Normal 0.0-0.4 [facility] Comment on above: Performed By: #### K APPA, SPE, NORMAN SERUM ####[facility] ,#### CBC ####[address] Baykm-1-Zreywqay 0.9 g/dL Normal 0.4-1.0 [facility] Comment on above: Performed By: #### K APPA, SPE, NORMAN SERUM ####[facility] ,#### CBC ####[address] Beta Globulin 1.1 g/dL Normal 0.7-1.3 [facility] Comment on above: Performed By: #### K APPA, SPE, NORMAN SERUM ####[facility] ,#### CBC ####[address] Gamma Globulin 0.8 g/dL Normal 0.4-1.8 [facility] Comment on above: Performed By: #### K APPA, SPE, NORMAN SERUM ####[facility] ,#### CBC ####[place] [address] [place] Globulin (S) [Mass/Vol] 3.0 g/dL Normal 2.2-3.9 [facility] Comment on above: Performed By: #### K APPA, SPE, NORMAN SERUM ####[facility] ,#### CBC ####[address] M-Antwan Not Observed Normal Not Observed [facility] Comment on above: Performed By: #### K APPA, SPE, NORMAN SERUM ####[facility] ,#### CBC ####[facility] [place] [address] [facility] Protein [Mass/Vol] 6.6 g/dL Normal 6.0-8.5 [facility] Comment on above: Performed By: #### K APPA, SPE, NORMAN SERUM ####[facility] ,#### CBC ####[facility] [place] [address] [facility] SPE-Note Normal . [facility] Comment on above: Result Comment: Prot ein electrophoresis scan will follow via computer, mail, or corporate trainer delivery. Performed By: #### K APPA, SPE, NORMAN SERUM ####[facility] ,#### CBC ####[place] [id number] [facility] Protein [Mass/volume] in Ser um or PlasmaOrdered By: Mariana Cortes on 02-11-2023 Protein [Mass/Vol] 6.6 g/dL 6.0-8.5 [facility] Protein [Mass/Vol] 6.6 g/dL 6.4-8.9 [facility] RBC Auto (Bld) [#/Vol]Ordere d By: Mariana Cortes on 02-11-2023 RBC (Bld) [#/Vol] 4.35 10*6/uL 3.60-5.00 [facility] Serum globulin measurement ( mass/volume)Ordered By: Mariana Cortes on 02-11-2023 Globulin (S) [Mass/Vol] 3.0 g/dL 2.2-3.9 [facility] Serum or plasma albumin/glob ulin mass ratioOrdered By: Mariana Cortes on 02-11-2023 Albumin/Globulin [Mass ratio] 1.2 {ratio} 0.7-1.7 [facility] Albumin/Globulin [Mass ratio] 1.8 {ratio} [facility] Serum or plasma alpha 1 glob ulin measurement by electrophoresis (mass/volume)Ordered By: Mariana Cortes on 02-11-2023 Alpha 1 globulin Elph [Mass/Vol] 0.3 g/dL 0.0-0.4 [facility] Serum or plasma alpha 2 glob ulin measurement by electrophoresis (mass/volume)Ordered By: Mariana Cortes on 02-11-2023 Alpha 2 globulin Elph [Mass/Vol] 0.9 g/dL 0.4-1.0 [facility] Serum or plasma anion gap de terminationOrdered By: Mariana Cortes on 02-11-2023 Anion gap [Moles/Vol] 13.5 mmol/L 6.0-15.0 [facility] Serum or plasma beta globuli n measurement by electrophoresis (mass/volume)Ordered By: Mariana Cortes on 02-11-2023 Beta globulin Elph [Mass/Vol] 1.1 g/dL 0.7-1.3 [facility] Serum or plasma gamma globul in measurement by electrophoresis (mass/volume)Ordered By: Mariana Cortes on 02-11-2023 Gamma globulin Elph [Mass/Vol] 0.8 g/dL 0.4-1.8 [facility] Serum or plasma high density lipoprotein (HDL) cholesterol measurementOrdered By: Jenny Swartz on 02-11-2023 Cholesterol in HDL [Mass/Vol] 33 mg/dL 23-92 [facility] Comment on above: HDL CHOL ATP-III CLA SSIFICATION Cardiovascular RiskHDL > or equal to 60 mg/dL LOWHDL < 40 mg/dL HIGH Serum or plasma total choles terol/high density lipoprotein (HDL) cholesterol mass ratOrdered By: Jenny Swartz on 02-11-2023 Cholesterol.total/Chol esterol in HDL [Mass ratio] 5.4 {ratio} <5.0 [facility] Sodium [Moles/volume] in Ser um or PlasmaOrdered By: Mariana Cortes on 02-11-2023 Sodium [Moles/Vol] 142 mmol/L 136-145 [facility] Transferrin [Mass/volume] in Serum or PlasmaOrdered By: Mariana Cortes on 02-11-2023 Transferrin [Mass/Vol] 239 mg/dL 203-362 [facility] Triglyceride [Mass/volume] i n Serum or PlasmaOrdered By: Jenny Swartz on 02-11-2023 Triglyceride [Mass/Vol] 207 mg/dL 0-149 [facility] Comment on above: TRIG ATP III CLASSIF ICATIONTRIG less than 150 mg/dL NormalTRIG 150-199 mg/dL Borderline highTRIG 200-500 mg/dL High TRIG greater than 500 mg/dL Very highStandard traceable to the Center for Disease Conrtrol and Prevention (CDC) test method. Urea nitrogen [Mass/volume] in Serum or PlasmaOrdered By: Mariana Cortes on 02-11-2023 Urea nitrogen [Mass/Vol] 21 mg/dL 7-25 [facility] Vit. B12/Folate Profileon Cobalamin (Vitamin B12) [Mass/Vol] 343 pg/mL Normal 180-914 [facility] Comment on above: Performed By: #### F ER, [id number], FE and TIBC, CMP ####[facility] [id number] [place] [id number] [facility] Folate 28.0 ng/mL Normal >5.9 [facility] Comment on above: Result Comment: Francesca te reference range: >5.9 ng/ml The WHO technical consultation on folate and vitamin b12 deficiencies has determined that folate concentrations less than 4 ng/ml are considered deficient. PERFORMED BY: [facility] [address] [place] [id number] PATHOLOGIST CREATIVE SERVICES COORDINATOR JUNIOR GREEN M.D. Performed By: #### F ER, [id number], FE and TIBC, CMP ####[facility] [id number] [place] [id number] [facility] Vitamin B12 ser/plasOrdered By: Mariana Cortes on 02-11-2023 Cobalamin (Vitamin B12) [Mass/Vol] 343 pg/mL 180-914 [facility] WBC Auto (Bld) [#/Vol]Ordere d By: Mariana Cortes on 02-11-2023 WBC (Bld) [#/Vol] 11.1 10*3/uL 3.8-11.6 [facility] 36on 02-09-20[address] Riley ballard Mailbox. Once signed mail to patient. Normal [facility] Letter (Out)on 02-09-2023 Letter (Out) [id number] Delicia Serrano 1980 Date Provider Department Center 02/09/2023 CHRISTIANNE LIPSCOMB [facility] RHEUM [facility] Family History Problem Relation Age of Onset [...] Son Daughter Father's Sister Father's Brother Brother [facility] Orders Onlyon 02-03-2023 Orders Only [id number] Delicia Serrano 1980 Provider Department Center 02/03/2023 CHRISTIANNE LIPSCOMB [facility] RHEUM [facility] Family History Problem Relation Age of Onset [...] Daughter Father's Sister Father's Brother Brother Normal [facility] Follow-Upon 02-02-2023 Follow-Up [id number] Delicia Serrano 1980 F Date Provider Department Center 02/02/2023 [id number], AYA [facility] R[facility] Family History Problem [...] Father's Sister Father's Brother Brother Level of Service:69977 [place] OFFICE/OUTPATIENT ESTABLISHED MOD MDM 30-39 MIN Reason for Visit and Comments: Follow-up [300082] - recheck after steroid treatment Normal [facility] URINALYSISon 02-02-2023 BILIRUBIN, TOTAL PRESENCE IN URINE Negative Normal Negative [facility] Comment on above: Performed By: #### L AB17 #### [facility] (BEAKER) [address] [place] [address] Clarity (U) Slightly Cloudy Abnormal Clear [facility] Comment on above: Performed By: #### L AB17 #### [facility] ([facility]) [address] [place] [address] Color (U) Yellow Normal Yellow [facility] Comment on above: Performed By: #### L AB17 #### [facility] ([facility]) [address] [place] [address] Glucose (U) [Mass/Vol] Negative Normal [facility] Comment on above: Performed By: #### L AB17 #### [facility] ([facility]) [address] [place] [address] HEMOGLOBIN PRESENCE IN URINE Negative Normal Negative [facility] Comment on above: Performed By: #### L AB17 #### [facility] ([facility] [address] [place] [address] Ketones Ql (U) Trace Abnormal Negative [facility] Comment on above: Performed By: #### L AB17 #### [facility] ([facility] [address] [place] [address] LEUKOCYTE ESTERASE PRESENCE IN URINE BY TEST STRIP Negative Normal Negative [facility] Comment on above: Performed By: #### L AB17 #### [facility] ([facility] [address] [place] [address] NITRITE PRESENCE IN URINE Negative Normal Negative [facility] Comment on above: Performed By: #### L AB17 #### [facility] ([facility] [address] [place] [address] pH (U) 6.0 [pH] Normal 5.0-8.0 [facility] Comment on above: Performed By: #### L AB17 #### [facility] ([facility] [address] [place] [address] Protein (U) [Mass/Vol] 30 mg/dL Abnormal Negative [facility] Comment on above: Performed By: #### L AB17 #### [facility] ([facility] [address] [place] [address] Specific gravity (U) [Rel density] 1.027 High 1.015-1.020 [facility] Comment on above: Performed By: #### L AB17 #### [facility] ([facility] [address] [place] [address] URINALYSIS MICROSCOPICon CALCIUM OXALATE CRYSTALS (#/HPF) IN URINE Many Abnormal None Seen [facility] Comment on above: Performed By: #### L AB17 #### [facility] ([facility] [address] [place] [address] CASTS IN URINE Present Abnormal None Seen [facility] Comment on above: Performed By: #### L AB17 #### [facility] ([facility] [address] [place] [address] CRYSTALS IN URINE Present Abnormal None Seen [facility] Comment on above: Performed By: #### L AB17 #### [facility] ([facility] [address] [place] [address] HYALINE CASTS /LPF IN URINE SEDIMENT BY MICROSCOPY 2 /LPF High <1 [facility] Comment on above: Performed By: #### L AB17 #### [facility] ([facility] [address] [place] [address] MUCUS (#/HPF) IN URINE SEDIMENT Many Abnormal None Seen, Occasional, Few [facility] Comment on above: Performed By: #### L AB17 #### [facility] ([facility] [address] [place] [address] RBC (#/HPF) IN URINE SEDIMENT 3-[address] [facility] Comment on above: Performed By: #### L AB17 #### [facility] ([facility] [address] [place] [address] SQUAMOUS EPITHELIAL CELLS (#/HPF) IN URINE SEDIMENT Many Abnormal None Seen, Occasional [facility] Comment on above: Performed By: #### L AB17 #### [facility] ([facility] [address] [place] [address] WBC (LEUKOCYTE) (#/HPF) IN URINE SEDIMENT 0-[address] [facility] Comment on above: Performed By: #### L AB17 #### [facility] ([facility] [address] [place] [address] YEAST, BUDDING (#/HPF) IN URINE Occasional Abnormal None Seen [facility] Comment on above: Performed By: #### L AB17 #### [facility] ([facility] [address] [place] [address] Office Visiton 01-08-2023 Follow-up visit [id number] Delicia Serrano 1980 F Date Provider Department [...] Father's Sister Father's Brother Brother Level of Service:70166 [place] OFFICE/OUTPATIENT NEW MODERATE MDM 45-59 MINUTES (GC) Reason for Visit and Comments: New Patient [632] - Neck and Low Back Pain Normal [facility] Follow-Upon 12-22-2022 Follow-Up [id number] Delicia Serrano 1980 F Date Provider Department Center 12/22/2022 Rex-[facility] RHEUM [facility] Family History Problem [...] Father's Sister Father's Brother Brother Level of Service:83296 [place] OFFICE/OUTPATIENT ESTABLISHED MOD MDM 30-39 MIN Reason for Visit and Comments: Follow-up [148689] Normal [facility] MR head/brain wo/w sueon MR head/brain wo/w con [facility] Main [address] [address] MRI Report Signed Patient: Delicia Serrano MR#: [id number] : 1980 Acct:[id number] Age/Sex: 42 / F ADM Date: 11/27/22 Loc: MR Room: Type: [facility] Attending Dr: Disha Dillard PA-C Copies [...] Felix Lawson M.D.11/27/2022 8:39 PM Dictation Location: [place] [address] Transcribed By: [facility] 11/27/222038 Dictated By: Felix Lawson II, MD 11/27/222030 Signed By: 11/27/222038 Normal [facility] XR pre/post mri xrayon 11-27 XR pre/post mri xray [facility] [place] [address] MRI Report Signed Patient: Delicia Serrano MR#: [id number] : 1980 Acct:[id number] Age/Sex: 42 / F ADM Date: 11/27/22 Loc: MR Room: Type: [facility] Attending Dr: Disha Dillard PA-C Copies to: Disha Dillard PA-C Ordering Provider: Disha Dillard PA-C Date of Service: 11/27/22 MR/MR cervical spine wo/w con: R42, R20.2, M79.10 ([id number]) XR/XR pre/post mri xray: R42, R20.2, M79.10 [...] is uncovertebral joint spurring bilaterally contributing to saxq-gi-naytekfw bilateral neural foraminal narrowing without significant spinal [...] is uncovertebral joint spurring bilaterally contributing to ivoc-dz-aqdxiqpe bilateral neural foraminal narrowing without significant spinal canal stenosis. This is unchanged. No cord compression or cord signal abnormality. No abnormal postcontrast enhancement. Incidental note is made of flattening of the pituitary within the sella. Impression dictated by: Felix Lawson M.D.11/27/2022 8:45 PM Dictation Location: [place] [address] Transcribed By: [facility] 11/27/222044 Dictated By: Felix Lawson II, MD 11/27/222038 Signed By: 11/27/222044 Normal [facility] CT abdomen pelvis w conon CT abdomen pelvis w con [facility] [place] [address] CT Scan Report Signed Patient: Delicia Serrano MR#: [id number] : 1980 Acct:[id number] Age/Sex: 42 / F ADM Date: 11/13/22 Loc: Room: [facility] Attending Dr: Nicki Duran APRN Copies to: Nicki Duran APRN Ordering Provider: Nicki Duran APRN Date of Service: 11/13/22 CT/CT chest w con: chest heaviness abdominal pain ([id number]) CT/CT abdomen pelvis w con: chest heaviness [...] nephrolithiasis. Impression dictated by: Moose Velazco Jr., DDeni11/13/2022 11:44 AM Dictation Location: [place] [address] Transcribed By: [facility] 11/13/22 1144 Dictated By: Moose Velazco Jr, DO 11/13/22 1136 Signed By: 11/13/22 1144 Normal [facility] Alanine aminotransferase [En zymatic activity/volume] in Serum or PlasmaOrdered By: Nicki Duran on 11-04-2022 ALT [Catalytic activity/Vol] 20 U/L 7-52 [facility] Albumin [Mass/volume] in Ser um or PlasmaOrdered By: Nicki Duran on 11-04-2022 Albumin [Mass/Vol] 3.6 g/dL 2.9-4.4 [facility] Albumin [Mass/volume] in Ser um or Plasma by Bromocresol green (BCG) dye binding methoOrdered By: Nicki Duran on 11-04-2022 Albumin BCG dye [Mass/Vol] 4.3 g/dL 3.5-5.7 [facility] Alkaline phosphatase [Enzyma tic activity/volume] in Serum or PlasmaOrdered By: Nicki Duran on 11-04-2022 ALP [Catalytic activity/Vol] 94 U/L 34-104 [facility] Aspartate aminotransferase [ Enzymatic activity/volume] in Serum or PlasmaOrdered By: Nicki Roger on 11-04-2022 AST [Catalytic activity/Vol] 15 U/L 13-39 [facility] Basophils Auto (Bld) [#/Vol] Ordered By: Nicki Quinnfrancoise on 11-04-2022 Basophils (Bld) [#/Vol] 0.1 10*3/uL 0.0-0.2 [facility] Basophils/100 WBC Auto (Bld) Ordered By: Nicki Roger on 11-04-2022 Basophils/100 WBC (Bld) 0.7 % . [facility] Bilirubin.total [Mass/volume ] in Serum or PlasmaOrdered By: Nicki Roger on 11-04-2022 Bilirubin [Mass/Vol] 0.3 mg/dL 0.3-1.0 [facility] Calcium [Mass/volume] in Ser um or PlasmaOrdered By: Nicki Roger on 11-04-2022 Calcium [Mass/Vol] 8.9 mg/dL 8.6-10.3 [facility] Carbon dioxide, total [Moles /volume] in Serum or PlasmaOrdered By: [facility] Kaifrancoise on 11-04-2022 CO2 [Moles/Vol] 23.8 mmol/L 21.0-31.0 [facility] Chloride [Moles/volume] in S gopal or PlasmaOrdered By: [facility] on 11-04-2022 Chloride [Moles/Vol] 110 mmol/L 98-107 [facility] Complete Blood Count Auto Di ffon 11-04-2022 Basophils (Bld) [#/Vol] 0.1 10*3/uL Normal 0.0-0.2 [facility] Comment on above: Result Comment: PERF ORMED BY: [facility] [address] [place] [address] PATHOLOGIST CREATIVE SERVICES COORDINATOR JUNIOR GREEN M.D. Performed By: #### C SF GLU, CSFCCDIFF, CSF TP #2, CSFCCDIFF #2, CSF TP, CSF GLU #2 #### [address] Basophils/100 WBC (Bld) 0.7 % Normal . [facility] Comment on above: Performed By: #### C SF GLU, CSFCCDIFF, CSF TP #2, CSFCCDIFF #2, CSF TP, CSF GLU #2 #### [facility] [address] Eosinophils (Bld) [#/Vol] 0.5 10*3/uL High 0.0-0.45 [facility] Comment on above: Performed By: #### C SF GLU, CSFCCDIFF, CSF TP #2, CSFCCDIFF #2, CSF TP, CSF GLU #2 #### [address] Eosinophils/100 WBC (Bld) 3.7 % Normal . [facility] Comment on above: Performed By: #### C SF GLU, CSFCCDIFF, CSF TP #2, CSFCCDIFF #2, CSF TP, CSF GLU #2 #### [address] Erythrocyte distribution width (RBC) [Ratio] 15.3 % Normal 11.9-15.3 [facility] Comment on above: Performed By: #### C SF GLU, CSFCCDIFF, CSF TP #2, CSFCCDIFF #2, CSF TP, CSF GLU #2 #### [address] Hematocrit (Bld) [Volume fraction] 40.8 % Normal 34.0-46.4 [facility] Comment on above: Performed By: #### C SF GLU, CSFCCDIFF, CSF TP #2, CSFCCDIFF #2, CSF TP, CSF GLU #2 #### [address] Hemoglobin (Bld) [Mass/Vol] 13.5 g/dL Normal 11.8-15.4 [facility] Comment on above: Performed By: #### C SF GLU, CSFCCDIFF, CSF TP #2, CSFCCDIFF #2, CSF TP, CSF GLU #2 #### [place] [id number] [place] Lymphocytes (Bld) [#/Vol] 4.0 10*3/uL Normal 1.00-4.8 [facility] Comment on above: Performed By: #### C SF GLU, CSFCCDIFF, CSF TP #2, CSFCCDIFF #2, CSF TP, CSF GLU #2 #### [address] Lymphocytes/100 WBC (Bld) 29.2 % Normal . [facility] Comment on above: Performed By: #### C SF GLU, CSFCCDIFF, CSF TP #2, CSFCCDIFF #2, CSF TP, CSF GLU #2 #### [address] MCH (RBC) [Entitic mass] 28.4 pg Normal 24.7-34.3 [facility] Comment on above: Performed By: #### C SF GLU, CSFCCDIFF, CSF TP #2, CSFCCDIFF #2, CSF TP, CSF GLU #2 #### [address] MCV (RBC) [Entitic vol] 85.7 fL Normal 80-100 [facility] Comment on above: Performed By: #### C SF GLU, CSFCCDIFF, CSF TP #2, CSFCCDIFF #2, CSF TP, CSF GLU #2 #### [address] Mean Corpuscular HGB Conc 33.1 g/dL Normal 32.0-35.0 [facility] Comment on above: Performed By: #### C SF GLU, CSFCCDIFF, CSF TP #2, CSFCCDIFF #2, CSF TP, CSF GLU #2 #### [address] Monocytes (Bld) [#/Vol] 0.7 10*3/uL Normal 0.0-0.8 [facility] Comment on above: Performed By: #### C SF GLU, CSFCCDIFF, CSF TP #2, CSFCCDIFF #2, CSF TP, CSF GLU #2 #### [place] [address] [place] Monocytes/100 WBC (Bld) 5.1 % Normal . [facility] Comment on above: Performed By: #### C SF GLU, CSFCCDIFF, CSF TP #2, CSFCCDIFF #2, CSF TP, CSF GLU #2 #### [place] [address] [place] Neutrophils (Bld) [#/Vol] 8.3 10*3/uL High 1.8-7.7 [facility] Comment on above: Performed By: #### C SF GLU, CSFCCDIFF, CSF TP #2, CSFCCDIFF #2, CSF TP, CSF GLU #2 #### [address] Neutrophils/100 WBC (Bld) 61.3 % Normal . [facility] Comment on above: Performed By: #### C SF GLU, CSFCCDIFF, CSF TP #2, CSFCCDIFF #2, CSF TP, CSF GLU #2 #### [place] [address] [place] NRBC% 0.2 /100{WBC} Normal 0-0.5 [facility] Comment on above: Performed By: #### C SF GLU, CSFCCDIFF, CSF TP #2, CSFCCDIFF #2, CSF TP, CSF GLU #2 #### [address] Platelet mean volume (Bld) [Entitic vol] 6.9 fL Normal 6.3-10.7 [facility] Comment on above: Performed By: #### C SF GLU, CSFCCDIFF, CSF TP #2, CSFCCDIFF #2, CSF TP, CSF GLU #2 #### [place] [address] [place] Platelets (Bld) [#/Vol] 385 10*3/uL Normal 150-450 [facility] Comment on above: Performed By: #### C SF GLU, CSFCCDIFF, CSF TP #2, CSFCCDIFF #2, CSF TP, CSF GLU #2 #### [facility] [address] RBC (Bld) [#/Vol] 4.76 10*6/uL Normal 3.60-5.00 [facility] Comment on above: Performed By: #### C SF GLU, CSFCCDIFF, CSF TP #2, CSFCCDIFF #2, CSF TP, CSF GLU #2 #### [address] WBC (Bld) [#/Vol] 13.6 10*3/uL High 3.8-11.6 [facility] Comment on above: Performed By: #### C SF GLU, CSFCCDIFF, CSF TP #2, CSFCCDIFF #2, CSF TP, CSF GLU #2 #### [address] Comprehensive Metabolic Pane raimundo 11-04-2022 Albumin [Mass/Vol] 4.3 g/dL Normal 3.5-5.7 [facility] Comment on above: Performed By: #### C SF GLU, CSFCCDIFF, CSF TP #2, CSFCCDIFF #2, CSF TP, CSF GLU #2 #### [address] Albumin/Globulin [Mass ratio] 1.8 {ratio} Normal [facility] Comment on above: Performed By: #### C SF GLU, CSFCCDIFF, CSF TP #2, CSFCCDIFF #2, CSF TP, CSF GLU #2 #### [address] ALP [Catalytic activity/Vol] 94 U/L Normal 34-104 [facility] Comment on above: Performed By: #### C SF GLU, CSFCCDIFF, CSF TP #2, CSFCCDIFF #2, CSF TP, CSF GLU #2 #### [address] ALT [Catalytic activity/Vol] 20 U/L Normal 7-52 [facility] Comment on above: Performed By: #### C SF GLU, CSFCCDIFF, CSF TP #2, CSFCCDIFF #2, CSF TP, CSF GLU #2 #### [facility] [address] Anion gap [Moles/Vol] 11.1 mmol/L Normal 6.0-15.0 [facility] Comment on above: Performed By: #### C SF GLU, CSFCCDIFF, CSF TP #2, CSFCCDIFF #2, CSF TP, CSF GLU #2 #### [facility] [address] AST [Catalytic activity/Vol] 15 U/L Normal 13-39 [facility] Comment on above: Performed By: #### C SF GLU, CSFCCDIFF, CSF TP #2, CSFCCDIFF #2, CSF TP, CSF GLU #2 #### [facility] [address] Bilirubin [Mass/Vol] 0.3 mg/dL Normal 0.3-1.0 [facility] Comment on above: Performed By: #### C SF GLU, CSFCCDIFF, CSF TP #2, CSFCCDIFF #2, CSF TP, CSF GLU #2 #### [facility] [address] Calcium [Mass/Vol] 8.9 mg/dL Normal 8.6-10.3 [facility] Comment on above: Performed By: #### C SF GLU, CSFCCDIFF, CSF TP #2, CSFCCDIFF #2, CSF TP, CSF GLU #2 #### [facility] [address] Chloride [Moles/Vol] 110 mmol/L High 98-107 [facility] Comment on above: Performed By: #### C SF GLU, CSFCCDIFF, CSF TP #2, CSFCCDIFF #2, CSF TP, CSF GLU #2 #### [facility] [address] CO2 [Moles/Vol] 23.8 mmol/L Normal 21.0-31.0 [facility] Comment on above: Performed By: #### C SF GLU, CSFCCDIFF, CSF TP #2, CSFCCDIFF #2, CSF TP, CSF GLU #2 #### [facility] [address] Creatinine [Mass/Vol] 0.98 mg/dL Normal 0.60-1.20 [facility] Comment on above: Performed By: #### C SF GLU, CSFCCDIFF, CSF TP #2, CSFCCDIFF #2, CSF TP, CSF GLU #2 #### [facility] [address] Creatinine Clr Calc Pharmacy 88.00 [facility] Comment on above: Performed By: #### C SF GLU, CSFCCDIFF, CSF TP #2, CSFCCDIFF #2, CSF TP, CSF GLU #2 #### [facility] [address] GFR/1.73 sq M.predicted MDRD (S/P/Bld) [Vol rate/Area] mL/min/{1.73_m2} [facility] Comment on above: Performed By: #### C SF GLU, CSFCCDIFF, CSF TP #2, CSFCCDIFF #2, CSF TP, CSF GLU #2 #### [address] Globulin (S) [Mass/Vol] 2.4 g/dL [facility] Comment on above: Performed By: #### C SF GLU, CSFCCDIFF, CSF TP #2, CSFCCDIFF #2, CSF TP, CSF GLU #2 #### [facility] [address] Glucose [Mass/Vol] 115 mg/dL High 70-100 [facility] Comment on above: Result Comment: [facility] Glucose Reference Range is dependent on time and content of last meal. Glucose of more than 200 mg/dL in a nonstressed, ambulatory subject supports the diagnosis of Diabetes Mellitus. ADA recommended reference range Performed By: #### C SF GLU, CSFCCDIFF, CSF TP #2, CSFCCDIFF #2, CSF TP, CSF GLU #2 #### [facility] [address] Potassium [Moles/Vol] 3.9 mmol/L Normal 3.5-5.1 [facility] Comment on above: Performed By: #### C SF GLU, CSFCCDIFF, CSF TP #2, CSFCCDIFF #2, CSF TP, CSF GLU #2 #### [facility] [address] Protein [Mass/Vol] 6.7 g/dL Normal 6.4-8.9 [facility] Comment on above: Performed By: #### C SF GLU, CSFCCDIFF, CSF TP #2, CSFCCDIFF #2, CSF TP, CSF GLU #2 #### [address] Sodium [Moles/Vol] 141 mmol/L Normal 136-145 [facility] Comment on above: Performed By: #### C SF GLU, CSFCCDIFF, CSF TP #2, CSFCCDIFF #2, CSF TP, CSF GLU #2 #### [address] Urea nitrogen [Mass/Vol] 14 mg/dL Normal 7-25 [facility] Comment on above: Performed By: #### C SF GLU, CSFCCDIFF, CSF TP #2, CSFCCDIFF #2, CSF TP, CSF GLU #2 #### [address] Copperon 11-04-2022 Copper 117 ug/dL Normal 80-158 [facility] Comment on above: Result Comment: This test was developed and its performance characteristics determined by [facility]. It has not been cleared or approved by the Food and Drug Administration. Detection Limit = 5 Performed at: [address] [id number] Life Skills Coordinator Volunteer: Juan Tejada MD, Phone: [phone] Performed By: #### C SF GLU, CSFCCDIFF, CSF TP #2, CSFCCDIFF #2, CSF TP, CSF GLU #2 #### [address] Creatinine [Mass/volume] in Serum or PlasmaOrdered By: Nicki Duran on 11-04-2022 Creatinine [Mass/Vol] 0.98 mg/dL 0.60-1.20 [facility] Eosinophils Auto (Bld) [#/Vo l]Ordered By: Nicki Duran on 11-04-2022 Eosinophils (Bld) [#/Vol] 0.5 10*3/uL 0.0-0.45 [facility] Eosinophils/100 WBC Auto (Bl d)Ordered By: Nicki Duran on 11-04-2022 Eosinophils/100 WBC (Bld) 3.7 % . [facility] Erythrocyte distribution wid th Auto (RBC) [Ratio]Ordered By: Nicki Duran on 11-04-2022 Erythrocyte distribution width (RBC) [Ratio] 15.3 % 11.9-15.3 [facility] Ferritinon 11-04-2022 Ferritin [Mass/Vol] 25.8 ng/mL Normal 11.0-306.8 [facility] Comment on above: Result Comment: PERF ORMED BY: [place] [address] PATHOLOGIST CREATIVE SERVICES COORDINATOR JUNIOR GREEN M.D. Performed By: #### C SF GLU, CSFCCDIFF, CSF TP #2, CSFCCDIFF #2, CSF TP, CSF GLU #2 #### [address] Ferritin [Mass/volume] in Se rum or PlasmaOrdered By: Nicki Duran on 11-04-2022 Ferritin [Mass/Vol] 25.8 ng/mL 11.0-306.8 [facility] Free K+L LT Chains, Qn, Son 11-04-2022 Free [place] Light Chains, S 15.9 mg/L Normal 3.3-19.4 [facility] Comment on above: Performed By: #### C SF GLU, CSFCCDIFF, CSF TP #2, CSFCCDIFF #2, CSF TP, CSF GLU #2 #### [address] Free [place] Light Chains, S 7.8 mg/L Normal 5.7-26.3 [facility] Comment on above: Performed By: #### C SF GLU, CSFCCDIFF, CSF TP #2, CSFCCDIFF #2, CSF TP, CSF GLU #2 #### [address] [place]/Lambda Ratio, S 2.04 High 0.26-1.65 [facility] Comment on above: Result Comment: Perf ormed at: - [facility] [address] [id number] Life Skills Coordinator Volunteer: Chato Rincon PhD, Phone: [phone] PERFORMED BY: [place] [address] PATHOLOGIST CREATIVE SERVICES COORDINATOR JUNIOR GREEN M.D. Performed By: #### C SF GLU, CSFCCDIFF, CSF TP #2, CSFCCDIFF #2, CSF TP, CSF GLU #2 #### [address] Globulin Calc (S) [Mass/Vol] Ordered By: Nicki Duran on 11-04-2022 Globulin (S) [Mass/Vol] 2.4 g/dL [facility] Glucose [Mass/volume] in Ser um or PlasmaOrdered By: Nicki Duran on 11-04-2022 Glucose [Mass/Vol] 115 mg/dL 70-100 [facility] Comment on above: ADA recommended refe rence rangeRandom Glucose Reference Range is dependent on time and content of last meal. Glucose of more than 200 mg/dL in a nonstressed, ambulatory subject supports the diagnosis of Diabetes Mellitus. Hematocrit Auto (Bld) [Volum e fraction]Ordered By: Nicki Duran on 11-04-2022 Hematocrit (Bld) [Volume fraction] 40.8 % 34.0-46.4 [facility] Hemoglobin [Mass/volume] in BloodOrdered By: Nicki Duran on 11-04-2022 Hemoglobin (Bld) [Mass/Vol] 13.5 g/dL 11.8-15.4 [facility] IgA [Mass/volume] in Serum o r PlasmaOrdered By: Nicki Quinnfrancoise on 11-04-2022 IgA [Mass/Vol] 92 mg/dL 87-352 [facility] IgG [Mass/volume] in Serum o r PlasmaOrdered By: Nicki Quinnfrancoise on 11-04-2022 IgG [Mass/Vol] 676 mg/dL 586-1602 [facility] IgM [Mass/volume] in Serum o r PlasmaOrdered By: Nicki Quinnfrancoise on 11-04-2022 IgM [Mass/Vol] 105 mg/dL 26-217 [facility] Immunofixation,Serumon 11-04 Immunofixation, Serum Normal . [facility] Comment on above: Result Comment: No m onoclonality detected. Performed By: #### C SF GLU, CSFCCDIFF, CSF TP #2, CSFCCDIFF #2, CSF TP, CSF GLU #2 #### [facility] [address] [place] [id number] [place] Immunoglobulin A, Serum 92 mg/dL Normal 87-352 [facility] Comment on above: Performed By: #### C SF GLU, CSFCCDIFF, CSF TP #2, CSFCCDIFF #2, CSF TP, CSF GLU #2 #### [facility] [address] [place] [address] [place] Immunoglobulin G 676 mg/dL Normal 586-1602 [facility] Comment on above: Performed By: #### C SF GLU, CSFCCDIFF, CSF TP #2, CSFCCDIFF #2, CSF TP, CSF GLU #2 #### [facility] [address] [place] [address] [place] Immunoglobulin M, Serum 105 mg/dL Normal 26-217 [facility] Comment on above: Performed By: #### C SF GLU, CSFCCDIFF, CSF TP #2, CSFCCDIFF #2, CSF TP, CSF GLU #2 #### [facility] [address] [place] [address] [place] Immunoglobulin light chains. kappa.free [Mass/volume] in SerumOrdered By: Nicki Duran on 11-04-2022 Immunoglobulin light chains.kappa.free (S) [Mass/Vol] 15.9 mg/L 3.3-19.4 [facility] Immunoglobulin light chains. kappa.free/Immunoglobulin light chains.lambda.free [MassOrdered By: Nicki Duran on 11-04-2022 Immunoglobulin light chains.kappa.free/Immu noglobulin light chains.lambda.free (S) [Mass ratio] 2.04 0.26-1.65 [facility] Comment on above: Performed at: [address] [id number] Director: Chato Rincon PhD, Phone: [phone] Immunoglobulin light chains. lambda.free [Mass/volume] in Serum or PlasmaOrdered By: Nicki Duran on 11-04-2022 Immunoglobulin light chains.lambda.free [Mass/Vol] 7.8 mg/L 5.7-26.3 [facility] Iron [Mass/volume] in Serum or PlasmaOrdered By: Nicki Duran on 11-04-2022 Iron [Mass/Vol] 55 ug/dL 50-212 [facility] Iron and TIBC Profileon 10-15 % Iron Saturation 14.1 % Low 20-50 [facility] Comment on above: Performed By: #### C SF GLU, CSFCCDIFF, CSF TP #2, CSFCCDIFF #2, CSF TP, CSF GLU #2 #### [facility] [address] [place] [address] [place] Iron [Mass/Vol] 55 ug/dL Normal 50-212 [facility] Comment on above: Performed By: #### C SF GLU, CSFCCDIFF, CSF TP #2, CSFCCDIFF #2, CSF TP, CSF GLU #2 #### [facility] [address] [place] [address] [place] Total Iron Binding Capacity 391 ug/dL Normal 255-450 [facility] Comment on above: Performed By: #### C SF GLU, CSFCCDIFF, CSF TP #2, CSFCCDIFF #2, CSF TP, CSF GLU #2 #### [facility] [address] [place] [id number] [place] Transferrin [Mass/Vol] 279 mg/dL Normal 203-362 [facility] Comment on above: Performed By: #### C SF GLU, CSFCCDIFF, CSF TP #2, CSFCCDIFF #2, CSF TP, CSF GLU #2 #### [facility] [address] Iron binding capacity [Mass/ volume] in Serum or PlasmaOrdered By: Nicki Duran on 11-04-2022 Iron binding capacity [Mass/Vol] 391 ug/dL 255-450 [facility] Iron saturation [Mass Fracti on] in Serum or PlasmaOrdered By: Nicki Duran on 11-04-2022 Iron saturation [Mass fraction] 14.1 % 20-50 [facility] LDH Lactate Dehydrogenaseon 11-04-2022 LDH Lactate Dehydrogenase 153 U/L Normal 140-271 [facility] Comment on above: Performed By: #### C SF GLU, CSFCCDIFF, CSF TP #2, CSFCCDIFF #2, CSF TP, CSF GLU #2 #### [facility] [address] [place] [address] [place] Lactate dehydrogenase [Enzym atic activity/volume] in Serum or Plasma by Lactate to pyOrdered By: Nicki Duran on 11-04-2022 LDH Lactate to pyruvate reaction [Catalytic activity/Vol] 153 U/L 140-271 [facility] Leukocytes [#/volume] correc [place]in[place] for nucleated erythrocytes in Blood by Automated counOrdered By: Nicki Duran on 11-04-2022 WBC corrected for nucl RBC Auto (Bld) [#/Vol] 13.6 10*3/uL 3.8-11.6 [facility] Lymphocytes Auto (Bld) [#/Vo l]Ordered By: Nicki Duran on 11-04-2022 Lymphocytes (Bld) [#/Vol] 4.0 10*3/uL 1.00-4.8 [facility] Lymphocytes/100 WBC Auto (Bl d)Ordered By: Nicki Duran on 11-04-2022 Lymphocytes/100 WBC (Bld) 29.2 % . [facility] MCH Auto (RBC) [Entitic mass ]Ordered By: Nicki Duran on 11-04-2022 MCH (RBC) [Entitic mass] 28.4 pg 24.7-34.3 [facility] MCHC Auto (RBC) [Mass/Vol]Or dered By: Nicki Duran on 11-04-2022 MCHC (RBC) [Mass/Vol] 33.1 g/dL 32.0-35.0 [facility] MCV Auto (RBC) [Entitic vol] Ordered By: Nicki Duran on 11-04-2022 MCV (RBC) [Entitic vol] 85.7 fL 80-100 [facility] Monocyte %Ordered By: Nicki bradley on 11-04-2022 Monocyte % 117 ug/dL 80-158 [facility] Comment on above: This test was develo ped and its performance characteristicsdetermined by [facility]. It has not been cleared orapproved by the Food and Drug Administration. Detection Limit = 5Performed at: [address] [id number] Director: Juan Tejada MD, Phone: [phone] Monocytes Auto (Bld) [#/Vol] Ordered By: Nicki Duran on 11-04-2022 Monocytes (Bld) [#/Vol] 0.7 10*3/uL 0.0-0.8 [facility] Monocytes/100 WBC Auto (Bld) Ordered By: Nicki Duran on 11-04-2022 Monocytes/100 WBC (Bld) 5.1 % . [facility] Neutrophils Auto (Bld) [#/Vo l]Ordered By: Nicki Duran on 11-04-2022 Neutrophils (Bld) [#/Vol] 8.3 10*3/uL 1.8-7.7 [facility] Neutrophils/100 WBC Auto (Bl d)Ordered By: Nicki Duran on 11-04-2022 Neutrophils/100 WBC (Bld) 61.3 % . [facility] No Panel InformationOrdered By: Nicki Duran on 11-04-2022 Estimated GFR (CKD-EPI) > 60.0 mL/Min [facility] Creatinine Clearance (Chem 88.00 [facility] Protein Electrophoresis M-Antwan Not observed g/dL Not Observed [facility] Protein Electrophoresis Note See comment . [facility] Comment on above: Protein electrophore sis scan will follow via computer,mail, or corporate trainer delivery.Performed at: [employer] [facility] [id number] Director: Chato Rincon PhD, Phone: [phone] Serum Immunofixation See comment . [facility] Comment on above: No monoclonality det ected. Nucleated erythrocytes [Pres ence] in Blood by Automated countOrdered By: Nicki Duran on 11-04-2022 Nucleated RBC Auto Ql (Bld) 0.2 /100{WBC} 0-0.5 [facility] Platelet mean volume Auto (B ld) [Entitic vol]Ordered By: Nicki Duran on 11-04-2022 Platelet mean volume (Bld) [Entitic vol] 6.9 fL 6.3-10.7 [facility] Platelets Auto (Bld) [#/Vol] Ordered By: Nicki Duran on 11-04-2022 Platelets (Bld) [#/Vol] 385 10*3/uL 150-450 [facility] Potassium [Moles/volume] in Serum or PlasmaOrdered By: Nicki Duran on 11-04-2022 Potassium [Moles/Vol] 3.9 mmol/L 3.5-5.1 [facility] Protein Electrophoresis, Ser umon 11-04-2022 Albumin [Mass/Vol] 3.6 g/dL Normal 2.9-4.4 [facility] Comment on above: Performed By: #### C SF GLU, CSFCCDIFF, CSF TP #2, CSFCCDIFF #2, CSF TP, CSF GLU #2 #### [facility] [address] [place] [address] [place] Albumin/Globulin [Mass ratio] 1.2 {ratio} Normal 0.7-1.7 [facility] Comment on above: Performed By: #### C SF GLU, CSFCCDIFF, CSF TP #2, CSFCCDIFF #2, CSF TP, CSF GLU #2 #### [facility] [address] [place] [address] [place] Buohq-4-Ishxiazt 0.3 g/dL Normal 0.0-0.4 [facility] Comment on above: Performed By: #### C SF GLU, CSFCCDIFF, CSF TP #2, CSFCCDIFF #2, CSF TP, CSF GLU #2 #### [facility] [address] [place] [address] [place] Uvhjt-4-Gyojvley 0.9 g/dL Normal 0.4-1.0 [facility] Comment on above: Performed By: #### C SF GLU, CSFCCDIFF, CSF TP #2, CSFCCDIFF #2, CSF TP, CSF GLU #2 #### [place] [address] [place] Beta Globulin 1.1 g/dL Normal 0.7-1.3 [facility] Comment on above: Performed By: #### C SF GLU, CSFCCDIFF, CSF TP #2, CSFCCDIFF #2, CSF TP, CSF GLU #2 #### [address] Gamma Globulin 0.8 g/dL Normal 0.4-1.8 [facility] Comment on above: Performed By: #### C SF GLU, CSFCCDIFF, CSF TP #2, CSFCCDIFF #2, CSF TP, CSF GLU #2 #### [place] [address] [place] Globulin (S) [Mass/Vol] 3.0 g/dL Normal 2.2-3.9 [facility] Comment on above: Performed By: #### C SF GLU, CSFCCDIFF, CSF TP #2, CSFCCDIFF #2, CSF TP, CSF GLU #2 #### [facility] [address] [place] [address] [place] M-Antwan Not Observed Normal Not Observed [facility] Comment on above: Performed By: #### C SF GLU, CSFCCDIFF, CSF TP #2, CSFCCDIFF #2, CSF TP, CSF GLU #2 #### [place] [address] [place] Protein [Mass/Vol] 6.6 g/dL Normal 6.0-8.5 [facility] Comment on above: Performed By: #### C SF GLU, CSFCCDIFF, CSF TP #2, CSFCCDIFF #2, CSF TP, CSF GLU #2 #### [facility] [address] [place] [address] [place] SPE-Note Normal . [facility] Comment on above: Result Comment: Prot ein electrophoresis scan will follow via computer, mail, or corporate trainer delivery. Performed at: [facility] [address] [id number] Life Skills Coordinator Volunteer: Chato Rincon PhD, Phone: [phone] Performed By: #### C SF GLU, CSFCCDIFF, CSF TP #2, CSFCCDIFF #2, CSF TP, CSF GLU #2 #### [facility] [address] Protein [Mass/volume] in Ser um or PlasmaOrdered By: Nicki Duran on 11-04-2022 Protein [Mass/Vol] 6.7 g/dL 6.4-8.9 [facility] Protein [Mass/Vol] 6.6 g/dL 6.0-8.5 [facility] RBC Auto (Bld) [#/Vol]Ordere d By: Nicki Duran on 11-04-2022 RBC (Bld) [#/Vol] 4.76 10*6/uL 3.60-5.00 [facility] Serum globulin measurement ( mass/volume)Ordered By: Nicki Duran on 11-04-2022 Globulin (S) [Mass/Vol] 3.0 g/dL 2.2-3.9 [facility] Serum or plasma albumin/glob ulin mass ratioOrdered By: Nicki Duran on 11-04-2022 Albumin/Globulin [Mass ratio] 1.8 {ratio} [facility] Albumin/Globulin [Mass ratio] 1.2 {ratio} 0.7-1.7 [facility] Serum or plasma alpha 1 glob ulin measurement by electrophoresis (mass/volume)Ordered By: Nicki Duran on 11-04-2022 Alpha 1 globulin Elph [Mass/Vol] 0.3 g/dL 0.0-0.4 [facility] Serum or plasma alpha 2 glob ulin measurement by electrophoresis (mass/volume)Ordered By: Nicki Duran on 11-04-2022 Alpha 2 globulin Elph [Mass/Vol] 0.9 g/dL 0.4-1.0 [facility] Serum or plasma anion gap de terminationOrdered By: Nicki Duran on 11-04-2022 Anion gap [Moles/Vol] 11.1 mmol/L 6.0-15.0 [facility] Serum or plasma beta globuli n measurement by electrophoresis (mass/volume)Ordered By: Nicki Duran on 11-04-2022 Beta globulin Elph [Mass/Vol] 1.1 g/dL 0.7-1.3 [facility] Serum or plasma gamma globul in measurement by electrophoresis (mass/volume)Ordered By: Nicki Duran on 11-04-2022 Gamma globulin Elph [Mass/Vol] 0.8 g/dL 0.4-1.8 [facility] Sodium [Moles/volume] in Ser um or PlasmaOrdered By: Nicki Duran on 11-04-2022 Sodium [Moles/Vol] 141 mmol/L 136-145 [facility] Transferrin [Mass/volume] in Serum or PlasmaOrdered By: Nicki Duran on 11-04-2022 Transferrin [Mass/Vol] 279 mg/dL 203-362 [facility] Urea nitrogen [Mass/volume] in Serum or PlasmaOrdered By: Nicki Duran on 11-04-2022 Urea nitrogen [Mass/Vol] 14 mg/dL 7-25 [facility] WBC Auto (Bld) [#/Vol]Ordere d By: Nicki Duran on 11-04-2022 WBC (Bld) [#/Vol] 13.6 10*3/uL 3.8-11.6 [facility] INSULINon 06-30-2022 Insulin 16.0 uIU/mL Normal 2.6-24.9 [facility] Comment on above: Performed By: #### I NSULIN #### [facility] [address] [place] [address] Dr. Moriah Schulz CBC AUTO DIFFon 06-28-2022 BASO # 0.1 103/ul Normal 0.0-0.1 [facility] Comment on above: Performed By: #### C BC #### [facility] [address] [place] [address] Dr. Moriah Schulz Basophils/100 WBC (Bld) 0.6 % Normal 0.2-2.0 [facility] Comment on above: Performed By: #### C BC #### [facility] [address] [place] [address] Dr. Moriah Schulz EO # 0.3 103/ul Normal 0.0-0.7 [facility] Comment on above: Performed By: #### C BC #### [facility] [address] [place] [address] Dr. Moriah Schulz Eosinophils/100 WBC (Bld) 3.0 % Normal 0.9-7.0 [facility] Comment on above: Performed By: #### C BC #### [facility] [address] [place] [address] Dr. Moriah Schulz Erythrocyte distribution width (RBC) [Ratio] 14.9 % Normal 11.0-15.0 [facility] Comment on above: Performed By: #### C BC #### [facility] [address] [place] [address] Dr. Moriah Schulz Hematocrit (Bld) [Volume fraction] 36.9 % Normal 36.0-48.0 [facility] Comment on above: Performed By: #### C BC #### [facility] [address] [place] [address] Dr. Moriah Schulz Hemoglobin (Bld) [Mass/Vol] 12.1 g/dL Normal 12.0-16.0 [facility] Comment on above: Performed By: #### C BC #### [facility] [address] [place] [address] Dr. Moriah Schulz IG # 0.03 10e3/ul Normal 0.00-0.03 [facility] Comment on above: Performed By: #### C BC #### [facility] [address] [place] [address] Dr. Moriah Schulz IG % 0.3 % Normal 0.0-0.5 [facility] Comment on above: Performed By: #### C BC #### [facility] [address] [place] [address] Dr. Moriah Schulz LYMPH # 2.8 103/ul Normal 1.2-3.8 [facility] Comment on above: Performed By: #### C BC #### [facility] [address] [place] [address] Dr. Moriah Schulz Lymphocytes/100 WBC (Bld) 29.1 % Normal 20.5-60.0 [facility] Comment on above: Performed By: #### C BC #### [facility] [address] [place] [address] Dr. Moriah Schulz MANUAL DIFF REQ NO Normal [facility] Comment on above: Performed By: #### C BC #### [facility] [address] [place] [address] Dr. Moriah Schulz MCH (RBC) [Entitic mass] 28.5 pg Normal 26.7-34.0 [facility] Comment on above: Performed By: #### C BC #### [facility] [address] [place] [address] Dr. Moriah Schulz MCHC (RBC) [Mass/Vol] 32.8 g/dL Normal 29.9-35.2 [facility] Comment on above: Performed By: #### C BC #### [facility] [address] [place] [address] Dr. Moriah Schulz MCV (RBC) [Entitic vol] 86.8 fL Normal 81.0-99.0 [facility] Comment on above: Performed By: #### C BC #### [facility] [address] [place] [address] Dr. Moriah Schulz MONO # 0.5 103/ul Normal 0.3-0.8 [facility] Comment on above: Performed By: #### C BC #### [facility] [address] [place] [address] Dr. Moriah Schulz Monocytes/100 WBC (Bld) 5.1 % Normal 1.7-12.0 [facility] Comment on above: Performed By: #### C BC #### [facility] [address] [place] [address] Dr. Moriah Schulz NEUT # 5.9 103/ul Normal 1.4-6.5 [facility] Comment on above: Performed By: #### C BC #### [facility] [address] [place] [address] Dr. Moriah Schulz Neutrophils/100 WBC (Bld) 61.9 % Normal 43.0-75.0 [facility] Comment on above: Performed By: #### C BC #### [facility] [address] [place] [address] Dr. Moriah Schulz Platelet mean volume (Bld) [Entitic vol] 8.2 fL Critically low 9.5-13.5 [facility] Comment on above: Performed By: #### C BC #### [facility] [address] [place] [address] Dr. Moriah Schulz PLT 280 103/ul Normal 150-450 [facility] Comment on above: Performed By: #### C BC #### [facility] [address] [place] [address] Dr. Moriah Schulz RBC 4.25 106/ul Normal 4.20-5.40 [facility] Comment on above: Performed By: #### C BC #### [facility] [address] [place] [address] Dr. Moriah Schulz WBC 9.6 103/ul Normal 4.0-11.0 [facility] Comment on above: Performed By: #### C BC #### [facility] [address] [place] [address] Dr. Moriah Schulz FREE THYROXINE INDEX T7on FTI 2.01 Normal 1.30-4.50 [facility] Comment on above: Performed By: #### T 7, CMP, LIPID, TSH #### [facility] [address] [place] [address] Dr. Moriah Schulz T3U 30.0 % Normal 30.0-39.0 [facility] Comment on above: Performed By: #### T 7, CMP, LIPID, TSH #### [facility] [address] [address] [address] Moriah Schulz T4 [Mass/Vol] 6.70 ug/dL Normal 4.80-13.90 [facility] Comment on above: Performed By: #### T 7, CMP, LIPID, TSH #### [facility] [address] [address] [address] Moriah Schulz GLYCOHEMOGLOBIN A1Con 2022 ADA RECOMMENDATION SEE BELOW Normal [facility] Comment on above: Result Comment: ADA RECOMMENDED LIMIT 4.0 - 6.0 ADA THERAPEUTIC TARGET < 7.0 ACTION SUGGESTED > 7.0 Performed By: #### A 1C ####[facility] [address] [address]Dr. Moriah Schulz HbA1c (Bld) [Mass fraction] 5.2 % Normal 4.5-6.2 [facility] Comment on above: Performed By: #### A 1C ####[facility] [address] [address]Dr. Moriah Schulz IRONon 06-28-2022 Iron [Mass/Vol] 47.0 ug/dL Critically low 50.0-170.0 [facility] Comment on above: Performed By: #### I SANDY ####[facility] [address] [place], [place] [address]Dr. Moriah Schulz LIPID PROFILEon 06-28-2022 CHOL-HDL RATIO NORM SEE BELOW Normal [facility] Comment on above: Result Comment: 3.3 - 4.4 LOW RISK 4.4 - 7.1 AVERAGE RISK 7.1 - 11.0 MODERATE RISK >11.0 HIGH RISK Performed By: #### T 7, CMP, LIPID, TSH #### [facility] [address] [address] [address] Moriah Schulz Cholesterol [Mass/Vol] 260 mg/dL Critically high <=200 [facility] Comment on above: Performed By: #### T 7, CMP, LIPID, TSH #### [facility] [address] [address] [address] Moriah Schulz Cholesterol in HDL [Mass/Vol] 41 mg/dL Normal 40-60 [facility] Comment on above: Performed By: #### T 7, CMP, LIPID, TSH #### [facility] [address] [address] [address] Moriah Schulz Cholesterol in LDL [Mass/Vol] 192.6 mg/dL Normal [facility] Comment on above: Performed By: #### T 7, CMP, LIPID, TSH #### [facility] [address] [address] [address] Moriah Schulz Cholesterol.total/Chol esterol in HDL [Mass ratio] 6.3 {ratio} Normal [facility] Comment on above: Performed By: #### T 7, CMP, LIPID, TSH #### [facility] [address] [address] [address] Moriah Schulz HDL NORMAL > or = 60 mg/dl - LO W CARDIOVASCULAR RISK <40 mg/dl - HIGH CARDIOVASCULAR RISK Normal [facility] Comment on above: Performed By: #### T 7, CMP, LIPID, TSH #### [facility] [address] [address] [address] Moriah Schulz LDL CALC NORMAL SEE BELOW Normal [facility] Comment on above: Result Comment: <100 mg/dl OPTIMAL 100 - 129 mg/dl NEAR OR ABOVE OPTIMAL 130 - 159 mg/dl BORDERLINE HIGH 160 - 189 mg/dl HIGH >190 mg/dl VERY HIGH Performed By: #### T 7, CMP, LIPID, TSH #### [facility] [address] [address] [address] Moriah Schulz Triglyceride [Mass/Vol] 132 mg/dL Normal <=150 [facility] Comment on above: Performed By: #### T 7, CMP, LIPID, TSH #### [facility] [address] [place] [address] Dr. Moriah Schulz VLDL CALC 26.4 mg/dL Normal [facility] Comment on above: Performed By: #### T 7, CMP, LIPID, TSH #### [facility] [address] [place] [address] Dr. Moriah Schulz PROF 14(COMP METB)on 023 Albumin [Mass/Vol] 3.7 g/dL Normal 3.4-5.0 [facility] Comment on above: Performed By: #### T 7, CMP, LIPID, TSH #### [facility] [address] [address] [address] Moriah Schulz Albumin/Globulin [Mass ratio] 1.0 {ratio} Normal [facility] Comment on above: Performed By: #### T 7, CMP, LIPID, TSH #### [facility] [address] [place] [address] Dr. Moriah Schulz ALP [Catalytic activity/Vol] 90 U/L Normal 46-116 [facility] Comment on above: Performed By: #### T 7, CMP, LIPID, TSH #### [facility] [address] [place] [address] Dr. Moriah Schulz ALT [Catalytic activity/Vol] 38 U/L Normal 14-59 [facility] Comment on above: Performed By: #### T 7, CMP, LIPID, TSH #### [facility] [address] [address] [address] Moriah Schulz Anion gap [Moles/Vol] 12.4 mmol/L Normal [facility] Comment on above: Performed By: #### T 7, CMP, LIPID, TSH #### [facility] [address] [place] [address] Dr. Moriah Schulz AST [Catalytic activity/Vol] 15 U/L Normal 15-37 [facility] Comment on above: Performed By: #### T 7, CMP, LIPID, TSH #### [facility] [address] [address] [address] Moriah Schulz Bilirubin [Mass/Vol] 0.3 mg/dL Normal 0.2-1.0 [facility] Comment on above: Performed By: #### T 7, CMP, LIPID, TSH #### [facility] [address] [place] [address] Dr. Moriah Schulz Calcium [Mass/Vol] 8.8 mg/dL Normal 8.5-10.1 [facility] Comment on above: Performed By: #### T 7, CMP, LIPID, TSH #### [facility] [address] [address] [address] Moriah Schulz Chloride [Moles/Vol] 101 mmol/L Normal 98-107 [facility] Comment on above: Performed By: #### T 7, CMP, LIPID, TSH #### [facility] [address] [place] [address] Dr. Moriah Schulz CO2 [Moles/Vol] 29.2 mmol/L Normal 21.0-32.0 [facility] Comment on above: Performed By: #### T 7, CMP, LIPID, TSH #### [facility] [address] [place] [address] Dr. Moriah Schulz Creatinine [Mass/Vol] 0.99 mg/dL Normal 0.55-1.02 [facility] Comment on above: Performed By: #### T 7, CMP, LIPID, TSH #### [facility] [address] [place] [address] Dr. Moriah Schulz EGFR-AF SCOTTISH >60 Normal >=60 [facility] Comment on above: Performed By: #### T 7, CMP, LIPID, TSH #### [facility] [address] [place] [address] Dr. Moriah Schulz EGFR-NON AF SCOTTISH >60 Normal >=60 [facility] Comment on above: Performed By: #### T 7, CMP, LIPID, TSH #### [facility] [address] [place] [address] Dr. Moriah Schulz Globulin (S) [Mass/Vol] 3.7 g/dL Normal [facility] Comment on above: Performed By: #### T 7, CMP, LIPID, TSH #### [facility] [address] [place] [address] Dr. Moriah Schulz Glucose [Mass/Vol] 103 mg/dL Normal [facility] Comment on above: Performed By: #### T 7, CMP, LIPID, TSH #### [facility] [address] [place] [address] Dr. Moriah Schulz Performed By: #### A 1C ####[facility] [address] [place], [place] [address]Dr. Moriah Schulz Potassium [Moles/Vol] 3.6 mmol/L Normal 3.5-5.1 [facility] Comment on above: Performed By: #### T 7, CMP, LIPID, TSH #### [facility] [address] [address] [address] Moriah Schulz Protein [Mass/Vol] 7.4 g/dL Normal 6.4-8.2 [facility] Comment on above: Performed By: #### T 7, CMP, LIPID, TSH #### [facility] [address] [address] [address] Moriah Schulz Sodium [Moles/Vol] 139 mmol/L Normal 136-145 [facility] Comment on above: Performed By: #### T 7, CMP, LIPID, TSH #### [facility] [address] [address] [address] Moriah Schulz Urea nitrogen [Mass/Vol] 14.0 mg/dL Normal 7.0-18.0 [facility] Comment on above: Performed By: #### T 7, CMP, LIPID, TSH #### [facility] [address] [address] [address] Moriah Schulz Urea nitrogen/Creatinine [Mass ratio] 14.1 mg/mg Normal [facility] Comment on above: Performed By: #### T 7, CMP, LIPID, TSH #### [facility] [address] [address] [address] Moriah Schulz TSHon 06-28-2022 TSH 3.338 uIU/mL Normal 0.358-3.740 [facility] Comment on above: Performed By: #### T 7, CMP, LIPID, TSH #### [facility] [address] [place] [address] Dr. Moriah Schulz Albumin [Mass/volume] in Ser um or PlasmaOrdered By: Jenny Swartz on 11-21-2021 Albumin [Mass/Vol] 4.1 g/dL 3.2-5.5 [facility] Basophils Auto (Bld) [#/Vol] Ordered By: Jenny Swartz on 11-21-2021 Basophils (Bld) [#/Vol] 0.1 10*3/uL 0.0-0.2 [facility] Basophils/100 WBC Auto (Bld) Ordered By: Jenny Swartz on 11-21-2021 Basophils/100 WBC (Bld) 0.8 % . [facility] Blood hemoglobin measurement (mass/volume)Ordered By: Jenny Swartz on 11-21-2021 Hemoglobin (Bld) [Mass/Vol] 13.4 g/dL 11.8-15.4 [facility] Blood leukocytes automated c ount (number/volume)Ordered By: Jenny Swartz on 11-21-2021 WBC (Bld) [#/Vol] 13.9 10*3/uL 4.5-11.0 [facility] Cholesterol [Mass/volume] in Serum or PlasmaOrdered By: Jenny Swartz on 11-21-2021 Cholesterol [Mass/Vol] 240 mg/dL 140-200 [facility] Comment on above: Chol less than 200 m g/dl low risk Chol 201-239 mg/dl borderline risk Chol 240 mg/dl and greater high risk Cholesterol in LDL Calc [Mas s/Vol]Ordered By: Jenny Swartz on 11-21-2021 Cholesterol in LDL [Mass/Vol] 143 mg/dL 0-100 [facility] Comment on above: LDL ATP III CLASSIFI CATION LDL less than 100 mg/dL Optimal LDL 100-129 mg/dL Near or above optimal LDL 130-159 mg/dL Borderline high LDL 160-189 mg/dL High LDL greater than 189 mg/dL Very high Cholesterol in VLDL Calc [Ma ss/Vol]Ordered By: Jenny Swartz on 11-21-2021 Cholesterol in VLDL [Mass/Vol] 59 mg/dL [facility] Creatinine and Glomerular fi ltration rate.predicted panel (S/P/Bld)Ordered By: Jenny Swartz on 11-21-2021 Creatinine [Mass/Vol] 0.99 mg/dL 0.44-1.03 [facility] Eosinophils Auto (Bld) [#/Vo l]Ordered By: Jenny Swartz on 11-21-2021 Eosinophils (Bld) [#/Vol] 0.4 10*3/uL 0.0-0.45 [facility] Eosinophils/100 WBC Auto (Bl d)Ordered By: Jenny Swartz on 11-21-2021 Eosinophils/100 WBC (Bld) 3.1 % . [facility] Erythrocyte distribution wid th Auto (RBC) [Ratio]Ordered By: Jenny Swartz on 11-21-2021 Erythrocyte distribution width (RBC) [Ratio] 15.3 % 11.9-15.3 [facility] Estimated glomerular filtrat ion rate (GFR) non- AmericanOrdered By: Jenny Swartz on 11-21-2021 GFR/1.73 sq M.predicted among non-blacks MDRD (S/P/Bld) [Vol rate/Area] > 60 mL/Min [facility] Globulin Calc (S) [Mass/Vol] Ordered By: Jenny Swartz on 11-21-2021 Globulin (S) [Mass/Vol] 2.9 g/dL [facility] Glucose mean value [Mass/vol ume] in Blood Estimated from glycated hemoglobinOrdered By: Jenny Swatrz on 11-21-2021 Average glucose Estimated from glycated hemoglobin (Bld) [Mass/Vol] 128 mg/dL [facility] Hematocrit Auto (Bld) [Volum e fraction]Ordered By: Jenny Swartz on 11-21-2021 Hematocrit (Bld) [Volume fraction] 40.5 % 34.0-46.4 [facility] Hemoglobin A1c percentageOrd ered By: Jenny Swartz on 11-21-2021 HbA1c (Bld) [Mass fraction] 6.1 % 4.3-5.6 [facility] Comment on above: Increased risk for d iabetes: 5.7 - 6.4 diabetes: >6.4 glycemic control for adults with diabetes: <7.0 Iron [Mass/volume] in Serum or PlasmaOrdered By: Jenny Swartz on 11-21-2021 Iron [Mass/Vol] 54 ug/dL 40-150 [facility] - Hematology and Cell countsOrdered By: Jenny Swartz on 11-21-2021 Nucleated RBC/100 WBC (Bld) [Ratio] 0.1 % 0-0.5 [facility] Lymphocytes Auto (Bld) [#/Vo l]Ordered By: Jenny Swartz on 11-21-2021 Lymphocytes (Bld) [#/Vol] 2.6 10*3/uL 1.00-4.8 [facility] Lymphocytes/100 WBC Auto (Bl d)Ordered By: Jenny Swartz on 11-21-2021 Lymphocytes/100 WBC (Bld) 18.6 % . [facility] MCH Auto (RBC) [Entitic mass ]Ordered By: Jenny Swartz on 11-21-2021 MCH (RBC) [Entitic mass] 28.2 pg 24.7-34.3 [facility] MCHC Auto (RBC) [Mass/Vol]Or dered By: Jenny Swartz on 11-21-2021 MCHC (RBC) [Mass/Vol] 33.2 g/dL 32.0-35.0 [facility] MCV Auto (RBC) [Entitic vol] Ordered By: Jenny Swartz on 11-21-2021 MCV (RBC) [Entitic vol] 85.2 fL 80-100 [facility] Monocytes Auto (Bld) [#/Vol] Ordered By: Jenny Swartz on 11-21-2021 Monocytes (Bld) [#/Vol] 0.7 10*3/uL 0.0-0.8 [facility] Monocytes/100 WBC Auto (Bld) Ordered By: Jenny Swartz on 11-21-2021 Monocytes/100 WBC (Bld) 4.7 % . [facility] Neutrophils Auto (Bld) [#/Vo l]Ordered By: Jenny Swartz on 11-21-2021 Neutrophils (Bld) [#/Vol] 10.1 10*3/uL 1.8-7.7 [facility] Neutrophils/100 WBC Auto (Bl d)Ordered By: Jenny Swartz on 11-21-2021 Neutrophils/100 WBC (Bld) 72.8 % . [facility] No Panel InformationOrdered By: Jenny Swartz on 11-21-2021 Estimated GFR () > 60 mL/Min [facility] Comment on above: GFR estimated refere nce range: According to KDOQI guidelines, <60 ml/min/1.73m2 is sufficient to diagnose a patient with chronic kidney disease. Pharmacy Creatinine Clearance (Chem N/A [facility] Platelet mean volume Auto (B ld) [Entitic vol]Ordered By: Jenny Swartz on 11-21-2021 Platelet mean volume (Bld) [Entitic vol] 6.4 fL 6.3-10.7 [facility] Platelets Auto (Bld) [#/Vol] Ordered By: Jenny Swartz on 11-21-2021 Platelets (Bld) [#/Vol] 467 10*3/uL 150-450 [facility] Protein [Mass/volume] in Ser um or PlasmaOrdered By: Jenny Swartz on 11-21-2021 Protein [Mass/Vol] 7.0 g/dL 6.1-7.9 [facility] RBC Auto (Bld) [#/Vol]Ordere d By: Jenny Swartz on 11-21-2021 RBC (Bld) [#/Vol] 4.75 10*6/uL 3.60-5.00 [facility] Serum or plasma alanine henderson otransferase measurement without P-5'-P (enzymatic activiOrdered By: Jenny Swartz on 11-21-2021 ALT No additional P-5'-P [Catalytic activity/Vol] 22 U/L 10-60 [facility] Serum or plasma albumin/glob ulin mass ratioOrdered By: Jenny Swartz on 11-21-2021 Albumin/Globulin [Mass ratio] 1.4 {ratio} [facility] Serum or plasma alkaline nataliia sphatase measurement (enzymatic activity/volume)Ordered By: Jenny Swartz on 11-21-2021 ALP [Catalytic activity/Vol] 84 U/L 32-92 [facility] Serum or plasma anion gap de terminationOrdered By: Jenny Swartz on 11-21-2021 Anion gap [Moles/Vol] 15.1 mmol/L 6.0-15.0 [facility] Serum or plasma aspartate am inotransferase measurement (enzymatic activity/volume)Ordered By: Jenny Swartz on 11-21-2021 AST [Catalytic activity/Vol] 22 U/L 10-42 [facility] Serum or plasma calcium everardo urement (mass/volume)Ordered By: Jenny Swartz on 11-21-2021 Calcium [Mass/Vol] 9.0 mg/dL 8.2-10.2 [facility] Serum or plasma chloride jero surement (moles/volume)Ordered By: Jenny Swartz on 11-21-2021 Chloride [Moles/Vol] 101 mmol/L 95-114 [facility] Serum or plasma glucose everardo urement (mass/volume)Ordered By: Jenny Swartz on 11-21-2021 Glucose [Mass/Vol] 102 mg/dL 70-100 [facility] Comment on above: ADA recommended refe rence range Random Glucose Reference Range is dependent on time and content of last meal. Glucose of more than 200 mg/dL in a nonstressed, ambulatory subject supports the diagnosis of Diabetes Mellitus. Serum or plasma high density lipoprotein (HDL) cholesterol measurementOrdered By: Jenny Swartz on 11-21-2021 Cholesterol in HDL [Mass/Vol] 37 mg/dL 35-85 [facility] Comment on above: HDL CHOL ATP-III CLA SSIFICATION Cardiovascular Risk HDL > or equal to 60 mg/dL LOW HDL < 40 mg/dL HIGH Serum or plasma potassium me asurement (moles/volume)Ordered By: Jenny Swartz on 11-21-2021 Potassium [Moles/Vol] 3.9 mmol/L 3.5-5.1 [facility] Serum or plasma sodium measu rement (moles/volume)Ordered By: Jenny Swartz on 11-21-2021 Sodium [Moles/Vol] 135 mmol/L 136-146 [facility] Serum or plasma total biliru bin measurement (mass/volume)Ordered By: Jenny Swartz on 11-21-2021 Bilirubin [Mass/Vol] 0.6 mg/dL 0.3-1.2 [facility] Serum or plasma total carbon dioxide measurement (moles/volume)Ordered By: Jenny Swartz on 11-21-2021 CO2 [Moles/Vol] 22.8 mmol/L 22.0-30.0 [facility] Serum or plasma total choles terol/high density lipoprotein (HDL) cholesterol mass ratOrdered By: Jenny Swartz on 11-21-2021 Cholesterol.total/Chol esterol in HDL [Mass ratio] 6.5 {ratio} <5.0 [facility] Serum or plasma urea nitroge n measurement (mass/volume)Ordered By: Jenny Swartz on 11-21-2021 Urea nitrogen [Mass/Vol] 10 mg/dL 9-23 [facility] Triglyceride [Mass/volume] i n Serum or PlasmaOrdered By: Jenny Swartz on 11-21-2021 Triglyceride [Mass/Vol] 299 mg/dL 35-149 [facility] Comment on above: TRIG ATP III CLASSIF ICATION TRIG less than 150 mg/dL Normal TRIG 150-199 mg/dL Borderline high TRIG 200-500 mg/dL High TRIG greater than 500 mg/dL Very high Standard traceable to the Center for Disease Conrtrol and Prevention (CDC) test method. CBC AUTO DIFFon 08-12-2021 BASO # 0.1 103/ul Normal 0.0-0.1 [facility] Comment on above: Performed By: #### C BC ####[facility] [address] [place], [place] [address]Dr. Moraih Schulz Basophils/100 WBC (Bld) 0.6 % Normal 0.2-2.0 [facility] Comment on above: Performed By: #### C BC ####[facility] [address] [place], [place] [address]Dr. Moriah Zeus EO # 0.3 103/ul Normal 0.0-0.7 [facility] Comment on above: Performed By: #### C BC ####[facility] [address] [address]Dr. Moriah Schulz Eosinophils/100 WBC (Bld) 2.4 % Normal 0.9-7.0 [facility] Comment on above: Performed By: #### C BC ####[facility] [address] [place], [place] [address]Dr. Inatrang Schulz Erythrocyte distribution width (RBC) [Ratio] 13.4 % Normal 11.0-15.0 [facility] Comment on above: Performed By: #### C BC ####[facility] [address] [place], [place] [address]Dr. Moriah Schulz Hematocrit (Bld) [Volume fraction] 38.5 % Normal 36.0-48.0 [facility] Comment on above: Performed By: #### C BC ####[facility] [address] [address]Dr. Moriah Schulz Hemoglobin (Bld) [Mass/Vol] 12.4 g/dL Normal 12.0-16.0 [facility] Comment on above: Performed By: #### C BC ####[facility] [address] [address]Dr. Moriah Schulz IG # 0.05 10e3/ul Critically high 0.00-0.03 [facility] Comment on above: Performed By: #### C BC ####[facility] [address] [address]Dr. Moriah Schulz IG % 0.4 % Normal 0.0-0.5 [facility] Comment on above: Performed By: #### C BC ####[facility] [address] [address]Dr. Moriah Schulz LYMPH # 3.3 103/ul Normal 1.2-3.8 [facility] Comment on above: Performed By: #### C BC ####[facility] [address] [address]DrAdrienne Schulz Lymphocytes/100 WBC (Bld) 24.0 % Normal 20.5-60.0 [facility] Comment on above: Performed By: #### C BC ####[facility] [address] [address]DrAdrienne Schulz MANUAL DIFF REQ NO Normal [facility] Comment on above: Performed By: #### C BC ####[facility] [address] [address]DrAdrienne Schulz MCH (RBC) [Entitic mass] 28.6 pg Normal 26.7-34.0 [facility] Comment on above: Performed By: #### C BC ####[facility] [address] [address]Dr. Moriah Schulz MCHC (RBC) [Mass/Vol] 32.2 g/dL Normal 29.9-35.2 [facility] Comment on above: Performed By: #### C BC ####[facility] [address] [id number]. Moriah Schulz MCV (RBC) [Entitic vol] 88.9 fL Normal 81.0-99.0 [facility] Comment on above: Performed By: #### C BC ####[facility] [address] [place], [place] [address]DrAdrienne Schulz MONO # 0.7 103/ul Normal 0.3-0.8 [facility] Comment on above: Performed By: #### C BC ####[facility] [address] [place], [place] [address]Dr. Moriah Schulz Monocytes/100 WBC (Bld) 5.2 % Normal 1.7-12.0 [facility] Comment on above: Performed By: #### C BC ####[facility] [address]afvkt[address] [place], [place] [address]DrAdrienne Schulz NEUT # 9.1 103/ul Critically high 1.4-6.5 [facility] Comment on above: Performed By: #### C BC ####[facility] Nmqabuftrb[address] [place], [place] [address]Dr. Inatrang Schulz Neutrophils/100 WBC (Bld) 67.4 % Normal 43.0-75.0 [facility] Comment on above: Performed By: #### C BC ####[facility] Vfdobgthfl[address] [place], [place] [address]Dr. Moriah Schulz Platelet mean volume (Bld) [Entitic vol] 8.4 fL Critically low 9.5-13.5 [facility] Comment on above: Performed By: #### C BC ####[facility] Ulvpbwgxxx[address] [place], [place] [address]Dr. Moriah Schulz PLT 358 103/ul Normal 150-450 [facility] Comment on above: Performed By: #### C BC ####[facility] Mgjlziyzwp[address] [place], [place] [id number] Schulz RBC 4.33 106/ul Normal 4.20-5.40 [facility] Comment on above: Performed By: #### C BC ####[facility] [address] [place], [place] [address]CeAdrienne Moriah Schulz WBC 13.6 103/ul Critically high 4.0-11.0 [facility] Comment on above: Performed By: #### C BC ####[facility] [address] [id number] Schulz Covid-19 PCR (CVDTBH)on 07-16 SARS-CoV-2 (COVID-19) RNA TONY+probe Ql (Unsp spec) Not detected Normal NOT DETECTED [facility] Comment on above: Result Comment: When diagnostic [...] for this test is supported by the Filler Machine Operator of Health and Human Service's declaration that [...] longer be used). Performed By: #### C VDTBH #### [facility] [address] [address] [address] Moriah Schulz ER URINE PROFILEon 2 Bilirubin Ql (U) Negative Normal NEGATIVE [facility] Comment on above: Performed By: #### CHIN ROGER #### [facility] [address] [address] [address] Moriah Schulz Clarity (U) CLEAR Normal CLEAR [facility] Comment on above: Performed By: #### E CHIN RANKIN #### [facility] [address] [address] [address] Moriah Schulz Color (U) YELLOW Normal YELLOW [facility] Comment on above: Performed By: #### RAMON ROGERRO #### [facility] [address] [place] [address] Dr. Moriah Schulz ERUAHErinn A micrscopic examina tion will be performed if indicated. Normal [facility] Comment on above: Performed By: #### RAMON ROGERRO #### [facility] [address] [place] [address] Dr. Moriah Schulz Glucose Ql (U) Negative Normal NEGATIVE [facility] Comment on above: Performed By: #### RAMON ROGERRO #### [facility] [address] [place] [address] Dr. Moriah Schulz Hemoglobin Ql (U) SMALL Abnormal NEGATIVE [facility] Comment on above: Performed By: #### RAMON ROGERRO #### [facility] [address] [place] [address] Dr. Moriah Schulz Ketones Ql (U) Negative Normal NEGATIVE [facility] Comment on above: Performed By: #### RAMON ROGERRO #### [facility] [address] [place] [address] Dr. Moriah Schulz LEUKOCYTES Negative Normal NEGATIVE [facility] Comment on above: Performed By: #### RAMON ROGERRO #### [facility] [address] [place] [address] Dr. Moriah Schulz Nitrite Ql (U) Negative Normal NEGATIVE [facility] Comment on above: Performed By: #### CHRISTIAN ROGERICRO #### [facility] [address] [place] [address] Dr. Moriah Schulz pH (U) 5.5 [pH] Normal 5-9 [facility] Comment on above: Performed By: #### RAMON ROGERRO #### [facility] [address] [place] [address] Dr. Moriah Schulz SPEC GRAVITY >=1.030 Abnormal 1.005-<=1.0 25 [facility] Comment on above: Performed By: #### E MASSIEL, UMICRO #### [facility] [address] [place] [address] Dr. Moriah Schulz UA PROTEIN Negative Normal NEGATIVE/ TRACE [facility] Comment on above: Performed By: #### E MASSIEL, UMICRO #### [facility] [address] [place] [address] Dr. Moriah Schulz UR MICRO IND INDICATED Normal [facility] Comment on above: Performed By: #### E MASSIEL, UMICRO #### [facility] [address] [place] [address] Dr. Moriah Schulz Urobilinogen Qn (U) 0.2 {Hanny'U}/dL Normal 0.2 - 1. 0 [facility] Comment on above: Performed By: #### Moshe RANKIN, CHRISTIANICRO #### [facility] [address] [place] [address] Dr. Moriah Schulz INFLUENZA A AND B AGon 08-[facility] Normal [facility] Comment on above: Result Comment: Nega tive for Flu A protein angiten. Infection due to Flu A cannot be ruled out. Flu A angiten in the sample may be below the detection limit of the test. Performed By: #### I NFLUAB #### [facility] [address] [place] [address] Dr. Moriah Schulz INFLUBNEGH SEE BELOW Normal [facility] Comment on above: Result Comment: Nega tive for Flu B protein antigen. Infection due to Flu B cannot be ruled out. Flu B antigen in the sample may be below the detection limit of the test. Performed By: #### I NFLUAB #### [facility] [address] [place] [address] Dr. Moriah Schulz INFLUENZA A AG Negative Normal NEGATIVE SEE COMMENT [facility] Comment on above: Performed By: #### I NFLUAB #### [facility] [address] [place] [address] Dr. Moriah Schulz INFLUENZA B AG Negative Normal NEGATIVE SEE COMMENT [facility] Comment on above: Performed By: #### I NFLUAB #### [facility] [address] [address] [address] Moriah Schulz INTERNAL CONTROLS Within Normal Limits Normal Wi thin Normal Limits [facility] Comment on above: Performed By: #### I NFLUAB #### [facility] [address] [address] [address] Moriah Schulz PROF 14(COMP METB)on 022 Albumin [Mass/Vol] 3.5 g/dL Normal 3.4-5.0 [facility] Comment on above: Performed By: #### C MP ####[facility] [address] [address]Dr. Moriah Schulz Albumin/Globulin [Mass ratio] 1.0 {ratio} Normal [facility] Comment on above: Performed By: #### C MP ####[facility] [address] [address]Dr. Moriah Schulz ALP [Catalytic activity/Vol] 101 U/L Normal 46-116 [facility] Comment on above: Performed By: #### C MP ####[facility] [address] [address]Dr. Moriah Schulz ALT [Catalytic activity/Vol] 25 U/L Normal 14-59 [facility] Comment on above: Performed By: #### C MP ####[facility] [address] [address]Dr. Moriah Schulz Anion gap [Moles/Vol] 11.4 mmol/L Normal [facility] Comment on above: Performed By: #### C MP ####[facility] [address] [address]Dr. Moriah Schulz AST [Catalytic activity/Vol] 11 U/L Critically low 15-37 [facility] Comment on above: Performed By: #### C MP ####[facility] [address] [address]Dr. Moriah Schulz Bilirubin [Mass/Vol] 0.3 mg/dL Normal 0.2-1.0 [facility] Comment on above: Performed By: #### C MP ####[facility] [address] [id number]. Moriah Schulz Calcium [Mass/Vol] 8.9 mg/dL Normal 8.5-10.1 [facility] Comment on above: Performed By: #### C MP ####[facility] [address] [address]Dr. Moriah Schulz Chloride [Moles/Vol] 105 mmol/L Normal 98-107 [facility] Comment on above: Performed By: #### C MP ####[facility] B[address]qirdsztr[address] [place], [place] [address]Dr. Moriah Schulz CO2 [Moles/Vol] 27.3 mmol/L Normal 21.0-32.0 [facility] Comment on above: Performed By: #### C MP ####[facility] Agdgeboecf[address] [place], [place] [address]Dr. Moriah Schulz Creatinine [Mass/Vol] 0.91 mg/dL Normal 0.55-1.02 [facility] Comment on above: Performed By: #### C MP ####[facility] Km[address]unruvn[address] [place], [place] [address]Dr. Moriah Schulz EGFR-AF SCOTTISH >60 Normal >=60 [facility] Comment on above: Performed By: #### C MP ####[facility] Gr[address]osvoyv[address] [place], [place] [address]Dr. Moriah Schulz EGFR-NON AF SCOTTISH >60 Normal >=60 [facility] Comment on above: Performed By: #### C MP ####[facility] Umuwjgjtvv[address] [place], [place] [address]Dr. Moriah Schulz Globulin (S) [Mass/Vol] 3.5 g/dL Normal [facility] Comment on above: Performed By: #### C MP ####[facility] Ayyhepssxy[address] [place], [place] [address]Dr. Moriah Schulz Glucose [Mass/Vol] 104 mg/dL Normal 74-106 [facility] Comment on above: Performed By: #### C MP ####[facility] Rwpbihnsgh[address] [place], [place] [address]Dr. Moriah Schulz Potassium [Moles/Vol] 3.7 mmol/L Normal 3.5-5.1 [facility] Comment on above: Performed By: #### C MP ####[facility] [address] [address]Dr. Moriah Schulz Protein [Mass/Vol] 7.0 g/dL Normal 6.4-8.2 [facility] Comment on above: Performed By: #### C MP ####[facility] Br[address] [place], [place] [address]Dr. Moriah Schulz Sodium [Moles/Vol] 140 mmol/L Normal 136-145 [facility] Comment on above: Performed By: #### C MP ####[facility] [address]ispj[address] [place], [place] [address]Dr. Moriah Schulz Urea nitrogen [Mass/Vol] 15.0 mg/dL Normal 7.0-18.0 [facility] Comment on above: Performed By: #### C MP ####[facility] [address]ttiy[address] [place], [place] [address]Dr. Moriah Schulz Urea nitrogen/Creatinine [Mass ratio] 16.5 mg/mg Normal [facility] Comment on above: Performed By: #### C MP ####[facility] [address] [place], [place] [address]Dr. Moriah Schulz URINE MICROSCOPIC ONLYon BACTERIA TRACE Abnormal NONE SEEN [facility] Comment on above: Performed By: #### CHIN ROGER ####[facility] [address] [place], [place] [address]Dr. Moriah Schulz Bacteria identified Cx Nom (U) NOT INDICATED Normal [facility] Comment on above: Performed By: #### CHIN ROGER ####[facility] [address] [place], [place] [address]Dr. Moriah Schulz CAST NONE SEEN Normal NONE SEEN [facility] Comment on above: Performed By: #### CHIN ROGER ####[facility] [address] [place], [place] [address]Dr. Moriah Schulz Crystals LM Nom (Urine sed) NONE SEEN Normal NONE SEEN [facility] Comment on above: Performed By: #### E RUR, UMICRO ####[facility] [address] [id number]. Moriah Schulz Epithelial cells LM Ql (Urine sed) MODERATE Abnormal NONE SEEN /RARE [facility] Comment on above: Performed By: #### E RUR, UMICRO ####[facility] [address] [id number]. Moriah Zeus MUCOUS NONE SEEN Normal NONE SEEN [facility] Comment on above: Performed By: #### E RUR, UMICRO ####[facility] [address] [address]Dr. Moriah Schulz RBC 2-5 Abnormal 0-2 [facility] Comment on above: Performed By: #### E RUR, UMICRO ####[facility] [address] [address]Dr. Moriah Schulz WBC 2-5 Abnormal NONE SEEN [facility] Comment on above: Performed By: #### E RUR, UMICRO ####[facility] [address] [id number]. Moriah Schulz XR CHEST 1 Von 08-12-2021 [...] LAURA PARKER Date: 2021-08-12 15:05 Normal [facility] Q - VARICELLA-ZOSTER AB (IGG )on 07-10-2021 VARICELLA ZOSTER VIRUS ANTIBODY (IGG) 1373.00 index Normal [facility] Manager Comment on above: Order Comment: [facility] performed at: QPT, [facility], [address] [place] [address], [address] [place] [address], [id number], Supervisor [place]: Cresencio Bella MD [facility] Collection Date/Time: [id number] [facility] Results Received Date/Time: [facility] Reported Date/Time: [...] 4 439 #### [facility] Default [address] [place] [address] Coding Summary.on 08-07-2020 Coding Summary. CD:[id number] Gh0bWw +PGhlYWQ+ZD5NNXWoJ18nfXLrx S1VF4zHIY2WDTYFGQSIWI4UEQ8 tsVI2YUwrK9LbepFx KgvecYTuEW70ZRf9EJV0bQqhYH qfqP7qvURaL5j4EhCvDO51nW10 HCjfQKOqZnB6DcGwibkwuHLn O8ooNxSwsSLrZun+PHRhYmxlIH zxFDBjPUtrKUHsOiGrfHcyDR7x Jc0gNYBiCFYwmUckoDDiLyEt t1myETFsNBuuKP5ebVrzV7LjtZ W2EFGbh5d9Fu84lIE+PHRkIHN0 uHslYQxkv471TkGki8szDJE6 xGKpHAtoAAJ3N15bp6Y2AJGqHX UmYEF4qAE1jJ1vkItoowmjH5Mx vTLiCoI0KWW2rKBlpY5tdDqs iusoqI0sQan+R27BNK5QHLUQTB 0MXvi8Y8JiKnxriXU+GW01VHAh VZ26qEQlzXYsq7vdoHb6OyDt PFAfQJS7oEidLKtyo3AxJAKwK1 5ypDRnf5E8UDEfwIhhyRJzFwCm nZV0fO5rTJxtvqrjg8ykxtxh Yceqt2odle18aS28J33fDNsiJJ PnUVU8LOBePQTmdQdylt5mmC5r Ii8+XGguc2jii8keoMi4RtMr MFXducGfyJrpSIB4i3QzHw67S8 ItoGxze9RyBvd3ll85sEHus0C4 yDT7IJzmUWFkkW2oTRsaSdX2 WKCkEbHccH10rMSjMIvxSe4jzC rrbXzqOQ0xFBTekxywKJHqxV1p FMWquOQkmFarWT3zQIDxsxcz u085VvTqPDM8WAUgvMPiB0TihJ 2dTrVyQZAxYGJrJ6EcoRNwDKdy S349LPjgYuC1JLHjjkVkR1Kb QHMkpYwrDvM4d1C8Df9Kn8Fxqo ywLXL7DBodSVT3KnF8GcRrUpH9 W0VrBoz4KBHqbIcjXB3iI5Sa HNEcehsrnunarET8DXIbQWPajR 92fFAxQEqxSm5gz1I2z158YUGv WKGjnW00Kx7yjWicTPFuxDVC lV1shtkyf7zcfrpeBrUxMXBdIR q0NQo8MXIqlDfoBiYrYIH5HvA5 SXY8eGOgwS0elUtvndxgzQ1d Oyc+Z06awT4xBFJ5BCL4vqvySQ ImctYgEN76SF40T5RmZwjveLEm bGU+NBRkygBezBksFI1cGnRq z5xav4TsSAqnC8JlSAEnTXvrXy t8WYGdFMO9kBC8eT7bAXCmCYur h1S0aRQ2J1UfflUjbh6sm4bg IJGwVNrbV19jzERmg5L5YHInlS N5RDBakQsaBwDwhB21Tud+PGNv fNadq9ImBujtw3pzh5tfbYb5 EmMzQNHnwvHrcQyaEJJ9j5AeYy 46G07dXHprUZGxLPKpQEWyGIMw yYtnum4ezQ5vKh9+PGNvbCB3 iEE7hX0mQGTvEtB0PAdfT639Zt AszSNbYyrpr9hmk0htgHq1HbLo DPEikfXjbTrkJRB0j4JxMp54 X28lMZqzXHPqAVYgAXZlDDKmtZ nqvb2xiL7nMo0+QY2lj4rvhg28 nY00aSD+GEHzHKH5tCtkZTag LSRpmD9xTGamApC7HADyOqPvpE 94kYZqBNknSm4aiZztjZhfZN1h GTGndjczg609EqJgl3tzIYOs sLBrXTumVRZ6Z05vs5Q4IYLyJV JzWTA5uHC8nM4ivMaoaezqnQIt tCoicyNnlPteNDtrOUgvF803 IHRvcDsnPlBhdGllbnQgTmFtZT u6Z3NeJyg1IKAtjRdvEP2xoHQo UPypPe7hmYjwbWbxOW1eZYYl wbdae327XhSuj4vdBGYzcOAdLX veTGK2J87ss4A3AVNwAAEtWAW4 gNT9cC9rmKmyxwdwbLHfiZox hpCyvLrdFGweBFopW777FLTtuT acNwWuowMlZCNowDN0SQ15PU63 gIJzt7S8qPB6J2UrOZCgoeav besopFY7RLWzFDHjjQ41Hh8gdE geZu0vZOZhZSV2NYTvhIYtW2Uh eK1gDsYuOFDvDNXyG2ErvULo EKmqK252EIjvFaF4LQHclyJvB1 LnRAYyqKlnTvZ9v3A8Wf2ZH8Q6 ZJ66AB35kTGfh0R7vVW9E9Ma JTVyzpnnfnoclMA6FWEiDBCbeN 16Gx5gjOmpZw4oDCTbEDQ1HYDy wSLyS9EkrL3rHdAdOKSoYFRm I2QcsDOwMLbhR098RMdeOsQ3PB GtrvIhE2ToKQXvtGiaQbX6x1I0 Rg6BXSs0HP16UM97fYDcw7V9 vMW7W9TgXQSctcutzfoypJA8XH HiKHZxwF86Qi5weMqaFh1fRJNy FLB0XVGfxTDtQ0JxpD6uMeDk ROVbEHFbX4TlcMRfDYjoQ536FC koSxZ2ZANhmhKyL2NbOBKrtOoa ArN3y0K0Zv3LUYFeVN67RLG6 eVL7CF97TL58R3YuCplkkBNpwN U+PHRhYmxlIHdpZHRoPScxMDAl BhXujPyzTN4vWl2tQEEzMEFg uVrsdWHwPsOhj0ruDHSxLVveCG 1pfNvyR7CfwUW7IOFcn9n8Ic20 U23mF1RekSH+VASxfGI5qKJ0 pG1aXvAeYmS6HAcbL997TcYleI DtHkfap1yyk4aacEh0XdH1BTUn ydTkwOjmNSW3i6RhKc49R73c IHdpZHRoPSIxNSUiIHZhbGlnbj 0prR3lSi1+JNPinIG9gWU2zU7g ThCrCgA3MLjlP153DtFxyCFx Chhkm5tiy6bmqQp1VhVcPYNihg LcaXrvYYZ1k0YjUz63Y2GdcJub a0QhRnj1ab46wDZtf3X5fCN2 M4HlQGUjxgqofABdhFvnXF5aJK UalfuoQOLlnN5qSXSbA6q5LuOv AnH4SYguX6DipcX3ZQVvqUUq OCmvDAU7B32vf7L1ANUiOWGmCG C8hOB8hN0wsSeqngwcmQBtrRwz lnDioVaaHNybQWpxK473BKWf hHaeEMWpwS7sSZLwuVGxxWbhDB 4gBWPbswvvJyVTXIswNQ8HObVS IZE8D8ZmKzp8NVRriKrnCA6e uHMxINukAq4odLrlkGsgPO1eIU SfxqelXJDwoE2oUIYhrCSeqMxx YH5cHHPnplwyr461EaDsKCI4 YFCltONaL5OfyB2hOhEeAXXrMZ JlA5DbaUXsBAfzI245CXcsPbF3 YOXdhiTgF1AjUJTkiPkuKoA0 p7Q0Pd9mXo2eXS4xOAosEF40WD 32cRZuk3P2yZR2S8AzNHQeorze sxfxmQI6FVZbDIMijK01jYOv YWehWp5fz4M4n209PWSwLJAtkU 30Bx2dyQuaSGPopCWQiJ7iacwe z7ubqkypUvBqXEPbTCi5CLz5 XAAorAsdZoCwZWF0IqR7RKD6dV AkhP1daBwgkyhnbY8jXpw+Mzkg HRUhliX6J4QdLzr0INVtwQia XR1ymAJrASncGs5uhYsvsMosEO 0yYFIpetasCMJatC7kQLTdrOHm uHdbDO0pHFZlnlcop080ScZb YNR5BXMusZNlT9HrsV8bVhBjDQ ErOEEfK0EmhCUwKMraO597GCzj OfU2HMQfivYyW7KcRVMmhUck KsC2z4U7Gj5FFD4ssXS6B1CbLl z8QNKdyMlzQT3wfSTyQCayDu5e eAqyqTlyIY1zAYZnvnfbKQIx vP5yNTLwiZSxiRevDQ0uXJSaed ztb783XmGnUPW1CXZnvUDuV2An uR2fPcMhIUMzGQUvF6EeyGVt NRszN305TMhfBnW9EIBycxPkW4 IyKTUzqNsaSkH7y5Y0Db6XvTHe Y5FpN5t8B9GiUxtdrLU+PC90 GEYqKK79tAYtdYRmr5zioDa2Kw KnXGHgHRF1gNpgIGpgs3MyBWFp O95brPIza3I8CIHwtChysVLq EdHgtTW4tP8jUSxvqhfkg5zddf ghTzgxz5pvgu33eG60F77vNCsv DIPmBJZmTVHpFJXbaDjrqe0r kB2qGu6+RRZoxAA4oXX5xN1nBt ShBjS8THbkS228PvShtWUrFlce g2ltj7vyiIo7IpOoEGGewqSt oOodHSD9e5CzAg66R01fLMffNY LiDWBbBVQfOLQrtJtlhh3bfS2e Ii8+CI4rg3aemi76eA27oHZ+ CVBuYRH2wHfzFCkwNPSyiR8lLO reIwX8TPDsBjVylX39vTFiKIhy Nf6amHkphJldZX4lZVRvlpdz p979LmSom7owTTBdyVYlHMeeQS T2X16lj2M1EISgEBEzIPF8vQT6 zN9nrJzdgixxsXJeuGrgznRd eIytGUeqPEeiG236BUOngSgoBf AjzSHiC9mwihSWZD4aQdjczUL+ OQBcKYU1xCorXPydWCRsqW3y BNTkA6u1DtDdOnX9JLtyD5Nrmw L1GAXojQDfEZYnhZURvM5aqsir z4hkyjhuXuBwQBVzDLy6SRx8 WROomYuhPnPjZKJ0GxO8BHA6cY MjoG6qdYyznsvjaF9fPzn+RklO OjwvdGQ+CKBxKCW9kLokOGvw FJMnhU3sVBUjY0w4YdSaHrE2QK tiQ1HtswQ5UCXktFXsBZXpmDDV wD6omcdei7jltmtsLaLiUPCx QQv6AXz0TSTxlJrmNqZpUYM1Aq J9GJO5iUDxgD4cuEeodttugC1x Oyc+TVJOOjwvdGQ+PHRkIHN0 yYpeMEiiXVPraW6qWIOaM1a1Ze ZwSlZ9SSthR2IluvD4SHAidQSa SBAhsUECxE0juqbrs4hlpges KrPkMXXrAOf3YYr1JMGkgYudSs IvWEV3DqM4GNZ9aJBlhM7hpOpw ibkdpX1xKnw+FIK3UQU1LZ08 DT38O4SdMyveiGCqkZC+PHRhYm xlIHdpZHRoPScxMDAlJyBzdHls QW5yQr8fYZHsQXGtbXxdbXKe OiBj (more content not included)... Normal [facility] Auto Diffon 07-28-2020 Basophils/100 WBC (Bld) 0.5 % Normal 0.0-2.0 [facility] Comment on above: Order Comment: Order Added by Discern Expert. Performed By: #### 1 [id number], [id number], [id number], 4995941, 0632817, 6774620, [id number] #### [facility] [address] [place] [address] Basophils/Leukocytes Auto (Bld) [Pure # fraction] 0.1 E9/L Normal 0.0-0.2 [facility] Comment on above: Order Comment: Order Added by Discern Expert. Performed By: #### 1 [id number], [id number], 8015142, 5916359, 8364090, 1750357, [id number] #### [facility] [address] [place] [address] Eosinophils/100 WBC (Bld) 0.1 % Normal 0.0-8.0 [facility] Comment on above: Order Comment: Order Added by Discern Expert. Performed By: #### 1 [id number], [id number], 9320046, 4363565, 0430578, 8405796, [id number] #### [facility] [address] [place] [address] Eosinophils/Leukocytes Auto (Bld) [Pure # fraction] 0.0 E9/L Normal 0.0-0.5 [facility] Comment on above: Order Comment: Order Added by Discern Expert. Performed By: #### 1 [id number], [id number], 1616513, 3645468, 8210706, 8982725, [id number] #### [facility] [address] [place] [address] Lymphocytes/100 WBC (Bld) 13.7 % Low 14.0-50.0 [facility] Comment on above: Order Comment: Order Added by Discern Expert. Performed By: #### 1 [id number], [id number], 1583279, 1786287, 0668793, 1835827, [id number] #### [facility] [address] [place] [address] Lymphocytes/Leukocytes Auto (Bld) [Pure # fraction] 1.5 E9/L Normal 1.0-4.0 [facility] Comment on above: Order Comment: Order Added by Discern Expert. Performed By: #### 1 [id number], [id number], 2316623, 8433706, 6205728, 4189364, [id number] #### [facility] [address] [place] [address] Monocytes/100 WBC (Bld) 2.3 % Low 4.0-14.0 [facility] Comment on above: Order Comment: Order Added by Discern Expert. Performed By: #### 1 [id number], 46057328, 7467766, 5295962, 3263627, 3875244, [id number] #### [facility] [address] [place] [address] Monocytes/Leukocytes Auto (Bld) [Pure # fraction] 0.2 E9/L Normal 0.2-1.0 [facility] Comment on above: Order Comment: Order Added by Discern Expert. Performed By: #### 1 [id number], [id number], 7448787, 2314109, 1926603, 0649861, [id number] #### [facility] [address] [place] [address] Neutrophils/100 WBC (Bld) 83.4 % High 36.0-75.0 [facility] Comment on above: Order Comment: Order Added by Discern Expert. Performed By: #### 1 [id number], [id number], 6670388, 0327333, 8048842, 8159729, [id number] #### [facility] [address] [place] [address] Neutrophils/Leukocytes Auto (Bld) [Pure # fraction] 8.8 E9/L High 2.0-7.5 [facility] Comment on above: Order Comment: Order Added by Discern Expert. Performed By: #### 1 [id number], 84235547, 0085974, 6891583, 2184935, 7364009, [id number] #### [facility] [address] [place] [address] [facility] 07-28-2020 Creatinine [Mass/Vol] 1.0 mg/dL Normal 0.5-1.3 [facility] Comment on above: Performed By: #### 1 [id number], 68148670, 7159197, 1807274, 4019479, 7242159, 13509884 #### [facility] [address] [place] [address] Urea nitrogen [Mass/Vol] 13 mg/dL Normal 5-21 [facility] Comment on above: Performed By: #### 1 [id number], 38089522, 3141923, 9177946, 6615001, 7401105, 67662213 #### [facility] [address] [place] [address] Urea nitrogen/Creatinine [Mass ratio] 13 No Units Normal 10-20 [facility] Comment on above: Performed By: #### 1 [id number], 51791288, 3429500, 8905770, 4972216, 4043207, 35642185 #### [facility] [address] [place] [address] Anion gap [Moles/Vol] 15 mmol/L Normal 6-16 [facility] Comment on above: Performed By: #### 1 [id number], 39605462, 1955654, 0843172, 3237167, 6275412, 35269124 #### [facility] [address] [place] [address] Calcium [Mass/Vol] 7.9 mg/dL Low 8.9-11.1 [facility] Comment on above: Performed By: #### 1 [id number], 53528081, 5135255, 9578885, 8401837, 0051994, 15284264 #### [facility] [address] [place] [address] Chloride [Moles/Vol] 98 mmol/L Low 101-[address] [facility] Comment on above: Performed By: #### 1 [id number], 87168662, 4570925, 3732799, 5119312, 3262779, 37844487 #### [facility] [address] [place] [address] CO2 [Moles/Vol] 25 mmol/L Normal 21-31 [facility] Comment on above: Performed By: #### 1 [id number], 98242224, 1548486, 6359989, 8278840, 0090416, 44821485 #### [facility] [address] [place] [address] Glucose [Mass/Vol] 104 mg/dL Normal 55-199 [facility] Comment on above: Result Comment: If t his glucose result represents a fasting glucose, interpretation should refer to the following reference range: 55-99 mg/dL Performed By: #### 1 [id number], 72449173, 2312566, 0964797, 1667625, 1583176, 64557956 #### [facility] [address] [place] [address] Potassium [Moles/Vol] 2.9 mmol/L Low 3.5-5.3 [facility] Comment on above: Performed By: #### 1 8048447, 51006481, 0059558, 4854498, 2772687, 1839048, 96708104 #### [facility] [address] [place] [address] Sodium [Moles/Vol] 135 mmol/L Normal 135-145 [facility] Comment on above: Performed By: #### 1 8783816, 42081758, 4617937, 8861434, 0904984, 2217705, 69283002 #### [facility] [address] [place] [address] CBC w/ Auto Diffon 1 Erythrocyte distribution width (RBC) [Ratio] 15.2 % High 10.9-14.2 [facility] Comment on above: Performed By: #### 1 3669065, 17906864, 3940621, 7380042, 2037504, 5145376, 27040561 #### [facility] [address] [place] [address] Hematocrit (Bld) [Volume fraction] 36.7 % Normal 34.0-46.0 [facility] Comment on above: Performed By: #### 1 [id number], [id number], 4754512, 1019497, 3120708, 8460834, [id number] #### [facility] [address] [place] [address] Hemoglobin (Bld) [Mass/Vol] 12.3 g/dL Normal 12.0-16.0 [facility] Comment on above: Performed By: #### 1 [id number], [id number], 7169607, 0518744, 6841093, 7177458, 11921754 #### [facility] [address] [place] [address] MCH (RBC) [Entitic mass] 28.1 pg Normal 27.0-34.0 [facility] Comment on above: Performed By: #### 1 [id number], 87529826, 6428366, 8274633, 7685968, 6256774, 46030857 #### [facility] [address] [place] [address] MCHC (RBC) [Mass/Vol] 33.4 g/dL Normal 31.4-36.0 [facility] Comment on above: Performed By: #### 1 [id number], 61105075, 7190958, 4182044, 0529997, 8519362, 36180239 #### [facility] [address] [place] [address] MCV (RBC) [Entitic vol] 84.1 fL Normal 80.0-100.0 [facility] Comment on above: Performed By: #### 1 [id number], 19776674, 0518326, 6732247, 0183398, 6636088, 71034854 #### [facility] [address] [place] [address] Platelet mean volume (Bld) [Entitic vol] 6.6 fL Normal 6.4-10.8 [facility] Comment on above: Performed By: #### 1 [id number], 55858098, 7570823, 7348849, 5573702, 5687205, 26595536 #### [facility] [address] [place] [address] Platelets (Bld) [#/Vol] 203.0 E9/L Normal 150.0-500.0 [facility] Comment on above: Result Comment: Plat elet count verified using smear estimate Slide reviewed by [email or web address]. Performed By: #### 1 5291013, 19561198, 3593008, 5581586, 4154659, 9269209, 69909621 #### [facility] [address] [place] [address] RBC (Bld) [#/Vol] 4.4 E12/L Normal 4.3-5.9 [facility] Comment on above: Performed By: #### 1 4814505, 07938078, 3185492, 2787838, 4788516, 7829592, 49492142 #### [facility] [address] [place] [address] WBC corrected for nucl RBC Auto (Bld) [#/Vol] 10.6 E9/L Normal 4.0-11.0 [facility] Comment on above: Performed By: #### 1 5276842, 17795433, 9728850, 0675862, 6811951, 7507942, 98752240 #### [facility] [address] [place] [address] CTA Cheston 07-28-2020 CTA Chest Exam Date/Time: [...] 370 Contrast amount in ml's: 75 Normal [facility] D-Dimeron 07-28-2020 Fibrin D-dimer FEU (PPP) [Mass/Vol] 1122 ng/mL Abnormal 215-500 [facility] Comment on above: Result Comment: Resu lts [...] infections Liver cirrhosis Performed By: #### 1 [id number], 57798834, 5898162, 6990765, 4355416, 1332007, 07094715 #### [facility] [address] [place] [address] Discharge Instructionson Discharge Instructions [id number]:127 Normal [facility] ED Clinical Summaryon 2020 ED Clinical Summary (Inserted Image. Alaina ble to display) [address] [address] ED Clinical Summary Person Information Name: DELICIA SERRANO [place] Age: 40 Years : 1980 Sex: Female Language: Malay PCP: CORRINE ORDAZ MD Marital Status: Single [...] 07/28/2020 02:18:35 07/28/2020 02:18:35 07/28/2020 02:18:35 ADDRESS: [facility] [address] [facility] [id number] PHYS DOC NOTES: MEDICAL INFORMATION: Prescriptions Given: PATIENT EDUCATION INFORMATION: Instructions: COVID-19 Frequently Asked Questions Follow up: With: Address: When: CORRINE ORDAZ [address] [place], [place] [id number] Business (1) In 3 days 07/31/2020 Comments: Call your doctor Thursday to schedule for monoclonal atibodies. return if breathing worsens as discussed. monitor your oxygen level at home as discussed DIAGNOSIS: 1:Upper respiratory infection; 2:Pneumonia due to COVID-19 virus Normal [facility] ED Note-Physicianon 07-29-19 ED Note-Physician Basic Information [...] Therapy PT & PTT Rapid COVID Antigen ([facility]) Saline Lock Insert Troponin 0 Hr. Troponin [...] 84.1 fL (07/27/20 22:10:00) MCH: 28.1 pg (07/27/20 22:10:00) MCHC: 33.4 gm/dL (07/27/20 22:10:00) RDW: 15.2 % High (07/27/20 22:10:00) Platelet: 203 E9/L (07/27/20 22:10:00) MPV: 6.6 fL (07/27/20 22:10:00) Neutro Auto: 83.4 % High (07/27/20 22:10:00) Lymph Auto: 13.7 % Low (07/27/20 22:10:00) Mora Auto: 2.3 % Low (07/27/20 22:10:00) Eos Auto: 0.1 % (07/27/20 22:10:00) Basophil Auto: 0.5 % (07/27/20 22:10:00) Neutro Absolute: 8.8 E9/L High (07/27/20 22:10:00) Lymph Absolute: 1.5 E9/L (07/27/20 22:10:00) Mora Absolute: 0.2 E9/L (07/27/20 22:10:00) Eos Absolute: 0 E9/L (07/27/20 22:10:00) Basophil Absolute: 0.1 E9/L (07/27/20 22:10:00) PT: 13.7 second(s) High (07/27/20:10:00) INR: 1.2 (07/27/20:10:00) PTT: 21.2 second(s) Low (07/27/20:10:00) D-Dimer: 1122 ng/mL Critical (07/27/20 22:10:00) Glucose Lvl: 104 mg/dL (07/27/20:10:) BUN: 13 mg/dL (07/27/20:10:) Creatinine: 1 mg/dL (07/27/20:10:) eGFR: >60 (07/27/20::) eGFR AA: >60 (07/27/20) BUN/Creat Ratio: 13 (07/27/20::) Sodium Lvl: 135 mmol/L (07/27/20:10:) Potassium Lvl: 2.9 mmol/L Low (07/27/20:10:) Chloride: 98 mmol/L Low (07/27/20:10:) CO2: 25 mmol/L (07/27/20:10:) AGAP: 15 mEq/L (07/27/20::) Calcium Lvl: 7.9 mg/dL Low (07/27/20:10:00) Troponin: 3.5 pg/mL Low (07/27/20:10:00) Rapid COVID Ag: Detected Critical (07/27/20:55:00) Rapid COV Int NEG Ctl: Pass (07/27/20:55:00) Rapid COV Int POS Ctl: Pass (07/27/20:55:00) First Test: Unknown (07/27/20:55:00) Employed in Healthcare: NO (07/27/20:55:) Symptomatic as defined by CDC: YES (07/27/20:55:00) Hospitalized?: NO (07/27/20:55:00) ICU: NO (07/27/20:55:00) Resides in a Congregate Care Setting: NO (07/27/20:55:00) ?: Unknown (07/27/20 21:55:00) Diagnostic Results XR Chest Single View * Preliminary * 07/28/20 00:51:58 POSITIVE: diffuse mild infiltrat (more content not included)... Normal [facility] Comment on above: Result Comment: Elec tronically Signed By: Felipe Baez MD\.br\Date and Time Signed: 07/28/20 00:53 EDT ED Patient Summaryon 021 ED Patient Summary (Inserted Image. Alaina ble to display) [address] [address] Patient Discharge Instructions Person Information Name: DELICIA SERRANO Age: 40 Years Arrival Date: 07/27/2020 21:19:07 Discharge Diagnosis: 1:Upper respiratory infection; 2:Pneumonia due to COVID-19 virus Primary Care Physician: CORRINE ORDAZ MD Provider Information Primary Provider: Felipe Baez MD Advanced Camera Machinist:None The exam and treatment you received in the Emergency Department were for an urgent problem and are not intended as complete care. It is important that you follow up with a doctor, nurse practitioner, or physician?s staff physical therapy assistant for ongoing care. If your symptoms [...] Follow-up Instructions: With: Address: When: CORRINE ORDAZ [address] [place] [address] [phone] [facility] (1[employer] [facility] In 3 days 07/31/2020 Comments: Call your [...] opioids can be used to help relieve snrytaws-wn-yycbur pain and are often prescribed following a [...] of opioids (more content not included)... Normal [facility] PT & PTTon 07-28-2020 aPTT Coag (PPP) [Time] 21.2 second(s) Low 25.1-36.5 [facility] Comment on above: Result Comment: Hepa rin therapeutic range (represented by Anti-Factor Xa activity of 0.2 - 0.4 U/mL) corresponds to PTT of 56.6 - 109.0 sec. Performed By: #### 1 [id number], 97578787, 3423465, 3737108, 3031078, 7610333, 00124685 #### [facility] [address] [place] [address] INR Coag (PPP) [Relative time] 1.2 {INR} Invalid Interpretation Code [facility] Comment on above: Result Comment: INR results are specifically intended to assess patients stabilized on long-term Anticoagulation therapy suggested INR?s ?Less Intensive Anticoagulation? 2.0 ? 3.0 Conventional Range 3.0 ? 4.5 Performed By: #### 1 [id number], 10072468, 4555846, 2653174, 7888008, 1598534, 39656907 #### [facility] [address] [place] [address] PT Coag (PPP) [Time] 13.7 second(s) High 10.2-12.9 [facility] Comment on above: Performed By: #### 1 [id number], 47765411, 3969939, 3543661, 1415411, 4539400, 00199749 #### [facility] [address] [place] [address] RAD - Preliminary Cat Scan R eporton 07-28-2020 RAD - Preliminary Cat Scan Report [id number]:127 Normal [facility] Rapid COVID Antigen ([facility])on 07-28-2020 Rapid COV Int NEG Ctl Pass Normal [facility] Comment on above: Performed By: #### 2 [id number] #### [facility] [address] [place] [address] Rapid COV Int POS Ctl Pass Normal [facility] Comment on above: Performed By: #### 2 [id number] #### [facility] [address] [place] [address] SARS-CoV-2 (COVID-19) RNA TONY+probe Ql (Unsp spec) Detected Abnormal Not Detected [facility] Comment on above: Result Comment: Resu lts Called To [employer] By [id number] And Read Back For Confirmation On 07/27/2020 22:20:45 EDT. Results faxed to [facility]. The [employer] Veritor? System for Rapid Detection of SARS-CoV-2 is [...] or revoked sooner. Performed By: #### 2 [id number] #### [facility] [address] [place] [address] Troponin 0 Hr.on 07-28-2020 Troponin I.cardiac [Mass/Vol] 3.50 pg/mL Low 10.10-27.10 [facility] Comment on above: Result Comment: The 95% CI (Confidence Interval) PPV (Positive Predictive Value) for myocardial infarction in females is 38 pg/mL, in males 51 pg/mL. The results should be used in conjunction with clinical conditions of myocardial infarction. (Access High Sensitivity Troponin I Instructions For Use, [employer], October 2017) Performed By: #### 1 [id number], 32739364, 8260939, 0982191, 4239399, 9841920, 77125947 #### [facility] [address] [place] [address] XR Chest Single Viewon 07-28 XR Chest [...] Vladislav Jeffery MD Transcribed by: KATHY Technologist: RAB Normal [facility] eGFRon 07-28-2020 GFR/1.73 sq M.predicted among blacks MDRD (S/P/Bld) [Vol rate/Area] mL/min/{1.73_m2} Normal >=59 [facility] Comment on above: Order Comment: Order added by Discern Expert. Result Comment: eGFR is race adjusted. AA=. Performed By: #### 1 [id number], 13861217, 4870990, 5421780, 4952150, 5019004, 51604927 #### [facility] [address] [place] [address] GFR/1.73 sq M.predicted among non-blacks MDRD (S/P/Bld) [Vol rate/Area] mL/min/{1.73_m2} Normal >=59 [facility] Comment on above: Order Comment: Order added by Discern Expert. Result Comment: Operations Tech cassie kidney disease could be indicated at eGFR's of less than 60 mL/min/1.73m2. Kidney failure is indicated at less than 15 mL/min/1.73m2. Performed By: #### 1 [id number], 90762530, 5364914, 3801720, 4301392, 6858440, 87010305 #### [facility] [address] [place] [address] Consent for Treatmenton 07-14 Consent for Treatment [id number]:127 Normal [facility] Physician Orderon 07-27-2020 Physician Order [id number]:127 Normal [facility] Rapid COVID Antigen ([facility])on 07-27-2020 Employed in Healthcare NO Normal [facility] Comment on above: Performed By: #### 2 [id number] #### [facility] [address] [place] [address] First Test Unknown Normal [facility] Comment on above: Performed By: #### 2 [id number] #### [facility] [address] [place] [address] Hospitalized? NO Normal [facility] Comment on above: Performed By: #### 2 [id number] #### [facility] [address] [place] [address] ICU NO Normal [facility] Comment on above: Performed By: #### 2 [id number] #### [facility] [address] [place] [address] ? Unknown Normal [facility] Comment on above: Performed By: #### 2 [id number] #### [facility] [address] [place] [address] Resides in a [facility] Care Setting NO Normal [facility] Comment on above: Performed By: #### 2 [id number] #### [facility] [address] [place] [address] Symptomatic as defined by CDC YES Normal [facility] Comment on above: Performed By: #### 2 [id number] #### [facility] [address] [place] [address] Vital Signs Date Time Vital Sign Value Performing Clinician Vanessa garcia 03-26-2023 10:10-0500 Diastolic blood pressure 70 mm[Hg] MD Boyd Herrera Work Phone: [facility] 03-26-2023 10:10-0500 Heart rate 71 /min MD Boyd Herrera Work Phone: [facility] 03-26-2023 10:10-0500 Respiratory rate 16 /min MD Boyd Herrera Work Phone: [facility] 03-26-2023 10:10-0500 SaO2% (BldA) [Mass fraction] 96 % MD Boyd Herrera Work Phone: [facility] 03-26-2023 10:10-0500 Systolic blood pressure 118 mm[Hg] MD Boyd Herrera Work Phone: [facility] 03-26-2023 08:30-0500 Body height 157.48 cm MD Boyd Herrera Work Phone: [facility] 03-26-2023 08:30-0500 Body weight 99.79 kg MD Boyd Herrera Work Phone: [facility] 02-20-2023 10:30-0500 Body weight 105.23 kg MD Boyd Herrera Work Phone: [facility] 02-20-2023 10:30-0500 Diastolic blood pressure 81 mm[Hg] MD Boyd Herrera Work Phone: [facility] 02-20-2023 10:30-0500 Respiratory rate 16 /min MD Boyd Herrera Work Phone: [facility] 02-20-2023 10:30-0500 SaO2% (BldA) [Mass fraction] 98 % MD Boyd Herrera Work Phone: [facility] 02-20-2023 10:30-0500 Systolic blood pressure 126 mm[Hg] MD Boyd Herrera Work Phone: [facility] 11-20-2022 10:35-0400 Body temperature 97.8 [degF] MD Boyd Herrera Work Phone: [facility] 11-20-2022 10:35-0400 Body weight 107.5 kg MD Boyd Herrera Work Phone: [facility] 11-20-2022 10:35-0400 Diastolic blood pressure 74 mm[Hg] MD Boyd Herrera Work Phone: [facility] 11-20-2022 10:35-0400 Heart rate 84 /min MD Boyd Herrera Work Phone: [facility] 11-20-2022 10:35-0400 Respiratory rate 16 /min MD Boyd Herrera Work Phone: [facility] 11-20-2022 10:35-0400 SaO2% (BldA) [Mass fraction] 98 % MD Boyd Herrera Work Phone: [facility] 11-20-2022 10:35-0400 Systolic blood pressure 106 mm[Hg] MD Boyd Herrera Work Phone: [facility] 11-04-2022 13:50-0400 Body temperature 97.8 [degF] MD Boyd Herrera Work Phone: [facility] 11-04-2022 13:50-0400 Body weight 109.31 kg MD Boyd Herrera Work Phone: [facility] 11-04-2022 13:50-0400 Diastolic blood pressure 75 mm[Hg] MD Boyd Herrera Work Phone: [facility] 11-04-2022 13:50-0400 Heart rate 104 /min MD Boyd Herrera Work Phone: [facility] 11-04-2022 13:50-0400 Respiratory rate 16 /min MD Boyd Herrera Work Phone: [facility] 11-04-2022 13:50-0400 SaO2% (BldA) [Mass fraction] 98 % MD Boyd Herrera Work Phone: [facility] 11-04-2022 13:50-0400 Systolic blood pressure 112 mm[Hg] MD Boyd Herrera Work Phone: [facility] 11-04-2022 13:30-0400 Body height 157.48 cm MD Boyd Herrera Work Phone: [facility] Encounters Encounter Date Encounter Type Care Provider Facility Start: 12-18-2023 End: 12-18-[address] [facility] Start: 12-15-[address] [facility] Start: 12-02-2023 End: 12-02-2023 ambulatory DISHA DILLARD Not Available Start: 10-27-2023 End: 10-27-[address] DE [address] [facility] Start: 10-06-2023 End: 10-06-2023 ambulatory DIHSA DILLARD Not Available Start: 09-30-[address] [facility] Start: 09-21-2023 ambulatory CARLOS [facility] Start: 09-21-2023 End: 09-21-2023 ambulatory [facility] Start: 08-11-2023 End: 08-11-2023 ambulatory DISHA DILLARD Not Available Start: 08-06-2023 End: 08-06-2023 ambulatory [facility] Start: 07-09-[address] [facility] Start: 06-30-2023 ambulatory [facility] Start: 06-30-2023 End: 06-30-2023 ambulatory [facility] Start: 06-09-2023 End: 06-09-2023 ambulatory [facility] Start: 06-02-2023 End: 06-02-2023 ambulatory [facility] Start: 06-02-2023 End: 06-02-2023 ambulatory [facility] Start: 05-19-2023 End: 05-19-2023 ambulatory [facility] Start: 04-21-2023 ambulatory [facility] Start: 04-21-2023 End: 04-21-2023 ambulatory [facility] Start: 03-26-2023 End: 03-26-2023 ambulatory Disha Dillard Facility:[facility] Start: 03-26-2023 End: 03-26-2023 ambulatory MD Boyd Herrera Work Phone: [facility] Work Phone: Start: 03-26-2023 End: 03-26-2023 Patient encounter procedure MD Boyd Herrera Work Phone: [facility] Work Phone: Start: 03-24-2023 ambulatory [facility] Start: 03-23-2023 End: 03-23-2023 ambulatory [facility] Start: 02-27-2023 End: 02-27-2023 ambulatory [facility] Start: 02-20-2023 ambulatory Huey Levi Facilit y:[facility] Start: 02-20-2023 End: 02-20-2023 ambulatory MD Boyd Herrera Work Phone: [facility] Work Phone: Start: 02-20-2023 End: 02-20-2023 Registered Recurring MD Boyd Herrera Work Phone: [facility] Work Phone: Start: 02-12-2023 End: 02-12-2023 ambulatory [facility] Start: 02-11-2023 End: 02-11-2023 ambulatory Boyd Herrera Facility:[facility] Start: 02-11-2023 Registered Recurring MD Max Herrera Work Phone: [facility] Work Phone: Start: 02-11-2023 End: 02-11-2023 ambulatory MD Boyd Herrera Work Phone: [facility] Work Phone: Start: 02-11-2023 End: 02-11-2023 Patient encounter procedure MD Boyd Herrera Work Phone: [facility] Work Phone: Start: 02-02-2023 End: 02-02-2023 ambulatory [facility] Start: 01-08-2023 ambulatory [facility] Start: 12-22-2022 End: 12-22-2022 ambulatory [facility] Start: 12-22-2022 End: 12-22-2022 ambulatory [facility] Start: 11-27-2022 End: 11-27-2022 ambulatory Disha Dillard Facility:[facility] Start: 11-27-2022 End: 11-27-2022 ambulatory MD Boyd Herrera Work Phone: [facility] Work Phone: Start: 11-27-2022 End: 11-27-2022 Patient encounter procedure MD Boyd Herrera Work Phone: [facility] Work Phone: Start: 11-20-2022 ambulatory MD Boyd cesar Work Phone: [facility] Work Phone: Start: 11-20-2022 Registered Recurring MD Max Herrera Work Phone: [facility] Work Phone: Start: 11-04-2022 End: 11-04-2022 ambulatory MD Boyd Herrera Work Phone: [facility] Work Phone: Start: 11-04-2022 End: 11-04-2022 Registered Recurring MD Boyd Herrera Work Phone: [facility] Work Phone: Start: 07-31-2022 ambulatory JENNY CHATO Facility: [facility] Start: 06-28-2022 End: 06-29-2022 ambulatory JENNY CHATO Facility:[facility] Start: 05-08-2022 ambulatory JENNY CHATO Facility: [facility] Start: 12-12-2021 ambulatory JENNY CHATO Facility: [facility] Start: 11-21-2021 End: 11-21-2021 Patient encounter procedure MD Boyd Herrera Work Phone: [facility] [place] Start: 08-12-2021 End: 08-12-2021 ambulatory JACEK BRIZUELA [...] Author Start: 03-26-2023 Aerobic Culture Aerobic Culture [facility] Start: 03-26-2023 Anaerobic Culture Anaerobic Culture [facility] Start: 03-26-2023 Microscopic observation [Identifier] in Unspecified specimen by Gram stain [facility] Start: 03-26-2023 [facility] Start: 03-26-2023 End: 03-26-2023 [facility] Start: 03-26-2023 Cerebrospinal fluid culture [facility] Start: 02-11-2023 End: 02-11-2023 [facility] Start: 11-21-2021 [facility] Work Phone: Albumin [Mass/volume ] in Cerebral spinal fluid [facility] Albumin [Mass/volume ] in Serum or Plasma [facility] Albumin [Mass/volume ] in Serum or Plasma [facility] Albumin/Globulin ratio [facility] Bacteria identified in Unspecified specimen by Aerobe culture [facility] Bacteria identified in Unspecified specimen by Anaerobe culture [facility] Cell count, cerebros yo fluid [facility] Cerebrospinal fluid examination [facility] Cerebrospinal fluid IgG ratio and IgG index [facility] Comprehensive metabo lic 1999 panel - Serum or Plasma [facility] Comprehensive metabo lic 1999 panel - Serum or Plasma [facility] Comprehensive metabo lic 1999 panel - Serum or Plasma [facility] Copper measurement [facility] CT Abdomen and Pelvi s W contrast IV [facility] CT Chest W contrast IV [facility] Electrophoresis: [id number] [facility] Electrophoresis: fceah-1-mcfcgyib [facility] Electrophoresis: beta-globulin [facility] Electrophoresis: adonay ma globulin [facility] Evaluation of cerebr ospinal fluid [facility] Fluid sample volume measurement [facility] Globulin [Mass/volum e] in Serum [facility] Glucose measurement estimated from glycated hemoglobin [facility] IgA [Mass/volume] in Serum or Plasma [facility] IgG [Mass/volume] in Cerebral spinal fluid [facility] IgG [Mass/volume] in Serum or Plasma [facility] IgG [Mass/volume] in Serum or Plasma [facility] IgG clearance/Albumi n clearance [Ratio] in Serum and CSF [facility] IgG synthesis rate [Mass/time] in Serum and CSF by calculation [facility] IgM [Mass/volume] in Serum or Plasma [facility] Insulin [Units/volum e] in Serum or Plasma [facility] Work Phone: [place] light chains.f ree [Mass/volume] in Serum [facility] [place] light chains.free/Lambda light chains.free [Mass Ratio] in Serum [facility] Lambda light chains. free [Mass/volume] in Serum or Plasma [facility] Patient Education [facility] Lumb ar Puncture Discharge Instructions [facility] Work Phone: Protein [Mass/volume ] in Serum or Plasma [facility] Protein fractions.oligoclonal bands.intrathecal [Presence] in Serum and CSF [facility] Rheumatoid factor [Units/volume] in Serum or Plasma [facility] Work Phone: Serum immunofixation [facility] Thyrotropin [Units/v olume] in Serum or Plasma [facility] Work Phone: Thyroxine (T4) free index in Serum or Plasma by calculation [facility] Work Phone: Thyroxine measurement [facility] Work Phone: Triiodothyronine (T3 ) [Mass/volume] in Serum or Plasma [facility] Work Phone: Triiodothyronine res in uptake (T3RU) in Serum or Plasma [facility] Work Phone: [facility] Payers Date Payer Category Payer Unknown [id number] [id number] 1980 Unknown [id number]. 593 1981 Unknown [id number] [id number]. 593 1981 Unknown [id number] .[id number]. 593 1981 Unknown [id number] 2.16.840.1.832601.3.579.2. 593 1981 Unknown [id number] .[id number]. 1259 1981 Unknown [id number] 2.16.840.1.583250.3.579.2. 1259 1981 Unknown [id number] 2.16.840.1.728413.3.579.2. 1259 1959 Self-pay [id number] 1958 Unknown [id number] Private Health Insurance [facility] [id number] Private Health Insurance [facility] [id number] Unknown Insurance No Card [id number] Unknown [id number] [id number]. 531 Unknown [id number] 2.16.840.1.422929.3.579.2. 531 Unknown [id number] 2.16.840.1.317228.3.579.2. 531 Unknown [id number] Social History Date Type Detail Facility Tobacco smoking stat us LAIS Unknown if ever smoked [facility] Work Phone: Start: 1980 Sex Assigned At Female F [facility] Start: 11-04-2022 End: 02-20-2023 Tobacco smoking status NHIS Never smoked tobacco (finding) [facility] Clinical Notes 07-28-2020 to 12-18-2023 Note Date & Type Note Facility 12-18-2023 Note [facility] Note Reason for cardiology consult: Dizziness Chief Complaint: Dizziness HPI: Delicia Serrano is a 43 y.o. female without prior cardiac history. She has a history of hyperlipidemia, prediabetes, obesity, sleep apnea on CPAP since 2010, vestibular dysfunction/vertigo, chronic fatigue syndrome, rheumatoid arthritis, migraine, and anxiety/depression Patient states that she had vertigo/vestibular dysfunction for many years which has been stable. However about 1 and half months ago she started having initially dizziness episodes when she is in the shower that she had to sit down and with standing and walking but progressively it became worse that she started to pass out while she is walking. It does not occur every day but a few times a week. She feels flutters in her heart with that. She has been drinking water and liquid IV a lot but that is not helping. She reports that is totally different from her vertigo which is a spinning feeling and usually when she moves her head. She told me that in in 2020 she had COVID and while she was in the hospital her heart rate used to shoot very high but she did not feel dizzy. At that time she was heavier, lately she lost about 60 pounds and the passing out episodes correlate with the timing of losing weight. The patient also reports that she has not been doing well for more than 1 year. It started with having severe headache last August different from her migraine headache which was stable prior to that and she was found to have cerebral pseudotumor on the MRI. Also during last year she was diagnosed with rheumatoid arthritis and she was started on methotrexate. She has history of sleep apnea and she wears CPAP every night since 2020. She had 5-day Holter monitor in October 12, 2023 during which she did not have any syncopal episodes. It reported to show second-degree AV block Mobitz 1 therefore she was referred to cardiology. Reviewing the monitor Patient states that she does not drink any caffeine. She drinks about 3/4 gallon of fluid including water and liquid IV. She denies any alcohol or illicit drugs or smoking. Cardiology ROS: GENERAL: Denies fever, chills, night sweats, weight loss. HEENT: Denies changes in vision, photophobia, changes in hearing, epistaxis, oral bleeding. CARDIOVASCULAR: Denies chest pain, exertional dyspnea, orthopnea/PND, lower extremity edema, she admits palpitations, lightheadedness/dizziness/syncope episodes as described above. RESPIRATORY: Denies SOB, coughing, wheezing GI: Denies abdominal pain, nausea/vomiting, heartburn, melena/hematochezia. RENAL: Denies dysuria, hematuria, flank pain. MSK: Denies muscle weakness/pain, arthralgias/joint pain. NEUROLOGIC: Denies LOC, weakness, numbness, headaches. SKIN: Denies abnormal rashes or bleeding. PSYCH: Denies significant anxiety, depression, sleep disturbances. Past Medical History She has a past medical history of Back pain, Chronic pain disorder, Cluster headache, Extremity pain, Fibromyalgia, primary, Headache, Headache, tension-type, Joint pain, Low back pain, Lyme disease, Migraine, Peripheral neuropathy, and Rheumatoid arthritis ([facility]). Surgical History She has a past surgical history that includes section, classic; Breast surgery (Bilateral); section, classic; Bladder repair; Other surgical history (01/12/2023); Other surgical history (Bilateral, 06/09/2023); and Other surgical history (Left, 08/06/2023). Social History She reports that she has [...] Negro Hyperlipidemia Father Negro Arthritis Maternal Grandfather Levelland Cancer Maternal Grandfather Dominick Diabetes Maternal Grandfather Dominick Stroke Maternal Grandfather Levelland Arthritis Maternal Grandmother Raydene Cancer Maternal Grandmother [...] (sulfonamide antibiotics), Metformin hcl, and Pioglitazone Medications Current Outpatient Medications: Ajovy Syringe 225 mg/1.5 mL prefilled syringe, INJECT 1.5ML VIA SUBCUTANEOUS ROUTE (more content not included)... [facility] 12-15-2023 Note [place] [address] Referral Source: No ref. provider found 43 year old female here for follow up after Left SIJ injection on 10/27/23. She reports getting 75% relief for 4-6 weeks. Since then her pain has gradually started coming back. Today she rates her pain 6/10 in her low back which radiates up into between her shoulder blades. She reports this pain happens with any activity throughout the day. She feels the pain is returning in the same place that was prior to the VAMSI she had about a year ago. The pain and numbness radiates into bilateral arms and is making completing tasks at home difficult. She has been taking Zanaflex, Cymbalta, and naltrexone with little benefit. She reports the pharmacy made a mistake and she has been taking 60mg Cymbalta at night. She would like to try taking 30 mg Cymbalta BID to see if that helps. 12/15/23 CC: Chief Complaint Patient presents with Follow-up Lt SIJ Pain Assessment Pain Assessment: 0-10 Pain Score: 6 Pain Type: Chronic pain Pain Location: Back Pain Orientation: Left Pain Descriptors: Cramping, Shooting, Stabbing, Numbness, Tightness Pain Frequency: Constant/continuous Pain Onset: Ongoing Clinical Progression: Gradually worsening Response to Interventions: Lt SIJ 10/27/23 SUBJECTIVE: Delicia E Serrano is a 43 y.o. female fibromyalgia [...] state, incidental Lumbar radiculopathy Seronegative arthritis Other senior living (current) drug therapy Spondylosis without myelopathy or radiculopathy, lumbosacral region Lumbar spondylosis Abnormal SPEP Brachial neuritis or radiculitis Carpal tunnel syndrome Chronic migraine without aura, with intractable migraine, so stated, with status migrainosus Degenerative disc disease, cervical Disturbance of skin sensation Insomnia Leg pain Malaise and fatigue Migraine Obstructive sleep apnea Paresthesia Shortness of breath on exertion Sleep disturbances Tension headache Vertigo Vestibular dysfunction Atrioventricular block, second degree Past Surgical History: Procedure Laterality Date BLADDER REPAIR BREAST SURGERY Bilateral SECTION, CLASSIC SECTION, CLASSIC revision OTHER SURGICAL HISTORY 01/12/2023 C7-T1 INTERLAMINAR EPIDURAL STEROID INJECTION OTHER SURGICAL HISTORY Bilateral 06/09/2023 ИВАН RFA L4/5 L5/S1 - 85%improvement OTHER SURGICAL HISTORY Left 08/06/2023 SIJ injection under fluoroscopy - 0 % pain relief Allergies Allergen Reactions Sulfa (Sulfonamide Antibiotics) Rash [...] Daughter Kathy Cancer Father's Sister Leigh Cancer Father (more content not included)... [facility] 09-30-2023 Note [place] [address] Referral Source: No ref. provider found 09/30/23 CC: Chief Complaint Patient presents with Follow-up LEFT SIJ INJECTION - 0% pain relief Pain Assessment Pain Assessment: 0-10 Pain Score: 6 Pain Type: Chronic pain Pain Location: Back Pain Orientation: Lower, Left, Right Pain Radiating Towards: hips Pain Descriptors: Radiating, Dull, Aching Pain Frequency: Constant/continuous Pain Onset: Ongoing Clinical Progression: Gradually worsening Aggravating Factors: Walking, Bending, Kneeling, Exercise, Squatting, Stairs, Standing, Straightening, Stretching Result of Injury: No Work-Related Injury: No Patient's Stated Pain Goal: 1 Pain Interventions: Rest, Repositioned, Medication (See MAR) Response to Interventions: LEFT SIJ INJECTION - 0% pain relief, Zanaflex at night effective 43 year old female here for follow up after left SIJ injection where she did not get any relief. She states her pain is a 6/10 and in her low back that is aching and radiates to her hip. She states her pain is worse with walking, standing, bending and stretching. She states she is depressed due to not being able to do much because of her pain. She states her zanaflex does help her get some rest. 43 year old female here for follow [...] 6 Pain Type: Chronic pain Pain Location: Back Pain Orientation: Lower, Left, Right Pain Radiating Towards: hips Pain Descriptors: Radiating, Dull, Aching Pain Frequency: Constant/continuous Pain Onset: Ongoing Clinical Progression: Gradually worsening Aggravating Factors: Walking, Bending, Kneeling, Exercise, Squatting, Stairs, Standing, Straightening, Stretching Result of Injury: No Work-Related Injury: No Patient's Stated Pain Goal: 1 Pain Interventions: Rest, Repositioned, Medication (See MAR) Response to Interventions: LEFT SIJ INJECTION - 0% pain relief, Zanaflex at night effective Past Medical History: Diagnosis Date Back pain [...] state, incidental Lumbar radiculopathy Seronegative arthritis 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 manager terminal (current) drug therapy Spondylosis without myelopathy or radiculopathy, lumbosacral region Lumbar spondylosis Abnormal SPEP Brachial neuritis or radiculitis Carpal tunnel syndrome Chronic migraine without aura, with intractable migraine, so stated, with status migrainosus Degenerative disc disease, cervical Disturbance of skin sensation Insomnia Leg pain Malaise and fatigue Migraine Obstructive sleep apnea Paresthesia Shortness of breath on exertion Sleep disturbances Tension headache Vertigo Vestibular dysfunction Past Surgical History: Procedure Laterality Date BLADDER REPAIR BREAST SURGERY Bilateral SECTION, CLASSIC SECTION, CLASSIC revision OTHER SURGICAL HISTORY 01/12/2023 C7-T1 INTERLAMINAR EPIDURAL STEROID INJECTION OTHER SURGICAL HISTORY Bilateral 06/09/2023 ИВАН RFA L4/5 L5/S1 - 85%improvement OTHER SURGICAL HISTORY Left 08/06/2023 SIJ injection under fluoroscopy - 0 % pain relief Allergies Allergen Reactions Sulfa (Sulfonamide Antibiotics) Rash and Shortness of breath Other reaction(s): Un (more content not included)... [facility] 09-30-2023 Note [place] [address] Referral Source: No ref. provider found 09/30/23 CC: Chief Complaint Patient presents with Follow-up LEFT SIJ INJECTION - 0% pain relief Pain Assessment Pain Assessment: 0-10 Pain Score: 6 Pain Type: Chronic pain Pain Location: Back Pain Orientation: Lower, Left, Right Pain Radiating Towards: hips Pain Descriptors: Radiating, Dull, Aching Pain Frequency: Constant/continuous Pain Onset: Ongoing Clinical Progression: Gradually worsening Aggravating Factors: Walking, Bending, Kneeling, Exercise, Squatting, Stairs, Standing, Straightening, Stretching Result of Injury: No Work-Related Injury: No Patient's Stated Pain Goal: 1 Pain Interventions: Rest, Repositioned, Medication (See MAR) Response to Interventions: LEFT SIJ INJECTION - 0% pain relief, Zanaflex at night effective 43 year old female here for follow up after left SIJ injection where she did not get any relief. She states her pain is a 6/10 and in her low back that is aching and radiates to her hip. She states her pain is worse with walking, standing, bending and stretching. She states she is depressed due to not being able to do much because of her pain. She states her zanaflex does help her get some rest. 43 year old female here for follow [...] 6 Pain Type: Chronic pain Pain Location: Back Pain Orientation: Lower, Left, Right Pain Radiating Towards: hips Pain Descriptors: Radiating, Dull, Aching Pain Frequency: Constant/continuous Pain Onset: Ongoing Clinical Progression: Gradually worsening Aggravating Factors: Walking, Bending, Kneeling, Exercise, Squatting, Stairs, Standing, Straightening, Stretching Result of Injury: No Work-Related Injury: No Patient's Stated Pain Goal: 1 Pain Interventions: Rest, Repositioned, Medication (See MAR) Response to Interventions: LEFT SIJ INJECTION - 0% pain relief, Zanaflex at night effective Past Medical History: Diagnosis Date Back pain [...] state, incidental Lumbar radiculopathy Seronegative arthritis Other senior living (current) drug therapy Spondylosis without myelopathy or radiculopathy, lumbosacral region Lumbar spondylosis Abnormal SPEP Brachial neuritis or radiculitis Carpal tunnel syndrome Chronic migraine without aura, with intractable migraine, so stated, with status migrainosus Degenerative disc disease, cervical Disturbance of skin sensation Insomnia Leg pain Malaise and fatigue Migraine Obstructive sleep apnea Paresthesia Shortness of breath on exertion Sleep disturbances Tension headache Vertigo Vestibular dysfunction Past Surgical History: Procedure Laterality Date BLADDER REPAIR BREAST SURGERY Bilateral SECTION, CLASSIC SECTION, CLASSIC revision OTHER SURGICAL HISTORY 01/12/2023 C7-T1 INTERLAMINAR EPIDURAL STEROID INJECTION OTHER SURGICAL HISTORY Bilateral 06/09/2023 ИВАН RFA L4/5 L5/S1 - 85%improvement OTHER SURGICAL HISTORY Left 08/06/2023 SIJ injection under fluoroscopy - 0 % pain relief Allergies Allergen Reactions Sulfa (Sulfonamide Antibiotics) Rash and Shortness of breath Other reaction(s): Un (more content not included)... 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 She reports pain and stiffness in all [...] limited to inc (more content not included)... [facility] 07-09-2023 Note [place] [address] Referral Source: No ref. 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 [facility] 07-09-2023 Note [place] [address] Referral Source: No ref. provider found 07/09/23 [...] state, incidental Lumbar radiculopathy Seronegative arthritis Other senior living (current) drug therapy Spondylosis without myelopathy or [...] Negro Hyperlipidemia Father Negro Arthritis Maternal Grandfather Levelland Cancer Maternal Grandfather Dominick Diabetes Maternal Grandfather Dominick Stroke Maternal Grandfather Levelland Arthritis Maternal Grandmother Raydene Cancer Maternal Grandmother [...] deformities, skin discol (more content not included)... [facility] 06-30-2023 Note ------ Attestation signed by Christianne [...] weekly -- obta (more content not included)... [facility] 06-02-2023 Note Subjective Patient ID: Delicia Serrano [...] Scheduling Instructions: The phone number to contact [facility] Radiology is Once you have been placed [...] Negative mg/dL Bilirubin, Urine Negative Negative Specific [place], Urine 1.027 (H) 1.015 - 1.020 Ketones, [...] 11 7 - (more content not included)... [facility] 06-02-2023 Note Subjective Patient ID: Delicia Serrano [...] Scheduling Instructions: The phone number to contact [facility] Radiology is Once you have been placed into the phone tree, it will prompt with the following options. 1 - CT scheduling 2 - MRI scheduling 3 - Ultrasound scheduling 4 - X-ray, Nuclear Medicine, Mammograms scheduling 5 - Reports/Image requests or general questions Order Specific Question: Is the patient ? An (more content not included)... [facility] 04-21-2023 Note Interventional Pain Management Nursing Note / Nurse Post-Call Note S/p ИВАН MBB L4/5 L5/S1 #1 Post call VM left to call department with results of procedure. [facility] 03-24-2023 Note Pain Medicine Medical [address] [address] Date: 03/24/23 Referral Source: No ref. 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 [facility] 03-23-2023 Note Subjective Patient ID: Delicia Serrano [...] and all orders for this visit: Other senior living (current) drug therapy - Comprehensive metabolic panel; Future - CBC and differential; Future Seronegative arthritis - folic acid (Folvite) 1 mg tablet; Take 1 tablet (1 mg) by mouth in the morning and at bedtime. - Comprehensive metabolic panel; Future - CBC and differential; Future Diagnosis Plan 1. 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 [facility] 03-23-2023 Note PAIN INCREASES WHE G OING FROM SITTING TO STANDING PAIN INCREASES TO 4/10 [facility] 02-02-2023 Note Subjective Patient ID: Delicia Serrano [...] - Urinalysis; Future - Urinalysis microscopic Other senior living (current) drug therapy Fibromyalgia Diagnosis Plan 1. Seronegative arthritis methotrexate 2.5 mg tablet folic acid (Folvite) 1 mg tablet predniSONE (Deltasone) 5 mg tablet 2. Lumbar radiculopathy MR lumbar spine w and wo contrast 3. Dysuria Urinalysis Urinalysis Urinalysis microscopic 4. Other senior living (current) drug therapy 5. Fibromyalgia Orders Placed This Encounter Procedures MR lumbar spine w and wo contrast Standing Status: Future Standing Expiration Date: 02/03/2024 Scheduling Instructions: The phone number to contact [facility] Radiology is Once you have been placed [...] Negative mg/dL Bilirubin, Urine Negative Negative Specific [place], Urine 1.027 (H) 1.015 - 1.020 Ketones, Urine Trace (A) Negative mg/dL (more content not included)... [facility] 01-08-2023 Note ------ Attestation signed by Carlos [...] in Pain Clinic ------ Pain Medicine Medical [place] [id number] Date:01/08/23 Referral Source: Christianne Da Silva MD [...] Cancer Maternal Grandfather Dominick Diabetes Maternal Grandfather Levelland Stroke Maternal Grandfather Levelland Arthritis Maternal Grandmother Raydene Cancer Maternal Grandmother [...] alert. Lungs: Br (more content not included)... [facility] 12-22-2022 Note Subjective Patient ID: Delicia Serrano [...] of brain report, plan for LP per neuroloyg, no need for CSF testing for rheumatological [...] Scheduling Instructions: The phone number to contact [facility] Radiology is Once you have been placed [...] up in about 4 weeks (around 01/19/2023). [facility] 11-20-2022 Progress note Note Date/Time November 20, 2022 11:09[facility] at [address] [address] Hem/Onc Follow Up Note - OP Signed Patient: Delicia Serrano MR#: [id number] 2061 : 1980 Acct:[id number] Age/Sex: 42 / F Type: REG RCR [...] kidney cancer. She is referred by Dr. Sism for an abnormal SPEP and paresthesia. Most [...] dizziness or focal weakness or sensory changes. FOR[facility]LY [facility], [facility] - Medical History Medical History: Medical History [...] mg/1.5 mL subcutaneous auto-injector (Ajovy) 225 mg [id number] 11/03/22 [History Confirmed 11/20/22] furosemide 20 mg [...] 94. Total bilirubin 0.3. Her LDH was [id number]. Serum protein electrophoresis revealed no M protein [...] IgE G was 676 normal IgM was [id number] and IgA was normal at 92. Rheumatoid [...] for coordination of care (as documented) and [id number] counseling of patient and/or family. Dictated By: Mariana Cortes MD DD/ [id number] Signed By: <Electronically signed by Mariana Cortes MD> 11/20/22 1113 [facility] Work Phone: 1(278) 958-459408-23-2023 Consult note Author Nicki Duran [facility] November 05, 2022 4:26pm Note Date/Time November 04, 2022 3: 55pm [facility] at [place] [id number] Hem/Onc Consult Note - OP Signed Patient: Delicia Serrano MR#: [id number] : 1980 Acct:[id number] Age/Sex: 42 / F Type: REG RCR [...] for which she takes Lasix every day. [facility]LY [facility] - Medical History Medical History: Medical History [...] mg/1.5 mL subcutaneous auto-injector (Ajovy) 225 mg [id number] 11/03/22 [History Confirmed 11/03/22] furosemide 20 mg [...] for coordination of care (as documented) and [id number] counseling of patient and/or family. Dictated By: Nicki Duran APRN DD/ 1550 Signed By: <Electronically signed by TATUM Duran> 11/05/22 0105 [facility] Work Phone: [phone]) 986-104905-15-2021 NoteInfectious Disease COVID-19 Frequently Asked Questions COVID-19 (coronavirus disease) is an infection that is caused by a large family of viruses. Some viruses cause illness in people and others cause illness in animals like camels, cats, and bats. In some cases, the viruses that cause illness in animals can spread to humans. Where did the coronavirus come from? In February 2019, [place] told the World Health Organization (WHO) of several cases of lung disease (human respiratory illness). These cases were linked to an open seafood and livestock market in the city of [facility]. The link to the seafood and livestock [...] and virus naming World Health Organization (WHO): www.who.int/emergencies/diseases/jymjx-tgxcbcmrxzp-3763/technical-g uidance/jnplcg-kya-ejnvnyuhwew-disease-(covid-2019)-ibm-lem-vswwh-shmt-gxbnbg-pw Who is at risk for complications from [...] testing. Samples may in (more content not included)...[facility] November 05, 2022 4:26pm Note Date/Time November 04, 2022 3: 55pm [facility] [place] [address] Hem/Onc Consult Note - OP Signed Patient: Delicia Serrano MR#: [id number] : 1980 Acct:[id number] Age/Sex: 42 / F Type: REG RCR [...] for which she takes Lasix every day. [facility]LY [facility] - Medical History Medical History: Medical History [...] mg/1.5 mL subcutaneous auto-injector (Ajovy) 225 mg [id number] 11/03/22 [History Confirmed 11/03/22] furosemide 20 mg [...] for coordination of care (as documented) and [id number] counseling of patient and/or family. Dictated By: Nicki Duran APRN DD/ 1555 Signed By: <Electronically signed by TATUM Duran> 11/05/22 1626 [facility] Work Phone: Evaluation noteNo assessment information available [facility] Work Phone: Evaluation note* Diagnosis Onset Date Resolution Status Abnormal SPEP acute [facility] Work Phone: Progress note Author Mariana Cortes [facility] November 20, 2022 11:13am Note Date/Time November 20, 2022 11:09am [facility] at [address] [address] Hem/Onc Follow Up Note - OP Signed Patient: Delicia Serrano MR#: [id number] 2062 : 1980 Acct:[id number] Age/Sex: 42 / F Type: REG RCR [...] dizziness or focal weakness or sensory changes. FOR[facility]LY [facility], [facility] - Medical History Medical History: Medical History [...] History (Last Updated 11/03/22 @ 13:35 by rBandy Francois) Mother Hypercholesteremia Hypertension Father Hypercholesteremia Hypertension [...] mg/1.5 mL subcutaneous auto-injector (Ajovy) 225 mg [id number] 11/03/22 [History Confirmed 11/20/22] furosemide 20 mg [...] 94. Total bilirubin 0.3. Her LDH was [id number]. Serum protein electrophoresis revealed no M protein [...] IgE G was 676 normal IgM was [id number] and IgA was normal at 92. Rheumatoid [...] for coordination of care (as documented) and [id number] counseling of patient and/or family. Dictated By: Mariana Cortes MD DD/ [id number] Signed By: <Electronically signed by Mariana Cortes MD> 11/20/22 [address] [facility] Work Phone: Summary Purpose Family History No [...] section and content) DATE CREATED AUTHOR 08/11/2020 [facility] DATE CREATED AUTHOR AUTHOR'S ORGANIZ ATION 07/14/2021 [facility] DATE CREATED AUTHOR AUTHOR'S ORGANIZ ATION 07/22/2022 [facility] DATE CREATED AUTHOR AUTHOR'S ORGANIZ ATION 04/02/2023 [facility] DATE CREATED AUTHOR AUTHOR'S ORGANIZ ATION 12/04/2023 [facility] DATE CREATED AUTHOR AUTHOR'S ORGANIZ ATION 12/22/[address] [facility] Care Teams (unrecognized sec tion and [...] Herrera MD Primary Care Provider Active Jenny Swartz NP-C Attending Provider Active Goals (unrecognized section [...] BE BASED ON THE PRIMARY CLINICAL RECORDS. [employer] (acquired by [employer] in 2014[employer] provides no warranty or guarantee of the accuracy or completeness of information in this document.
== END 2023-12-29 14:00 | disposition home or self-care (01) ==
LOC: CARD 13:59
PROVIDERS: PCP Nurse Practitioner Family; Visit Provider Internal Medicine Cardiovascular Disease
DX: R55 Syncope and collapse (principal); R94.31 Abnormal electrocardiogram [ECG] [EKG]
CPT/HCPCS: 93306

== ENCOUNTER 2024-03-18 20:22 | Emergency (ER) | payer OTHER, SELFPAY ==
[2024-03-18] VITALS (7 sets, daily range): BP systolic 111–123; BP diastolic 78–90; PULSE 80–95; TEMP 36.4; O2SAT 93–97; BMI 32.9
--- OUTSIDE RECORDS SUMMARY | 2024-03-18 20:28 | XMS_ITS | CCD ---
Author Organization [facility] CliniSyfl Care Team Providers Care General Contractor Name Role Phone MD Boyd Herrera Primary Care Provider [place]TH [place] Attending Provider [phone] CHATO, JENNY Admitting Unavailable CHATO, JENNY Attending Unavailable CHATO, JENNY Consulting Unavailable HOY ., DR CACERES Primary Care Unavailable CHATO, JENNY Admitting Unavailable CHATO, JENNY Attending Unavailable HOY ., DR CACERES Primary Care Unavailable CHATA ., JACEK Consulting Unavailable CHATA ., JACEK Admitting Unavailable HEMEYER ., DR CASTLE Primary Care Unavailable CHATA ., JACEK Attending Unavailable ANA LAURA PARKER Consulting Unavailable CHATO, JENNY Attending Unavailable CHATO, JENNY Admitting Unavailable HEMEYER ., DR CASTLE Primary Care Unavailable CHATO, JENNY Attending Unavailable CHATO, JENNY Admitting Unavailable HEMEYER ., DR CASTLE Primary Care Unavailable MD Boyd Herrera Primary Care Provider TATUM Duran Attending Provider MD Huey Sims Referring Provider MD Boyd Herrera Primary Care Provider TATUM Duran Attending Provider MD Huey Sims Referring Provider [phone] BLAYNE Dillard Attending Provider MD Boyd Herrera Primary Care Provider BLAYNE Dillard Attending Provider NORTH Reis Attending Provider TATUM Duran Attending Provider MD Huey Sims Referring Provider [phone] TATUM Duran Attending Provider MD Huey Sims Referring Provider MD Boyd Herrera Primary Care Provider [phone] BLAYNE Dillard Attending Provider Boyd Herrera MD Primary Care Provider [phone] Levi PIMENTEL, Huey Unavailable Chato PIMENTEL, Jenny Unavailable DISHA DILLARD Attending Unavailable LOWE, DISHA Attending Unavailable LOWE, DISHA Attending Unavailable LOWE, DISHA Attending Unavailable PRINTY, TOBIN Claros Attending Unavailable LOWE, DISHA Referring Unavailable TOBIN BALDWIN Referring Unavailable LOWMoshe, DISHA Attending Unavailable Boyd Herrera Primary Care Unavailable Disha Dillard Admitting Unavailable Disha Dillard Attending Unavailable Nicki Duran Admitting Unavail able Roger, Nicki Law Attending Unavail able Huey Sims Referring Unavailable Boyd Herrera Primary Care Unavailable BALDEV, ESTRELLITA Attending Unavailable PERKINS, CARLOS Referring Unavailable PERKINS, CARLOS Attending Unavailable PERKINS, CARLOS Referring Unavailable ABUGHARBYEH, AYA Referring Unavailable PERKINS, CARLOS Attending Unavailable PERKINS, CARLOS Referring Unavailable ALLISON, SAMAR Referring Unavailable PERKINS, CARLOS Referring Unavailable PERKINS, CARLOS Attending Unavailable PERKINS, CARLOS Referring Unavailable ABUGHARBYEH, AYA Attending Unavailable WHITE YVETTE Attending Unavailable ABUGHARBYEH, AYA Attending Unavailable WHITE, YVETTE Attending Unavailable PERKINS, CARLOS Attending Unavailable ABUGHARBYEH, AYA Attending Unavailable PERKINS, CARLOS Attending Unavailable PERKINS, CARLOS Referring Unavailable PERKINS, CARLOS Attending Unavailable PERKINS, CARLOS Referring Unavailable PERKINS, CARLOS Attending Unavailable PERKINS, CARLOS Referring Unavailable PERKINS, CARLOS Referring Unavailable ALLISON, SAMAR Attending Unavailable ABUGHARBYEH, AYA Attending Unavailable ALLISON, SAMAR Attending Unavailable ABUGHARBYEH, AYA Attending Unavailable BALDEV, ESTRELLITA Referring Unavailable BALDEV, ESTRELLITA Attending Unavailable Allergies Allergy Classification Reported Allergen(s) Allergy Type Date of Onset Reaction(s) Facility (8 sources) metFORMIN Drug Allergy 11-05-19 Unknown Reaction, Gastrointestinal Upset [facility] (2 sources) pioglitazone Drug Allergy [facility] (2 sources) Sulfonamides (Antibiotic) Drug allergy (disorder) 12-19-19 14 [facility] (8 sources) pioglitazone; Translations: [pioglitazone] Drug Allergy 11-05-19 Gastrointestinal Upset [facility] (8 sources) Sulfonamides (Antibiotic); Translations: [Sulfa (Sulfonamide Antibiotics)] Propensity to adverse reactions 08-27-19 Unknown Reaction, Difficulty Breathing [facility] (16 sources) Acarbose Drug Allergy 08-27-[address] [facility] (17 sources) metFORMIN; Translations: [METFORMIN HCL] Drug Allergy 08-27-19 [facility] (16 sources) Sulfonamides (Antibiotic) Drug Allergy 08-27-19 Rash, Shortness of breath, Unknown [facility] (1 source) metFORMIN Drug Allergy 02-18-20 [facility] Medications Current Medications Medication Drug Class(es) Dates Sig (Normalized) Sig (Original) acetaminophen 250 mg / aspirin 250 mg / caffeine 65 mg oral tablet (16 sources) Platelet Aggregation Inhibitor, Nonsteroidal Anti-inflammatory Drug, Central Nervous System Stimulant, Methylxanthine aspirin-acetamino phen-caffeine (Excedrin Migraine) 250-250-65 MG tablet 1 (one) time each day at the same time. Active busPIRone hydrochloride 15 mg oral tablet (6 sources) End: 01-04-2024 take 1 tablet by mouth in the morning busPIRone (Buspar) 15 MG tablet Take 15 mg by mouth in the morning and 15 mg before bedtime. 01/04/2024 Discontinued Cetirizine / Pseudoephedrine (20 sources) alpha-Adrenergic Agonist, Histamine-1 Receptor Antagonist Start: 11-03-2022 take 1 tablet by mouth once daily, then take 1 tablet by mouth every twelve hours Cetirizine-Pseudo ephedrine (Zyrtec-D) 5-120 mg Tablet Extended Release 12 [...] TAB PO Q12H November 03, 2022 12:00am Start: 08-18-2022 take 5-120 mg by bentley th every twelve hours as needed cetirizine-pseudoephedrine (ZyrTEC-D) 5- 120 MG 12 hr tablet Take 1 tablet by mouth 2 (two) times a day as needed. 08/18/2022 Active DULoxetine 20 mg delayed release oral capsule (20 sources) Serotonin and Norepinephrine Reuptake Inhibitor Start: 07-14-2023 take 1 capsule by mouth once daily DULoxetine (Cymbalta) [address] capsule Indications: Migraine without status migrainosus, not intractable, unspecified migraine type (CMS/HCC) TAKE ONE CAPSULE BY MOUTH DAILY 30 capsule 11 07/14/2023 Active Start: 11-03-2022 take 20 mg by mouth at bedtime Duloxetine Active 20 MG PO Bedtime November 02, 2022 11:00pm ferrous sulfate 325 mg oral tablet (20 sources) Start: 11-20-2022 End: 02-20-2023 take 325 mg by mouth once daily Ferrous Sulfate Active 325 MG PO Daily February 20, 2023 10:59am fludrocortisone acetate 0.1 mg oral tablet (3 sources) Start: 02-19-2024 End: 02-18-2025 take 2 tablets by mouth in the morning fludrocortisone (Florinef) 0.1 MG tablet Take 0.2 mg by mouth in the morning. 02/19/2024 02/18/2025 Active folic acid 1 mg oral tablet (17 sources) Start: 03-26-2023 take 5 mg by mouth twice daily Folic Acid Active 5 MG PO Twice daily March 26, 2023 12:00am take 1 tablet by mouth in the mo rning folic acid (Folvite) 1 MG tablet Take 1 mg by mouth in the morning and in the evening Active 1.5 ml fremanezumab-vfrm 150 mg/ml prefilled syringe (15 sources) Start: 02-10-2024 inject 1.5 mL by subcutaneous injection every month Ajovy 225 MG/1.5ML prefilled syringe INJECT 1.5ML BY SUBCUTANEOUS ROUTE MONTHLY 02/10/2024 Active Start: 10-06-2023 End: 01-04-2024 inject 1.5 mL by subcutaneous injection every 30 days fremanezumab (Ajovy) 225 MG/1.5ML prefilled syringe Indications: Migraine without status migrainosus, not intractable, unspecified migraine type (CMS/HCC) Inject 1.5 mL (225 mg) under the skin every 30 (thirty) days 1.5 mL 2 10/06/2023 01/04/2024 Active Start: 11-03-2022 Fremanezumab-V frm (Ajovy Autoinjector) 225 mg/1.5 mL Auto-Injector Active 225 MG SUBCUT Q30D November 02, 2022 11:00pm furosemide 20 mg oral tablet (9 sources) Loop Diuretic Start: 11-03-2022 take 1 tablet by mouth once daily Furosemide (Lasix) 20 mg Tablet Active 20 MG PO Daily November 02, 2022 11:00pm Start: 08-18-2022 End: 12-02-2023 take 1 tablet by mouth twice daily as needed furosemide (Lasix) 20 MG tablet Take 20 mg by mouth 2 (two) times a day as needed. 08/18/2022 12/02/2023 Discontinued (Therapy completed) meloxicam 7.5 mg oral tablet (6 sources) Nonsteroidal Anti-inflammatory Drug Start: 11-04-2022 take 2 tablets by mouth at bedtime Meloxicam (Mobic) 7.5 mg Tablet Active 15 MG PO Bedtime November 03, 2022 11:00pm Start: 11-04-2022 take 1 tablet by bentley th once daily Meloxicam (Mobic) 7.5 mg Tablet Active 7.5 MG PO Daily November 03, 2022 11:00pm methotrexate 2.5 mg oral tablet (18 sources) Folate Analog Metabolic Inhibitor Start: 02-20-2023 take 1 tablet by mouth every week Methotrexate Sodium (Methotrexate (Anti-Rheumatic)) 2.5 mg Tablet Active 2.5 MG PO every week February 20, 2023 12:00am Start: 02-20-2023 Methotrexate S odium (Methotrexate (Anti-Rheumatic)) 2.5 mg Tablet Active 12.5 MG PO every week February 20, 2023 12:00am On thursday night Multiple Vitamin (Multivitamin) tablet (16 sources) Start: 08-18-2022 take 1 tablet by mouth in the morning Multiple Vitamin (Multivitamin) tablet Take 1 tablet by mouth in the morning. 08/18/2022 Active Multivitamin (Multiple Vitamin) Tablet (6 sources) Start: 11-04-2022 take 1 tablet by mouth once daily Multivitamin (Multiple Vitamin) Tablet Active 1 TAB PO Daily November 03, 2022 11:00pm Start: 11-04-2022 take 1 tablet by bentley th once daily Multivitamin (Multiple Vitamin) Tablet Active 1 TAB PO Daily November 04, 2022 12:00am Naltrexone (16 sources) Opioid Antagonist take 1.5 mg by mouth once daily NALTREXONE HCL PO Take 1.5 mg by mouth Daily Active ondansetron 4 mg oral tablet (6 sources) Serotonin-3 Receptor Antagonist Start: take 1 tablet by mouth once daily Ondansetron Hcl (Zofran) 4 mg Tablet Active 4 MG PO Daily November 02, 2022 11:00pm phentermine hydrochloride 37.5 mg oral tablet (12 sources) Sympathomimetic Amine Anorectic Start: End: take 1 tablet by mouth once daily before breakfast phentermine (Adipex-P) 37.5 MG tablet TAKE ONE TABLET BY MOUTH DAILY BEFORE BREAKFAST 08/12/2022 01/04/2024 Discontinued (Therapy completed) potassium chloride 10 meq extended release oral tablet (7 sources) Start: End: take 1 tablet by mouth in the morning potassium chloride CR (Klor-Con) 10 MEQ ER tablet Take 10 mEq by mouth in the morning and 10 mEq before bedtime. 08/18/2022 01/04/2024 Discontinued (Therapy completed) predniSONE 5 mg oral tablet (18 sources) Start: Prednisone Active 5 MG PO As Directed February 20, 2023 12:00am see taper instructions QUEtiapine 25 mg oral tablet (20 sources) Atypical Antipsychotic Start: take 1 tablet by mouth once daily at bedtime Quetiapine (Seroquel) 25 mg Tablet Active 25 MG PO Daily at bedtime November 02, 2022 11:00pm Start: 08-18-2022 take 1 tablet by bentley th at bedtime QUEtiapine (SEROquel) 50 MG tablet Take 50 mg by mouth at bedtime. 08/18/2022 Active rimegepant 75 mg disintegrating oral tablet (8 sources) Start: 02-15-2024 take 1 tablet by mouth every twenty-four hours as needed Nurtec 75 MG tablet dispersible Take 1 tablet by mouth Daily as needed 02/15/2024 Active Start: 01-04-2024 End: 02-03-2024 take 1 tablet by mouth once daily as needed Rimegepant Sulfate (Nurtec) 75 MG tablet dispersible Indications: Migraine without status migrainosus, not intractable, unspecified migraine type (CMS/HCC) Take 75 mg by mouth Daily as needed (migraine) 8 tablet 3 01/04/2024 02/03/2024 Active simvastatin 20 mg oral tablet (20 sources) HMG-CoA Reductase Inhibitor Start: 08-18-2022 take 1 tablet by mouth in the evening simvastatin (Zocor) 20 MG tablet Take 20 mg by mouth in the evening. 08/18/2022 Active SUMAtriptan 50 mg oral tablet (12 sources) Serotonin-1b and Serotonin-1d Receptor Agonist Start: 11-03-2022 take 1 tablet by mouth once Sumatriptan Succinate (Imitrex) 50 mg Tablet Active 50 MG PO Once November 02, 2022 11:00pm Start: 08-18-2022 End: 01-04-2024 take 1 tablet by mouth every two hours as needed SUMAtriptan (Imitrex) 50 MG tablet TAKE ONE TABLET BY MOUTH AT LEAST 2 HOURS BETWEEN DOSES NEEDED FOR MIGRAINE FOR 30 DAYS 08/18/2022 01/04/2024 Discontinued tiZANidine 4 mg oral tablet (20 sources) Central alpha-2 Adrenergic Agonist Start: 11-03-2022 take 4 mg by mouth once daily at bedtime Tizanidine Active 4 MG PO Daily at bedtime November 02, 2022 11:00pm take 3 tablets by mo uth at bedtime as needed tiZANidine (Zanaflex) 4 MG tablet TAKE THREE TABLETS BY MOUTH AT BEDTIME NEEDED Active topiramate 50 mg oral tablet (20 sources) Start: 03-10-2024 take 1 tablet by mouth twice daily at bedtime topiramate 50 MG tablet Indications: Chronic tension-type headache, not intractable TAKE ONE TABLET BY MOUTH TWICE A DAY IN THE MORNING AND AT BEDTIME 60 tablet 3 03/10/2024 Active Start: 03-10-2024 End: 07-08-2024 take 1 tablet by mouth in the morning topiramate (Topamax) 25 MG tablet Indications: Chronic tension-type headache, not intractable TAKE 1 TABLET (25 MG) BY MOUTH IN THE MORNING AND 1 TABLET (25 MG) BEFORE BEDTIME. IN ADDITION TO 50MG. 60 tablet 3 03/10/2024 07/08/2024 Active Start: 01-04-2024 take 1 tablet by bentley th in the morning topiramate (Topamax) 50 MG tablet Indications: Chronic tension-type headache, not intractable Take 50 mg by mouth in the morning and 50 mg before bedtime. 60 tablet 2 01/04/2024 Active Start: 01-04-2024 End: 02-03-2024 take 1 tablet by mouth in the morning topiramate (Topamax) 25 MG tablet Indications: Chronic tension-type headache, not intractable Take 1 tablet (25 mg) by mouth in the morning and 1 tablet (25 mg) before bedtime. In addition to 50mg. 60 tablet 2 01/04/2024 Active Start: 09-15-2023 End: 12-31-2023 take 1 tablet by mouth once daily in the morning topiramate (Topamax) 25 MG tablet Indications: Chronic tension-type headache, not intractable TAKE ONE TABLET BY MOUTH ONCE DAILY IN THE MORNING (IN ADDITION TO THE 100MG) 30 tablet 11 09/15/2023 12/31/2023 Discontinued (Reorder) Start: 11-03-2022 take 4 tablets by mo uth once daily at bedtime Topiramate (Topamax) 25 mg Tablet Active 100 MG PO Daily at bedtime November 02, 2022 11:00pm 3 tablets Start: 11-03-2022 take 1 tablet by bentley th once daily at bedtime Topiramate (Topamax) 25 mg Tablet Active 25 MG PO Daily at bedtime November 02, 2022 11:00pm 3 tablets traZODone hydrochloride 50 mg oral tablet (20 sources) Serotonin Reuptake Inhibitor Start: 10-06-2023 take 1 tablet by mouth at bedtime traZODone (Desyrel) 50 MG tablet Indications: Insomnia, unspecified type Take 1 tablet (50 mg) by mouth at bedtime 30 tablet 3 10/06/2023 Active Start: 11-03-2022 take 50 mg by mouth once daily at bedtime Trazodone Active 50 MG PO Daily at bedtime November 02, 2022 11:00pm zolpidem tartrate 10 mg oral tablet (20 sources) gamma-Aminobutyric Acid-ergic Agonist Start: 03-10-2024 take 1 tablet by mouth at bedtime zolpidem (Ambien) 10 MG tablet Indications: Insomnia, unspecified type Take 1 tablet (10 mg) by mouth at bedtime Due 03/16/24 30 tablet 3 03/10/2024 Active Start: 10-12-2023 End: 03-10-2024 take 1 tablet by mouth once daily at bedtime zolpidem (Ambien) 10 MG tablet Indications: Insomnia, unspecified type TAKE ONE TABLET BY MOUTH DAILY AT BEDTIME 30 tablet 4 10/12/2023 03/10/2024 Discontinued Start: 11-03-2022 take 10 mg by mouth [...] Problem Classification Problem Date Documented Date Episodic/Chronic Complication of device; implant or graft (2 sources) IUD threads lost; Translations: [Displacement of intrauterine contraceptive device, initial encounter] 01-06-2024 Episodic Conduction disorders (2 sources) Atrioventricular block, second degree; Translations: [Atrioventricular block, second degree] Onset: 12-18-2023 Chronic Contraceptive and procreative management (2 sources) Intrauterine contraceptive device in situ; Translations: [Encounter for routine checking of intrauterine contraceptive device] 01-04-2024 Episodic Deficiency and other anemia (1 source) Anemia, unspecified; Translations: [ANEMIA UNSPECIFIED] Onset: 07-03-2022 Episodic Diabetes mellitus without complication (8 sources) Hyperglycemia, unspecified; Translations: [Impaired glucose tolerance (oral)] Onset: 06-28-2022 Episodic Genitourinary symptoms and ill-defined conditions (2 sources) Female stress incontinence; Translations: [Stress incontinence (female) (male)] 01-06-2024 Chronic Headache; including migraine (20 sources) Migraine; Translations: [Migraine, unspecified, not intractable, without status migrainosus] Onset: 08-08-2023 08-08-2023 Chronic Hypertension with complications and secondary hypertension (2 sources) Hypertensive heart disease without heart failure; Translations: [Hypertensive heart disease without heart failure] Onset: 12-18-2023 Chronic Immunizations and screening for infectious disease (2 sources) Patient encounter status; Translations: [Encounter for screening for human papillomavirus (HPV)] 01-04-2024 Episodic Other female genital disorders (2 sources) Postcoital bleeding; Translations: [Postcoital and contact bleeding] 01-06-2024 Chronic Other hematologic conditions (5 sources) Protein electrophoresis abnormal; Translations: [Other specified abnormalities of plasma proteins] 11-04-2022 Episodic Other hematologic conditions (6 sources) Other specified abnormalities of plasma proteins; Translations: [Other nonspecific findings on examination of blood] Onset: 03-03-2024 11-20-2022 Episodic Other nervous system disorders (16 sources) Cervical syndrome; Translations: [Cervical root disorders, not elsewhere classified] Onset: 08-08-2023 08-08-2023 Chronic Other nervous system disorders (16 sources) Carpal tunnel syndrome; Translations: [Carpal tunnel syndrome, unspecified upper limb] Onset: 08-08-2023 08-08-2023 Chronic Other nervous system disorders (2 sources) Other chronic pain; Translations: [Other chronic pain] Onset: 03-30-2023 Chronic Other non-traumatic joint disorders (2 sources) Other specified arthritis, unspecified site; Translations: [Other specified arthritis, unspecified site] Onset: 02-02-2023 Chronic Other screening for suspected conditions (not mental disorders or infectious disease) (6 sources) Breast neoplasm screening status; Translations: [Encounter for screening mammogram for malignant neoplasm of breast] Onset: 12-18-2023 01-04-2024 Episodic Residual codes; unclassified (18 sources) Obstructive sleep apnea syndrome; Translations: [Obstructive sleep apnea (adult) (pediatric)] Onset: 08-08-2023 08-08-2023 Chronic Residual codes; unclassified (17 sources) Insomnia; Translations: [Insomnia, unspecified] Onset: 08-08-2023 08-08-2023 Episodic Residual codes; unclassified (6 sources) Transient alteration of awareness; Translations: [Transient alteration of awareness] 01-04-2024 Episodic Spondylosis; intervertebral disc disorders; other back problems (20 sources) Degeneration of cervical intervertebral disc; Translations: [Other cervical disc degeneration, unspecified cervical region] Onset: 03-30-2023 08-08-2023 Chronic Syncope (6 sources) Syncope; Translations: [Syncope and collapse] Onset: 12-19-2023 12-02-2023 Episodic Unclassified (1 source) CONTACT W/AND (SUSP) EXPOS COVID-19; Translations: [CONTACT W/AND (SUSP) EXPOS COVID-19] Onset: 08-15-2021 Unclassified (1 source) USP (current) use of antimetabolite agent; Translations: [USP (current) use of antimetabolite agent] Onset: 12-30-2023 Past or Other Problems Problem Classification Problem Date Documented Date Episodic/Chronic Calculus of urinary tract (1 source) Personal history of urinary calculi; Translations: [PERSONAL HISTORY OF URINARY CALCULI] Onset: 08-15-2021 Episodic Conditions associated with dizziness or vertigo (20 sources) Vertigo; Translations: [Dizziness and giddiness] Onset: 08-08-2023 08-08-2023 Episodic Fever of unknown origin (4 sources) Fever presenting with conditions classified elsewhere; Translations: [Fever, unspecified] Onset: 06-02-2023 Episodic Fluid and electrolyte disorders (1 source) Dehydration; Translations: [DEHYDRATION] Onset: 08-15-2021 Episodic Headache; including migraine (16 sources) Headache; Translations: [Headache] Onset: 08-08-2023 08-08-2023 Episodic Malaise and fatigue (19 sources) Weakness; Translations: [Malaise and fatigue] Onset: 08-12-2021 Episodic Other aftercare (3 sources) Other intermediate (current) drug therapy; Translations: [OTH TALENT MANAGER CURRENT DRUG THERAPY] Onset: 08-15-2021 Episodic Other connective tissue disease (18 sources) Muscle pain; Translations: [Myalgia, unspecified site] Onset: 08-08-2023 08-08-2023 Episodic Other connective tissue disease (16 sources) Pain in lower limb; Translations: [Pain in leg, unspecified] Onset: 08-08-2023 08-08-2023 Episodic Other connective tissue disease (2 sources) Fibromyalgia; Translations: [Fibromyalgia] Onset: 11-18-2022 Episodic Other lower respiratory disease (16 sources) Dyspnea on exertion; Translations: [Shortness of breath] Onset: 08-08-2023 08-08-2023 Episodic Other lower respiratory disease (2 sources) Chronic cough; Translations: [Chronic cough] Onset: 06-02-2023 Episodic Other nervous system disorders (16 sources) Skin sensation disturbance; Translations: [Unspecified disturbances of skin sensation] Onset: 08-08-2023 08-08-2023 Episodic Other nervous system disorders (16 sources) Paresthesia; Translations: [Paresthesia of skin] Onset: 08-08-2023 08-08-2023 Episodic Residual codes; unclassified (16 sources) Disturbance in sleep behavior; Translations: [Sleep disorder, unspecified] Onset: 08-08-2023 08-08-2023 Episodic Residual codes; unclassified (2 sources) Personal history of systemic steroid therapy; Translations: [Personal history of systemic steroid therapy] Onset: 09-21-2023 Episodic Spondylosis; intervertebral disc disorders; other back problems (20 sources) Brachial neuritis; Translations: [Radiculopathy, cervical region] Onset: 01-12-2023 08-08-2023 Episodic Unclassified (1 source) USP (current) use of antimetabolite agent; Translations: [USP (current) use of antimetabolite agent] Onset: 12-30-2023 Viral infection (1 source) Viral infection, unspecified; Translations: [VIRAL INFECTION UNSPECIFIED] Onset: 08-15-2021 Episodic Results Test Name Value Interpretation Reference Range Facility Follow-Upon 03-01-2024 Follow-Up [id number] Delicia Serrano 1980 F Date Provider Department Center 03/01/2024 [id number] ROBLERO MP [facility] Family History Problem [...] Father's Sister Father's Brother Brother Level of Service:12447 [place] OFFICE/OUTPATIENT ESTABLISHED LOW MDM 20 MIN Reason for Visit and Comments: Follow-up [396941] - VAMSI C7-T1 Normal [facility] Comprehensive Metabolic Pane raimundo 02-23-2024 Albumin [Mass/Vol] 4.2 g/dL Normal 3.5-5.7 [facility] Comment on above: Performed By: #### C MP, [id number] #### [address] #### KAPPA, SPE, NORMAN SERUM #### [facility] , Albumin/Globulin [Mass ratio] 2.2 {ratio} Normal [facility] Comment on above: Performed By: #### C MP, [id number] #### [facility] [address] [place] [address] [place] #### KAPPA, SPE, NORMAN SERUM #### [facility] , ALP [Catalytic activity/Vol] 67 U/L Normal 34-104 [facility] Comment on above: Performed By: #### C MP, [id number] #### [place] [address] [place] #### KAPPA, SPE, NORMAN SERUM #### [facility] , ALT [Catalytic activity/Vol] 52 U/L Normal 7-52 [facility] Comment on above: Performed By: #### C MP, [id number] #### [facility] [address] [place] [address] [place] #### KAPPA, SPE, NORMAN SERUM #### [facility] , Anion gap [Moles/Vol] 10.0 mmol/L Normal 6.0-15.0 Th e [facility] Comment on above: Performed By: #### C MP, [id number] #### [place] [address] [place] #### KAPPA, SPE, NORMAN SERUM #### [facility] , AST [Catalytic activity/Vol] 22 U/L Normal 13-39 [facility] Comment on above: Performed By: #### C MP, [id number] #### [address] #### KAPPA, SPE, NORMAN SERUM #### [facility] , Bilirubin [Mass/Vol] 0.6 mg/dL Normal 0.3-1.0 [facility] Comment on above: Performed By: #### C MP, [id number] #### [address] #### KAPPA, SPE, NORMAN SERUM #### [facility] , Calcium [Mass/Vol] 8.8 mg/dL Normal 8.6-10.3 [facility] Comment on above: Performed By: #### C MP, [id number] #### [address] #### KAPPA, SPE, NORMAN SERUM #### [facility] , Chloride [Moles/Vol] 109 mmol/L High 98-107 [facility] Comment on above: Performed By: #### C MP, [id number] #### [address] #### KAPPA, SPE, NORMAN SERUM #### [facility] , CO2 [Moles/Vol] 27.3 mmol/L Normal 21.0-31.0 [facility] Comment on above: Performed By: #### C MP, [id number] #### [facility] [address] [place] [address] [place] #### KAPPA, SPE, NORMAN SERUM #### [facility] , Creatinine [Mass/Vol] 0.98 mg/dL Normal 0.60-1.20 [facility] Comment on above: Performed By: #### C MP, [id number] #### [address] #### KAPPA, SPE, NORMAN SERUM #### [facility] , Creatinine Clr Calc Pharmacy 76.40 Normal [facility] Comment on above: Performed By: #### C MP, [id number] #### [place] [address] [place] #### KAPPA, SPE, NORMAN SERUM #### [facility] , GFR/1.73 sq M.predicted MDRD (S/P/Bld) [Vol rate/Area] mL/min/{1.73_m2} Normal [facility] Comment on above: Performed By: #### C MP, [id number] #### [address] #### KAPPA, SPE, NORMAN SERUM #### [facility] , Globulin (S) [Mass/Vol] 1.9 g/dL Normal [facility] Comment on above: Performed By: #### C MP, [id number] #### [place] [address] [place] #### KAPPA, SPE, NORMAN SERUM #### [facility] , Glucose [Mass/Vol] 80 mg/dL Normal 70-100 [facility] Comment on above: Result Comment: [place] Glucose Reference Range is dependent on time and content of last meal. Glucose of more than 200 mg/dL in a nonstressed, ambulatory subject supports the diagnosis of Diabetes Mellitus. ADA recommended reference range Performed By: #### C MP, [id number] #### [place] [address] [place] #### KAPPA, SPE, NORMAN SERUM #### [facility] , Potassium [Moles/Vol] 3.3 mmol/L Low 3.5-5.1 [facility] Comment on above: Performed By: #### C MP, [id number] #### [place] [address] [place] #### KAPPA, SPE, NORMAN SERUM #### [facility] , Protein [Mass/Vol] 6.1 g/dL Low 6.4-8.9 [facility] Comment on above: Performed By: #### C MP, [id number] #### [place] [address] [place] #### KAPPA, SPE, NORMAN SERUM #### [facility] , Sodium [Moles/Vol] 143 mmol/L Normal 136-145 [facility] Comment on above: Performed By: #### C MP, [id number] #### [address] #### KAPPA, SPE, NORMAN SERUM #### [facility] , Urea nitrogen [Mass/Vol] 16 mg/dL Normal 7-25 [facility] Comment on above: Performed By: #### C MP, [id number] #### [place] [address] [place] #### KAPPA, SPE, NORMAN SERUM #### [facility] , Free K+L LT Chains, Qn, Son 02-23-2024 Free [place] Light Chains, S 14.0 mg/L Normal 3.3-19.4 [facility] Comment on above: Performed By: #### C MP, [id number] #### [place] [address] [place] #### KAPPA, SPE, NORMAN SERUM #### [facility] , Free Lambda Light Chains, S 8.3 mg/L Normal 5.7-26.3 [facility] Comment on above: Performed By: #### C MP, [id number] #### [place] [address] [place] #### KAPPA, SPE, NORMAN SERUM #### [facility] , [place]/Lambda Ratio, S 1.69 High 0.26-1.65 [facility] Comment on above: Result Comment: Perf ormed at: [facility] [id number] Aircraft Structure Mechanic: Chato Rincon PhD, Phone: [phone] PERFORMED BY: [place] [address] PATHOLOGIST [employer]ANGE [employer] CÉSAR ROMO M.D. Performed By: #### C MP, [id number] #### [address] #### KAPPA, SPE, NORMAN SERUM #### [facility] , Immunofixation,Serumon 02-22 Immunofixation, Serum Comment: Normal . [facility] Comment on above: Result Comment: Pres ence of monoclonal protein is unclear at this time. Suggest repeat in 3 to 6 months if clinically indicated. Performed By: #### C MP, [id number] #### [place] [address] [place] #### KAPPA, SPE, NORMAN SERUM #### [facility] , Immunoglobulin A, Serum 80 mg/dL Low 87-352 [facility] Comment on above: Performed By: #### C MP, [id number] #### [place] [address] [place] #### KAPPA, SPE, NORMAN SERUM #### [facility] , Immunoglobulin G 679 mg/dL Normal 586-1602 [facility] Comment on above: Performed By: #### C MP, [id number] #### [facility] [address] [place] [address] [place] #### KAPPA, SPE, NORMAN SERUM #### [facility] , Immunoglobulin M, Serum 68 mg/dL Normal 26-217 [facility] Comment on above: Result Comment: Perf ormed at: CB - [facility] [address] [place], [place] [id number] Aircraft Structure Mechanic: Chato Rincon PhD, Phone: [phone] Performed By: #### C MP, [id number] #### [address] #### KAPPA, SPE, NORMAN SERUM #### [facility] , Protein Electrophoresis, Ser umon 02-23-2024 Albumin [Mass/Vol] 4.0 g/dL Normal 2.9-4.4 [facility] Comment on above: Performed By: #### C MP, [id number] #### [address] #### KAPPA, SPE, NORMAN SERUM #### [facility] , Albumin/Globulin [Mass ratio] 1.6 {ratio} Normal 0.7-1.7 [facility] Comment on above: Performed By: #### C MP, [id number] #### [address] #### KAPPA, SPE, NORMAN SERUM #### [facility] , Xkzpr-6-Pvfxhfvl 0.3 g/dL Normal 0.0-0.4 [facility] Comment on above: Performed By: #### C MP, [id number] #### [address] #### KAPPA, SPE, NORMAN SERUM #### [facility] , Nxgim-8-Vlahamoc 0.8 g/dL Normal 0.4-1.0 [facility] Comment on above: Performed By: #### C MP, [id number] #### [place] [address] [place] #### KAPPA, SPE, NORMAN SERUM #### [facility] , Beta Globulin 0.8 g/dL Normal 0.7-1.3 [facility] Comment on above: Performed By: #### C MP, [id number] #### [place] [address] [place] #### KAPPA, SPE, NORMAN SERUM #### [facility] , Gamma Globulin 0.6 g/dL Normal 0.4-1.8 [facility] Comment on above: Performed By: #### C MP, [id number] #### [place] [address] [place] #### KAPPA, SPE, NORMAN SERUM #### [facility] , Globulin (S) [Mass/Vol] 2.5 g/dL Normal 2.2-3.9 [facility] Comment on above: Performed By: #### C MP, [id number] #### [address] #### KAPPA, SPE, NORMAN SERUM #### [facility] , M-Antwan Not Observed Normal Not Observed [facility] Comment on above: Performed By: #### C MP, [id number] #### [address] #### KAPPA, SPE, NORMAN SERUM #### [facility] , Protein [Mass/Vol] 6.5 g/dL Normal 6.0-8.5 [facility] Comment on above: Performed By: #### C MP, [id number] #### [address] #### KAPPA, SPE, NORMAN SERUM #### [facility] , SPE-Note Comment Normal . [facility] Comment on above: Result Comment: Prot ein electrophoresis scan will follow via computer, mail, or legal examiner delivery. Performed at: [address] [id number] Aircraft Structure Mechanic: Chato Rincon PhD, Phone: [phone] Performed By: #### C MP, [id number] #### [address] [place] [address] [place] #### KAPPA, SPE, NORMAN SERUM #### [facility] , US liveron 02-23-2024 US liver [facility] Main [place] [address] [place] [address] Ultrasound Report Signed Patient: Delicia Serrano MR#: [id number] : 1980 Acct:[id number] Age/Sex: 43 / F ADM Date: 02/23/24 Loc: XT Room: Type: [facility] RCR Attending Dr: Nicki Duran APRN Ordering Provider: Mariana Cortes MD Date of Service: 02/23/24 US/US liver: R77.8 - Other specified abnormalities of plasma proteins Copies to: TATUM Bautista MD LIMITED ABDOMINAL ULTRASOUND: CLINICAL HISTORY: Right upper quadrant pain nausea vomiting elevated LFTs COMPARISON: None TECHNIQUE: Grayscale and color Doppler images of the right upper quadrant organs were obtained. FINDINGS: Pancreas: Visualized portions appear unremarkable. Liver: No focal mass or intrahepatic ductal dilatation. Hepatopedal flow is seen within the portal vein. Gallbladder: Unremarkable. CBD: 3.9 mm. US/US liver IMPRESSION: NO ACUTE PROCESS. . Impression dictated by: Moose Velazco Jr., D.OAdrienne02/23/2024 5:30 PM Dictation Location: [place] [address] Tech: Chrissy Andrade Transcribed By: [facility] 02/23/241729 Dictated By: Moose Velazco Jr, DO 02/23/24 1728 Signed By: 02/23/24 1730 Normal [facility] Vit. B12/Folate Profileon Cobalamin (Vitamin B12) [Mass/Vol] 696 pg/mL Normal 180-914 [facility] Comment on above: Performed By: #### C MP, [id number] #### [facility] [address] [place] [address] #### KAPPA, SPE, NORMAN SERUM #### [facility] , Folate >49.6 Normal >5.9 [facility] Comment on above: Result Comment: Francesca te reference range: >5.9 ng/ml The WHO technical consultation on folate and vitamin b12 deficiencies has determined that folate concentrations less than 4 ng/ml are considered deficient. PERFORMED BY: [place] [address] PATHOLOGIST [employer]ANGE A[employer] CÉSAR ROMO M.D. Performed By: #### C MP, [id number] #### [place] [address] [place] #### KAPPA, SPE, NORMAN SERUM #### [facility] , Office Visiton 02-19-2024 Follow-up visit [id number] Delicia Serrano 1980 F Date Provider Department Center 02/19/2024 [id number] Family History Problem Relation Age of [...] Father's Sister Father's Brother Brother Level of Service:92936 [place] OFFICE/OUTPATIENT ESTABLISHED MOD MDM 30 MIN Reason for Visit and Comments: Abnormal ECG [293] Syncope [506] - Follow up event monitor, tilt table study, and echo. Dizziness [] Palpitations [] - Intermittent, and has been able to hear her pulse in her ear lately. At all times. Normal [facility] Methylmalonate [Moles/Vol]on 02-14-2024 METHYLMALONIC ACID 125 0 - 378 [facility] Comment on above: This test was develo ped and its performance characteristics determined by [facility]. It has not been cleared or approved by the Food and Drug Administration. Performed at: - [facility] [id number] Aircraft Structure Mechanic: Juan Tejada MD, Phone: [phone] [facility] CBC W Auto Differential pane l (Bld)on 02-10-2024 Basophils (Bld) [#/Vol] 0 10*3/uL 0.0 - 0.2 10*3/uL [facility] Basophils/100 WBC Manual cnt (Syn fld) 0.7 % . [facility] Eosinophils (Bld) [#/Vol] 0.3 10*3/uL 0.0 - 0.45 10*3/uL [facility] Eosinophils/100 WBC Manual cnt (Syn fld) 4.7 % . [facility] Erythrocyte distribution width (RBC) [Ratio] 14.6 % 11.9 - 15.3 % [facility] Hematocrit (Bld) [Volume fraction] 38.2 % 34.0 - 46.4 % [facility] Hemoglobin (Bld) [Mass/Vol] 12.7 g/dL 11.8 - 15.4 g/dL [facility] Lymphocytes (Bld) [#/Vol] 2.2 10*3/uL 1.00 - 4.8 10*3/uL [facility] Lymphocytes/100 WBC Manual cnt (Syn fld) 35.1 % . [facility] MCH (RBC) [Entitic mass] 32.5 pg 24.7 - 34.[address] [facility] MCHC (RBC) [Mass/Vol] 33.3 g/dL 32.0 - 35.0 g/dL [facility] MCV (RBC) [Entitic vol] 97.7 fL 80 - [address] [facility] Monocytes (Bld) [#/Vol] 0.2 10*3/uL 0.0 - 0.8 10*3/uL [facility] Monocytes+Macrophages/ 100 WBC Manual cnt (Syn fld) 2.5 % . [facility] Neutrophils (Bld) [#/Vol] 3.5 10*3/uL 1.8 - 7.7 10*3/uL [facility] Neutrophils/100 WBC Manual cnt (Syn fld) 57 % . [facility] NRBC 0.1 /100{WBC} 0 - 0.5 /100{WBC} [facility] Platelet mean volume (Bld) [Entitic vol] 6.3 fL 6.3 - 10.[address] [facility] Platelets (Bld) [#/Vol] 294 10*3/uL 150 - 450 10*3/uL [facility] RBC LM.HPF (Urine sed) [#/Area] 3.9 10*6/uL 3.60 - 5.00 10*6/uL [facility] WBC (Bld) [#/Vol] 6.2 10*3/uL 3.8 - 11.6 10*3/uL [facility] WBC LM.HPF (Urine sed) [#/Area] 6.2 10*3/uL 3.8 - 11.6 10*3/uL [facility] Complete Blood Count Auto Di ffon 02-10-2024 Basophils (Bld) [#/Vol] 0.0 10*3/uL Normal 0.0-0.2 [facility] Comment on above: Result Comment: PERF ORMED BY: [facility] [address] [place] [address] PATHOLOGIST RANGE A[employer] CÉSAR ROMO M.D. Performed By: #### F E and TIBC, KIMBERLY, CMP, CBC ####[address]#### METH ####[facility] , Basophils/100 WBC (Bld) 0.7 % Normal . [facility] Comment on above: Performed By: #### F E and TIBC, KIMBERLY, CMP, CBC ####[place] [address] [place]#### METH ####[facility] , Eosinophils (Bld) [#/Vol] 0.3 10*3/uL Normal 0.0-0.45 [facility] Comment on above: Performed By: #### F E and TIBC, KIMBERLY, CMP, CBC ####[place] [address] [place]#### METH ####[facility] , Eosinophils/100 WBC (Bld) 4.7 % Normal . [facility] Comment on above: Performed By: #### F E and TIBC, [id number], CMP, CBC ####[address]#### METH ####[facility] , Erythrocyte distribution width (RBC) [Ratio] 14.6 % Normal 11.9-15.3 [facility] Comment on above: Performed By: #### F E and TIBC, KIMBERLY, CMP, CBC ####[address]#### METH ####[facility] , Hematocrit (Bld) [Volume fraction] 38.2 % Normal 34.0-46.4 [facility] Comment on above: Performed By: #### F E and TIBC, KIMBERLY, CMP, CBC ####[address]#### METH ####[facility] , Hemoglobin (Bld) [Mass/Vol] 12.7 g/dL Normal 11.8-15.4 [facility] Comment on above: Performed By: #### F E and TIBC, KIMBERLY, CMP, CBC ####[address]#### METH ####[facility] , Lymphocytes (Bld) [#/Vol] 2.2 10*3/uL Normal 1.00-4.8 [facility] Comment on above: Performed By: #### F E and TIBC, KIMBERLY, CMP, CBC ####[place] [address] [place]#### METH ####[facility] , Lymphocytes/100 WBC (Bld) 35.1 % Normal . [facility] Comment on above: Performed By: #### F E and TIBC, KIMBERLY, CMP, CBC ####[address] [place] [address] [place]#### METH ####[facility] , MCH (RBC) [Entitic mass] 32.5 pg Normal 24.7-34.3 [facility] Comment on above: Performed By: #### F E and TIBC, KIMBERLY, CMP, CBC ####[address]#### METH ####[facility] , MCV (RBC) [Entitic vol] 97.7 fL Normal 80-100 [facility] Comment on above: Performed By: #### F E and TIBC, KIMBERLY, CMP, CBC ####[address]#### METH ####[facility] , Mean Corpuscular HGB Conc 33.3 g/dL Normal 32.0-35.0 [facility] Comment on above: Performed By: #### F E and TIBC, KIMBERLY, CMP, CBC ####[address]#### METH ####[facility] , Monocytes (Bld) [#/Vol] 0.2 10*3/uL Normal 0.0-0.8 [facility] Comment on above: Performed By: #### F E and TIBC, KIMBERLY, CMP, CBC ####[address]#### METH ####[facility] , Monocytes/100 WBC (Bld) 2.5 % Normal . [facility] Comment on above: Performed By: #### F E and TIBC, KIMBERLY, CMP, CBC ####[address]#### METH ####[facility] , Neutrophils (Bld) [#/Vol] 3.5 10*3/uL Normal 1.8-7.7 [facility] Comment on above: Performed By: #### F E and TIBC, KIMBERLY, CMP, CBC ####[address]#### METH ####[facility] , Neutrophils/100 WBC (Bld) 57.0 % Normal . [facility] Comment on above: Performed By: #### F E and TIBC, KIMBERLY, CMP, CBC ####[address]#### METH ####[facility] , NRBC% 0.1 /100{WBC} Normal 0-0.5 [facility] Comment on above: Performed By: #### F E and TIBC, KIMBERLY, CMP, CBC ####[address]#### METH ####[facility] , Platelet mean volume (Bld) [Entitic vol] 6.3 fL Normal 6.3-10.7 [facility] Comment on above: Performed By: #### F E and TIBC, KIMBERLY, CMP, CBC ####[address]#### METH ####[facility] , Platelets (Bld) [#/Vol] 294 10*3/uL Normal 150-450 [facility] Comment on above: Performed By: #### F E and TIBC, KIMBERLY, CMP, CBC ####[place] [address] [place]#### METH ####[facility] , RBC (Bld) [#/Vol] 3.90 10*6/uL Normal 3.60-5.00 [facility] Comment on above: Performed By: #### F E and TIBC, KIMBERLY, CMP, CBC ####[place] [address] [place]#### METH ####[facility] , WBC (Bld) [#/Vol] 6.2 10*3/uL Normal 3.8-11.6 [facility] Comment on above: Performed By: #### F E and TIBC, KIMBERLY, CMP, CBC ####[address]#### METH ####[facility] , Comprehensive Metabolic Pane raimundo 02-10-2024 Albumin [Mass/Vol] 4.2 g/dL Normal 3.5-5.7 [facility] Comment on above: Performed By: #### F E and TIBC, KIMBERLY, CMP, CBC ####[address]#### METH ####[facility] , Albumin/Globulin [Mass ratio] 2.1 {ratio} Normal [facility] Comment on above: Performed By: #### F E and TIBC, KIMBERLY, CMP, CBC ####[address]#### METH ####[facility] , ALP [Catalytic activity/Vol] 58 U/L Normal 34-104 [facility] Comment on above: Performed By: #### F E and TIBC, KIMBERLY, CMP, CBC ####[address]#### METH ####[facility] , ALT [Catalytic activity/Vol] 62 U/L High 7-52 [facility] Comment on above: Performed By: #### F E and TIBC, KIMBERLY, CMP, CBC ####[place] [address] [place]#### METH ####[facility] , Anion gap [Moles/Vol] 9.9 mmol/L Normal 6.0-15.0 [facility] Comment on above: Performed By: #### F E and TIBC, KIMBERLY, CMP, CBC ####[address]#### METH ####[facility] , AST [Catalytic activity/Vol] 33 U/L Normal 13-39 [facility] Comment on above: Performed By: #### F E and TIBC, KIMBERLY, CMP, CBC ####[address]#### METH ####[facility] , Bilirubin [Mass/Vol] 0.5 mg/dL Normal 0.3-1.0 [facility] Comment on above: Performed By: #### F E and TIBC, KIMBERLY, CMP, CBC ####[address]#### METH ####[facility] , Calcium [Mass/Vol] 8.8 mg/dL Normal 8.6-10.3 [facility] Comment on above: Performed By: #### F E and TIBC, KIMBERLY, CMP, CBC ####[address]#### METH ####[facility] , Chloride [Moles/Vol] 108 mmol/L High 98-107 [facility] Comment on above: Performed By: #### F E and TIBC, KIMBERLY, CMP, CBC ####[place] [address] [place]#### METH ####[facility] , CO2 [Moles/Vol] 26.1 mmol/L Normal 21.0-31.0 [facility] Comment on above: Performed By: #### F E and TIBC, KIMBERLY, CMP, CBC ####[place] [address] [place]#### METH ####[facility] , Creatinine [Mass/Vol] 0.95 mg/dL Normal 0.60-1.20 [facility] Comment on above: Performed By: #### F E and TIBC, KIMBERLY, CMP, CBC ####[address]#### METH ####[facility] , Creatinine Clr Calc Pharmacy 87.87 Normal [facility] Comment on above: Performed By: #### F E and TIBC, KIMBERLY, CMP, CBC ####[place] [address] [place]#### METH ####[facility] , GFR/1.73 sq M.predicted MDRD (S/P/Bld) [Vol rate/Area] mL/min/{1.73_m2} Normal [facility] Comment on above: Performed By: #### F E and TIBC, KIMBERLY, CMP, CBC ####[address]#### METH ####[facility] , Globulin (S) [Mass/Vol] 2.0 g/dL Normal [facility] Comment on above: Performed By: #### F E and TIBC, KIMBERLY, CMP, CBC ####[place] [address] [place]#### METH ####[facility] , Glucose [Mass/Vol] 102 mg/dL High 70-100 [facility] Comment on above: Result Comment: [place] Glucose Reference Range is dependent on time and content of last meal. Glucose of more than 200 mg/dL in a nonstressed, ambulatory subject supports the diagnosis of Diabetes Mellitus. ADA recommended reference range Performed By: #### F E and TIBC, KIMBERLY, CMP, CBC ####[place] [address] [place]#### METH ####[facility] , Potassium [Moles/Vol] 4.0 mmol/L Normal 3.5-5.1 [facility] Comment on above: Performed By: #### F E and TIBC, KIMBERLY, CMP, CBC ####[place] [address] [place]#### METH ####[facility] , Protein [Mass/Vol] 6.2 g/dL Low 6.4-8.9 [facility] Comment on above: Performed By: #### F E and TIBC, KIMBERLY, CMP, CBC ####[place] [address] [place]#### METH ####[facility] , Sodium [Moles/Vol] 140 mmol/L Normal 136-145 [facility] Comment on above: Performed By: #### F E and TIBC, KIMBERLY, CMP, CBC ####[address]#### METH ####[facility] , Urea nitrogen [Mass/Vol] 14 mg/dL Normal 7-25 [facility] Comment on above: Performed By: #### F E and TIBC, KIMBERLY, CMP, CBC ####[address]#### METH ####[facility] , Ferritinon 02-10-2024 Ferritin [Mass/Vol] 121.5 ng/mL Normal 11.0-306.8 [facility] Comment on above: Result Comment: PERF ORMED BY: [facility] [address] [facility] [place] [address] PATHOLOGIST [employer]ANGE A[employer] CÉSAR ROMO M.D. Performed By: #### F E and TIBC, KIMBERLY, CMP, CBC ####[place] [address] [place]#### METH ####[facility] , Iron and TIBC Profileon 01-15 % Iron Saturation 40.1 % Normal 20-50 [facility] Comment on above: Performed By: #### F E and TIBC, KIMBERLY, CMP, CBC ####[place] [id number] [facility]#### METH ####[facility] , Iron [Mass/Vol] 114 ug/dL Normal 50-212 [facility] Comment on above: Performed By: #### F E and TIBC, KIMBERLY, CMP, CBC ####[address]#### METH ####[facility] , Total Iron Binding Capacity 284 ug/dL Normal 255-450 [facility] Comment on above: Performed By: #### F E and TIBC, KIMBERLY, CMP, CBC ####[address]#### METH ####[facility] , Transferrin [Mass/Vol] 203 mg/dL Normal 203-362 Th e [facility] Comment on above: Performed By: #### F E and TIBC, KIMBERLY, CMP, CBC ####[address]#### METH ####[facility] , Methylmalonic Acidon 11-27-2 024 Methylmalonic Acid 125 Normal 0-378 [facility] [facility] Comment on above: Result Comment: This test was developed and its performance characteristics determined by [facility]. It has not been cleared or approved by the Food and Drug Administration. Performed at: [address] [id number] Aircraft Structure Mechanic: Juan Tejada MD, Phone: [phone] PERFORMED BY: [facility] [address] [place] [address] PATHOLOGIST RANGE AID CÉSAR ROMO M.D. Performed By: #### F E and TIBC, KIMBERLY, CMP, CBC ####[address]#### METH ####[facility] , [facility] 02-04-2024 Refill [id number] Delicia Serrano 1980 F Date Provider Department Center 02/04/2024 92850-LKGQZYVETTE ROBLERO MP PAIN Medical Pavi Family History Problem [...] Reason for Visit and Comments: Med Refill [914999] Normal [facility] BI MAMMOGRAM SCREENING TOMOS YNTHESIS BILATERALon 02-01-2024 BI MAMMOGRAM SCREENING TOMOSYNTHESIS BILATERAL This is a summary report. The complete report is available in the patient's medical record. If you cannot access the medical record, please contact the sending organization for a detailed fax or copy. Examination: BI MAMMOGRAM SCREENING TOMOSYNTHESIS BILATERAL Clinical History: screen Technique: Screening digital mammography study of both breasts was performed with 2-D and 3-D tomosynthesis imaging. No prior study available for comparison. Findings: There is no evidence of dominant spiculated mass, grouped microcalcifications, or skin thickening which would be suggestive of malignancy. Axillary lymph nodes are noted bilaterally. Bilateral breast implants appear grossly unremarkable, no obvious contour abnormality or leak. IMPRESSION: Impression: No specific evidence of malignancy seen in either breast. BIRADS 2 - Benign DENSITY: The breasts are almost entirely fatty FOLLOW-UP: Routine Screening Mamm ELECTRONICALLY SIGNED BY: Toni Victoria M.D. Normal Not Available Comment on above: Order Comment: U/S a nd spot compression if indicated 3601-29-2024 36 Pt was called and no tified that liver panel Test should be the only test that she have to get done Normal [facility] 36on 01-28-2024 36 Pt called today and state that on the last visit 12/30/23 you discuss with with to repeat labs. Pt want to know was the Hepatic Function Panel the only test you want her to repeat or get done. Normal [facility] HEPATIC FUNCTION PANELon Albumin [Mass/Vol] 4.7 g/dL Normal 3.5-5.7 [facility] Comment on above: Performed By: #### L [id number] #### [facility] ([facility]) [address] [place] [address] ALP [Catalytic activity/Vol] 66 U/L Normal 34-104 [facility] Comment on above: Performed By: #### L [id number] #### [facility] ([facility]) [address] [place] [address] ALT [Catalytic activity/Vol] 56 U/L High 7-52 [facility] Comment on above: Performed By: #### L [id number] #### [facility] ([facility]) [address] [place] [address] AST [Catalytic activity/Vol] 30 U/L Normal 13-39 [facility] Comment on above: Performed By: #### L [id number] #### [facility] ([facility]) [address] [place] [address] Bilirubin [Mass/Vol] 0.6 mg/dL Normal 0.3-1.0 [facility] Comment on above: Performed By: #### L [id number] #### [facility] ([facility]) [address] [place] [address] Magnesium [Mass/Vol] 0.1 mg/dL Normal 0-0.2 [facility] Comment on above: Performed By: #### L [id number] #### [facility] ([facility]) [address] [place] [address] Protein [Mass/Vol] 7.1 g/dL Normal 6.0-8.3 [facility] Comment on above: Performed By: #### L [id number] #### [facility] ([facility]) [address] [place] [address] Labon 01-28-2024 Lab [id number] Delicia Serrano 1980 F Date Provider Department Center 01/28/2024 2245-[facility] RESOURCE [facility] Medical Family History Problem Relation Age of Onset [...] Daughter Father's Sister Father's Brother Brother Normal [facility] Telephoneon 01-28-2024 Telephone [id number] Delicia Serrano 1980 F Provider Department Center 01/28/2024 723-JARED ECHEVARRIA RHC RHEUM [facility] Family History Problem [...] Daughter Father's Sister Father's Brother Brother Normal [facility] 36on 01-26-2024 Pharmacy is calling to request refill on Naltrexone 1.5 mg once daily. This can be sent to [facility] pharmacy updated in system. Thank you This phone message was created by the Ambulatory float staff. If you need retail support associate follow up regarding this patient, please make your appropriate clinic staff member aware. Thank you. [facility] HPon 01-19-2024 History Of Present I llbetty Delicia Serrano is a 43 y.o. female presenting for C7/T1. No acute changes from prior HPI noted on previous clinic note as noted below. HPI per prior note: 43 year old female here for follow [...] Cymbalta BID to see if that helps. Past Medical History She has a past medical history of Back pain, Chronic pain disorder, Cluster headache, Extremity pain, Fibromyalgia, primary, Headache, Headache, tension-type, Joint pain, Low back pain, Lyme disease, Migraine, Peripheral neuropathy, and Rheumatoid arthritis ([facility]). Surgical History She has a past [...] Negro Hyperlipidemia Father Negro Arthritis Maternal Grandfather [facility] [place] [facility] Maternal Grandfather Dominick Diabetes Maternal Grandfather Dominick Stroke Maternal Grandfather [place] Arthritis Maternal Grandmother Raydene Cancer Maternal Grandmother [...] admission) Last Recorded Vitals Visit Vitals BP 99/62 Pulse 76 Resp 20 SpO2 96% OB Status Implant Smoking Status Never Relevant Lab Results Lab Results Component Value Date NA 138 12/30/2023 K 3.9 12/30/2023 CL 108 (H) 12/30/2023 CO2 23 12/30/2023 BUN 17 12/30/2023 CREATININE 0.80 12/30/2023 GLUCOSE 93 12/30/2023 CALCIUM 8.8 12/30/2023 ANIONGAP 11 12/30/2023 EGFR 94.3 12/30/2023 BCR 21.3 12/30/2023 Relevant Imaging Results [place] in Pain Clinic Narrative: INTRAOPERATIVE FLUOROSCOPY HISTORY: Cervical radiculopathy Impression: Intraoperative fluoroscopy provided for the clinical service during during cervical epidural steroid injection. Reference air kerma 3.1 mGy. A radiologist was not present during this procedure. Questions regarding this exam should be directed to the clinical service that performed the procedure. This dictation was generated for documentation purposes for the fluoroscopic equipment utilization. Electronically signed: Frantz Gongora MD. Assessment/Plan Active Problems: There are no active Hospital Problems. 1. Radiculopathy, cervical region Proceed with procedure as scheduled/planned. Normal [facility] NURSNOTEon 01-19-2024 NURSNOTE Interventional Pain Management Nursing Note / Nurse Post-Call Note Narrative Post call VAMSI C7/T1, spoke with patient, states feeling good today, rates pain a 2/10. Reminder of follow up on 03/01/24, confirmed. 01/20/24 0855 Physical Condition (Summarize discussion in comments) Have you had trouble breathing? No Have you had a sore throat? No Have you vomited or felt nauseated? No Have you had a fever? No Follow Up (Summarize discussion in comments) Have you done any of the following since your surgery? None Patient given contact information for surgery department and physician Yes Pre-Op Pain Assessment Pain Assessment Pain Score: 7 Pain Location: Neck Post-Op Pain Assessment Pain Assessment Pain Score: 2 Pain Location: Neck Normal [facility] Orders Onlyon 01-11-2024 Orders Only [id number] Delicia Serrano 1980 Date Provider Department Center 01/11/2024 02427-QHAWWYVETTE ROBLERO PAIN Medical Pavi Family History Problem Relation [...] Daughter Father's Sister Father's Brother Brother Normal [facility] 36on 01-07-2024 36 Concerning Echo ----- Message ----- From: Perlita Sanford MD Sent: 01/01/2024 1:59 PM EDT To: Clotilde Park MA Subject: RE: Scan Totally normal echo Normal [facility] Orders Onlyon 12-31-2023 Orders Only [id number] Delicia Serrano 1980 F Date Provider Department Center 12/31/2023 Sabrina4-CHRISTIANNE DA SILVA [facility] RHEUM [facility] [...] Daughter Father's Sister Father's Brother Brother Normal [facility] CBC WITH AUTO DIFFERENTIALon 12-30-2023 Basophils (Bld) [#/Vol] 0.04 10*3/uL Normal 0.00-0.20 [facility] Comment on above: Performed By: #### L [id number] #### [facility] ([facility]) [address] [place] [address] Basophils/100 WBC (Bld) 0.5 % Normal 0.0-1.0 [facility] Comment on above: Performed By: #### L [id number] #### [facility] ([facility]) [address] [place] [address] Eosinophils (Bld) [#/Vol] 0.29 10*3/uL Normal 0.00-0.50 [facility] Comment on above: Performed By: #### L [id number] #### [facility] [address] [place] [address] Eosinophils/100 WBC (Bld) 3.4 % Normal 0.0-6.0 [facility] Comment on above: Performed By: #### L [id number] #### [facility] ([facility]) [address] [place] [address] Erythrocyte distribution width (RBC) [Ratio] 14.8 % Normal 11.5-15.0 [facility] Comment on above: Performed By: #### L [id number] #### [facility] ([facility]) [address] [place] [address] ERYTHROCYTE MEAN CORPUSCULAR HEMOGLOBIN CONCENTRATION (G/DL) BY AUTOMATED 32.4 g/dL Normal 32.0-35.0 [facility] Comment on above: Performed By: #### L [id number] #### [facility] ([facility]) [address] [place] [address] Hematocrit (Bld) [Volume fraction] 38.3 % Normal 36.0-48.0 [facility] Comment on above: Performed By: #### L [id number] #### [facility] (BEAK[facility]) [address] [place] [address] Hemoglobin (Bld) [Mass/Vol] 12.4 g/dL Normal 12.0-15.0 [facility] Comment on above: Performed By: #### L [id number] #### [facility] ([facility]) [address] [place] [address] Immature granulocytes (Bld) [#/Vol] 0.01 10*3/uL Normal 0.00-0.20 [facility] Comment on above: Performed By: #### L [id number] #### [facility] ([facility]) [address] [place] [address] Immature granulocytes/100 WBC (Bld) 0.1 % Normal 0.0-1.0 [facility] Comment on above: Performed By: #### L [id number] #### [facility] ([facility]) [address] [place] [address] Lymphocytes (Bld) [#/Vol] 3.62 10*3/uL Normal 1.20-4.00 [facility] Comment on above: Performed By: #### L [id number] #### [facility] ([facility]) [address] [place] [address] Lymphocytes/100 WBC (Bld) 42.1 % Normal 20.0-45.0 [facility] Comment on above: Performed By: #### L [id number] #### [facility] ([facility]) [address] [place] [address] MCH (RBC) [Entitic mass] 31.7 pg Normal 27.0-33.0 [facility] Comment on above: Performed By: #### L [id number] #### [facility] ([facility]) [address] [place] [address] MCV (RBC) [Entitic vol] 98.0 fL Normal 82.0-98.0 [facility] Comment on above: Performed By: #### L [id number] #### [facility] ([facility]) [address] [place] [address] Monocytes (Bld) [#/Vol] 0.23 10*3/uL Normal 0.10-1.00 [facility] Comment on above: Performed By: #### L [id number] #### [facility] ([facility]) [address] [place] [address] Monocytes/100 WBC (Bld) 2.7 % Low 5.0-12.0 [facility] Comment on above: Performed By: #### L [id number] #### [facility] ([facility]) [address] [place] [address] Neutrophils (Bld) [#/Vol] 4.40 10*3/uL Normal 1.60-7.60 [facility] Comment on above: Performed By: #### L [id number] #### [facility] ([facility]) [address] [place] [address] Neutrophils/100 WBC (Bld) 51.2 % Normal 40.0-72.0 [facility] Comment on above: Performed By: #### L [id number] #### [facility] ([facility]) [address] [place] [address] NRBC (PER 100 WBCS) BY AUTOMATED COUNT 0.0 % Normal 0 [facility] Comment on above: Performed By: #### L [id number] #### [facility] ([facility]) [address] [place] [address] PLATELETS (10*3/UL) IN BLOOD AUTOMATED COUNT 347 10*3/uL Normal 150-400 [facility] Comment on above: Performed By: #### L [id number] #### [facility] [address] [place] [address] RBC (Bld) [#/Vol] 3.91 10*6/uL Normal 3.80-5.00 [facility] Comment on above: Performed By: #### L [id number] #### [facility] [address] [place] [address] WBC (Bld) [#/Vol] 8.59 10*3/uL Normal 4.00-10.60 [facility] Comment on above: Performed By: #### L [id number] #### [facility] ([facility]) [address] [place] [address] COMPREHENSIVE METABOLIC PANE Raimundo 12-30-2023 Albumin [Mass/Vol] 4.4 g/dL Normal 3.5-5.7 [facility] Comment on above: Performed By: #### L [id number] #### [facility] ([facility]) [address] [place] [address] ALP [Catalytic activity/Vol] 54 U/L Normal 34-104 [facility] Comment on above: Performed By: #### L [id number] #### [facility] ([facility]) [address] [place] [address] ALT [Catalytic activity/Vol] 65 U/L High 7-52 [facility] Comment on above: Performed By: #### L [id number] #### [facility] ([facility]) [address] [place] [address] Anion gap [Moles/Vol] 11 mmol/L Normal 7-20 [facility] Comment on above: Performed By: #### L [id number] #### [facility] ([facility] [address] [place] [address] AST [Catalytic activity/Vol] 33 U/L Normal 13-39 [facility] Comment on above: Performed By: #### L [id number] #### [facility] ([facility] [address] [place] [address] Bilirubin [Mass/Vol] 0.6 mg/dL Normal 0.3-1.0 [facility] Comment on above: Performed By: #### L [id number] #### [facility] ([facility] [address] [place] [address] Calcium [Mass/Vol] 8.8 mg/dL Normal 8.6-10.3 [facility] Comment on above: Performed By: #### L [id number] #### [facility] ([facility] [address] [place] [address] Chloride [Moles/Vol] 108 mmol/L High 98-107 [facility] Comment on above: Performed By: #### L [id number] #### [facility] ([facility]) [address] [place] [address] CO2 [Moles/Vol] 23 mmol/L Normal 21-31 [facility] Comment on above: Performed By: #### L [id number] #### [facility] ([facility]) [address] [place] [address] Creatinine [Mass/Vol] 0.80 mg/dL Normal 0.60-1.20 [facility] Comment on above: Performed By: #### L [id number] #### [facility] ([facility]) [address] [place] [address] GLOMERULAR FILTRATION RATE ML/MIN/1.73 SQ M.PREDICTED 94.3 mL/min/1.73m*2 Normal >60.0 [facility] Comment on above: Result Comment: [facility]???s estimated glomerular filtration rate (eGFR) will [...] individuals. Performed By: #### L [id number] #### [facility] ([facility]) [address] [place] [address] Glucose [Mass/Vol] 93 mg/dL Normal 70-100 [facility] Comment on above: Performed By: #### L [id number] #### [facility] ([facility]) [address] [place] [address] Potassium [Moles/Vol] 3.9 mmol/L Normal 3.5-5.1 [facility] Comment on above: Performed By: #### L [id number] #### [facility] ([facility]) [address] [place] [address] Protein [Mass/Vol] 6.6 g/dL Normal 6.0-8.3 [facility] Comment on above: Performed By: #### L [id number] #### [facility] ([facility]) [address] [place] [address] Sodium [Moles/Vol] 138 mmol/L Normal 136-145 [facility] Comment on above: Performed By: #### L [id number] #### [facility] ([facility]) [address] [place] [address] Urea nitrogen [Mass/Vol] 17 mg/dL Normal 7-25 [facility] Comment on above: Performed By: #### L [id number] #### [facility] ([facility]) [address] [place] [address] UREA NITROGEN/CREATININE (MASS RATIO) IN SER/PLAS 21.3 Normal [facility] Comment on above: Performed By: #### L [id number] #### [facility] ([facility]) [address] [place] [address] CORTISOLon 12-30-2023 CORTISOL (UG/DL) IN SER/PLAS 7.3 ug/dL Normal 0-9 [facility] Comment on above: Performed By: #### L [id number] #### [facility] ([facility]) [address] [place] [address] Follow-Upon 12-30-2023 Follow-Up [id number] Delicia Serrano 1980 F Date Provider Department Center 12/30/2023 3554-CHRISTIANNE DA SILVA [facility] RHEUM [facility] Family History Problem Relation [...] Father's Sister Father's Brother Brother Level of Service:14099 [place] OFFICE/OUTPATIENT ESTABLISHED MOD MDM 30 MIN (GC) Reason for Visit and Comments: Follow-up [160776] Normal [facility] HEMOGLOBIN A1Con 12-30-2023 Glucose [Mass/Vol] 91 mg/dL Normal [facility] Comment on above: Performed By: #### L [id number] #### [facility] (BEAKER) [address] [place] [address] HbA1c (Bld) [Mass fraction] 4.8 % Normal 4.0-6.0 [facility] Comment on above: Performed By: #### L [id number] #### [facility] ([facility]ER) [address] [place] [address] Orders Onlyon 12-30-2023 Orders Only [id number] Delicia Serrano 1980 F Date Provider Department Center 12/30/2023 RAMON HAGER KIRK Knott [facility] Family History Problem Relation Age of [...] Daughter Father's Sister Father's Brother Brother Normal [facility] Office Visiton 12-18-2023 Follow-up visit [id number] Delicia Serrano 1980 Provider Department Center 12/18/2023 54915-FJZNVZPERLITA SANFORD KIRK Finnegan Family History Problem Relation Age [...] Father's Sister Father's Brother Brother Level of Service:57600 [place] OFFICE/OUTPATIENT NEW MODERATE MDM 45 MINUTES Reason for Visit and Comments: New Patient [632] - 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 Normal [facility] Follow-Upon 12-15-2023 Follow-Up [id number] Delicia Serrano 1980 Provider Department Center 12/15/2023 86835-NIOLTYVETTE ROBLERO PAIN Medical Pavi Family History Problem Relation [...] Father's Sister Father's Brother Brother Level of Service:09744 [place] OFFICE/OUTPATIENT ESTABLISHED LOW MDM 20 MIN Reason for Visit and Comments: Follow-up [920222] - Lt SIJ [facility] 3612-09-2023 36 Last Visit: 09/21/23 Upcoming Visit: 12/21/23 Last CBC/CMP: 09/21/23 [facility] Refillon 12-08-2023 Refill [id number] Delicia Serrano 1980 F Date Provider Department [...] Reason for Visit and Comments: Med Refill [[id number]] [facility] 3611-11-2023 36 Last Visit: 09/21/23 Upcoming Visit: 12/21/23 [facility] Refillon 11-11-2023 Refill [id number] Delicia Serrano 1980 Date Provider Department Center 11/11/2023 Jovon-JARED ECHEVARRIA RHC RHEUM [facility] Family History Problem [...] Reason for Visit and Comments: Med Refill [[id number]] [facility] Refillon 11-10-2023 Refill [id number] Delicia Serrano 1980 F Date Provider Department Center 11/10/2023 ESTRELLITA LINTON PAIN Medical Pavi Family History Problem Relation [...] Reason for Visit and Comments: Med Refill [[id number]] [facility] ANEItz 10-27-2023 ANES ------ -- Attestation signed [...] lumbosacral region 03/30/2023 Lumbar spondylosis 03/30/2023 Other intermediate (current) drug therapy 03/23/2023 Seronegative arthritis 02/02/2023 [...] GI Symptoms Pioglitazone Other reaction(s): stomach upset 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 [facility] HPon 10-27-2023 HP H&P reviewed. The esme rodgers was examined and there are no changes to the H&P. [facility] NURSNOTEon 10-27-2023 NURSNOTE Interventional Pain Management Nursing [...] or concerns. Patient reminded of next appointment. [facility] Follow-Upon 09-30-2023 Follow-Up [id number] Delicia Serrano 1980 F Date Provider Department Center 09/30/2023 170-ESTRELLITA DE PAZ MP PAIN Medical Pavi [...] Father's Sister Father's Brother Brother Level of Service:85695 [place] OFFICE/OUTPATIENT ESTABLISHED LOW MDM 20 MIN Reason for Visit and Comments: Follow-up [591965] - LEFT SIJ INJECTION - 0% pain relief Normal [facility] CBC WITH AUTO DIFFERENTIALon 09-21-2023 Basophils (Bld) [#/Vol] 0.04 10*3/uL Normal 0.00-0.20 [facility] Comment on above: Performed By: #### L [id number] ####[facility] (BEAKER)[address] [place] [address] Basophils/100 WBC (Bld) 0.4 % Normal 0.0-1.0 [facility] Comment on above: Performed By: #### L [id number] ####[facility] (BEAKER)[address] [place] [address] Eosinophils (Bld) [#/Vol] 0.11 10*3/uL Normal 0.00-0.50 [facility] Comment on above: Performed By: #### L [id number] ####[facility] (BEAKER)[address] [place] [address] Eosinophils/100 WBC (Bld) 1.2 % Normal 0.0-6.0 [facility] Comment on above: Performed By: #### L [id number] ####[facility] (BEAKER)[address] [place] [address] Erythrocyte distribution width (RBC) [Ratio] 13.5 % Normal 11.5-15.0 [facility] Comment on above: Performed By: #### L [id number] ####[facility] (BEAKER)[address] [place] [address] ERYTHROCYTE MEAN CORPUSCULAR HEMOGLOBIN CONCENTRATION (G/DL) BY AUTOMATED 34.3 g/dL Normal 32.0-35.0 [facility] Comment on above: Performed By: #### L [id number] ####[facility] (BEAKER)[address] [place] [address] Hematocrit (Bld) [Volume fraction] 40.5 % Normal 36.0-48.0 [facility] Comment on above: Performed By: #### L [id number] ####[facility] (BEAKER)[address] [place] [address] Hemoglobin (Bld) [Mass/Vol] 13.9 g/dL Normal 12.0-15.0 [facility] Comment on above: Performed By: #### L [id number] ####[facility] (BEAKER)[address] [place] [address] Immature granulocytes (Bld) [#/Vol] 0.02 10*3/uL Normal 0.00-0.20 [facility] Comment on above: Performed By: #### L [id number] ####[facility] (BEAKER)[address] [place] [address] Immature granulocytes/100 WBC (Bld) 0.2 % Normal 0.0-1.0 [facility] Comment on above: Performed By: #### L [id number] ####[facility] (BEAKER)[address] [place] [address] Lymphocytes (Bld) [#/Vol] 3.01 10*3/uL Normal 1.20-4.00 [facility] Comment on above: Performed By: #### L [id number] ####[facility] (BEAKER)[address] [place] [address] Lymphocytes/100 WBC (Bld) 31.7 % Normal 20.0-45.0 [facility] Comment on above: Performed By: #### L [id number] ####[facility] (BEAKER)[address] [place] [address] MCH (RBC) [Entitic mass] 30.6 pg Normal 27.0-33.0 [facility] Comment on above: Performed By: #### L [id number] ####[facility] (BEAKER)[address] [place] [address] MCV (RBC) [Entitic vol] 89.2 fL Normal 82.0-98.0 [facility] Comment on above: Performed By: #### L [id number] ####[facility] (BEAKER)[address] [place] [address] Monocytes (Bld) [#/Vol] 0.36 10*3/uL Normal 0.10-1.00 [facility] Comment on above: Performed By: #### L [id number] ####[facility] (BEAKER)[address] [place] [address] Monocytes/100 WBC (Bld) 3.8 % Low 5.0-12.0 [facility] Comment on above: Performed By: #### L [id number] ####[facility] (BEAKER)[address] [place] [address] Neutrophils (Bld) [#/Vol] 5.95 10*3/uL Normal 1.60-7.60 [facility] Comment on above: Performed By: #### L [id number] ####[facility] (BEAKER)[address] [place] [address] Neutrophils/100 WBC (Bld) 62.7 % Normal 40.0-72.0 [facility] Comment on above: Performed By: #### L [id number] ####[facility] (BEAKER)[address] [place] [address] NRBC (PER 100 WBCS) BY AUTOMATED COUNT 0.0 % Normal 0 [facility] Comment on above: Performed By: #### L [id number] ####[facility] (BEAKER)[address] [place] [address] PLATELETS (10*3/UL) IN BLOOD AUTOMATED COUNT 313 10*3/uL Normal 150-400 [facility] Comment on above: Performed By: #### L [id number] ####[facility] (BEAKER)[address] [place] [address] RBC (Bld) [#/Vol] 4.54 10*6/uL Normal 3.80-5.00 [facility] Comment on above: Performed By: #### L [id number] ####[facility] (BEAKER)[address] [place] [address] WBC (Bld) [#/Vol] 9.49 10*3/uL Normal 4.00-10.60 [facility] Comment on above: Performed By: #### L [id number] ####[facility] ([facility])[address] [place] [address] COMPREHENSIVE METABOLIC PANE Raimundo 09-21-2023 Albumin [Mass/Vol] 4.5 g/dL Normal 3.5-5.7 [facility] Comment on above: Performed By: #### L [id number] #### [facility] ([facility]) [address] [place] [address] ALP [Catalytic activity/Vol] 59 U/L Normal 34-104 [facility] Comment on above: Performed By: #### L [id number] #### [facility] ([facility]) [address] [place] [address] ALT [Catalytic activity/Vol] 21 U/L Normal 7-52 [facility] Comment on above: Performed By: #### L [id number] #### [facility] ([facility]) [address] [place] [address] Anion gap [Moles/Vol] 12 mmol/L Normal 7-20 [facility] Comment on above: Performed By: #### L [id number] #### [facility] ([facility]) [address] [place] [address] AST [Catalytic activity/Vol] 17 U/L Normal 13-39 [facility] Comment on above: Performed By: #### L [id number] #### [facility] ([facility]) [address] [place] [address] Bilirubin [Mass/Vol] 0.5 mg/dL Normal 0.3-1.0 [facility] Comment on above: Performed By: #### L [id number] #### [facility] ([facility]) [address] [place] [address] Calcium [Mass/Vol] 9.1 mg/dL Normal 8.6-10.3 [facility] Comment on above: Performed By: #### L [id number] #### [facility] ([facility]) [address] [place] [address] Chloride [Moles/Vol] 108 mmol/L High 98-107 [facility] Comment on above: Performed By: #### L [id number] #### [facility] ([facility]) [address] [place] [address] CO2 [Moles/Vol] 23 mmol/L Normal 21-31 [facility] Comment on above: Performed By: #### L [id number] #### [facility] ([facility]) [address] [place] [address] Creatinine [Mass/Vol] 1.16 mg/dL Normal 0.60-1.20 [facility] Comment on above: Performed By: #### L [id number] #### [facility] ([facility]) [address] [place] [address] GLOMERULAR FILTRATION RATE ML/MIN/1.73 SQ M.PREDICTED 60.4 mL/min/1.73m*2 Normal >60.0 [facility] Comment on above: Result Comment: [facility]???s estimated glomerular filtration rate (eGFR) will [...] individuals. Performed By: #### L [id number] #### [facility] ([facility]) [address] [place] [address] Glucose [Mass/Vol] 90 mg/dL Normal 70-100 [facility] Comment on above: Performed By: #### L [id number] #### [facility] ([facility]) [address] [place] [address] Potassium [Moles/Vol] 3.9 mmol/L Normal 3.5-5.1 [facility] Comment on above: Performed By: #### L [id number] #### [facility] ([facility]) [address] [place] [address] Protein [Mass/Vol] 7.1 g/dL Normal 6.0-8.3 [facility] Comment on above: Performed By: #### L [id number] #### [facility] ([facility]) [address] [place] [address] Sodium [Moles/Vol] 139 mmol/L Normal 136-145 [facility] Comment on above: Performed By: #### L [id number] #### [facility] ([facility]) [address] [place] [address] Urea nitrogen [Mass/Vol] 13 mg/dL Normal 7-25 [facility] Comment on above: Performed By: #### L [id number] #### [facility] ([facility]) [address] [place] [address] UREA NITROGEN/CREATININE (MASS RATIO) IN SER/PLAS 11.2 Normal [facility] Comment on above: Performed By: #### L [id number] #### [facility] ([facility]) [address] [place] [address] Follow-Upon 09-21-2023 Follow-Up [id number] Delicia Serrano 1980 F Date Provider Department Center 09/21/2023 3554-CHRISTIANNE DA SILVA [facility] R[facility]UM [facility] Family History Problem Relation [...] Father's Sister Father's Brother Brother Level of Service:56401 [place] OFFICE/OUTPATIENT ESTABLISHED MOD MDM 30 MIN (GC) Reason for Visit and Comments: Arthritis [[id number]] - 3 month follow up Normal [facility] HEMOGLOBIN A1Con 09-21-2023 Glucose [Mass/Vol] 105 mg/dL Normal [facility] Comment on above: Performed By: #### L [id number] ####[facility] (BEAKER)[address] [place] [address] HbA1c (Bld) [Mass fraction] 5.3 % Normal 4.0-6.0 [facility] Comment on above: Performed By: #### L [id number] ####[facility] (BEAKER)[address] [place] [address] Labon 09-21-2023 Lab [id number] Delicia Serrano 1980 Provider Department Center 09/21/[address] [place] [address] MP LAB RESOURCE MP DRAW Medical Pavi [...] Daughter Father's Sister Father's Brother Brother Normal [facility] 36on 08-13-2023 36 Last visit 06/30/23 Upcoming visit 09/21/23 Last cbc/cmp 06/30/23 Normal [facility] Abstracton 08-13-2023 Abstract [id number] Delicia Serrano 1980 Date Provider Department Center 08/13/2023 SYLVIA BRAR [facility] RHE[facility] Family [...] Son Daughter Father's Sister Father's Brother Brother [facility] Refillon 08-13-2023 Refill [id number] Delicia Serrano 1980 F Date Provider Department Center 08/13/2023 SYLVIA BRAR C RHEUM [facility] Family History Problem [...] Reason for Visit and Comments: Med Refill [[id number]] [facility] ANEItz 08-06-2023 ANES ------ -- Attestation signed [...] GI Symptoms Pioglitazone Other reaction(s): stomach upset 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 OneTouch Delica Plus Lancet 33 gauge muscogee OneTouch Ultra2 Meter muscogee See administration instructions. phentermine (Adipex-P) 37.5 mg [...] Rhythm: re (more content not included)... Normal [facility] HPon 08-06-2023 HP H&P reviewed. The esme rodgers was examined and there are no changes to the H&P. Continues to have low back pain Normal [facility] NURSNOTEon 08-06-2023 NURSNOTE Interventional Pain Management Nursing Note / Nurse Post-Call S/P Left SIJ VM left with RTC reminder 08/07/23 1045 Follow Up (Summarize discussion in comments) Patient given contact information for surgery department and physician Yes Normal [facility] Prep for Procedureon 024 Prep for Procedure [id number] Delicia Serrano 1980 F Date Provider Department Center 07/29/2023 CARLOS ROWE MP [facility] Medical [facility] Family History Problem Relation Age of Onset [...] Daughter Father's Sister Father's Brother Brother Normal [facility] Follow-Upon 07-09-2023 Follow-Up [id number] Delicia Serrano Moshe 1980 F Date Provider Department Center 07/09/2023 170-ESTRELLITA DE PAZ PAIN Medical [facility] Family History Problem Relation [...] Father's Sister Father's Brother Brother Level of Service:66802 [place] OFFICE/OUTPATIENT ESTABLISHED LOW MDM 20 MIN Reason for Visit and Comments: Back Pain [12] - ИВАН RFA L4/5 L5/S1 - 85%improvement Hip Pain [[id number]] - Left hip pain Normal [facility] COMPREHENSIVE METABOLIC PANE Raimundo 06-30-2023 Albumin [Mass/Vol] 4.5 g/dL Normal 3.5-5.7 [facility] Comment on above: Performed By: #### L [id number] #### [facility] (BEAKER) [address] [place] [address] ALP [Catalytic activity/Vol] 85 U/L Normal 34-104 [facility] Comment on above: Performed By: #### L [id number] #### [facility] (BEAKER) [address] [place] [address] ALT [Catalytic activity/Vol] 19 U/L Normal 7-52 [facility] Comment on above: Performed By: #### L [id number] #### [facility] (BEAKER) [address] [place] [address] Anion gap [Moles/Vol] 11 mmol/L Normal 7-20 [facility] Comment on above: Performed By: #### L [id number] #### [facility] (BEAKER) [address] [place] [address] AST [Catalytic activity/Vol] 18 U/L Normal 13-39 [facility] Comment on above: Performed By: #### L [id number] #### [facility] (BEAKER) [address] [place] [address] Bilirubin [Mass/Vol] 0.5 mg/dL Normal 0.3-1.0 [facility] Comment on above: Performed By: #### L [id number] #### [facility] [address] [place] [address] Calcium [Mass/Vol] 9.6 mg/dL Normal 8.6-10.3 [facility] Comment on above: Performed By: #### L [id number] #### [facility] [address] [place] [address] Chloride [Moles/Vol] 104 mmol/L Normal 98-107 [facility] Comment on above: Performed By: #### L [id number] #### [facility] (BEAKER) [address] [place] [address] CO2 [Moles/Vol] 26 mmol/L Normal 21-31 [facility] Comment on above: Performed By: #### L [id number] #### [facility] (BEAKER) [address] [place] [address] Creatinine [Mass/Vol] 0.97 mg/dL Normal 0.60-1.20 [facility] Comment on above: Performed By: #### L [id number] #### [facility] (BEAKER) [address] [place] [address] GLOMERULAR FILTRATION RATE ML/MIN/1.73 SQ M.PREDICTED 74.8 mL/min/1.73m*2 Normal >60.0 [facility] Comment on above: Result Comment: [facility]???s estimated glomerular filtration rate (eGFR) will [...] individuals. Performed By: #### L [id number] #### [facility] ([facility]) [address] [place] [address] Glucose [Mass/Vol] 93 mg/dL Normal 70-100 [facility] Comment on above: Performed By: #### L [id number] #### [facility] ([facility]) [address] [place] [address] Potassium [Moles/Vol] 3.9 mmol/L Normal 3.5-5.1 [facility] Comment on above: Performed By: #### L [id number] #### [facility] ([facility]) [address] [place] [address] Protein [Mass/Vol] 7.0 g/dL Normal 6.0-8.3 [facility] Comment on above: Performed By: #### L [id number] #### [facility] ([facility]) [address] [place] [address] Sodium [Moles/Vol] 137 mmol/L Normal 136-145 [facility] Comment on above: Performed By: #### L [id number] #### [facility] ([facility]) [address] [place] [address] Urea nitrogen [Mass/Vol] 17 mg/dL Normal 7-25 [facility] Comment on above: Performed By: #### L [id number] #### [facility] ([facility]) [address] [place] [address] UREA NITROGEN/CREATININE (MASS RATIO) IN SER/PLAS 17.5 Normal [facility] Comment on above: Performed By: #### L [id number] #### [facility] ([facility]) [address] [place] [address] Follow-Upon 06-30-2023 Follow-Up [id number] Delicia Serrano 1980 F Date Provider Department Center 06/30/2023 3554-CHRISTIANNE DA SILVA [facility] [...] Father's Sister Father's Brother Brother Level of Service:41475 [place] OFFICE/OUTPATIENT ESTABLISHED MOD MDM 30 MIN (GC) Reason for Visit and Comments: Follow-up [[id number]] Normal [facility] HEMOGLOBIN A1Con 06-30-2023 Glucose [Mass/Vol] 88 mg/dL Normal [facility] Comment on above: Performed By: #### L [id number] #### [facility] (BEAKER) [address] [place] [address] HbA1c (Bld) [Mass fraction] 4.7 % Normal 4.0-6.0 [facility] Comment on above: Performed By: #### L [id number] #### [facility] (BEAKER) [address] [place] [address] Labon 06-30-2023 Lab [id number] Delicia Serrano 1980 F Date Provider Department Center 06/30/[address] [place] [address] MP LAB RESOURCE MP DRAW Medical Pavi [...] Daughter Father's Sister Father's Brother Brother Normal [facility] URINALYSISon 06-30-2023 BILIRUBIN, TOTAL PRESENCE IN URINE Negative Normal Negative [facility] Comment on above: Order Comment: Micro scopics not performed on urines with negative chemical reactions unless requested on original order. Performed By: #### L [id number] #### [facility] (BEAKER) [address] [place] [address] Clarity (U) Clear Normal Clear [facility] Comment on above: Order Comment: Micro scopics not performed on urines with negative chemical reactions unless requested on original order. Performed By: #### L [id number] #### [facility] (BEAKER) [address] [place] [address] Color (U) Straw Abnormal Yellow [facility] Comment on above: Order Comment: Micro scopics not performed on urines with negative chemical reactions unless requested on original order. Performed By: #### L [id number] #### [facility] (BEAKER) [address] [place] [address] Glucose (U) [Mass/Vol] Negative Normal [facility] Comment on above: Order Comment: Micro scopics not performed on urines with negative chemical reactions unless requested on original order. Performed By: #### L [id number] #### [facility] (BEAKER) [address] [place] [address] HEMOGLOBIN PRESENCE IN URINE Negative Normal Negative [facility] Comment on above: Order Comment: Micro scopics not performed on urines with negative chemical reactions unless requested on original order. Performed By: #### L [id number] #### [facility] ([facility]) [address] [place] [address] Ketones Ql (U) Negative Normal Negative [facility] Comment on above: Order Comment: Micro scopics not performed on urines with negative chemical reactions unless requested on original order. Performed By: #### L [id number] #### [facility] ([facility]) [address] [place] [address] LEUKOCYTE ESTERASE PRESENCE IN URINE BY TEST STRIP Negative Normal Negative [facility] Comment on above: Order Comment: Micro scopics not performed on urines with negative chemical reactions unless requested on original order. Performed By: #### L [id number] #### [facility] ([facility]) [address] [place] [address] NITRITE PRESENCE IN URINE Negative Normal Negative [facility] Comment on above: Order Comment: Micro scopics not performed on urines with negative chemical reactions unless requested on original order. Performed By: #### L [id number] #### [facility] ([facility]) [address] [place] [address] pH (U) 5.0 [pH] Normal 5.0-8.0 [facility] Comment on above: Order Comment: Micro scopics not performed on urines with negative chemical reactions unless requested on original order. Performed By: #### L [id number] #### [facility] ([facility]) [address] [place] [address] Protein (U) [Mass/Vol] Negative Normal [facility] Comment on above: Order Comment: Micro scopics not performed on urines with negative chemical reactions unless requested on original order. Performed By: #### L [id number] #### [facility] ([facility]) [address] [place] [address] Specific gravity (U) [Rel density] 1.006 Low 1.015-1.020 [facility] Comment on above: Order Comment: Micro scopics not performed on urines with negative chemical reactions unless requested on original order. 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 [facility] NURSNOTEon 06-09-2023 NURSNOTE Interventional Pain Management Nursing [...] for surgery department and physician Yes Normal [facility] Prep for Procedureon 024 Prep for Procedure [id number] Delicia Serrano 1980 F Date Provider Department Center 06/09/2023 CARLOS ROWE [facility] Family History Problem Relation Age of Onset [...] Daughter Father's Sister Father's Brother Brother Normal [facility] Orders Onlyon 06-05-2023 Orders Only [id number] Delicia Serrano 1980 Provider Department Center 06/05/2023 CHRISTIANNE LIPSCOMB [facility] [...] Daughter Father's Sister Father's Brother Brother Normal [facility] Prep for Procedureon 024 Prep for Procedure [id number] Delicia Serrano 1980 F Date Provider Department Center 06/03/2023 CARLOS ROWE MP [facility] Medical [facility] Family History Problem Relation Age [...] Daughter Father's Sister Father's Brother Brother Normal [facility] BASIC METABOLIC PANELon 05-14 Anion gap [Moles/Vol] 11 mmol/L Normal 7-20 [facility] Comment on above: Performed By: #### L [id number] #### [facility] ([facility]) [address] [place] [address] Calcium [Mass/Vol] 8.2 mg/dL Low 8.6-10.3 [facility] Comment on above: Performed By: #### L [id number] #### [facility] ([facility]) [address] [place] [address] Chloride [Moles/Vol] 110 mmol/L High 98-107 [facility] Comment on above: Performed By: #### L [id number] #### [facility] ([facility]) [address] [place] [address] CO2 [Moles/Vol] 23 mmol/L Normal 21-31 [facility] Comment on above: Performed By: #### L [id number] #### [facility] ([facility]) [address] [place] [address] Creatinine [Mass/Vol] 0.91 mg/dL Normal 0.60-1.20 [facility] Comment on above: Performed By: #### L [id number] #### [facility] ([facility]) [address] [place] [address] GLOMERULAR FILTRATION RATE ML/MIN/1.73 SQ M.PREDICTED 80.8 mL/min/1.73m*2 Normal >60.0 [facility] Comment on above: Result Comment: [facility]???s estimated glomerular filtration rate (eGFR) will [...] individuals. Performed By: #### L [id number] #### [facility] ([facility]) [address] [place] [address] Glucose [Mass/Vol] 127 mg/dL High 70-100 [facility] Comment on above: Performed By: #### L [id number] #### [facility] ([facility]) [address] [place] [address] Potassium [Moles/Vol] 3.5 mmol/L Normal 3.5-5.1 [facility] Comment on above: Performed By: #### L [id number] #### [facility] ([facility]) [address] [place] [address] Sodium [Moles/Vol] 140 mmol/L Normal 136-145 [facility] Comment on above: Performed By: #### L [id number] #### [facility] ([facility]) [address] [place] [address] Urea nitrogen [Mass/Vol] 18 mg/dL Normal 7-25 [facility] Comment on above: Performed By: #### L [id number] #### [facility] ([facility]) [address] [place] [address] UREA NITROGEN/CREATININE (MASS RATIO) IN SER/PLAS 19.8 Normal [facility] Comment on above: Performed By: #### L [id number] #### [facility] ([facility]) [address] [place] [address] BLOOD CULTUREon 06-02-2023 Bacteria identified Cx Nom (Bld) No growth at 5 days Normal [facility] Comment on above: Performed By: #### L [id number] ####[facility] ([facility])[address] [place] [address] C3 COMPLEMENTon 06-02-2023 Magnesium [Mass/Vol] 142.00 mg/dL Normal 79.00-1 52.0 0 [facility] Comment on above: Performed By: #### L [id number] ####[facility] ([facility])[address] [place] [address] C4 COMPLEMENTon 06-02-2023 Magnesium [Mass/Vol] 38.9 mg/dL High 16-38 [facility] Comment on above: Performed By: #### L [id number] #### [facility] ([facility]) [address] [place] [address] Follow-Upon 06-02-2023 Follow-Up [id number] Delicia Serrano 1980 F Date Provider Department Center 06/02/2023 Sabrina4CHRISTIANNE SABILLON [facility] Family History Problem Relation [...] Father's Sister Father's Brother Brother Level of Service:60074 [place] OFFICE/OUTPATIENT ESTABLISHED MOD MDM 30 MIN Reason for Visit and Comments: Follow-up [538512] - generalized pain; 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 Normal [facility] Labon 06-02-2023 Lab [id number] Delicia Serrano 1980 F Date Provider Department Center 06/02/2023 [facility] RESOURCE MP DRAW Medical Pavi [...] Daughter Father's Sister Father's Brother Brother Normal [facility] URINALYSISon 06-02-2023 BILIRUBIN, TOTAL PRESENCE IN URINE Negative Normal Negative [facility] Comment on above: Performed By: #### L [id number] #### [facility] ([facility]ER) [address] [place] [address] Clarity (U) Slightly Cloudy Abnormal Clear [facility] Comment on above: Performed By: #### L [id number] #### [facility] ([facility]) [address] [place] [address] Color (U) Dinora Abnormal Yellow [facility] Comment on above: Performed By: #### L [id number] #### [facility] (BEAKER) [address] [place] [address] Glucose (U) [Mass/Vol] Negative Normal Negative [facility] Comment on above: Performed By: #### L [id number] #### [facility] ([facility]) [address] [place] [address] HEMOGLOBIN PRESENCE IN URINE Negative Normal Negative [facility] Comment on above: Performed By: #### L [id number] #### [facility] ([facility]) [address] [place] [address] Ketones Ql (U) Negative Normal Negative [facility] Comment on above: Performed By: #### L [id number] #### [facility] ([facility]) [address] [place] [address] LEUKOCYTE ESTERASE PRESENCE IN URINE BY TEST STRIP Negative Normal Negative [facility] Comment on above: Performed By: #### L [id number] #### [facility] ([facility]) [address] [place] [address] NITRITE PRESENCE IN URINE Negative Normal Negative [facility] Comment on above: Performed By: #### L [id number] #### [facility] ([facility]) [address] [place] [address] pH (U) 5.0 [pH] Normal 5.0-8.0 [facility] Comment on above: Performed By: #### L [id number] #### [facility] ([facility]) [address] [place] [address] Protein (U) [Mass/Vol] 30 mg/dL Abnormal Negative Un [facility] Comment on above: Performed By: #### L [id number] #### [facility] ([facility]) [address] [place] [address] Specific gravity (U) [Rel density] 1.027 High 1.015-1.020 [facility] Comment on above: Performed By: #### L [id number] #### [facility] ([facility]) [address] [place] [address] URINALYSIS MICROSCOPICon CALCIUM OXALATE CRYSTALS (#/HPF) IN URINE Many Abnormal None Seen [facility] Comment on above: Performed By: #### L [id number] #### [facility] ([facility]) [address] [place] [address] CASTS IN URINE Normal [facility] Comment on above: Performed By: #### L [id number] #### [facility] [address] [place] [address] CRYSTALS IN URINE Present Abnormal None Seen [facility] Comment on above: Performed By: #### L [id number] #### [facility] ([facility]) [address] [place] [address] MUCUS (#/HPF) IN URINE SEDIMENT Few Normal None Seen, Occasional, Few [facility] Comment on above: Performed By: #### L [id number] #### [facility] ([facility]) [address] [place] [address] RBC (#/HPF) IN URINE SEDIMENT 3-5 Abnormal None Seen [facility] Comment on above: Performed By: #### L [id number] #### [facility] ([facility]) [address] [place] [address] SQUAMOUS EPITHELIAL CELLS (#/HPF) IN URINE SEDIMENT Many Abnormal None Seen, Occasional [facility] Comment on above: Performed By: #### L [id number] #### [facility] [address] [place] [address] WBC (LEUKOCYTE) (#/HPF) IN URINE SEDIMENT 3-5 Abnormal None Seen [facility] Comment on above: Performed By: #### L [id number] #### [facility] [address] [place] [address] URINE CULTURE, ROUTINEon Bacteria identified Cx Nom (U) GARDNERELLA VAGINALIS Abnormal [facility] Comment on above: Result Comment: 50,0 00 - 100,000 CFU/Ml Gardnerella vaginalis Presumptive Identification Performed By: #### L [id number] ####[facility] (BEAKER)[address] [place] [address] 36on 06-01-2023 36 PT calling stating t he following: generalized pain; 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 PT reports having cough since Thanksgiving and fever in the last 3 weeks since Lumbar puncture performed at [facility]. APPT offered for Thursday, 06/01. Scheduled to be evaluated. [facility] HPon 05-19-2023 History Of Present I llness Delicia Serrano [...] Arthritis Maternal Grandfather Dominick Cancer Maternal [facility] [place] Diabetes Maternal [place] Stroke Maternal Grand[place] Arthritis Maternal Grandmother Raydene Cancer Maternal Grandmother [...] Hospital Problems. bilateral RFA L4-L5, L5-S1. Normal [facility] HP History Of Present I llness [...] Cancer Maternal Grandfather Dominick Diabetes Maternal Grand[facility] [place] Stroke Maternal Grand[place] Arthritis Maternal Grandmother Raydene Cancer Maternal Grandmother [...] Staff Role Carlos Perkins MD Proceduralist Keith Boston RN Nurse Jane Ash, RN Nurse Yvette [...] Type: Acute pain (more content not included)... [facility] NURSNOTEon 05-19-2023 NURSNOTE Interventional Pain Management Nursing Note / Nurse Post-Call Note Narrative Pt stated she received 80% relief for 6hrs post MBB #2 L4/5,L5/S1. Will schedule RFA. [facility] 36on 05-12-2023 36 Last visit 03/23/23 Upcoming visit 06/23/23 Last cbc/cmp 04/21/23 [facility] Refillon 05-12-2023 Refill [id number] Delicia Serrano 1980 F Date Provider Department Center 05/12/2023 SYLVIA BRAR [facility] Family History Problem Relation [...] Reason for Visit and Comments: Med Refill [108133] Normal [facility] Prep for Procedureon 024 Prep for Procedure [id number] Delicia Serrano 1980 F Date Provider Department Center 05/11/2023 KEITH VARELA MP [facility] Medical [facility] Family History Problem Relation Age of Onset [...] Daughter Father's Sister Father's Brother Brother Normal [facility] CBC WITH AUTO DIFFERENTIALon 04-21-2023 Basophils (Bld) [#/Vol] 0.05 10*3/uL Normal 0.00-0.20 [facility] Comment on above: Performed By: #### L [id number] #### [facility] (BEAKER) [address] [place] [address] Basophils/100 WBC (Bld) 0.5 % Normal 0.0-1.0 [facility] Comment on above: Performed By: #### L [id number] #### [facility] (BEAKER) [address] [place] [address] Eosinophils (Bld) [#/Vol] 0.16 10*3/uL Normal 0.00-0.50 [facility] Comment on above: Performed By: #### L [id number] #### [facility] [address] [place] [address] Eosinophils/100 WBC (Bld) 1.7 % Normal 0.0-6.0 [facility] Comment on above: Performed By: #### L [id number] #### [facility] ([facility]) [address] [place] [address] Erythrocyte distribution width (RBC) [Ratio] 15.5 % High 11.5-15.0 [facility] Comment on above: Performed By: #### L [id number] #### [facility] ([facility]) [address] [place] [address] ERYTHROCYTE MEAN CORPUSCULAR HEMOGLOBIN CONCENTRATION (G/DL) BY AUTOMATED 32.0 g/dL Normal 32.0-35.0 [facility] Comment on above: Performed By: #### L [id number] #### [facility] ([facility]) [address] [place] [address] Hematocrit (Bld) [Volume fraction] 41.2 % Normal 36.0-48.0 [facility] Comment on above: Performed By: #### L [id number] #### [facility] [address] [place] [address] Hemoglobin (Bld) [Mass/Vol] 13.2 g/dL Normal 12.0-15.0 [facility] Comment on above: Performed By: #### L [id number] #### [facility] ([facility]) [address] [place] [address] Immature granulocytes (Bld) [#/Vol] 0.04 10*3/uL Normal 0.00-0.20 [facility] Comment on above: Performed By: #### L [id number] #### [facility] (BEAKER) [address] [place] [address] Immature granulocytes/100 WBC (Bld) 0.4 % Normal 0.0-1.0 [facility] Comment on above: Performed By: #### L [id number] #### [facility] ([facility]) [address] [place] [address] Lymphocytes (Bld) [#/Vol] 2.02 10*3/uL Normal 1.20-4.00 [facility] Comment on above: Performed By: #### L [id number] #### [facility] ([facility]) [address] [place] [address] Lymphocytes/100 WBC (Bld) 22.1 % Normal 20.0-45.0 [facility] Comment on above: Performed By: #### L [id number] #### [facility] ([facility]) [address] [place] [address] MCH (RBC) [Entitic mass] 30.0 pg Normal 27.0-33.0 [facility] Comment on above: Performed By: #### L [id number] #### [facility] ([facility]) [address] [place] [address] MCV (RBC) [Entitic vol] 93.6 fL Normal 82.0-98.0 [facility] Comment on above: Performed By: #### L [id number] #### [facility] ([facility]) [address] [place] [address] Monocytes (Bld) [#/Vol] 0.36 10*3/uL Normal 0.10-1.00 [facility] Comment on above: Performed By: #### L [id number] #### [facility] ([facility]) [address] [place] [address] Monocytes/100 WBC (Bld) 3.9 % Low 5.0-12.0 [facility] Comment on above: Performed By: #### L [id number] #### [facility] ([facility]) [address] [place] [address] Neutrophils (Bld) [#/Vol] 6.52 10*3/uL Normal 1.60-7.60 [facility] Comment on above: Performed By: #### L [id number] #### [facility] [address] [place] [address] Neutrophils/100 WBC (Bld) 71.4 % Normal 40.0-72.0 [facility] Comment on above: Performed By: #### L [id number] #### [facility] ([facility]) [address] [place] [address] NRBC (PER 100 WBCS) BY AUTOMATED COUNT 0.0 % Normal 0 [facility] Comment on above: Performed By: #### L [id number] #### [facility] ([facility]) [address] [place] [address] PLATELETS (10*3/UL) IN BLOOD AUTOMATED COUNT 339 10*3/uL Normal 150-400 [facility] Comment on above: Performed By: #### L [id number] #### [facility] ([facility]) [address] [place] [address] RBC (Bld) [#/Vol] 4.40 10*6/uL Normal 3.80-5.00 [facility] Comment on above: Performed By: #### L [id number] #### [facility] ([facility]) [address] [place] [address] WBC (Bld) [#/Vol] 9.15 10*3/uL Normal 4.00-10.60 [facility] Comment on above: Performed By: #### L [id number] #### [facility] ([facility]) [address] [place] [address] COMPREHENSIVE METABOLIC PANE Raimundo 04-21-2023 Albumin [Mass/Vol] 4.6 g/dL Normal 3.5-5.7 [facility] Comment on above: Performed By: #### L [id number] #### [facility] [address] [place] [address] ALP [Catalytic activity/Vol] 73 U/L Normal 34-104 [facility] Comment on above: Performed By: #### L [id number] #### [facility] (BEAKER) [address] [place] [address] ALT [Catalytic activity/Vol] 20 U/L Normal 7-52 [facility] Comment on above: Performed By: #### L [id number] #### [facility] (BEAKER) [address] [place] [address] Anion gap [Moles/Vol] 11 mmol/L Normal 7-20 [facility] Comment on above: Performed By: #### L [id number] #### [facility] ([facility] [address] [place] [address] AST [Catalytic activity/Vol] 17 U/L Normal 13-39 [facility] Comment on above: Performed By: #### L [id number] #### [facility] ([facility] [address] [place] [address] Bilirubin [Mass/Vol] 0.3 mg/dL Normal 0.3-1.0 [facility] Comment on above: Performed By: #### L [id number] #### [facility] ([facility] [address] [place] [address] Calcium [Mass/Vol] 9.1 mg/dL Normal 8.6-10.3 [facility] Comment on above: Performed By: #### L [id number] #### [facility] (BEAKER) [address] [place] [address] Chloride [Moles/Vol] 105 mmol/L Normal 98-107 [facility] Comment on above: Performed By: #### L [id number] #### [facility] (BEAKER) [address] [place] [address] CO2 [Moles/Vol] 25 mmol/L Normal 21-31 [facility] Comment on above: Performed By: #### L [id number] #### [facility] (BEAKER) [address] [place] [address] Creatinine [Mass/Vol] 1.03 mg/dL Normal 0.60-1.20 [facility] Comment on above: Performed By: #### L [id number] #### [facility] ([facility]) [address] [place] [address] GLOMERULAR FILTRATION RATE ML/MIN/1.73 SQ M.PREDICTED 70.1 mL/min/1.73m*2 Normal >60.0 [facility] Comment on above: Result Comment: [facility]???s estimated glomerular filtration rate (eGFR) will [...] individuals. Performed By: #### L [id number] #### [facility] ([facility]) [address] [place] [address] Glucose [Mass/Vol] 108 mg/dL High 70-100 [facility] Comment on above: Performed By: #### L [id number] #### [facility] ([facility]) [address] [place] [address] Potassium [Moles/Vol] 3.4 mmol/L Low 3.5-5.1 [facility] Comment on above: Performed By: #### L [id number] #### [facility] ([facility]) [address] [place] [address] Protein [Mass/Vol] 7.1 g/dL Normal 6.0-8.3 [facility] Comment on above: Performed By: #### L [id number] #### [facility] ([facility]) [address] [place] [address] Sodium [Moles/Vol] 138 mmol/L Normal 136-145 [facility] Comment on above: Performed By: #### L [id number] #### [facility] [address] [place] [address] Urea nitrogen [Mass/Vol] 16 mg/dL Normal - [facility] Comment on above: Performed By: #### L [id number] #### [facility] ([facility]) [address] [place] [address] UREA NITROGEN/CREATININE (MASS RATIO) IN SER/PLAS 15.5 Normal [facility] Comment on above: Performed By: #### L [id number] #### [facility] (BEAKER) [address] [place] [address] HPon 04-21-2023 HP H&P reviewed. The pa ana maria was examined and there are no changes to the H&P. Patient continues to have back pain in her lumbar Normal [facility] Labon 04-21-2023 Lab [id number] Delicia Serrano 1980 F Date Provider Department Center 04/21/2023 [facility] LAB RESOURCE MP DRAW Medical Pavi [...] Daughter Father's Sister Father's Brother Brother Normal [facility] NURSNOTEon 04-21-2023 NURSNOTE Interventional Pain Management Nursing Note / Nurse Post-Call Note KATINA#1 completed 04/21 Narrative 04/22/23 1639 Physical Condition [...] instruction. Plan for MBB#2 on May 16 [facility] POCT GLUCOSE METER UNSOLICIT ED RESULTSon 04-21-2023 Glucose [Mass/Vol] 112 mg/dL High 70-105 [facility] Comment on above: Order Comment: Waive d Testing in the ED is performed under the ED CLIA certificate #[id number]. Result Comment: [facility] Performed By: #### L [id number] #### [facility] ([facility]) [address] [place] [address] Prep for Procedureon 024 Prep for Procedure [id number] Delicia Serrano E 1980 F Date Provider Department Center 04/20/2023 YVETTE CHOE MP ReClaims Family History Problem Relation Age of Onset [...] Daughter Father's Sister Father's Brother Brother Normal [facility] Prep for Procedureon 024 Prep for Procedure [id number] Jaquan Serranoanda E 1980 F Date Provider Department Center 04/15/2023 SHAMIR VALDEZ MP PROC Medical Pavi Family History Problem [...] Daughter Father's Sister Father's Brother Brother Normal [facility] Aerobic Cultureon 03-26-2023 Aerobic Culture CULTURE [...] No White Blood Cells Seen PERFORMED BY: [place] [address] PATHOLOGIST [employer] M.D. Normal The [facility] Comment on above: Performed By: #### A ERC, GS ####[address]#### CSFMBP ####[facility] , Cell Count Differential,CSFo n 03-26-2023 Appearance, CSF Clear Normal Clear [facility] Comment on above: Order Comment: Comme nt TUBE 1 Performed By: #### C SF GLU #2, CSF TP, CSFCCDIFF #2, CSFCCDIFF, CSF TP #2, CSF GLU #### [facility] [address] Color, CSF Colorless Normal Colorless [facility] Comment on above: Order Comment: Comme nt TUBE 1 Performed By: #### C SF GLU #2, CSF TP, CSFCCDIFF #2, CSFCCDIFF, CSF TP #2, CSF GLU #### [address] CSF Supernatant Color Colorless Normal Colorless [facility] Comment on above: Order Comment: Comme nt TUBE 1 Performed By: #### C SF GLU #2, CSF TP, CSFCCDIFF #2, CSFCCDIFF, CSF TP #2, CSF GLU #### [address] CSF Volume, Total 12.5 mL Normal [facility] Comment on above: Order Comment: Comme nt TUBE 1 Performed By: #### C SF GLU #2, CSF TP, CSFCCDIFF #2, CSFCCDIFF, CSF TP #2, CSF GLU #### [address] Lymphocytes, CSF 56 % Normal 40-80 [facility] Comment on above: Order Comment: Comme nt TUBE 1 Performed By: #### C SF GLU #2, CSF TP, CSFCCDIFF #2, CSFCCDIFF, CSF TP #2, CSF GLU #### [address] Monocytes, CSF 43 % Normal 15-45 [facility] Comment on above: Order Comment: Comme nt TUBE 1 Performed By: #### C SF GLU #2, CSF TP, CSFCCDIFF #2, CSFCCDIFF, CSF TP #2, CSF GLU #### [address] Neutrophils, CSF 1 % Normal 0-6 [facility] Comment on above: Order Comment: Comme nt TUBE 1 Performed By: #### C SF GLU #2, CSF TP, CSFCCDIFF #2, CSFCCDIFF, CSF TP #2, CSF GLU #### [address] RBC, CSF 11 /uL Normal [facility] Comment on above: Order Comment: Comme nt TUBE 1 Result Comment: The reference interval and other method performance specifications have not been established for this body fluid. The test result must be integrated into the clinical context for interpretation. Performed By: #### C SF GLU #2, CSF TP, CSFCCDIFF #2, CSFCCDIFF, CSF TP #2, CSF GLU #### [address] TNC, CSF 2 /uL Normal 0-5 [facility] Comment on above: Order Comment: Comme nt TUBE 1 Performed By: #### C SF GLU #2, CSF TP, CSFCCDIFF #2, CSFCCDIFF, CSF TP #2, CSF GLU #### [place] [address] [place] Total Count, CSF 100 Normal [facility] Comment on above: Order Comment: Comme nt TUBE 1 Performed By: #### C SF GLU #2, CSF TP, CSFCCDIFF #2, CSFCCDIFF, CSF TP #2, CSF GLU #### [address] Tube Number Tested, CSF Tube Number: 1 Normal [facility] Comment on above: Order Comment: Comme nt TUBE 1 Result Comment: PERF ORMED BY: [place] [address] PATHOLOGIST [employer] JUNIOR GREEN M.D. Performed By: #### C SF GLU #2, CSF TP, CSFCCDIFF #2, CSFCCDIFF, CSF TP #2, CSF GLU #### [place] [address] [place] Cell Count Differential,CSF #2on 03-26-2023 Appearance, CSF Clear Normal Clear [facility] Comment on above: Order Comment: Comme nt TUBE 3 Performed By: #### C SF GLU #2, CSF TP, CSFCCDIFF #2, CSFCCDIFF, CSF TP #2, CSF GLU #### [place] [address] [place] Color, CSF Colorless Normal Colorless [facility] Comment on above: Order Comment: Comme nt TUBE 3 Performed By: #### C SF GLU #2, CSF TP, CSFCCDIFF #2, CSFCCDIFF, CSF TP #2, CSF GLU #### [place] [address] [place] CSF Supernatant Color Colorless Normal Colorless [facility] Comment on above: Order Comment: Comme nt TUBE 3 Performed By: #### C SF GLU #2, CSF TP, CSFCCDIFF #2, CSFCCDIFF, CSF TP #2, CSF GLU #### [facility] [address] CSF Volume, Total 12.5 mL Normal [facility] Comment on above: Order Comment: Comme nt TUBE 3 Performed By: #### C SF GLU #2, CSF TP, CSFCCDIFF #2, CSFCCDIFF, CSF TP #2, CSF GLU #### [address] Lymphocytes, CSF 33 Normal [facility] Comment on above: Order Comment: Comme nt TUBE 3 Result Comment: The reference interval and other method performance specifications have not been established for this body fluid. The test result must be integrated into the clinical context for interpretation. Performed By: #### C SF GLU #2, CSF TP, CSFCCDIFF #2, CSFCCDIFF, CSF TP #2, CSF GLU #### [address] Monocytes, CSF 10 Normal [facility] Comment on above: Order Comment: Comme nt TUBE 3 Result Comment: The reference interval and other method performance specifications have not been established for this body fluid. The test result must be integrated into the clinical context for interpretation. Performed By: #### C SF GLU #2, CSF TP, CSFCCDIFF #2, CSFCCDIFF, CSF TP #2, CSF GLU #### [address] Neutrophils, CSF 0 Normal [facility] Comment on above: Order Comment: Comme nt TUBE 3 Result Comment: The reference interval and other method performance specifications have not been established for this body fluid. The test result must be integrated into the clinical context for interpretation. Performed By: #### C SF GLU #2, CSF TP, CSFCCDIFF #2, CSFCCDIFF, CSF TP #2, CSF GLU #### [address] RBC, CSF 0 /uL Normal [facility] Comment on above: Order Comment: Comme nt TUBE 3 Result Comment: The reference interval and other method performance specifications have not been established for this body fluid. The test result must be integrated into the clinical context for interpretation. Performed By: #### C SF GLU #2, CSF TP, CSFCCDIFF #2, CSFCCDIFF, CSF TP #2, CSF GLU #### [address] TNC, CSF 3 /uL Normal 0-5 [facility] Comment on above: Order Comment: Comme nt TUBE 3 Performed By: #### C SF GLU #2, CSF TP, CSFCCDIFF #2, CSFCCDIFF, CSF TP #2, CSF GLU #### [address] Tube Number Tested, CSF Tube Number: 3 Normal [facility] Comment on above: Order Comment: Comme nt TUBE 3 Result Comment: PERF ORMED BY: [place] [address] PATHOLOGIST [employer]EN M.D. Performed By: #### C SF GLU #2, CSF TP, CSFCCDIFF #2, CSFCCDIFF, CSF TP #2, CSF GLU #### [address] Glucose, CSF #2on 03-26-2023 Glucose, CSF #2 82 mg/dL High 40-70 [facility] Comment on above: Order Comment: Comme nt TUBE 3 Performed By: #### C SF GLU #2, CSF TP, CSFCCDIFF #2, CSFCCDIFF, CSF TP #2, CSF GLU ####[place] [address] [place] Glucose, Spinal Fluidon 03-16 Glucose, Spinal Fluid 80 mg/dL High 40-70 [facility] Comment on above: Order Comment: Comme nt TUBE 1 Performed By: #### C SF GLU #2, CSF TP, CSFCCDIFF #2, CSFCCDIFF, CSF TP #2, CSF GLU ####[address] [place] [address] [facility] Gram Stainon 03-26-2023 Microscopic observation Gram stain Nom (Unsp spec) CULTURE ADD ON PER DR. DILLARD Tube Number for CSF Microbiology: 2 Gram Stain Result No Bacteria Seen No White Blood Cells Seen PERFORMED BY: [place] [id number] PATHOLOGIST [employer] GREEN M.D. Normal [facility] Comment on above: Performed By: #### A ERC, GS ####[place] [address] [place] [address] [facility]#### CSFMBP ####[facility] , IR guided lumbar puncture LP on 03-26-2023 IR guided lumbar puncture LP [facility] Main [place] [address] [place] [address] Interventional Radiology Rpt Signed Patient: Delicia Serrano MR#: [id number] : 1980 Acct:[id number] Age/Sex: 42 / F ADM Date: 03/26/23 Loc: XD Room: Type: [facility] Attending Dr: Disha Dillard PA-C Copies [...] Felix Lawson M.D.03/26/2023 11:23 AM Dictation Location: [place] [address] Transcribed By: [facility] 03/26/231122 Dictated By: Felix Lawson II, MD 03/26/231120 Signed By: 03/26/231122 Normal [facility] Raimundo 03-26-2023 L ------ Specimen: [id number] Received: 03/26/23 Status: JORGE Melisa Num: [id number] Spec Type: Cytology Subm Dr: NON STAFF Tissues: A CSF (CSF) Procedures: Cyto Prepstain, DIFF QWIK, PAPSTN Age/ Patient Sex Location Account Attending Physician Delicia Serrano 42/F XD [id number] Disha Dillard PA-C SPEC NUM: [id number] RECD: 03/26/23 STATUS: JORGE ARREOLA NUM: [id number] KIMBERLY: 03/26/[address]: JUNIOR STAFF ENTERED: 03/26/[address]: SLIME TYPE: Cytology DEPT: [place]LE ENTERED BY: [id number] RECV BY: [id number] ORDERED: Cyto Prepstain, DIFF QWIK, PAPSTN ORDERED: [...] with Papanicolaou and Diff-Quik stains.(CC/nh) CPT Codes 57925 Specimen: [id number] Received: 03/26/23 Status: JORGE Arreola Num: [id number] Spec Type: Cytology Subm Dr: JUNIOR STAFF Tissues: A CSF (CSF) Procedures: Cyto Prepstain, DIFF QWIK, PAPSTN Patient: Delicia Serrano [id number] (Continued) Signed (signature on file) Danny Schulz MD 03/27/23 1324 Normal [facility] MYELIN BASIC PROTEIN, CSFon 03-26-2023 MYELIN BASIC PROTEIN, CSF Normal [facility] Comment on above: Order Comment: Comme nt TUBE 2 Result Comment: See report. Scanned copy available in EMR. PERFORMED BY: [facility] [address] [place] [address] PATHOLOGIST [employer] JUNIOR GREEN M.D. Performed By: #### JEANINE CORTES ####[facility] [address] [place] [id number] [facility]#### CSFMBP ####[facility] , Total Protein, CSF #2on 03-16 Total Protein, CSF #2 63 mg/dL High 15-45 [facility] Comment on above: Order Comment: Comme nt TUBE 3 Result Comment: PERF ORMED BY: [facility] [address] [place] [address] PATHOLOGIST [employer] JUN[employer] GREEN M.D. Performed By: #### C SF GLU #2, CSF TP, CSFCCDIFF #2, CSFCCDIFF, CSF TP #2, CSF GLU ####[place] [address] [place] [id number] [facility] Total Protein, Spinal Fluido n 03-26-2023 Total Protein, Spinal Fluid 71 mg/dL High 15-45 [facility] Comment on above: Order Comment: Comme nt TUBE 1 Result Comment: PERF ORMED BY: [facility] [address] [place] [id number] PATHOLOGIST [employer] J[employer] GREEN M.D. Performed By: #### C SF GLU #2, CSF TP, CSFCCDIFF #2, CSFCCDIFF, CSF TP #2, CSF GLU ####[place] [id number] [facility] Follow-Upon 03-24-2023 Follow-Up [id number] Delicia Serrano 1980 F Date Provider Department Center 03/24/2023 CARLOS ROWE MP PAIN Medical Pavi Family History Problem [...] Father's Sister Father's Brother Brother Level of Service:16596 [place] OFFICE/OUTPATIENT ESTABLISHED MOD MDM 30 MIN () Reason for Visit and Comments: Follow-up [583667] - C7-T1 INTERLAMINAR EPIDURAL STEROID INJECTION 60% pain relief Normal [facility] HPon 03-24-2023 Pain Medicine Medical [address] [address] Date: 03/24/23 Referral Source: No ref. provider [...] Pain with (more content not included)... Normal [facility] 37on 03-23-2023 37 - continue current d ose of methotrexate, increase folic acid to twice a day - increase mobic to twice daily if needed for sever pain - do labs ( cbc and CMP ) sometime before your next visit Normal [facility] Follow-Upon 03-23-2023 Follow-Up [id number] SerranoDelicia Moshe 1980 F Date Provider Department Center 03/23/2023 3554-CHRISTIANNE DA SILVA [facility] RHEUM [facility] [...] Father's Sister Father's Brother Brother Level of Service:50864 [place] OFFICE/OUTPATIENT ESTABLISHED MOD MDM 30 MIN Reason for Visit and Comments: Follow-up [614997] Normal [facility] Alanine aminotransferase [En zymatic activity/volume] in Serum or PlasmaOrdered By: Mariana Cortes on 02-11-2023 ALT [Catalytic activity/Vol] 16 U/L 7-52 [facility] Albumin [Mass/volume] in Ser um or PlasmaOrdered By: Mariana Cortes on 02-11-2023 Albumin [Mass/Vol] 3.6 g/dL 2.9-4.4 [facility] Albumin [Mass/volume] in Ser um or Plasma by Bromocresol green (BCG) dye binding methoOrdered By: Mariana Cortes on 02-11-2023 Albumin BCG dye [Mass/Vol] 4.2 g/dL 3.5-5.7 [facility] Alkaline phosphatase [Enzyma tic activity/volume] in Serum or PlasmaOrdered By: Mariana Cortes on 02-11-2023 ALP [Catalytic activity/Vol] 65 U/L 34-104 [facility] Aspartate aminotransferase [ Enzymatic activity/volume] in Serum or PlasmaOrdered By: erinn Cortes on 02-11-2023 AST [Catalytic activity/Vol] 15 U/L 13-39 [facility] Basophils Auto (Bld) [#/Vol] Ordered By: erinn Cortes on 02-11-2023 Basophils (Bld) [#/Vol] 0.1 10*3/uL 0.0-0.2 [facility] Basophils/100 WBC Auto (Bld) Ordered By: [facility] Sophia on 02-11-2023 Basophils/100 WBC (Bld) 0.8 % . [facility] Bilirubin.total [Mass/volume ] in Serum or PlasmaOrdered By: erinn Cortes on 02-11-2023 Bilirubin [Mass/Vol] 0.4 mg/dL 0.3-1.0 [facility] Calcium [Mass/volume] in Ser um or PlasmaOrdered By: erinn Cortes on 02-11-2023 Calcium [Mass/Vol] 8.9 mg/dL 8.6-10.3 [facility] Carbon dioxide, total [Moles /volume] in Serum or PlasmaOrdered By: erinn Nguyen on 02-11-2023 CO2 [Moles/Vol] 23.6 mmol/L 21.0-31.0 [facility] Chloride [Moles/volume] in S gopal or PlasmaOrdered By: erinn Cortes on 02-11-2023 Chloride [Moles/Vol] 109 mmol/L 98-107 [facility] Cholesterol [Mass/volume] in Serum or PlasmaOrdered By: Jenny Reis on 02-11-2023 Cholesterol [Mass/Vol] 177 mg/dL 140-200 [facility] Comment on above: Chol less than 200 m g/dl low riskChol 201-239 mg/dl borderline riskChol 240 mg/dl and greater high risk Cholesterol in LDL Calc [Mas s/Vol]Ordered By: Jenny Reis on 02-11-2023 Cholesterol in LDL [Mass/Vol] 103 mg/dL 0-100 [facility] Comment on above: LDL ATP III CLASSIFI CATIONLDL less than 100 mg/dL OptimalLDL 100-129 mg/dL Near or above optimalLDL 130-159 mg/dL Borderline highLDL 160-189 mg/dL HighLDL greater than 189 mg/dL Very high Cholesterol in VLDL Calc [Ma ss/Vol]Ordered By: Jenny Reis on 02-11-2023 Cholesterol in VLDL [Mass/Vol] 41 mg/dL [facility] Creatinine [Mass/volume] in Serum or PlasmaOrdered By: Mariana Cortes on 02-11-2023 Creatinine [Mass/Vol] 0.93 mg/dL 0.60-1.20 [facility] Eosinophils Auto (Bld) [#/Vo l]Ordered By: Mariana Cortes on 02-11-2023 Eosinophils (Bld) [#/Vol] 0.2 10*3/uL 0.0-0.45 [facility] Eosinophils/100 WBC Auto (Bl d)Ordered By: Mariana Cortes on 02-11-2023 Eosinophils/100 WBC (Bld) 1.8 % . [facility] Erythrocyte distribution wid th Auto (RBC) [Ratio]Ordered By: Mariana Cortes on 02-11-2023 Erythrocyte distribution width (RBC) [Ratio] 14.2 % 11.9-15.3 [facility] Ferritin [Mass/volume] in Se rum or PlasmaOrdered By: Mariana Cortes on 02-11-2023 Ferritin [Mass/Vol] 72.5 ng/mL 11.0-306.8 [facility] Folate [Mass/volume] in Seru m or PlasmaOrdered By: Mariana Cortes on 02-11-2023 Folate [Mass/Vol] 28.0 ng/mL >5.9 [facility] Comment on above: Folate reference ran ge: >5.9 ng/mlThe WHO technical consultation on folate and vitamin [id number] has determined that folate concentrations lessthan 4 ng/ml are considered deficient. Globulin Calc (S) [Mass/Vol] Ordered By: Mariana Cortes on 02-11-2023 Globulin (S) [Mass/Vol] 2.4 g/dL [facility] Glucose [Mass/volume] in Ser um or PlasmaOrdered By: Mariana Cortes on 02-11-2023 Glucose [Mass/Vol] 85 mg/dL 70-100 [facility] Comment on above: ADA recommended refe rence rangeRandom Glucose Reference Range is dependent on time and content of last meal. Glucose of more than 200 mg/dL in a nonstressed, ambulatory subject supports the diagnosis of Diabetes Mellitus. Glucose mean value [Mass/vol ume] in Blood Estimated from glycated hemoglobinOrdered By: Jenny Reis on 02-11-2023 Average glucose Estimated from glycated hemoglobin (Bld) [Mass/Vol] 128 mg/dL [facility] Hematocrit Auto (Bld) [Volum e fraction]Ordered By: Mariana Cortes on 02-11-2023 Hematocrit (Bld) [Volume fraction] 37.5 % 34.0-46.4 [facility] Hemoglobin A1c percentageOrd ered By: Jenny Reis on 02-11-2023 HbA1c (Bld) [Mass fraction] 6.1 % 4.3-5.6 [facility] Comment on above: Increased risk for d iabetes: 5.7 - 6.4diabetes: >6.4glycemic control for adults with diabetes: <7.0 Hemoglobin [Mass/volume] in BloodOrdered By: Mariana Cortes on 02-11-2023 Hemoglobin (Bld) [Mass/Vol] 12.6 g/dL 11.8-15.4 [facility] IgA [Mass/volume] in Serum o r PlasmaOrdered By: Mariana Cortes on 02-11-2023 IgA [Mass/Vol] 94 mg/dL 87-352 [facility] IgG [Mass/volume] in Serum o r PlasmaOrdered By: Mariana Cortes on 02-11-2023 IgG [Mass/Vol] 726 mg/dL 586-1602 [facility] IgM [Mass/volume] in Serum o r PlasmaOrdered By: Mariana Cortes on 02-11-2023 IgM [Mass/Vol] 117 mg/dL 26-217 [facility] Comment on above: Performed at: [facility] [id number] [place], [place] [id number] Director: Chato Rincon PhD, Phone: [phone] Immunoglobulin light chains. kappa.free [Mass/volume] in SerumOrdered By: Mariana Cortes on 02-11-2023 Immunoglobulin light chains.kappa.free (S) [Mass/Vol] 15.3 mg/L 3.3-19.4 [facility] Immunoglobulin light chains. kappa.free/Immunoglobulin light chains.lambda.free [MassOrdered By: Mariana Alatorre-Wendy on 02-11-2023 Immunoglobulin light chains.kappa.free/Immu noglobulin light chains.lambda.free (S) [Mass ratio] 1.35 0.26-1.65 [facility] Comment on above: Performed at: [facility] [id number] [place], [place] [id number] Director: Chato Rincon PhD, Phone: [phone] Immunoglobulin light chains. lambda.free [Mass/volume] in Serum or PlasmaOrdered By: Mariana Alatorre-Wendy on 02-11-2023 Immunoglobulin light chains.lambda.free [Mass/Vol] 11.3 mg/L 5.7-26.3 [facility] Iron [Mass/volume] in Serum or PlasmaOrdered By: Mariana Alatorre-Wendy on 02-11-2023 Iron [Mass/Vol] 69 ug/dL 50-212 [facility] Iron binding capacity [Mass/ volume] in Serum or PlasmaOrdered By: Mariana Alatorre-Martharatrey on 02-11-2023 Iron binding capacity [Mass/Vol] 335 ug/dL 255-450 [facility] Iron saturation [Mass Fracti on] in Serum or PlasmaOrdered By: Mariana Alatorre-Wendy on 02-11-2023 Iron saturation [Mass fraction] 20.6 % 20-50 [facility] Leukocytes [#/volume] correc [place] for nucleated erythrocytes in Blood by Automated counOrdered By: Mariana Alatorre-Maylex on 02-11-2023 WBC corrected for nucl RBC Auto (Bld) [#/Vol] 11.1 10*3/uL 3.8-11.6 [facility] Lymphocytes Auto (Bld) [#/Vo l]Ordered By: Mariana Cortes on 02-11-2023 Lymphocytes (Bld) [#/Vol] 3.3 10*3/uL 1.00-4.8 [facility] Lymphocytes/100 WBC Auto (Bl d)Ordered By: Mariana Cortes on 02-11-2023 Lymphocytes/100 WBC (Bld) 30.0 % . [facility] MCH Auto (RBC) [Entitic mass ]Ordered By: Mariana Cortes on 02-11-2023 MCH (RBC) [Entitic mass] 29.0 pg 24.7-34.3 [facility] MCHC Auto (RBC) [Mass/Vol]Or dered By: Mariana Cortes on 02-11-2023 MCHC (RBC) [Mass/Vol] 33.6 g/dL 32.0-35.0 [facility] MCV Auto (RBC) [Entitic vol] Ordered By: Mariana Cortes on 02-11-2023 MCV (RBC) [Entitic vol] 86.3 fL 80-100 [facility] Monocytes Auto (Bld) [#/Vol] Ordered By: Mariana Cortes on 02-11-2023 Monocytes (Bld) [#/Vol] 0.4 10*3/uL 0.0-0.8 [facility] Monocytes/100 WBC Auto (Bld) Ordered By: Mariana Cortes on 02-11-2023 Monocytes/100 WBC (Bld) 4.0 % . [facility] Neutrophils Auto (Bld) [#/Vo l]Ordered By: Mariana Cortes on 02-11-2023 Neutrophils (Bld) [#/Vol] 7.0 10*3/uL 1.8-7.7 [facility] Neutrophils/100 WBC Auto (Bl d)Ordered By: Mariana Cortes on 02-11-2023 Neutrophils/100 WBC (Bld) 63.4 % . [facility] No Panel InformationOrdered By: Mariana Cortes on 02-11-2023 Protein Electrophoresis M-Antwan Not observed g/dL Not Observed [facility] Protein Electrophoresis Note See comment . [facility] Comment on above: Protein electrophore sis scan will follow via computer,mail, or legal examiner delivery. Serum Immunofixation See comment . [facility] Comment on above: No monoclonality det ected. Estimated GFR (CKD-EPI) > 60.0 mL/Min [facility] Creatinine Clearance (Chem 91.82 [facility] Nucleated erythrocytes [Pres ence] in Blood by Automated countOrdered By: Mariana Cortes on 02-11-2023 Nucleated RBC Auto Ql (Bld) 0.1 /100{WBC} 0-0.5 [facility] Platelet mean volume Auto (B ld) [Entitic vol]Ordered By: Mariana Cortes on 02-11-2023 Platelet mean volume (Bld) [Entitic vol] 6.4 fL 6.3-10.7 [facility] Platelets Auto (Bld) [#/Vol] Ordered By: Mariana Cortes on 02-11-2023 Platelets (Bld) [#/Vol] 388 10*3/uL 150-450 [facility] Potassium [Moles/volume] in Serum or PlasmaOrdered By: Mariana Cortes on 02-11-2023 Potassium [Moles/Vol] 4.1 mmol/L 3.5-5.1 [facility] Protein [Mass/volume] in Ser um or PlasmaOrdered By: Mariana Cortes on 02-11-2023 Protein [Mass/Vol] 6.6 g/dL 6.0-8.5 [facility] Protein [Mass/Vol] 6.6 g/dL 6.4-8.9 [facility] RBC Auto (Bld) [#/Vol]Ordere d By: Mariana Cortes on 02-11-2023 RBC (Bld) [#/Vol] 4.35 10*6/uL 3.60-5.00 [facility] Serum globulin measurement ( mass/volume)Ordered By: Mariana Cortes on 02-11-2023 Globulin (S) [Mass/Vol] 3.0 g/dL 2.2-3.9 [facility] Serum or plasma albumin/glob ulin mass ratioOrdered By: Mariana Cortes on 02-11-2023 Albumin/Globulin [Mass ratio] 1.2 {ratio} 0.7-1.7 [facility] Albumin/Globulin [Mass ratio] 1.8 {ratio} [facility] Serum or plasma alpha 1 glob ulin measurement by electrophoresis (mass/volume)Ordered By: Mariana Cortes on 02-11-2023 Alpha 1 globulin Elph [Mass/Vol] 0.3 g/dL 0.0-0.4 [facility] Serum or plasma alpha 2 glob ulin measurement by electrophoresis (mass/volume)Ordered By: Mariana Cortes on 02-11-2023 Alpha 2 globulin Elph [Mass/Vol] 0.9 g/dL 0.4-1.0 [facility] Serum or plasma anion gap de terminationOrdered By: Mariana Cortes on 02-11-2023 Anion gap [Moles/Vol] 13.5 mmol/L 6.0-15.0 [facility] Serum or plasma beta globuli n measurement by electrophoresis (mass/volume)Ordered By: Mariana Cortes on 02-11-2023 Beta globulin Elph [Mass/Vol] 1.1 g/dL 0.7-1.3 [facility] Serum or plasma gamma globul in measurement by electrophoresis (mass/volume)Ordered By: Mariana Cortes on 02-11-2023 Gamma globulin Elph [Mass/Vol] 0.8 g/dL 0.4-1.8 [facility] Serum or plasma high density lipoprotein (HDL) cholesterol measurementOrdered By: Jenny Reis on 02-11-2023 Cholesterol in HDL [Mass/Vol] 33 mg/dL 23-92 [facility] Comment on above: HDL CHOL ATP-III CLA SSIFICATION Cardiovascular RiskHDL > or equal to 60 mg/dL LOWHDL < 40 mg/dL HIGH Serum or plasma total choles terol/high density lipoprotein (HDL) cholesterol mass ratOrdered By: Jenny Reis on 02-11-2023 Cholesterol.total/Chol esterol in HDL [Mass ratio] 5.4 {ratio} <5.0 [facility] Sodium [Moles/volume] in Ser um or PlasmaOrdered By: Mariana Cortes on 02-11-2023 Sodium [Moles/Vol] 142 mmol/L 136-145 [facility] [facility] Transferrin [Mass/volume] in Serum or PlasmaOrdered By: Mariana Cortes on 02-11-2023 Transferrin [Mass/Vol] 239 mg/dL 203-362 [facility] Triglyceride [Mass/volume] i n Serum or PlasmaOrdered By: Jenny Reis on 02-11-2023 Triglyceride [Mass/Vol] 207 mg/dL 0-149 [facility] Comment on above: TRIG ATP III CLASSIF ICATIONTRIG less than 150 mg/dL NormalTRIG 150-199 mg/dL Borderline highTRIG 200-500 mg/dL High TRIG greater than 500 mg/dL Very highStandard traceable to the Center for Disease Conrtrol and Prevention (CDC) test method. Urea nitrogen [Mass/volume] in Serum or PlasmaOrdered By: Mariana Cortes on 02-11-2023 Urea nitrogen [Mass/Vol] 21 mg/dL 10-07 [facility] Vitamin B12 ser/plasOrdered By: Mariana Cortes on 02-11-2023 Cobalamin (Vitamin B12) [Mass/Vol] 343 pg/mL 180-914 [facility] WBC Auto (Bld) [#/Vol]Ordere d By: Mariana Cortes on 02-11-2023 WBC (Bld) [#/Vol] 11.1 10*3/uL 3.8-11.6 [facility] Alanine aminotransferase [En zymatic activity/volume] in Serum or PlasmaOrdered By: Nicki Duran on 11-04-2022 ALT [Catalytic activity/Vol] 20 U/L [facility] Albumin [Mass/volume] in Ser um or PlasmaOrdered By: Nicki Duran on 11-04-2022 Albumin [Mass/Vol] 3.6 g/dL 2.9-4.4 [facility] Albumin [Mass/volume] in Ser um or Plasma by Bromocresol green (BCG) dye binding methoOrdered By: Nicki Duran on 11-04-2022 Albumin BCG dye [Mass/Vol] 4.3 g/dL 3.5-5.7 [facility] Alkaline phosphatase [Enzyma tic activity/volume] in Serum or PlasmaOrdered By: Nicki Duran on 11-04-2022 ALP [Catalytic activity/Vol] 94 U/L 34-104 [facility] Aspartate aminotransferase [ Enzymatic activity/volume] in Serum or PlasmaOrdered By: Nicki Duran on 11-04-2022 AST [Catalytic activity/Vol] 15 U/L 13-39 [facility] Basophils Auto (Bld) [#/Vol] Ordered By: Nicki Duran on 11-04-2022 Basophils (Bld) [#/Vol] 0.1 10*3/uL 0.0-0.2 [facility] Basophils/100 WBC Auto (Bld) Ordered By: Nicki Duran on 11-04-2022 Basophils/100 WBC (Bld) 0.7 % . [facility] Bilirubin.total [Mass/volume ] in Serum or PlasmaOrdered By: Nicki Duran on 11-04-2022 Bilirubin [Mass/Vol] 0.3 mg/dL 0.3-1.0 [facility] Calcium [Mass/volume] in Ser um or PlasmaOrdered By: Nicki Duran on 11-04-2022 Calcium [Mass/Vol] 8.9 mg/dL 8.6-10.3 [facility] Carbon dioxide, total [Moles /volume] in Serum or PlasmaOrdered By: Nicki Duran on 11-04-2022 CO2 [Moles/Vol] 23.8 mmol/L 21.0-31.0 [facility] Chloride [Moles/volume] in S gopal or PlasmaOrdered By: Nicki Duran on 11-04-2022 Chloride [Moles/Vol] 110 mmol/L 98-107 [facility] Creatinine [Mass/volume] in Serum or PlasmaOrdered By: Nicki Duran 11-04-2022 Creatinine [Mass/Vol] 0.98 mg/dL 0.60-1.20 [facility] Eosinophils Auto (Bld) [#/Vo l]Ordered By: Nicki Duran on 11-04-2022 Eosinophils (Bld) [#/Vol] 0.5 10*3/uL 0.0-0.45 [facility] Eosinophils/100 WBC Auto (Bl d)Ordered By: Nicki Duran on 11-04-2022 Eosinophils/100 WBC (Bld) 3.7 % . [facility] Erythrocyte distribution wid th Auto (RBC) [Ratio]Ordered By: Nicki Duran on 11-04-2022 Erythrocyte distribution width (RBC) [Ratio] 15.3 % 11.9-15.3 [facility] Ferritin [Mass/volume] in Se rum or PlasmaOrdered By: Nicki Duran on 11-04-2022 Ferritin [Mass/Vol] 25.8 ng/mL 11.0-306.8 [facility] Globulin Calc (S) [Mass/Vol] Ordered By: Nicki Duran on 11-04-2022 Globulin (S) [Mass/Vol] 2.4 g/dL [facility] Glucose [Mass/volume] in Ser um or PlasmaOrdered By: Nicki Duran on 11-04-2022 Glucose [Mass/Vol] 115 mg/dL 70-100 [facility] Comment on above: ADA recommended refe rence rangeRandom Glucose Reference Range is dependent on time and content of last meal. Glucose of more than 200 mg/dL in a nonstressed, ambulatory subject supports the diagnosis of Diabetes Mellitus. Hematocrit Auto (Bld) [Volum e fraction]Ordered By: Nicki Duran on 11-04-2022 Hematocrit (Bld) [Volume fraction] 40.8 % 34.0-46.4 [facility] Hemoglobin [Mass/volume] in BloodOrdered By: Nicki Duran 11-04-2022 Hemoglobin (Bld) [Mass/Vol] 13.5 g/dL 11.8-15.4 [facility] IgA [Mass/volume] in Serum o r PlasmaOrdered By: Nicki Duran on 11-04-2022 IgA [Mass/Vol] 92 mg/dL 87-352 [facility] IgG [Mass/volume] in Serum o r PlasmaOrdered By: Nicki Duran on 11-04-2022 IgG [Mass/Vol] 676 mg/dL 586-1602 [facility] IgM [Mass/volume] in Serum o r PlasmaOrdered By: Nicki Duran on 11-04-2022 IgM [Mass/Vol] 105 mg/dL 26-217 [facility] Immunoglobulin light chains. kappa.free [Mass/volume] in SerumOrdered By: Nicki Duran on 11-04-2022 Immunoglobulin light chains.kappa.free (S) [Mass/Vol] 15.9 mg/L 3.3-19.4 [facility] Immunoglobulin light chains. kappa.free/Immunoglobulin light chains.lambda.free [MassOrdered By: Nicki Duran on 11-04-2022 Immunoglobulin light chains.kappa.free/Immu noglobulin light chains.lambda.free (S) [Mass ratio] 2.04 0.26-1.65 [facility] Comment on above: Performed at: [address] [id number] Director: Chato Rincon PhD, Phone: [phone] Immunoglobulin light chains. lambda.free [Mass/volume] in Serum or PlasmaOrdered By: Nicki Duran on 11-04-2022 Immunoglobulin light chains.lambda.free [Mass/Vol] 7.8 mg/L 5.7-26.3 [facility] Iron [Mass/volume] in Serum or PlasmaOrdered By: Nicki Duran 11-04-2022 Iron [Mass/Vol] 55 ug/dL 50-212 [facility] Iron binding capacity [Mass/ volume] in Serum or PlasmaOrdered By: Nicki Duran on 11-04-2022 Iron binding capacity [Mass/Vol] 391 ug/dL 255-450 [facility] Iron saturation [Mass Fracti on] in Serum or PlasmaOrdered By: Nicki Duran on 11-04-2022 Iron saturation [Mass fraction] 14.1 % 20-50 [facility] Lactate dehydrogenase [Enzym atic activity/volume] in Serum or Plasma by Lactate to pyOrdered By: Nicki Duran on 11-04-2022 LDH Lactate to pyruvate reaction [Catalytic activity/Vol] 153 U/L 140-271 [facility] Leukocytes [#/volume] correc [place] for nucleated erythrocytes in Blood by Automated counOrdered By: Nicki Duran on 11-04-2022 WBC corrected for nucl RBC Auto (Bld) [#/Vol] 13.6 10*3/uL 3.8-11.6 [facility] Lymphocytes Auto (Bld) [#/Vo l]Ordered By: Nicki Duran on 11-04-2022 Lymphocytes (Bld) [#/Vol] 4.0 10*3/uL 1.00-4.8 [facility] Lymphocytes/100 WBC Auto (Bl d)Ordered By: Nicki Duran on 11-04-2022 Lymphocytes/100 WBC (Bld) 29.2 % . [facility] MCH Auto (RBC) [Entitic mass ]Ordered By: Nicki Duran on 11-04-2022 MCH (RBC) [Entitic mass] 28.4 pg 24.7-34.3 [facility] MCHC Auto (RBC) [Mass/Vol]Or dered By: Nicki Duran on 11-04-2022 MCHC (RBC) [Mass/Vol] 33.1 g/dL 32.0-35.0 [facility] MCV Auto (RBC) [Entitic vol] Ordered By: Nicki Duran on 11-04-2022 MCV (RBC) [Entitic vol] 85.7 fL 80-100 [facility] Monocyte %Ordered By: Nicki bradley on 11-04-2022 Monocyte % 117 ug/dL 80-158 [facility] Comment on above: This test was develo ped and its performance characteristicsdetermined by [employer]. It has not been cleared orapproved by the Food and Drug Administration. Detection Limit = 5Performed at: [address] [id number] Director: Juan Tejada MD, Phone: [phone] Monocytes Auto (Bld) [#/Vol] Ordered By: Nicki Duran on 11-04-2022 Monocytes (Bld) [#/Vol] 0.7 10*3/uL 0.0-0.8 [facility] Monocytes/100 WBC Auto (Bld) Ordered By: Nicki Duran on 11-04-2022 Monocytes/100 WBC (Bld) 5.1 % . [facility] Neutrophils Auto (Bld) [#/Vo l]Ordered By: Nicki Duran on 11-04-2022 Neutrophils (Bld) [#/Vol] 8.3 10*3/uL 1.8-7.7 [facility] Neutrophils/100 WBC Auto (Bl d)Ordered By: Nicki Duran on 11-04-2022 Neutrophils/100 WBC (Bld) 61.3 % . [facility] No Panel InformationOrdered By: Nicki Duran on 11-04-2022 Estimated GFR (CKD-EPI) > 60.0 mL/Min [facility] Creatinine Clearance (Chem 88.00 [facility] Protein Electrophoresis M-Antwan Not observed g/dL Not Observed [facility] Protein Electrophoresis Note See comment . [facility] Comment on above: Protein electrophore sis scan will follow via computer,mail, or legal examiner delivery.Performed at: [id number] Director: Chato Rincon PhD, Phone: [phone] Serum Immunofixation See comment . [facility] Comment on above: No monoclonality det ected. Nucleated erythrocytes [Pres ence] in Blood by Automated countOrdered By: Nicki Duran on 11-04-2022 Nucleated RBC Auto Ql (Bld) 0.2 /100{WBC} 0-0.5 [facility] Platelet mean volume Auto (B ld) [Entitic vol]Ordered By: Nicki Duran on 11-04-2022 Platelet mean volume (Bld) [Entitic vol] 6.9 fL 6.3-10.7 [facility] Platelets Auto (Bld) [#/Vol] Ordered By: Nicki Duran on 11-04-2022 Platelets (Bld) [#/Vol] 385 10*3/uL 150-450 [facility] Potassium [Moles/volume] in Serum or PlasmaOrdered By: Nicki Duran on 11-04-2022 Potassium [Moles/Vol] 3.9 mmol/L 3.5-5.1 [facility] Protein [Mass/volume] in Ser um or PlasmaOrdered By: Nicki Duran on 11-04-2022 Protein [Mass/Vol] 6.7 g/dL 6.4-8.9 [facility] Protein [Mass/Vol] 6.6 g/dL 6.0-8.5 [facility] RBC Auto (Bld) [#/Vol]Ordere d By: Nicki Duran on 11-04-2022 RBC (Bld) [#/Vol] 4.76 10*6/uL 3.60-5.00 [facility] Serum globulin measurement ( mass/volume)Ordered By: Nicki Duran on 11-04-2022 Globulin (S) [Mass/Vol] 3.0 g/dL 2.2-3.9 [facility] Serum or plasma albumin/glob ulin mass ratioOrdered By: Nicki Duran on 11-04-2022 Albumin/Globulin [Mass ratio] 1.8 {ratio} [facility] Albumin/Globulin [Mass ratio] 1.2 {ratio} 0.7-1.7 [facility] Serum or plasma alpha 1 glob ulin measurement by electrophoresis (mass/volume)Ordered By: Nicki Duran on 11-04-2022 Alpha 1 globulin Elph [Mass/Vol] 0.3 g/dL 0.0-0.4 [facility] Serum or plasma alpha 2 glob ulin measurement by electrophoresis (mass/volume)Ordered By: Nicki Duran on 11-04-2022 Alpha 2 globulin Elph [Mass/Vol] 0.9 g/dL 0.4-1.0 [facility] Serum or plasma anion gap de terminationOrdered By: Nicki Duran on 11-04-2022 Anion gap [Moles/Vol] 11.1 mmol/L 6.0-15.0 [facility] Serum or plasma beta globuli n measurement by electrophoresis (mass/volume)Ordered By: Nicki Duran on 11-04-2022 Beta globulin Elph [Mass/Vol] 1.1 g/dL 0.7-1.3 [facility] Serum or plasma gamma globul in measurement by electrophoresis (mass/volume)Ordered By: Nicki Duran on 11-04-2022 Gamma globulin Elph [Mass/Vol] 0.8 g/dL 0.4-1.8 [facility] Sodium [Moles/volume] in Ser um or PlasmaOrdered By: Incki Roger on 11-04-2022 Sodium [Moles/Vol] 141 mmol/L 136-145 [facility] Transferrin [Mass/volume] in Serum or PlasmaOrdered By: Nicki Roger on 11-04-2022 Transferrin [Mass/Vol] 279 mg/dL 203-362 [facility] Urea nitrogen [Mass/volume] in Serum or PlasmaOrdered By: Nicki Roger on 11-04-2022 Urea nitrogen [Mass/Vol] 14 mg/dL 7-25 [facility] WBC Auto (Bld) [#/Vol]Ordere d By: Nicki Roger on 11-04-2022 WBC (Bld) [#/Vol] 13.6 10*3/uL 3.8-11.6 [facility] INSULINon 06-30-2022 Insulin 16.0 uIU/mL Normal 2.6-24.9 [facility] Comment on above: Performed By: #### I NSULIN #### [facility] [address] [place] [address] Dr. Moriah Schulz CBC AUTO DIFFon 06-28-2022 BASO # 0.1 103/ul Normal 0.0-0.1 [facility] Comment on above: Performed By: #### C BC #### [facility] [address] [place] [address] Dr. Moriah Schulz Basophils/100 WBC (Bld) 0.6 % Normal 0.2-2.0 [facility] Comment on above: Performed By: #### C BC #### [facility] [address] [place] [address] Dr. Moriah Schulz EO # 0.3 103/ul Normal 0.0-0.7 [facility] Comment on above: Performed By: #### C BC #### [facility] [address] [place] [address] Dr. Moriah Schulz Eosinophils/100 WBC (Bld) 3.0 % Normal 0.9-7.0 [facility] Comment on above: Performed By: #### C BC #### [facility] [address] [place] [address] Dr. Moriah Schulz Erythrocyte distribution width (RBC) [Ratio] 14.9 % Normal 11.0-15.0 [facility] Comment on above: Performed By: #### C BC #### [facility] [address] [place] [address] Dr. Moriah Schulz Hematocrit (Bld) [Volume fraction] 36.9 % Normal 36.0-48.0 [facility] Comment on above: Performed By: #### C BC #### [facility] [address] [place] [address] Dr. Moriah Schulz Hemoglobin (Bld) [Mass/Vol] 12.1 g/dL Normal 12.0-16.0 [facility] Comment on above: Performed By: #### C BC #### [facility] [address] [place] [address] Dr. Moriah Schulz IG # 0.03 10e3/ul Normal 0.00-0.03 [facility] Comment on above: Performed By: #### C BC #### [facility] [address] [place] [address] Dr. Moriah Schulz IG % 0.3 % Normal 0.0-0.5 [facility] Comment on above: Performed By: #### C BC #### [facility] [address] [place] [address] Dr. Moriah Schulz LYMPH # 2.8 103/ul Normal 1.2-3.8 [facility] Comment on above: Performed By: #### C BC #### [facility] [address] [place] [address] Dr. Moriah Schulz Lymphocytes/100 WBC (Bld) 29.1 % Normal 20.5-60.0 [facility] Comment on above: Performed By: #### C BC #### [facility] [address] [place] [address] Dr. Moriah Schulz MANUAL DIFF REQ NO Normal [facility] Comment on above: Performed By: #### C BC #### [facility] [address] [address] [address] Moriah Schulz MCH (RBC) [Entitic mass] 28.5 pg Normal 26.7-34.0 [facility] Comment on above: Performed By: #### C BC #### [facility] [address] [place] [address] Dr. Moriah Schulz MCHC (RBC) [Mass/Vol] 32.8 g/dL Normal 29.9-35.2 [facility] Comment on above: Performed By: #### C BC #### [facility] [address] [place] [address] Dr. Moriah Schulz MCV (RBC) [Entitic vol] 86.8 fL Normal 81.0-99.0 [facility] Comment on above: Performed By: #### C BC #### [facility] [address] [place] [address] Dr. Moriah Schulz MONO # 0.5 103/ul Normal 0.3-0.8 [facility] Comment on above: Performed By: #### C BC #### [facility] [address] [place] [address] Dr. Moriah Schulz Monocytes/100 WBC (Bld) 5.1 % Normal 1.7-12.0 [facility] Comment on above: Performed By: #### C BC #### [facility] [address] [place] [address] Dr. Moriah Schulz NEUT # 5.9 103/ul Normal 1.4-6.5 [facility] Comment on above: Performed By: #### C BC #### [facility] [address] [place] [address] Dr. Moriah Schulz Neutrophils/100 WBC (Bld) 61.9 % Normal 43.0-75.0 [facility] Comment on above: Performed By: #### C BC #### [facility] [address] [place] [address] Dr. Moriah Schulz Platelet mean volume (Bld) [Entitic vol] 8.2 fL Critically low 9.5-13.5 [facility] Comment on above: Performed By: #### C BC #### [facility] [address] [address] [address] Moriah Schulz PLT 280 103/ul Normal 150-450 [facility] Comment on above: Performed By: #### C BC #### [facility] [address] [address] [address] Moriah Schulz RBC 4.25 106/ul Normal 4.20-5.40 [facility] Comment on above: Performed By: #### C BC #### [facility] [address] [address] [address] Moriah Schulz WBC 9.6 103/ul Normal 4.0-11.0 [facility] Comment on above: Performed By: #### C BC #### [facility] [address] [address] [address] Moriah Schulz FREE THYROXINE INDEX T7on FTI 2.01 Normal 1.30-4.50 [facility] Comment on above: Performed By: #### T 7, CMP, LIPID, TSH #### [facility] [address] [address] [address] Moriah Schulz T3U 30.0 % Normal 30.0-39.0 [facility] Comment on above: Performed By: #### T 7, CMP, LIPID, TSH #### [facility] [address] [address] [address] Moriah Schulz T4 [Mass/Vol] 6.70 ug/dL Normal 4.80-13.90 [facility] Comment on above: Performed By: #### T 7, CMP, LIPID, TSH #### [facility] [address] [address] [address] Moriah Schulz GLYCOHEMOGLOBIN A1Con 2022 ADA RECOMMENDATION SEE BELOW Normal [facility] Comment on above: Result Comment: ADA RECOMMENDED LIMIT 4.0 - 6.0 ADA THERAPEUTIC TARGET < 7.0 ACTION SUGGESTED > 7.0 Performed By: #### A 1C ####[facility] [id number] [address]Dr. Moriah Schulz HbA1c (Bld) [Mass fraction] 5.2 % Normal 4.5-6.2 [facility] Comment on above: Performed By: #### A 1C ####[facility] [id number] [id number]. Moriah Schulz IRONon 06-28-2022 Iron [Mass/Vol] 47.0 ug/dL Critically low 50.0-170.0 [facility] Comment on above: Performed By: #### I SANDY ####[facility] [id number] [id number] Schulz LIPID PROFILEon 06-28-2022 CHOL-HDL RATIO NORM SEE BELOW Normal [facility] Comment on above: Result Comment: 3.3 - 4.4 LOW RISK 4.4 - 7.1 AVERAGE RISK 7.1 - 11.0 MODERATE RISK >11.0 HIGH RISK Performed By: #### T 7, CMP, LIPID, TSH #### [facility] [address] [address] [address] Moriah Schulz Cholesterol [Mass/Vol] 260 mg/dL Critically high <=200 [facility] Comment on above: Performed By: #### T 7, CMP, LIPID, TSH #### [facility] [address] [address] [address] Moriah Schulz Cholesterol in HDL [Mass/Vol] 41 mg/dL Normal 40-60 [facility] Comment on above: Performed By: #### T 7, CMP, LIPID, TSH #### [facility] [address] [address] [address] Moriah Schulz Cholesterol in LDL [Mass/Vol] 192.6 mg/dL Normal [facility] Comment on above: Performed By: #### T 7, CMP, LIPID, TSH #### [facility] [address] [address] [address] Moriah Schulz Cholesterol.total/Chol esterol in HDL [Mass ratio] 6.3 {ratio} Normal [facility] Comment on above: Performed By: #### T 7, CMP, LIPID, TSH #### [facility] [address] [address] [address] Moriah Schulz HDL NORMAL > or = 60 mg/dl - LO W CARDIOVASCULAR RISK <40 mg/dl - HIGH CARDIOVASCULAR RISK Normal [facility] Comment on above: Performed By: #### T 7, CMP, LIPID, TSH #### [facility] [address] [address] [address] Moriah Schulz LDL CALC NORMAL SEE BELOW Normal [facility] Comment on above: Result Comment: <100 mg/dl OPTIMAL 100 - 129 mg/dl NEAR OR ABOVE OPTIMAL 130 - 159 mg/dl BORDERLINE HIGH 160 - 189 mg/dl HIGH >190 mg/dl VERY HIGH Performed By: #### T 7, CMP, LIPID, TSH #### [facility] [address] [address] [address] Moriah Schulz Triglyceride [Mass/Vol] 132 mg/dL Normal <=150 [facility] Comment on above: Performed By: #### T 7, CMP, LIPID, TSH #### [facility] [address] [place] [address] Dr. Moriah Schulz VLDL CALC 26.4 mg/dL Normal [facility] Comment on above: Performed By: #### T 7, CMP, LIPID, TSH #### [facility] [address] [place] [address] Dr. Moriah Schulz PROF 14(COMP METB)on 023 Albumin [Mass/Vol] 3.7 g/dL Normal 3.4-5.0 [facility] Comment on above: Performed By: #### T 7, CMP, LIPID, TSH #### [facility] [address] [place] [address] Dr. Moriah Schulz Albumin/Globulin [Mass ratio] 1.0 {ratio} Normal [facility] Comment on above: Performed By: #### T 7, CMP, LIPID, TSH #### [facility] [address] [place] [address] Dr. Moriah Schulz ALP [Catalytic activity/Vol] 90 U/L Normal 46-116 [facility] Comment on above: Performed By: #### T 7, CMP, LIPID, TSH #### [facility] [address] [place] [address] Dr. Moriah Schulz ALT [Catalytic activity/Vol] 38 U/L Normal 14-59 [facility] Comment on above: Performed By: #### T 7, CMP, LIPID, TSH #### [facility] [address] [address] [address] Moriah Schulz Anion gap [Moles/Vol] 12.4 mmol/L Normal Th [facility] Comment on above: Performed By: #### T 7, CMP, LIPID, TSH #### [facility] [address] [place] [address] Dr. Moriah Schulz AST [Catalytic activity/Vol] 15 U/L Normal 15-37 [facility] Comment on above: Performed By: #### T 7, CMP, LIPID, TSH #### [facility] [address] [place] [address] Dr. Moriah Schulz Bilirubin [Mass/Vol] 0.3 mg/dL Normal 0.2-1.0 [facility] Comment on above: Performed By: #### T 7, CMP, LIPID, TSH #### [facility] [address] [place] [address] Dr. Moriah Schulz Calcium [Mass/Vol] 8.8 mg/dL Normal 8.5-10.1 [facility] Comment on above: Performed By: #### T 7, CMP, LIPID, TSH #### [facility] [address] [place] [address] Dr. Moriah Schulz Chloride [Moles/Vol] 101 mmol/L Normal 98-107 [facility] Comment on above: Performed By: #### T 7, CMP, LIPID, TSH #### [facility] [address] [place] [address] Dr. Moriah Schulz CO2 [Moles/Vol] 29.2 mmol/L Normal 21.0-32.0 [facility] Comment on above: Performed By: #### T 7, CMP, LIPID, TSH #### [facility] [address] [place] [address] Dr. Moriah Schulz Creatinine [Mass/Vol] 0.99 mg/dL Normal 0.55-1.02 [facility] Comment on above: Performed By: #### T 7, CMP, LIPID, TSH #### [facility] [address] [address] [address] Moriah Schulz EGFR-AF KYRGYZ >60 Normal >=60 [facility] Comment on above: Performed By: #### T 7, CMP, LIPID, TSH #### [facility] [address] [address] [address] Moriah Schulz EGFR-NON AF KYRGYZ >60 Normal >=60 [facility] Comment on above: Performed By: #### T 7, CMP, LIPID, TSH #### [facility] [address] [address] [address] Moriah Schulz Globulin (S) [Mass/Vol] 3.7 g/dL Normal [facility] Comment on above: Performed By: #### T 7, CMP, LIPID, TSH #### [facility] [address] [address] [address] Moriah Schulz Glucose [Mass/Vol] 103 mg/dL Normal [facility] Comment on above: Performed By: #### T 7, CMP, LIPID, TSH #### [facility] [address] [address] [address] Moriah Schulz Performed By: #### A 1C ####[facility] [id number] [address]Dr. Moriah Schulz Potassium [Moles/Vol] 3.6 mmol/L Normal 3.5-5.1 [facility] Comment on above: Performed By: #### T 7, CMP, LIPID, TSH #### [facility] [address] [address] [address] Moriah Schulz Protein [Mass/Vol] 7.4 g/dL Normal 6.4-8.2 [facility] Comment on above: Performed By: #### T 7, CMP, LIPID, TSH #### [facility] [address] [address] [address] Moriah Schulz Sodium [Moles/Vol] 139 mmol/L Normal 136-145 [facility] Comment on above: Performed By: #### T 7, CMP, LIPID, TSH #### [facility] [address] [place], [place] [address] Dr. Moriah Schulz Urea nitrogen [Mass/Vol] 14.0 mg/dL Normal 7.0-18.0 [facility] Comment on above: Performed By: #### T 7, CMP, LIPID, TSH #### [facility] [address] [address] [address] Moriah Schulz Urea nitrogen/Creatinine [Mass ratio] 14.1 mg/mg Normal [facility] Comment on above: Performed By: #### T 7, CMP, LIPID, TSH #### [facility] [address] [address] [address] Moriah Schulz TSHon 06-28-2022 TSH 3.338 uIU/mL Normal 0.358-3.740 [facility] Comment on above: Performed By: #### T 7, CMP, LIPID, TSH #### [facility] [address] [address] [address] Moriah Schulz Albumin [Mass/volume] in Ser um or PlasmaOrdered By: Jenny Reis on 11-21-2021 Albumin [Mass/Vol] 4.1 g/dL 3.2-5.5 [facility] Basophils Auto (Bld) [#/Vol] Ordered By: Jenny Reis on 11-21-2021 Basophils (Bld) [#/Vol] 0.1 10*3/uL 0.0-0.2 [facility] Basophils/100 WBC Auto (Bld) Ordered By: Jenny Reis on 11-21-2021 Basophils/100 WBC (Bld) 0.8 % . [facility] Blood hemoglobin measurement (mass/volume)Ordered By: Jenny Reis on 11-21-2021 Hemoglobin (Bld) [Mass/Vol] 13.4 g/dL 11.8-15.4 [facility] Blood leukocytes automated c ount (number/volume)Ordered By: Jenny Reis on 11-21-2021 WBC (Bld) [#/Vol] 13.9 10*3/uL 4.5-11.0 [facility] Cholesterol [Mass/volume] in Serum or PlasmaOrdered By: Jenny Reis on 11-21-2021 Cholesterol [Mass/Vol] 240 mg/dL 140-200 [facility] Comment on above: Chol less than 200 m g/dl low risk Chol 201-239 mg/dl borderline risk Chol 240 mg/dl and greater high risk Cholesterol in LDL Calc [Mas s/Vol]Ordered By: Jenny Reis on 11-21-2021 Cholesterol in LDL [Mass/Vol] 143 mg/dL 0-100 [facility] Comment on above: LDL ATP III CLASSIFI CATION LDL less than 100 mg/dL Optimal LDL 100-129 mg/dL Near or above optimal LDL 130-159 mg/dL Borderline high LDL 160-189 mg/dL High LDL greater than 189 mg/dL Very high Cholesterol in VLDL Calc [Ma ss/Vol]Ordered By: Jenny Reis on 11-21-2021 Cholesterol in VLDL [Mass/Vol] 59 mg/dL [facility] Creatinine and Glomerular fi ltration rate.predicted panel (S/P/Bld)Ordered By: Jenny Reis on 11-21-2021 Creatinine [Mass/Vol] 0.99 mg/dL 0.44-1.03 [facility] Eosinophils Auto (Bld) [#/Vo l]Ordered By: Jenny Reis on 11-21-2021 Eosinophils (Bld) [#/Vol] 0.4 10*3/uL 0.0-0.45 [facility] Eosinophils/100 WBC Auto (Bl d)Ordered By: Jenny Reis on 11-21-2021 Eosinophils/100 WBC (Bld) 3.1 % . [facility] Erythrocyte distribution wid th Auto (RBC) [Ratio]Ordered By: Jenny Reis on 11-21-2021 Erythrocyte distribution width (RBC) [Ratio] 15.3 % 11.9-15.3 [facility] Estimated glomerular filtrat ion rate (GFR) non- AmericanOrdered By: Jenny Reis on 11-21-2021 GFR/1.73 sq M.predicted among non-blacks MDRD (S/P/Bld) [Vol rate/Area] > 60 mL/Min [facility] Globulin Calc (S) [Mass/Vol] Ordered By: Jenny Reis on 11-21-2021 Globulin (S) [Mass/Vol] 2.9 g/dL [facility] Glucose mean value [Mass/vol ume] in Blood Estimated from glycated hemoglobinOrdered By: Jenny Reis on 11-21-2021 Average glucose Estimated from glycated hemoglobin (Bld) [Mass/Vol] 128 mg/dL [facility] Hematocrit Auto (Bld) [Volum e fraction]Ordered By: Jenny Reis on 11-21-2021 Hematocrit (Bld) [Volume fraction] 40.5 % 34.0-46.4 [facility] Hemoglobin A1c percentageOrd ered By: Jenny Reis on 11-21-2021 HbA1c (Bld) [Mass fraction] 6.1 % 4.3-5.6 [facility] Comment on above: Increased risk for d iabetes: 5.7 - 6.4 diabetes: >6.4 glycemic control for adults with diabetes: <7.0 Iron [Mass/volume] in Serum or PlasmaOrdered By: Jenny Reis on 11-21-2021 Iron [Mass/Vol] 54 ug/dL 40-150 [facility] - Hematology and Cell countsOrdered By: Jenny Reis on 11-21-2021 Nucleated RBC/100 WBC (Bld) [Ratio] 0.1 % 0-0.5 [facility] Lymphocytes Auto (Bld) [#/Vo l]Ordered By: Jenny Reis on 11-21-2021 Lymphocytes (Bld) [#/Vol] 2.6 10*3/uL 1.00-4.8 [facility] Lymphocytes/100 WBC Auto (Bl d)Ordered By: Jenny Reis on 11-21-2021 Lymphocytes/100 WBC (Bld) 18.6 % . [facility] MCH Auto (RBC) [Entitic mass ]Ordered By: Jenny Reis on 11-21-2021 MCH (RBC) [Entitic mass] 28.2 pg 24.7-34.3 [facility] MCHC Auto (RBC) [Mass/Vol]Or dered By: Jenny Reis on 11-21-2021 MCHC (RBC) [Mass/Vol] 33.2 g/dL 32.0-35.0 [facility] MCV Auto (RBC) [Entitic vol] Ordered By: Jenny Reis on 11-21-2021 MCV (RBC) [Entitic vol] 85.2 fL 80-100 [facility] Monocytes Auto (Bld) [#/Vol] Ordered By: Jenny Reis on 11-21-2021 Monocytes (Bld) [#/Vol] 0.7 10*3/uL 0.0-0.8 [facility] Monocytes/100 WBC Auto (Bld) Ordered By: Jenny Reis on 11-21-2021 Monocytes/100 WBC (Bld) 4.7 % . [facility] Neutrophils Auto (Bld) [#/Vo l]Ordered By: Jenny Reis on 11-21-2021 Neutrophils (Bld) [#/Vol] 10.1 10*3/uL 1.8-7.7 [facility] Neutrophils/100 WBC Auto (Bl d)Ordered By: Jenny Reis on 11-21-2021 Neutrophils/100 WBC (Bld) 72.8 % . [facility] No Panel InformationOrdered By: Jenny Reis on 11-21-2021 Estimated GFR () > 60 mL/Min [facility] Comment on above: GFR estimated refere nce range: According to KDOQI guidelines, <60 ml/min/1.73m2 is sufficient to diagnose a patient with chronic kidney disease. Pharmacy Creatinine Clearance (Chem N/A [facility] Platelet mean volume Auto (B ld) [Entitic vol]Ordered By: Jenny Reis on 11-21-2021 Platelet mean volume (Bld) [Entitic vol] 6.4 fL 6.3-10.7 [facility] Platelets Auto (Bld) [#/Vol] Ordered By: Jenny Reis on 11-21-2021 Platelets (Bld) [#/Vol] 467 10*3/uL 150-450 [facility] Protein [Mass/volume] in Ser um or PlasmaOrdered By: Jenny Reis on 11-21-2021 Protein [Mass/Vol] 7.0 g/dL 6.1-7.9 [facility] RBC Auto (Bld) [#/Vol]Ordere d By: Jenny Reis on 11-21-2021 RBC (Bld) [#/Vol] 4.75 10*6/uL 3.60-5.00 [facility] Serum or plasma alanine henderson otransferase measurement without P-5'-P (enzymatic activiOrdered By: Jenny Reis on 11-21-2021 ALT No additional P-5'-P [Catalytic activity/Vol] 22 U/L 10-60 [facility] Serum or plasma albumin/glob ulin mass ratioOrdered By: Jenny Reis on 11-21-2021 Albumin/Globulin [Mass ratio] 1.4 {ratio} [facility] Serum or plasma alkaline nataliia sphatase measurement (enzymatic activity/volume)Ordered By: Jenny Reis on 11-21-2021 ALP [Catalytic activity/Vol] 84 U/L 32-92 [facility] Serum or plasma anion gap de terminationOrdered By: Jenny Reis on 11-21-2021 Anion gap [Moles/Vol] 15.1 mmol/L 6.0-15.0 [facility] Serum or plasma aspartate am inotransferase measurement (enzymatic activity/volume)Ordered By: Jenny Reis on 11-21-2021 AST [Catalytic activity/Vol] 22 U/L 10-42 [facility] Serum or plasma calcium everardo urement (mass/volume)Ordered By: Jenny Reis on 11-21-2021 Calcium [Mass/Vol] 9.0 mg/dL 8.2-10.2 [facility] Serum or plasma chloride jero surement (moles/volume)Ordered By: Jenny Reis on 11-21-2021 Chloride [Moles/Vol] 101 mmol/L 95-114 [facility] Serum or plasma glucose everardo urement (mass/volume)Ordered By: Jenny Reis on 11-21-2021 Glucose [Mass/Vol] 102 mg/dL 70-100 [facility] Comment on above: ADA recommended refe rence range Random Glucose Reference Range is dependent on time and content of last meal. Glucose of more than 200 mg/dL in a nonstressed, ambulatory subject supports the diagnosis of Diabetes Mellitus. Serum or plasma high density lipoprotein (HDL) cholesterol measurementOrdered By: Jenny Reis on 11-21-2021 Cholesterol in HDL [Mass/Vol] 37 mg/dL 35-85 [facility] Comment on above: HDL CHOL ATP-III CLA SSIFICATION Cardiovascular Risk HDL > or equal to 60 mg/dL LOW HDL < 40 mg/dL HIGH Serum or plasma potassium me asurement (moles/volume)Ordered By: Jenny Reis on 11-21-2021 Potassium [Moles/Vol] 3.9 mmol/L 3.5-5.1 [facility] Serum or plasma sodium measu rement (moles/volume)Ordered By: Jenny Reis on 11-21-2021 Sodium [Moles/Vol] 135 mmol/L 136-146 [facility] Serum or plasma total biliru bin measurement (mass/volume)Ordered By: Jenny Resi on 11-21-2021 Bilirubin [Mass/Vol] 0.6 mg/dL 0.3-1.2 [facility] Serum or plasma total carbon dioxide measurement (moles/volume)Ordered By: Jenny Reis on 11-21-2021 CO2 [Moles/Vol] 22.8 mmol/L 22.0-30.0 [facility] Serum or plasma total choles terol/high density lipoprotein (HDL) cholesterol mass ratOrdered By: Jenny Reis on 11-21-2021 Cholesterol.total/Chol esterol in HDL [Mass ratio] 6.5 {ratio} <5.0 [facility] Serum or plasma urea nitroge n measurement (mass/volume)Ordered By: Jenny Reis on 11-21-2021 Urea nitrogen [Mass/Vol] 10 mg/dL 9- [facility] Triglyceride [Mass/volume] i n Serum or PlasmaOrdered By: Jenny Reis on 11-21-2021 Triglyceride [Mass/Vol] 299 mg/dL 35-149 [facility] Comment on above: TRIG ATP III CLASSIF ICATION TRIG less than 150 mg/dL Normal TRIG 150-199 mg/dL Borderline high TRIG 200-500 mg/dL High TRIG greater than 500 mg/dL Very high Standard traceable to the Center for Disease Conrtrol and Prevention (CDC) test method. CBC AUTO DIFFon 08-12-2021 BASO # 0.1 103/ul Normal 0.0-0.1 [facility] Comment on above: Performed By: #### C BC ####[facility] [id number] [place], [place] [address]Dr. Moriah Schulz Basophils/100 WBC (Bld) 0.6 % Normal 0.2-2.0 [facility] Comment on above: Performed By: #### C BC ####[facility] [address] [place], [place] [address]Dr. Moriah Schulz EO # 0.3 103/ul Normal 0.0-0.7 [facility] Comment on above: Performed By: #### C BC ####[facility] [address] [place], [place] [address]Dr. Moriah Schulz Eosinophils/100 WBC (Bld) 2.4 % Normal 0.9-7.0 [facility] Comment on above: Performed By: #### C BC ####[facility] [address] [place], [place] [address]Dr. Moriah Schulz Erythrocyte distribution width (RBC) [Ratio] 13.4 % Normal 11.0-15.0 [facility] Comment on above: Performed By: #### C BC ####[facility] [address] [place], [place] [address]Dr. Moriah Schulz Hematocrit (Bld) [Volume fraction] 38.5 % Normal 36.0-48.0 [facility] Comment on above: Performed By: #### C BC ####[facility] [address] [place], [place] [address]Dr. Moriah Schulz Hemoglobin (Bld) [Mass/Vol] 12.4 g/dL Normal 12.0-16.0 [facility] Comment on above: Performed By: #### C BC ####[facility] [address] [place], [place] [address]Dr. Moriah Schulz IG # 0.05 10e3/ul Critically high 0.00-0.03 [facility] Comment on above: Performed By: #### C BC ####[facility] [address] [place], [place] [address]Dr. Moriah Schulz IG % 0.4 % Normal 0.0-0.5 [facility] Comment on above: Performed By: #### C BC ####[facility] [address] [address]DrAdrienne Moriah Zeus LYMPH # 3.3 103/ul Normal 1.2-3.8 [facility] Comment on above: Performed By: #### C BC ####[facility] [address] [address]DrAdrienne Moriah Zeus Lymphocytes/100 WBC (Bld) 24.0 % Normal 20.5-60.0 [facility] Comment on above: Performed By: #### C BC ####[facility] [address] [place], [place] [address]DrAdrienne Inatrang Schulz MANUAL DIFF REQ NO Normal [facility] Comment on above: Performed By: #### C BC ####[facility] [address] [place], [place] [address]DrAdrienne Moriah Zeus MCH (RBC) [Entitic mass] 28.6 pg Normal 26.7-34.0 [facility] Comment on above: Performed By: #### C BC ####[facility] [address] [place], [place] [address]Dr. Moriah Zeus MCHC (RBC) [Mass/Vol] 32.2 g/dL Normal 29.9-35.2 [facility] Comment on above: Performed By: #### C BC ####[facility] [address] [place], [place] [address]DrAdrienne Moriah Zues MCV (RBC) [Entitic vol] 88.9 fL Normal 81.0-99.0 [facility] Comment on above: Performed By: #### C BC ####[facility] [address] [place], [place] [address]DrAdrienne Inatrang Schulz MONO # 0.7 103/ul Normal 0.3-0.8 [facility] Comment on above: Performed By: #### C BC ####[facility] [address] [place], [place] [id number] Inatrang Schulz Monocytes/100 WBC (Bld) 5.2 % Normal 1.7-12.0 [facility] Comment on above: Performed By: #### C BC ####[facility] [address] [address]Dr. Moriah Schulz NEUT # 9.1 103/ul Critically high 1.4-6.5 [facility] Comment on above: Performed By: #### C BC ####[facility] [address] [address]Dr. Moriah Schulz Neutrophils/100 WBC (Bld) 67.4 % Normal 43.0-75.0 [facility] Comment on above: Performed By: #### C BC ####[facility] [address] [address]Dr. Moriah Schulz Platelet mean volume (Bld) [Entitic vol] 8.4 fL Critically low 9.5-13.5 [facility] Comment on above: Performed By: #### C BC ####[facility] [address] [place], [place] [address]Dr. Moriah Schulz PLT 358 103/ul Normal 150-450 [facility] Comment on above: Performed By: #### C BC ####[facility] [address] [place], [place] [address]Dr. Moriah Schulz RBC 4.33 106/ul Normal 4.20-5.40 [facility] Comment on above: Performed By: #### C BC ####[facility] [address] [place], [place] [address]Dr. Moriah Schulz WBC 13.6 103/ul Critically high 4.0-11.0 [facility] Comment on above: Performed By: #### C BC ####[facility] [address] [place], [place] [address]Dr. Moriah Schulz Covid-19 PCR ([facility])on 07-16 SARS-CoV-2 (COVID-19) RNA TONY+probe Ql (Unsp spec) Not detected Normal NOT DETECTED [facility] Comment on above: Result Comment: When diagnostic [...] for this test is supported by the [place] of Health and Human Service's declaration that [...] longer be used). Performed By: #### C JAMAR #### [facility] [address] [place] [address] Dr. Moriah Schulz ER URINE PROFILEon 2 Bilirubin Ql (U) Negative Normal NEGATIVE [facility] Comment on above: Performed By: #### RAMON ROGERRO #### [facility] [address] [place] [address] Dr. Moriah Schulz Clarity (U) CLEAR Normal CLEAR [facility] Comment on above: Performed By: #### RAMON ROGERRO #### [facility] [address] [place] [address] Dr. Moriah Schulz Color (U) YELLOW Normal YELLOW [facility] Comment on above: Performed By: #### RAMON ROGERRO #### [facility] [address] [place] [address] Dr. Moriah Schulz ERUAHD A micrscopic examina tion will be performed if indicated. Normal [facility] Comment on above: Performed By: #### RAMON ROGERRO #### [facility] [address] [place] [address] Dr. Moriah Schulz Glucose Ql (U) Negative Normal NEGATIVE [facility] Comment on above: Performed By: #### RAMON ROGERRO #### [facility] [address] [place] [address] Dr. Moriah Schulz Hemoglobin Ql (U) SMALL Abnormal NEGATIVE [facility] Comment on above: Performed By: #### E RUR, UMICRO #### [facility] [address] [place] [address] Dr. Moriah Schulz Ketones Ql (U) Negative Normal NEGATIVE [facility] Comment on above: Performed By: #### E RUR, UMICRO #### [facility] [address] [place] [address] Dr. Moriah Schulz LEUKOCYTES Negative Normal NEGATIVE [facility] Comment on above: Performed By: #### E RUR, UMICRO #### [facility] [address] [place] [address] Dr. Moriah Schulz Nitrite Ql (U) Negative Normal NEGATIVE [facility] Comment on above: Performed By: #### E MASSIEL UMICRO #### [facility] [address] [place] [address] Dr. Moriah Schulz pH (U) 5.5 [pH] Normal 5-9 [facility] Comment on above: Performed By: #### E MASSIEL UMICRO #### [facility] [address] [place] [address] Dr. Moriah Schulz SPEC GRAVITY >=1.030 Abnormal 1.005-<=1.0 25 [facility] Comment on above: Performed By: #### Moshe RANKIN UMICRO #### [facility] [address] [place] [address] Dr. Moriah Schulz UA PROTEIN Negative Normal NEGATIVE/ TRACE [facility] Comment on above: Performed By: #### E MASSIEL, UMICRO #### [facility] [address] [place] [address] Dr. Moriah Schulz UR MICRO IND INDICATED Normal [facility] Comment on above: Performed By: #### E MASSIEL, UMICRO #### [facility] [address] [place] [address] Dr. Moriah Schulz Urobilinogen Qn (U) 0.2 {Hanny'U}/dL Normal 0.2 - 1. 0 [facility] Comment on above: Performed By: #### E RUR, UMICRO #### [facility] [address] [place] [address] Dr. Moriah Schulz INFLUENZA A AND B AGon 08-12 [facility] SEE BELOW Normal [facility] Comment on above: Result Comment: Nega tive for Flu A protein angiten. Infection due to Flu A cannot be ruled out. Flu A angiten in the sample may be below the detection limit of the test. Performed By: #### I NFLUAB #### [facility] [address] [place] [address] Dr. Moriah Schul[facility] Normal [facility] Comment on above: Result Comment: Nega tive for Flu B protein antigen. Infection due to Flu B cannot be ruled out. Flu B antigen in the sample may be below the detection limit of the test. Performed By: #### I NFLUAB #### [facility] [address] [place] [address] Dr. Moriah Schulz INFLUENZA A AG Negative Normal NEGATIVE SEE COMMENT [facility] Comment on above: Performed By: #### I NFLUAB #### [facility] [address] [place] [address] Dr. Moriah Schulz INFLUENZA B AG Negative Normal NEGATIVE SEE COMMENT [facility] Comment on above: Performed By: #### I NFLUAB #### [facility] [address] [place] [address] Dr. Moriah Schulz INTERNAL CONTROLS Within Normal Limits Normal Wi thin Normal Limits [facility] Comment on above: Performed By: #### I NFLUAB #### [facility] [address] [place] [address] Dr. Moriah Schulz PROF 14(COMP METB)on 022 Albumin [Mass/Vol] 3.5 g/dL Normal 3.4-5.0 [facility] Comment on above: Performed By: #### C MP ####[facility] [address] [address]Dr. Moriah Schulz Albumin/Globulin [Mass ratio] 1.0 {ratio} Normal [facility] Comment on above: Performed By: #### C MP ####[facility] [address] [id number]. Moriah Schulz ALP [Catalytic activity/Vol] 101 U/L Normal 46-116 [facility] Comment on above: Performed By: #### C MP ####[facility] [address] [id number]. Moriah Schulz ALT [Catalytic activity/Vol] 25 U/L Normal 14-59 [facility] Comment on above: Performed By: #### C MP ####[facility] [address] [address]Dr. Moriah Schulz Anion gap [Moles/Vol] 11.4 mmol/L Normal Th e [facility] Comment on above: Performed By: #### C MP ####[facility] [address] [address]Dr. Moriah Schulz AST [Catalytic activity/Vol] 11 U/L Critically low 15-37 [facility] Comment on above: Performed By: #### C MP ####[facility] [address] [address]Dr. Moriah Schulz Bilirubin [Mass/Vol] 0.3 mg/dL Normal 0.2-1.0 [facility] Comment on above: Performed By: #### C MP ####[facility] [address] [address]Dr. Moriah Schulz Calcium [Mass/Vol] 8.9 mg/dL Normal 8.5-10.1 [facility] Comment on above: Performed By: #### C MP ####[facility] [address] [address]Dr. Moriah Schulz Chloride [Moles/Vol] 105 mmol/L Normal 98-107 [facility] Comment on above: Performed By: #### C MP ####[facility] [address] [address]Dr. Moriah Schulz CO2 [Moles/Vol] 27.3 mmol/L Normal 21.0-32.0 [facility] Comment on above: Performed By: #### C MP ####[facility] [address] [address]Dr. Moriah Schulz Creatinine [Mass/Vol] 0.91 mg/dL Normal 0.55-1.02 [facility] Comment on above: Performed By: #### C MP ####[facility] [address] [address]Dr. Moriah Schulz EGFR-AF KYRGYZ >60 Normal >=60 [facility] Comment on above: Performed By: #### C MP ####[facility] [address] [place], [place] [address]Dr. Moriah Zeus EGFR-NON AF KYRGYZ >60 Normal >=60 [facility] Comment on above: Performed By: #### C MP ####[facility] [address] [place], [place] [address]Dr. Moriah Zeus Globulin (S) [Mass/Vol] 3.5 g/dL Normal [facility] Comment on above: Performed By: #### C MP ####[facility] [address] [place], [place] [address]Dr. Moriah Zeus Glucose [Mass/Vol] 104 mg/dL Normal 74-106 [facility] Comment on above: Performed By: #### C MP ####[facility] [address] [place], [place] [address]Dr. Moriah Zeus Potassium [Moles/Vol] 3.7 mmol/L Normal 3.5-5.1 [facility] Comment on above: Performed By: #### C MP ####[facility] [address] [place], [place] [address]Dr. Moriah Zeus Protein [Mass/Vol] 7.0 g/dL Normal 6.4-8.2 [facility] Comment on above: Performed By: #### C MP ####[facility] [address] [place], [place] [address]Dr. Moriah Schulz Sodium [Moles/Vol] 140 mmol/L Normal 136-145 [facility] Comment on above: Performed By: #### C MP ####[facility] [address] [place], [place] [address]Dr. Moriah Schulz Urea nitrogen [Mass/Vol] 15.0 mg/dL Normal 7.0-18.0 [facility] Comment on above: Performed By: #### C MP ####[facility] [address] [place], [place] [address]Dr. Moriah Schulz Urea nitrogen/Creatinine [Mass ratio] 16.5 mg/mg Normal [facility] Comment on above: Performed By: #### C MP ####[facility] [address] [place], [place] [address]Dr. Moriah Schulz URINE MICROSCOPIC ONLYon BACTERIA TRACE Abnormal NONE SEEN [facility] Comment on above: Performed By: #### Moshe RANKIN UMICRO ####[facility] [address] [place], [place] [address]Dr. Moriah Schulz Bacteria identified Cx Nom (U) NOT INDICATED Normal [facility] Comment on above: Performed By: #### Moshe RANKIN UMICRO ####[facility] [address] [place], [place] [address]Dr. Moriah Schulz CAST NONE SEEN Normal NONE SEEN [facility] Comment on above: Performed By: #### Moshe RANKIN UMICRO ####[facility] [address] [place], [place] [address]Dr. Moriah Schulz Crystals LM Nom (Urine sed) NONE SEEN Normal NONE SEEN [facility] Comment on above: Performed By: #### Moshe RANKIN UMICRO ####[facility] [address] [place], [place] [address]Dr. Moriah Schulz Epithelial cells LM Ql (Urine sed) MODERATE Abnormal NONE SEEN /RARE [facility] Comment on above: Performed By: #### Moshe RUBianka UMICRO ####[facility] [address] [place], [place] [address]Dr. Moriah Schulz MUCOUS NONE SEEN Normal NONE SEEN [facility] Comment on above: Performed By: #### Moshe RANKIN UMICRO ####[facility] [address] [place], [place] [address]Dr. Moriah Schulz RBC 2-5 Abnormal 0-2 [facility] Comment on above: Performed By: #### CHIN ROGER ####[facility] [address] [place], [place] [address]Nf. Moriah Schulz WBC 2-5 Abnormal NONE SEEN [facility] Comment on above: Performed By: #### CHIN ROGER ####[facility] [id number] [place], [place] [address]Ko. 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 [id number] Gh0bWw +PGhlYWQ+ZP8BDDTuW19dyXJzp Q5TK5pJLS7QHUKGCWGZDJ8MPM3 vkYR8QHjaA9HkqgWp WitycQFyVM73HAa8FAZ2rOquGG cktP7ehMGvQ6c0IyQyTB62pB74 MOvbHSOpZjF9YuJksergwNSo A5pyWmUnsOMaSzm+PHRhYmxlIH xmOHLqMFbyEFWpDlNdyGdeAM7g Ca4gPEBtWJUypKydyNBaRxYe n9ivKLUlGJabBT0dgLgpS4IdrC H8HSSrg3y6Bd00rAT+PHRkIHN0 cYhxVEonj187KrVwi6wwZYZ5 lMNyAObxKKH3W09jg0O0IRGaFV RkVYB7hKC5kS9yuCuyigznQ7Cz tQVwSeJ3VSJ3hKJutI5egVld kcrjhG8jYxt+N69CJI9TVBKAZX 5ZYdw5Q1UsHikwpPA+FW02PGQn PL96oHCchZMby1ydqKu6WtTa WYMbVBU1kHctXAqsk1NbXCDkS5 7seYAwg1N3ELSxbYmwpVPcGgPs hFG0aJ6vZCykixvfc1yugxgz Ayvyw1abyk17fH91E74kOXkpLJ TwEYM5GOHyQKAvtGermb0eeI3u Ii8+NFfyc5qkc4ykmQx3EvSe RLLbmcBoqQdbMSO5p8AjIu05Y6 SrwLinx7DqLxv4fo92hJGzn7U1 zQY7KOsuRQNohC1uBFyqBrE1 SJMiZuBvzU19gTBqGRsmCy8cxO ddxIaeYI4yJVAwzpteARHhhG9p MJSpuUJrcFdxWQ9rIKHazboe w975QxKxTBP9ZRMlxCTsV6HxnV 2jNqWvGJVzXPJbZ9JtqXTcNGyo E067VQkiOvK8ZGWlaoAoA7Ut WRBedZkiEaJ0v8J8Xj0Fg6Pgao woPOE7PGdsEKP1CwX4TqGeWmI1 Y5GtAyq4GVYrtUzcVM9bZ3Ei SFCetgssnmrhbFJ2OEYvGBMypT 61zYStIIqpGx2gh8V0i455EUPl HNZwmR62Dt8moEahEFAqwKXN kK7hqdvxd9yddddyRsPeRTPwIY z8GGt1KJZtbAekMsMeJBV4SnO8 TWN1hXKvmY1qxHbyvplwgS4b Oyc+O85pqB6sKUR1IKB5lvbzVV FnisKhQL64QO63D9OeZgzzlZLn bGU+JHVtxkJfeSbrIV1rCiXa v6kca5XdJOsrX5ZwHQLbVWboGi b0EBJvIYG0sLL0nQ6pOBGuBVlf n3V9yPN7C0HjhjHhon5di5oj CCYdIPcaR46byHAbl8E8QNDflL Q2JLLhkPilSbFjyZ99Lrj+PGNv iAcld8TzEqzcz8ipe8eiyKx0 EtXtPWDkriQebZajDXF0z6VzWz 75M08dRZfbCKZpWJGyDLTfJTMi iAkcqg2flS5yBb9+PGNvbCB3 bIS2qO6uNSMqPuQ8ALoxS967Sc LobPHaXolvj9jhe9jakEq4TwTz RZYesqFfzKqjJPY3k0JyTg07 B34lADzuHMJrJOLtERHnVSYniC rzql5opY8aJy2+NG0mc1uazi77 lY07iZH+KSCwMEX8yLvbOFtu CJAepN6tAIarXjW7SVAbKpFupE 37tXByIGaxRt7blFrfeStgKJ8k QHJtatljo606HhRur0kqODFm mBTfQQrsOVB5W92ld8B3COByRV JrAYG9bVY5wG6iqVfpidoqmEVr yRnfdlMehVasGWtyDDzkU058 IHRvcDsnPlBhdGllbnQgTmFtZT l1N7WbRuz3ADFlmSfwZG3lmQYc BIqgFi0tlRmigOjlRH4aHMSb zaqni875MbMin0dqQNLbgJQzMZ weGGZ7K77ll5F1IUCuNMNaNWP8 nHF9aB8gePjtxznffVFdlLgg cwIthGfhLYknUWvnO035LAQjpB gfWkNqodSiYNGqnJQ8ST77DR12 hVBcr0C1oYO5Z9LnMNKtkgyz trkdzLR2SRRxGJSevA44Yb5wcX jaLd0cPKApLBJ2DSMusQVbG3Sp pX9rPtSeJAWxXTAdF4SztCRa UDwmH340TZgwWbG4ZMNrowPvB8 NjBFWyoSmtAfJ8m3G8Cz4RP2G8 UZ42XG84yPRdb6K0uTR2S6Nt JLErlazkjxkgjQK2BEGhPFUhtN 53Ov3hrVamSi6gBOSeLAL5FKKg jWEnE8QgbQ7wIrKmNHPeRQWr J8MqeZCzGUhfF380OOivLjN3GK RvgbNwE1ZaNAIcpEfrGwH6h2H1 Ry4FVWa9AV26MB29cNExy2F9 gTH3X3DmAXBockpvzbqltDI0RR SgCZRzbH88Yn1jaAggRh6dMKVz GVZ7ZBUrwXYyA4RumN1vIkKf LWWdJYNfS3RjnBQzPThyL064AO qwCdG7XUNbukSpR4BoBXOrpYtb SkW4n4B2Ba6AXZNbZB22NTD4 lXB4GR26AK28P4YkOicemIPreR U+PHRhYmxlIHdpZHRoPScxMDAl MzWkrXccJV6eDs0iQXNbZFGy tQjphENsDhDzr8onXQNwFZklHN 8ikKznB5GdcVS4FQHsj5p2Ap63 D25dT4OzuDJ+IPSkaNV5jLT4 iT6gWhOfSsQ0OKwdU489QgZqvN IaXngwj9huu1ocuPg1QmE1CENr pcRkuJobYPW3x5UsQq13Y09x IHdpZHRoPSIxNSUiIHZhbGlnbj 4mpX1nAz6+DZQubAA2kZP9sP5p BhZfJvT4KQfaD461TvCtsNFv Igflt1pvo6avcYq1FwQbQJKhpj BurWwcHEZ6y9GiAa96Y5XwaOwp c4ZrLzm1ez85tRQrh6G6bJF8 H8VvBNUnnvyaaEJmnGcbVZ6oPG PotvwlFSAotX5iNLGjV8b2MtNc FuF2OUeaP5DxunI1ALOyxTOi RAkzSSO2O33qx0X7XBNkXGAzBS L8aUS2jD7rzPkwccmaqVMkgFiv lzPsnDigTOowYTndC925GHUq uBjmHPOsvQ7uEXUofPKyiEiuRJ 2eSSOpjsftJvPUEOadRV6TDcVA CBQ0L5JjTne7GUGwyRwjXN9l uESuNIqxLi8yjSghpFziJF1tDN CqjfqpCTBsmS9aSUYngTRgyBxm UQ7vODHvcbhoc113ZiSaMEV1 FHFwaOAmT2UqdD4tSnDlBZDtNT JjS5TdeMXqGPshD438CYzrOtI8 BYPjfoOeV1IiEAKwjPhcEsX7 v9C8Aw2sRw3aGD7iLLxbDF66RU 23pWTrc7J8jXJ3S3SbBDVvvvdg vpylwRE0GDMwONWueQ15uAXe NPmhVx5cv0O5f446JDFfXBVmlJ 62Zq0gyYvrKCKqoZZBxS3djopt k2aaiejlEwTyQAHwKTp2NWm7 SGGxiGjnMcTxQMX6PhA6TTT8mK TplV6wgZmnppzwlR2hZvt+Mzkg QTUrxsS8I4TvBjs8XGPbtJgm EV6hnILqBLliHa6dhAqryLkaOV 0mJJIkayhzFHKsbW5pBLZopNSo xHfoVN7yCEHzavshc895UsEa UBZ6TWLgyGBdC8MtsL2cEjAoSH HnRQFkV2NgzHVdDPbrY143VWqp KzC6PLUmnxXtL2NqGXMrsDwd XtJ3m8W4Gg3PWB2fyBG3F8GyIf a9UXJexGmzIA9nfLViPVepUq8n mBotkVyqAX1aXOGdtscsVXLu qU5xDYYwbUBpoXayVF2jVSHgat img417GpOpINP0UPJunYRuC9Qi hU9zGbMkHEVvXWMlT6GohGEr HRebK302NTbnYxH5XLEnfpFwH9 QwGJBkpLemHoM8q7P8Gt4PfQPf G7EzP8z7N4PvRmfarFD+PC90 VERfOF09tGIwuHRtx9pdwMr5Ud AaBZBoYXL4nLlaPVwbm6XpWCRi I43qdEAfz0Q5CCPilDpyuLDn JxNmrHR5gK7iCKdygbnoi3eqtd bgHrycc2kyeg45gB01E13yWOep JERmSHNcWRXmUUCxyFmjgs0t aF5jTd5+FHFaaGC9oRJ9jO8dUb NvVlB1DZfvY400HdOheAQdMcqs o2tha1zixYq9KhPvXWTzvuUg rUmjMJN2v1TrDc69M06lCWzzNY ClWWWdFKTuXGPwpNndzr2aiQ7c Ii8+OE0dd9gtzt28dP46lYD+ AXNfLYO5eZjoVLhwWHUpsC6oEE wzHqP5HPRlJaUujG85hRZiVCod Ea0ukDhquDceFI4yGZRxiomv v657GkZjq8vfXGUktXZvOAoyYL Y9C27fl4C2TXShADGjFJN3rRM6 kA0tqCsgrhctiVLufTelniSf lNogAIekNLtiW537GCLkoFbuEq NtwUUgE5wecpLNHC9kRffaoID+ XZHpROY0nWbjWScaCHSvmA5n SHJzE2p8WmJfMyG2HOlcG1Qbhr I4FCEdkQLbPXYfxCLCbR1oomae i5zulyqmGxUtLODqVCg6PEx0 MVFyxBdiPwBmPYS5BoJ3CVT3gQ TmoD5qfYwcahyykW1yNct+RklO OjwvdGQ+EDXzBCY1iIuaBDpz TZJiqG4uZCJzZ1h4EcFaQdW1CB voE1UctmN9DNJztYXnLACjpHVP qP3ffrbjo0yjqdnkDgMdQKLc WHz0MQw8CKWehYpxPlLlXST5Cg W3XLB9jVNlqC6nfGvwyhstwV5d Oyc+TVJOOjwvdGQ+PHRkIHN0 kPgkGPawCEKmzC4bBJRnJ8r9Dp KkFhO7ZLbvH7KodiT0XIHefZMr YWPbnFDWaZ0tylmog5zkhagu JgQiRPKtCPb1ADi1FHHyoHpqCv XvKIT3QmO4HVM1tGLjmZ4gcWzs xbhnlF1lAhz+TRU8NOJ1RZ01 QT34H9YuFzcqcHWahHD+PHRhYm xlIHdpZHRoPScxMDAlJyBzdHls QU7rXj7uZIRiFSXjzWcuySJy OiBj (more content not included)... Normal [facility] Auto Diffon 07-28-2020 Basophils/100 WBC (Bld) 0.5 % Normal 0.0-2.0 [facility] Comment on above: Order Comment: Order Added by Discern Expert. Performed By: #### 1 [id number], 28922344, 2109304, 4349529, 3919062, 6220253, 93171516 #### [facility] [address] [place] [address] Basophils/Leukocytes Auto (Bld) [Pure # fraction] 0.1 E9/L Normal 0.0-0.2 [facility] Comment on above: Order Comment: Order Added by Discern Expert. Performed By: #### 1 [id number], 69409600, 1769232, 1908181, 8555273, 5308252, 11976108 #### [facility] [address] [place] [address] Eosinophils/100 WBC (Bld) 0.1 % Normal 0.0-8.0 [facility] Comment on above: Order Comment: Order Added by Discern Expert. Performed By: #### 1 0563037, 21467824, 5172211, 8946017, 6149169, 8835518, 02147250 #### [facility] [address] [place] [address] Eosinophils/Leukocytes Auto (Bld) [Pure # fraction] 0.0 E9/L Normal 0.0-0.5 [facility] Comment on above: Order Comment: Order Added by Discern Expert. Performed By: #### 1 7545982, 00313916, 9807490, 1050783, 3699544, 7407056, 01331275 #### [facility] [address] [place] [address] Lymphocytes/100 WBC (Bld) 13.7 % Low 14.0-50.0 [facility] Comment on above: Order Comment: Order Added by Discern Expert. Performed By: #### 1 5456953, 34848768, 6115640, 0362329, 3327872, 4284463, 45810812 #### [facility] [address] [place] [address] Lymphocytes/Leukocytes Auto (Bld) [Pure # fraction] 1.5 E9/L Normal 1.0-4.0 [facility] Comment on above: Order Comment: Order Added by Discern Expert. Performed By: #### 1 6420823, 17608021, 4139601, 9446292, 8655155, 5547194, 13969327 #### [facility] [address] [place] [address] Monocytes/100 WBC (Bld) 2.3 % Low 4.0-14.0 [facility] Comment on above: Order Comment: Order Added by Discern Expert. Performed By: #### 1 4389113, 54435136, 7273724, 5509190, 0914146, 8391628, 91605593 #### [facility] [address] [place] [address] Monocytes/Leukocytes Auto (Bld) [Pure # fraction] 0.2 E9/L Normal 0.2-1.0 [facility] Comment on above: Order Comment: Order Added by Discern Expert. Performed By: #### 1 2130581, 74542679, 5419232, 8205043, 2239456, 4665929, 30860857 #### [facility] [address] [place] [address] Neutrophils/100 WBC (Bld) 83.4 % High 36.0-75.0 [facility] Comment on above: Order Comment: Order Added by Discern Expert. Performed By: #### 1 3337825, 31844866, 8636721, 7179223, 8453173, 3378488, 34787648 #### [facility] [address] [place] [address] Neutrophils/Leukocytes Auto (Bld) [Pure # fraction] 8.8 E9/L High 2.0-7.5 [facility] Comment on above: Order Comment: Order Added by Discern Expert. Performed By: #### 1 6959521, 89274273, 2073254, 3193925, 0307505, 9515744, 74862841 #### [facility] [address] [place] [address] [facility] 07-28-2020 Creatinine [Mass/Vol] 1.0 mg/dL Normal 0.5-1.3 [facility] Comment on above: Performed By: #### 1 1255040, 35589175, 7831637, 8058088, 8350180, 0380479, 19328240 #### [facility] [address] [place] [address] Urea nitrogen [Mass/Vol] 13 mg/dL Normal 5-21 [facility] Comment on above: Performed By: #### 1 7421822, 34512332, 7309388, 1896161, 2075122, 8290479, 49736117 #### [facility] [address] [place] [address] Urea nitrogen/Creatinine [Mass ratio] 13 No Units Normal 10-20 [facility] Comment on above: Performed By: #### 1 2499265, 38514749, 7715626, 9564201, 2423203, 2398996, 66295704 #### [facility] [address] [place] [address] Anion gap [Moles/Vol] 15 mmol/L Normal 6-16 [facility] Comment on above: Performed By: #### 1 6943968, 48727115, 9123545, 2280443, 3955572, 5067086, 45237363 #### [facility] [address] [place] [address] Calcium [Mass/Vol] 7.9 mg/dL Low 8.9-11.1 [facility] Comment on above: Performed By: #### 1 6620548, 60915839, 4735567, 3283349, 6903352, 6442702, 56988297 #### [facility] [address] [place] [address] Chloride [Moles/Vol] 98 mmol/L Low 101-111 [facility] Comment on above: Performed By: #### 1 4609172, 03500285, 4186589, 2919258, 9282071, 7603930, 08703955 #### [facility] [address] [place] [address] CO2 [Moles/Vol] 25 mmol/L Normal 21-31 [facility] Comment on above: Performed By: #### 1 8156243, 83858430, 3301045, 9955411, 9650736, 6986472, 73741362 #### [facility] [address] [place] [address] Glucose [Mass/Vol] 104 mg/dL Normal 55-199 [facility] Comment on above: Result Comment: If t his glucose result represents a fasting glucose, interpretation should refer to the following reference range: 55-99 mg/dL Performed By: #### 1 8439375, 47618246, 1805592, 9142864, 5487191, 7402884, 27642070 #### [facility] [address] [place] [address] Potassium [Moles/Vol] 2.9 mmol/L Low 3.5-5.3 [facility] Comment on above: Performed By: #### 1 9320539, 39734844, 3201791, 9383367, 5703675, 3400007, 39355357 #### [facility] [address] [place] [address] Sodium [Moles/Vol] 135 mmol/L Normal 135-145 [facility] Comment on above: Performed By: #### 1 0811652, 59960621, 7638043, 1043229, 2291894, 4920957, 76402132 #### [facility] [address] [place] [address] CBC w/ Auto Diffon Erythrocyte distribution width (RBC) [Ratio] 15.2 % High 10.9-14.2 [facility] Comment on above: Performed By: #### 1 8302482, 06167752, 2200329, 6738848, 1048115, 1914727, 54170142 #### [facility] [address] [place] [address] Hematocrit (Bld) [Volume fraction] 36.7 % Normal 34.0-46.0 [facility] Comment on above: Performed By: #### 1 5083254, 89689382, 7273714, 3031794, 5789951, 9635431, 45599780 #### [facility] [address] [place] [address] Hemoglobin (Bld) [Mass/Vol] 12.3 g/dL Normal 12.0-16.0 [facility] Comment on above: Performed By: #### 1 8033495, 09002726, 5039247, 8445191, 2557920, 2218187, 92134569 #### [facility] [address] [place] [address] MCH (RBC) [Entitic mass] 28.1 pg Normal 27.0-34.0 [facility] Comment on above: Performed By: #### 1 7609407, 09117571, 3643977, 2330110, 6308058, 0619459, 33951350 #### [facility] [address] [place] [address] MCHC (RBC) [Mass/Vol] 33.4 g/dL Normal 31.4-36.0 [facility] Comment on above: Performed By: #### 1 7562924, 66348049, 5321669, 2093983, 1057907, 9161691, 75527341 #### [facility] [address] [place] [address] MCV (RBC) [Entitic vol] 84.1 fL Normal 80.0-100.0 [facility] Comment on above: Performed By: #### 1 2997636, 65496182, 6849278, 6940726, 9860530, 9973487, 28686375 #### [facility] [address] [place] [address] Platelet mean volume (Bld) [Entitic vol] 6.6 fL Normal 6.4-10.8 [facility] Comment on above: Performed By: #### 1 2087510, 56992390, 1802542, 9835646, 8002226, 8108444, 56489565 #### [facility] [address] [place] [address] Platelets (Bld) [#/Vol] 203.0 E9/L Normal 150.0-500.0 [facility] Comment on above: Result Comment: Plat elet count verified using smear estimate Slide reviewed by [email or web address]. Performed By: #### 1 5070816, 44535772, 0147214, 2533169, 6708933, 3187461, 76662133 #### [facility] [address] [place] [address] RBC (Bld) [#/Vol] 4.4 E12/L Normal 4.3-5.9 [facility] Comment on above: Performed By: #### 1 0507034, 78834950, 6944796, 5791975, 6657229, 1936491, 24580921 #### [facility] [address] [place] [address] WBC corrected for nucl RBC Auto (Bld) [#/Vol] 10.6 E9/L Normal 4.0-11.0 [facility] Comment on above: Performed By: #### 1 5148068, 34388277, 1993531, 0649196, 0061986, 3743610, 61628485 #### [facility] [address] [place] [address] CTA Cheston 07-28-2020 CTA Chest Exam Date/Time: [...] 370 Contrast amount in ml's: 75 Normal [facility] D-Dimeron 07-28-2020 Fibrin D-dimer FEU (PPP) [Mass/Vol] 1122 ng/mL Abnormal 215-500 [facility] Comment on above: Result Comment: Resu [...] infections Liver cirrhosis Performed By: #### 1 6262568, 10278987, 7612650, 6388116, 6370295, 9436079, 96153262 #### [facility] [address] [place] [address] Discharge Instructionson Discharge Instructions [id number] Normal [facility] ED Clinical Summaryon 2020 ED Clinical Summary (Inserted Image. Alaina ble to display) [address] [address] ED Clinical Summary Person Information Name: DELICIA SERRANO [facility] Age: 40 Years : 1980 Sex: Female Language: Vietnamese PCP: CORRINE ORDAZ MD Marital Status: Single [...] 07/28/2020 02:18:35 07/28/2020 02:18:35 07/28/2020 02:18:35 ADDRESS: [facility] [address] [place] [id number] PHYS DOC NOTES: MEDICAL INFORMATION: Prescriptions Given: PATIENT EDUCATION INFORMATION: Instructions: COVID-19 Frequently Asked Questions Follow up: With: Address: When: CORRINE ORDAZ [address] [place] [address] [place], [place] [phone] Business ([employer] In 3 days 07/31/2020 Comments: Call your doctor Thursday to schedule for monoclonal atibodies. return if breathing worsens as discussed. monitor your oxygen level at home as discussed DIAGNOSIS: 1:Upper respiratory infection; 2:Pneumonia due to COVID-19 virus Normal [facility] ED Note-Physicianon 07-29-19 ED Note-Physician Basic [...] Lymph Auto: 13.7 % Low (07/27/20 22:10:00) [place] Auto: 2.3 % Low (07/27/20 22:10:00) Eos Auto: 0.1 % (07/27/20:10:00) Basophil Auto: 0.5 % (07/27/20 22:10:00) Neutro Absolute: 8.8 E9/L High (07/27/20 22:10:00) Lymph Absolute: 1.5 E9/L (07/27/20 22:10:00) [place]well Absolute: 0.2 E9/L (07/27/20 22:10:00) Eos Absolute: 0 E9/L (07/27/20 22:10:00) Basophil Absolute: 0.1 E9/L (07/27/20:10:00) PT: 13.7 second(s) High (07/27/20 22:10:00) INR: 1.2 (07/27/20 22:10:00) PTT: 21.2 second(s) Low (07/27/20:10:00) D-Dimer: 1122 ng/mL Critical (07/27/20 22:10:00) Glucose Lvl: 104 mg/dL (07/27/20 22:10:00) BUN: 13 mg/dL (07/27/20 22:10:00) Creatinine: 1 mg/dL (07/27/20 22:10:00) eGFR: >60 (07/27/20 22:10:00) eGFR AA: >60 (07/27/20 22:10:00) BUN/Creat Ratio: 13 (07/27/20 22:10:00) Sodium Lvl: 135 mmol/L (07/27/20 22:10:00) Potassium Lvl: 2.9 mmol/L Low (07/27/20 22:10:00) Chloride: 98 mmol/L Low (07/27/20 22:10:00) CO2: 25 mmol/L (07/27/20 22:10:00) AGAP: 15 mEq/L (07/27/20 22:10:00) Calcium Lvl: 7.9 mg/dL Low (07/27/20 22:10:00) Troponin: 3.5 pg/mL Low (07/27/20 22:10:00) Rapid COVID Ag: Detected Critical (07/27/20 21:55:00) Rapid COV Int NEG Ctl: Pass (07/27/20:55:00) Rapid COV Int POS Ctl: Pass (07/27/20:55:00) First Test: Unknown (07/27/20 21:55:00) Employed in Healthcare: NO (07/27/20:55:00) Symptomatic as defined by CDC: YES (07/27/20 21:55:00) Hospitalized?: NO (07/27/20 21:55:00) ICU: NO (07/27/20:55:00) Resides in a Congregate Care Setting: NO (07/27/20 21:55:00) ?: Unknown (07/27/20 21:55:00) Diagnostic Results XR Chest Single View * Preliminary * 07/28/20 00:51:58 POSITIVE: diffuse mild infiltrat (more content not included)... Normal [facility] Comment on above: Result Comment: Elec tronically Signed By: Nestor PIMENTEL, Felipe\.br\Date and Time Signed: 07/28/20 00:53 EDT ED Patient Summaryon 021 ED Patient Summary (Inserted Image. Alaina ble to display) [address] [address] Patient Discharge Instructions Person Information Name: DELICIA SERRANO Age: 40 Years Arrival Date: 07/27/2020 21:19:07 Discharge Diagnosis: 1:Upper respiratory infection; 2:Pneumonia due to COVID-19 virus Primary Care Physician: CORRINE ORDAZ MD Provider Information Primary Provider: Felipe Baez MD [employer] Painter:None The exam and treatment you received in the Emergency Department were for an urgent problem and are not intended as complete care. It is important that you follow up with a doctor, nurse practitioner, or physician?s licensed sales assistant for ongoing care. If your symptoms [...] Follow-up Instructions: With: Address: When: CORRINE ORDAZ [address] [place] [address] [phone] Business (1) In 3 days 07/31/2020 Comments: [...] opioids can be used to help relieve dcyiucob-ts-arhoiy pain and are often prescribed following a [...] of opioids (more content not included)... Normal [facility] PT & PTTon 07-28-2020 aPTT Coag (PPP) [Time] 21.2 second(s) Low 25.1-36.5 [facility] Comment on above: Result Comment: Hepa rin therapeutic range (represented by Anti-Factor Xa activity of 0.2 - 0.4 U/mL) corresponds to PTT of 56.6 - 109.0 sec. Performed By: #### 1 [id number], [id number], 9276912, 8531535, [id number], [id number] #### [facility] [address] [place] [address] INR Coag (PPP) [Relative time] 1.2 {INR} Invalid Interpretation Code [facility] Comment on above: Result Comment: INR results are specifically intended to assess patients stabilized on long-term Anticoagulation therapy suggested INR?s ?Less Intensive Anticoagulation? 2.0 ? 3.0 Conventional Range 3.0 ? 4.5 Performed By: #### 1 [id number], [id number], [id number], 2954312, 7568420, 2593799, [id number] #### [facility] [address] [place] [address] PT Coag (PPP) [Time] 13.7 second(s) High 10.2-12.9 [facility] Comment on above: Performed By: #### 1 [id number], [id number], 8384490, 2158875, 0773906, 4591678, [id number] #### [facility] [address] [place] [address] RAD - Preliminary Cat Scan R eporton 07-28-2020 RAD - Preliminary Cat Scan Report [id number]:127 Normal [facility] Rapid COVID Antigen ([facility])on 07-28-2020 Rapid COV Int NEG Ctl Pass Normal [facility] Comment on above: Performed By: #### 2 [id number] #### [facility] [address] [place] [address] Rapid COV Int POS Ctl Pass Normal [facility] Comment on above: Performed By: #### 2 [id number] #### [facility] [address] [place] [address] SARS-CoV-2 (COVID-19) RNA TONY+probe Ql (Unsp spec) Detected Abnormal Not Detected [facility] Comment on above: Result Comment: Resu lts Called To [facility] By [id number] And Read Back For Confirmation On 07/27/2020 22:20:45 EDT. Results faxed to [facility]. The Human [employer] Veritor? System for Rapid Detection of SARS-CoV-2 [...] other viruses or pathogens; and, in the [facility], this test is only authorized for the duration of the declaration that circumstances exist justifying the authorization of emergency use of in vitro diagnostics for detection and/or diagnosis of the virus that causes COVID-19 under Section 564(b)(1) of the Act, 21 U.S.C. ? 360bbb-3(b)(1), unless the authorization is terminated or revoked sooner. Performed By: #### 2 [id number] #### [facility] [address] [place] [address] Troponin 0 Hr.on 07-28-2020 Troponin I.cardiac [Mass/Vol] 3.50 pg/mL Low 10.10-27.10 [facility] Comment on above: Result Comment: The 95% CI (Confidence Interval) PPV (Positive Predictive Value) for myocardial infarction in females is 38 pg/mL, in males 51 pg/mL. The results should be used in conjunction with clinical conditions of myocardial infarction. (Access High Sensitivity Troponin I Instructions For Use, Iftikhar Callaway, October 2017) Performed By: #### 1 [id number], [id number], [id number], 5627520, 3902248, 2812900, [id number] #### [facility] [address] [place] [address] XR Chest Single Viewon 07-28 XR Chest [...] MD Transcribed by: KATHY Technologist: STARLA Thompson [facility] eGFRon 07-28-2020 GFR/1.73 sq M.predicted among blacks MDRD (S/P/Bld) [Vol rate/Area] mL/min/{1.73_m2} Normal >=59 [facility] Comment on above: Order Comment: Order added by Discern Expert. Result Comment: eGFR is race adjusted. AA=. Performed By: #### 1 [id number], [id number], 6868823, 4134259, 4965223, 2966891, [id number] #### [facility] [address] [place] [address] GFR/1.73 sq M.predicted among non-blacks MDRD (S/P/Bld) [Vol rate/Area] mL/min/{1.73_m2} Normal >=59 [facility] Comment on above: Order Comment: Order added by Discern Expert. 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 Kidney failure is indicated at less than 15 mL/min/1.73m2. Performed By: #### 1 [id number], 94626807, 3357443, 4249261, 2012884, 0767953, [id number] #### [facility] [address] [place] [address] Consent for Treatmenton 07-14 Consent for Treatment [id number]:127 Normal [facility] Physician Orderon 07-27-2020 Physician Order [id number]#[id number]:127 Normal [facility] Rapid COVID Antigen ([facility])on 07-27-2020 Employed in Healthcare NO Normal [facility] Comment on above: Performed By: #### 2 [id number] #### [facility] [address] [place] [address] First Test Unknown [facility] Comment on above: Performed By: #### 2 [id number] #### [facility] [address] [place] [address] Hospitalized? NO Normal [facility] Comment on above: Performed By: #### 2 [id number] #### [facility] [address] [id number] ICU NO [facility] Comment on above: Performed By: #### 2 [id number] #### [facility] [address] [id number] ? Unknown [facility] Comment on above: Performed By: #### 2 [id number] #### [facility] [address] [id number] Resides in a Congregate Care Setting NO [facility] Comment on above: Performed By: #### 2 [id number] #### [facility] [address] [place] [address] Symptomatic as defined by CDC YES Normal [facility] Comment on above: Performed By: #### 2 [id number] #### [facility] [address] [place] [address] Vital Signs Date Time Vital Sign Value Performing Clinician Facility 02-23-2024 14:29-0500 Body height 157.5 cm Disha Lowe PA Work Phone: [facility] 02-23-2024 14:29-0500 Body mass index (BMI) [Ratio] 34.93 kg/m2 Disha Lowe PA Work Phone: [facility] 02-23-2024 14:29-0500 Body weight 86.64 kg Disha Lowe PA Work Phone: [facility] 02-23-2024 14:29-0500 Diastolic blood pressure 88 mm[Hg] Disha Lowe PA Work Phone: [facility] 02-23-2024 14:29-0500 Systolic blood pressure 120 mm[Hg] Disha Lowe PA Work Phone: [facility] 01-06-2024 13:20-0400 Body mass index (BMI) [Ratio] 32.74 kg/m2 Tobin Baldwin MD Work Phone: [facility] 01-06-2024 13:20-0400 Body weight 81.19 kg Tobin Baldwin MD Work Phone: [facility] 01-06-2024 13:20-0400 Diastolic blood pressure 78 mm[Hg] Tobin Baldwin MD Work Phone: [facility] 01-06-2024 13:20-0400 Systolic blood pressure 128 mm[Hg] Tobin Baldwin MD Work Phone: [facility] 12-31-2023 14:40-0400 Body height 157.5 cm Disha Lowe PA Work Phone: [facility] 12-31-2023 14:40-0400 Body mass index (BMI) [Ratio] 35.67 kg/m2 Disha Lowe PA Work Phone: [facility] 12-31-2023 14:40-0400 Body weight 88.45 kg Disha Lowe PA Work Phone: [facility] 12-31-2023 14:40-0400 Diastolic blood pressure 78 mm[Hg] Dihsa Lowe PA Work Phone: [facility] 12-31-2023 14:40-0400 Systolic blood pressure 118 mm[Hg] Disha Lowe PA Work Phone: [facility] 12-02-2023 12:44-0400 Body height 157.5 cm Disha Lowe PA Work Phone: [facility] 12-02-2023 12:44-0400 Body mass index (BMI) [Ratio] 34.39 kg/m2 Disha Lowe PA Work Phone: [facility] 12-02-2023 12:44-0400 Body weight 85.28 kg Disha Lowe PA Work Phone: [facility] 12-02-2023 12:44-0400 Diastolic blood pressure 64 mm[Hg] Disha Lowe PA Work Phone: [facility] 12-02-2023 12:44-0400 Systolic blood pressure 108 mm[Hg] Disha Lowe PA Work Phone: [facility] 03-26-2023 10:10-0500 Diastolic blood pressure 70 mm[Hg] MD Boyd Herrera Work Phone: [facility] 03-26-2023 10:10-0500 Heart rate 71 /min MD Boyd Herrera Work Phone: [facility] 03-26-2023 10:10-0500 Respiratory rate 16 /min MD Boyd Herrera Work Phone: [facility] 03-26-2023 10:10-0500 SaO2% (BldA) [Mass fraction] 96 % MD Boyd Herrera Work Phone: [facility] 03-26-2023 10:10-0500 Systolic blood pressure 118 mm[Hg] MD Boyd Herrera Work Phone: [facility] 03-26-2023 08:30-0500 Body height 157.48 cm MD Boyd Herrera Work Phone: [facility] 03-26-2023 08:30-0500 Body weight 99.79 kg MD Boyd Herrera Work Phone: [facility] 02-20-2023 10:30-0500 Body weight 105.23 kg MD Boyd Herrera Work Phone: [facility] 02-20-2023 10:30-0500 Diastolic blood pressure 81 mm[Hg] MD Boyd Herrera Work Phone: [facility] 02-20-2023 10:30-0500 Respiratory rate 16 /min MD Boyd Herrera Work Phone: [facility] 02-20-2023 10:30-0500 SaO2% (BldA) [Mass fraction] 98 % MD Boyd Herrera Work Phone: [facility] 02-20-2023 10:30-0500 Systolic blood pressure 126 mm[Hg] MD Boyd Herrera Work Phone: [facility] 11-20-2022 10:35-0400 Body temperature 97.8 [degF] MD Boyd Herrera Work Phone: [facility] 11-20-2022 10:35-0400 Body weight 107.5 kg MD Boyd Herrera Work Phone: [facility] 11-20-2022 10:35-0400 Diastolic blood pressure 74 mm[Hg] MD Boyd Herrera Work Phone: [facility] 11-20-2022 10:35-0400 Heart rate 84 /min MD Boyd Herrera Work Phone: [facility] 11-20-2022 10:35-0400 Respiratory rate 16 /min MD Boyd Herrera Work Phone: [facility] 11-20-2022 10:35-0400 SaO2% (BldA) [Mass fraction] 98 % MD Boyd Herrera Work Phone: [facility] 11-20-2022 10:35-0400 Systolic blood pressure 106 mm[Hg] MD Boyd Herrera Work Phone: [facility] 11-04-2022 13:50-0400 Body temperature 97.8 [degF] MD Boyd Herrera Work Phone: [facility] 11-04-2022 13:50-0400 Body weight 109.31 kg MD Boyd Herrera Work Phone: [facility] 11-04-2022 13:50-0400 Diastolic blood pressure 75 mm[Hg] MD Boyd Herrera Work Phone: [facility] 11-04-2022 13:50-0400 Heart rate 104 /min MD Boyd Herrera Work Phone: [facility] 11-04-2022 13:50-0400 Respiratory rate 16 /min MD Boyd Herrera Work Phone: [facility] 11-04-2022 13:50-0400 SaO2% (BldA) [Mass fraction] 98 % MD Boyd Herrera Work Phone: [facility] 11-04-2022 13:50-0400 Systolic blood pressure 112 mm[Hg] MD Boyd Herrera Work Phone: [facility] 11-04-2022 13:30-0400 Body height 157.48 cm MD Boyd Herrera Work Phone: [facility] Encounters Encounter Date Encounter Type Care Provider Facility Start: 03-07-2024 End: 03-10-2024 Refill Cely Goodwin MANUFACTURING TEST ENGINEER Work Phone: [facility] Comment on above: Insomnia, unspecifie d type Start: 03-03-2024 ambulatory Prachi Demboske Facility:[facility] Start: 03-01-2024 ambulatory YVETTE ROBLERO [facility] Start: 02-23-2024 End: 02-23-2024 Office outpatient visit 15 minutes Disha Lowe PA Work Phone: [facility] Comment on above: Migraine without sta tus migrainosus, not intractable, unspecified migraine type (CMS/HCC) (Primary Dx); Transient alteration of awareness; Vertigo; Syncope, unspecified syncope type; HILARY (obstructive sleep apnea) Start: 02-23-2024 End: 02-23-2024 ambulatory DISHA LOWE Not Available Start: 02-23-2024 End: 02-23-2024 Bamboo flowsheet Disha Lowe PA Work Phone: [facility] Start: 02-23-2024 End: 02-23-2024 Bamboo flowsheet Disha Lowe PA Work Phone: [facility] Start: 02-19-2024 End: 02-19-2024 ambulatory [facility] Start: 02-10-2024 End: 02-14-2024 External Result Encounter Nicki Duran NP Work Phone: [facility] External Department Unsolicited Start: 02-10-2024 End: 02-14-2024 External Result Encounter Nicki Duran MANUFACTURING TEST ENGINEER Work Phone: [facility] External Department Unsolicited Start: 02-01-2024 End: 02-01-2024 ambulatory TOBIN BALDWIN Not Available Start: 01-29-2024 End: 01-29-2024 ambulatory [facility] Start: 01-28-2024 ambulatory ESTRELLITA BALDEV [facility] Start: 01-25-2024 End: 01-25-2024 ambulatory DISHA LOWE Not Available Start: 01-19-2024 End: 01-19-2024 [facility] Start: 01-18-2024 End: 01-18-2024 ambulatory DISHA LOWE Not Available Start: 01-06-2024 End: 01-06-2024 Bamjose Baldwin MD Work Phone: [facility] Start: 01-06-2024 End: 01-06-2024 Bamboo flowsheet Tobin Baldwin MD Work Phone: [facility] Start: 01-06-2024 End: 01-06-2024 Office outpatient visit 25 minutes Tobin Baldwin MD Work Phone: [facility] Comment on above: Postcoital bleeding (Primary Dx); Urinary, incontinence, stress female; Screening for HPV (human papillomavirus); Intrauterine device surveillance; Other screening mammogram; Intrauterine contraceptive device threads lost, initial encounter Start: 01-06-2024 End: 01-06-2024 ambulatory TOBIN BALDWIN Not Available Start: 12-31-2023 End: 12-31-2023 ambulatory DISHA DILLARD Not Available Start: 12-31-2023 End: 12-31-2023 Office outpatient visit 25 minutes Disha Dillard PA Work Phone: [facility] Comment on above: Migraine without sta tus migrainosus, not intractable, unspecified migraine type (CMS/HCC) (Primary Dx); Chronic tension-type headache, not intractable; Transient alteration of awareness; Vertigo; Myalgia; Degenerative disc disease, cervical; Radiculopathy of cervical region Start: 12-31-2023 End: 12-31-2023 Bamboo flowsheet Disha Dillard PA Work Phone: [facility] Start: 12-31-2023 End: 12-31-2023 Bamboo flowsheet Disha Dillard PA Work Phone: [facility] Start: 12-30-2023 End: 12-30-2023 [facility] Start: 12-18-2023 End: 12-18-2023 [facility] Start: 12-15-2023 ambulatory YVETTE ROBLERO [facility] Start: 12-02-2023 End: 12-02-2023 Bamboo flowsheet Disha Dillard PA Work Phone: [facility] Start: 12-02-2023 End: 12-02-2023 Bamboo flowsheet Disha VICTORIA Work Phone: [facility] Start: 12-02-2023 End: 12-02-2023 Office outpatient visit 25 minutes Disha VICTORIA Work Phone: [facility] Comment on above: Transient alteration of awareness (Primary Dx); Vertigo; Chronic tension-type headache, not intractable; Syncope, unspecified syncope type Start: 12-02-2023 End: 12-02-2023 ambulatory DISHA DILLARD Not Available Start: 10-27-2023 End: 10-27-2023 ambulatory [address]LLITA [facility] Start: 10-06-2023 End: 10-06-2023 ambulatory DISHA DILLARD Not Available Start: 09-30-2023 ambulatory ESTRELLITA DE PAZ [facility] Start: 09-21-2023 ambulatory ESTRELLITA DE PAZ [facility] Start: 09-21-2023 End: 09-21-2023 ambulatory [facility] Start: 08-11-2023 End: 08-11-2023 ambulatory DISHA DILLARD Not Available Start: 08-06-2023 End: 08-06-2023 ambulatory [facility] Start: 07-09-2023 ambulatory ESTRELLITA DE PAZ [facility] Start: 06-30-2023 ambulatory ESTRELLITA DE PAZ [facility] Start: 06-30-2023 End: 06-30-2023 ambulatory [facility] Start: 06-09-2023 End: 06-09-2023 ambulatory [facility] Start: 06-02-2023 End: 06-02-2023 ambulatory [facility] Start: 06-02-2023 End: 06-02-2023 ambulatory [facility] Start: 05-19-2023 End: 05-19-2023 ambulatory [facility] Start: 04-21-2023 ambulatory ESTRELLITA DE PAZ [facility] Start: 04-21-2023 End: 04-21-2023 [facility] Start: 03-26-2023 End: 03-26-2023 Patient encounter procedure MD Boyd Herrera Work Phone: [facility] [place] Work Phone: Start: 03-26-2023 End: 03-26-2023 ambulatory MD Boyd Herrera Work Phone: [facility] Work Phone: Start: 03-24-2023 ambulatory CARLOS SHAINA [facility] Start: 03-23-2023 End: 03-23-2023 [facility] Start: 02-20-2023 End: 02-20-2023 ambulatory MD Boyd Herrera Work Phone: [facility] Work Phone: Start: 02-20-2023 End: 02-20-2023 Registered Recurring MD Boyd Herrera Work Phone: [facility] Work Phone: Start: 02-11-2023 Registered Recurring MD Max Herrera Work Phone: [facility] Work Phone: Start: 02-11-2023 End: 02-11-2023 ambulatory MD Boyd Herrera Work Phone: [facility] Work Phone: Start: 02-11-2023 End: 02-11-2023 Patient encounter procedure MD Boyd Herrera Work Phone: [facility] [place] Work Phone: Start: 11-27-2022 End: 11-27-2022 ambulatory MD Boyd Herrera Work Phone: [facility] Work Phone: Start: 11-27-2022 End: 11-27-2022 Patient encounter procedure MD Boyd Herrera Work Phone: [facility] [place] Work Phone: Start: 11-20-2022 ambulatory MD Boyd cesar Work Phone: [facility] Work Phone: Start: 11-20-2022 Registered Recurring MD Max Herrera Work Phone: [facility] Work Phone: Start: 11-04-2022 End: 11-04-2022 ambulatory MD Boyd Herrera Work Phone: [facility] Work Phone: Start: 11-04-2022 End: 11-04-2022 Registered Recurring MD Boyd [facility] Start: 07-31-2022 ambulatory JENNY REIS Facility: [facility] Start: 06-28-2022 End: 06-29-2022 ambulatory JENNY REIS Facility:[facility] Start: 05-08-2022 ambulatory JENNYEVERETT REIS Facility: [facility] Start: 12-12-2021 ambulatory JENNY REIS Facility: [facility] Start: 11-21-2021 End: 11-21-2021 Patient encounter procedure MD Boyd Herrera Work Phone: [facility] Start: 08-12-2021 End: 08-12-2021 ambulatory JACEK BRIZUELA . Facility:[facility] Procedures Date Procedure Procedure Detail Performing Clinician Start: 02-10-2024 Complete blood count with white cell differential, automated Nicki Duran MANUFACTURING TEST ENGINEER Work Phone: Start: 02-10-2024 Organic acid 1 quantitative Nicki Duran MANUFACTURING TEST ENGINEER Work Phone: Start: 02-01-2024 Mammography Nicki peralta MANUFACTURING TEST ENGINEER Work Phone: Start: 11-27-2022 XR pre/post mri xray MD Boyd Herrera Work Phone: Start: 11-27-2022 MRI of head MD Boyd Herrera Work Phone: Start: 11-27-2022 MRI of cervical spin e with contrast MD Boyd Herrera Work Phone: Start: 11-13-2022 Computed tomography of abdomen and pelvis with contrast MD Boyd Herrera Work Phone: Start: 11-13-2022 CT of thorax with contrast MD Boyd Herrera Work Phone: Start: 08-26-2022 Microscopic observat ion [Identifier] in Cervix by Cyto stain Disha VICTORIA Work Phone: Start: 06-26-2021 Mammography Disha Sawyer Work Phone: Plan of Treatment Date Care Activity Detail Author Start: 08-27-2027 Screening for malign ant neoplasm of cervix [facility] Start: 08-26-2025 Screening for malign ant neoplasm of cervix Pap Smear [facility] Start: 01-31-2025 Screening for malign ant neoplasm of breast Mammogram [facility] Start: 04-19-2024 End: 04-19-2024 Patient encounter procedure 04/19/2024 11:00 AM EST Office Visit [facility] [address] [place] [address] Disha Dillard PA [address] [place] [address] [facility] Start: 02-23-2024 End: 02-23-2024 Patient encounter procedure [facility] Comment on above: Arrived Start: 01-25-2024 End: 01-25-2024 Clinical Support 01/25/2024 11:45 AM EST Clinical Support [facility] [address] [place] [address] [facility] Start: 01-18-2024 End: 01-18-2024 Professional / ancillary services management 01/18/2024 2:00 PM EST Ancillary Procedure [facility] [address] [place] [id number] [facility] Start: 01-06-2024 End: 04-07-2025 DBT Breast - bilateral screening Bilateral screening mammogram with tomosynthesis Imaging Routine Other screening mammogram Expected: 01/06/2024, Expires: 04/07/2025 [facility] Comment on above: Expected: 01/06/2024 , Expires: 04/07/2025 Start: 01-06-2024 End: 01-05-2025 URINALYSIS, COMPLETE W/REFLEX TO CULTURE URINALYSIS, COMPLETE W/REFLEX TO CULTURE Lab Routine Urinary, incontinence, stress female Expected: 01/06/2024 (Approximate), Expires: 01/05/2025 [facility] Comment on above: Expected: 01/06/2024 (Approximate), Expires: 01/05/2025 Start: 01-06-2024 End: 01-06-2024 Patient encounter procedure 01/06/2024 1:15 PM EDT Office Visit [facility] [address] [facility] [address] [place] [id number] Tobin Baldwin MD [address] [facility] [address] [place] [address] [facility] Start: 01-04-2024 End: 01-03-2025 EEG awake or drowsy EEG awake or drowsy Neurology Routine Transient alteration of awareness Expected: 01/04/2024 (Approximate), Expires: 01/03/2025 [facility] Work Phone: Comment on above: Expected: 01/04/2024 (Approximate), Expires: 01/03/2025 Start: 12-31-2023 End: 12-31-2023 Patient encounter procedure 12/31/2023 2:20 PM EDT Office Visit [facility] [address] [place] [address] Disha Dillard PA [address] [place] [address] [facility] [address] [facility] Start: 12-02-2023 End: 12-01-2024 EEG awake or drowsy EEG awake or drowsy Neurology Routine Transient alteration of awareness Expected: 12/02/2023 (Approximate), Expires: 12/01/2024 [facility] Work Phone: Comment on above: Expected: 12/02/2023 (Approximate), Expires: 12/01/2024 Start: 12-02-2023 End: 12-01-2024 MR Brain WO and W contrast IV MR brain w and wo contrast routine Imaging Routine Transient alteration of awareness Vertigo Chronic tension-type headache, not intractable Syncope, unspecified syncope type Expected: 12/02/2023, Expires: 12/01/2024 [facility] Comment on above: Expected: 12/02/2023 , Expires: 12/01/2024 Start: 11-15-2023 Influenza vaccination Influenza Vacc ine (#1) [facility] Start: 03-26-2023 Aerobic Culture Aerobic Culture [facility] Start: 03-26-2023 Anaerobic Culture Anaerobic Culture [facility] Start: 03-26-2023 Microscopic observat ion [Identifier] in Unspecified specimen by Gram stain [facility] Start: 03-26-2023 [facility] Start: 03-26-2023 End: 03-26-2023 [facility] Start: 03-26-2023 Cerebrospinal fluid culture [facility] Start: 02-11-2023 End: 02-11-2023 [facility] Start: 06-26-2022 Screening for malign ant neoplasm of breast Mammogram [facility] Start: 11-21-2021 [facility] Work Phone: Albumin [Mass/volume ] in Cerebral spinal fluid [facility] Albumin [Mass/volume ] in Serum or Plasma [facility] Albumin [Mass/volume ] in Serum or Plasma [facility] Albumin/Globulin ratio [facility] Bacteria identified in Unspecified specimen by Aerobe culture [facility] Bacteria identified in Unspecified specimen by Anaerobe culture [facility] Bacteria identified in Urine by Culture Urine culture Microbiology Routine Urinary, incontinence, stress female Ordered: 01/06/2024 [facility] Comment on above: Ordered: 01/06/2024 Cell count, cerebros yo fluid [facility] Cerebrospinal fluid examination [facility] Cerebrospinal fluid IgG ratio and IgG index [facility] Comprehensive metabo lic 1999 panel - Serum or Plasma [facility] Comprehensive metabo lic 1999 panel - Serum or Plasma [facility] Comprehensive metabo lic 1999 panel - Serum or Plasma [facility] Comprehensive metabo lic 1999 panel - Serum or Plasma Comprehensive metabolic panel Lab Routine 02/10/2024 12:54 PM EST [facility] Work Phone: Copper measurement [facility] CT Abdomen and Pelvi s W contrast IV [facility] CT Chest W contrast IV [facility] Electrophoresis: [id number] [facility] Electrophoresis: [id number] [facility] Electrophoresis: beta-globulin [facility] Electrophoresis: adonay ma globulin [facility] Evaluation of cerebrospinal fluid [facility] Fluid sample volume measurement [facility] Globulin [Mass/volum e] in Serum [facility] Glucose measurement estimated from glycated hemoglobin [facility] IgA [Mass/volume] in Serum or Plasma [facility] IgG [Mass/volume] in Cerebral spinal fluid [facility] IgG [Mass/volume] in Serum or Plasma [facility] IgG [Mass/volume] in Serum or Plasma [facility] IgG clearance/Albumi n clearance [Ratio] in Serum and CSF [facility] IgG synthesis rate [Mass/time] in Serum and CSF by calculation [facility] IgM [Mass/volume] in Serum or Plasma [facility] IGP, APT HPV,RFX 16/18,45 IGP, A PT HPV,RFX 16/18,45 Lab Routine Screening for HPV (human papillomavirus) Ordered: 01/06/2024 [facility] [employer] Work Phone: Comment on above: Ordered: 01/06/2024 Insulin [Units/volum e] in Serum or Plasma [facility] Work Phone: Iron and Iron bindin g capacity panel - Serum or Plasma Iron and TIBC Lab Routine 02/10/2024 12:54 PM EST [facility] [employer] [place] light chains.f ree [Mass/volume] in Serum [facility] [place] light chains.free/Lambda light chains.free [Mass Ratio] in Serum [facility] Lambda light chains. free [Mass/volume] in Serum or Plasma [facility] miscellaneous test [place] mis cellaneous test Lab Routine Urinary, incontinence, stress female Screening for HPV (human papillomavirus) Ordered: 01/06/2024 [facility] Comment on above: Ordered: 01/06/2024 NuSwab Vaginitis Plu s (VG+) NuSwab Vaginitis Plus (VG+) Microbiology Routine Urinary, incontinence, stress female Screening for HPV (human papillomavirus) Ordered: 01/06/2024 [facility] Comment on above: Ordered: 01/06/2024 Patient Education [facility] Lumb ar Puncture Discharge Instructions [facility] Work Phone: Protein [Mass/volume ] in Serum or Plasma [facility] Protein fractions.oligoclonal bands.intrathecal [Presence] in Serum and CSF [facility] Rheumatoid factor [Units/volume] in Serum or Plasma [facility] Work Phone: Serum immunofixation [facility] Thyrotropin [Units/v olume] in Serum or Plasma [facility] Work Phone: Thyroxine (T4) free index in Serum or Plasma by calculation [facility] Work Phone: Thyroxine measurement [facility] Work Phone: Triiodothyronine (T3 ) [Mass/volume] in Serum or Plasma [facility] Work Phone: Triiodothyronine res in uptake (T3RU) in Serum or Plasma [facility] Work Phone: [facility] Immunizations Immunization Date Immunization Notes Care Provider Rosalio adame 02-02-2023 influenza virus vacc ine, unspecified formulation Disha VICTORIA Work Phone: [facility] Payers Date Payer Category Payer Medicaid [employer] [place] [id number] 2022-Present [address] [place] [address] [id number] 2022 Private Health Insurance [facility]ICA[facility] [id number] 1981 Unknown [id number] 2.840.1.974503.3.579.2. 593 1981 Unknown [id number] 2.840.1.260432.3.579.2. 593 1981 Unknown [id number] 2.840.1.164904.3.579.2. 593 1981 Unknown [id number] 2.840.1.145409.3.579.2. 593 1981 Unknown [id number] 2.840.1.567335.3.579.2. 593 1981 Unknown [id number] 2.16840.1.284216.3.579.2. 1259 1981 Unknown [id number] 2.16840.1.101324.3.579.2. 1259 1981 Unknown [id number] 2.16840.1.895994.3.579.2. 1259 1981 Unknown [id number] 2.16840.1.718345.3.579.2. 1259 1981 Unknown [id number] 2.16840.1.464082.3.579.2. 1259 1981 Unknown [id number] 2.16.840.1.715779.3.579.2. 1259 1981 Unknown [id number] 2.16.840.1.471259.3.579.2. 1259 1981 Unknown [id number] 2.16.840.1.253858.3.579.2. 9 1981 Unknown [id number] 2.16.840.1.579901.3.579.2. 1259 1959 Self-pay [id number] 1959 Unknown [id number] Private Health Insurance [facility] [id number] Private Health Insurance [facility] [id number] Unknown Insurance No Card [id number] Unknown [id number] 2.16.840.1.985838.3.579.2. 531 Unknown [id number] 2.16.840.1.004587.3.579.2. 531 Social History Date Type Detail Facility Tobacco smoking stat [facility] Unknown if ever smoked [facility] Work Phone: Start: 1980 Sex Assigned At Female [facility] Start: 08-26-2022 End: 11-04-2022 Tobacco smoking status FLIS Never smoked tobacco (finding) [facility] Start: 08-26-2022 Tobacco use and exposure Smokeless tobacco non-user [facility] Start: 12-02-2023 End: 02-23-2024 Alcoholic beverage intake Ex-drinker (finding) [facility] Start: 12-02-2023 End: 02-23-2024 History of Social function [facility] Start: 12-02-2023 End: 02-23-2024 Tobacco use panel [facility] Start: 08-26-2022 Gender identity Identifies as female gender (finding) [facility] Start: 08-26-2022 Sexual orientation Heterosexual (finding) [facility] Clinical Notes 07-28-2020 to 03-01-2024 Tobin Baldwin MD - 01/06/2024 1:15 PM ESME Rocha - 12/31/2023 2:20 PM ESME Rocha - 12/02/2023 12:40 PM EDT Note Date & Type Note Facility 03-01-2024 [place] [address] Referral Source: No ref. provider found 43 year old female here for follow up after VAMSI C7/T1 on 01/19/24. She reports 0% relief from the injection. She rates her pain today 7/10 in her mid neck and radiates down into her bilateral arms to her fingers. The numbness and tingling is constant all day and bothersome with all activities. She did not tolerate gabapentin or lyrica in the past. She continues on Zanaflex 4 mg at bedtime and Naltrexone 1.5 at bedtime. She reports moderate relief and denies adverse side effects. She would like to try another injection for her neck as the numbness and tingling in her hands is her most bothersome symptom at this time. 03/01/24 CC: Chief Complaint Patient presents with Follow-up VAMSI C7-T1 Pain Assessment Pain Assessment: 0-10 Pain Score: 7 Pain Type: Chronic pain Pain Location: Neck Pain Orientation: Right, Left Pain Radiating Towards: Down shoulders to finger tips Pain Descriptors: Aching, Burning, Sharp, Shooting, Stabbing, Throbbing, Numbness Pain Frequency: Constant/continuous Pain Onset: Ongoing Clinical Progression: Gradually worsening Aggravating Factors: Other (Comment) (Every thing) Result of Injury: No Work-Related Injury: No Patient's Stated Pain Goal: No pain Pain Interventions: Medication (See MAR) Response to Interventions: VAMSI C7-T1 0% relief Medications don't usually help at all SUBJECTIVE: Delicia Serrano is a 43 y.o. [...] back pain Lyme disease Migraine Peripheral neuropathy Rheumatoid arthritis (CMS/HCC) Patient Active Problem List Diagnosis Pain in [...] Sleep disturbances Tension headache Vertigo Vestibular dysfunction AV block, 2nd degree Syncope and collapse Abnormal EKG Hyperlipidemia Past Surgical History: Procedure Laterality Date BLADDER [...] Negro Hyperlipidemia Father Negro Arthritis Maternal Grand[facility] [place] [facility] Maternal Grandfather Dominick Diabetes Maternal Grandfather [place] Stroke Maternal Grandfather [place] Arthritis Maternal Grandmother Raydene Cancer Maternal Grandmother Raydene Diabetes Maternal Grandmother Raydene Miscarriages / Stillbirths Maternal Grandmother Raydene Arthritis Paternal Grandfather Vasiliy Diabetes Paternal Grandfather Vasiliy Arthritis Esme (more content not included)... [facility] 02-19-2024 Note [facility] Note Reason for visit: follow up HPI: 02/21/2024 Patient reports that she still having passing out episodes about 2-3 times a week despite wearing the compression stockings and increasing her fluid and salt intake. She in addition she has other episodes of feeling lightheadedness without passing out. Otherwise she denies chest pain or shortness of breath at rest or with exertion. Denies orthopnea or paroxysmal nocturnal dyspnea or palpitations or legs edema. 12/18/2023 Delicia Serrano is a 43 y.o. female [...] orthopnea/PND, lower extremity edema, she admits palpitations, lightheadedness/dizziness/syncop e episodes as described above. RESPIRATORY: Denies SOB, [...] disease, Migraine, Peripheral neuropathy, and Rheumatoid arthritis ([facility]). Surgical History She has a past [...] Negro Hyperlipidemia Father Negro Arthritis Maternal Grand[facility] [place] [facility] Maternal Grandfather Dominick Diabetes Maternal Grandfather [place] Stroke Maternal Grandfather Dominick Arthritis Maternal Grandmother Raydene Cancer Maternal Grandmother Raydene Diabetes Maternal Grandmother Raydene Miscarriages / Stillbirths Maternal Grandmother Raydene Arthritis Paternal Grandfather Vasiliy Diabetes Paternal Grandfather Vasiliy Arthritis Paternal Grandmother Jane Diabetes Paternal Grandmother Jane Asthma Son Santana Hypertension Son (more content not included)... [facility] 01-06-2024 History of Present illness Narrative Images from the original note were not included. Tobin Baldwin MD Obstetrics and Gynecology Patient: Deliica Serrano, : 1980 (43 y.o.) DOS 01/06/24 Exam Date: 01/06/2024 HPI: Yearly exam C/o spotting with intrcourse No menses with IUD Also c/o sudden urinary incontinence Visit Vitals BP 128/78 Wt 179 lb BMI 32.74 kg/m OB Status Implant Smoking Status Never BSA 1.88 m OB History Para Term AB Living 3 2 2 0 0 2 SAB IAB Ectopic Multiple Live Births 0 0 0 0 2 # Outcome Date GA Lbr Leif/2nd Weight Sex Type Anes PTL Lv 3 2 Term 1 Term Obstetric Comments Pap: 09/05-Neg SELIN: HPV Neg Pap: 06/04-Neg SELIN: HPV Pos Mammo: 07/05-Neg ([facility]) Liletta IUD; amenorrhea Medication and Allergies Medication Documentation Review Audit Reviewed by Pat Lima MA (Dust Mop Maker) on 01/06/24 at 1324 Medication Order Taking? Sig Documenting Provider Last Dose Status nyikglp-ubjtgwkltzsdl-wcpqryax (Excedrin Migraine) 250-250-65 MG tablet [id number] 1 (one) time each day at the same time. Historical Provider, Active Discontinued 01/04/24 1240 cetirizine-pseudoephedrine (ZyrTEC-D) 5-120 MG 12 hr tablet [id number] Take 1 tablet by mouth 2 (two) times a day as needed. Historical ProviderMD Active DULoxetine (Cymbalta) [address] capsule [id number] TAKE ONE CAPSULE BY MOUTH DAILY ESME Sterling Active ferrous sulfate 325 (65 Fe) MG tablet [id number] Take 325 mg by mouth in the morning. Take with meals. ESME Sterling Active folic acid (Folvite) 1 MG tablet [id number] Take 1 mg by mouth in the morning and in the evening ESME Sterling Active fremanezumab (Ajovy) 225 MG/1.5ML prefilled syringe [id number] Inject 1.5 mL (225 mg) under the skin every 30 (thirty) days ESME Sterling 01/04/24 6760 methotrexate 2.5 MG tablet [id number] No Take 2.5 mg by mouth 1 (one) time per week. 8 tablets weekly ESME Sterling Not Taking Active Multiple Vitamin (Multivitamin) tablet [id number] Take 1 tablet by mouth in the morning. Historical MD Yessenia Active NALTREXONE HCL PO [id number] Take 1.5 mg by mouth Daily ESME Sterling Active Discontinued 01/04/24 1232 Discontinued 01/04/24 1232 predniSONE (Deltasone) 5 MG tablet [id number] 5 mg if needed ESME Sterling Active QUEtiapine (SEROquel) 50 MG tablet [id number] Take 50 mg by mouth at bedtime. Historical MD Yessenia Active Rimegepant Sulfate (Nurtec) 75 MG tablet dispersible [id number] Take 75 mg by mouth Daily as needed (migraine) ESME Sterling Active simvastatin (Zocor) 20 MG tablet [id number] Take 20 mg by mouth in the evening. Asif Casas MD Active Discontinued 01/04/24 1232 tiZANidine (Zanaflex) 4 MG tablet [id number] TAKE THREE TABLETS BY MOUTH AT BEDTIME NEEDED Asif Casas MD Active topiramate (Topamax) 25 MG tablet [id number] Take 1 tablet (25 mg) by mouth in the morning and 1 tablet (25 mg) before bedtime. In addition to 50mg. ESME Sterling Active topiramate (Topamax) 50 MG tablet [id number] Take 50 mg by mouth in the morning and 50 mg before bedtime. ESME Sterling Active traZODone (Desyrel) 50 MG tablet [id number] Take 1 tablet (50 mg) by mouth at bedtime ESME Sterling 12/31/23 2359 zolpidem (Ambien) 10 MG tablet [id number] TAKE ONE TABLET BY MOUTH DAILY AT BEDTIME Cely Goodwin, JANINE Active Allergies Allergen Reactions Sulfa Antibiotics Rash, Shortness of breath and Unknown Other Reaction(s): Anaphylaxis-Bakers Yeast Acarbose Diarrhea Metformin Hcl Other Reaction(s): GI Symptoms Past Medical History: Diagnosis Date Abdominal muscle pain Anxiety Chronic fatigue syndrome Depression (CMS/HCC) Dizziness DM (diabetes mellitus), gestational Fibromyalgia High cholesterol (CMS/HCC) Insomnia Low iron Migraine (CMS/HCC) Migraine headache (CMS/HCC) Obesity BMI 30-39.9 Obstructive sleep apnea Prediabetes Sleep apnea Vertigo Vestibular dysfunction Past Surgical History: Procedure Laterality Date ABDOMINAL SURGERY abdominalplasty APPENDECTOMY BLADDER SURGERY SECTION, LOW TRANSVERSE SECTION, LOW TRANSVERSE CYSTOSCOPY FEMINIZING AUGMENTATION MAMMOPLASTY IR ABLATION BONE Left 06/09/2023 IR ABLATION BONE 06/09/2023 IR INJECTION EPIDURAL STEROID 08/06/2023 IR INJECTION EPIDURAL STEROID 08/06/2023 IR INJECTION EPIDURAL STEROID 10/27/2023 IR INJECTION EPIDURAL STEROID 10/27/2023 TYMPANOSTOMY TUBE PLACEMENT Physical Exam: Objective Physical Exam Constitutional: Appearance: Normal appearance. Genitourinary: Vulva normal. Vaginal discharge present. No vaginal bleeding. Right Adnexa: not palpable. Left Adnexa: not palpable. No cervical lesion. No IUD strings visualized. Uterus is not enlarged or tender. Breasts: Right: Normal. Left: Normal. Pulmonary: Effort: Pulmonary effort is normal. Abdominal: Palpations: Abdomen is soft. Neurological: Mental Status: She is alert. Associated Treatments and Results - ICD-10-CM 1. Postcoital bleeding N93.0 2. Urinary, incontinence, stress female N39.3 3. Screening for HPV (human papillomavirus) Z11.51 IGP, APT HPV,RFX 16/18,45 4. Intrauterine device surveillance Z30.431 5. Other screening mammogram Z12.31 Bilateral screening mammogram with tomosynthesis 6. Intrauterine contraceptive device threads lost, initial encounter T83.32XA Check vaginitis panel Check sono Check UA and C+S Assessment/Plan Orders Placed This Encounter Procedures Bilateral screening mammogram with tomosynthesis U/S and spot compression if indicated Standing Status: Future Standing Expiration Date: 04/07/2025 Order Specific Question: Reason for exam: Answer: screen Order Specific Question: Is the patient ? Answer: No IGP, APT HPV,RFX 16/18,45 Order Specific Question: Print requisition? Answer: No documented in this encounter [facility] 12-31-2023 History of Present illness Narrative Subjective Delicia Serrano is a 43 y.o. year old female No chief complaint on file. Past Medical History: Diagnosis Date Abdominal muscle pain Anxiety Chronic fatigue syndrome Depression (CMS/HCC) Dizziness DM (diabetes mellitus), gestational Fibromyalgia High cholesterol (CMS/HCC) Insomnia Low iron Migraine (CMS/HCC) Migraine headache (CMS/HCC) Obesity BMI 30-39.9 Obstructive sleep apnea Prediabetes Sleep apnea Vertigo Vestibular dysfunction Past Surgical History: Procedure Laterality Date ABDOMINAL SURGERY abdominalplasty APPENDECTOMY BLADDER SURGERY SECTION, LOW TRANSVERSE SECTION, LOW TRANSVERSE CYSTOSCOPY FEMINIZING AUGMENTATION MAMMOPLASTY IR ABLATION BONE Left 06/09/2023 IR ABLATION BONE 06/09/2023 IR INJECTION EPIDURAL STEROID 08/06/2023 IR INJECTION EPIDURAL STEROID 08/06/2023 IR INJECTION EPIDURAL STEROID 10/27/2023 IR INJECTION EPIDURAL STEROID 10/27/2023 TYMPANOSTOMY TUBE PLACEMENT Family History Problem Relation Name Age of Onset Hypertension Mother Hyperlipidemia Mother Hypertension Father Heart disease Father Hyperlipidemia Father Kidney cancer Father's Sister Ovarian cancer Maternal Grandmother Stroke Maternal Grandmother Diabetes Maternal Grandmother Brain cancer Maternal Grandfather Social History Tobacco Use Smoking status: Never Smokeless tobacco: Never Substance Use Topics Alcohol use: Not Currently Medication Documentation Review Audit Reviewed by Kaitlynn Boo MA (Dust Mop Maker) on 12/02/23 at 1245 Medication Order Taking? Sig Documenting Provider Last Dose Status rvvdhyd-mkhpthnhlebyr-aodiyxip (Excedrin Migraine) 250-250-65 MG tablet [id number] 1 (one) time each day at the same time. Historical Provider, Active busPIRone (Buspar) 15 MG tablet [id number] Take 15 mg by mouth in the morning and 15 mg before bedtime. ESME Sterling Active cetirizine-pseudoephedrine (ZyrTEC-D) 5-120 MG 12 hr tablet [id number] Take 1 tablet by mouth 2 (two) times a day as needed. Asif Casas MD Active DULoxetine (Cymbalta) [address] capsule [id number] TAKE ONE CAPSULE BY MOUTH DAILY Patient taking differently: Take 30 mg by mouth Daily ESME Sterling Active ferrous sulfate 325 (65 Fe) MG tablet [id number] Take 325 mg by mouth in the morning. Take with meals. ESME Sterling Active folic acid (Folvite) 1 MG tablet [id number] Take 1 mg by mouth in the morning and in the evening ESME Sterling Active fremanezumab (Ajovy) 225 MG/1.5ML prefilled syringe [id number] Inject 1.5 mL (225 mg) under the skin every 30 (thirty) days ESME Sterling Active furosemide (Lasix) 20 MG tablet [id number] Take 20 mg by mouth 2 (two) times a day as needed. Asif Casas MD Active methotrexate 2.5 MG tablet [id number] No Take 2.5 mg by mouth 1 (one) time per week. ESME Sterling Not Taking Active Multiple Vitamin (Multivitamin) tablet [id number] Take 1 tablet by mouth in the morning. Asif Casas MD Active NALTREXONE HCL PO [id number] Take 1.5 mg by mouth Daily ESME Sterling Active phentermine (Adipex-P) 37.5 MG tablet [id number] No TAKE ONE TABLET BY MOUTH DAILY BEFORE BREAKFAST Asif Casas MD Not Taking Active potassium chloride CR (Klor-Con) 10 MEQ ER tablet [id number] Take 10 mEq by mouth in the morning and 10 mEq before bedtime. Asif Casas MD Active predniSONE (Deltasone) 5 MG tablet [id number] 5 mg if needed ESME Sterling Active QUEtiapine (SEROquel) 50 MG tablet [id number] Take 50 mg by mouth at bedtime. Asif Casas MD Active simvastatin (Zocor) 20 MG tablet [id number] Take 20 mg by mouth in the evening. Asif Casas MD Active SUMAtriptan (Imitrex) 50 MG tablet [id number] TAKE ONE TABLET BY MOUTH AT LEAST 2 HOURS BETWEEN DOSES NEEDED FOR MIGRAINE FOR 30 DAYS Historical Provider, Active tiZANidine (Zanaflex) 4 MG tablet [id number] TAKE THREE TABLETS BY MOUTH AT BEDTIME NEEDED Historical Provider, Active topiramate (Topamax) 25 MG tablet [id number] TAKE ONE TABLET BY MOUTH ONCE DAILY IN THE MORNING (IN ADDITION TO THE 100MG) ESME Sterling Active traZODone (Desyrel) 50 MG tablet [id number] Take 1 tablet (50 mg) by mouth at bedtime ESME Sterling 11/05/23 2359 zolpidem (Ambien) 10 MG tablet [id number] TAKE ONE TABLET BY MOUTH DAILY AT BEDTIME Cely Goodwin NP Active Patient is here today for follow-up of vertigo, neuropathic pain, hypersomnia, headaches. I am following the plan of care established by the physician who is present in the office today. HPI VERTIGO -pt presents with a migraine today -reports no change in symptoms -happens more with position changes or when she tilts her head back or turns her head -pt has been dx with POTS -she was also found to have prior infarct on EKG -she is wearing another 30 day compliance monitor -episodes are happening less frequent, but still greater that 3 times a week. -denies muscle spasm -reports losing consciousness last week. -she denies tongue biting but had 1 episode of incontinence -she states weakness in her legs -feel like they buckle HYPERSOMNIA/INSOMNIA -she is not sleeping well -using BiPAP -she gets about a few hours of broken sleep a night -she states she cannot sleep due to pain and racing thoughts -she take Ambien and trazodone -she switches these TENSION HEADACHES -on Ajovy and Topamax -REID daily -worse with weather -she has not had a migraine recently -light and sound sensitivity -nausea and vomiting -REID located frontal -sharp and pulsating LEG PAIN -On Cymbalta, Methotrexate and Naltrexone -symptoms are are still the same -painful to touch -described as achy -when she touches it is an aggravating feeling -lower leg edema -Admits imbalance PARESTHESIA BILAT HANDS -admits tingling in her hands -weakness in both hands -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 Respiratory: Positive for cough. Negative for chest tightness and shortness of breath. Cardiovascular: Negative for chest pain and palpitations. Gastrointestinal: Negative for abdominal pain, nausea and vomiting. Musculoskeletal: Positive for back pain, gait problem, joint swelling and myalgias. Neurological: Positive for dizziness, weakness, light-headedness, numbness and headaches. Negative for tremors, seizures, syncope, facial asymmetry and speech difficulty. Psychiatric/Behavioral: Positive for sleep disturbance. Objective Visit Vitals BP 118/78 Ht 5' 2 Wt 195 lb BMI 35.67 kg/m OB Status Implant Smoking Status Never BSA 1.97 m Heart-RRR Neurological Exam Mental Status Awake, alert and oriented to person, place and time. Oriented to person, place, time and situation. Recent and remote memory are intact. Speech is normal. Language is fluent with no aphasia. Cranial Nerves CN III, IV, : Normal lids and orbits bilaterally. Pupils equal round and reactive to light bilaterally. CN VII: Full and symmetric facial movement. CN VIII: Hearing is normal. CN XI: Shoulder shrug strength is normal. Sensory Light touch is normal in upper and lower extremities. Coordination Right: Rjlaat-za-ldhy normal. Gait Normal casual, toe, heel and tandem gait. 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 LUE Strength deltoid, biceps, triceps, wrist extensors, wrist extensors, wrist flexor, and taxi instructor bus trolley strength 5/5. RLE Strength illopsoas, quadriceps, tibialis anterior, and gastrocnemius strength 5/5. LLE Strength illopsoas, quadriceps, tibialis anterior, and gastrocnemius strength 5/5. Tone Normal tone x4 extremities. Reflexes: RUE biceps reflex 2, LUE biceps reflex 2, RLE knee reflex 2, LLE knee reflex 2, Assessment and Plan Diagnoses and all orders for this visit: Vertigo history of vertigo that increases when she looks up/tilts her head back. Her vertigo is at baseline. MRI of the brain with and without contrast 11/27/22 revealed no acute pathology and no abnormal post contrast enhancement. There was flatteneing of the sella noted possibly indicating intracranial hypertension. LP done 03/26/23 revealed opening pressure of 17.5cmH2O with labwork only remarkable for slightly elevated MBP at 4.9. Zero oligoclonal bands, normal IgG synthesis. Chronic tension-type headache, not intractable She was previously on Topamax but this caused brain fog. She was experiencing daily headaches with at least 10 migraine days per month with nausea. She has tried Elavil, Imitrex, Zanaflex, Relpax, Mobic, Cymbalta, Verapamil and Vasotec. She was having some weight gain after Topamax was stopped. Her headaches increased since having COVID in July 2020. She did not respond to Flexeril. She was previously on Aimovig but this was not covered by insurance. She remains on Ajovy but her headaches persist. She also was recently found to have prior FL and she is no longer able to take triptans. Carpal tunnel syndrome of right wrist Radiculopathy of cervical region Paresthesia of bilateral hands. She had an EMG of her bilateral upper extremities in 2014 which was normal. Updated EMG of the bilateral upper extremities 2018 was normal. EMG of the bilateral upper extremities 05/2020 revealed median neuropathy on the right which is minimal and a remote C5 radiculopathy on the left which is very minimal in degree electrically. Vestibular dysfunction, unspecified laterality VNG 05/2018 reviewed and noted significant peripheral vestibular dysfunction. She has failed Meclizine and vestibular therapy. This worsens with specific movements such as looking up. Myalgia she notes neck/shoulder pain that radiates to her head causing tension headaches. Flexeril did not relieve her symptoms. She takes Zanaflex at night and baclofen during the day but her fatigue persists. She is now on Adderall per PCP. She did not respond to Robaxin. She has been diagnosed with RA. Insomnia, unspecified type Patient has insomnia that has improved with Ambien. Pain in both lower extremities EMG of the bilateral lower extremities 2019 was normal. She is having persistent and increased bilateral leg pain. This did not respond to Cymbalta and gabapentin increase. She notes that she has stopped her gabapentin due to concern for edema. She has trialed to come off of Cymbalta in the past and has noted an increase in neuropathic symptoms. Her leg pain persists but she has had some response to Lyrica. No worsening edema but her leg pain persists especially after a long day at work. Orphenadrine caused drowsiness during the day and she did not respond to Robaxin.Her symptoms continue. She does not note benefit with Lyrica and has lowered to once daily and has since stopped. Cymbalta was increased by pain management and she is also on Naltrexone. HILARY (obstructive sleep apnea) PSG 02/2020 revealed mild HILARY with AHI of 9/hour. She is now on BiPAP therapy. Degenerative disc disease, cervical MRI of the cervical spine 06/25/20 revealed uncovertebral joint spurring bilaterally which contributed to mild to moderate bilateral neural foraminal narrowing without significant spinal canal narrowing. MRI of the C spine with and without contrast 11/27/22 revealed uncovertebral joint spurring at C3-C4 with no compression or abnormal post contrast enhancement. Transient alteration of awareness Patient has been having episodes of loss of consciousness almost daily. She notes that she had a holter monitor done by PCP and was told that it was concerning so she is going to see a audio engineer. Her symptoms may be due to arrhythmia but she also notes jerking to her right hand prior to episodes which raises concern for seizure activity. She has been diagnosed with POTS. 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 Syncope Plan: 1. We will check on MRI order as she has not heard. 2. She is unable to take Imitrex due to her cardiac pathology. 3. Trial Nurtec 75mg PO prn migraine. 4. Continue trazodone 50mg PO nightly for insomnia. 5. Adjust Topamax to 75mg PO BID for headache prevention. 6. I counseled the patient on the side effects of medications. 7. Continue Ajovy for headache prevention. 8. Continue Ambien 10mg PO QHS for insomnia. 9. OARRS reviewed. 10. Continue to follow with cardiology. Follow up 4 weeks documented in this encounter [facility] 12-31-2023 Note [facility] 12-30-2023 Note Patient notified via [email or web address]. Esperanza Nunes MA [facility] 12-30-2023 Note Attestation signed by Christianne Da Silva MD at 12/30/2023 3:41 PM I personally saw and examined the patient on the same date of service as resident/fellow . I discussed the findings and therapeutic plan with the resident/fellow . I agree with the documentation, except for any edits/updates below. Teaching Physician's Revisions Still has symptoms suggestive of active RA with prolonged am stiffness, will increase methotrexate to 8 tablets/ week Repeat monitoring labs today Subjective Patient ID: Delicia Serrano is a 43 y.o. female who presents for No chief complaint on file.. Delicia Serrano is a 43 y.o. female presenting for follow up of seronegative inflammatory arthropathy and fibromyalgia. She reports increasing syncope episodes with prior diagnosis of POTS, she is following with cardiology. She had recent EKG and TTE at [facility]. Current Regimen: Duloxetine [address] BID, Methotrexate 15 mg (6 tabs) weekly, Folic acid 1 mg daily See pain management for back pain, contemplating repeat injection. She reports generalized pain worse at the end of the day with activity. She initially denied swelling, but does later mention some morning stiffness and pain of the hands in the morning. She also reports worsening aching pain in the BLE at the end of the day without swelling or erythema. She has not attempted prednisone since last visit, she takes prednisone occasionally for her hands, but has to take them 4-5 days before she see's some improvement. HPI Review of Systems Constitutional: Negative for chills [...] back pain. Skin: Negative for rash. Objective There were no vitals taken for this visit. Physical Exam Vitals and nursing note reviewed. [...] Content: Thought content normal. Judgment: Judgment normal. There is currently no information documented on the homunculus. Go to the Rheumatology activity and complete the homunculus joint exam. Assessment/Plan 42-year-old female presented today for follow-up [...] not following pattern of inflammation Plan: - prednisone taken PRN for increased joint pain/stiffness - Increase methotrexate to 20 mg weekly and folic acid 1 mg every day - MRI of right hand to assess for inflammation, not yet done, had to reschedule. -Risks and benefits of methotrexate were discussed including but not limited to increased chance for infection, nausea, hair loss, oral ulcers, liver toxicity, bone marrow toxicity, etc. Methotrexate is teratogenic and patient should not get while on this medication. She has IUD, the need for regular lab monitoring for potential methotrexate toxicity/side ef (more content not included)... [facility] 12-18-2023 Note [facility] Note Reason for cardiology [...] orthopnea/PND, lower extremity edema, she admits palpitations, lightheadedness/dizziness/syncop e episodes as described above. RESPIRATORY: Denies SOB, [...] disease, Migraine, Peripheral neuropathy, and Rheumatoid arthritis ([facility]). Surgical History She has a past [...] Diabetes Maternal Grandfather Dominick Stroke Maternal Grand[facility] [place] Arthritis Maternal Grandmother Raydene Cancer Maternal Grandmother [...] VIA SUBCUTANEOUS ROUTE (more content not included)... [facility] 12-15-2023 [place] [address] Referral Source: No ref. provider found 43 [...] to Interventions: Lt SIJ 10/27/23 SUBJECTIVE: Delicia Serrano is a 43 y.o. [...] Arthritis Maternal Grandfather Dominick Cancer Maternal Grandfather [facility] [place] Diabetes Maternal Grand[place] Stroke Maternal Grandfather Dominick Arthritis Maternal Grandmother Raydene Cancer Maternal Grandmother Raydene Diabetes Maternal Grandmother Raydene Miscarriages / Stillbirths Maternal Grandmother Raydene Arthritis Paternal Grandfather Vasiliy Diabetes Paternal Grandfather Vasiliy Arthritis Paternal Grandmother Jane Diabetes Paternal Grandmother Jane Asthma Son Santana Hypertension Son Santana defects Daughter Kathy GI problems Daughter Kathy Cancer Father's Sister Leigh Cancer Father (more content not included)... [facility] 12-02-2023 History of Present illness Narrative Subjective Delicia Serrano is a 43 y.o. year old female Chief Complaint Patient presents with Dizziness Leg Pain Numbness Headache Past Medical History: Diagnosis Date Abdominal muscle pain Anxiety Chronic fatigue syndrome Depression (CMS/HCC) Dizziness DM (diabetes mellitus), gestational Fibromyalgia High cholesterol (CMS/HCC) Insomnia Low iron Migraine (CMS/HCC) Migraine headache (CMS/HCC) Obesity BMI 30-39.9 Obstructive sleep apnea Prediabetes Sleep apnea Vertigo Vestibular dysfunction Past Surgical History: Procedure Laterality Date ABDOMINAL SURGERY abdominalplasty APPENDECTOMY BLADDER SURGERY SECTION, LOW TRANSVERSE SECTION, LOW TRANSVERSE CYSTOSCOPY FEMINIZING AUGMENTATION MAMMOPLASTY IR ABLATION BONE Left 06/09/2023 IR ABLATION BONE 06/09/2023 IR INJECTION EPIDURAL STEROID 08/06/2023 IR INJECTION EPIDURAL STEROID 08/06/2023 IR INJECTION EPIDURAL STEROID 10/27/2023 IR INJECTION EPIDURAL STEROID 10/27/2023 TYMPANOSTOMY TUBE PLACEMENT Family History Problem Relation Name Age of Onset Hypertension Mother Hyperlipidemia Mother Hypertension Father Heart disease Father Hyperlipidemia Father Kidney cancer Father's Sister Ovarian cancer Maternal Grandmother Stroke Maternal Grandmother Diabetes Maternal Grandmother Brain cancer Maternal Grandfather Social History Tobacco Use Smoking status: Never Smokeless tobacco: Never Substance Use Topics Alcohol use: Not Currently Medication Documentation Review Audit Reviewed by Kaitlynn Boo MA ([employer]) on 12/02/23 at 1245 Medication Order Taking? Sig Documenting Provider Last Dose Status flttjbz-rablhnzlmmhhn-niyeuwoo (Excedrin Migraine) 250-250-65 MG tablet [id number] 1 (one) time each day at the same time. Historical Provider, Active busPIRone (Buspar) 15 MG tablet [id number] Take 15 mg by mouth in the morning and 15 mg before bedtime. ESME Sterling Active cetirizine-pseudoephedrine (ZyrTEC-D) 5-120 MG 12 hr tablet [id number] Take 1 tablet by mouth 2 (two) times a day as needed. Asif Casas MD Active DULoxetine (Cymbalta) [address] capsule [id number] TAKE ONE CAPSULE BY MOUTH DAILY Patient taking differently: Take 30 mg by mouth Daily ESME Sterling Active ferrous sulfate 325 (65 Fe) MG tablet [id number] Take 325 mg by mouth in the morning. Take with meals. ESME Sterling Active folic acid (Folvite) 1 MG tablet [id number] Take 1 mg by mouth in the morning and in the evening ESME Sterling Active fremanezumab (Ajovy) 225 MG/1.5ML prefilled syringe [id number] Inject 1.5 mL (225 mg) under the skin every 30 (thirty) days ESME Sterling Active furosemide (Lasix) 20 MG tablet [id number] Take 20 mg by mouth 2 (two) times a day as needed. Asif Casas MD Active methotrexate 2.5 MG tablet [id number] No Take 2.5 mg by mouth 1 (one) time per week. ESME Sterling Not Taking Active Multiple Vitamin (Multivitamin) tablet [id number] Take 1 tablet by mouth in the morning. Asif Casas MD Active NALTREXONE HCL PO [id number] Take 1.5 mg by mouth Daily ESME Sterling Active phentermine (Adipex-P) 37.5 MG tablet [id number] No TAKE ONE TABLET BY MOUTH DAILY BEFORE BREAKFAST Asif Casas MD Not Taking Active potassium chloride CR (Klor-Con) 10 MEQ ER tablet [id number] Take 10 mEq by mouth in the morning and 10 mEq before bedtime. Asif Casas MD Active predniSONE (Deltasone) 5 MG tablet [id number] 5 mg if needed ESME Sterling Active QUEtiapine (SEROquel) 50 MG tablet [id number] Take 50 mg by mouth at bedtime. Asif Casas MD Active simvastatin (Zocor) 20 MG tablet [id number] Take 20 mg by mouth in the evening. Asif Casas MD Active SUMAtriptan (Imitrex) 50 MG tablet [id number] TAKE ONE TABLET BY MOUTH AT LEAST 2 HOURS BETWEEN DOSES NEEDED FOR MIGRAINE FOR 30 DAYS Asif Casas MD Active tiZANidine (Zanaflex) 4 MG tablet [id number] TAKE THREE TABLETS BY MOUTH AT BEDTIME NEEDED Historical Provider, Active topiramate (Topamax) 25 MG tablet [id number] TAKE ONE TABLET BY MOUTH ONCE DAILY IN THE MORNING (IN ADDITION TO THE 100MG) ESME Sterling Active traZODone (Desyrel) 50 MG tablet [id number] Take 1 tablet (50 mg) by mouth at bedtime ESME Sterling 11/05/23 2359 zolpidem (Ambien) 10 MG tablet [id number] TAKE ONE TABLET BY MOUTH DAILY AT BEDTIME Cely Goodwin NP Active HPI VERTIGO -increase in symptoms -happens more with position changes or when she tilts her head back or turns her head -she states it is different now -happens now when standing and happens out of no where -She has had frequent episodes of syncope -almost daily -she gets muscle spasms with this -she states sometimes she loses consciousness -she denies tongue biting but had 1 episode of incontinence -she states weakness in her legs -feel like they buckle -she is seeing Cardiology due to abnormal Holter monitor -she is seeing them the end of this month -she is unsure what the possible diagnosis is HYPERSOMNIA/INSOMNIA -she is not sleeping well -using BiPAP -she gets about a few hours of broken sleep a night -she states she cannot sleep due to pain and racing thoughts -she take Ambien and trazodone -she switches these TENSION HEADACHES -on Ajovy and Topamax -REID daily -worse with weather -she has not had a migraine recently -light and sound sensitivity -nausea and vomiting -REID located frontal -sharp and pulsating LEG PAIN -On Cymbalta, Methotrexate and Naltrexone -symptoms are are still the same -painful to touch -described as achy -when she touches it is an aggravating feeling -lower leg edema -Admits imbalance PARESTHESIA BILAT HANDS -admits tingling in her hands -weakness in both hands -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 Respiratory: Positive for cough. Negative for chest tightness and shortness of breath. Cardiovascular: Negative for chest pain and palpitations. Gastrointestinal: Negative for abdominal pain, nausea and vomiting. Musculoskeletal: Positive for back pain, gait problem, joint swelling and myalgias. Neurological: Positive for dizziness, weakness, light-headedness, numbness and headaches. Negative for tremors, seizures, syncope, facial asymmetry and speech difficulty. Psychiatric/Behavioral: Positive for sleep disturbance. Objective Visit Vitals BP 108/64 Ht 5' 2 Wt 188 lb BMI 34.39 kg/m OB Status Implant Smoking Status Never BSA 1.93 m Heart-RRR Neurological Exam Mental Status Awake, alert and oriented to person, place and time. Oriented to person, place, time and situation. Recent and remote memory are intact. Speech is normal. Language is fluent with no aphasia. Cranial Nerves CN III, IV, : Normal lids and orbits bilaterally. Pupils equal round and reactive to light bilaterally. CN VII: Full and symmetric facial movement. CN VIII: Hearing is normal. CN XI: Shoulder shrug strength is normal. Sensory Light touch is normal in upper and lower extremities. Coordination Right: Vnmljz-rw-gcdq normal. Gait Normal casual, toe, heel and tandem gait. 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 LUE Strength deltoid, biceps, triceps, wrist extensors, wrist extensors, wrist flexor, and taxi instructor bus trolley strength 5/5. RLE Strength illopsoas, quadriceps, tibialis anterior, and gastrocnemius strength 5/5. LLE Strength illopsoas, quadriceps, tibialis anterior, and gastrocnemius strength 5/5. Tone Normal tone x4 extremities. Reflexes: RUE biceps reflex 2, LUE biceps reflex 2, RLE knee reflex 2, LLE knee reflex 2, Assessment and Plan Diagnoses and all orders for this visit: Vertigo history of vertigo that increases when she looks up/tilts her head back. Her vertigo is at baseline. MRI of the brain with and without contrast 11/27/22 revealed no acute pathology and no abnormal post contrast enhancement. There was flatteneing of the sella noted possibly indicating intracranial hypertension. LP done 03/26/23 revealed opening pressure of 17.5cmH2O with labwork only remarkable for slightly elevated MBP at 4.9. Zero oligoclonal bands, normal IgG synthesis. Her symptoms persist. Chronic tension-type headache, not intractable She was previously on Topamax but this caused brain fog. She was experiencing daily headaches with at least 10 migraine days per month with nausea. She has tried Elavil, Imitrex, Zanaflex, Relpax, Mobic, Cymbalta, Verapamil and Vasotec. She was having some weight gain after Topamax was stopped. Her headaches increased since having COVID in July 2020. She did not respond to Flexeril. She was previously on Aimovig but this was not covered by insurance. She remains on Ajovy. Carpal tunnel syndrome of right wrist Radiculopathy of cervical region Paresthesia of bilateral hands. She had an EMG of her bilateral upper extremities in 2014 which was normal. Updated EMG of the bilateral upper extremities 2018 was normal. EMG of the bilateral upper extremities 05/2020 revealed median neuropathy on the right which is minimal and a remote C5 radiculopathy on the left which is very minimal in degree electrically. Vestibular dysfunction, unspecified laterality VNG 05/2018 reviewed and noted significant peripheral vestibular dysfunction. She has failed Meclizine and vestibular therapy. This worsens with specific movements such as looking up. Myalgia she notes neck/shoulder pain that radiates to her head causing tension headaches. Flexeril did not relieve her symptoms. She takes Zanaflex at night and baclofen during the day but her fatigue persists. She is now on Adderall per PCP. She did not respond to Robaxin. She has been diagnosed with RA. Insomnia, unspecified type Patient has insomnia that has improved with Ambien. Pain in both lower extremities EMG of the bilateral lower extremities 2018 was normal. She is having persistent and increased bilateral leg pain. This did not respond to Cymbalta and gabapentin increase. She notes that she has stopped her gabapentin due to concern for edema. She has trialed to come off of Cymbalta in the past and has noted an increase in neuropathic symptoms. Her leg pain persists but she has had some response to Lyrica. No worsening edema but her leg pain persists especially after a long day at work. Orphenadrine caused drowsiness during the day and she did not respond to Robaxin.Her symptoms continue. She does not note benefit with Lyrica and has lowered to once daily and has since stopped. Cymbalta was increased by pain management and she is also on Naltrexone. She continues with leg weakness. HILARY (obstructive sleep apnea) PSG 02/2020 revealed mild HILARY with AHI of 9/hour. She is now on BiPAP therapy. Degenerative disc disease, cervical MRI of the cervical spine 06/25/20 revealed uncovertebral joint spurring bilaterally which contributed to mild to moderate bilateral neural foraminal narrowing without significant spinal canal narrowing. MRI of the C spine with and without contrast 11/27/22 revealed uncovertebral joint spurring at C3-C4 with no compression or abnormal post contrast enhancement. Transient alteration of awareness Patient has been having episodes of loss of consciousness almost daily. She notes that she had a holter monitor done by PCP and was told that it was concerning so she is going to see a audio engineer. Her symptoms may be due to arrhythmia but she also notes jerking to her right hand prior to episodes which raises concern for seizure activity. She also notes they are looking into POTS. Syncope Plan: 1. I will order an MRI of the brain to evaluate for intracranial changes such as a tumor, mass, or lesion that would contribute to her symptoms. 2. We will request holter monitor from [place]. 3. Continue trazodone 50mg PO nightly for insomnia. 4. Continue Topamax 100mg PO QHS for headache prevention. 5. Continue Ajovy for headache prevention. 6. OARRS reviewed. 7. Continue Ambien 10mg PO QHS for insomnia. Follow up 4 weeks documented in this encounter [facility] 09-30-2023 [place] [address] Referral Source: No ref. provider found 09/30/23 [...] state, incidental Lumbar radiculopathy Seronegative arthritis Other intermediate (current) drug therapy Spondylosis without myelopathy or [...] Other reaction(s): Un (more content not included)... [facility] 09-30-2023 [place] [address] Referral Source: No ref. provider found 09/30/23 [...] state, incidental Lumbar radiculopathy Seronegative arthritis Other intermediate (current) drug therapy Spondylosis without myelopathy or [...] Other reaction(s): Un (more content not included)... [facility] 09-21-2023 Note Attestation signed by Christianne Da Silva [...] side effects, will switch Cymbalta to Savella Subjective Patient ID: Delicia Serrano is a [...] limited to inc (more content not included)... [facility] 07-09-2023 Note Pain Medicine Medical [address] [address] Referral Source: No ref. provider found 07/09/23 [...] state, incidental Lumbar radiculopathy Seronegative arthritis Other intermediate (current) drug therapy Spondylosis without myelopathy or [...] Arthritis Maternal Grandfather Dominick Cancer Maternal Grand[facility] [place] Diabetes Maternal Grand[facility] [place] Stroke Maternal Grandfather Dominick Arthritis Maternal Grandmother [...] deformities, skin discol (more content not included)... [facility] 07-09-2023 Note Pain [address] [address] Referral Source: No ref. provider found 07/09/23 [...] Arthritis Maternal Grandfather Dominick Cancer Maternal Grandfather [facility] [place] Diabetes Maternal Grand[facility] [place] Stroke Maternal Grandfather [place] Arthritis Maternal Grandmother Raydene Cancer Maternal Grandmother [...] deformities, skin discol (more content not included)... [facility] 06-30-2023 Note Attestation signed by Christianne Da Silva [...] today will increase methotrexate to 15 mg/week Subjective Patient ID: Delicia Serrano is a [...] weekly -- obta (more content not included)... [facility] 06-02-2023 Note Subjective Patient ID: Delicia [...] Scheduling Instructions: The phone number to contact [facility] Radiology is Once you have been placed [...] Negative mg/dL Bilirubin, Urine Negative Negative Specific [place], Urine 1.027 (H) 1.015 - 1.020 Ketones, [...] 11 7 - (more content not included)... [facility] 06-02-2023 Note Subjective Patient ID: Delicia [...] Scheduling Instructions: The phone number to contact [facility] Radiology is Once you have been placed into the phone tree, it will prompt with the following options. 1 - CT scheduling 2 - MRI scheduling 3 - Ultrasound scheduling 4 - X-ray, Nuclear Medicine, Mammograms scheduling 5 - Reports/Image requests or general questions Order Specific Question: Is the patient ? An (more content not included)... [facility] 04-21-2023 Note Interventional Pain Management Nursing Note / Nurse Post-Call Note S/p ИВАН MBB L4/5 L5/S1 #1 Post call VM left to call department with results of procedure. [facility] 03-24-2023 [place] [address] Date: 03/24/23 Referral Source: No ref. provider [...] state, incidental Lumbar radiculopathy Seronegative arthritis Other intermediate (current) drug therapy Past Surgical History: Procedure [...] Arthritis Maternal Grandfather Dominick Cancer Maternal Grand[facility] [place] Diabetes Maternal Grandfather Dominick Stroke Maternal Grandfather [...] degrees Pain with (more content not included)... 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 [facility] 03-23-2023 Note PAIN INCREASES WHE G OING FROM SITTING TO STANDING PAIN INCREASES TO 4/10 [facility] 11-20-2022 Progress note Note Date/Time November 20, 2022 11:[address] [place] [address] Cancer Center at [address] [address] Hem/Onc Follow Up Note - OP Signed Patient: Delicia Serrano MR#: [id number] : 1980 Acct:[id number] Age/Sex: 42 / F Type: REG RCR [...] dizziness or focal weakness or sensory changes. [facility] - Medical History Medical History: Medical History [...] mg/1.5 mL subcutaneous auto-injector (Ajovy) 225 mg [id number] 11/03/22 [History Confirmed 11/20/22] furosemide 20 mg [...] 94. Total bilirubin 0.3. Her LDH was [id number]. Serum protein electrophoresis revealed no M protein [...] IgE G was 676 normal IgM was [id number] and IgA was normal at 92. Rheumatoid [...] for coordination of care (as documented) and [id number] counseling of patient and/or family. Dictated By: Mariana Crotes MD DD/ [id number] Signed By: <Electronically signed by Mariana Cortes MD> 11/20/22 1113 [facility] Work Phone: 1(161) 765-806508-23-2023 Consult note Author Nicki [facility]nd.[facility] November 05, 2022 4:26pm Note Date/Time November 04, 2022 3: 55pm [facility] at [address] [address] Hem/Onc Consult Note - OP Signed Patient: Delicia Serrano MR#: [id number] : 1980 Acct:[id number] Age/Sex: 42 / F Type: REG RCR [...] for which she takes Lasix every day. [facility] - Medical History Medical History: Medical History [...] mg/1.5 mL subcutaneous auto-injector (Ajovy) 225 mg [id number] 11/03/22 [History Confirmed 11/03/22] furosemide 20 mg [...] for coordination of care (as documented) and [id number] counseling of patient and/or family. Dictated By: Nicki Duran APRN DD/ [id number] Signed By: <Electronically signed by TATUM Duran> 11/05/22 1627 [facility] Work Phone: [phone]) 162-207505-15-2021 NoteInfectious Disease COVID-19 Frequently Asked Questions COVID-19 (coronavirus disease) is an infection that is caused by a large family of viruses. Some viruses cause illness in people and others cause illness in animals like camels, cats, and bats. In some cases, the viruses that cause illness in animals can spread to humans. Where did the coronavirus come from? In February 2019, [place] told the World Health Organization (WHO) of several cases of lung disease (human respiratory illness). These cases were linked to an open seafood and livestock market in the [facility]. The link to the seafood and livestock [...] and virus naming World Health Organization (WHO): www.who.int/emergencies/diseases/nurur-frqgvgcktve-6505/technical-g uidance/sffmyf-zou-yhcrdbygria-disease-(covid-2019)-ajj-tgy-jbaub-wiqc-moyulf-vg Who is at risk for complications from [...] testing. Samples may in (more content not included)...[facility] Author Nicki Duran [facility] November 05, 2022 4:26pm Note Date/Time November 04, 2022 3: 55pm [facility] at [address] [address] Hem/Onc Consult Note - OP Signed Patient: Delicia Serrano MR#: [id number] : 1980 Acct:[id number] Age/Sex: 42 / F Type: REG RCR [...] for which she takes Lasix every day. [facility] - Medical History Medical History: Medical History [...] mg/1.5 mL subcutaneous auto-injector (Ajovy) 225 mg [id number] 11/03/22 [History Confirmed 11/03/22] furosemide 20 mg [...] for coordination of care (as documented) and [id number] counseling of patient and/or family. Dictated By: Nicki Duran APRN DD/ [id number] Signed By: <Electronically signed by TATUM Duran> 11/05/22 1626 [facility] Work Phone: Evaluation noteNo assessment information available [facility] Work Phone: Evaluation note* Diagnosis Onset Date Resolution Status Abnormal SPEP acute [facility] Work Phone: Evaluation note* Diagnosis Migraine without status migrainosus, not intractable, unspecified migraine type (CMS/HCC)- Primary Chronic tension-type headache, not intractable Chronic tension type headache Transient alteration of awareness Vertigo Dizziness and giddiness Myalgia Unspecified myalgia and myositis Degenerative disc disease, cervical Radiculopathy of cervical region Well woman exam with routine gynecological exam Routine gynecological examination Cervical cancer screening Screening for malignant neoplasm of the cervix Screening for HPV (human papillomavirus) Special screening examination for human papillomavirus (HPV) Intrauterine device surveillance Other screening mammogram [facility] Diagnosis Postcoital bleeding- Primary Urinary, incontinence, stress female Female stress incontinence Screening for HPV (human papillomavirus) Special screening examination for human papillomavirus (HPV) Intrauterine device surveillance Other screening mammogram Intrauterine contraceptive device threads lost, initial encounter [facility] Diagnosis Transient alteration of awareness- Primary Vertigo Dizziness and giddiness Chronic tension-type headache, not intractable Chronic tension type headache Syncope, unspecified syncope type [facility] Diagnosis Migraine without status migrainosus, not intractable, unspecified migraine type (CMS/HCC)- Primary Transient alteration of awareness Vertigo Dizziness and giddiness Syncope, unspecified syncope type HILARY (obstructive sleep apnea) Obstructive sleep apnea (adult) (pediatric) documented [facility] Diagnosis Insomnia, unspecified type [facility] this encounter [facility] Author Mariana Cortes [facility] November 20, 2022 11:13am Note Date/Time November 20, 2022 11:09am [facility] at [address] [address] Hem/Onc Follow Up Note - OP Signed Patient: Delicia Serrano MR#: [id number] : 1980 Acct:[id number] Age/Sex: 42 / F Type: REG RCR [...] dizziness or focal weakness or sensory changes. [facility] - Medical History Medical History: Medical History [...] mg/1.5 mL subcutaneous auto-injector (Ajovy) 225 mg [id number] 11/03/22 [History Confirmed 11/20/22] furosemide 20 mg [...] 94. Total bilirubin 0.3. Her LDH was [id number]. Serum protein electrophoresis revealed no M protein [...] IgE G was 676 normal IgM was [id number] and IgA was normal at 92. Rheumatoid [...] for coordination of care (as documented) and [id number] counseling of patient and/or family. Dictated By: Mariana Cortes MD DD/ [id number] Signed By: <Electronically signed by Mariana Cortes MD> 11/20/22 1113 [facility] Work Phone: Summary Purpose Family History Relationship Condition Age at Onset Recorded Date/T shirley Not Specified Hypercholesterolemia Unknown Hypertension Unknown father Hypercholesterolemia Unknown Advance Directives Advance Directive Response Recorded Date/ Time Advance [...] gamma pseudotumor Reason for Visit Abnormal SPEP Reason for Referral Specialty Diagnoses / Procedures Referred By Alex t Referred To Contact Radiology Diagnoses Transient alteration of awareness Vertigo Chronic tension-type headache, not intractable Syncope, unspecified syncope type Procedures MR brain w and wo contrast routine Disha Dillard PA [address] [place] [address] Referral ID Status Reason Start Date Expiration Date V isits Requested Visits Authorized [id number] Pending Review 12/02/2023 05/30/2024 1 1 Additional Source Comments INFORMATION SOURCE (unrecogn ized section and content) DATE CREATED AUTHOR 08/11/2020 [facility] DATE CREATED AUTHOR AUTHOR'S IVELISSEIZ ATION 07/14/2021 [facility] Special[facility] DATE CREATED AUTHOR AUTHOR'S ORGANIZ ATION 07/22/2022 [facility] DATE CREATED AUTHOR AUTHOR'S ORGANIZ ATION 02/26/2024 [facility] EPIC DATE CREATED AUTHOR AUTHOR'S ORGANIZ ATION 03/07/2024 [facility] DATE CREATED AUTHOR AUTHOR'S ORGANIZ ATION 03/08/2024 [facility] Care Teams (unrecognized sec tion and [...] Active Jenny Reis NP-C Attending Provider Active General Contractor Relationship Specialty Start Date End Date Boyd Herrera MD [address] [place] [address] PCP - General Family Medicine 08/26/22 General Contractor Relationship Specialty Start Date End Date Boyd Herrera MD [address] [place] [address] PCP - General Family Medicine 08/26/22 General Contractor Relationship Specialty Start Date End Date Boyd Herrera MD [address] [place] [address] PCP - General Family Medicine 08/26/22 General Contractor Relationship Specialty Start Date End Date Boyd Herrera MD [address] [place] [address] PCP - General Family Medicine 08/26/22 General Contractor Relationship Specialty Start Date End Date Boyd Herrera MD [address] [phone] PCP - General Family Medicine 08/26/22 General Contractor Relationship Specialty Start Date End Date oByd Herrera MD [address] [phone] PCP - General Family Medicine 08/26/22 General Contractor Relationship Specialty [place] [address] [place], [place] [phone] PCP - General Family Medicine 08/26/22 General Contractor Relationship Specialty Start Date End Date Boyd Herrera MD [address] [place], [place] [phone] PCP - General Family Medicine 08/26/22 General Contractor Relationship Specialty Start Date End Date Boyd Herrera MD [address] [place], [place] [phone] PCP - General Family Medicine 08/26/22 Huey Sims MD [address] [phone] Referring Physician Neurology 02/23/24 Jenny Reis MD [address] [place], [place] [phone] Referring Physician Family Medicine 02/23/24 General Contractor Relationship Specialty [place] [address] [place], [place] [phone] PCP - General Family Medicine 08/26/22 Huey Sims MD [address] [place] [address] Referring Physician Neurology 02/23/24 Jenny Reis MD [address] [place] [phone] Referring Physician Family Medicine 02/23/24 General Contractor Relationship Specialty Start Date End Date Boyd Herrera MD [address] [place] [phone] PCP - General Family Medicine 08/26/22 Huey Sims MD [address] [phone] Referring Physician Neurology 02/23/24 Jenny Reis MD [address] [place] [phone] Referring Physician Family Medicine 02/23/24 Goals (unrecognized section and content) Goals may be documented in a n alternate sectionGoals may be documented in an alternate sectionGoals may be documented in an alternate sectionGoals may be documented in an alternate sectionGoals may be documented in an alternate sectionGoals may be documented in an alternate sectionGoals may be documented in an alternate section Reason for Visit (unrecogniz ed section and content) Reason Comments Dizziness Leg Pain Numbness Headache Reason Comments Migraine Dizziness Pain Reason Comments Med Refill FOR RECORDS PERTAINING TO PATIENTS WHO ARE [...] BE BASED ON THE PRIMARY CLINICAL RECORDS. [facility]. provides no warranty or guarantee of the accuracy or completeness of information in this document.
--- NOTE | 2024-03-18 20:44 | ECG_ITS ---
The 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
--- NOTE | 2024-03-18 20:44 | XR_ITS ---
The [address] [address] Patient Name: FABIOLA SERRANO MRN: [id number] date: 1980 Sex: F Assigned Patient Location: ER Current Patient Location: ER Accession/Order Number: [id number] Exam Date: 03/18/2024 20:50 Report Date: 03/18/2024 21:24 At the request of: DANTE LEUNG Procedure: XR chest 1V EXAMINATION: XR chest 1V HISTORY: SOB COMPARISON: XR chest 08/12/2021 FINDINGS: LUNGS: Underexpanded lungs with mild haziness and stranding within lung bases, left greater than right. VASCULATURE: No increased pulmonary vasculature. PLEURA: No pneumothorax, effusion, or pleural thickening. CARDIAC: No cardiomegaly or cardiac silhouette abnormality. MEDIASTINUM: No visible mass or adenopathy. BONES: No fracture or visible bone lesion. OTHER: Negative. XR/XR chest 1V IMPRESSION: 1. Mild right, moderate left basilar infiltrates versus atelectasis. Electronically authenticated by: CARO MARTINEZ Date: 03/18/2024 21:24
--- NOTE | 2024-03-18 20:45 | ED.SOB1 ---
HPI - SOB/Dyspnea General Chief Complaint: Shortness of Breath/Dyspnea Stated Complaint: SOB Time Seen by Provider: 03/18/24 20:27 Source: patient Mode of arrival: walk-in Limitations: no limitations History of Present Illness HPI Narrative: 43-year-old female presents for shortness of breath. This is her third day of having this. 2 days ago she had a fever of 101.3 but that seems to have gone away. She has had a very slight cough. She does not complain of chest pain or back pain. No vomiting or diarrhea. She states she took a home COVID test and it was negative. Related Data Home Medications ?Medication ?Instructions ?Recorded ?Confirmed amoxicillin 500 mg-potassium 1 tab PO BID 02/07/23 02/07/23 clavulanate 125 mg tablet buspirone 10 mg tablet 10 mg PO BID 02/07/23 02/07/23 cetirizine 5 mg-pseudoephedrine ER 1 tab PO DAILY PRN allergy symptoms 02/07/23 02/07/23 120 mg tablet,extended release,12hr (All Day Allergy-D) cyanocobalamin (vitamin B-12) 1,000 mcg IM .QMONTH 02/07/23 02/07/23 1,000 mcg/mL injection solution duloxetine 20 mg capsule,delayed 20 mg PO QPM 02/07/23 02/07/23 release (Cymbalta) furosemide 20 mg tablet (Lasix) 20 mg PO BID 02/07/23 02/07/23 meloxicam 15 mg tablet 15 mg PO QPM 02/07/23 02/07/23 multivitamin 1 tab PO DAILY 02/07/23 02/07/23 potassium chloride 10 mEq 10 meq PO BID 02/07/23 02/07/23 tablet,extended release quetiapine 50 mg tablet (Seroquel) 50 mg PO QPM 02/07/23 02/07/23 simvastatin 20 mg tablet 20 mg PO QPM 02/07/23 02/07/23 sumatriptan succinate 50 mg tablet See Rx Instructions PO .COMPLEX 02/07/23 02/07/23 (Imitrex) tizanidine 4 mg tablet 12 mg PO QPM 02/07/23 02/07/23 topiramate 25 mg tablet 75 mg PO QPM 02/07/23 02/07/23 trazodone 50 mg tablet 50 mg PO QPM PRN sleep 02/07/23 02/07/23 zolpidem 10 mg tablet (Ambien) 10 mg PO QPM PRN sleep 02/07/23 02/07/23 Previous Rx's ?Medication ?Instructions ?Recorded azithromycin 250 mg tablet See Rx Instructions PO .COMPLEX #6 03/18/24 (Zithromax Z-Huseyin) tabs Allergies Allergy/AdvReac Type Severity Reaction Status Date / Time metformin Allergy Severe Abdominal Verified 03/18/24 20:33 Pain Sulfa (Sulfonamide Allergy Severe Anaphylaxis Verified 03/18/24 20:33 Antibiotics) acarbose AdvReac Mild Abdominal Verified 03/18/24 20:33 Pain Review of Systems ROS Narrative A ten point review of systems is negative except as noted above. PFSH PFSH Social History Little interest or pleasure in doing things: not at all Feeling down, depressed, or hopeless: not at all Exam Narrative Exam Narrative: Nurses note and vital signs reviewed and patient is not hypoxic. General: The patient appears well and in no apparent distress. Patient is resting comfortably on cart. Skin: Warm, dry, no pallor noted. There is no rash noted. Head: Normocephalic, atraumatic Eye: Normal conjunctiva, no drainage Ears, Nose, Mouth, and Throat: oral mucosa is moist. Nares patent. Cardiovascular: Regular Rate and Rhythm Respiratory: Patient is in no distress, no accessory muscle use, lungs are clear to auscultation, no wheezing, rales or rhonchi Back: non-tender GI: Soft and nontender Musculoskeletal: The patient has no evidence of calf tenderness, no pitting edema, symmetrical pulses noted bilaterally Neurological: A&O, normal speech Psychiatric: Cooperative Constitutional Vital Signs, click to edit/add: Last Vital Signs Temp 97.5 F L 03/18/24 20:33 Pulse 81 03/18/24 21:30 Resp 17 03/18/24 21:30 BP 123/90 03/18/24 21:30 Pulse Ox 94 L 03/18/24 21:30 O2 Del Method Room Air 03/18/24 20:33 Course Vital Signs Vital signs: Vital Signs Temperature 97.5 F L 03/18/24 20:33 Pulse Rate 95 H 03/18/24 20:33 Respiratory Rate 18 03/18/24 20:33 Blood Pressure 111/78 03/18/24 20:33 Pulse Oximetry 97 03/18/24 20:33 Oxygen Delivery Method Room Air 03/18/24 20:33 Temperature 97.5 F L 03/18/24 20:33 Pulse Rate 81 03/18/24 21:30 Respiratory Rate 17 03/18/24 21:30 Blood Pressure 123/90 03/18/24 21:30 Pulse Oximetry 94 L 03/18/24 21:30 Oxygen Delivery Method Room Air 03/18/24 20:33 MDM - SOB/Dyspnea MDM Narrative Medical decision making narrative: COVID and influenza are negative. Chest x-ray per radiologist suggest pneumonia. She is prescribed Zithromax and was given first dose here. Treatment diagnosis and follow-up were discussed with the patient. Differential Diagnosis Differential diagnosis: Likely community acquired pneumonia and other (COVID, influenza, viral URI) Lab Data Attestation: I reviewed the patient's lab results. Labs: Lab Results 03/18/24 Range/Units 21:05 WBC 11.7 H (4.0-11.0) 10^3/uL RBC 4.55 (4.20-5.40) 10^6/uL Hgb 14.1 (12.0-16.0) g/dL Hct 43.1 (36.0-48.0) % MCV 94.7 (81.0-99.0) fL MCH 31.0 (26.7-34.0) pg MCHC 32.7 (29.9-35.2) g/dL RDW 13.8 (11.0-15.0) % Plt Count 326 (150-450) 10^3/uL MPV 8.3 L (9.5-13.5) fL Sodium 139 (136-145) mmol/L Potassium 4.0 (3.5-5.1) mmol/L Chloride 106 (98-107) mmol/L Carbon Dioxide 24.8 (21.0-32.0) mmol/L Anion Gap 12.2 BUN 17.0 (7.0-18.0) mg/dL Creatinine 1.04 H (0.55-1.02) mg/dL Est GFR ( Amer) >60 (>=60 mL/min/1.73m^2) Est GFR (Non-Af Amer) 58 L (>=60 mL/min/1.73m^2) BUN/Creatinine Ratio 16.3 Glucose 81 (74-106) mg/dL Calcium 8.9 (8.5-10.1) mg/dL Influenza Type A Ag Negative Influenza Type B Ag Negative SARS-CoV-2 Ag (CV2AG) Negative (NEGATIVE) Imaging Data Chest x-ray: Radiologist's impression: ITS Impressions Chest X-Ray 03/18/24 20:44 IMPRESSION: 1. Mild right, moderate left basilar infiltrates versus atelectasis. Electronically authenticated by: CARO MARTINEZ Date: 03/18/2024 21:24 Discharge Plan Discharge Chief Complaint: Shortness of Breath/Dyspnea Clinical Impression: Pneumonia Patient Disposition: Home, Self-Care Time of Disposition Decision: 21:42 Condition: Good Mode of Transportation: Private Vehicle Prescriptions / Home Meds: New azithromycin [Zithromax Z-Huseyin] 250 mg tablet See Rx Instructions .ROUTE .COMPLEX Qty: 6 0RF Rx Instructions: For 250 mg dose pack: take 500 mg today (day 1), then 250 mg for 4 days (days 2-5) No Action amoxicillin-pot clavulanate 500-125 mg tablet 1 tab PO BID buspirone 10 mg tablet 10 mg PO BID cyanocobalamin (vitamin B-12) 1,000 mcg/mL solution 1,000 mcg IM .QMONTH duloxetine [Cymbalta] 20 mg capsule,delayed release(DR/EC) 20 mg PO QPM furosemide [Lasix] 20 mg tablet 20 mg PO BID meloxicam 15 mg tablet 15 mg PO QPM multivitamin Tablet 1 tab PO DAILY potassium chloride 10 mEq tablet extended release 10 meq PO BID quetiapine [Seroquel] 50 mg tablet 50 mg PO QPM simvastatin 20 mg tablet 20 mg PO QPM tizanidine 4 mg tablet 12 mg PO QPM topiramate 25 mg tablet 75 mg PO QPM zolpidem [Ambien] 10 mg tablet 10 mg PO QPM PRN (Reason: sleep) trazodone 50 mg tablet 50 mg PO QPM PRN (Reason: sleep) cetirizine-pseudoephedrine [All Day Allergy-D] 5-120 mg tablet extended release 12 hr 1 tab PO DAILY PRN (Reason: allergy symptoms) sumatriptan succinate [Imitrex] 50 mg tablet See Rx Instructions .ROUTE .COMPLEX Rx Instructions: take 1 tab at onset of headache; if no relief may repeat 1 tab after at least 2 hrs; max = 4 tabs/24 hr Print Language: German Instructions: Community Acquired Pneumonia (ED) Additional Instructions: Hold methotrexate on Thursday Referrals: CALVIN REIS [Primary Care Provider] - 1 week
[2024-03-18 21:18] LABS: Hematocrit 43.1 % (36.0-48.0); Hemoglobin 14.1 g/dL (12.0-16.0); Mean Corpuscular HGB Conc 32.7 g/dL (29.9-35.2); Mean Corpuscular Volume 94.7 fL (81.0-99.0); Mean Platelet Volume 8.3 fL (9.5-13.5); Platelet Count 326 10^3/uL (150-450); Red Blood Count 4.55 10^6/uL (4.20-5.40); Red Cell Distribution Width 13.8 % (11.0-15.0); White Blood Count 11.7 10^3/uL (4.0-11.0)
[2024-03-18 21:29] LABS: Anion Gap 12.2; BUN Creatinine Ratio 16.3; Calcium 8.9 mg/dL (8.5-10.1); Carbon Dioxide 24.8 mmol/L (21.0-32.0); Chloride 106 mmol/L (98-107); Estimated GFR (African America >60 (>=60 mL/min/1.73m^2); Estimated GFR (Non-African Ame 58 (>=60 mL/min/1.73m^2); Glucose 81 mg/dL (74-106); Sodium 139 mmol/L (136-145)
[2024-03-18 21:32] LABS: Influenza Virus A Antigen Negative; Influenza Virus B Antigen Negative; Internal Control Within Normal Limits; SARS-CoV-2 Ag NEGATIVE (NEGATIVE)
[2024-03-18] MEDS: AZITHROMYCIN 250 MG TABLET 500 MG PO (21:50)
[2024-03-18 21:55] LABS: Eosinophils Absolute Manual 1.05 10^3/uL (0.00-0.70); Lymphocytes Absolute Manual 5.38 10^3/uL (1.20-3.80); Monocytes Absolute Manual 0.81 10^3/uL (0.30-0.80); Segmented Neut Absolute Manual 4.44 10^3/uL (1.4-6.5)
== END 2024-03-18 21:55 | disposition home or self-care (01) ==
PROVIDERS: Emergency Provider Emergency Medicine; PCP Nurse Practitioner Family
DX: J18.9 Pneumonia, unspecified organism (principal)
CPT/HCPCS: 36415; 71045; 80048; 85007; 85027; 87804; 87811; 93005; 99285

== ENCOUNTER 2025-02-07 09:59 | Outpatient (RCR) | payer OTHER, SELFPAY | END 2025-02-08 09:05 | disposition home or self-care (01) | LOC: PT 09:59 | PROVIDERS: PCP Nurse Practitioner Family; Visit Provider Nurse Practitioner Family | DX: M54.9 Dorsalgia, unspecified (principal); M06.9 Rheumatoid arthritis, unspecified; M54.12 Radiculopathy, cervical region | CPT/HCPCS: 97750 ==